=== PATIENT | female | born 1965 ===

== ENCOUNTER 2020-09-03 11:02 | Outpatient (REF) | payer MEDICARE, MEDICAID, SELFPAY ==
--- NOTE | 2020-09-03 | MM_ITS ---
EXAMINATION: MM SCREENING DIGITAL BREAST TOMOSYNTHESIS, BILATERAL CLINICAL INFORMATION: Screening. Asymptomatic. The lifetime risk of breast cancer based on the Tyrer-Cuzick Model is 16%. COMPARISON: Mammography: 03/22/2018, 12/31/2016 TECHNIQUE: Digital breast tomosynthesis is performed in both the craniocaudal and mediolateral oblique views along with computer-aided detection (CAD). Synthesized 2D images are generated from the tomosynthesis. FINDINGS: The breasts are almost entirely fatty (ACR BI-RADS breast composition Category a). There are no significant masses, abnormal calcifications, or other abnormalities. Background stromal densities are stable. The axilla and skin contours are unremarkable. MM/MM tomosynthesis screening BI IMPRESSION: No mammographic evidence of malignancy. ASSESSMENT: BI-RADS 1: Negative RECOMMENDATION: Routine annual mammography screening. This patient's information was entered into a reminder system with a target due date for their next mammogram.
== END 2020-09-03 11:03 | disposition home or self-care (01) ==
LOC: HO.MAMMO 11:02
PROVIDERS: Visit Provider Internal Medicine
DX: Z12.31 Encounter for screening mammogram for malignant neoplasm of breast (principal)
CPT/HCPCS: 77063; 77067

== ENCOUNTER → 2020-09-20 11:24 | Outpatient (BNVA) | payer MEDICARE, MEDICAID, SELFPAY | PROVIDERS: PCP Internal Medicine; Referring Provider Internal Medicine; Visit Provider Internal Medicine Endocrinology, Diabetes & Metabolism | DX: Z13.89 Encounter for screening for other disorder (principal) | CPT/HCPCS: Q3014 ==

== ENCOUNTER 2020-09-21 09:48 | Outpatient (REF) | payer MEDICARE, MEDICAID, SELFPAY ==
[2020-09-21 11:28] LABS: Estimated Average Glucose 171 mg/dL; Hemoglobin A1c % 7.6 %
[2020-09-21 11:29] LABS: Alanine Aminotransferase 21 U/L (0-31); Albumin Level 4.5 g/dL (3.5-5.0); Alkaline Phosphatase 93 U/L (39-117); Anion Gap 15 (12-20); Aspartate Amino Transferase 27 U/L (5-31); Bilirubin Total 0.6 mg/dL (0.0-1.0); Blood Urea Nitrogen 14 mg/dL (9-16); Calcium 9.5 mg/dL (8.4-10.2); Carbon Dioxide 28 mmol/L (22-29); Chloride 101 mmol/L (96-108); Estimated Glomerular Filt Rate > 60; Glucose Fasting 113 mg/dL (60-99); Potassium 4.7 mmol/l (3.3-5.1); Sodium 139 mmol/L (135-145); Total Protein 7.3 g/dL (6.5-8.0)
== END 2020-09-21 09:49 | disposition home or self-care (01) ==
LOC: HO.LAB 09:48
PROVIDERS: PCP Internal Medicine; Visit Provider Internal Medicine Endocrinology, Diabetes & Metabolism
DX: E11.65 Type 2 diabetes mellitus with hyperglycemia (principal)
CPT/HCPCS: 80053; 83036

== ENCOUNTER 2020-11-01 10:14 | Outpatient (REF) | payer MEDICARE, MEDICAID, SELFPAY | END 2020-11-01 10:15 | disposition home or self-care (01) | LOC: HO.LAB 10:14 | PROVIDERS: PCP Internal Medicine; Visit Provider Internal Medicine | DX: Z20.828 Contact with and (suspected) exposure to other viral communicable diseases (principal) | CPT/HCPCS: C9803; U0003 ==

== ENCOUNTER 2020-11-12 12:36 | Outpatient (REF) | payer MEDICARE, MEDICAID, SELFPAY ==
[2020-11-13 11:57] LABS: BV Int Neg Control Negative (Negative); BV Int Pos Control Positive (Positive)
[2020-11-15 23:57] LABS: HPV mRNA E6/E7 rflx Not Detected (Not Detected)
== END 2020-11-12 12:37 | disposition home or self-care (01) ==
LOC: HO.LAB 12:36
PROVIDERS: PCP Internal Medicine; Visit Provider Advanced Practice Midwife
DX: Z12.4 Encounter for screening for malignant neoplasm of cervix (principal); N89.8 Other specified noninflammatory disorders of vagina; E66.01 Morbid (severe) obesity due to excess calories; Z68.41 Body mass index [BMI] 40.0-44.9, adult
CPT/HCPCS: 36415; 87480; 87510; 87624; 87660; 88142

== ENCOUNTER 2020-12-08 09:35 | Emergency (ER) | payer MEDICARE, MEDICAID, SELFPAY ==
--- NOTE | 2020-12-08 09:08 | ECG_ITS ---
Test Reason : CHEST PAIN Blood Pressure : / mmHG Vent. Rate : 089 BPM Atrial Rate : 089 BPM P-R Int : 140 ms QRS Dur : 088 ms QT Int : 380 ms P-R-T Axes : 057 026 059 degrees QTc Int : 462 ms Normal sinus rhythm Normal ECG When compared with ECG of 27-MAY-2018 09:00, No significant change was found Referred By: Karina Burger Electronically Signed By:TERESA RAMIREZ MD
[2020-12-08 09:47] VITALS: BP 144/84; BP 146/59; PULSE 83; PULSE 89; RESP 20; TEMP 36.7; O2SAT 100; BMI 41.4
--- NOTE | 2020-12-08 10:05 | XR_ITS ---
EXAMINATION: XR CHEST CLINICAL INFORMATION: CP COMPARISON: 10/23/2012 TECHNIQUE: Frontal view of the chest was obtained. FINDINGS: Cardiac leads overlie the chest. Cardiac and mediastinal contours are normal. Pulmonary vasculature is unremarkable. Lungs are clear. No consolidation, pneumothorax, or pleural effusion. No acute osseous findings. Degenerative spondylosis is present of the thoracic spine. XR/XR chest 1V IMPRESSION: No acute pulmonary findings.
--- NOTE | 2020-12-08 10:06 | ED.GENADULT ---
HPI - General Adult General Chief complaint: Dyspnea Stated complaint: SOB,+COVID Time Seen by Provider: 12/08/20 10:04 Source: patient, EMS and transportation aid Mode of arrival: EMS Limitations: no limitations History of Present Illness HPI narrative: 55-year-old female brought in for shortness of breath since this morning, chest pain started at 06:00, patient describes the pain as dull pressure pain to the left side of the chest, with no radiation, pain is associated with shortness of breath, patient also feel wheezing and coughing, patient describes the pain as a moderate in severity (5/10) and has been constant since 06:00 o'clock in the morning, nothing alleviates the pain, nothing make it worse. Patient remained while the patient in the ED (pain is constant for 3 hours now). Patient was tested positive for COVID 2 weeks ago, then patient had another test followed which was negative. No fever, no chills. Related Data Home Medications Medication Instructions Recorded Confirmed albuterol sulfate 90 mcg/actuation INHALATION 09/20/20 11/12/20 aerosol inhaler bupropion HCl 300 mg 24 hr tablet, mg PO 09/20/20 11/12/20 extended release buspirone 5 mg tablet mg PO BID tab 09/20/20 11/12/20 clonazepam 0.5 mg tablet 0.25 mg PO BEDTIME 09/20/20 11/12/20 duloxetine 60 mg capsule,delayed mg PO 09/20/20 11/12/20 release gabapentin 100 mg capsule mg PO 09/20/20 11/12/20 lisinopril 5 mg tablet mg PO 09/20/20 11/12/20 sertraline 100 mg tablet mg PO 09/20/20 11/12/20 atorvastatin 10 mg tablet 10 mg PO BEDTIME tab 10/09/20 11/12/20 Previous Rx's Medication Instructions Recorded canagliflozin 300 mg tablet 300 mg PO DAILY 30 Days #30 tab 09/20/20 insulin glargine 100 unit/mL (3 20 unit SUBCUT DAILY 30 Days #15 ml 09/20/20 mL) subcutaneous pen metformin 1,000 mg tablet 1,000 mg PO BID 90 Days #180 tab 09/20/20 pen needle, diabetic 32 gauge x #50 ea 09/20/20 semaglutide 0.5 mg SUBCUT QWEEK #1.5 ml 09/20/20 montelukast 10 mg tablet 10 mg PO QPM 90 Days #90 tab 10/09/20 aspirin 81 mg chewable tablet 1 tab PO DAILY #30 tab 11/04/20 cholecalciferol (vitamin D3) 50 50 mcg PO DAILY #90 cap 11/05/20 mcg (2,000 unit) capsule clotrimazole-betamethasone 1 1 appl TOPICAL BID 7 Days #45 g 11/12/20 %-0.05 % topical cream azithromycin 250 mg tablet See Rx Instructions PO .COMPLEX #6 11/21/20 tab diclofenac sodium 1 % topical gel 2 g TRANSDERMAL TID PRN #100 g 12/03/20 Allergies Allergy/AdvReac Type Severity Reaction Status Date / Time egg [EGG] Allergy Intermediate VOMITING Verified 09/20/20 11:16 oxycodone [OXYCODONE] Allergy Intermediate NAUSEA/NIGH Verified 09/20/20 11:16 TMARES Penicillins [PCN] Allergy Intermediate RASH Verified 09/20/20 11:16 tramadol [TRAMADOL] Allergy Intermediate ITCHING Verified 09/20/20 11:16 acetaminophen [Percocet] Allergy Unknown none Verified 09/20/20 11:16 codeine Allergy Unknown nightmares Verified 09/20/20 11:16 Review of Systems Review of Systems: All other systems are reviewed and are negative Constitutional: Reports as per HPI and Reports no additional constitutional complaints Eyes: Reports as per HPI and Reports no additional eye complaints Reports system reviewed and no additional complaints, except as documented Cardiovascular: Reports as per HPI and Reports no additional cardiovascular complaints Respiratory: Reports as per HPI and Reports no additional respiratory complaints Gastrointestinal: Reports as per HPI and Reports no additional gastrointestinal complaints Genitourinary: Reports no additional female genitourinary complaints Musculoskeletal: Reports no additional musculoskeletal complaints Skin/Breast: Reports system reviewed and no additional complaints, except as docu Psychiatric: Reports no additional psychiatric complaints Endocrine: Reports no additional endocrine complaints Hematologic/Lymphatic: Reports no additional hematologic/lymphatic complaints Allergic/Immunologic: Reports no additional allergic/immunologic complaints Reports system reviewed and no additional complaints, except as documented and Reports Abnormal speech present PMFSH Past Medical History Medical History Allergic rhinitis Anxiety Arthritis Asthma Asthma Benign essential hypertension Depression Diabetes mellitus Diabetes type 2, uncontrolled Diabetic acidosis, type I Diabetic nephropathy associated with type 2 diabetes mellitus Dyslipidemia Fibromyalgia Fibromyalgia GERD without esophagitis Hypertension Insomnia Iron deficiency long-term (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 Obesity Obesity (BMI 30-39.9) Osteoarthrosis Pure hypercholesterolemia Vitamin D deficiency Surgical History History of loop electrical excision procedure (LEEP) Hx of hernia repair Family History Family History Father Diabetes Mother No problems noted. Maternal Grandmother Breast cancer Social History Social History Alcohol intake: never Smoking Status: Never smoker Use of substances other than those prescribed or required for medical reasons: No Advance Directives: No Advance Directives Information Provided: No Physical Exam Vital Signs: Vital Signs: Last Vital Signs Temp 98.0 F 12/08/20 09:47 Pulse 81 12/08/20 11:25 Resp 20 12/08/20 11:25 BP 116/76 12/08/20 11:25 Pulse Ox 98 12/08/20 11:25 Body Mass Index 41.4 Vital signs have been reviewed as normal and appeared to be correct. Blood pressure in the high range. Heart rate normal. Respiration rate normal. Temperature normal. Oxygen saturation normal. Appearance: Alert. Oriented X3. No acute distress. Head: Normal external exam. Normocephalic. Atraumatic. No Brenner signs noted. No raccoon eyes noted Eyes: PERRLA. EOMI. Conjunctiva and sclera normal. Eyelids normal. ENT: EAC normal. TM's Normal. Pharynx normal. Uvula midline. Moist mucous membranes. No trismus noted. No drooling noted. No muffled voice noted. Neck: Normal inspection. Neck supple. FROM. No adenopathy. Thyroid Normal. No meningeal signs. No neck mass noted. CVS: Normal heart rate and rhythm. Heart sound normal. No murmurs noted. Pulses normal throughout. Respiratory: No respiratory distress. Painless inspiration. Breath sounds normal. Diffuse mild expiratory wheezes bilaterally, no rales/rhonchi noted. Chest nontender. No accessory muscle usage noted or decreased air movement noted. Abdomen: Soft and nontender. Bowel sounds normal in all 4 quadrants. No distention noted. No organomegaly noted. No visible injury noted. Back: No CVA tenderness. Full range of motion noted. Skin: Skin warm and dry. Normal skin color. Normal skin turgor. No rashes/lesions/lacerations noted. Extremities: No lower extremity edema. Extremities exhibit normal range of motion. Extremities nontender. Neuro: Oriented X 3. No motor deficit. No sensory deficit. Reflexes normal. Course Course Course Narrative: Assessment and plan. 55-year-old female came in with chest pain for the past 5 hours, shortness of breath, patient appear very anxious which felt to be contributing to patient's symptoms. Patient has unremarkable EKG, negative troponin (high sensitive), unremarkable chest x-ray, negative for COVID, patient feels and appear better. Spoke with the patient reassured her patient is okay to be discharged home. Medical Decision Making Lab Data Lab results reviewed: Yes I reviewed the patient's lab results. Result diagrams: 12/08/20 11:00 12/08/20 11:00 Labs: Lab Results 12/08/20 12/08/20 12/08/20 Range/Units 11:00 11:00 11:00 WBC 9.1 (4.8-10.8) X10*3/uL RBC 5.36 (4.20-5.50) X10*6/uL Hgb 13.2 (12.0-16.0) g/dl Hct 42.1 (37-47) % MCV 78.5 L (80-98) fL MCH 24.6 L (27.0-33.0) pg MCHC 31.4 (31.0-35.0) g/dl RDW 14.8 (11.0-16.0) % Plt Count 265 (160-400) X10*3/uL MPV 10.4 (9.4-12.3) fL Immature Gran % (Auto) 0.5 H (0.0-0.4) % Neut % (Auto) 76.0 H (45-73) % Lymph % (Auto) 19.2 L (20-40) % [place] % (Auto) 3.0 (2-11) % Eos % (Auto) 1.0 (0-4) % Baso % (Auto) 0.3 (0-2) % Lymph # (Auto) 1.8 (1.2-4.9) X10*3/uL [place] # (Auto) 0.3 (0.1-1.2) X10*3/uL Eos # (Auto) 0.1 (0.0-0.4) X10*3/uL Baso # (Auto) 0.0 (0.0-0.2) X10*3/uL Abs Immat Gran (auto) 0.05 H (0.00-0.03) X10*3/uL Absolute Neuts (auto) 6.9 (2.0-8.3) X10*3/uL Absolute Nucleated RBC 0.000 (0.0-0.012) X10*3/uL Nucleated RBC % (auto) 0.0 (0.0-0.2) /100WBC Sodium 139 (135-145) mmol/L Potassium 4.5 (3.3-5.1) mmol/L Chloride 102 (96-108) mmol/L Carbon Dioxide 25 (22-29) mmol/L Anion Gap 17 (12-20) BUN 13 (9-16) mg/dL Creatinine 0.74 (0.5-1.4) mg/dL Estim Creat Clear Calc 105.1 Estimated GFR > 60 Random Glucose 188 H (60-115) mg/dL Calcium 9.5 (8.4-10.2) mg/dL Total Bilirubin 0.8 (0.0-1.0) mg/dL Direct Bilirubin 0.2 (0.0-0.5) mg/dL AST 26 (5-31) U/L ALT 29 (0-31) U/L Alkaline Phosphatase 109 (39-117) U/L Troponin I High Sens < 3.5 (<3.5-17.0) ng/L Total Protein 6.8 (6.5-8.0) g/dL Albumin 4.2 (3.5-5.0) g/dL Lipase 77 (8-78) U/L COVID-19 ([facility]) (Negative) COVID-19 Clin Com 12/08/20 Range/Units 11:00 WBC (4.8-10.8) X10*3/uL RBC (4.20-5.50) X10*6/uL Hgb (12.0-16.0) g/dl Hct (37-47) % MCV (80-98) fL MCH (27.0-33.0) pg MCHC (31.0-35.0) g/dl RDW (11.0-16.0) % Plt Count (160-400) X10*3/uL MPV (9.4-12.3) fL Immature Gran % (Auto) (0.0-0.4) % Neut % (Auto) (45-73) % Lymph % (Auto) (20-40) % [place] % (Auto) (2-11) % Eos % (Auto) (0-4) % Baso % (Auto) (0-2) % Lymph # (Auto) (1.2-4.9) X10*3/uL [place] # (Auto) (0.1-1.2) X10*3/uL Eos # (Auto) (0.0-0.4) X10*3/uL Baso # (Auto) (0.0-0.2) X10*3/uL Abs Immat Gran (auto) (0.00-0.03) X10*3/uL Absolute Neuts (auto) (2.0-8.3) X10*3/uL Absolute Nucleated RBC (0.0-0.012) X10*3/uL Nucleated RBC % (auto) (0.0-0.2) /100WBC Sodium (135-145) mmol/L Potassium (3.3-5.1) mmol/L Chloride (96-108) mmol/L Carbon Dioxide (22-29) mmol/L Anion Gap (12-20) BUN (9-16) mg/dL Creatinine (0.5-1.4) mg/dL Estim Creat Clear Calc Estimated GFR Random Glucose (60-115) mg/dL Calcium (8.4-10.2) mg/dL Total Bilirubin (0.0-1.0) mg/dL Direct Bilirubin (0.0-0.5) mg/dL AST (5-31) U/L ALT (0-31) U/L Alkaline Phosphatase (39-117) U/L Troponin I High Sens (<3.5-17.0) ng/L Total Protein (6.5-8.0) g/dL Albumin (3.5-5.0) g/dL Lipase (8-78) U/L COVID-19 ([facility]) Negative (Negative) COVID-19 Clin Com See Note Imaging Data Chest x-ray: Radiologist's impression: No acute pulmonary findings. ECG Data Interpretation: Normal sinus rhythm at 89 beats per minute, normal axis deviation, normal intervals, no ST-T changes. Discharge Plan Discharge Clinical Impression: Anxiety Chest pain Qualifiers: Chest pain type: unspecified Qualified Code(s): R07.9 - Chest pain, unspecified Patient Disposition: Home, Self-Care Instructions: Chest Pain (ED) Prescriptions: No Action metformin 1,000 mg tablet 1,000 mg PO BID 90 Days Qty: 180 RF: 2 aspirin 81 mg tablet,chewable 1 tab PO DAILY Qty: 30 RF: 6 cholecalciferol (vitamin D3) 50 mcg (2,000 unit) capsule 50 mcg PO DAILY Qty: 90 RF: 1 azithromycin 250 mg tablet See Rx Instructions PO .COMPLEX Qty: 6 RF: 0 diclofenac sodium 1 % gel 2 g transdermal TID PRN (Reason: pain) Qty: 100 RF: 6 atorvastatin 10 mg tablet 10 mg PO BEDTIME RF: 0 montelukast 10 mg tablet 10 mg PO QPM 90 Days Qty: 90 RF: 3 albuterol sulfate 90 mcg/actuation HFA aerosol inhaler inhalation RF: 0 bupropion HCl 300 mg tablet extended release 24 hr PO RF: 0 buspirone 5 mg tablet PO BID RF: 0 duloxetine 60 mg capsule,delayed release(DR/EC) PO RF: 0 clonazepam 0.5 mg tablet 0.25 mg PO BEDTIME RF: 0 lisinopril 5 mg tablet PO RF: 0 sertraline 100 mg tablet PO RF: 0 gabapentin 100 mg capsule PO RF: 0 canagliflozin 300 mg tablet 300 mg PO DAILY 30 Days Qty: 30 RF: 6 insulin glargine 100 unit/mL (3 mL) insulin pen 20 unit subcut DAILY 30 Days Qty: 15 RF: 6 Ozempic 0.25 mg or 0.5 mg(2 mg/1.5 mL) pen injector 0.5 mg subcut QWEEK Qty: 1.5 RF: 6 (DME) pen needle, diabetic [BD Pippa 2nd Gen Pen Needle] 32 gauge x 5/32 needle See Rx Instructions .MEDSUPPLY Qty: 50 RF: 4 clotrimazole-betamethasone 1-0.05 % cream 1 appl topical BID 7 Days Qty: 45 RF: 0 Referrals: Dwayne Stone MD [Primary Care Provider] - 2 days
[2020-12-08 11:04] LABS: MANUAL DIFF FLAG NO
[2020-12-08 11:06] LABS: Basophils Percent Auto 0.3 % (0-2); Eosinophils Absolute Auto 0.1 X10*3/uL (0.0-0.4); Hematocrit 42.1 % (37-47); Hemoglobin 13.2 g/dl (12.0-16.0); Imm Gran Abs Auto 0.05 X10*3/uL (0.00-0.03); Imm Gran Pct Auto 0.5 % (0.0-0.4); Lymphocytes Absolute Auto 1.8 X10*3/uL (1.2-4.9); Lymphocytes Percent Auto 19.2 % (20-40); Mean Corpuscular HGB Conc 31.4 g/dl (31.0-35.0); Mean Corpuscular Hemoglobin 24.6 pg (27.0-33.0); Mean Corpuscular Volume 78.5 fL (80-98); Mean Platelet Volume 10.4 fL (9.4-12.3); Monocytes Absolute Auto 0.3 X10*3/uL (0.1-1.2); Neutrophils Absolute Auto 6.9 X10*3/uL (2.0-8.3); Platelet Count 265 X10*3/uL (160-400); Red Blood Count 5.36 X10*6/uL (4.20-5.50); Red Cell Distribution Width 14.8 % (11.0-16.0); White Blood Count 9.1 X10*3/uL (4.8-10.8)
[2020-12-08 11:21] LABS: COVID-19 Test Negative (Negative); IDNOW Serial# 9DD0AD1C
[2020-12-08 11:25] VITALS: BP 116/76; PULSE 81; RESP 20; O2SAT 98
--- NOTE | 2020-12-08 11:26 | PC.NURSE ---
pt resting in the stretcher watching tv, respirations even and unlabored, pt still reports having some intermitted chest pressure /pulsating pain on the left side of her chest, vs stable ns on the monitor. pt awaiting test results.
[2020-12-08 11:42] LABS: Alanine Aminotransferase 29 U/L (0-31); Albumin Level 4.2 g/dL (3.5-5.0); Alkaline Phosphatase 109 U/L (39-117); Anion Gap 17 (12-20); Aspartate Amino Transferase 26 U/L (5-31); Bilirubin Direct 0.2 mg/dL (0.0-0.5); Bilirubin Total 0.8 mg/dL (0.0-1.0); Blood Urea Nitrogen 13 mg/dL (9-16); Calcium 9.5 mg/dL (8.4-10.2); Carbon Dioxide 25 mmol/L (22-29); Chloride 102 mmol/L (96-108); Creatinine Clr Calc Pharmacy 105.1; Estimated Glomerular Filt Rate > 60; Glucose Random 188 mg/dL (60-115); Lipase 77 U/L (8-78); Potassium 4.5 mmol/L (3.3-5.1); Sodium 139 mmol/L (135-145); Total Protein 6.8 g/dL (6.5-8.0)
[2020-12-08 11:45] LABS: Troponin-I High Sensitivity < 3.5 ng/L (<3.5-17.0)
== END 2020-12-08 13:26 | disposition home or self-care (01) ==
PROVIDERS: Emergency Provider Emergency Medicine; PCP Internal Medicine
DX: R07.9 Chest pain, unspecified (principal); F41.9 Anxiety disorder, unspecified; Z20.822 Contact with and (suspected) exposure to COVID-19; E11.9 Type 2 diabetes mellitus without complications; I10 Essential (primary) hypertension; J45.909 Unspecified asthma, uncomplicated; Z79.4 Long term (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; Z79.82 Long term (current) use of aspirin; Z79.899 Other long term (current) drug therapy
CPT/HCPCS: 36415; 71045; 80048; 80076; 83690; 84484; 85025; 87635; 93005; 99283; 99284

== ENCOUNTER 2021-01-07 10:16 | Outpatient (REF) | payer MEDICARE, MEDICAID, SELFPAY ==
[2021-01-07 11:14] LABS: MANUAL DIFF FLAG NO
[2021-01-07 11:34] LABS: Alanine Aminotransferase 20 U/L (0-31); Albumin Level 4.4 g/dL (3.5-5.0); Alkaline Phosphatase 88 U/L (39-117); Anion Gap 12 (12-20); Aspartate Amino Transferase 20 U/L (5-31); Bilirubin Total 0.8 mg/dL (0.0-1.0); Blood Urea Nitrogen 13 mg/dL (9-16); Calcium 9.7 mg/dL (8.4-10.2); Carbon Dioxide 28 mmol/L (22-29); Chloride 102 mmol/L (96-108); Cholesterol 159 mg/dL; Estimated Glomerular Filt Rate > 60; Glucose Fasting 203 mg/dL (60-99); HDL Cholesterol 61 mg/dL; Iron 44 mcg/dL (30-160); LDL Cholesterol Calculated 79 mg/dl; Percent Iron Saturation 11 % (15-50); Potassium 3.9 mmol/L (3.3-5.1); Sodium 138 mmol/L (135-145); Total Iron Binding Capacity 383 mcg/dL (228-428); Total Protein 6.9 g/dL (6.5-8.0); Triglycerides 96 mg/dL; Unsaturated Iron Binding 339 ug/dL
[2021-01-07 11:38] LABS: Estimated Average Glucose 174 mg/dL; Hemoglobin A1c % 7.7 %
[2021-01-07 11:55] LABS: Glucose Urine UA NEG (NEG); Leukocyte Esterase Urine NEG (NEG); Nitrite Urine NEG (NEG); Specific Gravity - Urine >= 1.030 (1.005-1.025); Urine Blood NEG (NEG); Urine Ketones 15 MG/DL (NEG); Urine Protein TRACE MG/DL (NEG-TRACE)
[2021-01-07 12:02] LABS: Appearance Urine HAZY; Color Urine DARK YELLOW
[2021-01-07 12:30] LABS: TSH reflex Free T4 1.05 uIU/mL (0.32-4.0); Vitamin D 25-OH Total 33.3 ng/mL (>30)
[2021-01-07 12:38] LABS: Creatinine Urine 298.72 mg/dL; Microalbum/Creatinine Ratio Ur 19.7 ug/mg cr
[2021-01-07 12:47] LABS: Basophils Percent Auto 0.2 % (0-2); Eosinophils Absolute Auto 0.1 X10*3/uL (0.0-0.4); Eosinophils Percent Auto 0.6 % (0-4); Hemoglobin 12.9 g/dl (12.0-16.0); Imm Gran Abs Auto 0.02 X10*3/uL (0.00-0.03); Imm Gran Pct Auto 0.2 % (0.0-0.4); Lymphocytes Absolute Auto 1.8 X10*3/uL (1.2-4.9); Lymphocytes Percent Auto 21.5 % (20-40); Mean Corpuscular HGB Conc 31.5 g/dl (31.0-35.0); Mean Corpuscular Hemoglobin 24.9 pg (27.0-33.0); Mean Corpuscular Volume 79.2 fL (80-98); Mean Platelet Volume 10.6 fL (9.4-12.3); Monocytes Absolute Auto 0.5 X10*3/uL (0.1-1.2); Monocytes Percent Auto 6.2 % (2-11); Neutrophils Absolute Auto 6.1 X10*3/uL (2.0-8.3); Neutrophils Percent Auto 71.3 % (45-73); Platelet Count 309 X10*3/uL (160-400); Red Blood Count 5.18 X10*6/uL (4.20-5.50); Red Cell Distribution Width 15.7 % (11.0-16.0); White Blood Count 8.5 X10*3/uL (4.8-10.8)
== END 2021-01-07 10:17 | disposition home or self-care (01) ==
LOC: HO.LAB 10:16
PROVIDERS: PCP Internal Medicine; Visit Provider Internal Medicine
DX: I10 Essential (primary) hypertension (principal); E61.1 Iron deficiency; K21.9 Gastro-esophageal reflux disease without esophagitis; M79.7 Fibromyalgia; E78.00 Pure hypercholesterolemia, unspecified; E11.9 Type 2 diabetes mellitus without complications; E66.9 Obesity, unspecified; E55.9 Vitamin D deficiency, unspecified
CPT/HCPCS: 36415; 80053; 80061; 81003; 82043; 82306; 83036; 83540; 84443; 85025

== ENCOUNTER → 2021-03-19 14:51 | Outpatient (BNVA) | payer MEDICARE, MEDICAID, SELFPAY | PROVIDERS: PCP Internal Medicine; Visit Provider Internal Medicine Endocrinology, Diabetes & Metabolism | DX: E11.65 Type 2 diabetes mellitus with hyperglycemia (principal); E11.21 Type 2 diabetes mellitus with diabetic nephropathy; Z79.4 Long term (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; I10 Essential (primary) hypertension; E78.5 Hyperlipidemia, unspecified; E66.01 Morbid (severe) obesity due to excess calories; Z68.41 Body mass index [BMI] 40.0-44.9, adult | CPT/HCPCS: 82947; 99212 ==

== ENCOUNTER 2021-06-11 13:07 | Outpatient (REF) | payer MEDICARE, MEDICAID, SELFPAY ==
[2021-06-11 14:30] LABS: MANUAL DIFF FLAG NO
[2021-06-11 14:40] LABS: Basophils Percent Auto 0.4 % (0-2); Eosinophils Absolute Auto 0.1 X10*3/uL (0.0-0.4); Eosinophils Percent Auto 1.3 % (0-4); Hematocrit 43.6 % (37-47); Hemoglobin 13.6 g/dl (12.0-16.0); Imm Gran Abs Auto 0.03 X10*3/uL (0.00-0.03); Imm Gran Pct Auto 0.4 % (0.0-0.4); Lymphocytes Absolute Auto 2.4 X10*3/uL (1.2-4.9); Lymphocytes Percent Auto 32.3 % (20-40); Mean Corpuscular HGB Conc 31.2 g/dl (31.0-35.0); Mean Corpuscular Hemoglobin 24.6 pg (27.0-33.0); Mean Platelet Volume 10.7 fL (9.4-12.3); Monocytes Absolute Auto 0.6 X10*3/uL (0.1-1.2); Monocytes Percent Auto 7.5 % (2-11); Neutrophils Absolute Auto 4.4 X10*3/uL (2.0-8.3); Neutrophils Percent Auto 58.1 % (45-73); Platelet Count 254 X10*3/uL (160-400); Red Blood Count 5.52 X10*6/uL (4.20-5.50); Red Cell Distribution Width 14.8 % (11.0-16.0); White Blood Count 7.6 X10*3/uL (4.8-10.8)
[2021-06-11 14:44] LABS: Estimated Average Glucose 194 mg/dL; Hemoglobin A1c % 8.4 %
[2021-06-11 15:00] LABS: Glucose Urine UA >=1000 MG/DL (NEG); Leukocyte Esterase Urine NEG (NEG); Nitrite Urine NEG (NEG); PH 6.5 (5.0-8.0); Specific Gravity - Urine <= 1.005 (1.005-1.025); Urine Blood NEG (NEG); Urine Ketones NEG (NEG); Urine Protein NEG (NEG-TRACE)
[2021-06-11 15:06] LABS: Appearance Urine CLEAR; Color Urine YELLOW
[2021-06-11 15:10] LABS: Creatinine Urine 72.53 mg/dL; Microalbumin Urine < 5.0 mg/L
[2021-06-11 15:13] LABS: RBC Urine 0 /HPF (0)
[2021-06-11 15:15] LABS: Alanine Aminotransferase 20 U/L (0-31); Albumin Level 4.3 g/dL (3.5-5.0); Alkaline Phosphatase 135 U/L (39-117); Anion Gap 14 (12-20); Aspartate Amino Transferase 27 U/L (5-31); Bilirubin Total 0.7 mg/dL (0.0-1.0); Blood Urea Nitrogen 12 mg/dL (9-16); Carbon Dioxide 28 mmol/L (22-29); Chloride 103 mmol/L (96-108); Cholesterol 222 mg/dL; Estimated Glomerular Filt Rate > 60; Glucose Fasting 171 mg/dL (60-99); HDL Cholesterol 61 mg/dL; LDL Cholesterol Calculated 133 mg/dl; Potassium 4.9 mmol/L (3.3-5.1); Sodium 140 mmol/L (135-145); Total Protein 7.3 g/dL (6.5-8.0); Triglycerides 143 mg/dL
[2021-06-11 15:17] LABS: Bacteria Urine 1+ /LPF; Squamous Epithelial Cell Urine 1+ /LPF; WBC Urine 0 /HPF (0-4)
[2021-06-11 15:47] LABS: Folate 18.1 ng/mL (> or = 4.0); Vitamin B12 326 pg/mL (200-900)
== END 2021-06-11 13:08 | disposition home or self-care (01) ==
LOC: HO.LAB 13:07
PROVIDERS: PCP Internal Medicine; Visit Provider Internal Medicine
DX: I10 Essential (primary) hypertension (principal); E61.1 Iron deficiency; K21.9 Gastro-esophageal reflux disease without esophagitis; M79.7 Fibromyalgia; E55.9 Vitamin D deficiency, unspecified; E78.00 Pure hypercholesterolemia, unspecified; E11.9 Type 2 diabetes mellitus without complications; E66.9 Obesity, unspecified; R41.3 Other amnesia; Z79.4 Long term (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
CPT/HCPCS: 36415; 80053; 80061; 81001; 81003; 82043; 82306; 82607; 82746; 83036; 84443; 85025

== ENCOUNTER 2021-09-08 08:30 | Emergency (ER) | payer MEDICARE, MEDICAID, SELFPAY ==
--- NOTE | ~2021-09-08 | CT_ITS ---
EXAMINATION: CT ABDOMEN AND PELVIS WITHOUT CONTRAST CLINICAL INFORMATION: Right lower quadrant pain radiating to right flank. Rule out kidney stone. COMPARISON: Previous CT of the abdomen and pelvis June 2017 and abdominal ultrasound May 2018 TECHNIQUE: Multidetector volumetric imaging was performed from the superior aspect of the liver through the pubic symphysis. Sagittal and coronal reformatted images were obtained on the technologist's workstation. This CT examination was performed using dose optimization techniques as appropriate, variously including the following: *Automated exposure control *Adjustment of mA and/or kV according to patient size (this includes techniques or standardized protocols for targeted exams where dose is matched to indication/reason for exam; i.e. extremities or head) *Use of iterative reconstruction technique DLP: 936 mGy-cm FINDINGS: LUNG BASES: The visualized lung bases are unremarkable. LIVER, GALLBLADDER, AND BILIARY TREE: The liver is normal in size, shape, and attenuation. There is a small calcification in the left lobe of the liver. No other focal hepatic lesion or biliary ductal dilatation is present. The gallbladder is unremarkable with no evidence of radiopaque gallstones, gallbladder wall thickening, or obvious pericholecystic inflammatory changes. PANCREAS: Unremarkable. SPLEEN: Unremarkable. ADRENAL GLANDS: Unremarkable. KIDNEYS AND URETERS: The kidneys are normal in size, shape, and attenuation. No hydronephrosis, hydroureter, or calculi seen. No perinephric stranding. BLADDER: Unremarkable. GASTROINTESTINAL TRACT: The small and large bowel are unremarkable. The appendix is unremarkable. ABDOMINAL WALL: No significant hernia is appreciated. LYMPH NODES: Normal. VASCULAR: Unremarkable. PELVIC VISCERA: Unremarkable. OSSEOUS STRUCTURES: There are degenerative changes of the spine. CT/CT abdomen pelvis wo con IMPRESSION: Unremarkable exam. No renal stone or hydronephrosis. Normal-appearing appendix.
[2021-09-08 08:32] VITALS: BP 132/55; PULSE 77; RESP 18; TEMP 36.6; O2SAT 99; BMI 39.7
[2021-09-08 09:21] LABS: Appearance Urine CLEAR; Color Urine YELLOW; Glucose Urine UA >=1000 MG/DL (NEG); Leukocyte Esterase Urine NEG (NEG); Nitrite Urine NEG (NEG); Specific Gravity - Urine 1.015 (1.005-1.025); Urine Blood NEG (NEG); Urine Ketones NEG (NEG); Urine Protein NEG (NEG-TRACE)
[2021-09-08 09:25] LABS: Mucus Urine TRACE /LPF; RBC Urine 0 /HPF (0); WBC Urine 0-2 /HPF (0-4)
--- NOTE | 2021-09-08 10:38 | ED.ABDPAIN ---
HPI - Abdominal Pain General Chief Complaint: Abdominal Pain Stated Complaint: r side pain back pain r leg pain Time Seen by Provider: 09/08/21 10:38 Source: patient Mode of arrival: ambulatory Limitations: no limitations History of Present Illness HPI narrative: 56 year old female past medical history significant for hypertension, diabetes mellitus type 2 insulin dependent, dyslipidemia, asthma, fibromyalgia, GERD, iron deficiency presents to the emergency department with back pain, abdominal pain, discomfort with ambulation, nausea and headache X1 month. Patient states this initially started as constant right lower quadrant pain is burning in nature, over the past month a has been progressively worsening and radiating to the right flank. She states that the pain now is so severe, that it is bothering her when she ambulates. She states today she has been having nausea, and reports a slight headache, that started yesterday. She states that she has been taking ibuprofen for the headache with little to no relief. She denies vision changes, chest pain, shortness of breath, vomiting, diarrhea, abdominal pain, weakness, changes in vision, changes in urination, changes in bowel habits, hematuria, urinary frequency and urgency. MD elicited complaint: abdominal pain Pertinent past history: none Onset (ago): month(s) (1) Pain Consistency: constant Location: RLQ Severity: severe Quality: stabbing and sharp Radiation: R flank Migration to: no migration Exacerbating factors: nothing Relieving factors: nothing Associated symptoms: nausea and other (headache since yesterday morning ) Treatments prior to arrival: NSAIDs Related Data Home Medications Medication Instructions Recorded Confirmed bupropion HCl 300 mg 24 hr tablet, 300 mg PO DAILY tab 01/08/21 06/11/21 extended release sertraline 100 mg tablet 100 mg PO DAILY tab 01/08/21 06/11/21 buspirone 5 mg tablet 10 mg PO BID tab 03/19/21 06/11/21 Previous Rx's Medication Instructions Recorded clotrimazole-betamethasone 1 1 appl TOPICAL BID 7 Days #45 g 11/12/20 %-0.05 % topical cream aspirin 81 mg chewable tablet 1 tab PO DAILY 90 Days #90 tab 01/09/21 montelukast 10 mg tablet 10 mg PO QPM 90 Days #90 tab 01/09/21 canagliflozin 300 mg tablet 300 mg PO DAILY 30 Days #30 tab 03/19/21 cholecalciferol (vitamin D3) 50 50 mcg PO DAILY #90 cap 03/19/21 mcg (2,000 unit) capsule (Vitamin D3) insulin glargine 100 unit/mL (3 20 unit SUBCUT DAILY 30 Days #15 ml 03/19/21 mL) subcutaneous pen lisinopril 5 mg tablet 5 mg PO DAILY 30 Days #30 tab 03/19/21 metformin 1,000 mg tablet 1,000 mg PO BID 90 Days #180 tab 03/19/21 blood sugar diagnostic #100 ea 03/29/21 albuterol sulfate 90 mcg/actuation 2 puff INHALATION Q6-8H PRN 90 04/15/21 aerosol inhaler Days #3 ea atorvastatin 10 mg tablet 10 mg PO BEDTIME 90 Days #90 tab 04/15/21 diclofenac sodium 1 % topical gel 2 g TRANSDERMAL TID PRN 90 Days #3 04/15/21 tube duloxetine 60 mg capsule,delayed 60 mg PO DAILY 90 Days #90 cap 04/15/21 release gabapentin 100 mg capsule 100 mg PO BID 90 Days #180 cap 04/15/21 omeprazole 20 mg capsule,delayed 20 mg PO DAILY 90 Days #90 cap 04/15/21 release pen needle, diabetic 32 gauge x #100 ea 04/15/2132 (BD Pippa 2nd Gen Pen Needle) sitagliptin 100 mg tablet (Januvia) 100 mg PO DAILY 90 Days #90 tab 04/15/21 ONE TOUCH ULTRA LANCETS #100 ea 04/19/21 ONE TOUCH ULTRA TEST STRIPS #100 ea 04/19/21 cyclobenzaprine 5 mg tablet 5 mg PO TID PRN 30 Days #90 tab 06/11/21 lidocaine 5 % topical ointment 1 appl TOPICAL TID PRN 15 Days 06/11/21 #120 g nystatin 100,000 unit/gram topical 1 appl TOPICAL BID 10 Days #60 g 06/11/21 powder cyclobenzaprine 10 mg tablet 10 mg PO Q8H #7 tab 09/08/21 Allergies Allergy/AdvReac Type Severity Reaction Status Date / Time egg [EGG] Allergy Intermediate VOMITING Verified 07/22/21 13:30 oxycodone [OXYCODONE] Allergy Intermediate NAUSEA/NIGH Verified 07/22/21 13:30 TMARES Penicillins [PCN] Allergy Intermediate RASH Verified 07/22/21 13:30 tramadol [TRAMADOL] Allergy Intermediate ITCHING Verified 07/22/21 13:30 acetaminophen [Percocet] Allergy Unknown none Verified 07/22/21 13:30 codeine Allergy Unknown nightmares Verified 07/22/21 13:30 Review of Systems Review of Systems Yes all other systems are reviewed and are negative Constitutional: Reports no additional constitutional complaints, Denies body ache(s), Denies chills, Denies fever(s), Reports headache(s) and Denies weakness Eyes: Reports no additional eye complaints and Denies change in vision Reports system reviewed and no additional complaints, except as documented, Denies dizziness, Reports headache(s), Denies nasal congestion, Denies nasal discharge and Denies neck pain Cardiovascular: Reports no additional cardiovascular complaints, Denies chest pain, Denies leg edema and Denies dyspnea Respiratory: Reports no additional respiratory complaints, Denies cough and Denies dyspnea Gastrointestinal: Reports no additional gastrointestinal complaints, Reports abdominal pain, Denies diarrhea, Reports nausea and Denies vomiting Genitourinary: Reports no additional female genitourinary complaints and Denies urinary incontinence Musculoskeletal: Reports no additional musculoskeletal complaints, Reports back pain (right flank ), Denies arthralgias, Denies joint swelling, Denies neck pain, Denies numbness, Denies tingling and Reports other (pain in back with ambulation) Skin/Breast: Reports system reviewed and no additional complaints, except as docu and Denies rash Reports system reviewed and no additional complaints, except as documented, Denies Abnormal speech present, Denies dizziness, Reports headache(s), Denies numbness, Denies tingling and Denies weakness Physical Exam Vital Signs: Vital Signs: Last Vital Signs Temp 97.8 F 09/08/21 08:32 Pulse 77 09/08/21 08:32 Resp 18 09/08/21 08:32 BP 132/55 L 09/08/21 08:32 Pulse Ox 99 09/08/21 08:32 Body Mass Index 39.7 Const: General: cooperative, healthy appearing, comfortable and no acute distress Orientation/consciousness: patient oriented x3 Limitations: no limitations HENMT: Head: Yes normal to inspection Ears: hearing grossly normal bilaterally General nose exam: Normal external nose present Face and sinus: Yes normal facial exam Mouth: Normal oral and palatal mucosa present Throat: Yes posterior oropharynx normal Eyes: General: appearance normal, both eyes and all related structures Pupils: Equal, round and reactive pupils present Neck: Neck: Yes normal visual inspection Chest: Chest palpation & inspection: normal inspection of the chest Resp: Effort & Inspection: normal respiratory effort Auscultation: clear to auscultation bilaterally Cardio: Rate: regular rate Rhythm: regular rhythm Peripheral pulses: Peripheral pulses 2+ throughout GI: Inspection: Yes normal to inspection Palpation (GI): Soft to palpation and Tenderness to palpation present (GI) in the RLQ Auscultation: normal bowel sounds : General: Yes CVA tenderness (to right ) and No no CVA tenderness Back/Spine/Pelvis: Back: No no CVA tenderness and CVA tenderness (to right ) Thoracic/Lumbar Spine: thoracic and lumbar spine normal to inspection, thoraco-lumbar ROM normal and straight leg raise negative bilaterally Skin: General skin exam: no rashes or lesions noted Neuro: General: patient oriented x3, gait normal, no focal motor deficits and normal sensation to monofilament Cranial nerves: Yes Equal, round and reactive pupils present Cognition (Neuro): normal cognition Speech: No Abnormal speech present Gait exam (Neuro): Normal gait present Motor exam (neuro): 5/5 motor strength present throughout Sensory Exam: Normal double simultaneous stimulation for sensation Coordination: [id number]-[id number] test normal, zrmf-ll-vqqo test normal, tandem gait normal, does not sway with eyes open and other (negative pronator drift. ) Extrem: Other: Pain to right flank with ambulation General: Yes normal to inspection Course Reevaluation(s) Reevaluation #1: No leukocytosis, no anemia, no evidence electrolyte abnormalities, UA clean. Dry CT of abdomen and pelvis shows no acute findings. Patient's pain is likely musculoskeletal in nature. She is safe for discharge home with PCP follow-up. She has been advised to return to the emergency department with new or worsening symptoms. Time: 12:15 MDM - Abdominal Pain MDM Narrative Medical decision making narrative: 1040 56 year old female past medical history significant for hypertension, diabetes mellitus type 2 insulin dependent, dyslipidemia, asthma, fibromyalgia, GERD, presens to the ED with RLQ that has slowly radiated to the right flank and caused her discomfort with ambulation over the past month. She also complains of nausea and Headache at this time. No hx of kidney stones. Denies urinary frequency, urgency, hematuria, fevers, chills, vomiting, diarrhea, , no head trauma, no changes in vision, chest pain, shortness of breath. Upon physical examination there is CVA tenderness to the right costovertebral angle, there is also pain to palpation to the right lower quadrant. Patient complains of pain with ambulation. Lungs are clear to auscultation. S1 and S2 appreciated for of murmurs. No focal neuro deficits. Nantqa-cw-cymn normal, izyp-tc-jkpn normal, normal tandem gait, no ataxia. 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 5/5 strength upper and lower extremities. Plan at this time obtain basic labs, liver, magnesium, lipase, dry scan of abdomen. Medical Records Attestation: I reviewed the patient's medical records. Lab Data Attestation: I reviewed the patient's lab results. Result diagrams: 09/08/21 10:59 09/08/21 10:59 Labs: Lab Results 09/08/21 09/08/21 09/08/21 Range/Units 09:08 10:59 10:59 WBC 6.7 (4.8-10.8) X10*3/uL RBC 5.38 (4.20-5.50) X10*6/uL Hgb 13.7 (12.0-16.0) g/dl Hct 42.8 (37.0-47.0) % MCV 79.6 L (80.0-98.0) fL MCH 25.5 L (27.0-33.0) pg MCHC 32.0 (31.0-35.0) g/dl RDW 15.9 (11.0-16.0) % Plt Count 231 (160-400) X10*3/uL MPV 9.8 (9.4-12.3) fL Immature Gran % (Auto) 0.3 (0.0-0.4) % Neut % (Auto) 54.7 (45-73) % Lymph % (Auto) 36.4 (20-40) % [place] % (Auto) 6.7 (2-11) % Eos % (Auto) 1.5 (0-4) % Baso % (Auto) 0.4 (0-2) % Lymph # (Auto) 2.4 (1.2-4.9) X10*3/uL [place] # (Auto) 0.5 (0.1-1.2) X10*3/uL Eos # (Auto) 0.1 (0.0-0.4) X10*3/uL Baso # (Auto) 0.0 (0.0-0.2) X10*3/uL Abs Immat Gran (auto) 0.02 (0.00-0.03) X10*3/uL Absolute Neuts (auto) 3.64 (2.0-8.3) x10*3/uL Absolute Nucleated RBC 0.000 (0.0-0.012) X10*3/uL Nucleated RBC % (auto) 0.0 (0.0-0.2) /100WBC Sodium 138 (135-145) mmol/L Potassium 4.8 (3.3-5.1) mmol/L Chloride 102 (96-108) mmol/L Carbon Dioxide 30 H (22-29) mmol/L Anion Gap 11 L (12-20) BUN 13 (9-16) mg/dL Creatinine 0.78 (0.5-1.4) mg/dL Estim Creat Clear Calc 96.2 Estimated GFR > 60 Random Glucose 219 H (60-115) mg/dL Calcium 9.7 (8.4-10.2) mg/dL Magnesium 2.1 (1.6-2.6) mg/dL Total Bilirubin 0.5 (0.0-1.0) mg/dL Direct Bilirubin 0.2 (0.0-0.5) mg/dL AST 26 (5-31) U/L ALT 25 (0-31) U/L Alkaline Phosphatase 128 H (39-117) U/L Total Protein 6.8 (6.5-8.0) g/dL Albumin 4.3 (3.5-5.0) g/dL Lipase 123 H (8-78) U/L Urine Color YELLOW Urine Appearance CLEAR Urine pH 6.0 (5.0-8.0) Ur Specific [place] 1.015 (1.005-1.025) Urine Protein NEG (NEG-TRACE) MG/DL Urine Glucose (UA) >=1000 H (NEG) MG/DL Urine Ketones NEG (NEG) MG/DL Urine Blood NEG (NEG) Urine Nitrite NEG (NEG) Ur Leukocyte Esterase NEG (NEG) Urine RBC 0 (0) /HPF Urine WBC 0-2 (0-4) /HPF Ur Squamous Epith Cells NONE /LPF Urine Bacteria NONE /LPF Urine Mucus TRACE /LPF Imaging Data CT scan - abdomen: Attestation: I personally reviewed and interpreted this imaging study as follows: Radiologist's impression: CT/CT abdomen pelvis wo con IMPRESSION: Unremarkable exam. No renal stone or hydronephrosis. Normal-appearing appendix. Discharge Plan Discharge Clinical Impression: Flank pain Abdominal pain Qualifiers: Abdominal location: right lower quadrant Qualified Code(s): R10.31 - Right lower quadrant pain Patient Disposition: Home, Self-Care Instructions: Abdominal Pain (ED), Flank Pain (ED) Additional Instructions: Please follow-up with your primary care provider. Your labs showed no infection, your urine showed no urinary tract infection, the CT scan of your abdomen showed no abnormal findings. You can take cyhi-qvr-vcseunc anti-inflammatory medications such as ibuprofen, or Tylenol. You can also choose to take both of them ibuprofen every 6 hours, and Tylenol every 4. Return to the emergency department with new or worsening symptoms, reviewed developed worsening abdominal pain, fevers, chills, nausea or vomiting. Prescriptions: New cyclobenzaprine 10 mg tablet 10 mg PO Q8H Qty: 7 RF: 0 No Action aspirin 81 mg tablet,chewable 1 tab PO DAILY 90 Days Qty: 90 RF: 3 montelukast 10 mg tablet 10 mg PO QPM 90 Days Qty: 90 RF: 3 (DME) blood sugar diagnostic Strip See Rx Instructions ea Not Applicable TID Qty: 100 RF: 9 (DME) ONE TOUCH ULTRA LANCETS See Rx Instructions .Route .MEDSUPPLY Qty: 100 RF: 3 (DME) ONE TOUCH ULTRA TEST STRIPS See Rx Instructions .Route .MEDSUPPLY Qty: 100 RF: 3 albuterol sulfate 90 mcg/actuation HFA aerosol inhaler 2 puff inhalation Q6-8H PRN (Reason: shortness of breath or wheezing) 90 Days Qty: 3 RF: 3 atorvastatin 10 mg tablet 10 mg PO BEDTIME 90 Days Qty: 90 RF: 3 duloxetine 60 mg capsule,delayed release(DR/EC) 60 mg PO DAILY 90 Days Qty: 90 RF: 3 diclofenac sodium 1 % gel 2 g transdermal TID PRN (Reason: pain) 90 Days Qty: 3 RF: 3 gabapentin 100 mg capsule 100 mg PO BID 90 Days Qty: 180 RF: 3 Januvia 100 mg tablet 100 mg PO DAILY 90 Days Qty: 90 RF: 3 (DME) pen needle, diabetic [BD Pippa 2nd Gen Pen Needle] 32 gauge x 5/32 needle See Rx Instructions .MEDSUPPLY Qty: 100 RF: 3 omeprazole 20 mg capsule,delayed release(DR/EC) 20 mg PO DAILY 90 Days Qty: 90 RF: 3 nystatin 100,000 unit/gram powder 1 appl topical BID 10 Days Qty: 60 RF: 1 lidocaine 5 % ointment 1 appl topical TID PRN (Reason: pain) 15 Days Qty: 120 RF: 2 cyclobenzaprine 5 mg tablet 5 mg PO TID PRN (Reason: muscle spasm) 30 Days Qty: 90 RF: 0 bupropion HCl 300 mg tablet extended release 24 hr 300 mg PO DAILY RF: 0 sertraline 100 mg tablet 100 mg PO DAILY RF: 0 buspirone 5 mg tablet 10 mg PO BID RF: 0 canagliflozin 300 mg tablet 300 mg PO DAILY 30 Days Qty: 30 RF: 6 cholecalciferol (vitamin D3) [Vitamin D3] 50 mcg (2,000 unit) capsule 50 mcg PO DAILY Qty: 90 RF: 1 insulin glargine 100 unit/mL (3 mL) insulin pen 20 unit subcut DAILY 30 Days Qty: 15 RF: 6 lisinopril 5 mg tablet 5 mg PO DAILY 30 Days Qty: 30 RF: 10 metformin 1,000 mg tablet 1,000 mg PO BID 90 Days Qty: 180 RF: 2 clotrimazole-betamethasone 1-0.05 % cream 1 appl topical BID 7 Days Qty: 45 RF: 0 Referrals: Dwayne Stone MD [Primary Care Provider] - 2 days Interventions: ED Discharge Assessment Last Done: 09/08/21 12:19 Discharge Date/Time: 09/08/21 12:20 [facility] Past Medical History Attestation statement: The following information was validated with the patient. 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 Maternal Grandmother Breast cancer Social History Social History Housing: Apartment Alcohol intake: never Patient Tobacco Use Status: Never used Tobacco Second Hand Smoke Exposure: Yes Advance Directives: No Advance Directives Information Provided: Yes service: No Current occupational status: disabled
[2021-09-08 11:03] LABS: Basophils Percent Auto 0.4 % (0-2); Eosinophils Absolute Auto 0.1 X10*3/uL (0.0-0.4); Eosinophils Percent Auto 1.5 % (0-4); Hematocrit 42.8 % (37.0-47.0); Hemoglobin 13.7 g/dl (12.0-16.0); Imm Gran Abs Auto 0.02 X10*3/uL (0.00-0.03); Imm Gran Pct Auto 0.3 % (0.0-0.4); Lymphocytes Absolute Auto 2.4 X10*3/uL (1.2-4.9); Lymphocytes Percent Auto 36.4 % (20-40); MANUAL DIFF FLAG NO; Mean Corpuscular Hemoglobin 25.5 pg (27.0-33.0); Mean Corpuscular Volume 79.6 fL (80.0-98.0); Mean Platelet Volume 9.8 fL (9.4-12.3); Monocytes Absolute Auto 0.5 X10*3/uL (0.1-1.2); Monocytes Percent Auto 6.7 % (2-11); Neutrophils Absolute Auto 3.64 x10*3/uL (2.0-8.3); Neutrophils Percent Auto 54.7 % (45-73); Platelet Count 231 X10*3/uL (160-400); Red Blood Count 5.38 X10*6/uL (4.20-5.50); Red Cell Distribution Width 15.9 % (11.0-16.0); White Blood Count 6.7 X10*3/uL (4.8-10.8)
[2021-09-08] MEDS: Ondansetron ODT 4 MG TAB.RAPDIS TRANSLINGU (11:14)
[2021-09-08 11:26] LABS: Alanine Aminotransferase 25 U/L (0-31); Albumin Level 4.3 g/dL (3.5-5.0); Alkaline Phosphatase 128 U/L (39-117); Anion Gap 11 (12-20); Aspartate Amino Transferase 26 U/L (5-31); Bilirubin Direct 0.2 mg/dL (0.0-0.5); Bilirubin Total 0.5 mg/dL (0.0-1.0); Blood Urea Nitrogen 13 mg/dL (9-16); Calcium 9.7 mg/dL (8.4-10.2); Carbon Dioxide 30 mmol/L (22-29); Chloride 102 mmol/L (96-108); Creatinine Clr Calc Pharmacy 96.2; Estimated Glomerular Filt Rate > 60; Glucose Random 219 mg/dL (60-115); Lipase 123 U/L (8-78); Magnesium 2.1 mg/dL (1.6-2.6); Potassium 4.8 mmol/L (3.3-5.1); Sodium 138 mmol/L (135-145); Total Protein 6.8 g/dL (6.5-8.0)
== END 2021-09-08 12:20 | disposition home or self-care (01) ==
PROVIDERS: Nurse Practitioner Family; Emergency Provider Emergency Medicine; PCP Internal Medicine
DX: R10.9 Unspecified abdominal pain (principal); R10.31 Right lower quadrant pain; R51.9 Headache, unspecified; R11.0 Nausea; I10 Essential (primary) hypertension; E11.9 Type 2 diabetes mellitus without complications; E78.5 Hyperlipidemia, unspecified; Z79.4 Long term (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; Z79.899 Other long term (current) drug therapy
CPT/HCPCS: 36415; 74176; 80048; 80076; 81001; 83690; 83735; 85025; 99283; 99284

== ENCOUNTER 2021-10-01 14:10 | Outpatient (REF) | payer MEDICARE, MEDICAID, SELFPAY ==
--- NOTE | ~2021-10-01 | XR_ITS ---
EXAMINATION: XR RIGHT HIP WITH AP PELVIS CLINICAL INFORMATION: Other specified disorders of bone, other site COMPARISON: CT abdomen and pelvis dated 09/08/2021 TECHNIQUE: AP and frog-leg lateral views of the right hip and an AP view of the pelvis. FINDINGS: Right hip joint appears relatively well-preserved without fracture or malalignment. Left hip joint and SI joints also appear well-preserved. Small enthesopathic spurs are present at the greater trochanters and at the anterosuperior iliac spines. No osseous lesions. No fractures. Degenerative spondylosis is evident in the lower lumbar spine. Soft tissues are unremarkable. XR/XR hip RT w PEL1V IMPRESSION: No acute osseous findings in the pelvis and right hip. Hip joints appear relatively well-preserved.
[2021-10-01 15:43] LABS: Alanine Aminotransferase 29 U/L (0-31); Albumin Level 4.5 g/dL (3.5-5.0); Alkaline Phosphatase 137 U/L (39-117); Anion Gap 13 (12-20); Aspartate Amino Transferase 34 U/L (5-31); Bilirubin Total 0.5 mg/dL (0.0-1.0); Blood Urea Nitrogen 12 mg/dL (9-16); Calcium 10.5 mg/dL (8.4-10.2); Carbon Dioxide 30 mmol/L (22-29); Chloride 102 mmol/L (96-108); Cholesterol 281 mg/dL; Estimated Glomerular Filt Rate > 60; Glucose Fasting 158 mg/dL (60-99); HDL Cholesterol 71 mg/dL; LDL Cholesterol Calculated 144 mg/dl; Potassium 4.9 mmol/L (3.3-5.1); Sodium 140 mmol/L (135-145); Total Protein 7.6 g/dL (6.5-8.0); Triglycerides 330 mg/dL
[2021-10-01 16:51] LABS: Appearance Urine CLEAR; Color Urine YELLOW; Glucose Urine UA >=1000 MG/DL (NEG); Leukocyte Esterase Urine 1+ (NEG); Nitrite Urine NEG (NEG); Specific Gravity - Urine 1.015 (1.005-1.025); UACC Culture Trigger YES; Urine Blood NEG (NEG); Urine Ketones NEG (NEG); Urine Protein NEG (NEG-TRACE)
[2021-10-01 17:27] LABS: Bacteria Urine 1+ /LPF; RBC Urine 0-2 /HPF (0); Squamous Epithelial Cell Urine 1+ /LPF
== END 2021-10-01 14:11 | disposition home or self-care (01) ==
LOC: HO.XRAY 14:10
PROVIDERS: PCP Internal Medicine; Visit Provider Internal Medicine
DX: E78.00 Pure hypercholesterolemia, unspecified (principal); M89.8X8 Other specified disorders of bone, other site; I10 Essential (primary) hypertension; E11.9 Type 2 diabetes mellitus without complications; Z79.4 Long term (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
CPT/HCPCS: 36415; 73502; 80053; 80061; 81001; 87086

== ENCOUNTER → 2021-11-26 12:27 | Outpatient (BNVA) | payer MEDICARE, MEDICAID, SELFPAY | PROVIDERS: Visit Provider Nurse Practitioner Gerontology | DX: E11.65 Type 2 diabetes mellitus with hyperglycemia (principal); E11.21 Type 2 diabetes mellitus with diabetic nephropathy; I10 Essential (primary) hypertension; E78.5 Hyperlipidemia, unspecified; E66.01 Morbid (severe) obesity due to excess calories; Z68.41 Body mass index [BMI] 40.0-44.9, adult; Z79.4 Long term (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 | CPT/HCPCS: 82947; 99212 ==

== ENCOUNTER 2021-12-06 07:43 | Outpatient (REF) | payer MEDICARE, MEDICAID, SELFPAY ==
--- NOTE | ~2021-12-06 | XR_ITS ---
EXAMINATION: XR KNEE, LEFT CLINICAL INFORMATION: Pain in left knee COMPARISON: 04/27/2017 TECHNIQUE: Four views of the left knee. FINDINGS: Moderate degenerative change in the left knee with cartilage space narrowing, tricompartmental marginal osteophyte formation. No joint effusion visualized. Bony spurring on the undersurface of the patellar. Some prepatellar soft tissue swelling. On the sunrise view there is a subtle lucency along the medial aspect of the patella. XR/XR knee LT 3V IMPRESSION: Moderate degenerative change in the left knee. Prepatellar soft tissue swelling. Subtle lucency along the medial aspect of the patella on the sunrise view, indeterminate for fracture, this could be degenerative. No joint effusion is present. Correlate with physical exam, it suspicion for fracture consider CT.
[2021-12-06 08:03] LABS: MANUAL DIFF FLAG NO
[2021-12-06 08:20] LABS: Basophils Percent Auto 0.4 % (0-2); Eosinophils Absolute Auto 0.1 X10*3/uL (0.0-0.4); Eosinophils Percent Auto 1.3 % (0-4); Hematocrit 42.7 % (37.0-47.0); Hemoglobin 13.4 g/dl (12.0-16.0); Imm Gran Abs Auto 0.02 X10*3/uL (0.00-0.03); Imm Gran Pct Auto 0.3 % (0.0-0.4); Lymphocytes Absolute Auto 2.2 X10*3/uL (1.2-4.9); Mean Corpuscular HGB Conc 31.4 g/dl (31.0-35.0); Mean Corpuscular Hemoglobin 25.5 pg (27.0-33.0); Mean Corpuscular Volume 81.2 fL (80.0-98.0); Mean Platelet Volume 10.1 fL (9.4-12.3); Monocytes Absolute Auto 0.5 X10*3/uL (0.1-1.2); Monocytes Percent Auto 6.6 % (2-11); Neutrophils Absolute Auto 4.7 x10*3/uL (2.0-8.3); Neutrophils Percent Auto 62.4 % (45-73); Platelet Count 251 X10*3/uL (160-400); Red Blood Count 5.26 X10*6/uL (4.20-5.50); Red Cell Distribution Width 14.5 % (11.0-16.0); White Blood Count 7.5 X10*3/uL (4.8-10.8)
[2021-12-06 08:43] LABS: Estimated Average Glucose 174 mg/dL; Hemoglobin A1c % 7.7 %
[2021-12-06 08:55] LABS: Alanine Aminotransferase 15 U/L (0-31); Albumin Level 4.2 g/dL (3.5-5.0); Alkaline Phosphatase 109 U/L (39-117); Anion Gap 10 (12-20); Aspartate Amino Transferase 18 U/L (5-31); Bilirubin Total 0.5 mg/dL (0.0-1.0); Blood Urea Nitrogen 11 mg/dL (9-16); Calcium 9.9 mg/dL (8.4-10.2); Carbon Dioxide 32 mmol/L (22-29); Chloride 104 mmol/L (96-108); Cholesterol 158 mg/dL; Estimated Glomerular Filt Rate > 60; Glucose Fasting 157 mg/dL (60-99); HDL Cholesterol 59 mg/dL; LDL Cholesterol Calculated 82 mg/dl; Potassium 4.3 mmol/L (3.3-5.1); Sodium 142 mmol/L (135-145); Triglycerides 89 mg/dL
[2021-12-06 09:16] LABS: TSH reflex Free T4 1.46 uIU/mL (0.32-4.0); Vitamin D 25-OH Total 36.8 ng/mL (>30)
[2021-12-06 09:32] LABS: Appearance Urine CLEAR; Color Urine YELLOW; Glucose Urine UA >=1000 MG/DL (NEG); Leukocyte Esterase Urine NEG (NEG); Nitrite Urine NEG (NEG); PH 5.5 (5.0-8.0); Specific Gravity - Urine 1.025 (1.005-1.025); Urine Blood NEG (NEG); Urine Ketones NEG (NEG); Urine Protein NEG (NEG-TRACE)
[2021-12-06 10:07] LABS: Creatinine Urine 94.55 mg/dL; Microalbum/Creatinine Ratio Ur 10.5 ug/mg cr
[2021-12-06 11:03] LABS: RBC Urine 0 /HPF (0); WBC Urine 0-2 /HPF (0-4)
[2021-12-06 11:04] LABS: Squamous Epithelial Cell Urine 1+ /LPF
== END 2021-12-06 07:44 | disposition home or self-care (01) ==
LOC: HO.LAB 07:43
PROVIDERS: PCP Internal Medicine; Visit Provider Internal Medicine
DX: M25.562 Pain in left knee (principal); E78.00 Pure hypercholesterolemia, unspecified; E11.9 Type 2 diabetes mellitus without complications; I10 Essential (primary) hypertension; E55.9 Vitamin D deficiency, unspecified
CPT/HCPCS: 36415; 73562; 80053; 80061; 81001; 82043; 82306; 83036; 84443; 85025

== ENCOUNTER 2022-02-03 11:18 | Outpatient (REF) | payer OTHER, MEDICARE, MEDICAID, SELFPAY ==
[2022-02-04 08:43] LABS: BV Int Neg Control Negative (Negative); BV Int Pos Control Positive (Positive)
== END 2022-02-03 11:19 | disposition home or self-care (01) ==
LOC: HO.LAB 11:18
PROVIDERS: PCP Internal Medicine; Visit Provider Advanced Practice Midwife
DX: R10.9 Unspecified abdominal pain (principal); B37.2 Candidiasis of skin and nail; E66.9 Obesity, unspecified; B37.3 Candidiasis of vulva and vagina; Z20.2 Contact with and (suspected) exposure to infections with a predominantly sexual mode of transmission
CPT/HCPCS: 87480; 87510; 87660

== ENCOUNTER 2022-02-26 10:01 | Outpatient (REF) | payer OTHER, SELFPAY ==
--- NOTE | ~2022-02-26 | US_ITS ---
EXAMINATION: US PELVIS CLINICAL INFORMATION: Candidiasis. COMPARISON: None TECHNIQUE: Ultrasound of the pelvis is performed using both transabdominal along with Doppler. Transvaginal was not performed. Patient refuses. FINDINGS: The uterus is 6.2 x 3.6 x 4.7 cm. Anteverted, anteflexed. Uterus is poorly visualized. The endometrial thickness cannot be ascertained by the epic beacon analyst. The ovarian structures are not seen. There is no free fluid. US/US pelvic and transvaginal IMPRESSION: Limited from transabdominal scan only. Patient refuses transabdominal scan. Uterus is not adequately evaluated. Ovaries are not seen.
== END 2022-02-26 10:02 | disposition home or self-care (01) ==
LOC: HO.US 10:01
PROVIDERS: Visit Provider Advanced Practice Midwife
DX: R10.9 Unspecified abdominal pain (principal); B37.2 Candidiasis of skin and nail; B37.3 Candidiasis of vulva and vagina; E66.9 Obesity, unspecified
CPT/HCPCS: 76830; 76856

== ENCOUNTER → 2022-03-13 12:07 | Outpatient (BNVA) | payer OTHER, SELFPAY | PROVIDERS: Visit Provider Advanced Practice Midwife | DX: B37.3 Candidiasis of vulva and vagina (principal); E66.9 Obesity, unspecified | CPT/HCPCS: Q3014 ==

== ENCOUNTER 2022-05-02 09:07 | Outpatient (REF) | payer OTHER, SELFPAY ==
[2022-05-02 09:26] LABS: MANUAL DIFF FLAG NO
[2022-05-02 10:09] LABS: Appearance Urine CLEAR; Color Urine YELLOW; Glucose Urine UA >=1000 MG/DL (NEG); Leukocyte Esterase Urine NEG (NEG); Nitrite Urine NEG (NEG); Urine Blood NEG (NEG); Urine Ketones NEG (NEG); Urine Protein NEG (NEG-TRACE)
[2022-05-02 10:12] LABS: Basophils Percent Auto 0.4 % (0-2); Eosinophils Absolute Auto 0.1 X10*3/uL (0.0-0.4); Eosinophils Percent Auto 1.6 % (0-4); Hematocrit 41.2 % (37.0-47.0); Hemoglobin 12.9 g/dl (12.0-16.0); Imm Gran Abs Auto 0.04 X10*3/uL (0.00-0.03); Imm Gran Pct Auto 0.5 % (0.0-0.4); Lymphocytes Absolute Auto 2.2 X10*3/uL (1.2-4.9); Lymphocytes Percent Auto 30.2 % (20-40); Mean Corpuscular HGB Conc 31.3 g/dl (31.0-35.0); Mean Corpuscular Hemoglobin 24.8 pg (27.0-33.0); Mean Corpuscular Volume 79.2 fL (80.0-98.0); Mean Platelet Volume 10.4 fL (9.4-12.3); Monocytes Absolute Auto 0.5 X10*3/uL (0.1-1.2); Monocytes Percent Auto 6.4 % (2-11); Neutrophils Absolute Auto 4.5 x10*3/uL (2.0-8.3); Neutrophils Percent Auto 60.9 % (45-73); Platelet Count 240 X10*3/uL (160-400); White Blood Count 7.4 X10*3/uL (4.8-10.8)
[2022-05-02 10:22] LABS: Estimated Average Glucose 186 mg/dL; Hemoglobin A1c % 8.1 %
[2022-05-02 10:36] LABS: Creatinine Urine 74.01 mg/dL; Microalbum/Creatinine Ratio Ur 18.9 ug/mg cr
[2022-05-02 10:36] LABS: Alanine Aminotransferase 22 U/L (0-31); Albumin Level 3.9 g/dL (3.5-5.0); Alkaline Phosphatase 137 U/L (39-117); Anion Gap 13 (12-20); Aspartate Amino Transferase 21 U/L (5-31); Bilirubin Total 0.4 mg/dL (0.0-1.0); Blood Urea Nitrogen 16 mg/dL (9-16); Calcium 8.8 mg/dL (8.4-10.2); Carbon Dioxide 24 mmol/L (22-29); Chloride 105 mmol/L (96-108); Cholesterol 217 mg/dL; Estimated Glomerular Filt Rate > 60; Glucose Fasting 211 mg/dL (60-99); HDL Cholesterol 61 mg/dL; LDL Cholesterol Calculated 125 mg/dl; Potassium 4.4 mmol/L (3.3-5.1); Sodium 138 mmol/L (135-145); Total Protein 6.6 g/dL (6.5-8.0); Triglycerides 157 mg/dL
[2022-05-02 10:44] LABS: RBC Urine 0 /HPF (0); Urine Talc Crystals TRACE /LPF; WBC Urine 0 /HPF (0-4)
[2022-05-02 11:01] LABS: TSH reflex Free T4 1.57 uIU/mL (0.32-4.0); Vitamin D 25-OH Total 33.3 ng/mL (>30)
== END 2022-05-02 09:08 | disposition home or self-care (01) ==
LOC: HO.LAB 09:07
PROVIDERS: PCP Internal Medicine; Visit Provider Internal Medicine
DX: I10 Essential (primary) hypertension (principal); E55.9 Vitamin D deficiency, unspecified; E78.00 Pure hypercholesterolemia, unspecified; E11.9 Type 2 diabetes mellitus without complications
CPT/HCPCS: 36415; 80053; 80061; 81001; 82043; 82306; 83036; 84443; 85025

== ENCOUNTER 2022-08-14 07:29 | Outpatient (REF) | payer OTHER, SELFPAY ==
[2022-08-14 07:51] LABS: MANUAL DIFF FLAG NO
[2022-08-14 08:00] LABS: Basophils Percent Auto 0.4 % (0-2); Eosinophils Absolute Auto 0.1 X10*3/uL (0.0-0.4); Eosinophils Percent Auto 1.9 % (0-4); Hematocrit 45.5 % (37.0-47.0); Hemoglobin 14.4 g/dl (12.0-16.0); Imm Gran Abs Auto 0.02 X10*3/uL (0.00-0.03); Imm Gran Pct Auto 0.3 % (0.0-0.4); Lymphocytes Absolute Auto 2.5 X10*3/uL (1.2-4.9); Lymphocytes Percent Auto 33.1 % (20-40); Mean Corpuscular HGB Conc 31.6 g/dl (31.0-35.0); Mean Corpuscular Hemoglobin 25.1 pg (27.0-33.0); Mean Corpuscular Volume 79.3 fL (80.0-98.0); Monocytes Absolute Auto 0.5 X10*3/uL (0.1-1.2); Monocytes Percent Auto 6.5 % (2-11); Neutrophils Absolute Auto 4.3 x10*3/uL (2.0-8.3); Neutrophils Percent Auto 57.8 % (45-73); Platelet Count 265 X10*3/uL (160-400); Red Blood Count 5.74 X10*6/uL (4.20-5.50); Red Cell Distribution Width 14.7 % (11.0-16.0); White Blood Count 7.5 X10*3/uL (4.8-10.8)
[2022-08-14 08:10] LABS: Estimated Average Glucose 186 mg/dL; Hemoglobin A1c % 8.1 %
[2022-08-14 08:11] LABS: Appearance Urine Clear; Color Urine Yellow; Glucose Urine UA >=1000 mg/dL (Negative); Leukocyte Esterase Urine Negative (Negative); Nitrite Urine Negative (Negative); PH 5.5 (5.0-9.0); Specific Gravity - Urine >= 1.030 (1.005-1.025); UMIC TRIGGER UACC YES; Urine Blood Negative (Negative); Urine Ketones Negative (Negative); Urine Protein Negative (Neg-Trace)
[2022-08-14 08:27] LABS: Alanine Aminotransferase 20 U/L (0-31); Albumin Level 4.4 g/dL (3.5-5.0); Alkaline Phosphatase 130 U/L (39-117); Anion Gap 15 (12-20); Aspartate Amino Transferase 20 U/L (5-31); Bilirubin Total 0.4 mg/dL (0.0-1.0); Blood Urea Nitrogen 14 mg/dL (9-16); Calcium 9.6 mg/dL (8.4-10.2); Carbon Dioxide 25 mmol/L (22-29); Chloride 103 mmol/L (96-108); Cholesterol 248 mg/dL; Estimated Glomerular Filt Rate > 60; Glucose Fasting 199 mg/dL (60-99); HDL Cholesterol 53 mg/dL; LDL Cholesterol Calculated 140 mg/dl; Potassium 4.7 mmol/L (3.3-5.1); Sodium 138 mmol/L (135-145); Total Protein 7.3 g/dL (6.5-8.0); Triglycerides 276 mg/dL
[2022-08-14 08:35] LABS: Creatinine Urine 63.19 mg/dL; Microalbum/Creatinine Ratio Ur 25.3 ug/mg cr
[2022-08-14 08:42] LABS: TSH reflex Free T4 1.93 uIU/mL (0.32-4.0)
[2022-08-14 08:48] LABS: Bacteria Urine None Seen (None Seen); Hyaline Casts Urine 0-2 /LPF (0-2); RBC Urine 0-2 /HPF (0-2); Squamous Epithelial Cell Urine 0-2 /HPF (0-2); WBC Urine 0-5 /HPF (0-5)
== END 2022-08-14 07:30 | disposition home or self-care (01) ==
LOC: HO.LAB 07:29
PROVIDERS: PCP Internal Medicine; Visit Provider Internal Medicine
DX: E11.9 Type 2 diabetes mellitus without complications (principal); E78.00 Pure hypercholesterolemia, unspecified; E55.9 Vitamin D deficiency, unspecified; I10 Essential (primary) hypertension
CPT/HCPCS: 36415; 80053; 80061; 81001; 81003; 82043; 82306; 83036; 84443; 85025

== ENCOUNTER 2022-10-06 16:01 | Outpatient (REF) | payer OTHER, SELFPAY ==
--- NOTE | ~2022-10-06 | MR_ITS ---
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 Evaluate for CVA, microvascular disease. COMPARISON: None TECHNIQUE: Multiplanar multisequence MR imaging of the brain was done without IV contrast. FINDINGS: Brain Volume: Within normal limits within the limitations of qualitative assessment. Structural: No malformations. Brain and Meninges: DWI sequence demonstrates no restricted diffusion to suggest acute or subacute cerebral ischemia. There are scattered small foci of FLAIR/T2 signal hyperintensity within the subcortical and deeper white matter of both cerebral hemispheres which are nonspecific findings. Gradient refocused imaging demonstrates no evidence for abnormal magnetic susceptibility artifact to suggest hemorrhage, hemosiderin staining or abnormal mineralization. Midline structures appear intact and unremarkable. No extra-axial fluid collections, space-occupying process or mass effect. Domínguez-white matter differentiation is well maintained. The cerebellum is intact. Ventricles and Subarachnoid Spaces: The ventricular system and subarachnoid spaces are within normal range. There is no hydrocephalus. Orbital Structures: The visualized orbital structures are grossly unremarkable within the limitations of the study. Vascular: Signal voids are noted in the visualized major intracranial vessels. Osseous Structures, Sinuses/Mastoids, Extracranial Soft Tissues: Unremarkable MR/MR head/brain wo con IMPRESSION: 1. Scattered nonspecific white matter T2 hyperintensities in both cerebral hemispheres. Differential diagnostic considerations include but are not limited to chronic ischemic microangiopathy and migraine-associated vasculopathy. 2. No evidence for acute or subacute cerebral ischemia, hemorrhage, extra-axial fluid collection, space-occupying process, mass effect or hydrocephalus.
== END 2022-10-06 16:02 | disposition home or self-care (01) ==
LOC: HO.MRI 16:01
PROVIDERS: Visit Provider Psychiatry & Neurology Neurology
DX: G11.9 Hereditary ataxia, unspecified (principal)
CPT/HCPCS: 70551

== ENCOUNTER 2022-11-21 07:20 | Outpatient (REF) | payer OTHER, SELFPAY ==
[2022-11-21 07:36] LABS: MANUAL DIFF FLAG NO
[2022-11-21 08:37] LABS: Appearance Urine Clear; Color Urine Yellow; Glucose Urine UA Negative (Negative); Leukocyte Esterase Urine Trace (Negative); Nitrite Urine Negative (Negative); UMIC TRIGGER UACC YES; Urine Blood Negative (Negative); Urine Ketones Negative (Negative); Urine Protein Negative (Neg-Trace)
[2022-11-21 08:37] LABS: Basophils Percent Auto 0.4 % (0-2); Eosinophils Absolute Auto 0.1 X10*3/uL (0.0-0.4); Eosinophils Percent Auto 1.1 % (0-4); Hematocrit 42.1 % (37.0-47.0); Hemoglobin 13.3 g/dl (12.0-16.0); Imm Gran Abs Auto 0.03 X10*3/uL (0.00-0.03); Imm Gran Pct Auto 0.4 % (0.0-0.4); Lymphocytes Absolute Auto 1.6 X10*3/uL (1.2-4.9); Lymphocytes Percent Auto 21.5 % (20-40); Mean Corpuscular HGB Conc 31.6 g/dl (31.0-35.0); Mean Corpuscular Hemoglobin 25.2 pg (27.0-33.0); Mean Corpuscular Volume 79.7 fL (80.0-98.0); Mean Platelet Volume 10.4 fL (9.4-12.3); Monocytes Absolute Auto 0.6 X10*3/uL (0.1-1.2); Monocytes Percent Auto 7.5 % (2-11); Neutrophils Absolute Auto 5.1 x10*3/uL (2.0-8.3); Neutrophils Percent Auto 69.1 % (45-73); Platelet Count 226 X10*3/uL (160-400); Red Blood Count 5.28 X10*6/uL (4.20-5.50); Red Cell Distribution Width 14.8 % (11.0-16.0); White Blood Count 7.3 X10*3/uL (4.8-10.8)
[2022-11-21 08:41] LABS: Bacteria Urine Trace (None Seen); Hyaline Casts Urine 0-2 /LPF (0-2); RBC Urine 0-2 /HPF (0-2); Squamous Epithelial Cell Urine 0-2 /HPF (0-2); WBC Urine 0-5 /HPF (0-5)
[2022-11-21 08:56] LABS: Estimated Average Glucose 200 mg/dL; Hemoglobin A1c % 8.6 %
[2022-11-21 09:07] LABS: Alanine Aminotransferase 20 U/L (0-31); Albumin Level 4.1 g/dL (3.5-5.0); Alkaline Phosphatase 127 U/L (39-117); Anion Gap 13 (12-20); Aspartate Amino Transferase 22 U/L (5-31); Bilirubin Total 0.9 mg/dL (0.0-1.0); Blood Urea Nitrogen 13 mg/dL (9-16); Calcium 9.6 mg/dL (8.4-10.2); Carbon Dioxide 28 mmol/L (22-29); Chloride 102 mmol/L (96-108); Cholesterol 157 mg/dL; Estimated Glomerular Filt Rate > 60; Glucose Fasting 205 mg/dL (60-99); HDL Cholesterol 60 mg/dL; LDL Cholesterol Calculated 70 mg/dl; Potassium 4.1 mmol/L (3.3-5.1); Sodium 139 mmol/L (135-145); Total Protein 6.9 g/dL (6.5-8.0); Triglycerides 139 mg/dL
[2022-11-21 09:27] LABS: TSH reflex Free T4 1.93 uIU/mL (0.32-4.0)
[2022-11-21 09:40] LABS: Creatinine Urine 126.72 mg/dL; Microalbum/Creatinine Ratio Ur 18.9 ug/mg cr
== END 2022-11-21 07:21 | disposition home or self-care (01) ==
LOC: HO.LAB 07:20
PROVIDERS: PCP Internal Medicine; Visit Provider Internal Medicine
DX: E78.00 Pure hypercholesterolemia, unspecified (principal); E11.9 Type 2 diabetes mellitus without complications; I10 Essential (primary) hypertension; R30.0 Dysuria
CPT/HCPCS: 36415; 80053; 80061; 81001; 82043; 83036; 84443; 85025

== ENCOUNTER → 2022-12-11 10:55 | Outpatient (BNVA) | payer OTHER, SELFPAY | PROVIDERS: PCP Internal Medicine; Visit Provider Internal Medicine Endocrinology, Diabetes & Metabolism | DX: E11.65 Type 2 diabetes mellitus with hyperglycemia (principal); Z79.4 Long term (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; Z79.84 Long term (current) use of oral hypoglycemic drugs | CPT/HCPCS: 82947; 99212 ==

== ENCOUNTER 2023-02-26 11:53 | Outpatient (REF) | payer OTHER, SELFPAY ==
[2023-02-26 12:15] LABS: MANUAL DIFF FLAG NO
[2023-02-26 12:25] LABS: Basophils Absolute Auto 0.1 X10*3/uL (0.0-0.2); Basophils Percent Auto 0.5 % (0-2); Eosinophils Absolute Auto 0.1 X10*3/uL (0.0-0.4); Eosinophils Percent Auto 1.1 % (0-4); Hematocrit 44.5 % (37.0-47.0); Hemoglobin 14.3 g/dl (12.0-16.0); Imm Gran Abs Auto 0.06 X10*3/uL (0.00-0.03); Imm Gran Pct Auto 0.6 % (0.0-0.4); Lymphocytes Absolute Auto 3.7 X10*3/uL (1.2-4.9); Lymphocytes Percent Auto 35.2 % (20-40); Mean Corpuscular HGB Conc 32.1 g/dl (31.0-35.0); Mean Corpuscular Hemoglobin 25.4 pg (27.0-33.0); Mean Corpuscular Volume 79.2 fL (80.0-98.0); Mean Platelet Volume 10.2 fL (9.4-12.3); Monocytes Absolute Auto 0.7 X10*3/uL (0.1-1.2); Monocytes Percent Auto 6.4 % (2-11); Neutrophils Percent Auto 56.2 % (45-73); Platelet Count 270 X10*3/uL (160-400); Red Blood Count 5.62 X10*6/uL (4.20-5.50); White Blood Count 10.6 X10*3/uL (4.8-10.8)
[2023-02-26 12:40] LABS: Estimated Average Glucose 209 mg/dL; Hemoglobin A1c % 8.9 %
[2023-02-26 12:54] LABS: Appearance Urine Clear; Color Urine Yellow; Glucose Urine UA >=1000 mg/dL (Negative); Leukocyte Esterase Urine Negative (Negative); Nitrite Urine Negative (Negative); Specific Gravity - Urine 1.015 (1.005-1.025); UMIC TRIGGER UACC YES; Urine Blood Negative (Negative); Urine Ketones Trace mg/dL (Negative); Urine Protein Negative (Neg-Trace)
[2023-02-26 12:59] LABS: Alanine Aminotransferase 27 U/L (0-31); Albumin Level 4.3 g/dL (3.5-5.0); Alkaline Phosphatase 135 U/L (39-117); Anion Gap 15 (12-20); Aspartate Amino Transferase 28 U/L (5-31); Bilirubin Total 0.6 mg/dL (0.0-1.0); Blood Urea Nitrogen 13 mg/dL (9-16); Calcium 9.7 mg/dL (8.4-10.2); Carbon Dioxide 27 mmol/L (22-29); Chloride 100 mmol/L (96-108); Cholesterol 194 mg/dL; Estimated Glomerular Filt Rate > 60; Glucose Fasting 197 mg/dL (60-99); HDL Cholesterol 63 mg/dL; LDL Cholesterol Calculated 100 mg/dl; Potassium 4.5 mmol/L (3.3-5.1); Sodium 137 mmol/L (135-145); Total Protein 6.9 g/dL (6.5-8.0); Triglycerides 158 mg/dL
[2023-02-26 13:06] LABS: Bacteria Urine None Seen (None Seen); Hyaline Casts Urine 0-2 /LPF (0-2); RBC Urine 0-2 /HPF (0-2); Squamous Epithelial Cell Urine 0-2 /HPF (0-2); WBC Urine 0-5 /HPF (0-5)
[2023-02-26 13:21] LABS: Creatinine Urine 68.79 mg/dL; Microalbum/Creatinine Ratio Ur 18.8 ug/mg cr
[2023-02-26 13:33] LABS: Folate 13.4 ng/mL (> or = 4.0); TSH reflex Free T4 1.75 uIU/mL (0.32-4.0); Vitamin B12 491 pg/mL (200-900); Vitamin D 25-OH Total 38.8 ng/mL (>30)
== END 2023-02-26 11:54 | disposition home or self-care (01) ==
LOC: HO.LAB 11:53
PROVIDERS: PCP Internal Medicine; Visit Provider Internal Medicine
DX: E78.00 Pure hypercholesterolemia, unspecified (principal); E55.9 Vitamin D deficiency, unspecified; I10 Essential (primary) hypertension; E11.9 Type 2 diabetes mellitus without complications; E53.8 Deficiency of other specified B group vitamins; R30.0 Dysuria
CPT/HCPCS: 36415; 80053; 80061; 81001; 82043; 82306; 82607; 82746; 83036; 84443; 85025

== ENCOUNTER → 2023-03-06 10:57 | Outpatient (BNVA) | payer OTHER, SELFPAY | PROVIDERS: PCP Internal Medicine; Visit Provider Dietitian, Registered | DX: E11.9 Type 2 diabetes mellitus without complications (principal); Z79.4 Long term (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 | CPT/HCPCS: 97802 ==

== ENCOUNTER → 2023-03-17 14:29 | Outpatient (BNVA) | payer OTHER, SELFPAY | PROVIDERS: PCP Internal Medicine; Visit Provider Internal Medicine Endocrinology, Diabetes & Metabolism | DX: E11.65 Type 2 diabetes mellitus with hyperglycemia (principal); E11.21 Type 2 diabetes mellitus with diabetic nephropathy; Z79.4 Long term (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 | CPT/HCPCS: 82947; 96372; 99212; J1815 ==

== ENCOUNTER 2023-04-22 10:41 | Outpatient (REF) | payer OTHER, SELFPAY ==
--- NOTE | ~2023-04-22 | MM_ITS ---
EXAMINATION: MM SCREENING DIGITAL BREAST TOMOSYNTHESIS, BILATERAL CLINICAL INFORMATION: Screening. Asymptomatic. The lifetime risk of breast cancer based on the Tyrer-Cuzick Model is 9%. COMPARISON: Mammography: 09/03/2020, 03/22/2018, 12/31/2016 TECHNIQUE: Digital breast tomosynthesis is performed in both the craniocaudal and mediolateral oblique views along with computer-aided detection (CAD). Synthesized 2D images are generated from the tomosynthesis. FINDINGS: There are scattered areas of fibroglandular density (ACR BI-RADS breast composition Category b). Breast tissue composition borders on predominantly fatty. Background stromal and fibroglandular densities are similar to prior studies and there is no developing density or architectural abnormality. No significant changes. There are no significant masses, abnormal calcifications, or other abnormalities. The axilla and skin contours are unremarkable. MM/MM tomosynthesis screening BI IMPRESSION: No mammographic evidence of malignancy. ASSESSMENT: BI-RADS 1: Negative RECOMMENDATION: Routine annual mammography screening. This patient's information was entered into a reminder system with a target due date for their next mammogram.
--- NOTE | ~2023-04-22 | MM_ITS ---
EXAMINATION: BONE DENSITOMETRY CLINICAL INDICATION: Asymptomatic menopausal state. COMPARISON: None (current study represents initial baseline exam). TECHNIQUE: Using a [employer] DXA System (software version: 13.1) manufactured by [employer], dual-energy x-ray absorptiometry was performed of the lumbar spine and left hip. The images are of good technical quality. Summary results are attached. FINDINGS: AP SPINE L1-L4: BMD 1.104 g/cm2, Z-score -0.6, T-score -0.6, normal. LEFT FEMUR, NECK: BMD 0.844 g/cm2, Z-score -0.9, T-score -1.4, osteopenia. LEFT FEMUR, TOTAL: BMD 0.950 g/cm2, Z-score -0.4, T-score -0.5, normal. IDENTIFIED RISK FACTORS: Rheumatoid arthritis. Osteoporosis. Recurrent falls. Height loss. Menopause. Chronic glucocorticoids. HISTORY OF FRACTURE: None listed. MEDICATIONS: Vitamin D. MM/XR DEXA axial skeleton IMPRESSION: 1. DIAGNOSIS: Osteopenia based on the lowest T-score value of -1.4 in the femoral neck applying World Health Organization criteria. 2. 10-YEAR FRACTURE RISK PREDICTION, FRAX: Major osteoporotic fracture (clinical spine, forearm, hip or shoulder) 7.9%. Hip fracture 0.7%. 3. Treatment Recommendations: NOF guidelines recommend consideration for treatment in postmenopausal women and men age 50 and older presenting with the following: -A hip or vertebral (clinical or morphometric) fracture. -T-score less than or equal to -2.5 at the femoral neck or spine after appropriate evaluation to exclude secondary causes. -Low bone mass at the hip or spine and a 10-year fracture probability by FRAX of greater than or equal to 3% for hip fracture or greater than or equal to 20% for major osteoporotic fracture based on the [place] adapted WHO algorithm. 4. Other Recommendations: All treatment decisions require clinical judgment and consideration of individual patient factors, including patient preferences, comorbidities, previous drug use, risk factors not captured in the FRAX model (e.g. frailty, falls, vitamin D deficiency, increased bone turnover, interval significant decline in bone density) and possible under or overestimation of fracture risk by FRAX. Additional medical evaluation for secondary cause of low bone mineral density may be appropriate. FUTURE SCAN RECOMMENDATION: People with diagnosed cases of osteoporosis or at high risk for fracture should have regular bone mineral density tests. For patients eligible for Medicare, routine testing is allowed once every 2 years. The testing frequency can be increased to one year for patients who have rapidly progressing disease, those who are receiving or discontinuing medical therapy to restore bone mass, or have additional risk factors.
== END 2023-04-22 10:42 | disposition home or self-care (01) ==
LOC: HO.MAMMO 10:41
PROVIDERS: PCP Internal Medicine; Visit Provider Internal Medicine
DX: Z12.31 Encounter for screening mammogram for malignant neoplasm of breast (principal); Z13.820 Encounter for screening for osteoporosis; Z78.0 Asymptomatic menopausal state
CPT/HCPCS: 77063; 77067; 77080

== ENCOUNTER 2023-06-08 12:42 | Outpatient (REF) | payer OTHER, SELFPAY ==
[2023-06-08 12:55] LABS: MANUAL DIFF FLAG NO
[2023-06-08 14:08] LABS: Basophils Percent Auto 0.4 % (0-2); Eosinophils Absolute Auto 0.1 X10*3/uL (0.0-0.4); Hematocrit 42.7 % (37.0-47.0); Hemoglobin 13.6 g/dl (12.0-16.0); Imm Gran Abs Auto 0.03 X10*3/uL (0.00-0.03); Imm Gran Pct Auto 0.3 % (0.0-0.4); Lymphocytes Percent Auto 31.8 % (20-40); Mean Corpuscular HGB Conc 31.9 g/dl (31.0-35.0); Mean Corpuscular Hemoglobin 25.7 pg (27.0-33.0); Mean Corpuscular Volume 80.7 fL (80.0-98.0); Mean Platelet Volume 10.6 fL (9.4-12.3); Monocytes Absolute Auto 0.6 X10*3/uL (0.1-1.2); Neutrophils Absolute Auto 5.7 x10*3/uL (2.0-8.3); Neutrophils Percent Auto 60.5 % (45-73); Platelet Count 248 X10*3/uL (160-400); Red Blood Count 5.29 X10*6/uL (4.20-5.50); Red Cell Distribution Width 14.8 % (11.0-16.0); White Blood Count 9.4 X10*3/uL (4.8-10.8)
[2023-06-08 14:47] LABS: Appearance Urine Turbid; Color Urine Dark Yellow; Glucose Urine UA 100 mg/dL (Negative); Leukocyte Esterase Urine Small (1+) (Negative); Nitrite Urine Negative (Negative); PH 5.5 (5.0-9.0); Specific Gravity - Urine >= 1.030 (1.005-1.025); UMIC TRIGGER UACC YES; Urine Blood Negative (Negative); Urine Ketones 15 mg/dL (Negative); Urine Protein 30 (1+) mg/dL (Neg-Trace)
[2023-06-08 14:52] LABS: Estimated Average Glucose 189 mg/dL; Hemoglobin A1c % 8.2 %
[2023-06-08 14:58] LABS: Alanine Aminotransferase 21 U/L (0-31); Albumin Level 4.1 g/dL (3.5-5.0); Alkaline Phosphatase 111 U/L (39-117); Anion Gap 17 (12-20); Aspartate Amino Transferase 22 U/L (5-31); Bilirubin Total 0.6 mg/dL (0.0-1.0); Blood Urea Nitrogen 11 mg/dL (9-16); Calcium 9.8 mg/dL (8.4-10.2); Carbon Dioxide 24 mmol/L (22-29); Chloride 106 mmol/L (96-108); Cholesterol 133 mg/dL; Estimated Glomerular Filt Rate > 60; Glucose Fasting 172 mg/dL (60-99); HDL Cholesterol 48 mg/dL; LDL Cholesterol Calculated 55 mg/dl; Sodium 143 mmol/L (135-145); Total Protein 7.3 g/dL (6.5-8.0); Triglycerides 154 mg/dL
[2023-06-08 14:59] LABS: Bacteria Urine 3+ (None Seen); UACC Culture Trigger YES; WBC Urine 0-5 /HPF (0-5)
[2023-06-08 15:19] LABS: TSH reflex Free T4 0.92 uIU/mL (0.32-4.0); Vitamin D 25-OH Total 50.1 ng/mL (>30)
[2023-06-08 16:49] LABS: Microalbum/Creatinine Ratio Ur 16.1 ug/mg cr
== END 2023-06-08 12:43 | disposition home or self-care (01) ==
LOC: HO.LAB 12:42
PROVIDERS: PCP Internal Medicine; Visit Provider Internal Medicine
DX: E55.9 Vitamin D deficiency, unspecified (principal); E11.9 Type 2 diabetes mellitus without complications; I10 Essential (primary) hypertension; E78.00 Pure hypercholesterolemia, unspecified; R30.0 Dysuria
CPT/HCPCS: 36415; 80053; 80061; 81001; 82043; 82306; 83036; 84443; 85025; 87086

== ENCOUNTER 2023-06-10 14:44 | Outpatient (AMB) | payer OTHER, SELFPAY ==
--- NOTE | 2023-06-10 15:06 | MHC.PC.OV ---
Vital Signs 06/10/23 15:08 Height 5 ft 5 in Weight 226 lb BMI 37.6 BP 126/70 Blood Pressure Location Lt brachial Position Sitting Pulse 76 Pulse Source Pulse Oximeter Pulse Oximetry (%) 96 Oxygen Delivery Method Room Air Intake Visit Reasons: hyperlipidemia, DM Intake Note: Patient is here to follow up on Hyperlipidemia, DM. Publication Manager Required: Yes Publication Manager Language: Swedish Patrol Mother: Not Required per policy Accompanied by: Self / Same As Patient Allergies egg [EGG] Allergy (Intermediate, Verified 06/10/23 15:28) VOMITING oxycodone [OXYCODONE] Allergy (Intermediate, Verified 06/10/23 15:28) NAUSEA/NIGHTMARES Penicillins [PCN] Allergy (Intermediate, Verified 06/10/23 15:28) RASH tramadol [TRAMADOL] Allergy (Intermediate, Verified 06/10/23 15:28) ITCHING acetaminophen [Percocet] Allergy (Unknown, Verified 06/10/23 15:28) none codeine Allergy (Unknown, Verified 06/10/23 15:28) nightmares Medication List - Last Reconciled 06/10/23 by Dwayne Stone MD acetaminophen 500 mg PO Q6H PRN 30 days albuterol sulfate 2.5 mg (3 mL) continuous nebulization QID PRN 30 days albuterol sulfate 90 mcg/actuation 2 puffs inhalation Q6-8H PRN 90 days aspirin 1 tab PO DAILY 90 days atorvastatin 40 mg PO BEDTIME 90 days blood sugar diagnostic (OneTouch Ultra Test strips) 3 times a day blood-glucose meter (OneTouch Ultra2 Meter kit) As directed 3x/day bupropion HCl 150 mg PO DAILY PRN buspirone 10 mg PO BID cholecalciferol (vitamin D3) (Vitamin D3) 50 mcg PO DAILY clotrimazole-betamethasone 1-0.05 % 1 appl topical BID 7 days cyclobenzaprine 10 mg PO Q8H PRN 10 days diclofenac sodium 1% 2 grams transdermal TID PRN 90 days duloxetine 60 mg PO DAILY 90 days empagliflozin (Jardiance) 25 mg PO QAM flash glucose scanning reader ([employer]Style [place] 2 [place]) As directed flash glucose sensor (FreeStyle [place] 2 Sensor kit) As directed change every 14 days fluconazole 150 mg PO Q3D 2 doses fluticasone propionate 50 mcg/actuation 1 spray intranasal DAILY hydrocortisone 2.5% 1 appl topical BID PRN insulin glargine 22 units (0.22 mL) subcut DAILY 30 days lancets ([employer] Delica Plus Lancet) As directed lidocaine 5% 1 appl topical TID PRN 15 days [LIGHTWEIGHT WALKER As directed] lisinopril 5 mg PO DAILY 90 days metformin 1,000 mg PO BID 90 days miconazole nitrate 2% 1 appl topical BID montelukast 10 mg PO QPM 90 days [NEBULIZER and all related supplies As directed] nystatin 1 appl topical BID 10 days omeprazole 20 mg PO DAILY 90 days [ONE TOUCH ULTRA LANCETS TEST 3 TIMES DAILY] [ONE TOUCH ULTRA TEST STRIPS TEST 3 TIMES DAILY] pen needle, diabetic (BD Pippa 2nd Gen Pen Needle) once a day pregabalin 50 mg PO BID 30 days sennosides (Senna Lax) 8.6 mg PO BEDTIME PRN 30 days sertraline 100 mg PO DAILY terconazole 0.4% 5 grams vaginal BEDTIME 7 days tirzepatide (Mounjaro) 2.5 mg (0.5 mL) subcut QWEEK 4 weeks tizanidine 4 mg PO BEDTIME PRN 30 days Tobacco use date assessed: 06/10/23 Dental Screening Dental Screen Date: 06/10/23 Did you have a dental visit in the last 12 months?: Yes Did you have a dental problem in the last 6 months where you did not have access to dental care?: No Was dental information given to patient?: Patient has dentist HPI hyperlipidemia, DM HPI Details Patient comes in today for her follow up visit States that she feels okay and has been able to lose a lot of weight since her last visit She denies any headaches or dizziness Denies any chest pains, no SOB No nausea/vomiting, no abdominal pain No change in bowel habits noted Needs a few of her Rx refilled Had her follow up labs done a couple of days ago - to discuss her results FOR[facility]LY [facility], [facility] Medical History Allergic rhinitis Anxiety Arthritis Asthma Benign essential hypertension Candidal intertrigo Constipation Contusion of left knee, sequela Depression Diabetes mellitus Diabetes type 2, uncontrolled Diabetic acidosis, type I Diabetic nephropathy associated with type 2 diabetes mellitus Dyslipidemia Fibromyalgia Fibromyalgia GERD without esophagitis Hypertension Insomnia Iron deficiency [facility] (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 Memory impairment Meniere's disease Muscle strain of right shoulder region Obesity Obesity (BMI 30-39.9) Osteoarthrosis Primary osteoarthritis of left knee Pure hypercholesterolemia Vitamin D deficiency Surgical History History of loop electrical excision procedure (LEEP) Hx of hernia repair Family History Father Diabetes Mother No problems noted. Maternal Grandmother Breast cancer Social History Housing: Apartment Alcohol intake: never Patient Tobacco Use Status: Never used Tobacco e-Cigarette/Vaping Use: Never Used Second Hand Smoke Exposure: Yes service: No Current occupational status: disabled Cognitive needs: No Hearing needs: No Vision needs: Yes Female Reproductive History Menstrual Age of Menarche: 10 Questionnaire Thrive Questionnaire Date Thrive assessed: 03/03/23 RACHAEL-7 AMB Questionnaire RACHAEL-7 Date RACHAEL - 7 assessed: 03/03/23 Source: Developed by Drs. Kory Jerez, Nina Minaya, Basilio Peterson and colleagues, with an educational sheldon from [employer]. Review of Systems Const Reports difficulty sleeping, Reports fatigue, Denies fever(s) and Denies headache(s) ENT Denies dysphagia, Reports dizziness (on and off), Denies otalgia, Denies headache(s), Denies nasal congestion, Denies neck pain, Denies odynophagia, Denies sinus pain and Denies sore throat Card Denies chest pain, Denies rapid heart rate, Denies irregular heart rhythm, Denies palpitations and Denies dyspnea Resp Denies chest congestion, Denies cough, Denies dyspnea and Denies wheezing GI Denies abdominal pain, Denies constipation, Denies dysphagia, Denies heartburn, Denies diarrhea, Denies nausea, Denies odynophagia and Denies vomiting Denies hematuria, Denies dysuria and Denies urinary incontinence Musc Details: (+) pain and bruising over the left elbow Reports abnormal gait (unsteady), Reports back pain (over the lower back), Reports myalgias (diffuse), Reports arthralgias (multiple joints, especially over her left knee and around right shoulder) and Denies neck pain Skin/Breast Denies rash Neuro Reports abnormal gait (unsteady), Reports dizziness (on and off) and Denies headache(s) Endo Reports fatigue and Denies palpitations Aller/Immun Denies wheezing Physical exam (Primary Care) Vital Signs: Last Vital Signs Pulse 76 06/10/23 15:08 BP 126/70 06/10/23 15:08 Pulse Ox 96 06/10/23 15:08 Oxygen Delivery Method Room Air 06/10/23 15:08 BMI result Body Mass Index 37.6 Tobacco/Smoking Status: Tobacco use Status Tobacco use date assessed 06/10/23 06/10/23 15:12 Patient Tobacco Use Status Never used Tobacco 06/10/23 15:06 e-Cigarette/Vaping Use Never Used 06/10/23 15:06 Thrive Assessment: Date of Thrive Assessment Date Thrive assessed 03/03/23 06/10/23 15:06 Const General: no acute distress and alert HENMT Ears: TM's normal bilaterally and EAC's normal Throat: Yes posterior oropharynx normal and Yes tonsils normal (no TP congestion noted) Neck Neck: Yes no lymphadenopathy and Yes supple Thyroid: Thyroid normal Resp Auscultation: clear to auscultation bilaterally, no rales and no wheezes Cardio Rate: regular rate Rhythm: regular rhythm Heart sounds: no murmurs GI Palpation (GI): Soft to palpation and nontender Auscultation: normal bowel sounds General: Yes no CVA tenderness Back/Spine/Pelvis Back: no CVA tenderness Thoracic/Lumbar Spine: paraspinal muscle tenderness bilaterally in the lower thoracic, in the upper lumbar, in the mid lumbar and in the lower lumbar and lumbar spinal tenderness Skin Rashes: no rashes Extrem General: Yes no clubbing, cyanosis or edema Right upper extremity: shoulder/upper arm Details: tenderness Location: of the A-C joint and of the scapula; no swelling Left upper extremity: elbow/forearm Details: tenderness (with some bruising noted over the left elbow) and swelling (mild) Location: of the olecranon Right lower extremity: knee Details: tenderness Results Reviewed Results Reviewed: Laboratory Tests 06/08/23 06/08/23 06/08/23 12:53 12:53 12:54 WBC 9.4 Hgb 13.6 Hct 42.7 Plt Count 248 Sodium Potassium Creatinine Estimated GFR Fasting Glucose Hemoglobin A1c % Calcium AST ALT Triglycerides Cholesterol LDL Cholesterol, Calc HDL Cholesterol 25-OH Vitamin D Total TSH Urine pH 5.5 Ur Specific [place] >= 1.030 H Urine Protein 30 (1+) H Urine Glucose (UA) 100 H Microalb/Creat Ratio 16.1 06/08/23 06/08/23 12:54 12:54 WBC Hgb Hct Plt Count Sodium 143 Potassium 4.0 Creatinine 0.76 Estimated GFR > 60 Fasting Glucose 172 H Hemoglobin A1c % 8.2 Calcium 9.8 AST 22 ALT 21 Triglycerides 154 Cholesterol 133 LDL Cholesterol, Calc 55 HDL Cholesterol 48 25-OH Vitamin D Total 50.1 TSH 0.92 Urine pH Ur Specific [place] Urine Protein Urine Glucose (UA) Microalb/Creat Ratio Assessment and Plan Assessment & Plan (1) Diabetes mellitus: Code(s): E11.9 - Type 2 diabetes mellitus without complications Qualifiers: Diabetes mellitus complication status: without complication Diabetes 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 care insulin use: with senior care use Diabetes mellitus type: type 2 Qualified Code(s): E11.9 - Type 2 diabetes mellitus without complications; Z79.4 - intermediate card tender (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 Plan: HgbA1c has improved to 8.2% on her labs done a couple of days ago (was at 8.9% a few months before) - goal is HgbA1c of <7.0% Reinforced diabetic diet Continue Lantus Solostar 22 units subcutaneous once a day at bedtime, Metformin 1000 mg twice a day, Jardiance 25 mg QD and Januvia 100 mg QD Follow up with endocrinology as scheduled - is now seeing Dr. Otero Is also seeing systems analyst engineer regularly for dietary counseling and teaching - to continue as scheduled (2) Pure hypercholesterolemia: Code(s): E78.00 - Pure hypercholesterolemia, unspecified Plan: Results of her labs done a couple of days ago reviewed and discussed with patient - lipids have improved significantly from previous Reinforced low cholesterol diet Continue Atorvastatin 40 mg QD Will recheck her labs in 3 months for follow-up (3) Benign essential hypertension: Code(s): I10 - Essential (primary) hypertension Plan: Reinforced low sodium diet - goal is systolic BP of at least 120 to 130 mm or less Continue Lisinopril 5 mg QD (4) Dizziness: Code(s): R42 - Dizziness and giddiness Plan: States that she still experiences frequent dizziness - (+) Hx of Meniere's disease Was seen by neurology in September 2022 and diagnosed with cerebellar ataxia MRI of the brain done a few months ago (September 2022) revealed (+) scattered nonspecific white matter T2 hyperintensities in both cerebral hemispheres with no evidence for acute or subacute cerebral ischemia, hemorrhage, extra-axial fluid collection, space-occupying process, mass effect or hydrocephalus Follow up with neurology as scheduled (5) GERD without esophagitis: Code(s): K21.9 - Gastro-esophageal reflux disease without esophagitis Plan: Dietary restrictions reinforced Continue Omeprazole 20 mg QD (6) Osteoarthrosis: Code(s): M19.90 - Unspecified osteoarthritis, unspecified site Qualifiers: Osteoarthritis location: unspecified site Osteoarthritis type: primary Qualified Code(s): M19.91 - Primary osteoarthritis, unspecified site Plan: X-rays of both hands done a couple of years ago showed mild OA changes in the right hand; left hand x-rays were normal except for an old metacarpal fracture that has since healed Follow-up with Orthopedics and Rheumatology as scheduled - has been diagnosed with polyarthralgia by Rheumatology Encouraged again on regular hand exercises to help minimize her hand stiffness and pain Continue Tramadol 50 mg TID PRN and Tylenol Arthritis 650 mg 3 times a day as needed, Piroxicam 10 mg once a day with food as needed and Diclofenac 1% topical Gel TID PRN (7) Primary osteoarthritis of left knee: Code(s): M17.12 - Unilateral primary osteoarthritis, left knee Plan: X-rays of the left knee done a few months ago revealed (+) moderate degenerative changes Consider orthopedic referral if knee pain gets worse (8) Allergic rhinitis: Code(s): J30.9 - Allergic rhinitis, unspecified Qualifiers: Allergic rhinitis seasonality: unspecified Allergic rhinitis trigger: unspecified Qualified Code(s): J30.9 - Allergic rhinitis, unspecified Plan: Continue Montelukast 10 mg QD, Loratadine 10 mg QD PRN and Fluticasone 50 mcg nasal spray QD PRN (9) Vitamin D deficiency: Code(s): E55.9 - Vitamin D deficiency, unspecified Plan: Corrected - continue Vitamin D3 2000 units QD (10) Constipation: Code(s): K59.00 - Constipation, unspecified Qualifiers: Constipation type: unspecified constipation type Qualified Code(s): K59.00 - Constipation, unspecified Plan: Improved; reinforced increased oral fluids and dietary fiber Continue Senna 8.6 mg QD PRN (11) Fibromyalgia: Code(s): M79.7 - Fibromyalgia Plan: Encouraged again on regular exercise and physical activity to help manage her fibromyalgia symptoms Continue Duloxetine 60 mg once a day and Tizanidine 4 mg Q HS PRN Continue Pregabalin 50 mg BID - is tolerating Lyrica so far (was taken off Gabapentin previously as she was concerned that the medication was affecting her memory) (12) Frequent nocturnal awakening: Code(s): G47.00 - Insomnia, unspecified Plan: States that she has no trouble falling asleep, especially with her current sleep aids BUT still wakes up frequently in the middle of the night (multiple times and also sometimes on a daily basis) and finds herself gasping for air She has been referred to sleep medicine for further evaluation and management (possible issues with JENNIFER or at least, nocturnal hypoxemia) but she missed her appointment last month Was advised to call up the Sleep Medicine office and try to reschedule her appt with them MARTHA (13) Insomnia: Code(s): G47.00 - Insomnia, unspecified Qualifiers: Insomnia type: unspecified Qualified Code(s): G47.00 - Insomnia, unspecified Plan: Sleep hygiene reinforced Continue Trazodone 50 mg Q HS PRN (14) Anxiety: Code(s): F41.9 - Anxiety disorder, unspecified Plan: Continue Lorazepam 0.5 mg Q HS PRN and Hydroxyzine 25 mg 3 times a day as needed (15) Depression: Code(s): F32.9 - Major depressive disorder, single episode, unspecified Qualifiers: Depression Type: unspecified Qualified Code(s): F32.9 - Major depressive disorder, single episode, unspecified Plan: Continue Bupropion ER 300 mg once a day Follow-up with Psychiatry as scheduled (16) Obesity (BMI 30-39.9): Code(s): E66.9 - Obesity, unspecified Plan: Reinforced diet/exercise as tolerated/lose weight - has been able to lose about 16 pounds since her last visit Plan Follow up in 3 months Orders: Orders Complete Blood Count Auto Diff 3 Months I10 - Essential (primary) hypertension Comprehensive [place]. Panel Fast 3 Months E78.00 - Pure hypercholesterolemia, unspecified Lipid Panel 3 Months E78.00 - Pure hypercholesterolemia, unspecified Hemoglobin A1c 3 Months E11.9 - Type 2 diabetes mellitus without complications Microalbumin, Random (w Creat) 3 Months E11.9 - Type 2 diabetes mellitus without complications TSH reflex Free T4 3 Months E78.00 - Pure hypercholesterolemia, unspecified UA CC w/rflx Micro + Cult 3 Months R30.0 - Dysuria Vitamin D 25-OH Total 3 Months E55.9 - Vitamin D deficiency, unspecified Medications: Refilled terconazole 0.4% 5 grams vaginal BEDTIME 7 days 45 grams 4RF miconazole nitrate 2% apply to affected areas 1 appl topical BID 85 grams 3RF fluconazole may repeat second dose 72 hrs after first dose if symptoms persist 150 mg PO Q3D 2 doses 2 tabs 5RF cholecalciferol (vitamin D3) (Vitamin D3) 50 mcg PO DAILY 90 caps 1RF E55.9 - Vitamin D deficiency, unspecified Coding Level of Care Code Est Pt Level 4 (66875) Diagnoses Diabetes mellitus E11.9; Z79.4 Diabetes mellitus complication status: without complication 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: with laborer marine terminal use Diabetes mellitus type: type 2 Pure hypercholesterolemia E78.00 Benign essential hypertension I10 Dizziness R42 GERD without esophagitis K21.9 Osteoarthrosis M19.91 Osteoarthritis location: unspecified site Osteoarthritis type: primary Primary osteoarthritis of left knee M17.12 Allergic rhinitis J30.9 Allergic rhinitis seasonality: unspecified Allergic rhinitis trigger: unspecified Vitamin D deficiency E55.9 Constipation K59.00 Constipation type: unspecified constipation type Fibromyalgia M79.7 Frequent nocturnal awakening G47.00 Insomnia G47.00 Insomnia type: unspecified Anxiety F41.9 Depression F32.9 Depression Type: unspecified Obesity (BMI 30-39.9) E66.9
[2023-06-10 15:08] VITALS: BP 126/70; PULSE 76; O2SAT 96; BMI 37.6
== END 2023-06-10 15:46 | disposition home or self-care (01) ==
PROVIDERS: Visit Provider Internal Medicine
DX: E11.9 Type 2 diabetes mellitus without complications (principal); Z79.4 Long term (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; I10 Essential (primary) hypertension; K21.9 Gastro-esophageal reflux disease without esophagitis; E78.00 Pure hypercholesterolemia, unspecified; R42 Dizziness and giddiness; M19.91 Primary osteoarthritis, unspecified site; M17.12 Unilateral primary osteoarthritis, left knee; J30.9 Allergic rhinitis, unspecified; E55.9 Vitamin D deficiency, unspecified; K59.00 Constipation, unspecified; M79.7 Fibromyalgia
CPT/HCPCS: 99214

== ENCOUNTER 2023-06-17 13:56 | Outpatient (AMB) | payer OTHER, SELFPAY ==
[2023-06-17 13:57] VITALS: BP 122/72; PULSE 76; BMI 37.9
--- NOTE | 2023-06-17 13:57 | A.OFFVIS_ITS ---
Intake Vital Signs 06/17/23 13:57 Height 5 ft 5 in Weight 227 lb 8.273 oz BMI 37.9 BP 122/72 Blood Pressure Location Lt brachial Position Sitting Pulse 76 Pulse Source Palpation Intake Visit Reasons: f/u Type 2 DM Intake Note: Patient present today to follow up on Type Diabetes Mellitus. Last Diabetic Eye exam: Last Podiatry Visit: Random Glucose: 126mg/dl HgA1C: 8.1% Check Pilot Required: Yes Check Pilot Language: Emirati Accompanied by: Self / Same As Patient Allergies egg [EGG] Allergy (Intermediate, Verified 06/17/23 14:02) VOMITING oxycodone [OXYCODONE] Allergy (Intermediate, Verified 06/17/23 14:02) NAUSEA/NIGHTMARES Penicillins [PCN] Allergy (Intermediate, Verified 06/17/23 14:02) RASH tramadol [TRAMADOL] Allergy (Intermediate, Verified 06/17/23 14:02) ITCHING acetaminophen [Percocet] Allergy (Unknown, Verified 06/17/23 14:02) none codeine Allergy (Unknown, Verified 06/17/23 14:02) nightmares HPI HPI Comments History of Present Illness Details Patient is 57-year-old female with DM type 2 diagnosed in 1996 who presents for management of diabetes. . Past medical history: Diabetes type 2, hypertension, hyperlipidemia, asthma, GERD, anxiety, depression., fibromyalgia, arthritis Micro and macrovascular complications: Nephropathy Diabetes medications: Metformin 1000 mg twice a day Invokana 300 mg,Mounjaro 2.5 mg Qwkly, Lantus 22 units at bedtime. Intolerant of Trulicity and Ozempic due to gastric upset and pain. Blood glucose monitoring: Her glucometer download shows 6 glucometer readings 3 of which average glucose is 152 with range 121 to 195 Symptoms reported: denies numbness, cramping in lower extremities. Reports tingling in feet. Hypoglycemia: denies Hyperglycemia: + urinary frequency, + nocturia, + polydypsia Internet Marketing Strategist - CDE education: in the past Surgical Physician Assistant: denies Ophthalmology evaluation: needs to make appt -no retinopathy Other specialists: denies Laboratory Tests 06/11/21 09/25/21 10/01/21 13:35 13:01 14:35 Creatinine 0.80 Estimated GFR > 60 Hgb A1c (Clinic) 8.8 H Triglycerides 330 Cholesterol 281 D LDL Cholesterol, C alc 144 HDL Cholesterol 71 Microalb/Creat Rat io TNP PFSH Medical History Allergic rhinitis Anxiety Arthritis Asthma Benign essential hypertension Candidal intertrigo Constipation Contusion of left knee, sequela Depression Diabetes mellitus Diabetes type 2, uncontrolled Diabetic acidosis, type I Diabetic nephropathy associated with type 2 diabetes mellitus Dyslipidemia Fibromyalgia Fibromyalgia GERD without esophagitis Hypertension Insomnia Iron deficiency correction (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 Memory impairment Meniere's disease Muscle strain of right shoulder region Obesity Obesity (BMI 30-39.9) Osteoarthrosis Primary osteoarthritis of left knee Pure hypercholesterolemia Vitamin D deficiency Surgical History History of loop electrical excision procedure (LEEP) Hx of hernia repair Family History Father Diabetes Mother No problems noted. Maternal Grandmother Breast cancer Social History Housing: Apartment Alcohol intake: never Patient Tobacco Use Status: Never used Tobacco e-Cigarette/Vaping Use: Never Used Second Hand Smoke Exposure: Yes service: No Current occupational status: disabled Cognitive needs: No Hearing needs: No Vision needs: Yes Female Reproductive History Menstrual Age of Menarche: 10 Physical Exam Vital Signs: Last Vital Signs Pulse 76 06/17/23 13:57 BP 122/72 06/17/23 13:57 BMI result Body Mass Index 37.9 Absence of Cushingoid features. Absence of acromegalic features. Neck exam reveals nl size thyroid about 15 gms. No thyroid nodules palpable. No carotid bruits present. Lungs CTA. Heart S1 S2, Reg R/R. No M/R/ G. Skin exam reveals absence of vitiligo or acanthosis nigricans. Abdominal exam reveals Soft NT/ND with NA BS. No organomegaly present. Neck Other: . Extrem Other: Visual exam of foot performed. No ulcerations or open lesions. No onchomycosis, no callouses.Pulses 2 + distally Sensation intact to monofilament exam. Vibratory sensation sensed is intact with 128 Hz tuning fork Results AMB Hemoglobin A1c AMB Hemoglobin A1c 8.1 % Last Edit by Pina Delgadillo on 06/17/23 14:36 Results Reviewed Results Reviewed: 06/17/23 14:10 Glucose, Whole Blood Routine Laboratory Last Values Glucose (Clinic) 126 mg/dL (60-115) H 06/17/23 14:10 Hgb A1c (Clinic) 8.1 % (4.0-6.0) H 06/17/23 14:14 Assessment & Plan Assessment & Plan (1) Diabetes type 2, uncontrolled: Code(s): E11.65 - Type 2 diabetes mellitus with hyperglycemia Plan: This is a 57-year-old with history of type 2 diabetes being treated with metformin, Invokana, Januvia and basal insulin with poor glycemic control with reported microvascular complications CKD. Plan is that the patient check her point cares pre and post meals. I attempted to prescribe her Everett 2 again Patient has difficulty with dexterity in checking her point cares due to arthritis in the hands and would be a candidate for Everett. Will increase Mounjaro to 5 mg q.week and titrate as tolerated She was referred to our hospital educator . I also went over the correlation of poor glycemic control to development and progression of complications via converter skimmer. Orders: Orders AMB Hemoglobin A1c Today E11.9 - Type 2 diabetes mellitus without complications Referrals Diabetes Education Referral E11.65 - Type 2 diabetes mellitus with hyperglycemia Nutrition/Dietitian Referral E11.65 - Type 2 diabetes mellitus with hyperglycemia Medications: New tirzepatide (Mounjaro) 5 mg (0.5 mL) subcut QWEEK 2 mL 4RF Refilled flash glucose scanning reader (FreeStyle Everett 2 [place]) As directed 1 ea 0RF flash glucose sensor (FreeStyle Everett 2 Sensor kit) As directed change every 14 days 2 ea 0RF Discontinued tirzepatide (Mounjaro) Discontinued Reason: Doctor's Order 2.5 mg (0.5 mL) subcut QWEEK 4 weeks 2 mL 4RF Coding Level of Care Code Est Pt Level 4 (34170) Diagnoses Diabetes type 2, uncontrolled E11.65
[2023-06-17 14:15] LABS: Glucose, Whole Blood 126 mg/dL (60-115)
== END 2023-06-17 14:28 | disposition home or self-care (01) ==
PROVIDERS: PCP Internal Medicine; Visit Provider Internal Medicine Endocrinology, Diabetes & Metabolism
DX: E11.65 Type 2 diabetes mellitus with hyperglycemia (principal); E11.9 Type 2 diabetes mellitus without complications
CPT/HCPCS: 99214

== ENCOUNTER → 2023-06-17 13:56 | Outpatient (BNVA) | payer OTHER, SELFPAY | PROVIDERS: Visit Provider Internal Medicine Endocrinology, Diabetes & Metabolism | DX: E11.65 Type 2 diabetes mellitus with hyperglycemia (principal) | CPT/HCPCS: 82947; 83036; 99212 ==

== ENCOUNTER 2023-09-22 10:28 | Outpatient (AMB) | payer OTHER, SELFPAY ==
--- NOTE | 2023-09-22 10:29 | A.OFFVIS_ITS ---
Intake Vital Signs 09/22/23 10:30 Height 5 ft 5 in Weight 227 lb 11.8 oz BMI 37.9 BP 104/72 Blood Pressure Location Lt brachial Position Sitting Pulse 65 Pulse Source Pulse Oximeter Intake Visit Reasons: f/u Type 2 DM-CONFIRMED Intake Note: Patient present today to follow up on Type 2 Diabetes Mellitus. Patient receives DME supplies through: Pharmacy Last Diabetic Eye exam: 2020 Last Podiatry Visit:01/2023 Random Glucose: 119 mg/dl HgA1C: 7.8% Personal Security Specialist Required: No Personal Security Specialist Name: Arlene medical staff Information Interpreted: non-clinical & clinical Accompanied by: Self / Same As Patient Allergies egg [EGG] Allergy (Intermediate, Verified 06/17/23 14:02) VOMITING oxycodone [OXYCODONE] Allergy (Intermediate, Verified 06/17/23 14:02) NAUSEA/NIGHTMARES Penicillins [PCN] Allergy (Intermediate, Verified 06/17/23 14:02) RASH tramadol [TRAMADOL] Allergy (Intermediate, Verified 06/17/23 14:02) ITCHING acetaminophen [Percocet] Allergy (Unknown, Verified 06/17/23 14:02) none codeine Allergy (Unknown, Verified 06/17/23 14:02) nightmares Medication List - Last Reconciled 09/22/23 by Kory Otero MD acetaminophen 500 mg PO Q6H PRN 30 days albuterol sulfate 2.5 mg (3 mL) continuous nebulization QID PRN 30 days albuterol sulfate 90 mcg/actuation 2 puffs inhalation Q6-8H PRN 90 days aspirin 1 tab PO DAILY 90 days atorvastatin 40 mg PO BEDTIME 90 days blood sugar diagnostic (OneTouch Ultra Test strips) 3 times a day blood-glucose meter (OneTouch Ultra2 Meter kit) As directed 3x/day bupropion HCl 150 mg PO DAILY PRN buspirone 10 mg PO BID cholecalciferol (vitamin D3) (Vitamin D3) 50 mcg PO DAILY clotrimazole-betamethasone 1-0.05 % 1 appl topical BID 7 days cyclobenzaprine 10 mg PO Q8H PRN 10 days diclofenac sodium 1% 2 grams transdermal TID PRN 90 days duloxetine 60 mg PO DAILY 90 days empagliflozin (Jardiance) 25 mg PO QAM flash glucose scanning reader ([employer] Everett 2 [place]) As directed flash glucose sensor (FreeStyle Everett 2 Sensor kit) As directed change every 14 days fluconazole 150 mg PO Q3D 2 doses fluticasone propionate 50 mcg/actuation 1 spray intranasal DAILY hydrocortisone 2.5% 1 appl topical BID PRN insulin glargine 22 units (0.22 mL) subcut DAILY 30 days lancets (OneTouch Delica Plus Lancet) As directed lidocaine 5% 1 appl topical TID PRN 15 days [LIGHTWEIGHT WALKER As directed] lisinopril 5 mg PO DAILY 90 days metformin 1,000 mg PO BID 90 days miconazole nitrate 2% 1 appl topical BID montelukast 10 mg PO QPM 90 days [NEBULIZER and all related supplies As directed] nystatin 1 appl topical BID 10 days omeprazole 20 mg PO DAILY 90 days [ONE TOUCH ULTRA LANCETS TEST 3 TIMES DAILY] [ONE TOUCH ULTRA TEST STRIPS TEST 3 TIMES DAILY] pen needle, diabetic (BD Pippa 2nd Gen Pen Needle) once a day pregabalin 50 mg PO BID 30 days sennosides (Senna Lax) 8.6 mg PO BEDTIME PRN 30 days sertraline 100 mg PO DAILY terconazole 0.4% 5 grams vaginal BEDTIME 7 days tirzepatide (Mounjaro) 5 mg (0.5 mL) subcut QWEEK tizanidine 4 mg PO BEDTIME PRN 30 days HPI HPI Comments History of Present Illness Details Patient is 58-year-old female with DM type 2 diagnosed in 1996 who presents for management of diabetes. . Past medical history: Diabetes type 2, hypertension, hyperlipidemia, asthma, GERD, anxiety, depression., fibromyalgia, arthritis Micro and macrovascular complications: Nephropathy Diabetes medications: Metformin 1000 mg twice a day Invokana 300 mg,Mounjaro 5 mg Qwkly, Lantus 22 units at bedtime. Intolerant of Trulicity and Ozempic due to gastric upset and pain. Blood glucose monitoring: Her glucometer download shows no readings in glucometer Symptoms reported: denies numbness, cramping in lower extremities. Reports tingling in feet. Hypoglycemia: denies Hyperglycemia: + urinary frequency, + nocturia, + polydypsia Patient has not been checking her blood sugars with glucometer and with no readings in the glucometer Cloth Winder - CDE education: in the past Maternal Child Nurse: denies Ophthalmology evaluation: 1 1/2 yrs ago -has appt next wk -no retinopathy Other specialists: denies Laboratory Tests 06/11/21 09/25/21 10/01/21 13:35 13:01 14:35 Creatinine 0.80 Estimated GFR > 60 Hgb A1c (Clinic) 8.8 H Triglycerides 330 Cholesterol 281 D LDL Cholesterol, C alc 144 HDL Cholesterol 71 Microalb/Creat Rat io TNP [facility] Medical History Allergic rhinitis Anxiety Arthritis Asthma Benign essential hypertension Candidal intertrigo Constipation Contusion of left knee, sequela Depression Diabetes mellitus Diabetes type 2, uncontrolled Diabetic acidosis, type I Diabetic nephropathy associated with type 2 diabetes mellitus Dyslipidemia Fibromyalgia Fibromyalgia GERD without esophagitis Hypertension Insomnia Iron deficiency custodial (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 Memory impairment Meniere's disease Muscle strain of right shoulder region Obesity Obesity (BMI 30-39.9) Osteoarthrosis Primary osteoarthritis of left knee Pure hypercholesterolemia Vitamin D deficiency Surgical History History of loop electrical excision procedure (LEEP) Hx of hernia repair Family History Father Diabetes Mother No problems noted. Maternal Grandmother Breast cancer Social History Housing: Apartment Alcohol intake: never Patient Tobacco Use Status: Never used Tobacco e-Cigarette/Vaping Use: Never Used Second Hand Smoke Exposure: Yes service: No Current occupational status: disabled Cognitive needs: No Hearing needs: No Vision needs: Yes Female Reproductive History Menstrual Age of Menarche: 10 Physical Exam Vital Signs: Last Vital Signs Pulse 65 09/22/23 10:30 BP 104/72 09/22/23 10:30 BMI result Body Mass Index 37.9 Absence of Cushingoid features. Absence of acromegalic features. Neck exam reveals nl size thyroid about 15 gms. No thyroid nodules palpable. No carotid bruits present. Lungs CTA. Heart S1 S2, Reg R/R. No M/R/ G. Skin exam reveals absence of vitiligo or acanthosis nigricans. Abdominal exam reveals Soft NT/ND with NA BS. No organomegaly present. Neck Other: . Extrem Other: Visual exam of foot performed. No ulcerations or open lesions. No onchomycosis, no callouses.Pulses 2 + distally Sensation intact to monofilament exam. Vibratory sensation sensed is intact with 128 Hz tuning fork Results AMB Hemoglobin A1c AMB Hemoglobin A1c 7.8 % Last Edit by Pina Delgadillo on 09/22/23 10:48 Assessment & Plan Assessment & Plan (1) Diabetes type 2, uncontrolled: Code(s): E11.65 - Type 2 diabetes mellitus with hyperglycemia Plan: This is a 57-year-old with history of type 2 diabetes being treated with metformin, Invokana, Januvia and basal insulin with fair glycemic control with reported microvascular complications CKD. Plan is that the patient check her point cares pre and post meals. I attempted to prescribe her Everett 2 again Patient has difficulty with dexterity in checking her point cares due to arthritis in the hands and would be a candidate for Everett. She was again referred to our life educator . I also went over the correlation of poor glycemic control to development and progression of complications via balloon maker. If personal Everett is not approved , educator can place professional sensor Orders: Orders AMB Hemoglobin A1c Today E11.9 - Type 2 diabetes mellitus without complications Coding Level of Care Code Est Pt Level 4 (12197) Diagnoses Diabetes type 2, uncontrolled E11.65
[2023-09-22 10:30] VITALS: BP 104/72; PULSE 65; BMI 37.9
[2023-09-22 10:43] LABS: Glucose, Whole Blood 119 mg/dL (60-115)
== END 2023-09-22 10:52 | disposition home or self-care (01) ==
PROVIDERS: PCP Internal Medicine; Visit Provider Internal Medicine Endocrinology, Diabetes & Metabolism
DX: E11.9 Type 2 diabetes mellitus without complications (principal); E11.65 Type 2 diabetes mellitus with hyperglycemia
CPT/HCPCS: 99214

== ENCOUNTER → 2023-09-22 10:28 | Outpatient (BNVA) | payer OTHER, SELFPAY | PROVIDERS: PCP Internal Medicine; Visit Provider Internal Medicine Endocrinology, Diabetes & Metabolism | DX: E11.65 Type 2 diabetes mellitus with hyperglycemia (principal) | CPT/HCPCS: 82947; 83036; 99212 ==

== ENCOUNTER 2023-10-05 08:21 | Outpatient (REF) | payer OTHER, SELFPAY ==
[2023-10-05 08:46] LABS: MANUAL DIFF FLAG NO
[2023-10-05 09:18] LABS: Basophils Absolute Auto 0.1 X10*3/uL (0.0-0.2); Basophils Percent Auto 0.6 % (0-2); Eosinophils Absolute Auto 0.1 X10*3/uL (0.0-0.4); Eosinophils Percent Auto 1.5 % (0-4); Hematocrit 45.5 % (37.0-47.0); Hemoglobin 14.4 g/dl (12.0-16.0); Imm Gran Abs Auto 0.02 X10*3/uL (0.00-0.03); Imm Gran Pct Auto 0.3 % (0.0-0.4); Mean Corpuscular HGB Conc 31.6 g/dl (31.0-35.0); Mean Corpuscular Hemoglobin 25.4 pg (27.0-33.0); Mean Corpuscular Volume 80.1 fL (80.0-98.0); Mean Platelet Volume 10.4 fL (9.4-12.3); Monocytes Absolute Auto 0.5 X10*3/uL (0.1-1.2); Neutrophils Absolute Auto 4.3 x10*3/uL (2.0-8.3); Neutrophils Percent Auto 53.6 % (45-73); Platelet Count 252 X10*3/uL (160-400); Red Blood Count 5.68 X10*6/uL (4.20-5.50); Red Cell Distribution Width 14.3 % (11.0-16.0)
[2023-10-05 09:22] LABS: Estimated Average Glucose 163 mg/dL; Hemoglobin A1c % 7.3 % (<6.0)
[2023-10-05 10:05] LABS: Appearance Urine Clear; Color Urine Yellow; Glucose Urine UA >=1000 mg/dL (Negative); Leukocyte Esterase Urine Negative (Negative); Nitrite Urine Negative (Negative); PH 5.5 (5.0-9.0); Specific Gravity - Urine >= 1.030 (1.005-1.025); UMIC TRIGGER UACC YES; Urine Blood Negative (Negative); Urine Ketones Negative (Negative); Urine Protein Negative (Neg-Trace)
[2023-10-05 10:11] LABS: Bacteria Urine Trace (None Seen); Hyaline Casts Urine 0-2 /LPF (0-2); RBC Urine 0-2 /HPF (0-2); Squamous Epithelial Cell Urine 0-2 /HPF (0-2); WBC Urine 0-5 /HPF (0-5)
[2023-10-05 10:28] LABS: Creatinine Urine 120.09 mg/dL; Microalbum/Creatinine Ratio Ur 7.4 ug/mg cr (<30)
[2023-10-05 10:36] LABS: Alanine Aminotransferase 16 U/L (0-31); Albumin Level 4.1 g/dL (3.5-5.0); Alkaline Phosphatase 101 U/L (39-117); Anion Gap 12 (12-20); Aspartate Amino Transferase 19 U/L (5-31); Bilirubin Total 0.6 mg/dL (0.0-1.0); Blood Urea Nitrogen 15 mg/dL (9-16); Calcium 9.6 mg/dL (8.4-10.2); Carbon Dioxide 28 mmol/L (22-29); Chloride 104 mmol/L (96-108); Cholesterol 146 mg/dL (<200); Estimated Glomerular Filt Rate > 60; Glucose Fasting 164 mg/dL (60-99); HDL Cholesterol 50 mg/dL (>40); LDL Cholesterol Calculated 80 mg/dL (<100); Potassium 3.6 mmol/L (3.3-5.1); Sodium 140 mmol/L (135-145); Total Protein 7.2 g/dL (6.5-8.0); Triglycerides 83 mg/dL (<150)
[2023-10-05 10:51] LABS: TSH reflex Free T4 1.37 uIU/mL (0.32-4.0)
== END 2023-10-05 08:22 | disposition home or self-care (01) ==
LOC: HO.LAB 08:21
PROVIDERS: PCP Internal Medicine; Visit Provider Internal Medicine
DX: I10 Essential (primary) hypertension (principal); E78.00 Pure hypercholesterolemia, unspecified; E11.9 Type 2 diabetes mellitus without complications; E55.9 Vitamin D deficiency, unspecified; R30.0 Dysuria
CPT/HCPCS: 36415; 80053; 80061; 81001; 81003; 82043; 82306; 82570; 83036; 84443; 85025

== ENCOUNTER 2024-01-06 11:00 | Outpatient (RCR) | payer OTHER, SELFPAY | END 2024-03-11 08:57 | disposition home or self-care (01) | LOC: HO.PT 11:00 | PROVIDERS: PCP Internal Medicine; Visit Provider Registered Nurse | DX: G11.9 Hereditary ataxia, unspecified (principal) | CPT/HCPCS: 95992; 97110; 97112; 97162; 97163; 97530 ==

== ENCOUNTER 2024-01-15 15:04 | Emergency (ER) | payer OTHER, SELFPAY ==
--- NOTE | ~2024-01-15 | XR_ITS ---
EXAMINATION: XR ANKLE, LEFT CLINICAL INFORMATION: Pain and bruising COMPARISON: None available. TECHNIQUE: AP, lateral, and mortise views of the left ankle. FINDINGS: Arrow points to the medial aspect of the ankle. No soft tissue swelling, fracture or dislocation. Mortise is intact. Alignment is maintained. Talar and calcaneal spurring. XR/XR ankle LT min 3V IMPRESSION: No acute bony pathology left ankle.
--- NOTE | 2024-01-15 15:11 | ED.GENADULT ---
HPI - General Adult General Chief complaint: General Medical Stated complaint: L Leg is purple Time Seen by Provider: 01/15/24 16:29 Source: patient and RN notes reviewed Mode of arrival: ambulatory Limitations: no limitations History of Present Illness HPI narrative: This is a [id number]-female, with a hx of diabetes, presenting to the ER with complaints of left ankle bruising x 2 days. Pt states that she has had no recent trauma or injury, however noticed brusing to the anterior aspect of her left ankle. She deines any pain with weight bearing. No fevers or chills. No calf tenderness. No chest pain, SOB, dizziness, lightheadedness, headaches, abdominal pain, nausea, vomiting or diarrhea. No other complaints or concerns at this time. MD complaint: Left ankle bruising Onset (ago): day(s) Radiation: non-radiation Quality: aching Pain Consistency: constant Relieving factors: none Exacerbating factors: none Associated symptoms: denies other symptoms Treatments prior to arrival: none Related Data Home Medications Medication Instructions Recorded Confirmed sertraline 100 mg tablet 100 mg PO DAILY 01/08/21 06/10/23 buspirone 10 mg tablet 10 mg PO BID 11/26/21 06/10/23 bupropion HCl 150 mg 24 hr tablet, 150 mg PO DAILY PRN 05/05/22 06/10/23 extended release lancets 30 gauge (Peteuch Amrita #100 ea 03/17/23 06/10/23 Plus Lancet) Previous Rx's Medication Instructions Recorded clotrimazole-betamethasone 1 1 appl topical BID 7 days #45 grams 11/12/20 %-0.05 % topical cream omeprazole 20 mg capsule,delayed 20 mg PO DAILY 90 days #90 caps 04/15/21 release lidocaine 5 % topical ointment 1 appl topical TID PRN pain 15 06/11/21 days #120 grams nystatin 100,000 unit/gram topical 1 appl topical BID 10 days #60 06/11/21 powder grams cyclobenzaprine 10 mg tablet 10 mg PO Q8H PRN muscle spasm 10 09/10/21 days #30 tabs acetaminophen 500 mg tablet 500 mg PO Q6H PRN fever or pain 30 10/23/21 days #120 tabs sennosides 8.6 mg tablet (Senna 8.6 mg PO BEDTIME PRN constipation 10/23/21 Lax) 30 days #30 tabs LIGHTWEIGHT WALKER #1 ea 05/05/22 hydrocortisone 2.5 % topical cream 1 appl topical BID PRN skin 09/20/22 irritation #20 grams ONE TOUCH ULTRA TEST STRIPS #100 ea 12/11/22 duloxetine 60 mg capsule,delayed 60 mg PO DAILY 90 days #90 caps 02/02/23 release atorvastatin 40 mg tablet 40 mg PO BEDTIME 90 days #90 tabs 02/22/23 albuterol sulfate 90 mcg/actuation 2 puff inhalation Q6-8H PRN 03/03/23 aerosol inhaler shortness of breath or wheezing 90 days #3 inhalers aspirin 81 mg chewable tablet 1 tab PO DAILY 90 days #90 tabs 03/03/23 pregabalin 50 mg capsule 50 mg PO BID 30 days #60 caps 03/03/23 ONE TOUCH ULTRA LANCETS #100 ea 03/10/23 insulin glargine 100 unit/mL (3 22 unit (0.22 mL) subcut DAILY 30 03/17/23 mL) subcutaneous pen days #6.6 mL diclofenac sodium 1 % topical gel 2 g transdermal TID PRN pain 90 03/29/23 days #3 grams montelukast 10 mg tablet 10 mg PO QPM 90 days #90 tabs 05/04/23 cholecalciferol (vitamin D3) 50 50 mcg PO DAILY #90 caps 06/10/23 mcg (2,000 unit) capsule (Vitamin D3) fluconazole 150 mg tablet 150 mg PO Q3D 2 doses #2 tabs 06/10/23 miconazole nitrate 2 % topical 1 appl topical BID #85 grams 06/10/23 powder terconazole 0.4 % vaginal cream 5 g vaginal BEDTIME 7 days #45 06/10/23 grams empagliflozin 25 mg tablet 25 mg PO QAM #30 tabs 06/17/23 (Jardiance) flash glucose scanning reader #1 ea 06/17/23 (FreeStyle [place] 2 [place]) flash glucose sensor (FreeStyle #2 ea 06/17/23 [place] 2 Sensor kit) tizanidine 4 mg tablet 4 mg PO BEDTIME PRN muscle spasms 07/08/23 30 days #30 tabs lisinopril 5 mg tablet 5 mg PO DAILY 90 days #90 tabs 09/16/23 tirzepatide 2.5 mg/0.5 mL 2.5 mg (0.5 mL) subcut QWEEK #2 mL 10/12/23 subcutaneous pen injector (Fer) NEBULIZER and all related supplies #1 ea 10/26/23 RECLINER #1 ea 10/26/23 blood-glucose meter #1 ea 10/26/23 albuterol sulfate 2.5 mg/3 mL 2.5 mg (3 mL) continuous 11/03/23 (0.083 %) solution for nebulization nebulization QID PRN shortness of breath or wheezing 30 days #480 mL fluticasone propionate 50 1 spray intranasal DAILY #48 mL 11/03/23 mcg/actuation nasal spray,suspension metformin 1,000 mg tablet 1,000 mg PO BID #180 tabs 12/13/23 blood sugar diagnostic (OneTouch #300 strips 01/03/24 Ultra Test strips) pen needle, diabetic 32 gauge x #100 ea 01/10/24 (BD Pippa 2nd Gen Pen Needle) Allergies Allergy/AdvReac Type Severity Reaction Status Date / Time egg [EGG] Allergy Intermediate VOMITING Verified 06/17/23 14:02 oxycodone [OXYCODONE] Allergy Intermediate NAUSEA/NIGH Verified 06/17/23 14:02 TMARES Penicillins [PCN] Allergy Intermediate RASH Verified 06/17/23 14:02 tramadol [TRAMADOL] Allergy Intermediate ITCHING Verified 06/17/23 14:02 acetaminophen [Percocet] Allergy Unknown none Verified 06/17/23 14:02 codeine Allergy Unknown nightmares Verified 06/17/23 14:02 Review of Systems Review of Systems: Yes all other systems are reviewed and are negative Constitutional: Constitutional: Reports as per [facility] Past Medical History Medical History Allergic rhinitis Anxiety Arthritis Asthma Benign essential hypertension Candidal intertrigo Constipation Contusion of left knee, sequela Depression Diabetes mellitus Diabetes type 2, uncontrolled Diabetic acidosis, type I Diabetic nephropathy associated with type 2 diabetes mellitus Dyslipidemia Fibromyalgia Fibromyalgia GERD without esophagitis Hypertension Insomnia 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 Maternal Grandmother Breast cancer Social History Social History Housing: Apartment Alcohol intake: never Patient Tobacco Use Status: Never used Tobacco Smoked in Last 30 Days: No e-Cigarette/Vaping Use: Never Used Second Hand Smoke Exposure: Yes Use of substances other than those prescribed or required for medical reasons: No Advance Directives: No Advance Directives Information Provided: No service: No Current occupational status: disabled Cognitive needs: No Hearing needs: No Vision needs: Yes Physical Exam ED Vital Signs: Vital Signs - 24 hr 01/15/24 15:12 01/15/24 18:00 Temperature 98.2 F 98 F Pulse Rate 76 70 Respiratory Rate 18 16 Blood Pressure 128/74 120/60 Pulse Oximetry 98 98 Oxygen Delivery Method Room Air Room Air BMI result Body Mass Index 37.4 Const General: cooperative, comfortable and no acute distress Orientation/consciousness: patient oriented x3 Limitations: no limitations HENMT Head: Yes normal to inspection, Yes normocephalic and Yes atraumatic Ears: hearing grossly normal bilaterally General nose exam: Normal external nose present Face and sinus: Yes normal facial exam Mouth: Normal oral and palatal mucosa present, oropharynx normal and moist mucous membranes Throat: Yes posterior oropharynx normal Eyes General: appearance normal, both eyes and all related structures Eyelids: Yes eyelids normal Conjunctivae: conjunctivae normal Sclerae: sclerae normal Pupils: Equal, round and reactive pupils present EOM: EOMs intact bilaterally Neck Neck: Yes normal visual inspection, Yes full ROM and Yes no lymphadenopathy Lymphatic: no lymphadenopathy noted Chest Chest palpation & inspection: normal inspection of the chest Resp Effort & Inspection: normal respiratory effort and able to speak in complete sentences Auscultation: clear to auscultation bilaterally, no crackles, no rales, no rhonchi and no wheezes Cardio Rate: regular rate Rhythm: regular rhythm Heart sounds: S1 normal heart sound present and S2 normal heart sound present GI Inspection: Yes normal to inspection Skin General skin exam: no rashes or lesions noted Trauma: no lacerations or abrasions Wounds: no wounds Neuro General: patient oriented x3 and moves all extremities Cranial nerves: Yes Equal, round and reactive pupils present Extrem Other: Bruising noted to left anterior gomez with mild TTP. No overlying erythema, warmth, open wounds. Full ROM of the ankle without difficulty. Strong DP pulse. No calf TTP. General: Yes normal to inspection Right upper extremity: normal to inspection Left upper extremity: normal to inspection Right lower extremity: normal to inspection Left lower extremity: normal to inspection Course Course Course Narrative: RME performed by Queenie Aguilar PA-C. Patient is a 58 year old assigned female at presenting to the emergency department with left ankle bruising. Patient states that she woke up with left ankle bruising. Patient denies any injury. Detailed physical exam and review of systems are deferred to the manager primary care. Imaging ordered. Patient placed back in the waiting room pending room availability and results. Medical Decision Making Medical Decision Making MDM Narrative: This is a 58-year-old female, with a hx of diabetes, presenting to the ER with complaints of left lower ankle bruising x several days. On arrival, vital signs within normal limits. pt has TTP overlying anterior tib/fib region. DDX including contusion, hematoma, cellulitis. No evidence of infection. She has no calf tenderness or any risk factors for DVT. Likely contusion. Advised to closely monitor region, ice, rest, and elevate. Given return precautions. She understands and agrees with plan. Stable for d/c. Differential Diagnosis Differential Diagnoses: The differential diagnosis associated with the presentation includes See above Admission/Observation Consideration of admission/observation: Escalation of care including admission/observation considered Escalation of care including admission/observation considered however given workup today not warranted at this time. Radiology Impression Discussion of test interpretation with radiology: I have reviewed the radiologist's reading. Radiologist Impression: [address] [id number] XRay Report Signed Patient: Pina Higgins I MR#: [id number] : 1965 Acct:[id number] Age/Sex: 58 / F ADM Date: 01/15/24 Loc: HO.ED Attending Dr: Ordering Physician: Queenie Aguilar Date of Service: 01/15/24 Procedure(s): XR ankle LT min 3V Accession Number(s): [id number] cc: Dwayne Stone MD; Queenie Aguilar~ EXAMINATION: XR ANKLE, LEFT CLINICAL INFORMATION: Pain and bruising COMPARISON: None available. TECHNIQUE: AP, lateral, and mortise views of the left ankle. FINDINGS: Arrow points to the medial aspect of the ankle. No soft tissue swelling, fracture or dislocation. Mortise is intact. Alignment is maintained. Talar and calcaneal spurring. XR/XR ankle LT min 3V IMPRESSION: No acute bony pathology left ankle. Dictated By: Charlene Malagon MD Discharge Plan Discharge Clinical Impression: Hematoma of left ankle Patient Disposition: Home, Self-Care Instructions: Contusion in Adults (ED) Additional Instructions: You presented to the emergency department after having bruising on your left lower leg. Your x-ray does not show any bony fractures. Your ankle does not appear to be infected, please rest, ice, elevate, and use Beto wrap as needed. Follow-up with your primary care physician, call on Thursday to make an appointment. If any new or worsening symptoms occur including but not limited to increased redness, swelling, decreased range of motion, fevers, chills, chest pain, shortness of breath, please return for re-evaluation. Se present? al departamento de emergencias despu?s de tener un hematoma en la parte inferior de la pierna izquierda. Rivas radiograf?a no muestra ninguna fractura ?sea. Rivas tobillo no parece estar infectado; descanse, aplique hielo, el?velo y use Beto Wrap seg?n sea necesario. Melida seguimiento con rivas m?dico de atenci?n primaria, llame el lunes para programar destiny emi. Si se presenta alg?n s?ntoma nuevo o que empeora, incluidos, entre otros, aumento del enrojecimiento, hinchaz?n, disminuci?n del rango de movimiento, fiebre, escalofr?os, dolor en el pecho y dificultad para respirar, regrese para destiny nueva evaluaci?n. Prescriptions: No Action cyclobenzaprine 10 mg tablet 10 mg PO Q8H PRN (Reason: muscle spasm) 10 Days Qty: 30 0RF hydrocortisone 2.5 % cream 1 appl topical BID PRN (Reason: skin irritation) Qty: 20 1RF duloxetine 60 mg capsule,delayed release(DR/EC) 60 mg PO DAILY 90 Days Qty: 90 3RF atorvastatin 40 mg tablet 40 mg PO BEDTIME 90 Days Qty: 90 1RF (DME) ONE TOUCH ULTRA LANCETS See Rx Instructions .Route .MEDSUPPLY Qty: 100 3RF Rx Instructions: TEST 3 TIMES DAILY diclofenac sodium 1 % gel 2 g transdermal TID PRN (Reason: pain) 90 Days Qty: 3 3RF montelukast 10 mg tablet 10 mg PO QPM 90 Days Qty: 90 3RF tizanidine 4 mg tablet 4 mg PO BEDTIME PRN (Reason: muscle spasms) 30 Days Qty: 30 1RF lisinopril 5 mg tablet 5 mg PO DAILY 90 Days Qty: 90 1RF Mounjaro 2.5 mg/0.5 mL pen injector 2.5 mg subcut QWEEK Qty: 2 4RF (DME) blood-glucose meter Kit See Rx Instructions .Route Qty: 1 0RF Rx Instructions: As directed 3x/day (DME) NEBULIZER and all related supplies See Rx Instructions .Route .MEDSUPPLY Qty: 1 0RF Rx Instructions: As directed (DME) RECLINER See Rx Instructions .Route .MEDSUPPLY Qty: 1 0RF Rx Instructions: As directed fluticasone propionate 50 mcg/actuation spray,suspension 1 spray intranasal DAILY Qty: 48 1RF albuterol sulfate 2.5 mg /3 mL (0.083 %) solution for nebulization 2.5 mg continuous nebulization QID PRN (Reason: shortness of breath or wheezing) 30 Days Qty: 480 5RF Rx Instructions: Use with nebulizer three to four times a day as needed metformin 1,000 mg tablet 1,000 mg PO BID Qty: 180 5RF (DME) OneTouch Ultra Test Strip See Rx Instructions .ROUTE .COMPLEX Qty: 300 5RF Dose Instruction: JASS VECES AL BERTIN Rx Instructions: JASS VECES AL BERTIN (DME) pen needle, diabetic [BD Pippa 2nd Gen Pen Needle] 32 gauge x 5/32 needle See Rx Instructions .ROUTE .COMPLEX Qty: 100 3RF Dose Instruction: TODOS SANJEEV VIRAMONTES Rx Instructions: TODOS SANJEEV VIRAMONTES omeprazole 20 mg capsule,delayed release(DR/EC) 20 mg PO DAILY 90 Days Qty: 90 3RF nystatin 100,000 unit/gram powder 1 appl topical BID 10 Days Qty: 60 1RF lidocaine 5 % ointment 1 appl topical TID PRN (Reason: pain) 15 Days Qty: 120 2RF sennosides [Senna Lax] 8.6 mg tablet 8.6 mg PO BEDTIME PRN (Reason: constipation) 30 Days Qty: 30 3RF acetaminophen 500 mg tablet 500 mg PO Q6H PRN (Reason: fever or pain) 30 Days Qty: 120 3RF albuterol sulfate 90 mcg/actuation HFA aerosol inhaler 2 puff inhalation Q6-8H PRN (Reason: shortness of breath or wheezing) 90 Days Qty: 3 3RF aspirin 81 mg tablet,chewable 1 tab PO DAILY 90 Days Qty: 90 3RF pregabalin 50 mg capsule 50 mg PO BID 30 Days Qty: 60 1RF terconazole 0.4 % cream 5 g vaginal BEDTIME 7 Days Qty: 45 4RF miconazole nitrate 2 % powder 1 appl topical BID Qty: 85 3RF Rx Instructions: apply to affected areas fluconazole 150 mg tablet 150 mg PO Q3D 0 Days Qty: 2 5RF Rx Instructions: may repeat second dose 72 hrs after first dose if symptoms persist cholecalciferol (vitamin D3) [Vitamin D3] 50 mcg (2,000 unit) capsule 50 mcg PO DAILY Qty: 90 1RF bupropion HCl 150 mg tablet extended release 24 hr 150 mg PO DAILY PRN (DME) LIGHTWEIGHT WALKER See Rx Instructions .Route .MEDSUPPLY Qty: 1 0RF Rx Instructions: As directed sertraline 100 mg tablet 100 mg PO DAILY buspirone 10 mg tablet 10 mg PO BID clotrimazole-betamethasone 1-0.05 % cream 1 appl topical BID 7 Days Qty: 45 0RF (DME) ONE TOUCH ULTRA TEST STRIPS See Rx Instructions .Route .MEDSUPPLY Qty: 100 3RF Rx Instructions: TEST 3 TIMES DAILY (DME) lancets [OneTouch Delica Plus Lancet] 30 gauge misc See Rx Instructions .ROUTE TID Qty: 100 Rx Instructions: As directed insulin glargine 100 unit/mL (3 mL) insulin pen 22 unit subcut DAILY 30 Days Qty: 6.6 6RF Jardiance 25 mg tablet 25 mg PO QAM Qty: 30 5RF (DME) FreeStyle [place] 2 [place] Misc See Rx Instructions .Route Qty: 1 0RF Rx Instructions: As directed (DME) FreeStyle [place] 2 Sensor Kit See Rx Instructions .Route Qty: 2 0RF Rx Instructions: As directed change every 14 days Discharge Date/Time: 01/15/24 18:40
[2024-01-15 15:12] VITALS: BP 128/74; PULSE 76; RESP 18; TEMP 36.8; O2SAT 98; BMI 37.4
[2024-01-15 18:00] VITALS: BP 120/60; PULSE 70; RESP 16; TEMP 36.6; O2SAT 98
== END 2024-01-15 18:40 | disposition home or self-care (01) ==
PROVIDERS: Emergency Provider Emergency Medicine Emergency Medical Services; PCP Internal Medicine
DX: S90.02XA Contusion of left ankle, initial encounter (principal); E11.9 Type 2 diabetes mellitus without complications; I10 Essential (primary) hypertension; X58.XXXA Exposure to other specified factors, initial encounter; Y93.9 Activity, unspecified; Y92.9 Unspecified place or not applicable; Y99.9 Unspecified external cause status
CPT/HCPCS: 73610; 99283; 99284

== ENCOUNTER 2024-01-27 10:52 | Outpatient (AMB) | payer OTHER, SELFPAY ==
--- NOTE | 2024-01-27 11:29 | MHC.AMDMED ---
Intake Intake Visit Reasons: dm/confirmed Certified Medicine Aide Required: Yes Certified Medicine Aide Language: Headend Technician Name: Lindsay [id number] Accompanied by: Self / Same As Patient Allergies egg [EGG] Allergy (Intermediate, Verified 06/17/23 14:02) VOMITING oxycodone [OXYCODONE] Allergy (Intermediate, Verified 06/17/23 14:02) NAUSEA/NIGHTMARES Penicillins [PCN] Allergy (Intermediate, Verified 06/17/23 14:02) RASH tramadol [TRAMADOL] Allergy (Intermediate, Verified 06/17/23 14:02) ITCHING acetaminophen [Percocet] Allergy (Unknown, Verified 06/17/23 14:02) none codeine Allergy (Unknown, Verified 06/17/23 14:02) nightmares HPI Comprehensive Diabetes Asmnt Most Recent Diabetes Results: Microalb/Creat Ratio 7.4 ug/mg cr (<30) 10/05/23 Cholesterol 146 mg/dL (<200) 10/05/23 HDL Cholesterol 50 mg/dL (>40) 10/05/23 Triglycerides 83 mg/dL (<150) 10/05/23 Creatinine 0.78 mg/dL (0.5-1.4) 10/05/23 Blood Urea Nitrogen 15 mg/dL (9-16) 10/05/23 Sodium 140 mmol/L (135-145) 10/05/23 Potassium 3.6 mmol/L (3.3-5.1) 10/05/23 Chloride 104 mmol/L (96-108) 10/05/23 Carbon Dioxide 28 mmol/L (22-29) 10/05/23 Calcium 9.6 mg/dL (8.4-10.2) 10/05/23 AST 19 U/L (5-31) 10/05/23 ALT 16 U/L (0-31) 10/05/23 Total Protein 7.2 g/dL (6.5-8.0) 10/05/23 Albumin 4.1 g/dL (3.5-5.0) 10/05/23 [facility] Medical History Allergic rhinitis Anxiety Arthritis Asthma Benign essential hypertension Candidal intertrigo Constipation Contusion of left knee, sequela Depression Diabetes mellitus Diabetes type 2, uncontrolled Diabetic acidosis, type I Diabetic nephropathy associated with type 2 diabetes mellitus Dyslipidemia Fibromyalgia Fibromyalgia GERD without esophagitis Hypertension Insomnia Iron deficiency 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 Maternal Grandmother Breast cancer Social History Housing: Apartment Alcohol intake: never Patient Tobacco Use Status: Never used Tobacco e-Cigarette/Vaping Use: Never Used Second Hand Smoke Exposure: Yes service: No Current occupational status: disabled Cognitive needs: No Hearing needs: No Vision needs: Yes Female Reproductive History Menstrual Age of Menarche: 10 Assessment & Plan Assessment & Plan (1) Diabetes type 2, uncontrolled: Code(s): E11.65 - Type 2 diabetes mellitus with hyperglycemia Plan: CGM Info Instructed Pt on what CGM can and can't do CGM Can: Give Pt minute by minute reading of glucose levels Displays glucose trend arrows that represents the direction glucose levels are fluctuating Give insight on decisions about how to dose insulin CGM cannot: Improve glucose control on its own Completely eliminate the need for all finger sticks Make dosing decision for you CGM is the reading of glucose in the interstitial fluid not actual blood glucose, finger sticks are still necessary when Pt's symptom?s do not match sensor reading and if sensors prompts Pt to do a fingerstick Patient? is interested in the Reviewed Medicare guidelines for obtaining CGM Reviewed delay of CGM from fingersticks Reminded pt that if symptoms do not match sensor still needs to check fingersticks. Patient would like to order [place] [address] waiter/waitress Patient will call for training appointment when she receives CGM equipment Patient Instructions: Instrucciones para el paciente: CGM proporciona informaci?n sobre el control de la glucosa en jazzy a lo annabella del d?a, incluidas la hiperglucemia y la hipoglucemia. Contin?e controlando la glucosa en jazzy seg?n las instrucciones. Siga las pautas de nutrici?n proporcionadas. Informe cualquier molestia de inmediato al proveedor de atenci?n m?dica. Mantente omar hidratado. Puede ba?arse, ducharse, nadar y hacer ejercicio mientras usa el sensor de glucosa. No sumerja el sensor de glucosa en agua maximiliano m?s de 30 minutos. Retire el sensor para destiny resonancia magn?ofelia o destiny tomograf?a computarizada. Evite la m?quina de danilo X en los aeropuertos: retire el sensor o solicite la varita Coding Level of Care Code Est Pt Level 1 (54821) Diagnoses Diabetes type 2, uncontrolled E11.65
== END 2024-01-27 11:31 | disposition home or self-care (01) ==
PROVIDERS: PCP Internal Medicine; Visit Provider Registered Nurse Diabetes Educator
DX: E11.65 Type 2 diabetes mellitus with hyperglycemia (principal)

== ENCOUNTER → 2024-01-27 11:00 | Outpatient (BNVA) | payer OTHER, SELFPAY | PROVIDERS: PCP Internal Medicine; Visit Provider Registered Nurse Diabetes Educator | DX: E11.65 Type 2 diabetes mellitus with hyperglycemia (principal) | CPT/HCPCS: 99211 ==

== ENCOUNTER 2024-02-09 09:36 | Outpatient (REF) | payer OTHER, SELFPAY ==
[2024-02-09 11:09] LABS: Basophils Percent Auto 0.5 % (0-2); Eosinophils Absolute Auto 0.1 X10*3/uL (0.0-0.4); Eosinophils Percent Auto 1.2 % (0-4); Hematocrit 40.3 % (37.0-47.0); Hemoglobin 13.1 g/dl (12.0-16.0); Imm Gran Abs Auto 0.03 X10*3/uL (0.00-0.03); Imm Gran Pct Auto 0.4 % (0.0-0.4); Lymphocytes Absolute Auto 2.5 X10*3/uL (1.2-4.9); Lymphocytes Percent Auto 32.9 % (20-40); Mean Corpuscular HGB Conc 32.5 g/dl (31.0-35.0); Monocytes Absolute Auto 0.5 X10*3/uL (0.1-1.2); Neutrophils Absolute Auto 4.4 x10*3/uL (2.0-8.3); Red Blood Count 5.04 X10*6/uL (4.20-5.50); Red Cell Distribution Width 14.6 % (11.0-16.0)
[2024-02-09 11:10] LABS: White Blood Count 7.7 X10*3/uL (4.8-10.8)
[2024-02-09 11:14] LABS: Appearance Urine Clear; Color Urine Yellow; Glucose Urine UA >=1000 mg/dL (Negative); Leukocyte Esterase Urine Negative (Negative); Nitrite Urine Negative (Negative); PH 5.5 (5.0-9.0); Specific Gravity - Urine >= 1.030 (1.005-1.025); UMIC TRIGGER UACC YES; Urine Blood Negative (Negative); Urine Ketones Negative (Negative); Urine Protein Trace mg/dL (Neg-Trace)
[2024-02-09 11:22] LABS: Bacteria Urine None Seen (None Seen); Hyaline Casts Urine 0-2 /LPF (0-2); RBC Urine 0-2 /HPF (0-2); Squamous Epithelial Cell Urine 0-2 /HPF (0-2); WBC Urine 0-5 /HPF (0-5)
[2024-02-09 11:24] LABS: Estimated Average Glucose 146 mg/dL; Hemoglobin A1c % 6.7 % (<6.0)
[2024-02-09 11:31] LABS: Creatinine Urine 225.85 mg/dL; Microalbum/Creatinine Ratio Ur 15.9 ug/mg cr (<30)
[2024-02-09 11:37] LABS: Alanine Aminotransferase 17 U/L (0-31); Alkaline Phosphatase 83 U/L (39-117); Anion Gap 13 (12-20); Aspartate Amino Transferase 19 U/L (5-31); Bilirubin Total 0.6 mg/dL (0.0-1.0); Blood Urea Nitrogen 13 mg/dL (9-16); Calcium 9.5 mg/dL (8.4-10.2); Carbon Dioxide 23 mmol/L (22-29); Chloride 106 mmol/L (96-108); Cholesterol 209 mg/dL (<200); Estimated Glomerular Filt Rate > 60; Glucose Fasting 194 mg/dL (60-99); HDL Cholesterol 51 mg/dL (>40); LDL Cholesterol Calculated 118 mg/dL (<100); Potassium 3.8 mmol/L (3.3-5.1); Sodium 138 mmol/L (135-145); Total Protein 7.2 g/dL (6.5-8.0); Triglycerides 202 mg/dL (<150)
[2024-02-09 11:50] LABS: Vitamin D 25-OH Total 35.5 ng/mL (>30)
[2024-02-09 12:12] LABS: Folate 13.8 ng/mL (> or = 4.0); Vitamin B12 436 pg/mL (200-900)
== END 2024-02-09 09:37 | disposition home or self-care (01) ==
LOC: HO.LAB 09:36
PROVIDERS: PCP Internal Medicine; Visit Provider Internal Medicine
DX: E11.9 Type 2 diabetes mellitus without complications (principal); D64.9 Anemia, unspecified; E78.00 Pure hypercholesterolemia, unspecified; E53.8 Deficiency of other specified B group vitamins; E55.9 Vitamin D deficiency, unspecified
CPT/HCPCS: 36415; 80053; 80061; 81001; 81003; 82043; 82306; 82570; 82607; 82746; 83036; 85025

== ENCOUNTER 2024-02-10 13:31 | Outpatient (AMB) | payer OTHER, SELFPAY ==
--- NOTE | 2024-02-10 13:51 | A.OFFPC_ITS ---
Vital Signs 02/10/24 13:54 Height 5 ft 5 in Weight 213 lb 8 oz BMI 35.5 BP 110/70 Blood Pressure Location Lt brachial Position Sitting Pulse 77 Pulse Source Pulse Oximeter Pulse Oximetry (%) 98 Oxygen Delivery Method Room Air Intake Visit Reasons: 3M F/U- DM Intake Note: Patient is here to follow up on DM. Environmental Quality Analyst Required: No Steam Conditioning Operator: Not Required per policy Accompanied by: Self / Same As Patient Allergies egg [EGG] Allergy (Intermediate, Verified 02/10/24 14:37) VOMITING oxycodone [OXYCODONE] Allergy (Intermediate, Verified 02/10/24 14:37) NAUSEA/NIGHTMARES Penicillins [PCN] Allergy (Intermediate, Verified 02/10/24 14:37) RASH tramadol [TRAMADOL] Allergy (Intermediate, Verified 02/10/24 14:37) ITCHING acetaminophen [Percocet] Allergy (Unknown, Verified 02/10/24 14:37) none codeine Allergy (Unknown, Verified 02/10/24 14:37) nightmares Medication List - Last Reconciled 02/10/24 by Dwayne Stone MD acetaminophen 500 mg PO Q6H PRN 30 days albuterol sulfate 90 mcg/actuation 2 puffs inhalation Q6-8H PRN 90 days albuterol sulfate 2.5 mg (3 mL) continuous nebulization QID PRN 30 days aspirin 1 tab PO DAILY 90 days atorvastatin 40 mg PO BEDTIME 90 days blood sugar diagnostic (Perfect Escapesuch Ultra Test strips) JASS REEVES AL BERTIN blood-glucose meter As directed 3x/day bupropion HCl 150 mg PO DAILY PRN buspirone 10 mg PO BID cholecalciferol (vitamin D3) (Vitamin D3) 50 mcg PO DAILY clotrimazole-betamethasone 1-0.05 % 1 appl topical BID 7 days cyclobenzaprine 10 mg PO Q8H PRN 10 days diclofenac sodium 1% 2 grams transdermal TID PRN 90 days duloxetine 60 mg PO DAILY 90 days empagliflozin (Jardiance) 25 mg PO QAM fluticasone propionate 50 mcg/actuation 1 spray intranasal DAILY hydrocortisone 2.5% 1 appl topical BID PRN insulin glargine 22 units (0.22 mL) subcut DAILY 30 days lancets (Perfect Escapesuch Delica Plus Lancet) As directed lidocaine 5% 1 appl topical TID PRN 15 days [LIGHTWEIGHT WALKER As directed] lisinopril 5 mg PO DAILY 90 days metformin 1,000 mg PO BID montelukast 10 mg PO QPM 90 days [NEBULIZER and all related supplies As directed] nystatin 1 appl topical BID 10 days omeprazole 20 mg PO DAILY 90 days [ONE TOUCH ULTRA LANCETS TEST 3 TIMES DAILY] [ONE TOUCH ULTRA TEST STRIPS TEST 3 TIMES DAILY] pen needle, diabetic (BD Pippa 2nd Gen Pen Needle) TOVALERIE LOS VIRAMONTES pregabalin 50 mg PO BID 30 days [RECLINER As directed] sennosides (Senna Lax) 8.6 mg PO BEDTIME PRN 30 days sertraline 100 mg PO DAILY terconazole 0.4% 5 grams vaginal BEDTIME 7 days tirzepatide (Mounjaro) 2.5 mg (0.5 mL) subcut QWEEK tizanidine 4 mg PO BEDTIME PRN 30 days Tobacco use date assessed: 02/10/24 Dental Screening Dental Screen Date: 02/10/24 Did you have a dental visit in the last 12 months?: Yes Did you have a dental problem in the last 6 months where you did not have access to dental care?: No Was dental information given to patient?: Patient has dentist HPI 3M F/U- DM HPI Details Patient comes in today for her follow up visit States that she feels okay She denies any headaches or dizziness Denies any chest pains, no SOB No nausea/vomiting, no abdominal pain No change in bowel habits noted States that she has been out of her Atorvastatin for about a month now and for unclear reasons, could not seem to get her pharmacy to refill her Rx States that she needs a few of her Rx refilled Had her follow up labs done yesterday - to discuss her results [facility] Medical History Primary osteoarthritis of left knee Constipation Contusion of left knee, sequela Muscle strain of right shoulder region Candidal intertrigo Meniere's disease Memory impairment Arthritis Fibromyalgia Diabetic acidosis, type I Obesity (BMI 30-39.9) Depression Anxiety Insomnia Iron deficiency Vitamin D deficiency Osteoarthrosis GERD without esophagitis Allergic rhinitis Pure hypercholesterolemia Diabetes mellitus Benign essential hypertension Fibromyalgia Asthma Obesity Dyslipidemia Hypertension 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 Maternal Grandmother Breast cancer Social History Housing: Apartment Alcohol intake: never Patient Tobacco Use Status: Never used Tobacco e-Cigarette/Vaping Use: Never Used Second Hand Smoke Exposure: Yes service: No Current occupational status: disabled Cognitive needs: Yes (cane) Hearing needs: No Vision needs: Yes (glasses) Female Reproductive History Menstrual Age of Menarche: 10 Questionnaire PHQ-9 Over the last 2 weeks, how often have you been bothered by any of the following problems? 1. Little interest or pleasure in doing things: several days 2. Feeling down, depressed, or hopeless: nearly every day 3. Trouble falling or staying asleep, or sleeping too much: several days 4. Feeling tired or having little energy: more than half the days 5. Poor appetite or overeating: several days 6. Feeling bad about yourself - or that you are a failure or have let yourself or your family down: several days 7. Trouble concentrating on things, such as reading the newspaper or watching television: several days 8. Moving or speaking so slowly that other people could have noticed. Or the opposite - being so fidgety or restless that you have been moving around a lot more than usual: several days 9. Thoughts that you would be better off or of hurting yourself in some way: not at all Total score: 11 Depression Screening Interpretation: Positive Depression Screening Follow-up: Existing condition and In treatment Depression Screening Done: Yes 48244 - PHQ-9 Billing: Yes Source: Developed by Drs. Kory Jerez, Nina Minaya, Basilio Peterson and colleagues, with an educational sheldon from [employer]. Thrive Questionnaire Date Thrive assessed: 02/10/24 I am a: Patient What is your living situation today?: I have a steady place to live Within the past 12 months, did the food you bought not last and you didn't have the money to get more?: Never true Within the past 12 months, did you worry whether your food would run out before you got money to buy more?: Never true Do you have trouble paying for medicines?: No Do you have trouble getting transportation to medical appointments?: No Do you have trouble paying your heating and electricity bill?: No Do you have trouble taking care of your child, family member or friend?: No Do you have trouble with day-to-day activities such as bathing, preparing meals, shopping, managing finances, etc.?: No Are you currently unemployed and looking for a job?: No Are you interested in more education?: No Currently or been in a relationship where the following occur: no concerns reported THRIVE Score: 0 AUDIT C Alcohol Use Questionnaire (AUDIT-C) 1. How often do you have a drink containing alcohol?: Never 3. How often do you have six or more drinks on one occasion?: Never Total Score: 0 Score Reviewed/Action Taken: Yes RACHAEL-7 AMB Questionnaire RACHAEL-7 Date RACHAEL - 7 assessed: 02/10/24 Feeling nervous, anxious, or on edge: 3 = Nearly every day Not being able to stop or control worryin = More than half the days Worrying too much about different things: 2 = More than half the days Trouble relaxin = Several days Being so restless that it is hard to sit still: 1 = Several days Becoming easily annoyed or irritable: 1 = Several days Feeling afraid as if something awful might happen: 0 = Not at all Total RACHAEL-7 score (0-4 normal; 5-9 mild; 10-14 moderate; 15-21 severe): 10 Source: Developed by Drs. Kory Jerez, Nina Minaya, Basilio Peterson and colleagues, with an educational sheldon from [employer]. Review of Systems Const Reports difficulty sleeping, Reports fatigue, Denies fever(s) and Denies headache(s) ENT Denies dysphagia, Reports dizziness (on and off), Denies otalgia, Denies headache(s), Denies neck pain, Denies odynophagia and Denies sore throat Card Denies chest pain, Denies rapid heart rate, Denies irregular heart rhythm, Denies palpitations and Denies dyspnea Resp Denies chest congestion, Denies cough, Denies dyspnea and Denies wheezing GI Denies abdominal pain, Denies constipation, Denies dysphagia, Denies heartburn, Denies diarrhea, Denies nausea, Denies odynophagia and Denies vomiting Denies hematuria, Denies dysuria, Denies urinary incontinence and Denies urinary urgency Musc Reports abnormal gait (unsteady), Reports back pain (over the lower back), Reports myalgias (diffuse), Reports arthralgias (multiple joints, especially over her left knee and around right shoulder) and Denies neck pain Skin/Breast Denies rash Neuro Reports abnormal gait (unsteady), Reports dizziness (on and off) and Denies headache(s) Endo Reports fatigue and Denies palpitations Aller/Immun Denies wheezing Physical exam (Primary Care) Vital Signs: Last Vital Signs Pulse 77 02/10/24 13:54 BP 110/70 02/10/24 13:54 Pulse Ox 98 02/10/24 13:54 Oxygen Delivery Method Room Air 02/10/24 13:54 BMI result Body Mass Index 35.5 Tobacco/Smoking Status: Tobacco use Status Tobacco use date assessed 02/10/24 02/10/24 14:06 Patient Tobacco Use Status Never used Tobacco 02/10/24 14:06 e-Cigarette/Vaping Use Never Used 02/10/24 14:06 PHQ-9: PHQ-9 Score PHQ-9: Total score 11 02/10/24 14:37 Depression Screening Interpretation: Positive Depression Screening Follow-up: Existing condition and In treatment Thrive Assessment: Date of Thrive Assessment Date Thrive assessed 02/10/24 02/10/24 14:06 Currently or been in a relationship where the following occur: no concerns reported Const General: no acute distress and alert HENMT Ears: TM's normal bilaterally and EAC's normal Throat: Yes posterior oropharynx normal and Yes tonsils normal (no TP congestion noted) Neck Neck: Yes no lymphadenopathy and Yes supple Thyroid: Thyroid normal Resp Auscultation: clear to auscultation bilaterally, no rales and no wheezes Cardio Rate: regular rate Rhythm: regular rhythm Heart sounds: no murmurs GI Palpation (GI): Soft to palpation and nontender Auscultation: normal bowel sounds General: Yes no CVA tenderness Back/Spine/Pelvis Back: no CVA tenderness Thoracic/Lumbar Spine: paraspinal muscle tenderness bilaterally in the lower thoracic, in the upper lumbar, in the mid lumbar and in the lower lumbar and lumbar spinal tenderness Skin Rashes: no rashes Extrem General: Yes no clubbing, cyanosis or edema Right upper extremity: shoulder/upper arm Details: tenderness Location: of the A-C joint and of the scapula; no swelling Left upper extremity: elbow/forearm Details: tenderness; no swelling Right lower extremity: knee Details: tenderness Results Reviewed Results Reviewed: Laboratory Tests 02/09/24 02/09/24 02/09/24 09:58 10:00 10:00 WBC 7.7 Hgb 13.1 Hct 40.3 Plt Count TNP Sodium 138 Potassium 3.8 Creatinine 0.63 Fasting Glucose 194 H Hemoglobin A1c % 6.7 H Calcium 9.5 AST 19 ALT 17 Triglycerides 202 H Cholesterol 209 H LDL Cholesterol, Calc 118 H HDL Cholesterol 51 Vitamin B12 436 25-OH Vitamin D Total 35.5 Urine pH 5.5 Ur Specific [place] >= 1.030 H Urine Protein Trace Urine Glucose (UA) >=1000 H Urine Blood Negative Urine Nitrite Negative Ur Leukocyte Esterase Negative Microalb/Creat Ratio 15.9 Assessment and Plan Assessment & Plan (1) Diabetes mellitus: Code(s): E11.9 - Type 2 diabetes mellitus without complications Qualifiers: Diabetes mellitus complication status: without complication Diabetes 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 Otero Is also seeing a floral designer salesperson regularly for dietary counseling and teaching - to continue as scheduled (2) Pure hypercholesterolemia: Code(s): E78.00 - Pure hypercholesterolemia, unspecified Plan: Results of her labs done yesterday reviewed and discussed with patient - she is advised that her cholesterol levels have increased significantly from previous, most likely because she has been out of her cholesterol Rx for about a month now Reinforced low cholesterol diet Will start her back on Atorvastatin 40 mg QD Will recheck her labs and fasting lipids in 3 months for follow-up (3) Benign essential hypertension: Code(s): I10 - Essential (primary) hypertension Plan: Reinforced low sodium diet - goal is systolic BP of at least 120 to 130 mm or less Continue Lisinopril 5 mg QD (4) Dizziness: Code(s): R42 - Dizziness and giddiness Plan: States that she still has occasional dizziness but this has been occurring much less often than before - (+) Hx of Meniere's disease Was seen by neurology in September 2022 and diagnosed with cerebellar ataxia MRI of the brain done in September 2022 revealed (+) scattered nonspecific white matter T2 hyperintensities in both cerebral hemispheres with no evidence for acute or subacute cerebral ischemia, hemorrhage, extra-axial fluid collection, space-occupying process, mass effect or hydrocephalus Follow up with neurology as scheduled (5) GERD without esophagitis: Code(s): K21.9 - Gastro-esophageal reflux disease without esophagitis Plan: Dietary restrictions reinforced Continue Omeprazole 20 mg QD (6) Osteoarthrosis: Code(s): M19.90 - Unspecified osteoarthritis, unspecified site Qualifiers: Osteoarthritis location: unspecified site Osteoarthritis type: primary Qualified Code(s): M19.91 - Primary osteoarthritis, unspecified site Plan: X-rays of both hands done a couple of years ago showed (+) mild OA changes in the right hand; left hand x-rays were normal except for an old metacarpal fracture that has since healed Follow-up with Orthopedics and Rheumatology as scheduled - she has been diagnosed with polyarthralgia by Rheumatology She is encouraged again on regular hand exercises to help minimize her hand stiffness and pain Continue Tramadol 50 mg TID PRN and Tylenol Arthritis 650 mg 3 times a day as needed, Piroxicam 10 mg once a day with food as needed and Diclofenac 1% topical Gel TID PRN (7) Primary osteoarthritis of left knee: Code(s): M17.12 - Unilateral primary osteoarthritis, left knee Plan: X-rays of the left knee done last year revealed (+) moderate degenerative conde ges Will consider orthopedic referral if her knee pain gets worse (8) Allergic rhinitis: Code(s): J30.9 - Allergic rhinitis, unspecified Qualifiers: Allergic rhinitis seasonality: unspecified Allergic rhinitis trigger: unspecified Qualified Code(s): J30.9 - Allergic rhinitis, unspecified Plan: Continue Montelukast 10 mg QD, Loratadine 10 mg QD PRN and Fluticasone 50 mcg nasal spray QD PRN (9) Vitamin D deficiency: Code(s): E55.9 - Vitamin D deficiency, unspecified Plan: Continue Vitamin D3 2000 units QD (10) Constipation: Code(s): K59.00 - Constipation, unspecified Qualifiers: Constipation type: unspecified constipation type Qualified Code(s): K59.00 - Constipation, unspecified Plan: Improved; reinforced increased oral fluids and dietary fiber Continue Senna 8.6 mg QD PRN (11) Fibromyalgia: Code(s): M79.7 - Fibromyalgia Plan: Encouraged again on regular exercise and physical activity to help manage her fibromyalgia symptoms Continue Duloxetine 60 mg once a day and Tizanidine 4 mg Q HS PRN Continue Pregabalin 50 mg BID - is tolerating Lyrica so far (was taken off Gabapentin previously as she was concerned that the medication was affecting her memory) (12) Frequent nocturnal awakening: Code(s): G47.00 - Insomnia, unspecified Plan: States that she has no trouble falling asleep, especially with her current sleep aids BUT still wakes up frequently in the middle of the night (multiple times and also sometimes on a daily basis) and finds herself gasping for air She has been referred to sleep medicine for further evaluation and management previously (possible issues with JENNIFER or at least, nocturnal hypoxemia) but she missed her appointment and has not yet been able to get this rescheduled (13) Insomnia: Code(s): G47.00 - Insomnia, unspecified Qualifiers: Insomnia type: unspecified Qualified Code(s): G47.00 - Insomnia, unspecified Plan: Sleep hygiene reinforced Continue Trazodone 50 mg Q HS PRN (14) Anxiety: Code(s): F41.9 - Anxiety disorder, unspecified Plan: Continue Lorazepam 0.5 mg Q HS PRN and Hydroxyzine 25 mg 3 times a day as needed (15) Depression: Code(s): F32.9 - Major depressive disorder, single episode, unspecified Qualifiers: Depression Type: unspecified Qualified Code(s): F32.9 - Major depressive disorder, single episode, unspecified Plan: Continue Bupropion ER 300 mg once a day Follow-up with Psychiatry as scheduled (16) Obesity (BMI 30-39.9): Code(s): E66.9 - Obesity, unspecified Plan: Reinforced diet/exercise as tolerated/lose weight Plan Follow up in 3 months Orders: Orders Comprehensive [place]. Panel Fast 3 Months E78.00 - Pure hypercholesterolemia, unspecified Hemoglobin A1c 3 Months E11.9 - Type 2 diabetes mellitus without complications Microalbumin, Random (w Creat) 3 Months E11.9 - Type 2 diabetes mellitus without complications Vitamin B12 and Folate 3 Months E53.8 - Deficiency of other specified B group vitamins Complete Blood Count Auto Diff 3 Months D64.9 - Anemia, unspecified Lipid Panel 3 Months E78.00 - Pure hypercholesterolemia, unspecified TSH reflex Free T4 3 Months E78.00 - Pure hypercholesterolemia, unspecified UA CC w/rflx Micro + Cult 3 Months R30.0 - Dysuria Vitamin D 25-OH Total 3 Months E55.9 - Vitamin D deficiency, unspecified Medications: Changed From empagliflozin (Jardiance) 25 mg PO QAM 30 tabs 5RF To empagliflozin (Jardiance) 25 mg PO QAM 90 days 90 tabs 3RF From metformin 1,000 mg PO BID 180 tabs 5RF E11.65 - Type 2 diabetes mellitus with hyperglycemia To metformin 1,000 mg PO BID 90 days 180 tabs 3RF E11.65 - Type 2 diabetes mellitus with hyperglycemia Refilled atorvastatin 40 mg PO BEDTIME 90 days 90 tabs 3RF acetaminophen 500 mg PO Q6H 30 days PRN 120 tabs 3RF fever or pain Coding Level of Care Code Est Pt Level 4 (24404) Diagnoses Type 2 diabetes mellitus without complication, with long-term current use of insulin E11.9; Z79.4 Diabetes mellitus complication status: without complication Diabetes mellitus long-term insulin use: with long-term use Diabetes mellitus type: type 2 Pure hypercholesterolemia E78.00 Benign essential hypertension I10 Dizziness R42 GERD without esophagitis K21.9 Primary osteoarthritis, unspecified site M19.91 Osteoarthritis location: unspecified site Osteoarthritis type: primary Primary osteoarthritis of left knee M17.12 Allergic rhinitis, unspecified seasonality, unspecified trigger J30.9 Allergic rhinitis seasonality: unspecified Allergic rhinitis trigger: unspecified Vitamin D deficiency E55.9 Constipation, unspecified constipation type K59.00 Constipation type: unspecified constipation type Fibromyalgia M79.7 Frequent nocturnal awakening G47.00 Insomnia, unspecified type G47.00 Insomnia type: unspecified Anxiety F41.9 Depression, unspecified depression type F32.9 Depression Type: unspecified Obesity (BMI 30-39.9) E66.9
[2024-02-10 13:54] VITALS: BP 110/70; PULSE 77; O2SAT 98; BMI 35.5
== END 2024-02-10 14:47 | disposition home or self-care (01) ==
PROVIDERS: PCP Internal Medicine; Visit Provider Internal Medicine
DX: E11.9 Type 2 diabetes mellitus without complications (principal); Z79.4 Long term (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; E78.00 Pure hypercholesterolemia, unspecified; I10 Essential (primary) hypertension; R42 Dizziness and giddiness; K21.9 Gastro-esophageal reflux disease without esophagitis; M19.91 Primary osteoarthritis, unspecified site; M17.12 Unilateral primary osteoarthritis, left knee; J30.9 Allergic rhinitis, unspecified; E55.9 Vitamin D deficiency, unspecified; K59.00 Constipation, unspecified; M79.7 Fibromyalgia
CPT/HCPCS: 99214

== ENCOUNTER 2024-02-16 08:47 | Outpatient (AMB) | payer OTHER, SELFPAY ==
[2024-02-16 09:24] VITALS: BP 122/78; PULSE 79; O2SAT 96; BMI 35.4
--- NOTE | 2024-02-16 09:24 | A.OFFVIS_ITS ---
Intake Vital Signs 02/16/24 09:24 Height 5 ft 5 in Weight 212 lb 11.937 oz BMI 35.4 BP 122/78 Blood Pressure Location Rt brachial Position Sitting Pulse 79 Pulse Source Doppler Pulse Oximetry (%) 96 Oxygen Delivery Method Room Air Intake Visit Reasons: asthma Trauma Counsellor Required: Yes Trauma Counsellor Name: Jennifer Nickerson GaleLChandler Allergies egg [EGG] Allergy (Intermediate, Verified 02/16/24 09:28) VOMITING oxycodone [OXYCODONE] Allergy (Intermediate, Verified 02/16/24 09:28) NAUSEA/NIGHTMARES Penicillins [PCN] Allergy (Intermediate, Verified 02/16/24 09:28) RASH tramadol [TRAMADOL] Allergy (Intermediate, Verified 02/16/24 09:28) ITCHING acetaminophen [Percocet] Allergy (Unknown, Verified 02/16/24 09:28) none codeine Allergy (Unknown, Verified 02/16/24 09:28) nightmares HPI asthma HPI Details 58-year-old lady, lifetime nonsmoker, wi th family history of emphysema in her mother and personal history of asthma for the last 10 years referred for pulmonary evaluation. Patient states that she intermittently experiences wheezing for which she is using albuterol MDI. Denies having recent pulmonary function testing. Patient does complain of multiple environmental allergies. She does have a dog as a pet. She denies recent acute exacerbations. 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 [facility] Medical History Primary osteoarthritis of left knee Constipation Contusion of left knee, sequela Muscle strain of right shoulder region Candidal intertrigo Meniere's disease Memory impairment Arthritis Fibromyalgia Diabetic acidosis, type I Obesity (BMI 30-39.9) Depression Anxiety Insomnia Iron deficiency Vitamin D deficiency Osteoarthrosis GERD without esophagitis Allergic rhinitis Pure hypercholesterolemia Diabetes mellitus Benign essential hypertension Fibromyalgia Asthma Obesity Dyslipidemia Hypertension half-way (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 Diabetic nephropathy associated with type 2 diabetes mellitus Diabetes type 2, uncontrolled Surgical History Hx of hernia repair History of loop electrical excision procedure (LEEP) Family History Father Diabetes Mother No problems noted. Maternal Grandmother Breast cancer Social History Housing: Apartment Alcohol intake: never Patient Tobacco Use Status: Never used Tobacco e-Cigarette/Vaping Use: Never Used Second Hand Smoke Exposure: Yes service: No Current occupational status: disabled Cognitive needs: Yes (cane) Hearing needs: No Vision needs: Yes (glasses) Female Reproductive History Menstrual Age of Menarche: 10 Review of Systems Const Denies daytime sleepiness, Denies excessive sweating, Denies fatigue, Denies fever(s), Denies lethargy, Denies malaise, Denies night sweats, Denies snoring and Denies weight loss Eyes Denies blurry vision and Denies itchy eyes ENT Denies nasal congestion, Denies post nasal drip, Denies sinus pain, Denies sinus pressure and Denies other ( Thrush) Card Denies chest pain, Denies pedal edema, Denies dyspnea, Denies orthopnea and Denies paroxysmal nocturnal dyspnea Resp Denies cough, Denies hemoptysis, Denies excessive phlegm production, Denies dyspnea, Denies snoring and Reports wheezing GI Denies abdominal pain and Denies heartburn Musc Denies myalgias, Denies arthralgias and Denies joint swelling Skin/Breast Denies rash Neuro Denies memory loss and Denies seizure-like activity Psych Denies abnormal sleep pattern, Denies anxiety and Denies memory loss Endo Denies excessive sweating, Denies fatigue and Denies heat intolerance Jerson/Lymph Denies easy bruising Aller/Immun Denies itchy eyes, Denies seasonal rhinorrhea and Reports wheezing Physical Exam Vital Signs: Last Vital Signs Pulse 79 02/16/24 09:24 BP 122/78 02/16/24 09:24 Pulse Ox 96 02/16/24 09:24 Oxygen Delivery Method Room Air 02/16/24 09:24 BMI result Body Mass Index 35.4 Const General: no acute distress and alert Nutritional Appearance: obese Orientation/consciousness: Other orientation findings ( oriented) HEENT Head: Yes atraumatic Eyes General: appearance normal, both eyes and all related structures Sclerae: sclerae normal EOM: EOMs intact bilaterally Neck Neck: Yes supple Lymphatic: no lymphadenopathy noted Resp Effort & Inspection: normal respiratory effort and no use of accessory muscles Auscultation: clear to auscultation bilaterally Cardio Rate: regular rate Rhythm: regular rhythm Heart sounds: no gallops, no murmurs and no rubs Skin General skin exam: other ( warm) Extrem General: No clubbing, No cyanosis and No edema Assessment & Plan Assessment & Plan (1) Asthma: Code(s): J45.909 - Unspecified asthma, uncomplicated Qualifiers: Asthma severity: moderate Asthma persistence: persistent Asthma complication type: uncomplicated Qualified Code(s): J45.40 - Moderate persistent asthma, uncomplicated Plan: Asthma of unclear severity suboptimally controlled on albuterol MDI. Will obtain full PFT and start on Breo. Will obtain chest x-ray. (2) Environmental allergies: Code(s): Z91.09 - Other allergy status, other than to drugs and biological substances Plan: Will obtain IgE level, CBC with differential, and RAST panel for further evaluation. Orders: Orders PFT pulmonary function test Today J45.40 - Moderate persistent asthma, uncomplicated XR chest 2V Today J45.40 - Moderate persistent asthma, uncomplicated Resp Allergy Profile Region I Today J45.40 - Moderate persistent asthma, uncomplicated Complete Blood Count Auto Diff Today J45.40 - Moderate persistent asthma, uncomplicated Medications: New fluticasone furoate-vilanterol 200-25 mcg/dose (Breo Ellipta) 1 inh inhalation DAILY 30 days 1 ea 6RF J45.40 - Moderate persistent asthma, uncomplicated Coding Level of Care Code New Pt Level 4 (72267) Diagnoses Moderate persistent asthma without complication J45.40 Asthma severity: moderate Asthma persistence: persistent Asthma complication type: uncomplicated Environmental allergies Z91.09
== END 2024-02-16 09:55 | disposition home or self-care (01) ==
PROVIDERS: PCP Internal Medicine; Visit Provider Internal Medicine Pulmonary Disease
DX: J45.40 Moderate persistent asthma, uncomplicated (principal); Z91.09 Other allergy status, other than to drugs and biological substances
CPT/HCPCS: 99204

== ENCOUNTER 2024-02-16 08:47 | Outpatient (REF) | payer OTHER, SELFPAY ==
--- NOTE | ~2024-02-16 | XR_ITS ---
EXAMINATION: XR CHEST CLINICAL INFORMATION: Moderate persistent asthma uncomplicated. COMPARISON: 12/08/2020 TECHNIQUE: 2 views of the chest were obtained. FINDINGS: There is no gross pneumothorax. Redemonstration of a 4 mm nodule overlying the left upper lung present dating back to October 23, 2012 exam. Cardiac silhouette borderline enlarged. No new focal consolidation to suggest pneumonia. No pleural effusion. Degenerative changes in the thoracic spine. XR/XR chest 2V IMPRESSION: No evidence of pneumonia.
[2024-02-16 10:22] LABS: MANUAL DIFF FLAG NO
[2024-02-16 10:42] LABS: Basophils Percent Auto 0.4 % (0-2); Eosinophils Absolute Auto 0.1 X10*3/uL (0.0-0.4); Eosinophils Percent Auto 1.1 % (0-4); Hematocrit 44.8 % (37.0-47.0); Hemoglobin 14.5 g/dl (12.0-16.0); Imm Gran Abs Auto 0.03 X10*3/uL (0.00-0.03); Imm Gran Pct Auto 0.3 % (0.0-0.4); Lymphocytes Percent Auto 32.2 % (20-40); Mean Corpuscular HGB Conc 32.4 g/dl (31.0-35.0); Mean Corpuscular Hemoglobin 25.8 pg (27.0-33.0); Mean Corpuscular Volume 79.9 fL (80.0-98.0); Mean Platelet Volume 10.3 fL (9.4-12.3); Monocytes Absolute Auto 0.6 X10*3/uL (0.1-1.2); Monocytes Percent Auto 6.7 % (2-11); Neutrophils Absolute Auto 5.6 x10*3/uL (2.0-8.3); Neutrophils Percent Auto 59.3 % (45-73); Platelet Count 262 X10*3/uL (160-400); Red Blood Count 5.61 X10*6/uL (4.20-5.50); Red Cell Distribution Width 14.6 % (11.0-16.0); White Blood Count 9.4 X10*3/uL (4.8-10.8)
[2024-02-17 23:33] LABS: Class Alternaria alternata 0; Class Aspergillus fumigatus 0; Class Bermuda Grass 0; Class Birch 3; Class Cat Dander 0/1; Class Cladosporium herbarum 0; Class Cockroach 1; Class Common Ragweed 0; Class Cottonwood 0; Class Derm. pterony 0; Class Dermatophagoides farinae 0; Class Dog Dander 0/1; Class Elm 0; Class Maple Box Elder 0/1; Class Mountain Cedar 0/1; Class Mouse Urine Protein 0; Class Mugwort 0; Class Oak 2; Class Penicillium crysogenum 0; Class Rough Pigweed 0; Class Sheep Sorrel 0; Class Sycamore 0; Class Timothy Grass 0; Class Walnut Tree 0; Class White Ash 0; Class White Mulberry 0; D001 IgE D pteronyssinus <0.10 kU/L; D002 - IgE D farinae <0.10 kU/L; E072-IgE Mouse Urine <0.10 kU/L; G002 IgE Bermuda Grass <0.10 kU/L; G006 - IgE Timothy Grass <0.10 kU/L; I006-IgE Cockroach, German 0.42 kU/L; Immunoglobulin E 213 kU/L (<OR=114); M001 IgE Penicillium chrysogen <0.10 kU/L; M002 - IgE Cladosporium herbar <0.10 kU/L; M003 - IgE Aspergillus fumigat <0.10 kU/L; M006 - IgE Alternaria alternat <0.10 kU/L; T001 IgE Maple/Box Elder 0.23 kU/L; T003 IgE Common Silver Birch 4.34 kU/L; T007 - IgE Oak, White 3.19 kU/L; T008 IgE Elm, American <0.10 kU/L; T010 - IgE Walnut <0.10 kU/L; T011 - IgE Maple Leaf Sycamore <0.10 kU/L; T014 - IgE Cottonwood <0.10 kU/L; T015 - IgE Ash, White <0.10 kU/L; T070 - IgE White Mulberry <0.10 kU/L; W001 - IgE Ragweed, Short <0.10 kU/L; W006 - IgE Mugwort <0.10 kU/L; W014 IgE Pigweed, Common <0.10 kU/L; W018 IgE Sheep Sorrel <0.10 kU/L
== END 2024-02-16 08:48 | disposition home or self-care (01) ==
LOC: HO.XRAY 08:47
PROVIDERS: PCP Internal Medicine; Visit Provider Internal Medicine Pulmonary Disease
DX: J45.40 Moderate persistent asthma, uncomplicated (principal); Z91.09 Other allergy status, other than to drugs and biological substances
CPT/HCPCS: 36415; 71046; 82785; 85025; 86003; 99202

== ENCOUNTER 2024-03-02 13:02 | Outpatient (REF) | payer OTHER, SELFPAY ==
[2024-03-02 09:05] VITALS: PULSE 68; RESP 16; O2SAT 96
--- NOTE | 2024-03-02 14:32 | PFT_ITS ---
Indication: Asthma Spirometry [FEV1 to FVC 82%; FEV1 2.13 L; FVC 2.61 L. no significant response to bronchodilators noted.] Lung Volumes [The patient had difficulty performing the lung volume maneuvers and therefore data could not be collected] Diffusion Capacity [The patient had difficulty performing the maneuvers therefore data was not collected] Comparisons [None] Interpretation [No obstructive ventilatory defects. No significant response to the bronchodilators noted. Normal maximum voluntary ventilation.] MTDD
== END 2024-03-02 13:03 | disposition home or self-care (01) ==
LOC: HO.RESP 13:02
PROVIDERS: PCP Internal Medicine; Visit Provider Internal Medicine Pulmonary Disease
DX: J45.40 Moderate persistent asthma, uncomplicated (principal)
CPT/HCPCS: 94010; 94640; 94727; 94729

== ENCOUNTER → 2024-03-02 14:32 | Outpatient (BNV) | payer OTHER, SELFPAY | PROVIDERS: PCP Internal Medicine; Visit Provider Hospitalist | DX: J45.40 Moderate persistent asthma, uncomplicated (principal) | CPT/HCPCS: 94060; 94727; 94729 ==

== ENCOUNTER 2024-03-16 12:27 | Outpatient (AMB) | payer OTHER, SELFPAY ==
--- NOTE | 2024-03-16 12:55 | A.OFFVIS_ITS ---
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 Infantry Senior Sergeant Language: Asbestos Shingle Inspector Name: Ritika [facility] Information Interpreted: non-clinical & clinical Accompanied by: Self / Same As Patient Allergies egg [EGG] Allergy (Intermediate, Verified 02/16/24 09:28) VOMITING oxycodone [OXYCODONE] Allergy (Intermediate, Verified 02/16/24 09:28) NAUSEA/NIGHTMARES Penicillins [PCN] Allergy (Intermediate, Verified 02/16/24 09:28) RASH tramadol [TRAMADOL] Allergy (Intermediate, Verified 02/16/24 09:28) ITCHING acetaminophen [Percocet] Allergy (Unknown, Verified 02/16/24 09:28) none codeine Allergy (Unknown, Verified 02/16/24:) nightmares HPI Comprehensive Diabetes Asmnt Most Recent Diabetes Results: Microalb/Creat Ratio 15.9 ug/mg cr (<30) 02/09/24 Cholesterol 209 mg/dL (<200) H 02/09/24 HDL Cholesterol 51 mg/dL (>40) 02/09/24 Triglycerides 202 mg/dL (<150) H 02/09/24 Creatinine 0.63 mg/dL (0.5-1.4) 02/09/24 Blood Urea Nitrogen 13 mg/dL (9-16) 02/09/24 Sodium 138 mmol/L (135-145) 02/09/24 Potassium 3.8 mmol/L (3.3-5.1) 02/09/24 Chloride 106 mmol/L (96-108) 02/09/24 Carbon Dioxide 23 mmol/L (22-29) 02/09/24 Calcium 9.5 mg/dL (8.4-10.2) 02/09/24 AST 19 U/L (5-31) 02/09/24 ALT 17 U/L (0-31) 02/09/24 Total Protein 7.2 g/dL (6.5-8.0) 02/09/24 Albumin 4.0 g/dL (3.5-5.0) 02/09/24 [facility] Medical History Primary osteoarthritis of left knee Constipation Contusion of left knee, sequela Muscle strain of right shoulder region Candidal intertrigo Meniere's disease Memory impairment Arthritis Fibromyalgia Diabetic acidosis, type I Obesity (BMI 30-39.9) Depression Anxiety Insomnia Iron deficiency Vitamin D deficiency Osteoarthrosis GERD without esophagitis Allergic rhinitis Pure hypercholesterolemia Diabetes mellitus Benign essential hypertension Fibromyalgia Asthma Obesity Dyslipidemia Hypertension 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 Maternal Grandmother Breast cancer Social History Housing: Apartment Alcohol intake: never Patient Tobacco Use Status: Never used Tobacco e-Cigarette/Vaping Use: Never Used Second Hand Smoke Exposure: Yes service: No Current occupational status: disabled Cognitive needs: Yes (cane) Hearing needs: No Vision needs: Yes (glasses) Female Reproductive History Menstrual Age of Menarche: 10 Assessment & Plan Assessment & Plan (1) Diabetes mellitus: Code(s): E11.9 - Type 2 diabetes mellitus without complications Qualifiers: Diabetes mellitus type: type 2 Diabetes mellitus long term care administrator insulin use: with group home use Diabetes mellitus complication status: without complication Qualified Code(s): E11.9 - Type 2 diabetes mellitus without complications; Z79.4 - 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 Discussed lag time between finger stick and sensor data.? Instructed patient she should always keep blood glucometer for backup testing if needed Reviewed delay of CGM from fingersticks Reminded pt that if symptoms do not match sensor still needs to check fingersticks. Patient Instructions: Instrucciones para el paciente: CGM proporciona informaci?n sobre el control de la glucosa en jazzy a lo annabella del d?a, incluidas la hiperglucemia y la hipoglucemia. Contin?e controlando la glucosa en jazzy seg?n las instrucciones. Siga las pautas de nutrici?n proporcionadas. Informe cualquier molestia de inmediato al proveedor de atenci?n m?dica. Mantente omar hidratado. Puede ba?arse, ducharse, nadar y hacer ejercicio mien tras usa el sensor de glucosa. No sumerja el sensor de glucosa en agua maximiliano m?s de 30 minutos. Retire el sensor para destiny resonancia magn?ofelia o destiny tomograf?a computarizada. Evite la m?quina de danilo X en los aeropuertos: retire el sensor o solicite la varita Coding Level of Care Code Est Pt Level 1 (22254) Diagnoses Type 2 diabetes mellitus without complication, with long-term current use of insulin E11.9; Z79.4 Diabetes mellitus type: type 2 Diabetes mellitus long term care administrator insulin use: with group home use Diabetes mellitus complication status: without complication
== END 2024-03-16 13:01 | disposition home or self-care (01) ==
PROVIDERS: PCP Internal Medicine; Visit Provider Registered Nurse Diabetes Educator
DX: E11.9 Type 2 diabetes mellitus without complications (principal); Z79.4 Long term (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

== ENCOUNTER → 2024-03-16 12:27 | Outpatient (BNVA) | payer OTHER, SELFPAY | PROVIDERS: PCP Internal Medicine; Visit Provider Registered Nurse Diabetes Educator | DX: E11.10 Type 2 diabetes mellitus with ketoacidosis without coma (principal); E11.65 Type 2 diabetes mellitus with hyperglycemia; E11.21 Type 2 diabetes mellitus with diabetic nephropathy; Z96.41 Presence of insulin pump (external) (internal); Z79.4 Long term (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; Z46.81 Encounter for fitting and adjustment of insulin pump | CPT/HCPCS: 99211 ==

== ENCOUNTER 2024-03-17 10:27 | Outpatient (AMB) | payer OTHER, SELFPAY ==
[2024-03-17 10:28] VITALS: BP 118/79; PULSE 88; O2SAT 98; BMI 37.8
--- NOTE | 2024-03-17 10:28 | MHC.OFFVIS ---
Vital Signs 03/17/24 10:28 Height 5 ft 5 in Weight 227 lb 1.218 oz BMI 37.8 BP 118/79 Blood Pressure Location Rt brachial Position Sitting Pulse 88 Pulse Source Doppler Pulse Oximetry (%) 98 Oxygen Delivery Method Room Air Intake Visit Reasons: Asthma Locker Room Manager Required: Yes Locker Room Manager Name: Jennifer Nickerson C.L.Sharon Allergies egg [EGG] Allergy (Intermediate, Verified 03/17/24 10:34) VOMITING oxycodone [OXYCODONE] Allergy (Intermediate, Verified 03/17/24 10:34) NAUSEA/NIGHTMARES Penicillins [PCN] Allergy (Intermediate, Verified 03/17/24 10:34) RASH tramadol [TRAMADOL] Allergy (Intermediate, Verified 03/17/24 10:34) ITCHING acetaminophen [Percocet] Allergy (Unknown, Verified 03/17/24 10:34) none codeine Allergy (Unknown, Verified 03/17/24 10:34) nightmares HPI HPI Asthma: Details: 58-year-old lady, lifetime nonsmoker, with family history of emphysema in her mother and personal history of asthma for the last 10 years referred for pulmonary evaluation. Patient states that she intermittently experiences wheezing for which she is using albuterol MDI. Denies having recent pulmonary function testing. Patient does complain of multiple environmental allergies. She does have a dog as a pet. She denies recent acute exacerbations. 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 After the last office visit she was started on Breo with significant improvement in her symptoms. She also has completed her immunologic testing showing allergies to trees, cats, and dogs. [facility] Medical History Primary osteoarthritis of left knee Constipation Contusion of left knee, sequela Muscle strain of right shoulder region Candidal intertrigo Meniere's disease Memory impairment Arthritis Fibromyalgia Diabetic acidosis, type I Obesity (BMI 30-39.9) Depression Anxiety Insomnia Iron deficiency Vitamin D deficiency Osteoarthrosis GERD without esophagitis Allergic rhinitis Pure hypercholesterolemia Diabetes mellitus Benign essential hypertension Fibromyalgia Asthma Obesity Dyslipidemia Hypertension assisted (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 Diabetic nephropathy associated with type 2 diabetes mellitus Diabetes type 2, uncontrolled Surgical History Hx of hernia repair History of loop electrical excision procedure (LEEP) Family History Father Diabetes Mother No problems noted. Maternal Grandmother Breast cancer Social History Housing: Apartment Alcohol intake: never Patient Tobacco Use Status: Never used Tobacco e-Cigarette/Vaping Use: Never Used Second Hand Smoke Exposure: Yes service: No Current occupational status: disabled Cognitive needs: Yes (cane) Hearing needs: No Vision needs: Yes (glasses) Female Reproductive History Menstrual Age of Menarche: 10 Review of Systems Const Denies daytime sleepiness, Denies excessive sweating, Denies fatigue, Denies fever(s), Denies lethargy, Denies malaise, Denies night sweats, Denies snoring and Denies weight loss Eyes Denies blurry vision and Denies itchy eyes ENT Denies nasal congestion, Denies post nasal drip, Denies sinus pain, Denies sinus pressure and Denies other ( Thrush) Card Denies chest pain, Denies pedal edema, Denies dyspnea, Denies orthopnea and Denies paroxysmal nocturnal dyspnea Resp Denies cough, Denies hemoptysis, Denies excessive phlegm production, Denies dyspnea, Denies snoring and Denies wheezing GI Denies abdominal pain and Denies heartburn Musc Denies myalgias, Denies arthralgias and Denies joint swelling Skin/Breast Denies rash Neuro Denies memory loss and Denies seizure-like activity Psych Denies abnormal sleep pattern, Denies anxiety and Denies memory loss Endo Denies excessive sweating, Denies fatigue and Denies heat intolerance Jerson/Lymph Denies easy bruising Aller/Immun Denies itchy eyes, Denies seasonal rhinorrhea and Denies wheezing Physical Exam Vital Signs: Last Vital Signs Pulse 88 03/17/24 10:28 BP 118/79 03/17/24 10:28 Pulse Ox 98 03/17/24 10:28 Oxygen Delivery Method Room Air 03/17/24 10:28 BMI result Body Mass Index 37.8 Const General: no acute distress and alert Nutritional Appearance: not obese Orientation/consciousness: Other orientation findings ( oriented) HEENT Head: Yes atraumatic Eyes General: appearance normal, both eyes and all related structures Sclerae: sclerae normal EOM: EOMs intact bilaterally Neck Neck: Yes supple Lymphatic: no lymphadenopathy noted Resp Effort & Inspection: normal respiratory effort and no use of accessory muscles Auscultation: clear to auscultation bilaterally Cardio Rate: regular rate Rhythm: regular rhythm Heart sounds: no gallops, no murmurs and no rubs Skin General skin exam: other ( warm) Extrem General: No clubbing, No cyanosis and No edema Assessment & Plan Assessment & Plan (1) Asthma: Code(s): J45.909 - Unspecified asthma, uncomplicated Category: Medical Qualifiers: Asthma severity: moderate Asthma persistence: persistent Asthma complication type: uncomplicated Qualified Code(s): J45.40 - Moderate persistent asthma, uncomplicated Plan: Significantly improved control on Breo. Continue Breo, albuterol MDI/nebs. (2) Environmental allergies: Code(s): Z91.09 - Other allergy status, other than to drugs and biological substances Category: Medical Plan: Results for immunologic testing reviewed. Patient does have underlying immunologic component to her asthma symptoms, will qualify for Xolair if symptoms stop being controlled on inhaled corticosteroid. At this time will continue on Singulair and Claritin. Coding Level of Care Code Est Pt Level 4 (08015) Diagnoses Moderate persistent asthma without complication J45.40 Asthma severity: moderate Asthma persistence: persistent Asthma complication type: uncomplicated Environmental allergies Z91.09
== END 2024-03-17 10:44 | disposition home or self-care (01) ==
PROVIDERS: PCP Internal Medicine; Visit Provider Internal Medicine Pulmonary Disease
DX: J45.40 Moderate persistent asthma, uncomplicated (principal); Z91.09 Other allergy status, other than to drugs and biological substances
CPT/HCPCS: 99214

== ENCOUNTER → 2024-03-17 10:27 | Outpatient (BNVA) | payer OTHER, SELFPAY | PROVIDERS: PCP Internal Medicine; Visit Provider Internal Medicine Pulmonary Disease | DX: J45.40 Moderate persistent asthma, uncomplicated (principal); Z91.09 Other allergy status, other than to drugs and biological substances | CPT/HCPCS: 99212 ==

== ENCOUNTER 2024-04-04 21:13 | Inpatient (IN) | payer OTHER, SELFPAY ==
--- NOTE | ~2024-04-04 | MR_ITS ---
EXAMINATION: MR BRAIN WITHOUT CONTRAST CLINICAL INFORMATION: Transient ischemic attack. Cognitively impaired. COMPARISON: Brain MRI from 10/06/2022. TECHNIQUE: MRI of the brain was obtained using routine sequences without contrast. FINDINGS: No focal restricted diffusion is demonstrated to suggest acute or subacute cerebral ischemia. No evidence of acute or chronic hemorrhagic products on heme-sensitive imaging. Scattered periventricular and deep white matter T2 FLAIR hyperintensities consistent with mild underlying microangiopathy. The ventricles are normal in morphology and size. No abnormal mass effect. No midline shift. Normal appearance of the pituitary gland. Normal positioning of the cerebellar tonsils. Normal arterial and venous vascular flow voids are present. Normal, homogeneous marrow signal. Mild mucosal thickening of the paranasal sinuses. No signal abnormalities within the mastoids. MR/MR head/brain wo con IMPRESSION: 1. No acute intracranial abnormalities. 2. Mild underlying microangiopathy.
[2024-04-04 21:16] VITALS: BP 153/79; PULSE 68; RESP 18; TEMP 36.6; O2SAT 98; BMI 35.6
[2024-04-04 21:46] LABS: Glucose, Whole Blood 127 mg/dL (60-115)
[2024-04-04 22:02] VITALS: BP 158/81; PULSE 73; RESP 18; TEMP 36.4; O2SAT 96
[2024-04-04 22:29] LABS: MANUAL DIFF FLAG NO
[2024-04-04 22:34] LABS: Basophils Percent Auto 0.4 % (0-2); Eosinophils Absolute Auto 0.1 X10*3/uL (0.0-0.4); Hematocrit 41.5 % (37.0-47.0); Hemoglobin 13.9 g/dl (12.0-16.0); Imm Gran Abs Auto 0.03 X10*3/uL (0.00-0.03); Imm Gran Pct Auto 0.3 % (0.0-0.4); Lymphocytes Percent Auto 40.2 % (20-40); Mean Corpuscular HGB Conc 33.5 g/dl (31.0-35.0); Mean Corpuscular Hemoglobin 26.6 pg (27.0-33.0); Mean Corpuscular Volume 79.3 fL (80.0-98.0); Mean Platelet Volume 10.1 fL (9.4-12.3); Monocytes Absolute Auto 0.7 X10*3/uL (0.1-1.2); Monocytes Percent Auto 7.4 % (2-11); Neutrophils Absolute Auto 5.1 x10*3/uL (2.0-8.3); Neutrophils Percent Auto 50.7 % (45-73); Platelet Count 215 X10*3/uL (160-400); Red Blood Count 5.23 X10*6/uL (4.20-5.50)
[2024-04-04 22:36] LABS: Appearance Urine Clear; Color Urine Yellow; Glucose Urine UA >=1000 mg/dL (Negative); Leukocyte Esterase Urine Negative (Negative); Nitrite Urine Negative (Negative); PH 5.5 (5.0-9.0); Specific Gravity - Urine >= 1.030 (1.005-1.025); UMIC TRIGGER UA YES; Urine Blood Negative (Negative); Urine Ketones Trace mg/dL (Negative); Urine Protein Negative (Neg-Trace)
[2024-04-04 22:44] LABS: Amphetamine Screen Urine Not Detected (Not Detect); Barbiturates, Urine Not Detected (Not Detect); Benzodiazepines Screen Urine Not Detected (Not Detect); Buprenorphine Scr Not Detected (Not Detect); Cannabinoid Screen Urine Not Detected (Not Detect); Cocaine Screen Urine Not Detected (Not Detect); Fentanyl, urine Not Detected (Not Detect); Methadone Screen, Urine Not Detected (Not Detect); Opiate Screen Urine Not Detected (Not Detect); Oxycodone Screen Urine Not Detected (Not Detect); Phencyclidine Screen Urine Not Detected (Not Detect)
[2024-04-04 22:49] LABS: Acetaminophen LAB < 3 mcg/mL (<30); Salicylate < 5.0 mg/dL (15-30)
[2024-04-04 22:53] LABS: Alanine Aminotransferase 14 U/L (0-31); Albumin Level 4.2 g/dL (3.5-5.0); Alkaline Phosphatase 95 U/L (39-117); Anion Gap 17 (12-20); Aspartate Amino Transferase 17 U/L (5-31); Bilirubin Total 0.6 mg/dL (0.0-1.0); Blood Urea Nitrogen 14 mg/dL (9-16); Calcium 9.7 mg/dL (8.4-10.2); Carbon Dioxide 22 mmol/L (22-29); Chloride 104 mmol/L (96-108); Estimated Glomerular Filt Rate > 60; Ethanol < 10 mg/dL; Glucose Random 138 mg/dL (60-115); Potassium 3.3 mmol/L (3.3-5.1); Sodium 140 mmol/L (135-145); Total Protein 7.1 g/dL (6.5-8.0)
[2024-04-04 23:18] LABS: Bacteria Urine None Seen (None Seen); Hyaline Casts Urine 0-2 /LPF (0-2); RBC Urine 0-2 /HPF (0-2); Squamous Epithelial Cell Urine 0-2 /HPF (0-2); WBC Clumps Urine Present
--- NOTE | 2024-04-04 23:20 | ED_ITS ---
HPI - General Adult General Chief complaint: Psychiatric Symptoms Stated complaint: SI Time Seen by Provider: 04/04/24 22:09 Source: patient, RN notes reviewed, old records reviewed and environmental attorney Mode of arrival: ambulatory Limitations: language barrier History of Present Illness ED Provider: Gurpreet HPI narrative: 58-year-old female presents for evaluation of depression and anxiety. Patient reports he for many years she has had bad thoughts. She states that she is having suicidal thoughts but without a plan She has never tried to harm herself in the past She reports that she can not sleep at night because ?my brain just will not turn off. ? Denies any somatic complaints No other complaints or concerns at this time Related Data Home Medications ?Medication ?Instructions ?Recorded ?Confirmed aspirin 81 mg chewable tablet 1 tab PO DAILY 04/04/24 04/04/24 atorvastatin 40 mg tablet 40 mg PO BEDTIME 04/04/24 04/04/24 bupropion HCl 150 mg 24 hr tablet, 150 mg PO DAILY 04/04/24 04/04/24 extended release buspirone 10 mg tablet 10 mg PO BID anxiety 04/04/24 04/04/24 empagliflozin 25 mg tablet 25 mg PO QAM 04/04/24 04/04/24 (Jardiance) metformin 1,000 mg tablet 1,000 mg PO BID 04/04/24 04/04/24 montelukast 10 mg tablet 10 mg PO DAILY 04/04/24 04/04/24 sertraline 100 mg tablet 100 mg PO DAILY 04/04/24 04/04/24 Previous Rx's ?Medication ?Instructions ?Recorded omeprazole 20 mg capsule,delayed 20 mg PO DAILY 90 days #90 caps 04/15/21 release cholecalciferol (vitamin D3) 50 50 mcg PO DAILY #90 caps 06/10/23 mcg (2,000 unit) capsule (Vitamin D3) albuterol sulfate 90 mcg/actuation 2 puff inhalation Q6-8H PRN 03/04/24 aerosol inhaler shortness of breath or wheezing 90 days #3 inhalers Allergies Allergy/AdvReac Type Severity Reaction Status Date / Time egg [EGG] Allergy Intermediate VOMITING Verified 04/04/24 21:25 oxycodone [OXYCODONE] Allergy Intermediate NAUSEA/NIGH Verified 04/04/24 21:25 TMARES Penicillins [PCN] Allergy Intermediate RASH Verified 04/04/24 21:25 tramadol [TRAMADOL] Allergy Intermediate ITCHING Verified 04/04/24 21:25 acetaminophen [Percocet] Allergy Unknown none Verified 04/04/24 21:25 codeine Allergy Unknown nightmares Verified 04/04/24 21:25 Review of Systems 2 Constitutional: Constitutional: Denies body ache(s), Denies chills, Denies fever(s) and Denies headache(s) Eyes: Eyes: Denies blurry vision ENT: Denies headache(s) and Denies sore throat Cardiovascular: Cardiovascular: Denies chest pain and Denies dyspnea Respiratory: Respiratory: Denies cough and Denies dyspnea Gastrointestinal: Gastrointestinal: Denies abdominal pain, Denies nausea and Denies vomiting Musculoskeletal: Musculoskeletal: Denies back pain Integumentary/Breasts: Skin/Breast: Denies rash Neurologic: Denies headache(s) Psychiatric: Psychiatric: Reports anxiety, Reports depression and Reports suicidal ideation [facility] Past Medical History Medical History Primary osteoarthritis of left knee Constipation Contusion of left knee, sequela Muscle strain of right shoulder region Candidal intertrigo Meniere's disease Memory impairment Arthritis Fibromyalgia Diabetic acidosis, type I Obesity (BMI 30-39.9) Depression Anxiety Insomnia Iron deficiency Vitamin D deficiency Osteoarthrosis GERD without esophagitis Allergic rhinitis Pure hypercholesterolemia Diabetes mellitus Benign essential hypertension Fibromyalgia Asthma Obesity Dyslipidemia Hypertension 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 Maternal Grandmother Breast cancer Social History Social History Housing: Apartment Alcohol intake: never Patient Tobacco Use Status: Never used Tobacco Smoked in Last 30 Days: No e-Cigarette/Vaping Use: Never Used Second Hand Smoke Exposure: Yes Use of substances other than those prescribed or required for medical reasons: No Advance Directives: No Advance Directives Information Provided: No Do you have a plan to hurt others: No Plan Patient : No service: No Current occupational status: disabled Cognitive needs: Yes (cane) Hearing needs: No Vision needs: Yes (glasses) Physical Exam ED Vital Signs: Vital Signs - 24 hr 04/04/24 21:16 04/04/24 22:02 04/05/24 07:21 Temperature 97.9 F 97.6 F 98.4 F Pulse Rate 68 73 71 Respiratory Rate 18 18 18 Blood Pressure 153/79 H 158/81 H 115/75 Pulse Oximetry 98 96 98 Oxygen Delivery Method Room Air Room Air Room Air BMI result Body Mass Index 35.6 Const General: healthy appearing, comfortable, no acute distress, alert and awake Nutritional Appearance: well nourished Orientation/consciousness: patient oriented x3 HENMT Head: Yes normocephalic and Yes atraumatic Eyes Eyelids: Yes eyelids normal Conjunctivae: conjunctivae normal Sclerae: sclerae normal Corneas: corneas normal Pupils: Equal, round and reactive pupils present EOM: EOMs intact bilaterally Neck Neck: Yes full ROM Resp Effort & Inspection: normal respiratory effort, able to speak in complete sentences and not labored Skin General skin exam: elasticity normal Neuro General: patient oriented x3 Cranial nerves: Yes Equal, round and reactive pupils present and Yes Bilaterally intact EOM present Cognition (Neuro): normal cognition Extrem Other: Moving all extremities well without any obvious deformities Course Reevaluation(s) Reevaluation #1: Patient is seen by the care team. She will be a bed search for inpatient psychiatric care. She has on a section 12 Time: 00:29 Reevaluation #2: Physician observation continued. VS stable, S12 inpatient bed search, UA + WBC clumps noted will place on ceftin x 10 days for UTI but concern for some possible renal involvement given clumps. will continue to monitor. Medical Decision Making Medical Decision Making [facility] Narrative: 58 old female presents for evaluation depression with suicidal ideation. Plan medical clearance and care team evaluation Differential Diagnosis Differential Diagnoses: The differential diagnosis associated with the presentation includes Depression Anxiety Bipolar disorder Suicidal ideation Lab Data [facility] Lab Attestation statement: I reviewed the patient's lab results. No leukocytosis or anemia. Normal platelet count. No electrolyte abnormalities. Normal renal function 04/04/24 22:19 04/04/24 22:19 Labs: Lab Results 05/04/04/24 04/05/24 Range/Units 21:42 22:19 07:16 WBC 10.0 (4.8-10.8) X10*3/uL RBC 5.23 (4.20-5.50) X10*6/uL Hgb 13.9 (12.0-16.0) g/dl Hct 41.5 (37.0-47.0) % MCV 79.3 L (80.0-98.0) fL MCH 26.6 L (27.0-33.0) pg MCHC 33.5 (31.0-35.0) g/dl RDW 14.0 (11.0-16.0) % Plt Count 215 (160-400) X10*3/uL MPV 10.1 (9.4-12.3) fL Immature Gran % (Auto) 0.3 (0.0-0.4) % Neut % (Auto) 50.7 (45-73) % Lymph % (Auto) 40.2 H (20-40) % [place] % (Auto) 7.4 (2-11) % Eos % (Auto) 1.0 (0-4) % Baso % (Auto) 0.4 (0-2) % Lymph # (Auto) 4.0 (1.2-4.9) X10*3/uL [place] # (Auto) 0.7 (0.1-1.2) X10*3/uL Eos # (Auto) 0.1 (0.0-0.4) X10*3/uL Baso # (Auto) 0.0 (0.0-0.2) X10*3/uL Abs Immat Gran (auto) 0.03 (0.00-0.03) X10*3/uL Absolute Neuts (auto) 5.1 (2.0-8.3) x10*3/uL Absolute Nucleated RBC 0.000 (0.0-0.012) X10*3/uL Nucleated RBC % (auto) 0.0 (0.0-0.2) /100WBC Sodium 140 (135-145) mmol/L Potassium 3.3 (3.3-5.1) mmol/L Chloride 104 (96-108) mmol/L Carbon Dioxide 22 (22-29) mmol/L Anion Gap 17 (12-20) BUN 14 (9-16) mg/dL Creatinine 0.69 (0.5-1.4) mg/dL Estim Creat Clear Calc 100.0 Estimated GFR > 60 POC Glucose 127 H 147 H (60-115) mg/dL Random Glucose 138 H (60-115) mg/dL Calcium 9.7 (8.4-10.2) mg/dL Total Bilirubin 0.6 (0.0-1.0) mg/dL AST 17 (5-31) U/L ALT 14 (0-31) U/L Alkaline Phosphatase 95 (39-117) U/L Total Protein 7.1 (6.5-8.0) g/dL Albumin 4.2 (3.5-5.0) g/dL Urine Color Yellow Urine Appearance Clear Urine pH 5.5 (5.0-9.0) Ur Specific [place] >= 1.030 H (1.005-1.025) Urine Protein Negative (Neg-Trace) mg/dL Urine Glucose (UA) >=1000 H (Negative) mg/dL Urine Ketones Trace (Negative) mg/dL Urine Blood Negative (Negative) Urine Nitrite Negative (Negative) Ur Leukocyte Esterase Negative (Negative) Urine RBC 0-2 (0-2) /HPF Urine WBC 11-20 H (0-5) /HPF Urine WBC Clumps Present Ur Squamous Epith Cells 0-2 (0-2) /HPF Urine Bacteria None Seen (None Seen) Hyaline Casts 0-2 (0-2) /LPF Salicylates < 5.0 L (15-30) mg/dL Urine Opiates Screen Not Detected (Not Detect) Ur Buprenorphine Scrn Not Detected (Not Detect) ng/mL Ur Oxycodone Screen Not Detected (Not Detect) ng/mL Urine Methadone Screen Not Detected (Not Detect) ng/mL Urine Fentanyl Screen Not Detected (Not Detect) Acetaminophen < 3 (<30) mcg/mL Ur Barbiturates Screen Not Detected (Not Detect) Ur Phencyclidine Scrn Not Detected (Not Detect) Ur Amphetamines Screen Not Detected (Not Detect) U Benzodiazepines Scrn Not Detected (Not Detect) Urine Cocaine Screen Not Detected (Not Detect) U Marijuana (THC) Screen Not Detected (Not Detect) Ethyl Alcohol < 10 mg/dL Discharge Plan Discharge Clinical Impression: Suicidal ideation, Acute UTI Depression Qualifiers: Depression Type: unspecified Qualified Code(s): F32.9 - Major depressive disorder, single episode, unspecified Patient Disposition: Still a Patient Prescriptions: No Action albuterol sulfate 90 mcg/actuation HFA aerosol inhaler 2 puff inhalation Q6-8H PRN (Reason: shortness of breath or wheezing) 90 Days Qty: 3 3RF sertraline 100 mg tablet 100 mg PO DAILY buspirone 10 mg tablet 10 mg PO BID bupropion HCl 150 mg tablet extended release 24 hr 150 mg PO DAILY atorvastatin 40 mg tablet 40 mg PO BEDTIME metformin 1,000 mg tablet 1,000 mg PO BID aspirin 81 mg tablet,chewable 1 tab PO DAILY montelukast 10 mg tablet 10 mg PO DAILY Jardiance 25 mg tablet 25 mg PO QAM omeprazole 20 mg capsule,delayed release(DR/EC) 20 mg PO DAILY 90 Days Qty: 90 3RF cholecalciferol (vitamin D3) [Vitamin D3] 50 mcg (2,000 unit) capsule 50 mcg PO DAILY Qty: 90 1RF Interventions: Morton-Suicide Risk Severity Scale Last Done: 04/05/24 05:53 Print Language: Slovenian
--- NOTE | 2024-04-05 | ECG_ITS ---
Test Reason : Check QT Blood Pressure : / mmHG Vent. Rate : 068 BPM Atrial Rate : 068 BPM P-R Int : 160 ms QRS Dur : 090 ms QT Int : 426 ms P-R-T Axes : -06 -03 042 degrees QTc Int : 452 ms Normal sinus rhythm Normal ECG When compared with ECG of 08-DEC-2020 09:56, No significant change was found Referred By: Arsenio Cleary Electronically Signed By:KAT NG
--- NOTE | 2024-04-05 05:49 | PC.NURSE ---
Patient was up whole night, refused medication to help her sleep, med rec completed based on pharmacy claim history, pending provider's approval, patient was assessed by care team, disposition is section 12 inpatient bed search, VSS, patient exhibits no behavior issues, but appears depressed, will continue to monitor
--- NOTE | 2024-04-05 07:04 | PC.NURSE ---
Assumed care of patient at 0645, patient appears to be sitting on bed in BH 1, respirations even and unlabored, no apparent distress noted. Patient offers no complaints to this RN. Continue plan of care for inpatient bedsearch
[2024-04-05 07:21] VITALS: BP 115/75; PULSE 71; RESP 18; TEMP 36.9; O2SAT 98
[2024-04-05 07:32] LABS: Glucose, Whole Blood 147 mg/dL (60-115)
[2024-04-05] MEDS: cefuroxime axetiL 250 MG TABLET PO ×2 (10:36→20:31)
--- NOTE | 2024-04-05 11:47 | HO.PSYADMNOT ---
HPI Date of Service: 04/05/24 Chief Complaint: SI Sources of Information: patient interviewed, chart reviewed and crisis/core team assessment reviewed HPI Subjective Notes: Bradley Warning and Conditional Voluntary Narrative: Ms. Higgins is a 58 year-old woman with hx of MDD who self [place] [facility] [place] increased depression and passive SI. In the ED, utox is negative. On the unit, Ms. Higgins reports that although she has suffered from depression for about 20 years and has been mostly in outpatient psychiatric treatment, recently she has been feeling more overwhelmed, frustrated and hopeless regarding her ability to parent her two adopted teenagers ages 15 and 16. She reports she has two other daughters in their 20's who are also adopted. She reports her adopted teens are refusing to go to school regularly. She reports she feels like they don't listen to her and she worries that their future may be compromised by their poor choices. She reports her daughter who is 15 is telling her that she will go with someone she met online but has never seen in [place]. She denies any plan or intent to harm herself. She reports she has passive wishes. She reports feeling anxious. She reports difficulty sleeping. She reports she needs help raising her teenagers but does not know where to start. She denies hx of VH/AH. No signs of tonio or hypomania. Pt also mentioned that a year and a half ago she had TIA and this has also contributed to memory/cognitive impairments along with increased depression. She has been seen outpatient by neurology [place] [facility] Past Psychiatric History: Inpatient: none OP: [facility] sees Liseth Harding, psych therapist and therapist Past medications : sertraline, wellbutrin, clonazepam(too sedating) Hx of suicide attempts: denies Medical Evaluation Reviewed: Yes [facility] Medical History Primary osteoarthritis of left knee Constipation Contusion of left knee, sequela Muscle strain of right shoulder region Candidal intertrigo Meniere's disease Memory impairment Arthritis Fibromyalgia Diabetic acidosis, type I Obesity (BMI 30-39.9) Depression Anxiety Insomnia Iron deficiency Vitamin D deficiency Osteoarthrosis GERD without esophagitis Allergic rhinitis Pure hypercholesterolemia Diabetes mellitus Benign essential hypertension Fibromyalgia Asthma Obesity Dyslipidemia Hypertension detention (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 Diabetic nephropathy associated with type 2 diabetes mellitus Diabetes type 2, uncontrolled Surgical History Hx of hernia repair History of loop electrical excision procedure (LEEP) Family History: denies Social History: Pt reports she was born in [place]. Never . She moved 23 years ago to [place]. Currently not working source of income is disability. Substance History: None Trauma History: reports losing family members Diagnostics Vital Signs (24Hr): Vital Signs - 24 hr 04/04/24 21:16 04/04/24 22:02 04/05/24 07:21 Temperature 97.9 F 97.6 F 98.4 F Pulse Rate 68 73 71 Respiratory Rate 18 18 18 Blood Pressure 153/79 H 158/81 H 115/75 Pulse Oximetry 98 96 98 Oxygen Delivery Method Room Air Room Air Room Air BMI result Body Mass Index 35.6 Labs 04/04/24 22:19 04/04/24 22:19 Labs: Laboratory Results - last 48 hr 04/04/24 04/04/24 04/05/24 21:42 22:19 07:16 WBC 10.0 RBC 5.23 Hgb 13.9 Hct 41.5 MCV 79.3 L MCH 26.6 L MCHC 33.5 RDW 14.0 Plt Count 215 MPV 10.1 Immature Gran % (Auto) 0.3 Neut % (Auto) 50.7 Lymph % (Auto) 40.2 H [place] % (Auto) 7.4 Eos % (Auto) 1.0 Baso % (Auto) 0.4 Lymph # (Auto) 4.0 [place] # (Auto) 0.7 Eos # (Auto) 0.1 Baso # (Auto) 0.0 Abs Immat Gran (auto) 0.03 Absolute Neuts (auto) 5.1 Absolute Nucleated RBC 0.000 Nucleated RBC % (auto) 0.0 Sodium 140 Potassium 3.3 Chloride 104 Carbon Dioxide 22 Anion Gap 17 BUN 14 Creatinine 0.69 Estim Creat Clear Calc 100.0 Estimated GFR > 60 POC Glucose 127 H 147 H Random Glucose 138 H Calcium 9.7 Total Bilirubin 0.6 AST 17 ALT 14 Alkaline Phosphatase 95 Total Protein 7.1 Albumin 4.2 Urine Color Yellow Urine Appearance Clear Urine pH 5.5 Ur Specific [place] >= 1.030 H Urine Protein Negative Urine Glucose (UA) >=1000 H Urine Ketones Trace Urine Blood Negative Urine Nitrite Negative Ur Leukocyte Esterase Negative Urine RBC 0-2 Urine WBC 11-20 H Urine WBC Clumps Present Ur Squamous Epith Cells 0-2 Urine Bacteria None Seen Hyaline Casts 0-2 Salicylates < 5.0 L Urine Opiates Screen Not Detected Ur Buprenorphine Scrn Not Detected Ur Oxycodone Screen Not Detected Urine Methadone Screen Not Detected Urine Fentanyl Screen Not Detected Acetaminophen < 3 Ur Barbiturates Screen Not Detected Ur Phencyclidine Scrn Not Detected Ur Amphetamines Screen Not Detected U Benzodiazepines Scrn Not Detected Urine Cocaine Screen Not Detected U Marijuana (THC) Screen Not Detected Ethyl Alcohol < 10 Meds/Allergies Meds Home Medications ?Medication ?Instructions ?Recorded ?Confirmed ?Type aspirin 81 mg chewable tablet 1 tab PO DAILY 04/04/24 04/04/24 History atorvastatin 40 mg tablet 40 mg PO BEDTIME 04/04/24 04/04/24 History bupropion HCl 150 mg 24 hr tablet, 150 mg PO DAILY 04/04/24 04/04/24 History extended release buspirone 10 mg tablet 10 mg PO BID anxiety 04/04/24 04/04/24 History empagliflozin 25 mg tablet 25 mg PO QAM 04/04/24 04/04/24 History (Jardiance) metformin 1,000 mg tablet 1,000 mg PO BID 04/04/24 04/04/24 History montelukast 10 mg tablet 10 mg PO DAILY 04/04/24 04/04/24 History sertraline 100 mg tablet 100 mg PO DAILY 04/04/24 04/04/24 History Allergies Allergies Allergy/AdvReac Type Severity Reaction Status Date / Time egg [EGG] Allergy Intermediate VOMITING Verified 04/04/24 21:25 oxycodone [OXYCODONE] Allergy Intermediate NAUSEA/NIGH Verified 04/04/24 21:25 TMARES Penicillins [PCN] Allergy Intermediate RASH Verified 04/04/24 21:25 tramadol [TRAMADOL] Allergy Intermediate ITCHING Verified 04/04/24 21:25 acetaminophen [Percocet] Allergy Unknown none Verified 04/04/24 21:25 codeine Allergy Unknown nightmares Verified 04/04/24 21:25 Mental Status Exam Mental Status Exam Narrative: Appearance: wearing hospital gown, good hygiene, in NAD Behavior: cooperative Psychomotor: no agitation or retardation noted Speech: clear, normal rate/rhythm/volume, spontaneous TP: linear TC: feeling overwhelmed, unable to care or parent teenagers Mood: depressed and anxious Affect: blunted SI: passive HI: none VH/AH: none Delusions: none Insight/judgment: fair x 2. Memory/cog: alert, oriented x 3. pending MOCA. Assessment & Plan Assessment & Plan (1) MDD (major depressive disorder), recurrent episode, moderate: Status: Acute Code(s): F33.1 - Major depressive disorder, recurrent, moderate Plan Ms. Higgins is a 58 year-old woman with long hx of depression, outpatient psychiatric treatment but no prior inpatient treatment who self presented [place] [facility] [place] increasing depression, passive suicidal ideation in context of feeling overwhelmed with caring for her two adopted teenager. We discussed risks, benefits and alternative treatment options. Pt reports shee worries about side effects of medications and at times does not take them consistently. She agreees to continue sertraline 100mg po daily. will hold wellbutrin as it may increase anxious mood and she does not take it regularly anyway. Continue buspar. PLAN 1. Admit to S1, CV, 5 minutes checks for safety. 2. continue sertraline 100mg po daily 3. obtain collateral information 4. aftercare planning. Patient educated on: diagnosis Reason for continued inpatient stay Substantial Risk for: harm to self Statement Statement: I have reviewed the history and physical and performed a pertinent examination on my patient. No changes have occurred unless specified. If the History and Physical was not performed prior to admission, the Hospitalist's service will be consulted for completing the admission physical. Time Spent With Patient Time: Total time managing care of this patient today ____ minutes.
--- NOTE | 2024-04-05 12:01 | PC.NURSE ---
Nurse to nurse report given, pt awaiting transport to floor.
[2024-04-05 12:27] VITALS: BP 144/60; PULSE 72; RESP 16; TEMP 36.2; O2SAT 97
[2024-04-05 12:29] VITALS: BMI 35.1
--- NOTE | 2024-04-05 13:35 | PC.ADMIT ---
Addendum entered by Belen Mast RN 04/05/24 16:28: Patient resides with adult daughter and teenage children. Original Note: Patient admitted from [facility] ED at 1215 with diagnosis of SI/Unspecified Depressive Disorder. Transported from ED to S1 via . Patient alert and oriented x4 wearing hospital attire. Presented as depressed, appeared stated age. Patient is primarily Italian speaking. Speaks and understands some Mauritanian. Makes good eye contact. Speech WNL. Patient states she resides with daughter and two teenage grandchildren. Vital signs WNL. Skin check done. Height and weight obtained. PMH includes Asthma, Diabetes, Dyslipidemia, Hypercholesteremia, HTN, Arthritis. EKG done. In sinus rythym . Patient on Ceftin for UTI . Placed on 5 minute checks. On Diabetic diet. Patient is continent of urine and stool, attends to own ADL's, Ambulates independently. Med rec complete. Interpretor required for completion of Admission.
[2024-04-05] MEDS: Empagliflozin 25 MG TABLET PO (15:19)
[2024-04-05] MEDS: Acetaminophen 325 MG TABLET 650 MG PO (17:07)
--- NOTE | 2024-04-05 17:09 | PC.NURSE ---
Patient medicated with Tylenol 650 mg for c/o R ankle pain 01/16. Will continue to monitor.
[2024-04-05] MEDS: traZODone HCL 50 MG TABLET PO (20:30)
[2024-04-05] MEDS: Atorvastatin Calcium 40 MG TABLET PO (20:30)
[2024-04-05] MEDS: metFORMIN HCl 1,000 MG TABLET 1000 MG PO (20:31)
[2024-04-05] MEDS: Montelukast Sodium 10 MG TABLET PO (20:31)
[2024-04-05 20:38] VITALS: BP 128/69; PULSE 71; TEMP 36; O2SAT 71
[2024-04-05 20:56] LABS: Glucose, Whole Blood 131 mg/dL (60-115)
[2024-04-06] MEDS: Omeprazole 20 MG CAPSULE.DR PO (06:08)
[2024-04-06 06:19] LABS: Glucose, Whole Blood 131 mg/dL (60-115)
[2024-04-06 08:00] VITALS: BP 145/82; PULSE 73; RESP 18; TEMP 36.3; O2SAT 98
[2024-04-06 08:35] LABS: Estimated Average Glucose 157 mg/dL; Hemoglobin A1c % 7.1 % (<6.0)
[2024-04-06 08:43] LABS: Alanine Aminotransferase 14 U/L (0-31); Albumin Level 4.3 g/dL (3.5-5.0); Alkaline Phosphatase 101 U/L (39-117); Anion Gap 13 (12-20); Aspartate Amino Transferase 16 U/L (5-31); Bilirubin Total 0.8 mg/dL (0.0-1.0); Blood Urea Nitrogen 13 mg/dL (9-16); Calcium 9.5 mg/dL (8.4-10.2); Carbon Dioxide 26 mmol/L (22-29); Chloride 106 mmol/L (96-108); Cholesterol 132 mg/dL (<200); Creatinine Clr Calc Pharmacy 91.2; Estimated Glomerular Filt Rate > 60; Glucose Fasting 140 mg/dL (60-99); HDL Cholesterol 48 mg/dL (>40); LDL Cholesterol Calculated 62 mg/dL (<100); Potassium 3.9 mmol/L (3.3-5.1); Sodium 141 mmol/L (135-145); Total Protein 7.3 g/dL (6.5-8.0); Triglycerides 113 mg/dL (<150)
[2024-04-06] MEDS: Empagliflozin 25 MG TABLET PO (08:48)
[2024-04-06] MEDS: buPROPion HCl XL 150 MG TAB.ER.24H PO (08:48)
[2024-04-06] MEDS: Cholecalciferol (Vitamin D3) 25 MCG TABLET 50 MCG PO (08:48)
[2024-04-06] MEDS: Sertraline HCL 100 MG TABLET PO (08:48)
[2024-04-06] MEDS: cefuroxime axetiL 250 MG TABLET PO ×2 (08:48→20:26)
[2024-04-06] MEDS: metFORMIN HCl 1,000 MG TABLET 1000 MG PO ×2 (08:49→20:26)
[2024-04-06] MEDS: Aspirin 81 MG TAB.CHEW PO (08:49)
[2024-04-06 08:58] LABS: Thyroid Stimulating Hormone 0.59 uIU/mL (0.32-4.0)
[2024-04-06 09:40] LABS: Folate 13.5 ng/mL (> or = 4.0); Vitamin B12 378 pg/mL (200-900)
[2024-04-06 10:41] LABS: Glucose, Whole Blood 167 mg/dL (60-115)
--- NOTE | 2024-04-06 12:40 | P.PNPSI_ITS ---
Subjective Subjective Date of Service: 04/06/24 Reason For Visit: SI Subjective Notes: Conditional Voluntary Interim History: The nursing staff reported the patient has complained of depression for quite a long time, she denies prior psychiatric treatment. The staff has noticed that she is alert oriented x4 dysphoric mostly Ukrainian- speaking. On interview the patient reports a long history of depression she is currently on Ceftin for UTI. We discussed options and she agreed to medication changes. Mental Status Exam Mental Status Exam Patient Appearance: Appropriate Patient Orientation: Person and Situation Level of Consciousness: Awake and Appropriate Patient Behavior: Appropriate and Passive Mood Description: Withdrawn Affect Description: Constricted Patient Cognition Impaired: No Ability to Follow Directions: Good Speech Pattern: Clear Hallucinations: None Delusions: Not Present Thought Process: Linear Thought Content: positive for [place] and positive for Poverty of Content Judgement: Fair Diagnostics Vital Signs (24Hr): Vital Signs - 24 hr 04/05/24 20:38 04/06/24 08:00 Temperature 96.8 F 97.3 F Pulse Rate 71 73 Respiratory Rate 18 Blood Pressure 128/69 145/82 H Pulse Oximetry 71 L 98 Oxygen Delivery Method Room Air Room Air BMI result Body Mass Index 35.1 Labs 04/04/24 22:19 04/06/24 08:07 Labs: Laboratory Results - last 48 hr 04/04/24 04/04/24 04/05/24 21:42 22:19 07:16 WBC 10.0 RBC 5.23 Hgb 13.9 Hct 41.5 MCV 79.3 L MCH 26.6 L MCHC 33.5 RDW 14.0 Plt Count 215 MPV 10.1 Immature Gran % (Auto) 0.3 Neut % (Auto) 50.7 Lymph % (Auto) 40.2 H Reeves % (Auto) 7.4 Eos % (Auto) 1.0 Baso % (Auto) 0.4 Lymph # (Auto) 4.0 Reeves # (Auto) 0.7 Eos # (Auto) 0.1 Baso # (Auto) 0.0 Abs Immat Gran (auto) 0.03 Absolute Neuts (auto) 5.1 Absolute Nucleated RBC 0.000 Nucleated RBC % (auto) 0.0 Sodium 140 Potassium 3.3 Chloride 104 Carbon Dioxide 22 Anion Gap 17 BUN 14 Creatinine 0.69 Estim Creat Clear Calc 100.0 Estimated GFR > 60 POC Glucose 127 H 147 H Random Glucose 138 H Fasting Glucose Estimat Average Glucose Hemoglobin A1c % Calcium 9.7 Magnesium Total Bilirubin 0.6 AST 17 ALT 14 Alkaline Phosphatase 95 Total Protein 7.1 Albumin 4.2 Triglycerides Cholesterol LDL Cholesterol, Calc HDL Cholesterol Vitamin B12 Folate TSH Urine Color Yellow Urine Appearance Clear Urine pH 5.5 Ur Specific [place] >= 1.030 H Urine Protein Negative Urine Glucose (UA) >=1000 H Urine Ketones Trace Urine Blood Negative Urine Nitrite Negative Ur Leukocyte Esterase Negative Urine RBC 0-2 Urine WBC 11-20 H Urine WBC Clumps Present Ur Squamous Epith Cells 0-2 Urine Bacteria None Seen Hyaline Casts 0-2 Salicylates < 5.0 L Urine Opiates Screen Not Detected Ur Buprenorphine Scrn Not Detected Ur Oxycodone Screen Not Detected Urine Methadone Screen Not Detected Urine Fentanyl Screen Not Detected Acetaminophen < 3 Ur Barbiturates Screen Not Detected Ur Phencyclidine Scrn Not Detected Ur Amphetamines Screen Not Detected U Benzodiazepines Scrn Not Detected Urine Cocaine Screen Not Detected U Marijuana (THC) Screen Not Detected Ethyl Alcohol < 10 04/05/24 04/06/24 04/06/24 20:30 06:07 08:07 WBC RBC Hgb Hct MCV MCH MCHC RDW Plt Count MPV Immature Gran % (Auto) Neut % (Auto) Lymph % (Auto) Reeves % (Auto) Eos % (Auto) Baso % (Auto) Lymph # (Auto) Reeves # (Auto) Eos # (Auto) Baso # (Auto) Abs Immat Gran (auto) Absolute Neuts (auto) Absolute Nucleated RBC Nucleated RBC % (auto) Sodium 141 Potassium 3.9 Chloride 106 Carbon Dioxide 26 Anion Gap 13 BUN 13 Creatinine 0.75 Estim Creat Clear Calc 91.2 Estimated GFR > 60 POC Glucose 131 H 131 H Random Glucose Fasting Glucose 140 H Estimat Average Glucose 157 Hemoglobin A1c % 7.1 H Calcium 9.5 Magnesium 2.0 Total Bilirubin 0.8 AST 16 ALT 14 Alkaline Phosphatase 101 Total Protein 7.3 Albumin 4.3 Triglycerides 113 Cholesterol 132 LDL Cholesterol, Calc 62 HDL Cholesterol 48 Vitamin B12 378 Folate 13.5 TSH 0.59 Urine Color Urine Appearance Urine pH Ur Specific [place] Urine Protein Urine Glucose (UA) Urine Ketones Urine Blood Urine Nitrite Ur Leukocyte Esterase Urine RBC Urine WBC Urine WBC Clumps Ur Squamous Epith Cells Urine Bacteria Hyaline Casts Salicylates Urine Opiates Screen Ur Buprenorphine Scrn Ur Oxycodone Screen Urine Methadone Screen Urine Fentanyl Screen Acetaminophen Ur Barbiturates Screen Ur Phencyclidine Scrn Ur Amphetamines Screen U Benzodiazepines Scrn Urine Cocaine Screen U Marijuana (THC) Screen Ethyl Alcohol 04/06/24 10:37 WBC RBC Hgb Hct MCV MCH MCHC RDW Plt Count MPV Immature Gran % (Auto) Neut % (Auto) Lymph % (Auto) Reeves % (Auto) Eos % (Auto) Baso % (Auto) Lymph # (Auto) Reeves # (Auto) Eos # (Auto) Baso # (Auto) Abs Immat Gran (auto) Absolute Neuts (auto) Absolute Nucleated RBC Nucleated RBC % (auto) Sodium Potassium Chloride Carbon Dioxide Anion Gap BUN Creatinine Estim Creat Clear Calc Estimated GFR POC Glucose 167 H Random Glucose Fasting Glucose Estimat Average Glucose Hemoglobin A1c % Calcium Magnesium Total Bilirubin AST ALT Alkaline Phosphatase Total Protein Albumin Triglycerides Cholesterol LDL Cholesterol, Calc HDL Cholesterol Vitamin B12 Folate TSH Urine Color Urine Appearance Urine pH Ur Specific [place] Urine Protein Urine Glucose (UA) Urine Ketones Urine Blood Urine Nitrite Ur Leukocyte Esterase Urine RBC Urine WBC Urine WBC Clumps Ur Squamous Epith Cells Urine Bacteria Hyaline Casts Salicylates Urine Opiates Screen Ur Buprenorphine Scrn Ur Oxycodone Screen Urine Methadone Screen Urine Fentanyl Screen Acetaminophen Ur Barbiturates Screen Ur Phencyclidine Scrn Ur Amphetamines Screen U Benzodiazepines Scrn Urine Cocaine Screen U Marijuana (THC) Screen Ethyl Alcohol Medications Medications Current Medications Acetaminophen (Acetaminophen 325 Mg Tablet) 650 mg PO Q6H PRN PRN Reason: Headache/Pain Mild Scale (1-3) Last Admin: 04/05/24 17:07 Dose: 650 mg Al Hydroxide/Mg Hydroxide (Magnesium Hydrox/Alum Hydrox 30 Ml Oral.Susp) 30 ml PO Q6H PRN PRN Reason: Heartburn/Nausea Albuterol Sulfate (Albuterol Sulfate 90 Mcg 8 Gm Inhaler) 2 puff INHALE Q6H PRN PRN Reason: shortness of breath or wheezing Aspirin (Aspirin 81 Mg Tab.Chew) 81 mg PO DAILY [facility] Last Admin: 04/06/24 08:49 Dose: 81 mg Atorvastatin Calcium (Atorvastatin Calcium 40 Mg Tablet) 40 mg PO BEDTIME [facility] Last Admin: 04/05/24 20:30 Dose: 40 mg Bupropion HCl (Bupropion Hcl Xl 150 Mg Tab.Er.24h) 150 mg PO DAILY [facility] Last Admin: 04/06/24 08:48 Dose: 150 mg Cefuroxime Axetil (Cefuroxime Axetil 250 Mg Tablet) 250 mg PO BID [facility] Stop: 04/14/24 21:01 Last Admin: 04/06/24 08:48 Dose: 250 mg Empagliflozin (Empagliflozin 25 Mg Tablet) 25 mg PO DAILY [facility] Last Admin: 04/06/24 08:48 Dose: 25 mg Magnesium Hydroxide (Milk Of Magnesia 30 Ml Oral.Susp) 30 ml PO DAILY PRN PRN Reason: Constipation Metformin HCl (Metformin Hcl 1,000 Mg Tablet) 1,000 mg PO BID [facility] Last Admin: 04/06/24 08:49 Dose: 1,000 mg Montelukast Sodium (Montelukast Sodium 10 Mg Tablet) 10 mg PO BEDTIME [facility] Last Admin: 04/05/24 20:31 Dose: 10 mg Omeprazole (Omeprazole 20 Mg Capsule.Dr) 20 mg PO DAILY@0630 [facility] Last Admin: 04/06/24 06:08 Dose: 20 mg Sertraline HCl (Sertraline Hcl 100 Mg Tablet) 100 mg PO DAILY [facility] Last Admin: 04/06/24 08:48 Dose: 100 mg Trazodone HCl (Trazodone Hcl 50 Mg Tablet) 50 mg PO BEDTIME MRX1 PRN PRN Reason: Insomnia Last Admin: 04/05/24 20:30 Dose: 50 mg Vitamin D (Cholecalciferol (Vitamin D3) 25 Mcg Tablet) 50 mcg PO DAILY [facility] Last Admin: 04/06/24 08:48 Dose: 50 mcg Allergies Allergies Allergy/AdvReac Type Severity Reaction Status Date / Time egg [EGG] Allergy Intermediate VOMITING Verified 04/04/24 21:25 oxycodone [OXYCODONE] Allergy Intermediate NAUSEA/NIGH Verified 04/04/24 21:25 TMARES Penicillins [PCN] Allergy Intermediate RASH Verified 04/04/24 21:25 tramadol [TRAMADOL] Allergy Intermediate ITCHING Verified 04/04/24 21:25 acetaminophen [Percocet] Allergy Unknown none Verified 04/04/24 21:25 codeine Allergy Unknown nightmares Verified 04/04/24 21:25 Assessment & Plan Assessment & Plan (1) MDD (major depressive disorder), recurrent episode, moderate: Status: Acute Code(s): F33.1 - Major depressive disorder, recurrent, moderate Plan Ms. Higgins is a 58 year-old woman with long hx of depression, outpatient psychiatric treatment but no prior inpatient treatment who self presented to [facility] ED reporting increasing depression, passive suicidal ideation in context of feeling overwhelmed with caring for her two adopted teenager. We discussed risks, benefits and alternative treatment options. Pt reports shee worries about side effects of medications and at times does not take them consistently. She agreees to continue sertraline 100mg po daily. will hold wellbutrin as it may increase anxious mood and she does not take it regularly anyway. Continue buspar. PLAN 1. Admit to S1, CV, 5 minutes checks for safety. 2. continue sertraline 100mg po daily 3. obtain collateral information 4. aftercare planning. Reason for continued inpatient stay Substantial Risk for: inability to function, rapid decompensation and med/psych decompensation Time Spent With Patient Time: Total time managing care of this patient today __20__ minutes.
--- NOTE | 2024-04-06 15:00 | MHC.CLN ---
NUTRITION REVIEW OF WEIGHT HX SHOWS -7.4% (17#) WEIGHT LOSS X 6 MONTHS. WEIGHT LOSS X ONE YEAR -14%. CURRENT INTAKE APPEARS TO BE VERY GOOD. CONTINUE DIABETIC 2200 KCAL DIET. NO NEW NUTRITION INTERVENTIONS AT THIS TIME.
[2024-04-06 19:48] LABS: Glucose, Whole Blood 105 mg/dL (60-115)
[2024-04-06 20:00] VITALS: BP 100/50; PULSE 68; RESP 18; TEMP 36.7; O2SAT 97
[2024-04-06] MEDS: Acetaminophen 325 MG TABLET 650 MG PO (20:26)
[2024-04-06] MEDS: Montelukast Sodium 10 MG TABLET PO (20:26)
[2024-04-06] MEDS: Atorvastatin Calcium 40 MG TABLET PO (20:26)
[2024-04-06] MEDS: traZODone HCL 50 MG TABLET PO (20:26)
[2024-04-07] MEDS: Omeprazole 20 MG CAPSULE.DR PO (06:05)
[2024-04-07 06:18] LABS: Glucose, Whole Blood 127 mg/dL (60-115)
[2024-04-07 07:00] VITALS: BMI 35.2
[2024-04-07 08:00] VITALS: BP 117/75; PULSE 82; RESP 18; TEMP 36.4; O2SAT 99
--- NOTE | 2024-04-07 08:03 | P.PNPSI_ITS ---
Subjective Subjective Date of Service: 04/07/24 Reason For Visit: SI Subjective Notes: Conditional Voluntary Interim History: The nursing staff reported the patient had been compliant with treatment, she had been social with Croatian-speaking peers. She reported depression 06/18 and she slept 8 hours. The social media sr strategy manager reported that the family reported memory difficulties and she had been taking care of 2 minor teenage children. Apparently she had a TIA and she had an MRI 2 years ago. On interview the patient reports depression she stated that she slept better yesterday. We did a new MRI we are waiting for the results Mental Status Exam Mental Status Exam Patient Appearance: Appropriate Patient Orientation: Person and Situation Level of Consciousness: Awake and Appropriate Patient Behavior: Guarded and Passive Mood Description: Withdrawn Affect Description: Constricted Patient Cognition Impaired: Yes Ability to Follow Directions: Good Speech Pattern: Clear Hallucinations: None Delusions: Not Present Thought Process: Distracted and Linear Thought Content: positive for [place] and positive for Circumstantial Judgement: Fair Diagnostics Vital Signs (24Hr): Vital Signs - 24 hr 04/06/24 20:00 Temperature 98.0 F Pulse Rate 68 Respiratory Rate 18 Blood Pressure 100/50 L Pulse Oximetry 97 Oxygen Delivery Method Room Air BMI result Body Mass Index 35.1 Labs 04/04/24 22:19 04/06/24 08:07 Labs: Laboratory Results - last 48 hr 04/05/24 04/06/24 04/06/24 20:30 06:07 08:07 Sodium 141 Potassium 3.9 Chloride 106 Carbon Dioxide 26 Anion Gap 13 BUN 13 Creatinine 0.75 Estim Creat Clear Calc 91.2 Estimated GFR > 60 POC Glucose 131 H 131 H Fasting Glucose 140 H Estimat Average Glucose 157 Hemoglobin A1c % 7.1 H Calcium 9.5 Magnesium 2.0 Total Bilirubin 0.8 AST 16 ALT 14 Alkaline Phosphatase 101 Total Protein 7.3 Albumin 4.3 Triglycerides 113 Cholesterol 132 LDL Cholesterol, Calc 62 HDL Cholesterol 48 Vitamin B12 378 Folate 13.5 TSH 0.59 04/06/24 04/06/24 04/07/24 10:37 19:41 06:06 Sodium Potassium Chloride Carbon Dioxide Anion Gap BUN Creatinine Estim Creat Clear Calc Estimated GFR POC Glucose 167 H 105 127 H Fasting Glucose Estimat Average Glucose Hemoglobin A1c % Calcium Magnesium Total Bilirubin AST ALT Alkaline Phosphatase Total Protein Albumin Triglycerides Cholesterol LDL Cholesterol, Calc HDL Cholesterol Vitamin B12 Folate TSH Medications Medications Current Medications Acetaminophen (Acetaminophen 325 Mg Tablet) 650 mg PO Q6H PRN PRN Reason: Headache/Pain Mild Scale (1-3) Last Admin: 04/06/24 20:26 Dose: 650 mg Al Hydroxide/Mg Hydroxide (Magnesium Hydrox/Alum Hydrox 30 Ml Oral.Susp) 30 ml PO Q6H PRN PRN Reason: Heartburn/Nausea Albuterol Sulfate (Albuterol Sulfate 90 Mcg 8 Gm Inhaler) 2 puff INHALE Q6H PRN PRN Reason: shortness of breath or wheezing Aspirin (Aspirin 81 Mg Tab.Chew) 81 mg PO DAILY [facility] Last Admin: 04/06/24 08:49 Dose: 81 mg Atorvastatin Calcium (Atorvastatin Calcium 40 Mg Tablet) 40 mg PO BEDTIME [facility] Last Admin: 04/06/24 20:26 Dose: 40 mg Bupropion HCl (Bupropion Hcl Xl 150 Mg Tab.Er.24h) 150 mg PO DAILY [facility] Last Admin: 04/06/24 08:48 Dose: 150 mg Cefuroxime Axetil (Cefuroxime Axetil 250 Mg Tablet) 250 mg PO BID [facility] Stop: 04/14/24 21:01 Last Admin: 04/06/24 20:26 Dose: 250 mg Empagliflozin (Empagliflozin 25 Mg Tablet) 25 mg PO DAILY [facility] Last Admin: 04/06/24 08:48 Dose: 25 mg Magnesium Hydroxide (Milk Of Magnesia 30 Ml Oral.Susp) 30 ml PO DAILY PRN PRN Reason: Constipation Metformin HCl (Metformin Hcl 1,000 Mg Tablet) 1,000 mg PO BID [facility] Last Admin: 04/06/24 20:26 Dose: 1,000 mg Montelukast Sodium (Montelukast Sodium 10 Mg Tablet) 10 mg PO BEDTIME [facility] Last Admin: 04/06/24 20:26 Dose: 10 mg Omeprazole (Omeprazole 20 Mg Capsule.Dr) 20 mg PO DAILY@0630 [facility] Last Admin: 04/07/24 06:05 Dose: 20 mg Sertraline HCl (Sertraline Hcl 100 Mg Tablet) 100 mg PO DAILY [facility] Last Admin: 04/06/24 08:48 Dose: 100 mg Trazodone HCl (Trazodone Hcl 50 Mg Tablet) 50 mg PO BEDTIME MRX1 PRN PRN Reason: Insomnia Last Admin: 04/06/24 20:26 Dose: 50 mg Vitamin D (Cholecalciferol (Vitamin D3) 25 Mcg Tablet) 50 mcg PO DAILY [facility] Last Admin: 04/06/24 08:48 Dose: 50 mcg Allergies Allergies Allergy/AdvReac Type Severity Reaction Status Date / Time egg [EGG] Allergy Intermediate VOMITING Verified 04/04/24 21:25 oxycodone [OXYCODONE] Allergy Intermediate NAUSEA/NIGH Verified 04/04/24 21:25 TMARES Penicillins [PCN] Allergy Intermediate RASH Verified 04/04/24 21:25 tramadol [TRAMADOL] Allergy Intermediate ITCHING Verified 04/04/24 21:25 acetaminophen [Percocet] Allergy Unknown none Verified 04/04/24 21:25 codeine Allergy Unknown nightmares Verified 04/04/24 21:25 Assessment & Plan Assessment & Plan (1) MDD (major depressive disorder), recurrent episode, moderate: Status: Acute Code(s): F33.1 - Major depressive disorder, recurrent, moderate Plan Ms. Higgins is a 58 year-old woman with long hx of depression, outpatient psychiatric treatment but no prior inpatient treatment who self presented to [facility] reporting increasing depression, passive suicidal ideation in context of feeling overwhelmed with caring for her two adopted teenager. We discussed risks, benefits and alternative treatment options. Pt reports shee worries about side effects of medications and at times does not take them consistently. She agreees to continue sertraline 100mg po daily. will hold wellbutrin as it may increase anxious mood and she does not take it regularly anyway. Continue buspar. PLAN 1. Admit to S1, CV, 5 minutes checks for safety. 2. continue sertraline 100mg po daily 3. obtain collateral information 4. aftercare planning. Reason for continued inpatient stay Substantial Risk for: inability to function, rapid decompensation and med/psych decompensation Time Spent With Patient Time: Total time managing care of this patient today __20__ minutes.
[2024-04-07] MEDS: Empagliflozin 25 MG TABLET PO (08:27)
[2024-04-07] MEDS: Cholecalciferol (Vitamin D3) 25 MCG TABLET 50 MCG PO (08:27)
[2024-04-07] MEDS: Sertraline HCL 100 MG TABLET PO (08:27)
[2024-04-07] MEDS: buPROPion HCl XL 150 MG TAB.ER.24H PO (08:27)
[2024-04-07] MEDS: cefuroxime axetiL 250 MG TABLET PO ×2 (08:27→20:48)
[2024-04-07] MEDS: Aspirin 81 MG TAB.CHEW PO (08:27)
[2024-04-07] MEDS: metFORMIN HCl 1,000 MG TABLET 1000 MG PO ×2 (08:27→20:48)
[2024-04-07] MEDS: Acetaminophen 325 MG TABLET 650 MG PO ×2 (08:31→15:14)
[2024-04-07 20:00] VITALS: BP 119/67; PULSE 72; RESP 16; TEMP 36.4; O2SAT 98
[2024-04-07 20:05] LABS: Glucose, Whole Blood 143 mg/dL (60-115)
[2024-04-07] MEDS: traZODone HCL 50 MG TABLET PO (20:48)
[2024-04-07] MEDS: Montelukast Sodium 10 MG TABLET PO (20:48)
[2024-04-07] MEDS: Atorvastatin Calcium 40 MG TABLET PO (20:49)
[2024-04-08] MEDS: Omeprazole 20 MG CAPSULE.DR PO (06:15)
[2024-04-08 06:21] LABS: Glucose, Whole Blood 118 mg/dL (60-115)
[2024-04-08 07:55] VITALS: BP 136/66; PULSE 73; RESP 18; TEMP 37.1; O2SAT 98
[2024-04-08] MEDS: metFORMIN HCl 1,000 MG TABLET 1000 MG PO ×2 (08:32→20:14)
[2024-04-08] MEDS: Empagliflozin 25 MG TABLET PO (08:33)
[2024-04-08] MEDS: Acetaminophen 325 MG TABLET 650 MG PO ×2 (08:33→20:15)
[2024-04-08] MEDS: Aspirin 81 MG TAB.CHEW PO (08:33)
[2024-04-08] MEDS: Cholecalciferol (Vitamin D3) 25 MCG TABLET 50 MCG PO (08:34)
[2024-04-08] MEDS: cefuroxime axetiL 250 MG TABLET PO ×2 (08:34→20:15)
[2024-04-08] MEDS: buPROPion HCl XL 150 MG TAB.ER.24H PO (08:35)
[2024-04-08] MEDS: Sertraline HCL 100 MG TABLET PO (08:36)
[2024-04-08] MEDS: Milk of Magnesia 30 ML ORAL.SUSP PO (08:36)
--- NOTE | 2024-04-08 14:40 | P.PNPSI_ITS ---
Subjective Subjective Date of Service: 04/08/24 Reason For Visit: SI Subjective Notes: Conditional Voluntary Interim History: The nursing staff reported the patient had been seen in the common areas very depressed flat. She slept 8 hours. The social insurance specialist reported that her daughter is taking care of the minor children who were under her care. At this moment the patient is unable to take care of other my nurse. On interview the patient remains depressed she reports better sleep but still dysphoric. She agreed to increase Zoloft. Mental Status Exam Mental Status Exam Patient Appearance: Appropriate Patient Orientation: Person, Place and Situation Level of Consciousness: Awake and Appropriate Patient Behavior: Guarded and Passive Mood Description: Withdrawn Affect Description: Calm and Constricted Patient Cognition Impaired: Yes Ability to Follow Directions: Good Speech Pattern: Clear Hallucinations: None Delusions: Not Present Thought Process: Distracted and Slowed Thinking Thought Content: positive for [place] and positive for Poverty of Content Judgement: Fair Diagnostics Vital Signs (24Hr): Vital Signs - 24 hr 04/07/24 20:00 04/08/24 07:55 Temperature 97.6 F 98.7 F Pulse Rate 72 73 Respiratory Rate 16 18 Blood Pressure 119/67 136/66 Pulse Oximetry 98 98 Oxygen Delivery Method Room Air Room Air BMI result Body Mass Index 35.2 Labs 04/04/24 22:19 04/06/24 08:07 Labs: Laboratory Results - last 48 hr 04/06/24 04/07/24 04/07/24 19:41 06:06 19:56 POC Glucose 105 127 H 143 H 04/08/24 06:14 POC Glucose 118 H Imaging Radiology Impressions: ITS Impressions Brain MRI 04/07/24 12:59 IMPRESSION: 1. No acute intracranial abnormalities. 2. Mild underlying microangiopathy. Medications Medications Current Medications Acetaminophen (Acetaminophen 325 Mg Tablet) 650 mg PO Q6H PRN PRN Reason: Headache/Pain Mild Scale (1-3) Last Admin: 04/08/24 08:33 Dose: 650 mg Al Hydroxide/Mg Hydroxide (Magnesium Hydrox/Alum Hydrox 30 Ml Oral.Susp) 30 ml PO Q6H PRN PRN Reason: Heartburn/Nausea Albuterol Sulfate (Albuterol Sulfate 90 Mcg 8 Gm Inhaler) 2 puff INHALE Q6H PRN PRN Reason: shortness of breath or wheezing Aspirin (Aspirin 81 Mg Tab.Chew) 81 mg PO DAILY [facility] Last Admin: 04/08/24 08:33 Dose: 81 mg Atorvastatin Calcium (Atorvastatin Calcium 40 Mg Tablet) 40 mg PO BEDTIME [facility] Last Admin: 04/07/24 20:49 Dose: 40 mg Bupropion HCl (Bupropion Hcl Xl 150 Mg Tab.Er.24h) 150 mg PO DAILY [facility] Last Admin: 04/08/24 08:35 Dose: 150 mg Cefuroxime Axetil (Cefuroxime Axetil 250 Mg Tablet) 250 mg PO BID [facility] Stop: 04/14/24 21:01 Last Admin: 04/08/24 08:34 Dose: 250 mg Empagliflozin (Empagliflozin 25 Mg Tablet) 25 mg PO DAILY [facility] Last Admin: 04/08/24 08:33 Dose: 25 mg Lorazepam (Lorazepam 0.5 Mg Tablet) 0.5 mg PO Q8H PRN PRN Reason: Anxiety Magnesium Hydroxide (Milk Of Magnesia 30 Ml Oral.Susp) 30 ml PO DAILY PRN PRN Reason: Constipation Last Admin: 04/08/24 08:36 Dose: 30 ml Metformin HCl (Metformin Hcl 1,000 Mg Tablet) 1,000 mg PO BID [facility] Last Admin: 04/08/24 08:32 Dose: 1,000 mg Montelukast Sodium (Montelukast Sodium 10 Mg Tablet) 10 mg PO BEDTIME [facility] Last Admin: 04/07/24 20:48 Dose: 10 mg Omeprazole (Omeprazole 20 Mg Capsule.Dr) 20 mg PO DAILY@0630 [facility] Last Admin: 04/08/24 06:15 Dose: 20 mg Sertraline HCl (Sertraline Hcl 100 Mg Tablet) 100 mg PO DAILY [facility] Last Admin: 04/08/24 08:36 Dose: 100 mg Trazodone HCl (Trazodone Hcl 50 Mg Tablet) 50 mg PO BEDTIME MRX1 PRN PRN Reason: Insomnia Last Admin: 04/07/24 20:48 Dose: 50 mg Vitamin D (Cholecalciferol (Vitamin D3) 25 Mcg Tablet) 50 mcg PO DAILY [facility] Last Admin: 04/08/24 08:34 Dose: 50 mcg Allergies Allergies Allergy/AdvReac Type Severity Reaction Status Date / Time egg [EGG] Allergy Intermediate VOMITING Verified 04/04/24 21:25 oxycodone [OXYCODONE] Allergy Intermediate NAUSEA/NIGH Verified 04/04/24 21:25 TMARES Penicillins [PCN] Allergy Intermediate RASH Verified 04/04/24 21:25 tramadol [TRAMADOL] Allergy Intermediate ITCHING Verified 04/04/24 21:25 acetaminophen [Percocet] Allergy Unknown none Verified 04/04/24 21:25 codeine Allergy Unknown nightmares Verified 04/04/24 21:25 Assessment & Plan Assessment & Plan (1) MDD (major depressive disorder), recurrent episode, moderate: Status: Acute Code(s): F33.1 - Major depressive disorder, recurrent, moderate Plan Ms. Higgins is a 58 year-old woman with long hx of depression, outpatient psychiatric treatment but no prior inpatient treatment who self presented to [facility] reporting increasing depression, passive suicidal ideation in context of feeling overwhelmed with caring for her two adopted teenager. We discussed risks, benefits and alternative treatment options. Pt reports shee worries about side effects of medications and at times does not take them consistently. She agreees to continue sertraline 100mg po daily. will hold wellbutrin as it may increase anxious mood and she does not take it regularly anyway. Continue buspar. PLAN 1. Admit to S1, CV, 5 minutes checks for safety. 2. continue sertraline 100mg po daily 3. obtain collateral information 4. aftercare planning. 5. Increase Zoloft up to 150 mg p.o. q.a.m. starting on April 09. 6. Results from MRI did not show major changes. Reason for continued inpatient stay Substantial Risk for: inability to function, rapid decompensation and med/psych decompensation Time Spent With Patient Time: Total time managing care of this patient today __20__ minutes.
--- NOTE | 2024-04-08 18:16 | PC.NURSE ---
Patient given MOM 30 cc Po this morning without effect so far. She is complaining about mild abdominal pain, abdomen is soft, non-distended with positive hypoactive bowel sounds in all quadrants. Tia Eng COMPUTER PROGRAMMING SUPERVISOR notified and new orders obtained.
[2024-04-08 19:50] LABS: Glucose, Whole Blood 130 mg/dL (60-115)
[2024-04-08 20:00] VITALS: BP 98/56; PULSE 70; RESP 18; TEMP 36.7; O2SAT 98
[2024-04-08] MEDS: Atorvastatin Calcium 40 MG TABLET PO (20:14)
[2024-04-08] MEDS: Montelukast Sodium 10 MG TABLET PO (20:15)
[2024-04-08] MEDS: bisacodyL 10 MG SUPP.RECT PR (20:15)
[2024-04-08] MEDS: traZODone HCL 50 MG TABLET PO (20:15)
[2024-04-09] MEDS: Omeprazole 20 MG CAPSULE.DR PO (05:23)
[2024-04-09 06:10] LABS: Glucose, Whole Blood 118 mg/dL (60-115)
[2024-04-09 08:00] VITALS: BP 106/65; PULSE 68; RESP 18; TEMP 36.6; O2SAT 98
[2024-04-09] MEDS: Acetaminophen 325 MG TABLET 650 MG PO ×2 (08:19→20:45)
[2024-04-09] MEDS: Cholecalciferol (Vitamin D3) 25 MCG TABLET 50 MCG PO (08:19)
[2024-04-09] MEDS: buPROPion HCl XL 150 MG TAB.ER.24H PO (08:20)
[2024-04-09] MEDS: Empagliflozin 25 MG TABLET PO (08:20)
[2024-04-09] MEDS: metFORMIN HCl 1,000 MG TABLET 1000 MG PO ×2 (08:20→20:43)
[2024-04-09] MEDS: Aspirin 81 MG TAB.CHEW PO (08:20)
[2024-04-09] MEDS: cefuroxime axetiL 250 MG TABLET PO ×2 (08:20→20:43)
[2024-04-09] MEDS: Sertraline HCL 100 MG TABLET PO (08:20)
--- NOTE | 2024-04-09 11:10 | HO.PSYCHPN ---
Subjective Subjective Date of Service: 04/09/24 Reason For Visit: SI Subjective Notes: Conditional Voluntary Interim History: Met with patient. Discussed with Nursing. Overall reports that she is doing so, so . main complaint is GI discomfort - likely related to Antibiotics recently started. Feeling well cared for. Sleep okay. no agitation. Medication Compliance: Yes Side effects from medications: No Attending Groups: No Review of Systems Acute medical concerns: No Review of Systems Review of Systems Constipation Mental Status Exam Mental Status Exam Narrative: no evidence of SI or HI. Patient Appearance: Unkempt Patient Orientation: Person, Place and Situation Level of Consciousness: Awake and Appropriate Patient Behavior: Guarded and Passive Mood Description: Withdrawn Affect Description: Calm and Constricted Patient Cognition Impaired: Yes Ability to Follow Directions: Good Speech Pattern: Clear Hallucinations: None Delusions: Not Present Thought Process: Distracted and Slowed Thinking Thought Content: positive for [place] and positive for Poverty of Content Judgement: Fair Diagnostics Vital Signs (24Hr): Vital Signs - 24 hr 04/08/24 20:00 04/09/24 08:00 Temperature 98.1 F 97.8 F Pulse Rate 70 68 Respiratory Rate 18 18 Blood Pressure 98/56 L 106/65 Pulse Oximetry 98 98 Oxygen Delivery Method Room Air Room Air BMI result Body Mass Index 35.2 Labs 04/04/24 22:19 04/06/24 08:07 Labs: Laboratory Results - last 48 hr 04/07/24 04/08/24 04/08/24 19:56 06:14 19:40 POC Glucose 143 H 118 H 130 H 04/09/24 05:40 POC Glucose 118 H Imaging Radiology Impressions: ITS Impressions Brain MRI 04/07/24 12:59 IMPRESSION: 1. No acute intracranial abnormalities. 2. Mild underlying microangiopathy. Medications Medications Current Medications Acetaminophen (Acetaminophen 325 Mg Tablet) 650 mg PO Q6H PRN PRN Reason: Headache/Pain Mild Scale (1-3) Last Admin: 04/09/24 08:19 Dose: 650 mg Al Hydroxide/Mg Hydroxide (Magnesium Hydrox/Alum Hydrox 30 Ml Oral.Susp) 30 ml PO Q6H PRN PRN Reason: Heartburn/Nausea Albuterol Sulfate (Albuterol Sulfate 90 Mcg 8 Gm Inhaler) 2 puff INHALE Q6H PRN PRN Reason: shortness of breath or wheezing Aspirin (Aspirin 81 Mg Tab.Chew) 81 mg PO DAILY [facility] Last Admin: 04/09/24 08:20 Dose: 81 mg Atorvastatin Calcium (Atorvastatin Calcium 40 Mg Tablet) 40 mg PO BEDTIME [facility] Last Admin: 04/08/24 20:14 Dose: 40 mg Bupropion HCl (Bupropion Hcl Xl 150 Mg Tab.Er.24h) 150 mg PO DAILY [facility] Last Admin: 04/09/24 08:20 Dose: 150 mg Cefuroxime Axetil (Cefuroxime Axetil 250 Mg Tablet) 250 mg PO BID [facility] Stop: 04/14/24 21:01 Last Admin: 04/09/24 08:20 Dose: 250 mg Empagliflozin (Empagliflozin 25 Mg Tablet) 25 mg PO DAILY [facility] Last Admin: 04/09/24 08:20 Dose: 25 mg Lorazepam (Lorazepam 0.5 Mg Tablet) 0.5 mg PO Q8H PRN PRN Reason: Anxiety Magnesium Hydroxide (Milk Of Magnesia 30 Ml Oral.Susp) 30 ml PO DAILY PRN PRN Reason: Constipation Last Admin: 04/08/24 08:36 Dose: 30 ml Metformin HCl (Metformin Hcl 1,000 Mg Tablet) 1,000 mg PO BID [facility] Last Admin: 04/09/24 08:20 Dose: 1,000 mg Montelukast Sodium (Montelukast Sodium 10 Mg Tablet) 10 mg PO BEDTIME [facility] Last Admin: 04/08/24 20:15 Dose: 10 mg Omeprazole (Omeprazole 20 Mg Capsule.Dr) 20 mg PO DAILY@0630 [facility] Last Admin: 04/09/24 05:23 Dose: 20 mg Sertraline HCl (Sertraline Hcl 100 Mg Tablet) 100 mg PO DAILY [facility] Last Admin: 04/09/24 08:20 Dose: 100 mg Trazodone HCl (Trazodone Hcl 50 Mg Tablet) 50 mg PO BEDTIME MRX1 PRN PRN Reason: Insomnia Last Admin: 04/08/24 20:15 Dose: 50 mg Vitamin D (Cholecalciferol (Vitamin D3) 25 Mcg Tablet) 50 mcg PO DAILY [facility] Last Admin: 04/09/24 08:19 Dose: 50 mcg Allergies Allergies Allergy/AdvReac Type Severity Reaction Status Date / Time egg [EGG] Allergy Intermediate VOMITING Verified 04/04/24 21:25 oxycodone [OXYCODONE] Allergy Intermediate NAUSEA/NIGH Verified 04/04/24 21:25 TMARES Penicillins [PCN] Allergy Intermediate RASH Verified 04/04/24 21:25 tramadol [TRAMADOL] Allergy Intermediate ITCHING Verified 04/04/24 21:25 acetaminophen [Percocet] Allergy Unknown none Verified 04/04/24 21:25 codeine Allergy Unknown nightmares Verified 04/04/24 21:25 Assessment & Plan Assessment & Plan (1) MDD (major depressive disorder), recurrent episode, moderate: Status: Acute Code(s): F33.1 - Major depressive disorder, recurrent, moderate Plan Ms. Higgins is a 58 year-old woman with long hx of depression, outpatient psychiatric treatment but no prior inpatient treatment who self presented [place] [facility] reporting increasing depression, passive suicidal ideation in context of feeling overwhelmed with caring for her two adopted teenager. We discussed risks, benefits and alternative treatment options. Pt reports shee worries about side effects of medications and at times does not take them consistently. She agreees to continue sertraline 100mg po daily. will hold wellbutrin as it may increase anxious mood and she does not take it regularly anyway. Continue buspar. PLAN 1. Admit to S1, CV, 5 minutes checks for safety. 2. continue sertraline 100mg po daily 3. obtain collateral information 4. aftercare planning. 5. Increase Zoloft up to 150 mg p.o. q.a.m. starting on April 09. 6. Results from MRI did not show major changes. 04/09/2024: No changes to current regimen Reason for continued inpatient stay Substantial Risk for: inability to function Time Spent With Patient Time: Total time managing care of this patient today ____ minutes.
[2024-04-09 20:00] VITALS: BP 121/65; PULSE 55; RESP 18; TEMP 36.6; O2SAT 98
[2024-04-09 20:06] LABS: Glucose, Whole Blood 167 mg/dL (60-115)
[2024-04-09] MEDS: traZODone HCL 50 MG TABLET PO (20:43)
[2024-04-09] MEDS: Atorvastatin Calcium 40 MG TABLET PO (20:43)
[2024-04-09] MEDS: Montelukast Sodium 10 MG TABLET PO (20:43)
[2024-04-10] MEDS: Omeprazole 20 MG CAPSULE.DR PO (06:02)
[2024-04-10 06:19] LABS: Glucose, Whole Blood 109 mg/dL (60-115)
[2024-04-10 08:00] VITALS: BP 108/71; PULSE 71; RESP 18; TEMP 36.3; O2SAT 98
[2024-04-10] MEDS: buPROPion HCl XL 150 MG TAB.ER.24H PO (08:12)
[2024-04-10] MEDS: metFORMIN HCl 1,000 MG TABLET 1000 MG PO ×2 (08:12→20:21)
[2024-04-10] MEDS: Sertraline HCL 100 MG TABLET PO (08:12)
[2024-04-10] MEDS: cefuroxime axetiL 250 MG TABLET PO ×2 (08:12→20:21)
[2024-04-10] MEDS: Empagliflozin 25 MG TABLET PO (08:12)
[2024-04-10] MEDS: Cholecalciferol (Vitamin D3) 25 MCG TABLET 50 MCG PO (08:12)
[2024-04-10] MEDS: Aspirin 81 MG TAB.CHEW PO (08:12)
--- NOTE | 2024-04-10 11:03 | P.PNPSI_ITS ---
Subjective Subjective Date of Service: 04/10/24 Reason For Visit: SI Interim History: Met with patient. Discussed with Nursing. Overall reports that she is doing so, so . Showed sign writer hand 2 small dark spots, 1 on the sole of each foot. some discomfort when walking. No signs of erythema, swelling etc.. Does look consistent with tinea Nigra. Sleep okay. no agitation. Review of Systems Review of Systems Showed sign writer hand 2 small dark spots, 1 on the sole of each foot. some discomfort when walking. No signs of erythema, swelling etc.. Does look consistent with tinea Nigra. Mental Status Exam Mental Status Exam Narrative: no evidence of SI or HI. Patient Appearance: Unkempt Patient Orientation: Person, Place and Situation Level of Consciousness: Awake and Appropriate Patient Behavior: Guarded and Passive Mood Description: Withdrawn Affect Description: Calm and Constricted Patient Cognition Impaired: Yes Ability to Follow Directions: Good Speech Pattern: Clear Diagnostics Vital Signs (24Hr): Vital Signs - 24 hr 04/09/24 20:00 04/10/24 08:00 Temperature 97.8 F 97.4 F Pulse Rate 55 71 Respiratory Rate 18 18 Blood Pressure 121/65 108/71 Pulse Oximetry 98 98 Oxygen Delivery Method Room Air Room Air BMI result Body Mass Index 35.2 Labs 04/04/24 22:19 04/06/24 08:07 Labs: Laboratory Results - last 48 hr 04/08/24 04/09/24 04/09/24 19:40 05:40 20:02 POC Glucose 130 H 118 H 167 H 04/10/24 05:57 POC Glucose 109 Imaging Radiology Impressions: ITS Impressions Brain MRI 04/07/24 12:59 IMPRESSION: 1. No acute intracranial abnormalities. 2. Mild underlying microangiopathy. Medications Medications Current Medications Acetaminophen (Acetaminophen 325 Mg Tablet) 650 mg PO Q6H PRN PRN Reason: Headache/Pain Mild Scale (1-3) Last Admin: 04/09/24 20:45 Dose: 650 mg Al Hydroxide/Mg Hydroxide (Magnesium Hydrox/Alum Hydrox 30 Ml Oral.Susp) 30 ml PO Q6H PRN PRN Reason: Heartburn/Nausea Albuterol Sulfate (Albuterol Sulfate 90 Mcg 8 Gm Inhaler) 2 puff INHALE Q6H PRN PRN Reason: shortness of breath or wheezing Aspirin (Aspirin 81 Mg Tab.Chew) 81 mg PO DAILY [facility] Last Admin: 04/10/24 08:12 Dose: 81 mg Atorvastatin Calcium (Atorvastatin Calcium 40 Mg Tablet) 40 mg PO BEDTIME [facility] Last Admin: 04/09/24 20:43 Dose: 40 mg Bupropion HCl (Bupropion Hcl Xl 150 Mg Tab.Er.24h) 150 mg PO DAILY [facility] Last Admin: 04/10/24 08:12 Dose: 150 mg Cefuroxime Axetil (Cefuroxime Axetil 250 Mg Tablet) 250 mg PO BID [facility] Stop: 04/14/24 21:01 Last Admin: 04/10/24 08:12 Dose: 250 mg Empagliflozin (Empagliflozin 25 Mg Tablet) 25 mg PO DAILY [facility] Last Admin: 04/10/24 08:12 Dose: 25 mg Lorazepam (Lorazepam 0.5 Mg Tablet) 0.5 mg PO Q8H PRN PRN Reason: Anxiety Magnesium Hydroxide (Milk Of Magnesia 30 Ml Oral.Susp) 30 ml PO DAILY PRN PRN Reason: Constipation Last Admin: 04/08/24 08:36 Dose: 30 ml Metformin HCl (Metformin Hcl 1,000 Mg Tablet) 1,000 mg PO BID [facility] Last Admin: 04/10/24 08:12 Dose: 1,000 mg Montelukast Sodium (Montelukast Sodium 10 Mg Tablet) 10 mg PO BEDTIME [facility] Last Admin: 04/09/24 20:43 Dose: 10 mg Nystatin (Nystatin Cream 15 Gm Tube) 1 appl TOPICAL BID [facility]; Protocol Omeprazole (Omeprazole 20 Mg Capsule.Dr) 20 mg PO DAILY@0630 [facility] Last Admin: 04/10/24 06:02 Dose: 20 mg Sertraline HCl (Sertraline Hcl 100 Mg Tablet) 100 mg PO DAILY [facility] Last Admin: 04/10/24 08:12 Dose: 100 mg Trazodone HCl (Trazodone Hcl 50 Mg Tablet) 50 mg PO BEDTIME MRX1 PRN PRN Reason: Insomnia Last Admin: 04/09/24 20:43 Dose: 50 mg Vitamin D (Cholecalciferol (Vitamin D3) 25 Mcg Tablet) 50 mcg PO DAILY [facility] Last Admin: 04/10/24 08:12 Dose: 50 mcg Allergies Allergies Allergy/AdvReac Type Severity Reaction Status Date / Time egg [EGG] Allergy Intermediate VOMITING Verified 04/04/24 21:25 oxycodone [OXYCODONE] Allergy Intermediate NAUSEA/NIGH Verified 04/04/24 21:25 TMARES Penicillins [PCN] Allergy Intermediate RASH Verified 04/04/24 21:25 tramadol [TRAMADOL] Allergy Intermediate ITCHING Verified 04/04/24 21:25 acetaminophen [Percocet] Allergy Unknown none Verified 04/04/24 21:25 codeine Allergy Unknown nightmares Verified 04/04/24 21:25 Assessment & Plan Assessment & Plan (1) MDD (major depressive disorder), recurrent episode, moderate: Status: Acute Code(s): F33.1 - Major depressive disorder, recurrent, moderate Plan Ms. Higgins is a 58 year-old woman with long hx of depression, outpatient psychiatric treatment but no prior inpatient treatment who self [place] [facility] [place] increasing depression, passive suicidal ideation in context of feeling overwhelmed with caring for her two adopted teenager. We discussed risks, benefits and alternative treatment options. Pt reports shee worries about side effects of medications and at times does not take them consistently. She agreees to continue sertraline 100mg po daily. will hold wellbutrin as it may increase anxious mood and she does not take it regularly anyway. Continue buspar. PLAN 1. Admit to S1, CV, 5 minutes checks for safety. 2. continue sertraline 100mg po daily 3. obtain collateral information 4. aftercare planning. 5. Increase Zoloft up to 150 mg p.o. q.a.m. starting on April 09. 6. Results from MRI did not show major changes. 04/09/2024: No changes to current regimen 04/10/24: Showed sign writer hand 2 small dark spots, 1 on the sole of each foot. some discomfort when walking. No signs of erythema, swelling etc.. Does look consistent with tinea Nigra- ordered Clotrimazole Reason for continued inpatient stay Substantial Risk for: inability to function Time Spent With Patient Time: Total time managing care of this patient today ____ minutes.
[2024-04-10] MEDS: Nystatin Cream 15 GM TUBE 1 APPL TOPICAL (14:36)
[2024-04-10 20:00] VITALS: BP 123/77; PULSE 68; TEMP 36; O2SAT 96
[2024-04-10] MEDS: Atorvastatin Calcium 40 MG TABLET PO (20:21)
[2024-04-10] MEDS: Montelukast Sodium 10 MG TABLET PO (20:22)
[2024-04-10] MEDS: traZODone HCL 50 MG TABLET PO (20:22)
[2024-04-10] MEDS: Clotrimazole 1 % Cream 15 GM TUBE 1 APPL TOPICAL (20:24)
[2024-04-10 20:35] LABS: Glucose, Whole Blood 131 mg/dL (60-115)
[2024-04-10] MEDS: Acetaminophen 325 MG TABLET 650 MG PO (20:57)
[2024-04-11] MEDS: Omeprazole 20 MG CAPSULE.DR PO (06:23)
[2024-04-11] MEDS: Acetaminophen 325 MG TABLET 650 MG PO (06:25)
[2024-04-11 06:27] LABS: Glucose, Whole Blood 121 mg/dL (60-115)
[2024-04-11 08:00] VITALS: BP 118/67; PULSE 64; RESP 18; TEMP 36; O2SAT 98
[2024-04-11] MEDS: Cholecalciferol (Vitamin D3) 25 MCG TABLET 50 MCG PO (08:33)
[2024-04-11] MEDS: Aspirin 81 MG TAB.CHEW PO (08:33)
[2024-04-11] MEDS: Empagliflozin 25 MG TABLET PO (08:33)
[2024-04-11] MEDS: buPROPion HCl XL 150 MG TAB.ER.24H PO (08:33)
[2024-04-11] MEDS: cefuroxime axetiL 250 MG TABLET PO ×2 (08:33→20:44)
[2024-04-11] MEDS: Sertraline HCL 100 MG TABLET PO (08:33)
[2024-04-11] MEDS: metFORMIN HCl 1,000 MG TABLET 1000 MG PO ×2 (08:33→20:45)
[2024-04-11] MEDS: Clotrimazole 1 % Cream 15 GM TUBE 1 APPL TOPICAL (08:38)
--- NOTE | 2024-04-11 13:21 | PC.NURSE ---
Patient complaining of constipation. Positive bowel sounds all quadrants, hypoactive, abdomen soft and somewhat tender. Had a medium bowel movement 04/09 per bm list. Will give MOM as requested.
[2024-04-11] MEDS: Milk of Magnesia 30 ML ORAL.SUSP PO (13:39)
--- NOTE | 2024-04-11 14:19 | PC.NURSE ---
Dr. Ayala visited and updated regarding constipation, hypoactive bowel sounds, abdominal pain and last bowel movement 04/09. MD will order Colace and Senna secondary to increased Zoloft dose. MD also updated on small dark red spots both soles of feet, painful and swollen around the parimeter, no drainage. If spots become vesicles notify MD right away.
--- NOTE | 2024-04-11 15:37 | P.PNPSI_ITS ---
Subjective Subjective Date of Service: 04/11/24 Reason For Visit: SI Subjective Notes: Conditional Voluntary Interim History: The nursing staff reported the patient remains very depressed, hypoactive but attending to groups trying to get better. On interview the patient reports that she is constipated, she agreed to start senna and Colace. Mental Status Exam Mental Status Exam Patient Appearance: Appropriate Patient Orientation: Person and Situation Level of Consciousness: Awake and Appropriate Patient Behavior: Guarded and Passive Mood Description: Withdrawn Affect Description: Constricted Patient Cognition Impaired: Yes Ability to Follow Directions: Good Speech Pattern: Clear Hallucinations: None Delusions: Not Present Thought Process: Distracted and Slowed Thinking Thought Content: positive for [place] and positive for Circumstantial Judgement: Fair Diagnostics Vital Signs (24Hr): Vital Signs - 24 hr 04/10/24 20:00 04/11/24 08:00 Temperature 96.8 F 96.8 F Pulse Rate 68 64 Respiratory Rate 18 Blood Pressure 123/77 118/67 Pulse Oximetry 96 98 Oxygen Delivery Method Room Air Room Air BMI result Body Mass Index 35.2 Labs 04/04/24 22:19 04/06/24 08:07 Labs: Laboratory Results - last 48 hr 04/09/24 04/10/24 04/10/24 20:02 05:57 20:28 POC Glucose 167 H 109 131 H 04/11/24 06:22 POC Glucose 121 H Imaging Radiology Impressions: ITS Impressions Brain MRI 04/07/24 12:59 IMPRESSION: 1. No acute intracranial abnormalities. 2. Mild underlying microangiopathy. Medications Medications Current Medications Acetaminophen (Acetaminophen 325 Mg Tablet) 650 mg PO Q6H PRN PRN Reason: Headache/Pain Mild Scale (1-3) Last Admin: 04/11/24 06:25 Dose: 650 mg Al Hydroxide/Mg Hydroxide (Magnesium Hydrox/Alum Hydrox 30 Ml Oral.Susp) 30 ml PO Q6H PRN PRN Reason: Heartburn/Nausea Albuterol Sulfate (Albuterol Sulfate 90 Mcg 8 Gm Inhaler) 2 puff INHALE Q6H PRN PRN Reason: shortness of breath or wheezing Aspirin (Aspirin 81 Mg Tab.Chew) 81 mg PO DAILY [facility] Last Admin: 04/11/24 08:33 Dose: 81 mg Atorvastatin Calcium (Atorvastatin Calcium 40 Mg Tablet) 40 mg PO BEDTIME [facility] Last Admin: 04/10/24 20:21 Dose: 40 mg Bupropion HCl (Bupropion Hcl Xl 150 Mg Tab.Er.24h) 150 mg PO DAILY [facility] Last Admin: 04/11/24 08:33 Dose: 150 mg Cefuroxime Axetil (Cefuroxime Axetil 250 Mg Tablet) 250 mg PO BID [facility] Stop: 04/14/24 21:01 Last Admin: 04/11/24 08:33 Dose: 250 mg Clotrimazole (Clotrimazole 1 % Cream 15 Gm Tube) 1 appl TOPICAL BID [facility]; Protocol Last Admin: 04/11/24 08:38 Dose: 1 appl Empagliflozin (Empagliflozin 25 Mg Tablet) 25 mg PO DAILY [facility] Last Admin: 04/11/24 08:33 Dose: 25 mg Lorazepam (Lorazepam 0.5 Mg Tablet) 0.5 mg PO Q8H PRN PRN Reason: Anxiety Magnesium Hydroxide (Milk Of Magnesia 30 Ml Oral.Susp) 30 ml PO DAILY PRN PRN Reason: Constipation Last Admin: 04/11/24 13:39 Dose: 30 ml Metformin HCl (Metformin Hcl 1,000 Mg Tablet) 1,000 mg PO BID [facility] Last Admin: 04/11/24 08:33 Dose: 1,000 mg Montelukast Sodium (Montelukast Sodium 10 Mg Tablet) 10 mg PO BEDTIME [facility] Last Admin: 04/10/24 20:22 Dose: 10 mg Omeprazole (Omeprazole 20 Mg Capsule.Dr) 20 mg PO DAILY@0630 [facility] Last Admin: 04/11/24 06:23 Dose: 20 mg Sertraline HCl (Sertraline Hcl 50 Mg Tablet) 150 mg PO DAILY [facility] Trazodone HCl (Trazodone Hcl 50 Mg Tablet) 50 mg PO BEDTIME MRX1 PRN PRN Reason: Insomnia Last Admin: 04/10/24 20:22 Dose: 50 mg Vitamin D (Cholecalciferol (Vitamin D3) 25 Mcg Tablet) 50 mcg PO DAILY [facility] Last Admin: 04/11/24 08:33 Dose: 50 mcg Allergies Allergies Allergy/AdvReac Type Severity Reaction Status Date / Time egg [EGG] Allergy Intermediate VOMITING Verified 04/04/24 21:25 oxycodone [OXYCODONE] Allergy Intermediate NAUSEA/NIGH Verified 04/04/24 21:25 TMARES Penicillins [PCN] Allergy Intermediate RASH Verified 04/04/24 21:25 tramadol [TRAMADOL] Allergy Intermediate ITCHING Verified 04/04/24 21:25 acetaminophen [Percocet] Allergy Unknown none Verified 04/04/24 21:25 codeine Allergy Unknown nightmares Verified 04/04/24 21:25 Assessment & Plan Assessment & Plan (1) MDD (major depressive disorder), recurrent episode, moderate: Status: Acute Code(s): F33.1 - Major depressive disorder, recurrent, moderate Plan Ms. Higgins is a 58 year-old woman with long hx of depression, outpatient psychiatric treatment but no prior inpatient treatment who self presented to [facility] reporting increasing depression, passive suicidal ideation in context of feeling overwhelmed with caring for her two adopted teenager. We discussed risks, benefits and alternative treatment options. Pt reports shee worries about side effects of medications and at times does not take them consistently. She agreees to continue sertraline 100mg po daily. will hold wellbutrin as it may increase anxious mood and she does not take it regularly anyway. Continue buspar. PLAN 1. Admit to S1, CV, 5 minutes checks for safety. 2. continue sertraline 100mg po daily 3. obtain collateral information 4. aftercare planning. 5. Increase Zoloft up to 150 mg p.o. q.a.m. starting on April 09. 6. Results from MRI did not show major changes. 7. Start bowel regimen due to constipation Reason for continued inpatient stay Substantial Risk for: inability to function, rapid decompensation and med/psych decompensation Time Spent With Patient Time: Total time managing care of this patient today _20___ minutes.
[2024-04-11 20:00] VITALS: BP 111/58; PULSE 76; RESP 18; TEMP 36.6; O2SAT 96
[2024-04-11 20:41] LABS: Glucose, Whole Blood 134 mg/dL (60-115)
[2024-04-11] MEDS: Sennosides 8.6 MG TABLET PO (20:43)
[2024-04-11] MEDS: traZODone HCL 50 MG TABLET PO (20:43)
[2024-04-11] MEDS: Atorvastatin Calcium 40 MG TABLET PO (20:44)
[2024-04-11] MEDS: Montelukast Sodium 10 MG TABLET PO (20:45)
[2024-04-11] MEDS: Docusate Sodium 100 MG CAPSULE PO (21:23)
[2024-04-12] MEDS: Omeprazole 20 MG CAPSULE.DR PO (05:52)
[2024-04-12 06:59] LABS: Glucose, Whole Blood 120 mg/dL (60-115)
[2024-04-12 07:55] VITALS: BP 98/56; PULSE 62; RESP 16; TEMP 36.4; O2SAT 98
[2024-04-12] MEDS: Cholecalciferol (Vitamin D3) 25 MCG TABLET 50 MCG PO (08:12)
[2024-04-12] MEDS: Empagliflozin 25 MG TABLET PO (08:12)
[2024-04-12] MEDS: Aspirin 81 MG TAB.CHEW PO (08:13)
[2024-04-12] MEDS: buPROPion HCl XL 150 MG TAB.ER.24H PO (08:13)
[2024-04-12] MEDS: metFORMIN HCl 1,000 MG TABLET 1000 MG PO ×2 (08:13→19:45)
[2024-04-12] MEDS: Clotrimazole 1 % Cream 15 GM TUBE 1 APPL TOPICAL (08:13)
[2024-04-12] MEDS: cefuroxime axetiL 250 MG TABLET PO ×2 (08:13→20:37)
[2024-04-12] MEDS: Sertraline HCL 50 MG TABLET 150 MG PO (08:13)
[2024-04-12] MEDS: Docusate Sodium 100 MG CAPSULE PO ×2 (08:13→19:47)
[2024-04-12] MEDS: bisacodyL 10 MG SUPP.RECT PR (09:46)
--- NOTE | 2024-04-12 11:36 | P.PNPSI_ITS ---
Subjective Subjective Date of Service: 04/12/24 Reason For Visit: SI Subjective Notes: Conditional Voluntary Interim History: The nursing staff reported the patient remains constipated. Senna and Colace has not work. We are ordering a Dulcolax suppository today. On interview the patient reports still dysphoria no side-effects with the change of her Zoloft. The social services designee reported that his family will come to visit at 13:30. The minor sore going to travel out of the state with her oldest daughter. Mental Status Exam Mental Status Exam Patient Appearance: Appropriate Patient Orientation: Person and Situation Level of Consciousness: Awake and Appropriate Patient Behavior: Guarded and Passive Mood Description: Withdrawn Affect Description: Constricted Patient Cognition Impaired: Yes Ability to Follow Directions: Good Speech Pattern: Clear Hallucinations: None Delusions: Not Present Thought Process: Linear Thought Content: positive for Circumstantial Judgement: Fair Diagnostics Vital Signs (24Hr): Vital Signs - 24 hr 04/11/24 20:00 04/12/24 07:55 Temperature 97.8 F 97.6 F Pulse Rate 76 62 Respiratory Rate 18 16 Blood Pressure 111/58 L 98/56 L Pulse Oximetry 96 98 Oxygen Delivery Method Room Air Room Air BMI result Body Mass Index 35.2 Labs 04/04/24 22:19 04/06/24 08:07 Labs: Laboratory Results - last 48 hr 04/10/24 04/11/24 04/11/24 20:28 06:22 20:35 POC Glucose 131 H 121 H 134 H 04/12/24 06:25 POC Glucose 120 H Imaging Radiology Impressions: ITS Impressions Brain MRI 04/07/24 12:59 IMPRESSION: 1. No acute intracranial abnormalities. 2. Mild underlying microangiopathy. Medications Medications Current Medications Acetaminophen (Acetaminophen 325 Mg Tablet) 650 mg PO Q6H PRN PRN Reason: Headache/Pain Mild Scale (1-3) Last Admin: 04/11/24 06:25 Dose: 650 mg Al Hydroxide/Mg Hydroxide (Magnesium Hydrox/Alum Hydrox 30 Ml Oral.Susp) 30 ml PO Q6H PRN PRN Reason: Heartburn/Nausea Albuterol Sulfate (Albuterol Sulfate 90 Mcg 8 Gm Inhaler) 2 puff INHALE Q6H PRN PRN Reason: shortness of breath or wheezing Aspirin (Aspirin 81 Mg Tab.Chew) 81 mg PO DAILY [facility] Last Admin: 04/12/24 08:13 Dose: 81 mg Atorvastatin Calcium (Atorvastatin Calcium 40 Mg Tablet) 40 mg PO BEDTIME [facility] Last Admin: 04/11/24 20:44 Dose: 40 mg Bupropion HCl (Bupropion Hcl Xl 150 Mg Tab.Er.24h) 150 mg PO DAILY [facility] Last Admin: 04/12/24 08:13 Dose: 150 mg Cefuroxime Axetil (Cefuroxime Axetil 250 Mg Tablet) 250 mg PO BID [facility] Stop: 04/14/24 21:01 Last Admin: 04/12/24 08:13 Dose: 250 mg Clotrimazole (Clotrimazole 1 % Cream 15 Gm Tube) 1 appl TOPICAL BID [facility]; Protocol Last Admin: 04/12/24 08:13 Dose: 1 appl Docusate Sodium (Docusate Sodium 100 Mg Capsule) 100 mg PO BID [facility] Last Admin: 04/12/24 08:13 Dose: 100 mg Empagliflozin (Empagliflozin 25 Mg Tablet) 25 mg PO DAILY [facility] Last Admin: 04/12/24 08:12 Dose: 25 mg Lorazepam (Lorazepam 0.5 Mg Tablet) 0.5 mg PO Q8H PRN PRN Reason: Anxiety Magnesium Hydroxide (Milk Of Magnesia 30 Ml Oral.Susp) 30 ml PO DAILY PRN PRN Reason: Constipation Last Admin: 04/11/24 13:39 Dose: 30 ml Metformin HCl (Metformin Hcl 1,000 Mg Tablet) 1,000 mg PO BID [facility] Last Admin: 04/12/24 08:13 Dose: 1,000 mg Montelukast Sodium (Montelukast Sodium 10 Mg Tablet) 10 mg PO BEDTIME [facility] Last Admin: 04/11/24 20:45 Dose: 10 mg Omeprazole (Omeprazole 20 Mg Capsule.Dr) 20 mg PO DAILY@0630 [facility] Last Admin: 04/12/24 05:52 Dose: 20 mg Senna (Sennosides 8.6 Mg Tablet) 8.6 mg PO BEDTIME [facility] Last Admin: 04/11/24 20:43 Dose: 8.6 mg Sertraline HCl (Sertraline Hcl 50 Mg Tablet) 150 mg PO DAILY [facility] Last Admin: 04/12/24 08:13 Dose: 150 mg Trazodone HCl (Trazodone Hcl 50 Mg Tablet) 50 mg PO BEDTIME MRX1 PRN PRN Reason: Insomnia Last Admin: 04/11/24 20:43 Dose: 50 mg Vitamin D (Cholecalciferol (Vitamin D3) 25 Mcg Tablet) 50 mcg PO DAILY [facility] Last Admin: 04/12/24 08:12 Dose: 50 mcg Allergies Allergies Allergy/AdvReac Type Severity Reaction Status Date / Time egg [EGG] Allergy Intermediate VOMITING Verified 04/04/24 21:25 oxycodone [OXYCODONE] Allergy Intermediate NAUSEA/NIGH Verified 04/04/24 21:25 TMARES Penicillins [PCN] Allergy Intermediate RASH Verified 04/04/24 21:25 tramadol [TRAMADOL] Allergy Intermediate ITCHING Verified 04/04/24 21:25 acetaminophen [Percocet] Allergy Unknown none Verified 04/04/24 21:25 codeine Allergy Unknown nightmares Verified 04/04/24 21:25 Assessment & Plan Assessment & Plan (1) MDD (major depressive disorder), recurrent episode, moderate: Status: Acute Code(s): F33.1 - Major depressive disorder, recurrent, moderate Plan Ms. Higgins is a 58 year-old woman with long hx of depression, outpatient psychiatric treatment but no prior inpatient treatment who self [place] [facility] [place] increasing depression, passive suicidal ideation in context of feeling overwhelmed with caring for her two adopted teenager. We discussed risks, benefits and alternative treatment options. Pt reports shee worries about side effects of medications and at times does not take them consistently. She agreees to continue sertraline 100mg po daily. will hold wellbutrin as it may increase anxious mood and she does not take it regularly anyway. Continue buspar. PLAN 1. Admit to S1, CV, 5 minutes checks for safety. 2. continue sertraline 100mg po daily 3. obtain collateral information 4. aftercare planning. 5. Increase Zoloft up to 150 mg p.o. q.a.m. starting on April 09. 6. Results from MRI did not show major changes. 7. Start bowel regimen due to constipation Reason for continued inpatient stay Substantial Risk for: inability to function, rapid decompensation and med/psych decompensation Time Spent With Patient Time: Total time managing care of this patient today __20__ minutes.
[2024-04-12] MEDS: Atorvastatin Calcium 40 MG TABLET PO (19:45)
[2024-04-12] MEDS: Sennosides 8.6 MG TABLET PO (19:46)
[2024-04-12] MEDS: Montelukast Sodium 10 MG TABLET PO (19:46)
[2024-04-12] MEDS: traZODone HCL 50 MG TABLET PO (19:46)
[2024-04-12 20:00] VITALS: BP 115/64; PULSE 72; TEMP 36.3; O2SAT 99
[2024-04-12 20:18] LABS: Glucose, Whole Blood 158 mg/dL (60-115)
[2024-04-13] MEDS: Omeprazole 20 MG CAPSULE.DR PO (05:59)
[2024-04-13 06:30] LABS: Glucose, Whole Blood 133 mg/dL (60-115)
[2024-04-13 08:00] VITALS: BP 115/75; PULSE 73; RESP 18; TEMP 36.8; O2SAT 98
[2024-04-13] MEDS: buPROPion HCl XL 150 MG TAB.ER.24H PO (08:27)
[2024-04-13] MEDS: Sertraline HCL 50 MG TABLET 150 MG PO (08:27)
[2024-04-13] MEDS: Empagliflozin 25 MG TABLET PO (08:28)
[2024-04-13] MEDS: Docusate Sodium 100 MG CAPSULE PO ×2 (08:28→20:56)
[2024-04-13] MEDS: Cholecalciferol (Vitamin D3) 25 MCG TABLET 50 MCG PO (08:28)
[2024-04-13] MEDS: cefuroxime axetiL 250 MG TABLET PO ×2 (08:28→20:56)
[2024-04-13] MEDS: Aspirin 81 MG TAB.CHEW PO (08:28)
[2024-04-13] MEDS: metFORMIN HCl 1,000 MG TABLET 1000 MG PO ×2 (08:28→20:56)
--- NOTE | 2024-04-13 15:39 | P.PNPSI_ITS ---
Subjective Subjective Date of Service: 04/13/24 Reason For Visit: SI Subjective Notes: Conditional Voluntary Interim History: The nursing staff reported the patient had been hypoactive. Even though the staff has noticed that she is a little more emotionally brighter. She slept well last night. On interview the patient reported that she was having neuropathic pain. In the past she used to use Cymbalta and she tried gabapentin but it over-sedated. We discussed at length risks, benefits, side-effects and alternatives and she agreed and a change of medications. Mental Status Exam Mental Status Exam Patient Appearance: Well Grooomed and Appropriate Patient Orientation: Person and Situation Level of Consciousness: Awake and Appropriate Patient Behavior: Guarded and Passive Mood Description: Withdrawn Affect Description: Constricted Patient Cognition Impaired: Yes Ability to Follow Directions: Good Speech Pattern: Clear Hallucinations: None Delusions: Not Present Thought Process: Goal Oriented Thought Content: positive for [place] and positive for [place] of Content Judgement: Fair Diagnostics Vital Signs (24Hr): Vital Signs - 24 hr 04/12/24 20:00 04/13/24 08:00 Temperature 97.4 F 98.2 F Pulse Rate 72 73 Respiratory Rate 18 Blood Pressure 115/64 115/75 Pulse Oximetry 99 98 Oxygen Delivery Method Room Air Room Air BMI result Body Mass Index 35.2 Labs 04/04/24 22:19 04/06/24 08:07 Labs: Laboratory Results - last 48 hr 04/11/24 04/12/24 04/12/24 20:35 06:25 19:44 POC Glucose 134 H 120 H 158 H 04/13/24 06:00 POC Glucose 133 H Imaging Radiology Impressions: ITS Impressions Brain MRI 04/07/24 12:59 IMPRESSION: 1. No acute intracranial abnormalities. 2. Mild underlying microangiopathy. Medications Medications Current Medications Acetaminophen (Acetaminophen 325 Mg Tablet) 650 mg PO Q6H PRN PRN Reason: Headache/Pain Mild Scale (1-3) Last Admin: 04/11/24 06:25 Dose: 650 mg Al Hydroxide/Mg Hydroxide (Magnesium Hydrox/Alum Hydrox 30 Ml Oral.Susp) 30 ml PO Q6H PRN PRN Reason: Heartburn/Nausea Albuterol Sulfate (Albuterol Sulfate 90 Mcg 8 Gm Inhaler) 2 puff INHALE Q6H PRN PRN Reason: shortness of breath or wheezing Aspirin (Aspirin 81 Mg Tab.Chew) 81 mg PO DAILY [facility] Last Admin: 04/13/24 08:28 Dose: 81 mg Atorvastatin Calcium (Atorvastatin Calcium 40 Mg Tablet) 40 mg PO BEDTIME [facility] Last Admin: 04/12/24 19:45 Dose: 40 mg Bupropion HCl (Bupropion Hcl Xl 150 Mg Tab.Er.24h) 150 mg PO DAILY [facility] Last Admin: 04/13/24 08:27 Dose: 150 mg Cefuroxime Axetil (Cefuroxime Axetil 250 Mg Tablet) 250 mg PO BID [facility] Stop: 04/14/24 21:01 Last Admin: 04/13/24 08:28 Dose: 250 mg Clotrimazole (Clotrimazole 1 % Cream 15 Gm Tube) 1 appl TOPICAL BID [facility]; Protocol Last Admin: 04/13/24 08:51 Dose: Not Given Docusate Sodium (Docusate Sodium 100 Mg Capsule) 100 mg PO BID [facility] Last Admin: 04/13/24 08:28 Dose: 100 mg Empagliflozin (Empagliflozin 25 Mg Tablet) 25 mg PO DAILY [facility] Last Admin: 04/13/24 08:28 Dose: 25 mg Lorazepam (Lorazepam 0.5 Mg Tablet) 0.5 mg PO Q8H PRN PRN Reason: Anxiety Magnesium Hydroxide (Milk Of Magnesia 30 Ml Oral.Susp) 30 ml PO DAILY PRN PRN Reason: Constipation Last Admin: 04/11/24 13:39 Dose: 30 ml Metformin HCl (Metformin Hcl 1,000 Mg Tablet) 1,000 mg PO BID [facility] Last Admin: 04/13/24 08:28 Dose: 1,000 mg Montelukast Sodium (Montelukast Sodium 10 Mg Tablet) 10 mg PO BEDTIME [facility] Last Admin: 04/12/24 19:46 Dose: 10 mg Omeprazole (Omeprazole 20 Mg Capsule.Dr) 20 mg PO DAILY@0630 [facility] Last Admin: 04/13/24 05:59 Dose: 20 mg Senna (Sennosides 8.6 Mg Tablet) 8.6 mg PO BEDTIME [facility] Last Admin: 04/12/24 19:46 Dose: 8.6 mg Sertraline HCl (Sertraline Hcl 50 Mg Tablet) 150 mg PO DAILY [facility] Last Admin: 04/13/24 08:27 Dose: 150 mg Trazodone HCl (Trazodone Hcl 50 Mg Tablet) 50 mg PO BEDTIME MRX1 PRN PRN Reason: Insomnia Last Admin: 04/12/24 19:46 Dose: 50 mg Vitamin D (Cholecalciferol (Vitamin D3) 25 Mcg Tablet) 50 mcg PO DAILY [facility] Last Admin: 04/13/24 08:28 Dose: 50 mcg Allergies Allergies Allergy/AdvReac Type Severity Reaction Status Date / Time egg [EGG] Allergy Intermediate VOMITING Verified 04/04/24 21:25 oxycodone [OXYCODONE] Allergy Intermediate NAUSEA/NIGH Verified 04/04/24 21:25 TMARES Penicillins [PCN] Allergy Intermediate RASH Verified 04/04/24 21:25 tramadol [TRAMADOL] Allergy Intermediate ITCHING Verified 04/04/24 21:25 acetaminophen [Percocet] Allergy Unknown none Verified 04/04/24 21:25 codeine Allergy Unknown nightmares Verified 04/04/24 21:25 Assessment & Plan Assessment & Plan (1) MDD (major depressive disorder), recurrent episode, moderate: Status: Acute Code(s): F33.1 - Major depressive disorder, recurrent, moderate Plan Ms. Higgins is a 58 year-old woman with long hx of depression, outpatient psychiatric treatment but no prior inpatient treatment who self presented to [facility] reporting increasing depression, passive suicidal ideation in context of feeling overwhelmed with caring for her two adopted teenager. We discussed risks, benefits and alternative treatment options. Pt reports shee worries about side effects of medications and at times does not take them consistently. She agreees to continue sertraline 100mg po daily. will hold wellbutrin as it may increase anxious mood and she does not take it regularly anyway. Continue buspar. PLAN 1. Admit to S1, CV, 5 minutes checks for safety. 2. continue sertraline 100mg po daily 3. obtain collateral information 4. aftercare planning. 5. Increase Zoloft up to 150 mg p.o. q.a.m. starting on April 09. 6. Results from MRI did not show major changes. 7. Start bowel regimen due to constipation . 8. Start Cymbalta 20 mg p.o. daily on April 14 for anxiety, depression and neuropathic pain.. 9. Discontinue Wellbutrin XL. Reason for continued inpatient stay Substantial Risk for: inability to function, rapid decompensation and med/psych decompensation Time Spent With Patient Time: Total time managing care of this patient today __20__ minutes.
[2024-04-13 20:00] VITALS: BP 112/74; PULSE 68; RESP 18; TEMP 35.9; O2SAT 98
[2024-04-13 20:06] LABS: Glucose, Whole Blood 113 mg/dL (60-115)
[2024-04-13] MEDS: Montelukast Sodium 10 MG TABLET PO (20:57)
[2024-04-13] MEDS: Clotrimazole 1 % Cream 15 GM TUBE 1 APPL TOPICAL (20:57)
[2024-04-13] MEDS: Atorvastatin Calcium 40 MG TABLET PO (20:57)
[2024-04-13] MEDS: Sennosides 8.6 MG TABLET PO (20:57)
[2024-04-13] MEDS: traZODone HCL 50 MG TABLET PO (21:00)
[2024-04-14] MEDS: Omeprazole 20 MG CAPSULE.DR PO (06:43)
[2024-04-14 06:54] LABS: Glucose, Whole Blood 135 mg/dL (60-115)
[2024-04-14 08:00] VITALS: BP 117/71; PULSE 68; RESP 18; TEMP 36.6; O2SAT 99
[2024-04-14] MEDS: metFORMIN HCl 1,000 MG TABLET 1000 MG PO ×2 (09:02→20:48)
[2024-04-14] MEDS: Clotrimazole 1 % Cream 15 GM TUBE 1 APPL TOPICAL ×2 (09:02→20:56)
[2024-04-14] MEDS: cefuroxime axetiL 250 MG TABLET PO ×2 (09:02→20:48)
[2024-04-14] MEDS: DULoxetine HCl 20 MG CAPSULE.DR PO ×2 (09:03→20:48)
[2024-04-14] MEDS: Docusate Sodium 100 MG CAPSULE PO ×2 (09:03→20:48)
[2024-04-14] MEDS: Aspirin 81 MG TAB.CHEW PO (09:03)
[2024-04-14] MEDS: Sertraline HCL 50 MG TABLET 150 MG PO (09:03)
[2024-04-14] MEDS: Empagliflozin 25 MG TABLET PO (09:04)
[2024-04-14] MEDS: Acetaminophen 325 MG TABLET 650 MG PO (09:09)
[2024-04-14 09:45] LABS: Creatinine Clr Calc Pharmacy 91.3; Estimated Glomerular Filt Rate > 60
[2024-04-14] MEDS: Cholecalciferol (Vitamin D3) 25 MCG TABLET 50 MCG PO (11:30)
[2024-04-14 13:04] VITALS: BMI 34.8
--- NOTE | 2024-04-14 13:30 | P.PNPSI_ITS ---
Subjective Subjective Date of Service: 04/14/24 Reason For Visit: SI Subjective Notes: Conditional Voluntary Interim History: The nursing staff reported the patient had been very dysphoric, no changes in her mental status. She slept 8 hours. The psychologist social reported that she complained of neuropathic pain and we discuss her case. 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 On interview the patient reports still feeling very dysphoric and anxious about next Thursday that she will meet with her family. We discussed options and she agreed to increase Cymbalta to 20 mg p.o. b.i.d. to target depression, anxiety and neuropathic pain. Mental Status Exam Mental Status Exam Patient Appearance: Appropriate Patient Orientation: Person and Situation Level of Consciousness: Awake and Appropriate Patient Behavior: Guarded and Passive Mood Description: Withdrawn Affect Description: Constricted Patient Cognition Impaired: Yes Ability to Follow Directions: Good Speech Pattern: Clear Hallucinations: None Delusions: Not Present Thought Process: Distracted and Linear Thought Content: positive for [place] and positive for Circumstantial Judgement: Fair Diagnostics Vital Signs (24Hr): Vital Signs - 24 hr 04/13/24 20:00 04/14/24 08:00 Temperature 96.6 F L 97.8 F Pulse Rate 68 68 Respiratory Rate 18 18 Blood Pressure 112/74 117/71 Pulse Oximetry 98 99 Oxygen Delivery Method Room Air Room Air BMI result Body Mass Index 34.8 Labs 04/04/24 22:19 04/14/24 09:21 Labs: Laboratory Results - last 48 hr 04/12/24 04/13/24 04/13/24 19:44 06:00 19:48 Creatinine Estim Creat Clear Calc Estimated GFR POC Glucose 158 H 133 H 113 04/14/24 04/14/24 06:43 09:21 Creatinine 0.75 Estim Creat Clear Calc 91.3 Estimated GFR > 60 POC Glucose 135 H Imaging Radiology Impressions: ITS Impressions Brain MRI 04/07/24 12:59 IMPRESSION: 1. No acute intracranial abnormalities. 2. Mild underlying microangiopathy. Medications Medications Current Medications Acetaminophen (Acetaminophen 325 Mg Tablet) 650 mg PO Q6H PRN PRN Reason: Headache/Pain Mild Scale (1-3) Last Admin: 04/14/24 09:09 Dose: 650 mg Al Hydroxide/Mg Hydroxide (Magnesium Hydrox/Alum Hydrox 30 Ml Oral.Susp) 30 ml PO Q6H PRN PRN Reason: Heartburn/Nausea Albuterol Sulfate (Albuterol Sulfate 90 Mcg 8 Gm Inhaler) 2 puff INHALE Q6H PRN PRN Reason: shortness of breath or wheezing Aspirin (Aspirin 81 Mg Tab.Chew) 81 mg PO DAILY [facility] Last Admin: 04/14/24 09:03 Dose: 81 mg Atorvastatin Calcium (Atorvastatin Calcium 40 Mg Tablet) 40 mg PO BEDTIME [facility] Last Admin: 04/13/24 20:57 Dose: 40 mg Cefuroxime Axetil (Cefuroxime Axetil 250 Mg Tablet) 250 mg PO BID [facility] Stop: 04/14/24 21:01 Last Admin: 04/14/24 09:02 Dose: 250 mg Clotrimazole (Clotrimazole 1 % Cream 15 Gm Tube) 1 appl TOPICAL BID [facility]; Protocol Last Admin: 04/14/24 09:02 Dose: 1 appl Docusate Sodium (Docusate Sodium 100 Mg Capsule) 100 mg PO BID [facility] Last Admin: 04/14/24 09:03 Dose: 100 mg Duloxetine HCl (Duloxetine Hcl 20 Mg Capsule.) 20 mg PO BID [facility] Empagliflozin (Empagliflozin 25 Mg Tablet) 25 mg PO DAILY [facility] Last Admin: 04/14/24 09:04 Dose: 25 mg Lorazepam (Lorazepam 0.5 Mg Tablet) 0.5 mg PO Q8H PRN PRN Reason: Anxiety Magnesium Hydroxide (Milk Of Magnesia 30 Ml Oral.Susp) 30 ml PO DAILY PRN PRN Reason: Constipation Last Admin: 04/11/24 13:39 Dose: 30 ml Metformin HCl (Metformin Hcl 1,000 Mg Tablet) 1,000 mg PO BID [facility] Last Admin: 04/14/24 09:02 Dose: 1,000 mg Montelukast Sodium (Montelukast Sodium 10 Mg Tablet) 10 mg PO BEDTIME [facility] Last Admin: 04/13/24 20:57 Dose: 10 mg Omeprazole (Omeprazole 20 Mg Capsule.) 20 mg PO DAILY@0630 [facility] Last Admin: 04/14/24 06:43 Dose: 20 mg Senna (Sennosides 8.6 Mg Tablet) 8.6 mg PO BEDTIME [facility] Last Admin: 04/13/24 20:57 Dose: 8.6 mg Sertraline HCl (Sertraline Hcl 50 Mg Tablet) 150 mg PO DAILY [facility] Last Admin: 04/14/24 09:03 Dose: 150 mg Trazodone HCl (Trazodone Hcl 50 Mg Tablet) 50 mg PO BEDTIME MRX1 PRN PRN Reason: Insomnia Last Admin: 04/13/24 21:00 Dose: 50 mg Vitamin D (Cholecalciferol (Vitamin D3) 25 Mcg Tablet) 50 mcg PO DAILY [facility] Last Admin: 04/14/24 11:30 Dose: 50 mcg Allergies Allergies Allergy/AdvReac Type Severity Reaction Status Date / Time egg [EGG] Allergy Intermediate VOMITING Verified 04/04/24 21:25 oxycodone [OXYCODONE] Allergy Intermediate NAUSEA/NIGH Verified 04/04/24 21:25 TMARES Penicillins [PCN] Allergy Intermediate RASH Verified 04/04/24 21:25 tramadol [TRAMADOL] Allergy Intermediate ITCHING Verified 04/04/24 21:25 acetaminophen [Percocet] Allergy Unknown none Verified 04/04/24 21:25 codeine Allergy Unknown nightmares Verified 04/04/24 21:25 Assessment & Plan Assessment & Plan (1) MDD (major depressive disorder), recurrent episode, moderate: Status: Acute Code(s): F33.1 - Major depressive disorder, recurrent, moderate Plan Ms. Higgins is a 58 year-old woman with long hx of depression, outpatient psychiatric treatment but no prior inpatient treatment who self presented to [facility] reporting increasing depression, passive suicidal ideation in context of feeling overwhelmed with caring for her two adopted teenager. We discussed risks, benefits and alternative treatment options. Pt reports shee worries about side effects of medications and at times does not take them consistently. She agreees to continue sertraline 100mg po daily. will hold wellbutrin as it may increase anxious mood and she does not take it regularly anyway. Continue buspar. PLAN 1. Admit to S1, CV, 5 minutes checks for safety. 2. continue sertraline 100mg po daily 3. obtain collateral information 4. aftercare planning. 5. Increase Zoloft up to 150 mg p.o. q.a.m. starting on April 09. 6. Results from MRI did not show major changes. 7. Start bowel regimen due to constipation . 8. Start Cymbalta 20 mg p.o. daily on April 14 for anxiety, depression and neuropathic pain.. On April 14 we are increasing to 20 mg p.o. b.i.d. to target depression, anxiety and chronic pain. 9. Discontinue Wellbutrin XL. Reason for continued inpatient stay Substantial Risk for: inability to function, rapid decompensation and med/psych decompensation Time Spent With Patient Time: Total time managing care of this patient today __20__ minutes.
[2024-04-14 19:55] VITALS: BP 114/64; PULSE 68; RESP 18; TEMP 36.1; O2SAT 98
[2024-04-14 19:59] LABS: Glucose, Whole Blood 142 mg/dL (60-115)
[2024-04-14 20:00] VITALS: BP 114/64; PULSE 68; RESP 18; TEMP 36.1; O2SAT 98
[2024-04-14] MEDS: Montelukast Sodium 10 MG TABLET PO (20:48)
[2024-04-14] MEDS: Sennosides 8.6 MG TABLET PO (20:48)
[2024-04-14] MEDS: Atorvastatin Calcium 40 MG TABLET PO (20:48)
[2024-04-14] MEDS: traZODone HCL 50 MG TABLET PO (20:48)
[2024-04-15] MEDS: Omeprazole 20 MG CAPSULE.DR PO (06:38)
[2024-04-15 06:50] LABS: Glucose, Whole Blood 132 mg/dL (60-115)
[2024-04-15 08:00] VITALS: BP 106/67; PULSE 60; RESP 16; TEMP 36.1; O2SAT 97
[2024-04-15] MEDS: Sertraline HCL 50 MG TABLET 150 MG PO (08:20)
[2024-04-15] MEDS: Empagliflozin 25 MG TABLET PO (08:21)
[2024-04-15] MEDS: DULoxetine HCl 20 MG CAPSULE.DR PO (08:21)
[2024-04-15] MEDS: Cholecalciferol (Vitamin D3) 25 MCG TABLET 50 MCG PO (08:21)
[2024-04-15] MEDS: metFORMIN HCl 1,000 MG TABLET 1000 MG PO ×2 (08:21→20:34)
[2024-04-15] MEDS: Aspirin 81 MG TAB.CHEW PO (08:21)
[2024-04-15] MEDS: Docusate Sodium 100 MG CAPSULE PO ×2 (08:21→20:32)
--- NOTE | 2024-04-15 14:23 | HO.PSYCHPN ---
Subjective Subjective Date of Service: 04/15/24 Reason For Visit: SI Subjective Notes: Conditional Voluntary Interim History: The nursing staff reported the patient remains depressed, dysphoric she took a shower yesterday and she had been eating better. She slept 8 hours. The occupational therapist reported that she has more eye contact during the groups. On interview the patient remains depression side-effects with the addition of Cymbalta. We are going to increase up to 30 mg p.o. b.i.d. and next Thursday we will increase it. Mental Status Exam Mental Status Exam Patient Appearance: Well Grooomed and Appropriate Patient Orientation: Person and Situation Level of Consciousness: Awake and Appropriate Patient Behavior: Guarded and Passive Mood Description: Withdrawn and Depressed Affect Description: Constricted Patient Cognition Impaired: Yes Ability to Follow Directions: Good Speech Pattern: Clear Hallucinations: None Delusions: Not Present Thought Process: Distracted and Slowed Thinking Thought Content: positive for [place] and positive for Poverty of Content Judgement: Fair Diagnostics Vital Signs (24Hr): Vital Signs - 24 hr 04/14/24 19:55 04/14/24 20:00 04/15/24 08:00 Temperature 97.0 F 97 F 96.9 F Pulse Rate 68 68 60 Respiratory Rate 18 18 16 Blood Pressure 114/64 114/64 106/67 Pulse Oximetry 98 98 97 Oxygen Delivery Method Room Air Room Air Room Air BMI result Body Mass Index 34.8 Labs 04/04/24 22:19 04/14/24 09:21 Labs: Laboratory Results - last 48 hr 04/13/24 04/14/24 04/14/24 19:48 06:43 09:21 Creatinine 0.75 Estim Creat Clear Calc 91.3 Estimated GFR > 60 POC Glucose 113 135 H 04/14/24 04/15/24 19:50 06:39 Creatinine Estim Creat Clear Calc Estimated GFR POC Glucose 142 H 132 H Imaging Radiology Impressions: ITS Impressions Brain MRI 04/07/24 12:59 IMPRESSION: 1. No acute intracranial abnormalities. 2. Mild underlying microangiopathy. Medications Medications Current Medications Acetaminophen (Acetaminophen 325 Mg Tablet) 650 mg PO Q6H PRN PRN Reason: Headache/Pain Mild Scale (1-3) Last Admin: 04/14/24 09:09 Dose: 650 mg Al Hydroxide/Mg Hydroxide (Magnesium Hydrox/Alum Hydrox 30 Ml Oral.Susp) 30 ml PO Q6H PRN PRN Reason: Heartburn/Nausea Albuterol Sulfate (Albuterol Sulfate 90 Mcg 8 Gm Inhaler) 2 puff INHALE Q6H PRN PRN Reason: shortness of breath or wheezing Aspirin (Aspirin 81 Mg Tab.Chew) 81 mg PO DAILY [facility] Last Admin: 04/15/24 08:21 Dose: 81 mg Atorvastatin Calcium (Atorvastatin Calcium 40 Mg Tablet) 40 mg PO BEDTIME [facility] Last Admin: 04/14/24 20:48 Dose: 40 mg Clotrimazole (Clotrimazole 1 % Cream 15 Gm Tube) 1 appl TOPICAL BID [facility]; Protocol Last Admin: 04/15/24 08:24 Dose: Not Given Docusate Sodium (Docusate Sodium 100 Mg Capsule) 100 mg PO BID [facility] Last Admin: 04/15/24 08:21 Dose: 100 mg Duloxetine HCl (Duloxetine Hcl 20 Mg Capsule.Dr) 20 mg PO BID [facility] Last Admin: 04/15/24 08:21 Dose: 20 mg Empagliflozin (Empagliflozin 25 Mg Tablet) 25 mg PO DAILY [facility] Last Admin: 04/15/24 08:21 Dose: 25 mg Lorazepam (Lorazepam 0.5 Mg Tablet) 0.5 mg PO Q8H PRN PRN Reason: Anxiety Magnesium Hydroxide (Milk Of Magnesia 30 Ml Oral.Susp) 30 ml PO DAILY PRN PRN Reason: Constipation Last Admin: 04/11/24 13:39 Dose: 30 ml Metformin HCl (Metformin Hcl 1,000 Mg Tablet) 1,000 mg PO BID [facility] Last Admin: 04/15/24 08:21 Dose: 1,000 mg Montelukast Sodium (Montelukast Sodium 10 Mg Tablet) 10 mg PO BEDTIME [facility] Last Admin: 04/14/24 20:48 Dose: 10 mg Omeprazole (Omeprazole 20 Mg Capsule.Dr) 20 mg PO DAILY@0630 [facility] Last Admin: 04/15/24 06:38 Dose: 20 mg Senna (Sennosides 8.6 Mg Tablet) 8.6 mg PO BEDTIME [facility] Last Admin: 04/14/24 20:48 Dose: 8.6 mg Sertraline HCl (Sertraline Hcl 50 Mg Tablet) 150 mg PO DAILY [facility] Last Admin: 04/15/24 08:20 Dose: 150 mg Trazodone HCl (Trazodone Hcl 50 Mg Tablet) 50 mg PO BEDTIME MRX1 PRN PRN Reason: Insomnia Last Admin: 04/14/24 20:48 Dose: 50 mg Vitamin D (Cholecalciferol (Vitamin D3) 25 Mcg Tablet) 50 mcg PO DAILY [facility] Last Admin: 04/15/24 08:21 Dose: 50 mcg Allergies Allergies Allergy/AdvReac Type Severity Reaction Status Date / Time egg [EGG] Allergy Intermediate VOMITING Verified 04/04/24 21:25 oxycodone [OXYCODONE] Allergy Intermediate NAUSEA/NIGH Verified 04/04/24 21:25 TMARES Penicillins [PCN] Allergy Intermediate RASH Verified 04/04/24 21:25 tramadol [TRAMADOL] Allergy Intermediate ITCHING Verified 04/04/24 21:25 acetaminophen [Percocet] Allergy Unknown none Verified 04/04/24 21:25 codeine Allergy Unknown nightmares Verified 04/04/24 21:25 Assessment & Plan Assessment & Plan (1) MDD (major depressive disorder), recurrent episode, moderate: Status: Acute Code(s): F33.1 - Major depressive disorder, recurrent, moderate Plan Ms. Higgins is a 58 year-old woman with long hx of depression, outpatient psychiatric treatment but no prior inpatient treatment who [place] [facility] [place] increasing depression, passive suicidal ideation in context of feeling overwhelmed with caring for her two adopted teenager. We discussed risks, benefits and alternative treatment options. Pt reports shee worries about side effects of medications and at times does not take them consistently. She agreees to continue sertraline 100mg po daily. will hold wellbutrin as it may increase anxious mood and she does not take it regularly anyway. Continue buspar. PLAN 1. Admit to S1, CV, 5 minutes checks for safety. 2. continue sertraline 100mg po daily 3. obtain collateral information 4. aftercare planning. 5. Increase Zoloft up to 150 mg p.o. q.a.m. starting on April 09. 6. Results from MRI did not show major changes. 7. Start bowel regimen due to constipation . 8. Start Cymbalta 20 mg p.o. daily on April 14 for anxiety, depression and neuropathic pain.. On April 14 we are increasing to 20 mg p.o. b.i.d. to target depression, anxiety and chronic pain. On April 15 we increase it up to 30 mg p.o. b.i.d. to target depression anxiety and chronic pain. 9. Discontinue Wellbutrin XL. Reason for continued inpatient stay Substantial Risk for: inability to function, rapid decompensation and med/psych decompensation Time Spent With Patient Time: Total time managing care of this patient today __20__ minutes.
[2024-04-15] MEDS: Acetaminophen 325 MG TABLET 650 MG PO (16:35)
[2024-04-15 20:00] VITALS: BP 111/59; PULSE 62; RESP 16; TEMP 36.1; O2SAT 96
[2024-04-15] MEDS: DULoxetine HCl 30 MG CAPSULE.DR PO (20:33)
[2024-04-15] MEDS: Atorvastatin Calcium 40 MG TABLET PO (20:33)
[2024-04-15] MEDS: Sennosides 8.6 MG TABLET PO (20:33)
[2024-04-15] MEDS: Montelukast Sodium 10 MG TABLET PO (20:33)
[2024-04-15] MEDS: traZODone HCL 50 MG TABLET PO (20:34)
[2024-04-15 21:19] LABS: Glucose, Whole Blood 160 mg/dL (60-115)
[2024-04-16] MEDS: Omeprazole 20 MG CAPSULE.DR PO (06:09)
[2024-04-16 06:26] LABS: Glucose, Whole Blood 134 mg/dL (60-115)
[2024-04-16 08:00] VITALS: BP 111/70; PULSE 88; RESP 18; TEMP 36.1; O2SAT 97
[2024-04-16] MEDS: Cholecalciferol (Vitamin D3) 25 MCG TABLET 50 MCG PO (08:34)
[2024-04-16] MEDS: Sertraline HCL 50 MG TABLET 150 MG PO (08:34)
[2024-04-16] MEDS: Empagliflozin 25 MG TABLET PO (08:34)
[2024-04-16] MEDS: Docusate Sodium 100 MG CAPSULE PO ×2 (08:34→20:30)
[2024-04-16] MEDS: Aspirin 81 MG TAB.CHEW PO (08:35)
[2024-04-16] MEDS: DULoxetine HCl 30 MG CAPSULE.DR PO ×2 (08:35→20:30)
[2024-04-16] MEDS: metFORMIN HCl 1,000 MG TABLET 1000 MG PO ×2 (08:35→20:30)
--- NOTE | 2024-04-16 11:23 | P.PNPSI_ITS ---
Subjective Subjective Date of Service: 04/16/24 Reason For Visit: SI Interim History: seen with PETR clarke for malaysian language support. c/o rash to [place] 2/2 wearing wet depends. staff cytotechnologist to eval. otherwise no complaints or requests. per staff, primarily malaysian-speaking. +dep/anx. taking meds. c/o rash as above. Mental Status Exam Mental Status Exam Patient Appearance: Well Grooomed and Appropriate Patient Orientation: Person and Situation Level of Consciousness: Awake and Appropriate Patient Behavior: Guarded and Passive Mood Description: Withdrawn and Depressed Affect Description: Constricted Patient Cognition Impaired: Yes Ability to Follow Directions: Good Speech Pattern: Clear Hallucinations: None Delusions: Not Present Thought Process: Distracted and Slowed Thinking Thought Content: positive for [place] and positive for Poverty of Content Judgement: Fair Diagnostics Vital Signs (24Hr): Vital Signs - 24 hr 04/15/24 20:00 04/16/24 08:00 Temperature 97 F 96.9 F Pulse Rate 62 88 Respiratory Rate 16 18 Blood Pressure 111/59 L 111/70 Pulse Oximetry 96 97 Oxygen Delivery Method Room Air Room Air BMI result Body Mass Index 34.8 Labs 04/04/24 22:19 04/14/24 09:21 Labs: Laboratory Results - last 48 hr 04/14/24 04/15/24 04/15/24 19:50 06:39 20:31 POC Glucose 142 H 132 H 160 H 04/16/24 06:09 POC Glucose 134 H Imaging Radiology Impressions: ITS Impressions Brain MRI 04/07/24 12:59 IMPRESSION: 1. No acute intracranial abnormalities. 2. Mild underlying microangiopathy. Medications Medications Current Medications Acetaminophen (Acetaminophen 325 Mg Tablet) 650 mg PO Q6H PRN PRN Reason: Headache/Pain Mild Scale (1-3) Last Admin: 04/15/24 16:35 Dose: 650 mg Al Hydroxide/Mg Hydroxide (Magnesium Hydrox/Alum Hydrox 30 Ml Oral.Susp) 30 ml PO Q6H PRN PRN Reason: Heartburn/Nausea Albuterol Sulfate (Albuterol Sulfate 90 Mcg 8 Gm Inhaler) 2 puff INHALE Q6H PRN PRN Reason: shortness of breath or wheezing Aspirin (Aspirin 81 Mg Tab.Chew) 81 mg PO DAILY [facility] Last Admin: 04/16/24 08:35 Dose: 81 mg Atorvastatin Calcium (Atorvastatin Calcium 40 Mg Tablet) 40 mg PO BEDTIME [facility] Last Admin: 04/15/24 20:33 Dose: 40 mg Clotrimazole (Clotrimazole 1 % Cream 15 Gm Tube) 1 appl TOPICAL BID [facility]; Protocol Last Admin: 04/16/24 08:59 Dose: Not Given Docusate Sodium (Docusate Sodium 100 Mg Capsule) 100 mg PO BID [facility] Last Admin: 04/16/24 08:34 Dose: 100 mg Duloxetine HCl (Duloxetine Hcl 30 Mg Capsule.) 30 mg PO BID [facility] Last Admin: 04/16/24 08:35 Dose: 30 mg Empagliflozin (Empagliflozin 25 Mg Tablet) 25 mg PO DAILY [facility] Last Admin: 04/16/24 08:34 Dose: 25 mg Lorazepam (Lorazepam 0.5 Mg Tablet) 0.5 mg PO Q8H PRN PRN Reason: Anxiety Magnesium Hydroxide (Milk Of Magnesia 30 Ml Oral.Susp) 30 ml PO DAILY PRN PRN Reason: Constipation Last Admin: 04/11/24 13:39 Dose: 30 ml Metformin HCl (Metformin Hcl 1,000 Mg Tablet) 1,000 mg PO BID [facility] Last Admin: 04/16/24 08:35 Dose: 1,000 mg Montelukast Sodium (Montelukast Sodium 10 Mg Tablet) 10 mg PO BEDTIME [facility] Last Admin: 04/15/24 20:33 Dose: 10 mg Omeprazole (Omeprazole 20 Mg Capsule.) 20 mg PO DAILY@0630 [facility] Last Admin: 04/16/24 06:09 Dose: 20 mg Senna (Sennosides 8.6 Mg Tablet) 8.6 mg PO BEDTIME [facility] Last Admin: 04/15/24 20:33 Dose: 8.6 mg Sertraline HCl (Sertraline Hcl 50 Mg Tablet) 150 mg PO DAILY [facility] Last Admin: 04/16/24 08:34 Dose: 150 mg Trazodone HCl (Trazodone Hcl 50 Mg Tablet) 50 mg PO BEDTIME MRX1 PRN PRN Reason: Insomnia Last Admin: 04/15/24 20:34 Dose: 50 mg Vitamin D (Cholecalciferol (Vitamin D3) 25 Mcg Tablet) 50 mcg PO DAILY [facility] Last Admin: 04/16/24 08:34 Dose: 50 mcg Allergies Allergies Allergy/AdvReac Type Severity Reaction Status Date / Time egg [EGG] Allergy Intermediate VOMITING Verified 04/04/24 21:25 oxycodone [OXYCODONE] Allergy Intermediate NAUSEA/NIGH Verified 04/04/24 21:25 TMARES Penicillins [PCN] Allergy Intermediate RASH Verified 04/04/24 21:25 tramadol [TRAMADOL] Allergy Intermediate ITCHING Verified 04/04/24 21:25 acetaminophen [Percocet] Allergy Unknown none Verified 04/04/24 21:25 codeine Allergy Unknown nightmares Verified 04/04/24 21:25 Assessment & Plan Assessment & Plan (1) MDD (major depressive disorder), recurrent episode, moderate: Status: Acute Code(s): F33.1 - Major depressive disorder, recurrent, moderate Plan Ms. Higgins is a 58 year-old woman with long hx of depression, outpatient psychiatric treatment but no prior inpatient treatment who [place] [facility] [place] increasing depression, passive suicidal ideation in context of feeling overwhelmed with caring for her two adopted teenager. We discussed risks, benefits and alternative treatment options. Pt reports shee worries about side effects of medications and at times does not take them consistently. She agreees to continue sertraline 100mg po daily. will hold wellbutrin as it may increase anxious mood and she does not take it regularly anyway. Continue buspar. PLAN 1. Admit to S1, CV, 5 minutes checks for safety. 2. continue sertraline 100mg po daily 3. obtain collateral information 4. aftercare planning. 5. Increase Zoloft up to 150 mg p.o. q.a.m. starting on April 09. 6. Results from MRI did not show major changes. 7. Start bowel regimen due to constipation . 8. Start Cymbalta 20 mg p.o. daily on April 14 for anxiety, depression and neuropathic pain.. On April 14 we are increasing to 20 mg p.o. b.i.d. to target depression, anxiety and chronic pain. On April 15 we increase it up to 30 mg p.o. b.i.d. to target depression anxiety and chronic pain. 9. Discontinue Wellbutrin XL. Reason for continued inpatient stay Substantial Risk for: inability to function Time Spent With Patient Time: Total time managing care of this patient today ____ minutes.
--- NOTE | 2024-04-16 12:35 | PM.EVENT ---
Event Note Date of Service: 04/16/24 Event Note: Consult placed to hospitalist service for evaluation of vaginal irritation/pruritis and erythema. No urinary symptoms or vaginal discharge. Recommend collecting sure swab/ bv panel to evaluate for bv, yeast infection. Suspect this is vulvovaginal candidiasis. Will await results. Will continue following. Time Spent With Patient Time: Total time managing care of this patient today ____ minutes.
[2024-04-16 15:52] LABS: Bacterial Vaginosis PCR NEGATIVE (Negative); Candida Group PCR DETECTED (Not Detect); Candida glab krusei PCR NOT DETECTED (Not Detect); Trichomonas vaginalis PCR NOT DETECTED (Not Detect)
[2024-04-16] MEDS: Fluconazole 150 MG TABLET PO (17:35)
[2024-04-16 20:00] VITALS: BP 124/58; PULSE 66; RESP 16; TEMP 36.3; O2SAT 96
[2024-04-16] MEDS: Sennosides 8.6 MG TABLET PO (20:30)
[2024-04-16] MEDS: Atorvastatin Calcium 40 MG TABLET PO (20:31)
[2024-04-16] MEDS: Montelukast Sodium 10 MG TABLET PO (20:31)
[2024-04-16] MEDS: traZODone HCL 50 MG TABLET PO (20:31)
[2024-04-16 20:38] LABS: Glucose, Whole Blood 120 mg/dL (60-115)
[2024-04-17] MEDS: Omeprazole 20 MG CAPSULE.DR PO (06:17)
[2024-04-17 06:46] LABS: Glucose, Whole Blood 122 mg/dL (60-115)
[2024-04-17 08:28] VITALS: BP 120/66; PULSE 68; RESP 16; TEMP 36.3; O2SAT 97
[2024-04-17] MEDS: Aspirin 81 MG TAB.CHEW PO (09:44)
[2024-04-17] MEDS: Cholecalciferol (Vitamin D3) 25 MCG TABLET 50 MCG PO (09:44)
[2024-04-17] MEDS: DULoxetine HCl 30 MG CAPSULE.DR PO ×2 (09:44→20:19)
[2024-04-17] MEDS: Sertraline HCL 50 MG TABLET 150 MG PO (09:44)
[2024-04-17] MEDS: Docusate Sodium 100 MG CAPSULE PO (09:44)
[2024-04-17] MEDS: metFORMIN HCl 1,000 MG TABLET 1000 MG PO ×2 (09:45→20:19)
[2024-04-17] MEDS: Empagliflozin 25 MG TABLET PO (09:45)
[2024-04-17] MEDS: Clotrimazole 1 % Cream 15 GM TUBE 1 APPL TOPICAL (09:45)
[2024-04-17] MEDS: Fluconazole 150 MG TABLET PO (11:50)
--- NOTE | 2024-04-17 11:50 | P.PNPSI_ITS ---
Subjective Subjective Date of Service: 04/17/24 Reason For Visit: SI Interim History: Dx with yeast infection yesterday, got diflucan 150 x 1. reports some improvement today. per staff, per pt Hx she often needs second dose of diflucan. no change in presentation psychiatrically. Mental Status Exam Mental Status Exam Patient Appearance: Well Grooomed and Appropriate Patient Orientation: Person and Situation Level of Consciousness: Awake and Appropriate Patient Behavior: Guarded and Passive Mood Description: Withdrawn and Depressed Affect Description: Constricted Patient Cognition Impaired: Yes Ability to Follow Directions: Good Speech Pattern: Clear Hallucinations: None Delusions: Not Present Thought Process: Distracted and Slowed Thinking Thought Content: positive for [place] and positive for Poverty of Content Judgement: Fair Diagnostics Vital Signs (24Hr): Vital Signs - 24 hr 04/16/24 20:00 04/17/24 08:28 Temperature 97.3 F 97.3 F Pulse Rate 66 68 Respiratory Rate 16 16 Blood Pressure 124/58 L 120/66 Pulse Oximetry 96 97 Oxygen Delivery Method Room Air Room Air BMI result Body Mass Index 34.8 Labs 04/04/24 22:19 04/14/24 09:21 Labs: Laboratory Results - last 48 hr 04/15/24 04/16/24 04/16/24 20:31 06:09 14:45 POC Glucose 160 H 134 H T. vaginalis (PCR) NOT DETECTED Bact Vaginosis (PCR) NEGATIVE C. krusei/glabrata (PCR) NOT DETECTED Padma group (PCR) DETECTED A 04/16/24 04/17/24 20:29 06:21 POC Glucose 120 H 122 H T. vaginalis (PCR) Bact Vaginosis (PCR) C. krusei/glabrata (PCR) Padma group (PCR) Imaging Radiology Impressions: ITS Impressions Brain MRI 04/07/24 12:59 IMPRESSION: 1. No acute intracranial abnormalities. 2. Mild underlying microangiopathy. Medications Medications Current Medications Acetaminophen (Acetaminophen 325 Mg Tablet) 650 mg PO Q6H PRN PRN Reason: Headache/Pain Mild Scale (1-3) Last Admin: 04/15/24 16:35 Dose: 650 mg Al Hydroxide/Mg Hydroxide (Magnesium Hydrox/Alum Hydrox 30 Ml Oral.Susp) 30 ml PO Q6H PRN PRN Reason: Heartburn/Nausea Albuterol Sulfate (Albuterol Sulfate 90 Mcg 8 Gm Inhaler) 2 puff INHALE Q6H PRN PRN Reason: shortness of breath or wheezing Aspirin (Aspirin 81 Mg Tab.Chew) 81 mg PO DAILY [facility] Last Admin: 04/17/24 09:44 Dose: 81 mg Atorvastatin Calcium (Atorvastatin Calcium 40 Mg Tablet) 40 mg PO BEDTIME [facility] Last Admin: 04/16/24 20:31 Dose: 40 mg Clotrimazole (Clotrimazole 1 % Cream 15 Gm Tube) 1 appl TOPICAL BID [facility]; Protocol Last Admin: 04/17/24 09:45 Dose: 1 appl Docusate Sodium (Docusate Sodium 100 Mg Capsule) 100 mg PO BID [facility] Last Admin: 04/17/24 09:44 Dose: 100 mg Duloxetine HCl (Duloxetine Hcl 30 Mg Capsule.Dr) 30 mg PO BID [facility] Last Admin: 04/17/24 09:44 Dose: 30 mg Empagliflozin (Empagliflozin 25 Mg Tablet) 25 mg PO DAILY [facility] Last Admin: 04/17/24 09:45 Dose: 25 mg Lorazepam (Lorazepam 0.5 Mg Tablet) 0.5 mg PO Q8H PRN PRN Reason: Anxiety Magnesium Hydroxide (Milk Of Magnesia 30 Ml Oral.Susp) 30 ml PO DAILY PRN PRN Reason: Constipation Last Admin: 04/11/24 13:39 Dose: 30 ml Metformin HCl (Metformin Hcl 1,000 Mg Tablet) 1,000 mg PO BID [facility] Last Admin: 04/17/24 09:45 Dose: 1,000 mg Montelukast Sodium (Montelukast Sodium 10 Mg Tablet) 10 mg PO BEDTIME [facility] Last Admin: 04/16/24 20:31 Dose: 10 mg Omeprazole (Omeprazole 20 Mg Capsule.Dr) 20 mg PO DAILY@0630 [facility] Last Admin: 04/17/24 06:17 Dose: 20 mg Senna (Sennosides 8.6 Mg Tablet) 8.6 mg PO BEDTIME [facility] Last Admin: 04/16/24 20:30 Dose: 8.6 mg Sertraline HCl (Sertraline Hcl 50 Mg Tablet) 150 mg PO DAILY [facility] Last Admin: 04/17/24 09:44 Dose: 150 mg Trazodone HCl (Trazodone Hcl 50 Mg Tablet) 50 mg PO BEDTIME MRX1 PRN PRN Reason: Insomnia Last Admin: 04/16/24 20:31 Dose: 50 mg Vitamin D (Cholecalciferol (Vitamin D3) 25 Mcg Tablet) 50 mcg PO DAILY [facility] Last Admin: 04/17/24 09:44 Dose: 50 mcg Allergies Allergies Allergy/AdvReac Type Severity Reaction Status Date / Time egg [EGG] Allergy Intermediate VOMITING Verified 04/04/24 21:25 oxycodone [OXYCODONE] Allergy Intermediate NAUSEA/NIGH Verified 04/04/24 21:25 TMARES Penicillins [PCN] Allergy Intermediate RASH Verified 04/04/24 21:25 tramadol [TRAMADOL] Allergy Intermediate ITCHING Verified 04/04/24 21:25 acetaminophen [Percocet] Allergy Unknown none Verified 04/04/24 21:25 codeine Allergy Unknown nightmares Verified 04/04/24 21:25 Assessment & Plan Assessment & Plan (1) MDD (major depressive disorder), recurrent episode, moderate: Status: Acute Code(s): F33.1 - Major depressive disorder, recurrent, moderate Plan Ms. Higgins is a 58 year-old woman with long hx of depression, outpatient psychiatric treatment but no prior inpatient treatment who self presented to [facility] [place] [facility] reporting increasing depression, passive suicidal ideation in context of feeling overwhelmed with caring for her two adopted teenager. We discussed risks, benefits and alternative treatment options. Pt reports shee worries about side effects of medications and at times does not take them consistently. She agreees to continue sertraline 100mg po daily. will hold wellbutrin as it may increase anxious mood and she does not take it regularly anyway. Continue buspar. PLAN 1. Admit to S1, CV, 5 minutes checks for safety. 2. continue sertraline 100mg po daily 3. obtain collateral information 4. aftercare planning. 5. Increase Zoloft up to 150 mg p.o. q.a.m. starting on April 09. 6. Results from MRI did not show major changes. 7. Start bowel regimen due to constipation . 8. Start Cymbalta 20 mg p.o. daily on April 14 for anxiety, depression and neuropathic pain.. On April 14 we are increasing to 20 mg p.o. b.i.d. to target depression, anxiety and chronic pain. On April 15 we increase it up to 30 mg p.o. b.i.d. to target depression anxiety and chronic pain. 9. Discontinue Wellbutrin XL. Reason for continued inpatient stay Substantial Risk for: inability to function Time Spent With Patient Time: Total time managing care of this patient today ____ minutes.
[2024-04-17 20:00] VITALS: BP 127/65; PULSE 70; RESP 14; TEMP 36; O2SAT 96
[2024-04-17 20:09] LABS: Glucose, Whole Blood 126 mg/dL (60-115)
[2024-04-17] MEDS: traZODone HCL 50 MG TABLET PO (20:19)
[2024-04-17] MEDS: Atorvastatin Calcium 40 MG TABLET PO (20:19)
[2024-04-17] MEDS: Sennosides 8.6 MG TABLET PO (20:19)
[2024-04-17] MEDS: Montelukast Sodium 10 MG TABLET PO (20:20)
[2024-04-17] MEDS: LORazepam 0.5 MG TABLET PO (20:29)
[2024-04-18] MEDS: Omeprazole 20 MG CAPSULE.DR PO (06:29)
[2024-04-18 06:45] LABS: Glucose, Whole Blood 137 mg/dL (60-115)
[2024-04-18 08:00] VITALS: BP 126/69; PULSE 60; RESP 18; TEMP 37; O2SAT 97
[2024-04-18] MEDS: Clotrimazole 1 % Cream 15 GM TUBE 1 APPL TOPICAL ×2 (08:35→20:19)
[2024-04-18] MEDS: metFORMIN HCl 1,000 MG TABLET 1000 MG PO ×2 (08:35→19:48)
[2024-04-18] MEDS: Aspirin 81 MG TAB.CHEW PO (08:35)
[2024-04-18] MEDS: DULoxetine HCl 30 MG CAPSULE.DR PO (08:36)
[2024-04-18] MEDS: Empagliflozin 25 MG TABLET PO (08:36)
[2024-04-18] MEDS: Docusate Sodium 100 MG CAPSULE PO ×2 (08:36→19:47)
[2024-04-18] MEDS: Cholecalciferol (Vitamin D3) 25 MCG TABLET 50 MCG PO (08:36)
[2024-04-18] MEDS: Sertraline HCL 50 MG TABLET 150 MG PO (08:37)
--- NOTE | 2024-04-18 13:04 | HO.PSYCHPN ---
Subjective Subjective Date of Service: 04/18/24 Reason For Visit: SI Subjective Notes: Conditional Voluntary Interim History: The nursing staff reported the patient received her 2nd dose of Diflucan, still with sign and symptoms of candidiasis. She remains depressed and anxious. On interview the patient reported that she had episodes of panic attacks and I recommend her to use p.r.n. Ativan as ordered. We are going to increase Cymbalta to 30 mg in the morning and 60 in the evening. Mental Status Exam Mental Status Exam Patient Appearance: Appropriate Patient Orientation: Person and Situation Level of Consciousness: Awake and Appropriate Patient Behavior: Guarded and Passive Mood Description: Withdrawn Affect Description: Constricted and Blunted Patient Cognition Impaired: Yes Ability to Follow Directions: Good Speech Pattern: Clear Hallucinations: None Delusions: Not Present Thought Process: Distracted and Slowed Thinking Thought Content: positive for [place] and positive for [place] of Content Judgement: Fair Diagnostics Vital Signs (24Hr): Vital Signs - 24 hr 04/17/24 20:00 04/18/24 08:00 Temperature 96.8 F 98.6 F Pulse Rate 70 60 Respiratory Rate 14 18 Blood Pressure 127/65 126/69 Pulse Oximetry 96 97 Oxygen Delivery Method Room Air Room Air BMI result Body Mass Index 34.8 Labs 04/04/24 22:19 04/14/24 09:21 Labs: Laboratory Results - last 48 hr 04/16/24 04/16/24 04/17/24 14:45 20:29 06:21 POC Glucose 120 H 122 H T. vaginalis (PCR) NOT DETECTED Bact Vaginosis (PCR) NEGATIVE C. krusei/glabrata (PCR) NOT DETECTED Padma group (PCR) DETECTED A 04/17/24 04/18/24 20:05 06:33 POC Glucose 126 H 137 H T. vaginalis (PCR) Bact Vaginosis (PCR) C. krusei/glabrata (PCR) Padma group (PCR) Imaging Radiology Impressions: ITS Impressions Brain MRI 04/07/24 12:59 IMPRESSION: 1. No acute intracranial abnormalities. 2. Mild underlying microangiopathy. Medications Medications Current Medications Acetaminophen (Acetaminophen 325 Mg Tablet) 650 mg PO Q6H PRN PRN Reason: Headache/Pain Mild Scale (1-3) Last Admin: 04/15/24 16:35 Dose: 650 mg Al Hydroxide/Mg Hydroxide (Magnesium Hydrox/Alum Hydrox 30 Ml Oral.Susp) 30 ml PO Q6H PRN PRN Reason: Heartburn/Nausea Albuterol Sulfate (Albuterol Sulfate 90 Mcg 8 Gm Inhaler) 2 puff INHALE Q6H PRN PRN Reason: shortness of breath or wheezing Aspirin (Aspirin 81 Mg Tab.Chew) 81 mg PO DAILY [facility] Last Admin: 04/18/24 08:35 Dose: 81 mg Atorvastatin Calcium (Atorvastatin Calcium 40 Mg Tablet) 40 mg PO BEDTIME [facility] Last Admin: 04/17/24 20:19 Dose: 40 mg Clotrimazole (Clotrimazole 1 % Cream 15 Gm Tube) 1 appl TOPICAL BID [facility]; Protocol Last Admin: 04/18/24 08:35 Dose: 1 appl Docusate Sodium (Docusate Sodium 100 Mg Capsule) 100 mg PO BID [facility] Last Admin: 04/18/24 08:36 Dose: 100 mg Duloxetine HCl (Duloxetine Hcl 30 Mg Capsule.) 30 mg PO BID [facility] Last Admin: 04/18/24 08:36 Dose: 30 mg Empagliflozin (Empagliflozin 25 Mg Tablet) 25 mg PO DAILY [facility] Last Admin: 04/18/24 08:36 Dose: 25 mg Lorazepam (Lorazepam 0.5 Mg Tablet) 0.5 mg PO Q8H PRN PRN Reason: Anxiety Last Admin: 04/17/24 20:29 Dose: 0.5 mg Magnesium Hydroxide (Milk Of Magnesia 30 Ml Oral.Susp) 30 ml PO DAILY PRN PRN Reason: Constipation Last Admin: 04/11/24 13:39 Dose: 30 ml Metformin HCl (Metformin Hcl 1,000 Mg Tablet) 1,000 mg PO BID [facility] Last Admin: 04/18/24 08:35 Dose: 1,000 mg Montelukast Sodium (Montelukast Sodium 10 Mg Tablet) 10 mg PO BEDTIME [facility] Last Admin: 04/17/24 20:20 Dose: 10 mg Omeprazole (Omeprazole 20 Mg Capsule.) 20 mg PO DAILY@0630 [facility] Last Admin: 04/18/24 06:29 Dose: 20 mg Senna (Sennosides 8.6 Mg Tablet) 8.6 mg PO BEDTIME [facility] Last Admin: 04/17/24 20:19 Dose: 8.6 mg Sertraline HCl (Sertraline Hcl 50 Mg Tablet) 150 mg PO DAILY [facility] Last Admin: 04/18/24 08:37 Dose: 150 mg Trazodone HCl (Trazodone Hcl 50 Mg Tablet) 50 mg PO BEDTIME MRX1 PRN PRN Reason: Insomnia Last Admin: 04/17/24 20:19 Dose: 50 mg Vitamin D (Cholecalciferol (Vitamin D3) 25 Mcg Tablet) 50 mcg PO DAILY [facility] Last Admin: 04/18/24 08:36 Dose: 50 mcg Allergies Allergies Allergy/AdvReac Type Severity Reaction Status Date / Time egg [EGG] Allergy Intermediate VOMITING Verified 04/04/24 21:25 oxycodone [OXYCODONE] Allergy Intermediate NAUSEA/NIGH Verified 04/04/24 21:25 TMARES Penicillins [PCN] Allergy Intermediate RASH Verified 04/04/24 21:25 tramadol [TRAMADOL] Allergy Intermediate ITCHING Verified 04/04/24 21:25 acetaminophen [Percocet] Allergy Unknown none Verified 04/04/24 21:25 codeine Allergy Unknown nightmares Verified 04/04/24 21:25 Assessment & Plan Assessment & Plan (1) MDD (major depressive disorder), recurrent episode, moderate: Status: Acute Code(s): F33.1 - Major depressive disorder, recurrent, moderate Plan Ms. Higgins is a 58 year-old woman with long hx of depression, outpatient psychiatric treatment but no prior inpatient treatment who self presented to [facility] [place] [place] ED reporting increasing depression, passive suicidal ideation in context of feeling overwhelmed with caring for her two adopted teenager. We discussed risks, benefits and alternative treatment options. Pt reports shee worries about side effects of medications and at times does not take them consistently. She agreees to continue sertraline 100mg po daily. will hold wellbutrin as it may increase anxious mood and she does not take it regularly anyway. Continue buspar. PLAN 1. Admit to S1, CV, 5 minutes checks for safety. 2. continue sertraline 100mg po daily 3. obtain collateral information 4. aftercare planning. 5. Increase Zoloft up to 150 mg p.o. q.a.m. starting on April 09. 6. Results from MRI did not show major changes. 7. Start bowel regimen due to constipation . 8. Start Cymbalta 20 mg p.o. daily on April 14 for anxiety, depression and neuropathic pain.. On April 14 we are increasing to 20 mg p.o. b.i.d. to target depression, anxiety and chronic pain. On April 15 we increase it up to 30 mg p.o. b.i.d. to target depression anxiety and chronic pain. On April 18 we are increasing Cymbalta to 30 mg in the morning and 60 at night. 9. Discontinue Wellbutrin XL. Reason for continued inpatient stay Substantial Risk for: inability to function, rapid decompensation and med/psych decompensation Time Spent With Patient Time: Total time managing care of this patient today __20__ minutes.
[2024-04-18 19:37] LABS: Glucose, Whole Blood 166 mg/dL (60-115)
[2024-04-18] MEDS: DULoxetine HCl 60 MG CAPSULE.DR PO (19:47)
[2024-04-18] MEDS: Atorvastatin Calcium 40 MG TABLET PO (19:47)
[2024-04-18] MEDS: Montelukast Sodium 10 MG TABLET PO (19:47)
[2024-04-18] MEDS: Sennosides 8.6 MG TABLET PO (19:47)
[2024-04-18 20:00] VITALS: BP 120/74; PULSE 74; TEMP 36.2; O2SAT 96
[2024-04-18] MEDS: traZODone HCL 50 MG TABLET PO (20:24)
[2024-04-19] MEDS: Omeprazole 20 MG CAPSULE.DR PO (05:46)
[2024-04-19 06:41] LABS: Glucose, Whole Blood 135 mg/dL (60-115)
[2024-04-19 08:00] VITALS: BP 103/67; PULSE 65; RESP 17; TEMP 36; O2SAT 96
[2024-04-19] MEDS: metFORMIN HCl 1,000 MG TABLET 1000 MG PO ×2 (08:33→21:19)
[2024-04-19] MEDS: Sertraline HCL 50 MG TABLET 150 MG PO (08:33)
[2024-04-19] MEDS: Docusate Sodium 100 MG CAPSULE PO ×2 (08:33→21:18)
[2024-04-19] MEDS: DULoxetine HCl 30 MG CAPSULE.DR PO (08:33)
[2024-04-19] MEDS: Aspirin 81 MG TAB.CHEW PO (08:33)
[2024-04-19] MEDS: Cholecalciferol (Vitamin D3) 25 MCG TABLET 50 MCG PO (08:33)
[2024-04-19] MEDS: Empagliflozin 25 MG TABLET PO (08:33)
[2024-04-19] MEDS: Clotrimazole 1 % Cream 15 GM TUBE 1 APPL TOPICAL ×2 (08:49→21:18)
--- NOTE | 2024-04-19 12:25 | P.PNPSI_ITS ---
Subjective Subjective Date of Service: 04/19/24 Reason For Visit: SI Subjective Notes: Conditional Voluntary Interim History: The nursing staff reported the patient remains dysphoric, she showered yesterday. She is feeling overwhelmed by the family stressors. She slept 8 hours and she had been eating well. The social media editor reported that her niece is worried about a poor short-term memory of the patient. At this moment the patient is still dysphoric and her cognition is impaired due to depression, most likely several dementia. We are increasing Cymbalta today. Mental Status Exam Mental Status Exam Patient Appearance: Well Grooomed and Appropriate Patient Orientation: Person and Situation Level of Consciousness: Awake and Appropriate Patient Behavior: Guarded and Passive Mood Description: Withdrawn Affect Description: Constricted Patient Cognition Impaired: Yes Ability to Follow Directions: Good Speech Pattern: Clear Hallucinations: None Delusions: Not Present Thought Process: Distracted and Slowed Thinking Thought Content: positive for [place] and positive for [place] Judgement: Fair Diagnostics Vital Signs (24Hr): Vital Signs - 24 hr 04/18/24 20:00 04/19/24 08:00 Temperature 97.1 F 96.8 F Pulse Rate 74 65 Respiratory Rate 17 Blood Pressure 120/74 103/67 Pulse Oximetry 96 96 Oxygen Delivery Method Room Air Room Air BMI result Body Mass Index 34.8 Labs 04/04/24 22:19 04/14/24 09:21 Labs: Laboratory Results - last 48 hr 04/17/24 04/18/24 04/18/24 20:05 06:33 19:32 POC Glucose 126 H 137 H 166 H 04/19/24 06:35 POC Glucose 135 H Imaging Radiology Impressions: ITS Impressions Brain MRI 04/07/24 12:59 IMPRESSION: 1. No acute intracranial abnormalities. 2. Mild underlying microangiopathy. Medications Medications Current Medications Acetaminophen (Acetaminophen 325 Mg Tablet) 650 mg PO Q6H PRN PRN Reason: Headache/Pain Mild Scale (1-3) Last Admin: 04/15/24 16:35 Dose: 650 mg Al Hydroxide/Mg Hydroxide (Magnesium Hydrox/Alum Hydrox 30 Ml Oral.Susp) 30 ml PO Q6H PRN PRN Reason: Heartburn/Nausea Albuterol Sulfate (Albuterol Sulfate 90 Mcg 8 Gm Inhaler) 2 puff INHALE Q6H PRN PRN Reason: shortness of breath or wheezing Aspirin (Aspirin 81 Mg Tab.Chew) 81 mg PO DAILY [facility] Last Admin: 04/19/24 08:33 Dose: 81 mg Atorvastatin Calcium (Atorvastatin Calcium 40 Mg Tablet) 40 mg PO BEDTIME [facility] Last Admin: 04/18/24 19:47 Dose: 40 mg Clotrimazole (Clotrimazole 1 % Cream 15 Gm Tube) 1 appl TOPICAL BID [facility]; Protocol Last Admin: 04/19/24 08:49 Dose: 1 appl Docusate Sodium (Docusate Sodium 100 Mg Capsule) 100 mg PO BID [facility] Last Admin: 04/19/24 08:33 Dose: 100 mg Duloxetine HCl (Duloxetine Hcl 60 Mg Capsule.Dr) 60 mg PO BEDTIME [facility] Last Admin: 04/18/24 19:47 Dose: 60 mg Duloxetine HCl (Duloxetine Hcl 60 Mg Capsule.Dr) 60 mg PO DAILY [facility] Empagliflozin (Empagliflozin 25 Mg Tablet) 25 mg PO DAILY [facility] Last Admin: 04/19/24 08:33 Dose: 25 mg Lorazepam (Lorazepam 0.5 Mg Tablet) 0.5 mg PO Q8H PRN PRN Reason: Anxiety Last Admin: 04/17/24 20:29 Dose: 0.5 mg Magnesium Hydroxide (Milk Of Magnesia 30 Ml Oral.Susp) 30 ml PO DAILY PRN PRN Reason: Constipation Last Admin: 04/11/24 13:39 Dose: 30 ml Metformin HCl (Metformin Hcl 1,000 Mg Tablet) 1,000 mg PO BID [facility] Last Admin: 04/19/24 08:33 Dose: 1,000 mg Montelukast Sodium (Montelukast Sodium 10 Mg Tablet) 10 mg PO BEDTIME [facility] Last Admin: 04/18/24 19:47 Dose: 10 mg Omeprazole (Omeprazole 20 Mg Capsule.Dr) 20 mg PO DAILY@0630 [facility] Last Admin: 04/19/24 05:46 Dose: 20 mg Senna (Sennosides 8.6 Mg Tablet) 8.6 mg PO BEDTIME [facility] Last Admin: 04/18/24 19:47 Dose: 8.6 mg Sertraline HCl (Sertraline Hcl 50 Mg Tablet) 150 mg PO DAILY [facility] Last Admin: 04/19/24 08:33 Dose: 150 mg Trazodone HCl (Trazodone Hcl 50 Mg Tablet) 50 mg PO BEDTIME MRX1 PRN PRN Reason: Insomnia Last Admin: 04/18/24 20:24 Dose: 50 mg Vitamin D (Cholecalciferol (Vitamin D3) 25 Mcg Tablet) 50 mcg PO DAILY [facility] Last Admin: 04/19/24 08:33 Dose: 50 mcg Allergies Allergies Allergy/AdvReac Type Severity Reaction Status Date / Time egg [EGG] Allergy Intermediate VOMITING Verified 04/04/24 21:25 oxycodone [OXYCODONE] Allergy Intermediate NAUSEA/NIGH Verified 04/04/24 21:25 TMARES Penicillins [PCN] Allergy Intermediate RASH Verified 04/04/24 21:25 tramadol [TRAMADOL] Allergy Intermediate ITCHING Verified 04/04/24 21:25 acetaminophen [Percocet] Allergy Unknown none Verified 04/04/24 21:25 codeine Allergy Unknown nightmares Verified 04/04/24 21:25 Assessment & Plan Assessment & Plan (1) MDD (major depressive disorder), recurrent episode, moderate: Status: Acute Code(s): F33.1 - Major depressive disorder, recurrent, moderate Plan Ms. Higgins is a 58 year-old woman with long hx of depression, outpatient psychiatric treatment but no prior inpatient treatment who self presented to [facility] [place] ED reporting increasing depression, passive suicidal ideation in context of feeling overwhelmed with caring for her two adopted teenager. We discussed risks, benefits and alternative treatment options. Pt reports shee worries about side effects of medications and at times does not take them consistently. She agreees to continue sertraline 100mg po daily. will hold wellbutrin as it may increase anxious mood and she does not take it regularly anyway. Continue buspar. PLAN 1. Admit to S1, CV, 5 minutes checks for safety. 2. continue sertraline 100mg po daily 3. obtain collateral information 4. aftercare planning. 5. Increase Zoloft up to 150 mg p.o. q.a.m. starting on April 09. 6. Results from MRI did not show major changes. 7. Start bowel regimen due to constipation . 8. Start Cymbalta 20 mg p.o. daily on April 14 for anxiety, depression and neuropathic pain.. On April 14 we are increasing to 20 mg p.o. b.i.d. to target depression, anxiety and chronic pain. On April 15 we increase it up to 30 mg p.o. b.i.d. to target depression anxiety and chronic pain. On April 18 we are increasing Cymbalta to 30 mg in the morning and 60 at night. On April 19, we are increasing to Cymbalta 60 p.o. b.i.d. since there are no side-effects at this moment 9. Discontinue Wellbutrin XL. Reason for continued inpatient stay Substantial Risk for: inability to function, rapid decompensation and med/psych decompensation Time Spent With Patient Time: Total time managing care of this patient today __20__ minutes.
[2024-04-19 20:00] VITALS: BP 112/68; PULSE 70; RESP 16; TEMP 35.9; O2SAT 98
[2024-04-19 20:13] LABS: Glucose, Whole Blood 152 mg/dL (60-115)
[2024-04-19] MEDS: Atorvastatin Calcium 40 MG TABLET PO (21:19)
[2024-04-19] MEDS: Montelukast Sodium 10 MG TABLET PO (21:19)
[2024-04-19] MEDS: Sennosides 8.6 MG TABLET PO (21:19)
[2024-04-19] MEDS: DULoxetine HCl 60 MG CAPSULE.DR PO (21:19)
[2024-04-19] MEDS: traZODone HCL 50 MG TABLET PO (21:19)
[2024-04-20] MEDS: Omeprazole 20 MG CAPSULE.DR PO (06:17)
[2024-04-20 06:43] LABS: Glucose, Whole Blood 141 mg/dL (60-115)
[2024-04-20 08:00] VITALS: BP 105/66; PULSE 72; RESP 18; TEMP 36.4; O2SAT 98
[2024-04-20] MEDS: Cholecalciferol (Vitamin D3) 25 MCG TABLET 50 MCG PO (08:48)
[2024-04-20] MEDS: metFORMIN HCl 1,000 MG TABLET 1000 MG PO ×2 (08:48→20:41)
[2024-04-20] MEDS: Empagliflozin 25 MG TABLET PO (08:48)
[2024-04-20] MEDS: Aspirin 81 MG TAB.CHEW PO (08:48)
[2024-04-20] MEDS: Docusate Sodium 100 MG CAPSULE PO ×2 (08:49→20:41)
[2024-04-20] MEDS: Sertraline HCL 50 MG TABLET 150 MG PO (08:49)
[2024-04-20] MEDS: DULoxetine HCl 60 MG CAPSULE.DR PO ×2 (08:49→20:41)
[2024-04-20] MEDS: Clotrimazole 1 % Cream 15 GM TUBE 1 APPL TOPICAL ×2 (08:50→20:44)
[2024-04-20 10:00] VITALS: BP 122/62; PULSE 75; RESP 16; TEMP 36; O2SAT 97
[2024-04-20] MEDS: Acetaminophen 325 MG TABLET 650 MG PO (13:24)
--- NOTE | 2024-04-20 15:00 | P.PNPSI_ITS ---
Subjective Subjective Date of Service: 04/20/24 Reason For Visit: SI Subjective Notes: Conditional Voluntary Interim History: The nursing staff reported the patient had been very depressed, she tries to attend to groups and pushing herself to get better. The hospice social worker reported that niece will be in contact with us and the daughter probably will not be able to be around. We are having a family meeting for next Thursday. The occupational therapist reported that she scored 20/30 on the Tamazight [place]. On interview the patient remains dysphoric she agreed on the plan to use to antidepressants. Mental Status Exam Mental Status Exam Patient Appearance: Appropriate Patient Orientation: Person and Situation Level of Consciousness: Awake and Appropriate Patient Behavior: Guarded and Passive Mood Description: Withdrawn Affect Description: Constricted Patient Cognition Impaired: Yes Ability to Follow Directions: Good Speech Pattern: Clear Hallucinations: None Delusions: Not Present Thought Process: Distracted and Slowed Thinking Thought Content: positive for Circumstantial Judgement: Fair Diagnostics Vital Signs (24Hr): Vital Signs - 24 hr 04/19/24 20:00 04/20/24 08:00 Temperature 96.7 F L 97.5 F Pulse Rate 70 72 Respiratory Rate 16 18 Blood Pressure 112/68 105/66 Pulse Oximetry 98 98 Oxygen Delivery Method Room Air Room Air BMI result Body Mass Index 34.8 Labs 04/04/24 22:19 04/14/24 09:21 Labs: Laboratory Results - last 48 hr 04/18/24 04/19/24 04/19/24 19:32 06:35 19:39 POC Glucose 166 H 135 H 152 H 04/20/24 06:34 POC Glucose 141 H Imaging Radiology Impressions: ITS Impressions Brain MRI 04/07/24 12:59 IMPRESSION: 1. No acute intracranial abnormalities. 2. Mild underlying microangiopathy. Medications Medications Current Medications Acetaminophen (Acetaminophen 325 Mg Tablet) 650 mg PO Q6H PRN PRN Reason: Headache/Pain Mild Scale (1-3) Last Admin: 04/20/24 13:24 Dose: 650 mg Al Hydroxide/Mg Hydroxide (Magnesium Hydrox/Alum Hydrox 30 Ml Oral.Susp) 30 ml PO Q6H PRN PRN Reason: Heartburn/Nausea Albuterol Sulfate (Albuterol Sulfate 90 Mcg 8 Gm Inhaler) 2 puff INHALE Q6H PRN PRN Reason: shortness of breath or wheezing Aspirin (Aspirin 81 Mg Tab.Chew) 81 mg PO DAILY [facility] Last Admin: 04/20/24 08:48 Dose: 81 mg Atorvastatin Calcium (Atorvastatin Calcium 40 Mg Tablet) 40 mg PO BEDTIME [facility] Last Admin: 04/19/24 21:19 Dose: 40 mg Clotrimazole (Clotrimazole 1 % Cream 15 Gm Tube) 1 appl TOPICAL BID [facility]; Protocol Last Admin: 04/20/24 08:50 Dose: 1 appl Docusate Sodium (Docusate Sodium 100 Mg Capsule) 100 mg PO BID [facility] Last Admin: 04/20/24 08:49 Dose: 100 mg Duloxetine HCl (Duloxetine Hcl 60 Mg Capsule.Dr) 60 mg PO BEDTIME [facility] Last Admin: 04/19/24 21:19 Dose: 60 mg Duloxetine HCl (Duloxetine Hcl 60 Mg Capsule.Dr) 60 mg PO DAILY [facility] Last Admin: 04/20/24 08:49 Dose: 60 mg Empagliflozin (Empagliflozin 25 Mg Tablet) 25 mg PO DAILY [facility] Last Admin: 04/20/24 08:48 Dose: 25 mg Lorazepam (Lorazepam 0.5 Mg Tablet) 0.5 mg PO Q8H PRN PRN Reason: Anxiety Last Admin: 04/17/24 20:29 Dose: 0.5 mg Magnesium Hydroxide (Milk Of Magnesia 30 Ml Oral.Susp) 30 ml PO DAILY PRN PRN Reason: Constipation Last Admin: 04/11/24 13:39 Dose: 30 ml Metformin HCl (Metformin Hcl 1,000 Mg Tablet) 1,000 mg PO BID [facility] Last Admin: 04/20/24 08:48 Dose: 1,000 mg Montelukast Sodium (Montelukast Sodium 10 Mg Tablet) 10 mg PO BEDTIME [facility] Last Admin: 04/19/24 21:19 Dose: 10 mg Omeprazole (Omeprazole 20 Mg Capsule.Dr) 20 mg PO DAILY@0630 [facility] Last Admin: 04/20/24 06:17 Dose: 20 mg Senna (Sennosides 8.6 Mg Tablet) 8.6 mg PO BEDTIME [facility] Last Admin: 04/19/24 21:19 Dose: 8.6 mg Sertraline HCl (Sertraline Hcl 50 Mg Tablet) 150 mg PO DAILY [facility] Last Admin: 04/20/24 08:49 Dose: 150 mg Trazodone HCl (Trazodone Hcl 50 Mg Tablet) 50 mg PO BEDTIME MRX1 PRN PRN Reason: Insomnia Last Admin: 04/19/24 21:19 Dose: 50 mg Vitamin D (Cholecalciferol (Vitamin D3) 25 Mcg Tablet) 50 mcg PO DAILY [facility] Last Admin: 04/20/24 08:48 Dose: 50 mcg Allergies Allergies Allergy/AdvReac Type Severity Reaction Status Date / Time egg [EGG] Allergy Intermediate VOMITING Verified 04/04/24 21:25 oxycodone [OXYCODONE] Allergy Intermediate NAUSEA/NIGH Verified 04/04/24 21:25 TMARES Penicillins [PCN] Allergy Intermediate RASH Verified 04/04/24 21:25 tramadol [TRAMADOL] Allergy Intermediate ITCHING Verified 04/04/24 21:25 acetaminophen [Percocet] Allergy Unknown none Verified 04/04/24 21:25 codeine Allergy Unknown nightmares Verified 04/04/24 21:25 Assessment & Plan Assessment & Plan (1) MDD (major depressive disorder), recurrent episode, moderate: Status: Acute Code(s): F33.1 - Major depressive disorder, recurrent, moderate Plan Ms. Higgins is a 58 year-old woman with long hx of depression, outpatient psychiatric treatment but no prior inpatient treatment who self presented to [facility] [place] ED reporting increasing depression, passive suicidal ideation in context of feeling overwhelmed with caring for her two adopted teenager. We discussed risks, benefits and alternative treatment options. Pt reports shee worries about side effects of medications and at times does not take them consistently. She agreees to continue sertraline 100mg po daily. will hold wellbutrin as it may increase anxious mood and she does not take it regularly anyway. Continue buspar. PLAN 1. Admit to S1, CV, 5 minutes checks for safety. 2. continue sertraline 100mg po daily 3. obtain collateral information 4. aftercare planning. 5. Increase Zoloft up to 150 mg p.o. q.a.m. starting on April 09. 6. Results from MRI did not show major changes. 7. Start bowel regimen due to constipation . 8. Start Cymbalta 20 mg p.o. daily on April 14 for anxiety, depression and neuropathic pain.. On April 14 we are increasing to 20 mg p.o. b.i.d. to target depression, anxiety and chronic pain. On April 15 we increase it up to 30 mg p.o. b.i.d. to target depression anxiety and chronic pain. On April 18 we are increasing Cymbalta to 30 mg in the morning and 60 at night. On April 19, we are increasing to Cymbalta 60 p.o. b.i.d. since there are no side-effects at this moment 9. Discontinue Wellbutrin XL. Reason for continued inpatient stay Substantial Risk for: inability to function, rapid decompensation and med/psych decompensation Time Spent With Patient Time: Total time managing care of this patient today __20__ minutes.
[2024-04-20 20:00] VITALS: BP 143/75; PULSE 61; RESP 16; TEMP 36.1; O2SAT 97
[2024-04-20] MEDS: Sennosides 8.6 MG TABLET PO (20:41)
[2024-04-20] MEDS: Atorvastatin Calcium 40 MG TABLET PO (20:41)
[2024-04-20] MEDS: traZODone HCL 50 MG TABLET PO (20:41)
[2024-04-20] MEDS: Montelukast Sodium 10 MG TABLET PO (20:41)
[2024-04-20 21:12] LABS: Glucose, Whole Blood 138 mg/dL (60-115)
[2024-04-21] MEDS: traZODone HCL 50 MG TABLET PO (02:27)
[2024-04-21] MEDS: Omeprazole 20 MG CAPSULE.DR PO (06:23)
[2024-04-21 06:27] LABS: Glucose, Whole Blood 153 mg/dL (60-115)
[2024-04-21 07:00] VITALS: BMI 34.7
[2024-04-21 08:00] VITALS: BP 122/62; PULSE 75; RESP 16; TEMP 36; O2SAT 97
[2024-04-21 08:09] LABS: Creatinine Clr Calc Pharmacy 104.8; Estimated Glomerular Filt Rate > 60
[2024-04-21] MEDS: Docusate Sodium 100 MG CAPSULE PO ×2 (08:41→20:30)
[2024-04-21] MEDS: Sertraline HCL 50 MG TABLET 150 MG PO (08:41)
[2024-04-21] MEDS: Cholecalciferol (Vitamin D3) 25 MCG TABLET 50 MCG PO (08:41)
[2024-04-21] MEDS: Empagliflozin 25 MG TABLET PO (08:43)
[2024-04-21] MEDS: DULoxetine HCl 60 MG CAPSULE.DR PO ×2 (08:43→20:30)
[2024-04-21] MEDS: metFORMIN HCl 1,000 MG TABLET 1000 MG PO ×2 (08:43→20:30)
[2024-04-21] MEDS: Aspirin 81 MG TAB.CHEW PO (08:43)
--- NOTE | 2024-04-21 11:32 | PM.EVENT ---
Event Note Date of Service: 04/21/24 Event Note: Hospitalist consult placed for patient complaining of right ear pain x2 weeks. Denies fever, chills, nausea, vomiting. No drainage from ear. No known trauma to the area. Denies change in hearing. No ringing in the ear. Denies lightheadedness or dizziness. Upon examination right external ear canal noted to be mildly erythematous. Tympanic membrane pearly rivero with good light reflex and landmarks visible. No bulging or retraction. No discharge noted. Left ear canal unremarkable. Will treat with Cortisporin otic solution. Patient should receive 4 drops in right ear t.i.d. x7 days. Pt should lie on bed with affected ear upward x5 minutes. Time Spent With Patient Time: Total time managing care of this patient today ____ minutes.
--- NOTE | 2024-04-21 12:01 | P.PNPSI_ITS ---
Subjective Subjective Date of Service: 04/21/24 Reason For Visit: SI Subjective Notes: Conditional Voluntary Interim History: The nursing staff reported the patient had been compliant with treatment. She complained of knee pain and received Tylenol alert around. She slept 8 hours and there was a hospitalist consult. The director social welfare reported that we are going to have tomorrow meeting with her niece who took care of her 2 teenage years where in [place] right now. She is worried about going back home. The director social welfare has also done referral to [facility]. The occupational therapist reported that she is much better when she is focused on tasks still dysphoric. On interview the patient reports depression but no active suicidal ideation at this point. Mental Status Exam Mental Status Exam Patient Appearance: Appropriate Patient Orientation: Person and Situation Level of Consciousness: Awake and Appropriate Patient Behavior: Guarded and Passive Mood Description: Withdrawn Affect Description: Constricted Patient Cognition Impaired: Yes Ability to Follow Directions: Good Speech Pattern: Clear Hallucinations: None Delusions: Not Present Thought Process: Distracted and Slowed Thinking Thought Content: positive for [place] and positive for Poverty of Content Judgement: Fair Diagnostics Vital Signs (24Hr): Vital Signs - 24 hr 04/20/24 20:00 04/21/24 08:00 Temperature 97 F 96.8 F Pulse Rate 61 75 Respiratory Rate 16 16 Blood Pressure 143/75 H 122/62 Pulse Oximetry 97 97 Oxygen Delivery Method Room Air Room Air BMI result Body Mass Index 34.7 Labs 04/04/24 22:19 04/21/24 07:31 Labs: Laboratory Results - last 48 hr 04/19/24 04/20/24 04/20/24 19:39 06:34 20:40 Creatinine Estim Creat Clear Calc Estimated GFR POC Glucose 152 H 141 H 138 H 04/21/24 04/21/24 06:24 07:31 Creatinine 0.65 Estim Creat Clear Calc 104.8 Estimated GFR > 60 POC Glucose 153 H Imaging Radiology Impressions: ITS Impressions Brain MRI 04/07/24 12:59 IMPRESSION: 1. No acute intracranial abnormalities. 2. Mild underlying microangiopathy. Medications Medications Current Medications Acetaminophen (Acetaminophen 325 Mg Tablet) 650 mg PO Q6H PRN PRN Reason: Headache/Pain Mild Scale (1-3) Last Admin: 04/20/24 13:24 Dose: 650 mg Al Hydroxide/Mg Hydroxide (Magnesium Hydrox/Alum Hydrox 30 Ml Oral.Susp) 30 ml PO Q6H PRN PRN Reason: Heartburn/Nausea Albuterol Sulfate (Albuterol Sulfate 90 Mcg 8 Gm Inhaler) 2 puff INHALE Q6H PRN PRN Reason: shortness of breath or wheezing Aspirin (Aspirin 81 Mg Tab.Chew) 81 mg PO DAILY [facility] Last Admin: 04/21/24 08:43 Dose: 81 mg Atorvastatin Calcium (Atorvastatin Calcium 40 Mg Tablet) 40 mg PO BEDTIME [facility] Last Admin: 04/20/24 20:41 Dose: 40 mg Clotrimazole (Clotrimazole 1 % Cream 15 Gm Tube) 1 appl TOPICAL BID [facility]; Protocol Last Admin: 04/21/24 08:44 Dose: Not Given Docusate Sodium (Docusate Sodium 100 Mg Capsule) 100 mg PO BID [facility] Last Admin: 04/21/24 08:41 Dose: 100 mg Duloxetine HCl (Duloxetine Hcl 60 Mg Capsule.) 60 mg PO BEDTIME [facility] Last Admin: 04/20/24 20:41 Dose: 60 mg Duloxetine HCl (Duloxetine Hcl 60 Mg Capsule.) 60 mg PO DAILY [facility] Last Admin: 04/21/24 08:43 Dose: 60 mg Empagliflozin (Empagliflozin 25 Mg Tablet) 25 mg PO DAILY [facility] Last Admin: 04/21/24 08:43 Dose: 25 mg Lorazepam (Lorazepam 0.5 Mg Tablet) 0.5 mg PO Q8H PRN PRN Reason: Anxiety Last Admin: 04/17/24 20:29 Dose: 0.5 mg Magnesium Hydroxide (Milk Of Magnesia 30 Ml Oral.Susp) 30 ml PO DAILY PRN PRN Reason: Constipation Last Admin: 04/11/24 13:39 Dose: 30 ml Metformin HCl (Metformin Hcl 1,000 Mg Tablet) 1,000 mg PO BID [facility] Last Admin: 04/21/24 08:43 Dose: 1,000 mg Montelukast Sodium (Montelukast Sodium 10 Mg Tablet) 10 mg PO BEDTIME [facility] Last Admin: 04/20/24 20:41 Dose: 10 mg Omeprazole (Omeprazole 20 Mg Capsule.) 20 mg PO DAILY@0630 [facility] Last Admin: 04/21/24 06:23 Dose: 20 mg Senna (Sennosides 8.6 Mg Tablet) 8.6 mg PO BEDTIME [facility] Last Admin: 04/20/24 20:41 Dose: 8.6 mg Sertraline HCl (Sertraline Hcl 50 Mg Tablet) 150 mg PO DAILY [facility] Last Admin: 04/21/24 08:41 Dose: 150 mg Trazodone HCl (Trazodone Hcl 50 Mg Tablet) 50 mg PO BEDTIME MRX1 PRN PRN Reason: Insomnia Last Admin: 04/21/24 02:27 Dose: 50 mg Vitamin D (Cholecalciferol (Vitamin D3) 25 Mcg Tablet) 50 mcg PO DAILY [facility] Last Admin: 04/21/24 08:41 Dose: 50 mcg Allergies Allergies Allergy/AdvReac Type Severity Reaction Status Date / Time egg [EGG] Allergy Intermediate VOMITING Verified 04/04/24 21:25 oxycodone [OXYCODONE] Allergy Intermediate NAUSEA/NIGH Verified 04/04/24 21:25 TMARES Penicillins [PCN] Allergy Intermediate RASH Verified 04/04/24 21:25 tramadol [TRAMADOL] Allergy Intermediate ITCHING Verified 04/04/24 21:25 acetaminophen [Percocet] Allergy Unknown none Verified 04/04/24 21:25 codeine Allergy Unknown nightmares Verified 04/04/24 21:25 Assessment & Plan Assessment & Plan (1) MDD (major depressive disorder), recurrent episode, moderate: Status: Acute Code(s): F33.1 - Major depressive disorder, recurrent, moderate Plan Ms. Higgins is a 58 year-old woman with long hx of depression, outpatient psychiatric treatment but no prior inpatient treatment who self presented to [facility] ED reporting increasing depression, passive suicidal ideation in context of feeling overwhelmed with caring for her two adopted teenager. We discussed risks, benefits and alternative treatment options. Pt reports shee worries about side effects of medications and at times does not take them consistently. She agreees to continue sertraline 100mg po daily. will hold wellbutrin as it may increase anxious mood and she does not take it regularly anyway. Continue buspar. PLAN 1. Admit to S1, CV, 5 minutes checks for safety. 2. continue sertraline 100mg po daily 3. obtain collateral information 4. aftercare planning. 5. Increase Zoloft up to 150 mg p.o. q.a.m. starting on April 09. 6. Results from MRI did not show major changes. 7. Start bowel regimen due to constipation . 8. Start Cymbalta 20 mg p.o. daily on April 14 for anxiety, depression and neuropathic pain.. On April 14 we are increasing to 20 mg p.o. b.i.d. to target depression, anxiety and chronic pain. On April 15 we increase it up to 30 mg p.o. b.i.d. to target depression anxiety and chronic pain. On April 18 we are increasing Cymbalta to 30 mg in the morning and 60 at night. On April 19, we are increasing to Cymbalta 60 p.o. b.i.d. since there are no side-effects at this moment 9. Discontinue Wellbutrin XL. Reason for continued inpatient stay Substantial Risk for: inability to function, rapid decompensation and med/psych decompensation Time Spent With Patient Time: Total time managing care of this patient today __20__ minutes.
--- NOTE | 2024-04-21 14:53 | PC.NURSE ---
New orders obtained for Cortisporin ear drops for patient's right ear today.
[2024-04-21 19:51] LABS: Glucose, Whole Blood 160 mg/dL (60-115)
[2024-04-21 20:00] VITALS: BP 110/54; PULSE 64; RESP 18; TEMP 36.5; O2SAT 95
[2024-04-21] MEDS: Montelukast Sodium 10 MG TABLET PO (20:30)
[2024-04-21] MEDS: Atorvastatin Calcium 40 MG TABLET PO (20:30)
[2024-04-21] MEDS: Sennosides 8.6 MG TABLET PO (20:30)
[2024-04-21] MEDS: Clotrimazole 1 % Cream 15 GM TUBE 1 APPL TOPICAL (20:36)
[2024-04-21] MEDS: NeoMYCIN/Polymyxin/HC Otic Sol BOTTLE 4 DROP EAR-RIGHT (20:54)
[2024-04-22] MEDS: Omeprazole 20 MG CAPSULE.DR PO (06:29)
[2024-04-22 06:48] LABS: Glucose, Whole Blood 130 mg/dL (60-115)
[2024-04-22 08:00] VITALS: BP 128/68; PULSE 66; RESP 18; TEMP 36; O2SAT 94
[2024-04-22] MEDS: Docusate Sodium 100 MG CAPSULE PO ×2 (08:41→21:08)
[2024-04-22] MEDS: Acetaminophen 325 MG TABLET 650 MG PO (08:41)
[2024-04-22] MEDS: metFORMIN HCl 1,000 MG TABLET 1000 MG PO ×2 (08:41→21:08)
[2024-04-22] MEDS: Aspirin 81 MG TAB.CHEW PO (08:42)
[2024-04-22] MEDS: Cholecalciferol (Vitamin D3) 25 MCG TABLET 50 MCG PO (08:42)
[2024-04-22] MEDS: Empagliflozin 25 MG TABLET PO (08:42)
[2024-04-22] MEDS: Sertraline HCL 50 MG TABLET 150 MG PO (08:42)
[2024-04-22] MEDS: DULoxetine HCl 60 MG CAPSULE.DR PO ×2 (08:42→21:08)
[2024-04-22] MEDS: Clotrimazole 1 % Cream 15 GM TUBE 1 APPL TOPICAL ×2 (09:44→21:07)
[2024-04-22] MEDS: NeoMYCIN/Polymyxin/HC Otic Sol BOTTLE 4 DROP EAR-RIGHT ×3 (09:44→21:07)
[2024-04-22] MEDS: Milk of Magnesia 30 ML ORAL.SUSP PO (09:44)
--- NOTE | 2024-04-22 14:12 | HO.PSYCHPN ---
Subjective Subjective Date of Service: 04/22/24 Reason For Visit: SI Subjective Notes: Conditional Voluntary Interim History: The nursing staff reported the patient had been compliant with treatment. Her affect remains dysphoric and flat. She slept 7 hours. Today we had a family meeting with a relative of the patient and reported family conflicts especially on her 23-year-old daughter who is very oppositional list with her. On interview the patient denies new symptoms, improving slowly. Mental Status Exam Mental Status Exam Patient Appearance: Well Grooomed and Appropriate Patient Orientation: Person and Situation Level of Consciousness: Awake and Appropriate Patient Behavior: Guarded and Passive Mood Description: Withdrawn Affect Description: Constricted Patient Cognition Impaired: Yes Ability to Follow Directions: Good Speech Pattern: Clear Hallucinations: None Delusions: Not Present Thought Process: Distracted and Slowed Thinking Thought Content: positive for [place] and positive for Poverty of Content Judgement: Fair Diagnostics Vital Signs (24Hr): Vital Signs - 24 hr 04/21/24 20:00 04/22/24 08:00 Temperature 97.7 F 96.8 F Pulse Rate 64 66 Respiratory Rate 18 18 Blood Pressure 110/54 L 128/68 Pulse Oximetry 95 94 Oxygen Delivery Method Room Air BMI result Body Mass Index 34.7 Labs 04/04/24 22:19 04/21/24 07:31 Labs: Laboratory Results - last 48 hr 04/20/24 04/21/24 04/21/24 20:40 06:24 07:31 Creatinine 0.65 Estim Creat Clear Calc 104.8 Estimated GFR > 60 POC Glucose 138 H 153 H 04/21/24 04/22/24 19:46 06:32 Creatinine Estim Creat Clear Calc Estimated GFR POC Glucose 160 H 130 H Imaging Radiology Impressions: ITS Impressions Brain MRI 04/07/24 12:59 IMPRESSION: 1. No acute intracranial abnormalities. 2. Mild underlying microangiopathy. Medications Medications Current Medications Acetaminophen (Acetaminophen 325 Mg Tablet) 650 mg PO Q6H PRN PRN Reason: Headache/Pain Mild Scale (1-3) Last Admin: 04/22/24 08:41 Dose: 650 mg Al Hydroxide/Mg Hydroxide (Magnesium Hydrox/Alum Hydrox 30 Ml Oral.Susp) 30 ml PO Q6H PRN PRN Reason: Heartburn/Nausea Albuterol Sulfate (Albuterol Sulfate 90 Mcg 8 Gm Inhaler) 2 puff INHALE Q6H PRN PRN Reason: shortness of breath or wheezing Aspirin (Aspirin 81 Mg Tab.Chew) 81 mg PO DAILY [facility] Last Admin: 04/22/24 08:42 Dose: 81 mg Atorvastatin Calcium (Atorvastatin Calcium 40 Mg Tablet) 40 mg PO BEDTIME [facility] Last Admin: 04/21/24 20:30 Dose: 40 mg Clotrimazole (Clotrimazole 1 % Cream 15 Gm Tube) 1 appl TOPICAL BID [facility]; Protocol Last Admin: 04/22/24 09:44 Dose: 1 appl Docusate Sodium (Docusate Sodium 100 Mg Capsule) 100 mg PO BID [facility] Last Admin: 04/22/24 08:41 Dose: 100 mg Duloxetine HCl (Duloxetine Hcl 60 Mg Capsule.) 60 mg PO BEDTIME [facility] Last Admin: 04/21/24 20:30 Dose: 60 mg Duloxetine HCl (Duloxetine Hcl 60 Mg Capsule.) 60 mg PO DAILY [facility] Last Admin: 04/22/24 08:42 Dose: 60 mg Empagliflozin (Empagliflozin 25 Mg Tablet) 25 mg PO DAILY [facility] Last Admin: 04/22/24 08:42 Dose: 25 mg Lorazepam (Lorazepam 0.5 Mg Tablet) 0.5 mg PO Q8H PRN PRN Reason: Anxiety Last Admin: 04/17/24 20:29 Dose: 0.5 mg Magnesium Hydroxide (Milk Of Magnesia 30 Ml Oral.Susp) 30 ml PO DAILY PRN PRN Reason: Constipation Last Admin: 04/22/24 09:44 Dose: 30 ml Metformin HCl (Metformin Hcl 1,000 Mg Tablet) 1,000 mg PO BID [facility] Last Admin: 04/22/24 08:41 Dose: 1,000 mg Montelukast Sodium (Montelukast Sodium 10 Mg Tablet) 10 mg PO BEDTIME [facility] Last Admin: 04/21/24 20:30 Dose: 10 mg Neomycin/Polymyxin/Hydrocortisone (Neomycin/Polymyxin/Hc Otic Roya Bottle) 4 drop EAR-RIGHT TID [facility] Stop: 04/28/24 14:59 Last Admin: 04/22/24 09:44 Dose: 4 drop Omeprazole (Omeprazole 20 Mg Capsule.) 20 mg PO DAILY@0630 [facility] Last Admin: 04/22/24 06:29 Dose: 20 mg Senna (Sennosides 8.6 Mg Tablet) 8.6 mg PO BEDTIME [facility] Last Admin: 04/21/24 20:30 Dose: 8.6 mg Sertraline HCl (Sertraline Hcl 50 Mg Tablet) 150 mg PO DAILY [facility] Last Admin: 04/22/24 08:42 Dose: 150 mg Trazodone HCl (Trazodone Hcl 50 Mg Tablet) 50 mg PO BEDTIME MRX1 PRN PRN Reason: Insomnia Last Admin: 04/21/24 02:27 Dose: 50 mg Vitamin D (Cholecalciferol (Vitamin D3) 25 Mcg Tablet) 50 mcg PO DAILY [facility] Last Admin: 04/22/24 08:42 Dose: 50 mcg Allergies Allergies Allergy/AdvReac Type Severity Reaction Status Date / Time egg [EGG] Allergy Intermediate VOMITING Verified 04/04/24 21:25 oxycodone [OXYCODONE] Allergy Intermediate NAUSEA/NIGH Verified 04/04/24 21:25 TMARES Penicillins [PCN] Allergy Intermediate RASH Verified 04/04/24 21:25 tramadol [TRAMADOL] Allergy Intermediate ITCHING Verified 04/04/24 21:25 acetaminophen [Percocet] Allergy Unknown none Verified 04/04/24 21:25 codeine Allergy Unknown nightmares Verified 04/04/24 21:25 Assessment & Plan Assessment & Plan (1) MDD (major depressive disorder), recurrent episode, moderate: Status: Acute Code(s): F33.1 - Major depressive disorder, recurrent, moderate Plan Ms. Higgins is a 58 year-old woman with long hx of depression, outpatient psychiatric treatment but no prior inpatient treatment who self presented to [facility] ED reporting increasing depression, passive suicidal ideation in context of feeling overwhelmed with caring for her two adopted teenager. We discussed risks, benefits and alternative treatment options. Pt reports shee worries about side effects of medications and at times does not take them consistently. She agreees to continue sertraline 100mg po daily. will hold wellbutrin as it may increase anxious mood and she does not take it regularly anyway. Continue buspar. PLAN 1. Admit to S1, CV, 5 minutes checks for safety. 2. continue sertraline 100mg po daily 3. obtain collateral information 4. aftercare planning. 5. Increase Zoloft up to 150 mg p.o. q.a.m. starting on April 09. 6. Results from MRI did not show major changes. 7. Start bowel regimen due to constipation . 8. Start Cymbalta 20 mg p.o. daily on April 14 for anxiety, depression and neuropathic pain.. On April 14 we are increasing to 20 mg p.o. b.i.d. to target depression, anxiety and chronic pain. On April 15 we increase it up to 30 mg p.o. b.i.d. to target depression anxiety and chronic pain. On April 18 we are increasing Cymbalta to 30 mg in the morning and 60 at night. On April 19, we are increasing to Cymbalta 60 p.o. b.i.d. since there are no side-effects at this moment 9. Discontinue Wellbutrin XL. Reason for continued inpatient stay Substantial Risk for: inability to function, rapid decompensation and med/psych decompensation Time Spent With Patient Time: Total time managing care of this patient today _20___ minutes.
[2024-04-22 19:05] VITALS: BP 119/71; PULSE 73; RESP 18; TEMP 35.8; O2SAT 96
[2024-04-22 19:47] LABS: Glucose, Whole Blood 125 mg/dL (60-115)
[2024-04-22] MEDS: Sennosides 8.6 MG TABLET PO (21:08)
[2024-04-22] MEDS: Montelukast Sodium 10 MG TABLET PO (21:08)
[2024-04-22] MEDS: Atorvastatin Calcium 40 MG TABLET PO (21:08)
[2024-04-22] MEDS: traZODone HCL 50 MG TABLET PO (21:08)
[2024-04-23] MEDS: Omeprazole 20 MG CAPSULE.DR PO (06:49)
[2024-04-23 07:07] LABS: Glucose, Whole Blood 134 mg/dL (60-115)
[2024-04-23 09:11] VITALS: BP 110/62; PULSE 71; RESP 16; TEMP 36; O2SAT 96
[2024-04-23] MEDS: metFORMIN HCl 1,000 MG TABLET 1000 MG PO ×2 (09:14→19:50)
[2024-04-23] MEDS: Sertraline HCL 50 MG TABLET 150 MG PO (09:14)
[2024-04-23] MEDS: Empagliflozin 25 MG TABLET PO (09:15)
[2024-04-23] MEDS: DULoxetine HCl 60 MG CAPSULE.DR PO ×2 (09:16→19:51)
[2024-04-23] MEDS: Cholecalciferol (Vitamin D3) 25 MCG TABLET 50 MCG PO (09:16)
[2024-04-23] MEDS: Acetaminophen 325 MG TABLET 650 MG PO ×2 (09:17→15:29)
[2024-04-23] MEDS: Docusate Sodium 100 MG CAPSULE PO ×2 (09:17→19:51)
[2024-04-23] MEDS: Aspirin 81 MG TAB.CHEW PO (09:17)
[2024-04-23] MEDS: NeoMYCIN/Polymyxin/HC Otic Sol BOTTLE 4 DROP EAR-RIGHT ×3 (09:20→20:28)
[2024-04-23] MEDS: bisacodyL 10 MG SUPP.RECT PR (15:34)
--- NOTE | 2024-04-23 17:56 | P.PNPSI_ITS ---
Subjective Subjective Date of Service: 04/23/24 Reason For Visit: SI Interim History: Met with patient; discussed with team Patient says she is good and that she has less anxiety today. Patient complaining of constipation and biscoydl added. Mental Status Exam Mental Status Exam Patient Appearance: Well Grooomed and Appropriate Patient Orientation: Person and Situation Level of Consciousness: Awake and Appropriate Patient Behavior: Guarded and Passive Mood Description: Withdrawn Affect Description: Constricted Patient Cognition Impaired: Yes Ability to Follow Directions: Good Speech Pattern: Clear Hallucinations: None Delusions: Not Present Thought Process: Distracted and Slowed Thinking Thought Content: positive for [place] and positive for Poverty of Content Judgement: Fair Diagnostics Vital Signs (24Hr): Vital Signs - 24 hr 04/22/24 19:05 04/23/24 09:11 Temperature 96.4 F L 96.8 F Pulse Rate 73 71 Respiratory Rate 18 16 Blood Pressure 119/71 110/62 Pulse Oximetry 96 96 Oxygen Delivery Method Room Air Room Air BMI result Body Mass Index 34.7 Labs 04/04/24 22:19 04/21/24 07:31 Labs: Laboratory Results - last 48 hr 04/21/24 04/22/24 04/22/24 19:46 06:32 19:41 POC Glucose 160 H 130 H 125 H 04/23/24 06:51 POC Glucose 134 H Imaging Radiology Impressions: ITS Impressions Brain MRI 04/07/24 12:59 IMPRESSION: 1. No acute intracranial abnormalities. 2. Mild underlying microangiopathy. Medications Medications Current Medications Acetaminophen (Acetaminophen 325 Mg Tablet) 650 mg PO Q6H PRN PRN Reason: Headache/Pain Mild Scale (1-3) Last Admin: 04/23/24 15:29 Dose: 650 mg Al Hydroxide/Mg Hydroxide (Magnesium Hydrox/Alum Hydrox 30 Ml Oral.Susp) 30 ml PO Q6H PRN PRN Reason: Heartburn/Nausea Albuterol Sulfate (Albuterol Sulfate 90 Mcg 8 Gm Inhaler) 2 puff INHALE Q6H PRN PRN Reason: shortness of breath or wheezing Aspirin (Aspirin 81 Mg Tab.Chew) 81 mg PO DAILY [facility] Last Admin: 04/23/24 09:17 Dose: 81 mg Atorvastatin Calcium (Atorvastatin Calcium 40 Mg Tablet) 40 mg PO BEDTIME [facility] Last Admin: 04/22/24 21:08 Dose: 40 mg Bisacodyl (Bisacodyl 10 Mg Supp.Rect) 10 mg TN DAILY PRN PRN Reason: Constipation Last Admin: 04/23/24 15:34 Dose: 10 mg Clotrimazole (Clotrimazole 1 % Cream 15 Gm Tube) 1 appl TOPICAL BID [facility]; Protocol Last Admin: 04/23/24 09:21 Dose: Not Given Docusate Sodium (Docusate Sodium 100 Mg Capsule) 100 mg PO BID [facility] Last Admin: 04/23/24 09:17 Dose: 100 mg Duloxetine HCl (Duloxetine Hcl 60 Mg Capsule.Dr) 60 mg PO BEDTIME [facility] Last Admin: 04/22/24 21:08 Dose: 60 mg Duloxetine HCl (Duloxetine Hcl 60 Mg Capsule.Dr) 60 mg PO DAILY [facility] Last Admin: 04/23/24 09:16 Dose: 60 mg Empagliflozin (Empagliflozin 25 Mg Tablet) 25 mg PO DAILY [facility] Last Admin: 04/23/24 09:15 Dose: 25 mg Lorazepam (Lorazepam 0.5 Mg Tablet) 0.5 mg PO Q8H PRN PRN Reason: Anxiety Last Admin: 04/17/24 20:29 Dose: 0.5 mg Magnesium Hydroxide (Milk Of Magnesia 30 Ml Oral.Susp) 30 ml PO DAILY PRN PRN Reason: Constipation Last Admin: 04/22/24 09:44 Dose: 30 ml Metformin HCl (Metformin Hcl 1,000 Mg Tablet) 1,000 mg PO BID [facility] Last Admin: 04/23/24 09:14 Dose: 1,000 mg Montelukast Sodium (Montelukast Sodium 10 Mg Tablet) 10 mg PO BEDTIME [facility] Last Admin: 04/22/24 21:08 Dose: 10 mg Neomycin/Polymyxin/Hydrocortisone (Neomycin/Polymyxin/Hc Otic Roya Bottle) 4 drop EAR-RIGHT TID [facility] Stop: 04/28/24 14:59 Last Admin: 04/23/24 15:35 Dose: 4 drop Omeprazole (Omeprazole 20 Mg Capsule.Dr) 20 mg PO DAILY@0630 [facility] Last Admin: 04/23/24 06:49 Dose: 20 mg Senna (Sennosides 8.6 Mg Tablet) 8.6 mg PO BEDTIME [facility] Last Admin: 04/22/24 21:08 Dose: 8.6 mg Sertraline HCl (Sertraline Hcl 50 Mg Tablet) 150 mg PO DAILY [facility] Last Admin: 04/23/24 09:14 Dose: 150 mg Trazodone HCl (Trazodone Hcl 50 Mg Tablet) 50 mg PO BEDTIME MRX1 PRN PRN Reason: Insomnia Last Admin: 04/22/24 21:08 Dose: 50 mg Vitamin D (Cholecalciferol (Vitamin D3) 25 Mcg Tablet) 50 mcg PO DAILY [facility] Last Admin: 04/23/24 09:16 Dose: 50 mcg Allergies Allergies Allergy/AdvReac Type Severity Reaction Status Date / Time egg [EGG] Allergy Intermediate VOMITING Verified 04/04/24 21:25 oxycodone [OXYCODONE] Allergy Intermediate NAUSEA/NIGH Verified 04/04/24 21:25 TMARES Penicillins [PCN] Allergy Intermediate RASH Verified 04/04/24 21:25 tramadol [TRAMADOL] Allergy Intermediate ITCHING Verified 04/04/24 21:25 acetaminophen [Percocet] Allergy Unknown none Verified 04/04/24 21:25 codeine Allergy Unknown nightmares Verified 04/04/24 21:25 Assessment & Plan Assessment & Plan (1) MDD (major depressive disorder), recurrent episode, moderate: Status: Acute Code(s): F33.1 - Major depressive disorder, recurrent, moderate Plan Ms. Higgins is a 58 year-old woman with long hx of depression, outpatient psychiatric treatment but no prior inpatient treatment who self presented to [facility] ED reporting increasing depression, passive suicidal ideation in context of feeling overwhelmed with caring for her two adopted teenager. We discussed risks, benefits and alternative treatment options. Pt reports shee worries about side effects of medications and at times does not take them consistently. She agreees to continue sertraline 100mg po daily. will hold wellbutrin as it may increase anxious mood and she does not take it regularly anyway. Continue buspar. 04/23 continue current treatment plan -added Biscodyl suppository for constipation PLAN 1. Admit to S1, CV, 5 minutes checks for safety. 2. continue sertraline 100mg po daily 3. obtain collateral information 4. aftercare planning. 5. Increase Zoloft up to 150 mg p.o. q.a.m. starting on April 09. 6. Results from MRI did not show major changes. 7. Start bowel regimen due to constipation . 8. Start Cymbalta 20 mg p.o. daily on April 14 for anxiety, depression and neuropathic pain.. On April 14 we are increasing to 20 mg p.o. b.i.d. to target depression, anxiety and chronic pain. On April 15 we increase it up to 30 mg p.o. b.i.d. to target depression anxiety and chronic pain. On April 18 we are increasing Cymbalta to 30 mg in the morning and 60 at night. On April 19, we are increasing to Cymbalta 60 p.o. b.i.d. since there are no side-effects at this moment 9. Discontinue Wellbutrin XL. Patient educated on: diagnosis Reason for continued inpatient stay Substantial Risk for: rapid decompensation Time Spent With Patient Time: Total time managing care of this patient today ____ minutes.
[2024-04-23 19:41] LABS: Glucose, Whole Blood 172 mg/dL (60-115)
[2024-04-23] MEDS: Atorvastatin Calcium 40 MG TABLET PO (19:50)
[2024-04-23] MEDS: Sennosides 8.6 MG TABLET PO (19:51)
[2024-04-23] MEDS: Montelukast Sodium 10 MG TABLET PO (19:51)
[2024-04-23 20:00] VITALS: BP 116/67; PULSE 69; TEMP 35.5; O2SAT 99
[2024-04-23] MEDS: Clotrimazole 1 % Cream 15 GM TUBE 1 APPL TOPICAL (20:28)
[2024-04-24] MEDS: Omeprazole 20 MG CAPSULE.DR PO (05:38)
[2024-04-24 06:44] LABS: Glucose, Whole Blood 131 mg/dL (60-115)
[2024-04-24 08:00] VITALS: BP 115/71; PULSE 69; RESP 18; TEMP 36.6; O2SAT 98
[2024-04-24] MEDS: Docusate Sodium 100 MG CAPSULE PO ×2 (08:03→20:53)
[2024-04-24] MEDS: Empagliflozin 25 MG TABLET PO (08:03)
[2024-04-24] MEDS: metFORMIN HCl 1,000 MG TABLET 1000 MG PO ×2 (08:03→20:54)
[2024-04-24] MEDS: Cholecalciferol (Vitamin D3) 25 MCG TABLET 50 MCG PO (08:03)
[2024-04-24] MEDS: Aspirin 81 MG TAB.CHEW PO (08:03)
[2024-04-24] MEDS: Sertraline HCL 50 MG TABLET 150 MG PO (08:03)
[2024-04-24] MEDS: DULoxetine HCl 60 MG CAPSULE.DR PO ×2 (08:04→20:53)
[2024-04-24] MEDS: NeoMYCIN/Polymyxin/HC Otic Sol BOTTLE 4 DROP EAR-RIGHT ×3 (08:12→21:12)
--- NOTE | 2024-04-24 15:41 | P.PNPSI_ITS ---
Subjective Subjective Date of Service: 04/24/24 Reason For Visit: SI Interim History: Met with patient; discussed with team Patient reports that she is good and has no complaints and no requests. Staff reports good behavior control, overall stable. Mental Status Exam Mental Status Exam Patient Appearance: Well Grooomed and Appropriate Patient Orientation: Person and Situation Level of Consciousness: Awake and Appropriate Patient Behavior: Appropriate, Cooperative, Passive and Good Eye Contact Mood Description: Withdrawn Affect Description: Constricted Patient Cognition Impaired: Yes Ability to Follow Directions: Good Speech Pattern: Clear Hallucinations: None Delusions: Not Present Thought Process: Distracted and Slowed Thinking Thought Content: positive for [place] and positive for Poverty of Content Judgement: Fair Diagnostics Vital Signs (24Hr): Vital Signs - 24 hr 04/23/24 20:00 04/24/24 08:00 Temperature 96 F L 97.9 F Pulse Rate 69 69 Respiratory Rate 18 Blood Pressure 116/67 115/71 Pulse Oximetry 99 98 Oxygen Delivery Method Room Air Room Air BMI result Body Mass Index 34.7 Labs 04/04/24 22:19 04/21/24 07:31 Labs: Laboratory Results - last 48 hr 04/22/24 04/23/24 04/23/24 19:41 06:51 19:36 POC Glucose 125 H 134 H 172 H 04/24/24 06:34 POC Glucose 131 H Imaging Radiology Impressions: ITS Impressions Brain MRI 04/07/24 12:59 IMPRESSION: 1. No acute intracranial abnormalities. 2. Mild underlying microangiopathy. Medications Medications Current Medications Acetaminophen (Acetaminophen 325 Mg Tablet) 650 mg PO Q6H PRN PRN Reason: Headache/Pain Mild Scale (1-3) Last Admin: 04/23/24 15:29 Dose: 650 mg Al Hydroxide/Mg Hydroxide (Magnesium Hydrox/Alum Hydrox 30 Ml Oral.Susp) 30 ml PO Q6H PRN PRN Reason: Heartburn/Nausea Albuterol Sulfate (Albuterol Sulfate 90 Mcg 8 Gm Inhaler) 2 puff INHALE Q6H PRN PRN Reason: shortness of breath or wheezing Aspirin (Aspirin 81 Mg Tab.Chew) 81 mg PO DAILY [facility] Last Admin: 04/24/24 08:03 Dose: 81 mg Atorvastatin Calcium (Atorvastatin Calcium 40 Mg Tablet) 40 mg PO BEDTIME [facility] Last Admin: 04/23/24 19:50 Dose: 40 mg Bisacodyl (Bisacodyl 10 Mg Supp.Rect) 10 mg [place] DAILY PRN PRN Reason: Constipation Last Admin: 04/23/24 15:34 Dose: 10 mg Clotrimazole (Clotrimazole 1 % Cream 15 Gm Tube) 1 appl TOPICAL BID [facility]; Protocol Last Admin: 04/24/24 08:03 Dose: Not Given Docusate Sodium (Docusate Sodium 100 Mg Capsule) 100 mg PO BID [facility] Last Admin: 04/24/24 08:03 Dose: 100 mg Duloxetine HCl (Duloxetine Hcl 60 Mg Capsule.Dr) 60 mg PO BEDTIME [facility] Last Admin: 04/23/24 19:51 Dose: 60 mg Duloxetine HCl (Duloxetine Hcl 60 Mg Capsule.Dr) 60 mg PO DAILY [facility] Last Admin: 04/24/24 08:04 Dose: 60 mg Empagliflozin (Empagliflozin 25 Mg Tablet) 25 mg PO DAILY [facility] Last Admin: 04/24/24 08:03 Dose: 25 mg Magnesium Hydroxide (Milk Of Magnesia 30 Ml Oral.Susp) 30 ml PO DAILY PRN PRN Reason: Constipation Last Admin: 04/22/24 09:44 Dose: 30 ml Metformin HCl (Metformin Hcl 1,000 Mg Tablet) 1,000 mg PO BID [facility] Last Admin: 04/24/24 08:03 Dose: 1,000 mg Montelukast Sodium (Montelukast Sodium 10 Mg Tablet) 10 mg PO BEDTIME [facility] Last Admin: 04/23/24 19:51 Dose: 10 mg Neomycin/Polymyxin/Hydrocortisone (Neomycin/Polymyxin/Hc Otic Roya Bottle) 4 drop EAR-RIGHT TID [facility] Stop: 04/28/24 14:59 Last Admin: 04/24/24 15:02 Dose: 4 drop Omeprazole (Omeprazole 20 Mg Capsule.Dr) 20 mg PO DAILY@0630 [facility] Last Admin: 04/24/24 05:38 Dose: 20 mg Senna (Sennosides 8.6 Mg Tablet) 8.6 mg PO BEDTIME [facility] Last Admin: 04/23/24 19:51 Dose: 8.6 mg Sertraline HCl (Sertraline Hcl 50 Mg Tablet) 150 mg PO DAILY [facility] Last Admin: 04/24/24 08:03 Dose: 150 mg Trazodone HCl (Trazodone Hcl 50 Mg Tablet) 50 mg PO BEDTIME MRX1 PRN PRN Reason: Insomnia Last Admin: 04/22/24 21:08 Dose: 50 mg Vitamin D (Cholecalciferol (Vitamin D3) 25 Mcg Tablet) 50 mcg PO DAILY [facility] Last Admin: 04/24/24 08:03 Dose: 50 mcg Allergies Allergies Allergy/AdvReac Type Severity Reaction Status Date / Time egg [EGG] Allergy Intermediate VOMITING Verified 04/04/24 21:25 oxycodone [OXYCODONE] Allergy Intermediate NAUSEA/NIGH Verified 04/04/24 21:25 TMARES Penicillins [PCN] Allergy Intermediate RASH Verified 04/04/24 21:25 tramadol [TRAMADOL] Allergy Intermediate ITCHING Verified 04/04/24 21:25 acetaminophen [Percocet] Allergy Unknown none Verified 04/04/24 21:25 codeine Allergy Unknown nightmares Verified 04/04/24 21:25 Assessment & Plan Assessment & Plan (1) MDD (major depressive disorder), recurrent episode, moderate: Status: Acute Code(s): F33.1 - Major depressive disorder, recurrent, moderate Plan Ms. Higgins is a 58 year-old woman with long hx of depression, outpatient psychiatric treatment but no prior inpatient treatment who self presented [place] [facility] reporting increasing depression, passive suicidal ideation in context of feeling overwhelmed with caring for her two adopted teenager. We discussed risks, benefits and alternative treatment options. Pt reports shee worries about side effects of medications and at times does not take them consistently. She agreees to continue sertraline 100mg po daily. will hold wellbutrin as it may increase anxious mood and she does not take it regularly anyway. Continue buspar. 04/23 continue current treatment plan -added Biscodyl suppository for constipation 04/24 continue current treatment plan PLAN 1. Admit to S1, CV, 5 minutes checks for safety. 2. continue sertraline 100mg po daily 3. obtain collateral information 4. aftercare planning. 5. Increase Zoloft up to 150 mg p.o. q.a.m. starting on April 09. 6. Results from MRI did not show major changes. 7. Start bowel regimen due to constipation . 8. Start Cymbalta 20 mg p.o. daily on April 14 for anxiety, depression and neuropathic pain.. On April 14 we are increasing to 20 mg p.o. b.i.d. to target depression, anxiety and chronic pain. On April 15 we increase it up to 30 mg p.o. b.i.d. to target depression anxiety and chronic pain. On April 18 we are increasing Cymbalta to 30 mg in the morning and 60 at night. On April 19, we are increasing to Cymbalta 60 p.o. b.i.d. since there are no side-effects at this moment 9. Discontinue Wellbutrin XL. Patient educated on: diagnosis Informed Consent: understands Reason for continued inpatient stay Substantial Risk for: stable for discharge and med/psych decompensation Time Spent With Patient Time: Total time managing care of this patient today ____ minutes.
[2024-04-24 20:00] VITALS: BP 113/68; PULSE 72; RESP 18; TEMP 36.3; O2SAT 96
[2024-04-24 20:10] LABS: Glucose, Whole Blood 123 mg/dL (60-115)
[2024-04-24] MEDS: Atorvastatin Calcium 40 MG TABLET PO (20:53)
[2024-04-24] MEDS: Sennosides 8.6 MG TABLET PO (20:54)
[2024-04-24] MEDS: Montelukast Sodium 10 MG TABLET PO (20:54)
[2024-04-24] MEDS: Clotrimazole 1 % Cream 15 GM TUBE 1 APPL TOPICAL (21:12)
[2024-04-24] MEDS: Acetaminophen 325 MG TABLET 650 MG PO (21:29)
[2024-04-25] MEDS: Omeprazole 20 MG CAPSULE.DR PO (05:58)
[2024-04-25 06:42] LABS: Glucose, Whole Blood 142 mg/dL (60-115)
[2024-04-25 07:55] VITALS: BP 113/69; PULSE 72; RESP 18; TEMP 36.7; O2SAT 98
[2024-04-25] MEDS: Sertraline HCL 50 MG TABLET 150 MG PO (08:00)
[2024-04-25] MEDS: Aspirin 81 MG TAB.CHEW PO (08:01)
[2024-04-25] MEDS: DULoxetine HCl 60 MG CAPSULE.DR PO ×2 (08:01→21:03)
[2024-04-25] MEDS: metFORMIN HCl 1,000 MG TABLET 1000 MG PO ×2 (08:01→21:03)
[2024-04-25] MEDS: Cholecalciferol (Vitamin D3) 25 MCG TABLET 50 MCG PO (08:01)
[2024-04-25] MEDS: Empagliflozin 25 MG TABLET PO (08:01)
[2024-04-25] MEDS: Docusate Sodium 100 MG CAPSULE PO ×2 (08:02→21:04)
[2024-04-25] MEDS: NeoMYCIN/Polymyxin/HC Otic Sol BOTTLE 4 DROP EAR-RIGHT ×3 (08:18→21:07)
--- NOTE | 2024-04-25 12:34 | HO.PSYCHPN ---
Subjective Subjective Date of Service: 04/25/24 Reason For Visit: SI Subjective Notes: Conditional Voluntary Interim History: The nursing staff reported that her the patient was scored 5/10 and she slept 5 hours. The social work instructor reported that last Thursday she had a family meeting with her niece who is very supportive. Apparently there family issues with her adopted 22-year-old daughter. On interview the patient denies new symptoms she feels slightly better. Mental Status Exam Mental Status Exam Patient Appearance: Appropriate Patient Orientation: Person and Situation Level of Consciousness: Awake and Appropriate Patient Behavior: Guarded and Passive Mood Description: Withdrawn Affect Description: Constricted Patient Cognition Impaired: Yes Ability to Follow Directions: Good Speech Pattern: Clear Hallucinations: None Delusions: Not Present Thought Process: Distracted and Slowed Thinking Thought Content: positive for [place] and positive for Poverty of Content Judgement: Fair Diagnostics Vital Signs (24Hr): Vital Signs - 24 hr 04/24/24 20:00 04/25/24 07:55 Temperature 97.3 F 98.1 F Pulse Rate 72 72 Respiratory Rate 18 18 Blood Pressure 113/68 113/69 Pulse Oximetry 96 98 Oxygen Delivery Method Room Air Room Air BMI result Body Mass Index 34.7 Labs 04/04/24 22:19 04/21/24 07:31 Labs: Laboratory Results - last 48 hr 04/23/24 04/24/24 04/24/24 19:36 06:34 20:02 POC Glucose 172 H 131 H 123 H 04/25/24 06:33 POC Glucose 142 H Imaging Radiology Impressions: ITS Impressions Brain MRI 04/07/24 12:59 IMPRESSION: 1. No acute intracranial abnormalities. 2. Mild underlying microangiopathy. Medications Medications Current Medications Acetaminophen (Acetaminophen 325 Mg Tablet) 650 mg PO Q6H PRN PRN Reason: Headache/Pain Mild Scale (1-3) Last Admin: 04/24/24 21:29 Dose: 650 mg Al Hydroxide/Mg Hydroxide (Magnesium Hydrox/Alum Hydrox 30 Ml Oral.Susp) 30 ml PO Q6H PRN PRN Reason: Heartburn/Nausea Albuterol Sulfate (Albuterol Sulfate 90 Mcg 8 Gm Inhaler) 2 puff INHALE Q6H PRN PRN Reason: shortness of breath or wheezing Aspirin (Aspirin 81 Mg Tab.Chew) 81 mg PO DAILY [facility] Last Admin: 04/25/24 08:01 Dose: 81 mg Atorvastatin Calcium (Atorvastatin Calcium 40 Mg Tablet) 40 mg PO BEDTIME [facility] Last Admin: 04/24/24 20:53 Dose: 40 mg Bisacodyl (Bisacodyl 10 Mg Supp.Rect) 10 mg [place] DAILY PRN PRN Reason: Constipation Last Admin: 04/23/24 15:34 Dose: 10 mg Clotrimazole (Clotrimazole 1 % Cream 15 Gm Tube) 1 appl TOPICAL BID [facility]; Protocol Last Admin: 04/25/24 08:17 Dose: Not Given Docusate Sodium (Docusate Sodium 100 Mg Capsule) 100 mg PO BID [facility] Last Admin: 04/25/24 08:02 Dose: 100 mg Duloxetine HCl (Duloxetine Hcl 60 Mg Capsule.) 60 mg PO BEDTIME [facility] Last Admin: 04/24/24 20:53 Dose: 60 mg Duloxetine HCl (Duloxetine Hcl 60 Mg Capsule.) 60 mg PO DAILY [facility] Last Admin: 04/25/24 08:01 Dose: 60 mg Empagliflozin (Empagliflozin 25 Mg Tablet) 25 mg PO DAILY [facility] Last Admin: 04/25/24 08:01 Dose: 25 mg Lorazepam (Lorazepam 0.5 Mg Tablet) 0.5 mg PO Q8H PRN PRN Reason: Anxiety Magnesium Hydroxide (Milk Of Magnesia 30 Ml Oral.Susp) 30 ml PO DAILY PRN PRN Reason: Constipation Last Admin: 04/22/24 09:44 Dose: 30 ml Metformin HCl (Metformin Hcl 1,000 Mg Tablet) 1,000 mg PO BID [facility] Last Admin: 04/25/24 08:01 Dose: 1,000 mg Montelukast Sodium (Montelukast Sodium 10 Mg Tablet) 10 mg PO BEDTIME [facility] Last Admin: 04/24/24 20:54 Dose: 10 mg Neomycin/Polymyxin/Hydrocortisone (Neomycin/Polymyxin/Hc Otic Roya Bottle) 4 drop EAR-RIGHT TID [facility] Stop: 04/28/24 14:59 Last Admin: 04/25/24 08:18 Dose: 4 drop Omeprazole (Omeprazole 20 Mg Capsule.) 20 mg PO DAILY@0630 [facility] Last Admin: 04/25/24 05:58 Dose: 20 mg Senna (Sennosides 8.6 Mg Tablet) 8.6 mg PO BEDTIME [facility] Last Admin: 04/24/24 20:54 Dose: 8.6 mg Sertraline HCl (Sertraline Hcl 50 Mg Tablet) 150 mg PO DAILY [facility] Last Admin: 04/25/24 08:00 Dose: 150 mg Trazodone HCl (Trazodone Hcl 50 Mg Tablet) 50 mg PO BEDTIME MRX1 PRN PRN Reason: Insomnia Last Admin: 04/22/24 21:08 Dose: 50 mg Vitamin D (Cholecalciferol (Vitamin D3) 25 Mcg Tablet) 50 mcg PO DAILY [facility] Last Admin: 04/25/24 08:01 Dose: 50 mcg Allergies Allergies Allergy/AdvReac Type Severity Reaction Status Date / Time egg [EGG] Allergy Intermediate VOMITING Verified 04/04/24 21:25 oxycodone [OXYCODONE] Allergy Intermediate NAUSEA/NIGH Verified 04/04/24 21:25 TMARES Penicillins [PCN] Allergy Intermediate RASH Verified 04/04/24 21:25 tramadol [TRAMADOL] Allergy Intermediate ITCHING Verified 04/04/24 21:25 acetaminophen [Percocet] Allergy Unknown none Verified 04/04/24 21:25 codeine Allergy Unknown nightmares Verified 04/04/24 21:25 Assessment & Plan Assessment & Plan (1) MDD (major depressive disorder), recurrent episode, moderate: Status: Acute Code(s): F33.1 - Major depressive disorder, recurrent, moderate Plan Ms. Higgins is a 58 year-old woman with long hx of depression, outpatient psychiatric treatment but no prior inpatient treatment who self presented to [facility] [facility] reporting increasing depression, passive suicidal ideation in context of feeling overwhelmed with caring for her two adopted teenager. We discussed risks, benefits and alternative treatment options. Pt reports shee worries about side effects of medications and at times does not take them consistently. She agreees to continue sertraline 100mg po daily. will hold wellbutrin as it may increase anxious mood and she does not take it regularly anyway. Continue buspar. 04/23 continue current treatment plan -added Biscodyl suppository for constipation 04/24 continue current treatment plan PLAN 1. Admit to S1, CV, 5 minutes checks for safety. 2. continue sertraline 100mg po daily 3. obtain collateral information 4. aftercare planning. 5. Increase Zoloft up to 150 mg p.o. q.a.m. starting on April 09. 6. Results from MRI did not show major changes. 7. Start bowel regimen due to constipation . 8. Start Cymbalta 20 mg p.o. daily on April 14 for anxiety, depression and neuropathic pain.. On April 14 we are increasing to 20 mg p.o. b.i.d. to target depression, anxiety and chronic pain. On April 15 we increase it up to 30 mg p.o. b.i.d. to target depression anxiety and chronic pain. On April 18 we are increasing Cymbalta to 30 mg in the morning and 60 at night. On April 19, we are increasing to Cymbalta 60 p.o. b.i.d. since there are no side-effects at this moment 9. Discontinue Wellbutrin XL. Reason for continued inpatient stay Substantial Risk for: inability to function, rapid decompensation and med/psych decompensation Time Spent With Patient Time: Total time managing care of this patient today __20__ minutes.
[2024-04-25 20:00] VITALS: BP 117/75; PULSE 75; RESP 16; TEMP 36.2; O2SAT 97
[2024-04-25] MEDS: traZODone HCL 50 MG TABLET PO (21:03)
[2024-04-25] MEDS: Montelukast Sodium 10 MG TABLET PO (21:03)
[2024-04-25] MEDS: Sennosides 8.6 MG TABLET PO (21:03)
[2024-04-25 21:04] LABS: Glucose, Whole Blood 148 mg/dL (60-115)
[2024-04-25] MEDS: Acetaminophen 325 MG TABLET 650 MG PO (21:04)
[2024-04-25] MEDS: Atorvastatin Calcium 40 MG TABLET PO (21:04)
[2024-04-25] MEDS: Clotrimazole 1 % Cream 15 GM TUBE 1 APPL TOPICAL (21:06)
[2024-04-26] MEDS: Omeprazole 20 MG CAPSULE.DR PO (06:41)
[2024-04-26 06:58] LABS: Glucose, Whole Blood 122 mg/dL (60-115)
[2024-04-26 08:17] VITALS: BP 117/72; PULSE 72; RESP 16; TEMP 36.1; O2SAT 97
[2024-04-26] MEDS: DULoxetine HCl 60 MG CAPSULE.DR PO ×2 (08:29→20:40)
[2024-04-26] MEDS: Aspirin 81 MG TAB.CHEW PO (08:29)
[2024-04-26] MEDS: Docusate Sodium 100 MG CAPSULE PO ×2 (08:29→20:41)
[2024-04-26] MEDS: Sertraline HCL 50 MG TABLET 150 MG PO (08:29)
[2024-04-26] MEDS: Cholecalciferol (Vitamin D3) 25 MCG TABLET 50 MCG PO (08:29)
[2024-04-26] MEDS: metFORMIN HCl 1,000 MG TABLET 1000 MG PO ×2 (08:30→20:40)
[2024-04-26] MEDS: Empagliflozin 25 MG TABLET PO (08:30)
[2024-04-26] MEDS: Clotrimazole 1 % Cream 15 GM TUBE 1 APPL TOPICAL ×2 (08:31→20:45)
[2024-04-26] MEDS: NeoMYCIN/Polymyxin/HC Otic Sol BOTTLE 4 DROP EAR-RIGHT ×3 (08:31→20:46)
[2024-04-26] MEDS: Acetaminophen 325 MG TABLET 650 MG PO (09:12)
--- NOTE | 2024-04-26 12:29 | HO.PSYCHPN ---
Subjective Subjective Date of Service: 04/26/24 Reason For Visit: SI Subjective Notes: Conditional Voluntary Interim History: The nursing staff reported the patient had been compliant with treatment, she showed some flat affect. The occupational therapist reported that she had been more engageable and oriented in groups. On interview the patient reports that she is feeling better and she is ready for discharge tomorrow. Mental Status Exam Mental Status Exam Patient Appearance: Appropriate Patient Orientation: Person and Situation Level of Consciousness: Awake and Appropriate Patient Behavior: Guarded and Passive Mood Description: Calm Affect Description: Constricted Patient Cognition Impaired: Yes Ability to Follow Directions: Good Speech Pattern: Clear Hallucinations: None Delusions: Not Present Thought Process: Distracted and Linear Thought Content: positive for [place] and positive for Poverty of Content Judgement: Fair Diagnostics Vital Signs (24Hr): Vital Signs - 24 hr 04/25/24 20:00 04/26/24 08:17 Temperature 97.1 F 97.0 F Pulse Rate 75 72 Respiratory Rate 16 16 Blood Pressure 117/75 117/72 Pulse Oximetry 97 97 Oxygen Delivery Method Room Air Room Air BMI result Body Mass Index 34.7 Labs 04/04/24 22:19 04/21/24 07:31 Labs: Laboratory Results - last 48 hr 04/24/24 04/25/24 04/25/24 20:02 06:33 20:58 POC Glucose 123 H 142 H 148 H 04/26/24 06:41 POC Glucose 122 H Imaging Radiology Impressions: ITS Impressions Brain MRI 04/07/24 12:59 IMPRESSION: 1. No acute intracranial abnormalities. 2. Mild underlying microangiopathy. Medications Medications Current Medications Acetaminophen (Acetaminophen 325 Mg Tablet) 650 mg PO Q6H PRN PRN Reason: Headache/Pain Mild Scale (1-3) Last Admin: 04/26/24 09:12 Dose: 650 mg Al Hydroxide/Mg Hydroxide (Magnesium Hydrox/Alum Hydrox 30 Ml Oral.Susp) 30 ml PO Q6H PRN PRN Reason: Heartburn/Nausea Albuterol Sulfate (Albuterol Sulfate 90 Mcg 8 Gm Inhaler) 2 puff INHALE Q6H PRN PRN Reason: shortness of breath or wheezing Aspirin (Aspirin 81 Mg Tab.Chew) 81 mg PO DAILY [facility] Last Admin: 04/26/24 08:29 Dose: 81 mg Atorvastatin Calcium (Atorvastatin Calcium 40 Mg Tablet) 40 mg PO BEDTIME [facility] Last Admin: 04/25/24 21:04 Dose: 40 mg Bisacodyl (Bisacodyl 10 Mg Supp.Rect) 10 mg [place] DAILY PRN PRN Reason: Constipation Last Admin: 04/23/24 15:34 Dose: 10 mg Clotrimazole (Clotrimazole 1 % Cream 15 Gm Tube) 1 appl TOPICAL BID [facility]; Protocol Last Admin: 04/26/24 08:31 Dose: 1 appl Docusate Sodium (Docusate Sodium 100 Mg Capsule) 100 mg PO BID [facility] Last Admin: 04/26/24 08:29 Dose: 100 mg Duloxetine HCl (Duloxetine Hcl 60 Mg Capsule.Dr) 60 mg PO BEDTIME [facility] Last Admin: 04/25/24 21:03 Dose: 60 mg Duloxetine HCl (Duloxetine Hcl 60 Mg Capsule.Dr) 60 mg PO DAILY [facility] Last Admin: 04/26/24 08:29 Dose: 60 mg Empagliflozin (Empagliflozin 25 Mg Tablet) 25 mg PO DAILY [facility] Last Admin: 04/26/24 08:30 Dose: 25 mg Lorazepam (Lorazepam 0.5 Mg Tablet) 0.5 mg PO Q8H PRN PRN Reason: Anxiety Magnesium Hydroxide (Milk Of Magnesia 30 Ml Oral.Susp) 30 ml PO DAILY PRN PRN Reason: Constipation Last Admin: 04/22/24 09:44 Dose: 30 ml Metformin HCl (Metformin Hcl 1,000 Mg Tablet) 1,000 mg PO BID [facility] Last Admin: 04/26/24 08:30 Dose: 1,000 mg Montelukast Sodium (Montelukast Sodium 10 Mg Tablet) 10 mg PO BEDTIME [facility] Last Admin: 04/25/24 21:03 Dose: 10 mg Neomycin/Polymyxin/Hydrocortisone (Neomycin/Polymyxin/Hc Otic Roya Bottle) 4 drop EAR-RIGHT TID [facility] Stop: 04/28/24 14:59 Last Admin: 04/26/24 08:31 Dose: 4 drop Omeprazole (Omeprazole 20 Mg Capsule.Dr) 20 mg PO DAILY@0630 [facility] Last Admin: 04/26/24 06:41 Dose: 20 mg Senna (Sennosides 8.6 Mg Tablet) 8.6 mg PO BEDTIME [facility] Last Admin: 04/25/24 21:03 Dose: 8.6 mg Sertraline HCl (Sertraline Hcl 50 Mg Tablet) 150 mg PO DAILY [facility] Last Admin: 04/26/24 08:29 Dose: 150 mg Trazodone HCl (Trazodone Hcl 50 Mg Tablet) 50 mg PO BEDTIME MRX1 PRN PRN Reason: Insomnia Last Admin: 04/25/24 21:03 Dose: 50 mg Vitamin D (Cholecalciferol (Vitamin D3) 25 Mcg Tablet) 50 mcg PO DAILY [facility] Last Admin: 04/26/24 08:29 Dose: 50 mcg Allergies Allergies Allergy/AdvReac Type Severity Reaction Status Date / Time egg [EGG] Allergy Intermediate VOMITING Verified 04/04/24 21:25 oxycodone [OXYCODONE] Allergy Intermediate NAUSEA/NIGH Verified 04/04/24 21:25 TMARES Penicillins [PCN] Allergy Intermediate RASH Verified 04/04/24 21:25 tramadol [TRAMADOL] Allergy Intermediate ITCHING Verified 04/04/24 21:25 acetaminophen [Percocet] Allergy Unknown none Verified 04/04/24 21:25 codeine Allergy Unknown nightmares Verified 04/04/24 21:25 Assessment & Plan Assessment & Plan (1) MDD (major depressive disorder), recurrent episode, moderate: Status: Acute Code(s): F33.1 - Major depressive disorder, recurrent, moderate Plan Ms. Higgins is a 58 year-old woman with long hx of depression, outpatient psychiatric treatment but no prior inpatient treatment who self presented [place] [facility] [place] increasing depression, passive suicidal ideation in context of feeling overwhelmed with caring for her two adopted teenager. We discussed risks, benefits and alternative treatment options. Pt reports shee worries about side effects of medications and at times does not take them consistently. She agreees to continue sertraline 100mg po daily. will hold wellbutrin as it may increase anxious mood and she does not take it regularly anyway. Continue buspar. 04/23 continue current treatment plan -added Biscodyl suppository for constipation 04/24 continue current treatment plan PLAN 1. Admit to S1, CV, 5 minutes checks for safety. 2. continue sertraline 100mg po daily 3. obtain collateral information 4. aftercare planning. 5. Increase Zoloft up to 150 mg p.o. q.a.m. starting on April 09. 6. Results from MRI did not show major changes. 7. Start bowel regimen due to constipation . 8. Start Cymbalta 20 mg p.o. daily on April 14 for anxiety, depression and neuropathic pain.. On April 14 we are increasing to 20 mg p.o. b.i.d. to target depression, anxiety and chronic pain. On April 15 we increase it up to 30 mg p.o. b.i.d. to target depression anxiety and chronic pain. On April 18 we are increasing Cymbalta to 30 mg in the morning and 60 at night. On April 19, we are increasing to Cymbalta 60 p.o. b.i.d. since there are no side-effects at this moment 9. Discontinue Wellbutrin XL. 10. Discharge tomorrow Reason for continued inpatient stay Substantial Risk for: inability to function, rapid decompensation and med/psych decompensation Time Spent With Patient Time: Total time managing care of this patient today _20___ minutes.
[2024-04-26 19:46] VITALS: BP 121/78; PULSE 74; RESP 16; TEMP 36.1; O2SAT 97
[2024-04-26] MEDS: Atorvastatin Calcium 40 MG TABLET PO (20:40)
[2024-04-26] MEDS: traZODone HCL 50 MG TABLET PO (20:41)
[2024-04-26] MEDS: Montelukast Sodium 10 MG TABLET PO (20:41)
[2024-04-26 20:49] LABS: Glucose, Whole Blood 176 mg/dL (60-115)
[2024-04-27] MEDS: Omeprazole 20 MG CAPSULE.DR PO (06:48)
[2024-04-27 06:53] LABS: Glucose, Whole Blood 141 mg/dL (60-115)
[2024-04-27 08:00] VITALS: BP 109/56; PULSE 72; RESP 18; TEMP 36.2; O2SAT 98
--- NOTE | 2024-04-27 08:05 | PM.PSYDC ---
DS: Providers Provider Date of Service: 04/27/24 Date of admission: 04/05/24 11:38 Date of discharge: 04/27/24 Primary care physician: Dwayne Stone MD Consults: 04/16/24 12:30 Consult to Hospitalist Routine Comment: recent UTI, finished antibx 04/14 Consulting Provider: Hospitalist Reason For Exam: c/u vaginal irritation/pruritis. RN notes erythem 04/20/24 13:25 Consult to Hospitalist Routine Comment: Consulting Provider: Hospitalist Reason For Exam: ear pain, R/O otitis Attending physician on discharge: Tyrone Ayala DS: Diagnosis Discharge Diagnosis (1) MDD (major depressive disorder), recurrent episode, moderate: Status: Acute DS: Medications Discharge Medications Home Medications: Home Medications ?Medication ?Instructions ?Recorded ?Confirmed aspirin 81 mg chewable tablet 1 tab PO DAILY 04/04/24 04/04/24 atorvastatin 40 mg tablet 40 mg PO BEDTIME 04/04/24 04/04/24 bupropion HCl 150 mg 24 hr tablet, 150 mg PO DAILY 04/04/24 04/04/24 extended release buspirone 10 mg tablet 10 mg PO BID anxiety 04/04/24 04/04/24 empagliflozin 25 mg tablet 25 mg PO QAM 04/04/24 04/04/24 (Jardiance) metformin 1,000 mg tablet 1,000 mg PO BID 04/04/24 04/04/24 montelukast 10 mg tablet 10 mg PO DAILY 04/04/24 04/04/24 sertraline 100 mg tablet 100 mg PO DAILY 04/04/24 04/04/24 Previous Rx's ?Medication ?Instructions ?Recorded omeprazole 20 mg capsule,delayed 20 mg PO DAILY 90 days #90 caps 04/15/21 release cholecalciferol (vitamin D3) 50 50 mcg PO DAILY #90 caps 06/10/23 mcg (2,000 unit) capsule (Vitamin D3) albuterol sulfate 90 mcg/actuation 2 puff inhalation Q6-8H PRN 03/04/24 aerosol inhaler shortness of breath or wheezing 90 days #3 inhalers Mental Status Exam Mental Status Exam Patient Appearance: Well Grooomed and Appropriate Patient Orientation: Person and Situation Level of Consciousness: Awake and Appropriate Patient Behavior: Appropriate and Passive Mood Description: Calm Affect Description: Constricted Patient Cognition Impaired: Yes Ability to Follow Directions: Good Speech Pattern: Clear Hallucinations: None Delusions: Not Present Thought Process: Linear and Slowed Thinking Thought Content: positive for Circumstantial Judgement: Fair Data Data Completed and Pending Completed studies during hospitalization [Text1]: 04/20/24 04/21/24 04/21/24 20:40 06:24 07:31 Creatinine 0.65 Estim Creat Clear Calc 104.8 Estimated GFR > 60 POC Glucose 138 H 153 H 04/21/24 04/22/24 04/22/24 19:46 06:32 19:41 Creatinine Estim Creat Clear Calc Estimated GFR POC Glucose 160 H 130 H 125 H 04/23/24 04/23/24 04/24/24 06:51 19:36 06:34 Creatinine Estim Creat Clear Calc Estimated GFR POC Glucose 134 H 172 H 131 H 04/24/24 04/25/24 04/25/24 20:02 06:33 20:58 Creatinine Estim Creat Clear Calc Estimated GFR POC Glucose 123 H 142 H 148 H 04/26/24 04/26/24 04/27/24 06:41 20:39 06:48 Creatinine Estim Creat Clear Calc Estimated GFR POC Glucose 122 H 176 H 141 H 04/04/24 Unknown Urine clean catch - Urine rivero top Urine Culture - Final No growth. Imaging Diagnostic Imaging Impressions Brain MRI 04/07/24 12:59 IMPRESSION: 1. No acute intracranial abnormalities. 2. Mild underlying microangiopathy. DS: Summary Hospital Course Hospital Course: The patient is a 58-year-old French female with a past history of major depressive disorder who was brought to the emergency room since she disclosed suicidal ideation in the context of several psychosocial stressors.? The patient has 2 teenage children who are adopted, several family conflicts and financial constraints.? She was assessed by crisis and transferring to this facility for psychiatric stabilization.? Please see the HPI of the admission note for further details.? On admission, we review her medications she was taking Zoloft 100 mg and Wellbutrin XL as augmentation.? The patient reports that the current treatment was not effective enough and she was having depressive symptoms elicited by depressed mood, anhedonia, lack of energy, feelings of hopelessness and increased anxiety.? We discussed risks, benefits, side-effects and alternatives and she agreed to increase Zoloft up to 150 mg 1 p.o. daily.? The patient did not have any side effects.? While she was in the unit we found out that she was severely anxious we discontinue Wellbutrin.? Also she complains of chronic pain, signs and symptoms of diabetic polyneuropathy.? In the past she was on Cymbalta with no side effects.? We start the titration of Cymbalta up to 60 mg p.o. b.i.d. with no side effects.? The patient was able to tolerate Zoloft and Cymbalta with no evidence of serotonergic symptoms. The patient's mood symptoms improved slowly, she was able to participate in groups and she was feeling a little better.? Her short-term memory was impaired.? Her [place] test was slightly low but her Keegan test was in range.? 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 At this moment we do not recommend to start Aricept or Namenda.? In the she should be reassessed wants her depressive symptoms were relieved.? But We had several family meetings and we found out the patient has several family conflicts, she has a young adult daughter who is very disruptive.? Her niece was willing to take her back for a few days so she can adapt.? Since there were no safety concerns discharge planning was discussed. Time spent discussing smoking cessation with patient: 3 to 10 minutes Status at Discharge Cognitive/behavioral status at discharge: Mildly impaired. Functional status at discharge: independent ambulation Overall status at discharge: patient is progressing back to baseline Time Spent with Patient Time attestation: Total time managing care of this patient today __30__ minutes. Time spent: Less than 30 minutes Discharge Plan Discharge Anticipated Discharge Date/Time: 04/27/24 09:00 Patient Disposition: Home, Self-Care Discharge Diagnosis: Major depressive disorder recurrent episode severe without psychosis Mild cognitive impairment. Referrals: [facility] [Other] - 06/13/24 12:20 pm (This medication appointment is telehealth and is scheduled for 06/13/24 at 12:20.) [facility] (Therapist) [Other] - 05/03/24 9:30 am (Your next appointment with your therapist Angélica Keith is scheduled for in office on 05/03/24 at 9:30. ) [facility] [Other] - 04/28/24 (Your critical care unit manager Gini Jennings and clinician Jerry Dominguez will be contacting you. Questions related to [employer] services and obtaining [employer] hours should be discussed with your critical care unit manager. Services with [facility] will resume once you are discharged from the hospital. For transportation to and from appointments please use CTS at [phone]) Dwayne Stone MD [Primary Care Provider] - 1 Week Discharge Medications: New mauopsdr-kknarizla-OJ 3.5-10,000-1 mg/mL-unit/mL-% Solution 4 drp otic (ear) right TID 30 Days Qty: 5 0RF sennosides [Senna Lax] 8.6 mg Tablet 8.6 mg PO BEDTIME 30 Days Qty: 30 0RF acetaminophen 325 mg Tablet 650 mg PO Q6H PRN (Reason: Headache/Pain Mild Scale (1-3)) 30 Days Qty: 60 0RF trazodone 50 mg Tablet 50 mg PO BEDTIME MRX1 PRN (Reason: Insomnia) 30 Days Qty: 60 0RF docusate sodium 100 mg Capsule 100 mg PO BID 30 Days Qty: 60 0RF clotrimazole 1 % Cream 1 appl topical BID 30 Days Qty: 5 0RF Protocol: Apply to: Apply to: sole both feet sertraline 50 mg Tablet 150 mg PO DAILY 30 Days Qty: 90 0RF duloxetine 60 mg Capsule,Delayed Release(Dr/Ec) 60 mg PO BID 30 Days Qty: 60 0RF Continued atorvastatin 40 mg tablet 40 mg PO BEDTIME 30 Days Qty: 30 0RF metformin 1,000 mg tablet 1,000 mg PO BID 30 Days Qty: 60 0RF omeprazole 20 mg capsule,delayed release(DR/EC) 20 mg PO DAILY 90 Days Qty: 90 3RF aspirin 81 mg tablet,chewable 1 tab PO DAILY 30 Days Qty: 30 0RF montelukast 10 mg tablet 10 mg PO DAILY 30 Days Qty: 30 0RF albuterol sulfate 90 mcg/actuation HFA aerosol inhaler 2 puff inhalation Q6-8H PRN (Reason: shortness of breath or wheezing) 90 Days Qty: 3 3RF cholecalciferol (vitamin D3) [Vitamin D3] 50 mcg (2,000 unit) capsule 50 mcg PO DAILY Qty: 90 1RF Jardiance 25 mg tablet 25 mg PO QAM 30 Days Qty: 30 0RF Discontinued sertraline 100 mg tablet 100 mg PO DAILY buspirone 10 mg tablet 10 mg PO BID bupropion HCl 150 mg tablet extended release 24 hr 150 mg PO DAILY Discharge Orders: Discharge Order (Routine); Ordered 04/27/24 Ordered By: Tyrone Ayala Diet: Advance to usual diet Activity on Discharge: As tolerated Stand Alone Forms: Patient Portal Discharge page Print Language: Chadian Care Plan Goals: Care plan goals achieved in this admission, suicidality had been resolved. Continue Health Concerns: Continue treatment with outpatient providers. Plan of Treatment: Continue psychiatric treatment as an outpatient. Assessment: Middle age French female with a past history of major depressive disorder who was brought into the facility for exacerbation of depression with suicidal ideation in the context of several family conflicts. We increase Zoloft to 150 mg, discontinue Wellbutrin due to anxiety and start Cymbalta titrated up to 60 mg p.o. b.i.d. to target anxiety depression and chronic pain. And the suicidality resolved and she was safe to be discharged to the community with aftercare.
[2024-04-27] MEDS: Cholecalciferol (Vitamin D3) 25 MCG TABLET 50 MCG PO (08:25)
[2024-04-27] MEDS: Empagliflozin 25 MG TABLET PO (08:25)
[2024-04-27] MEDS: DULoxetine HCl 60 MG CAPSULE.DR PO (08:25)
[2024-04-27] MEDS: metFORMIN HCl 1,000 MG TABLET 1000 MG PO (08:27)
[2024-04-27] MEDS: Sertraline HCL 50 MG TABLET 150 MG PO (08:27)
[2024-04-27] MEDS: Aspirin 81 MG TAB.CHEW PO (08:28)
[2024-04-27] MEDS: Docusate Sodium 100 MG CAPSULE PO (08:28)
[2024-04-27] MEDS: NeoMYCIN/Polymyxin/HC Otic Sol BOTTLE 4 DROP EAR-RIGHT (08:28)
[2024-04-27] MEDS: Clotrimazole 1 % Cream 15 GM TUBE 1 APPL TOPICAL (08:28)
--- NOTE | 2024-04-27 14:03 | PC.NURSE ---
Pt alert, oriented, reported readiness for discharge. D/C information, medications, f/u appointments given to the patient and her niece. Pt took her belongings. Left the unit at 13:45 accompanied by her niece.
== END 2024-04-27 13:45 | disposition home or self-care (01) | DRG 885 ==
LOC: HO.ED 23:50 → HO.PGERI 04-05 11:44
PROVIDERS: Physician Assistant; Admitting Provider Social Worker; Emergency Provider Internal Medicine; PCP Internal Medicine; Visit Provider Social Worker
DX: F33.1 Major depressive disorder, recurrent, moderate (principal); R45.851 Suicidal ideations; B36.1 Tinea nigra; K59.00 Constipation, unspecified; B37.31 Acute candidiasis of vulva and vagina; F41.9 Anxiety disorder, unspecified; G31.84 Mild cognitive impairment of uncertain or unknown etiology; Z79.82 Long term (current) use of aspirin; Z79.899 Other long term (current) drug therapy
CPT/HCPCS: 0352U; 36415; 70551; 80053; 80061; 80143; 80179; 80307; 81001; 82565; 82607; 82746; 82947; 83036; 83735; 84443; 85025; 87086; 93005; 99285; S9485

== ENCOUNTER → 2024-04-05 08:48 | Outpatient (BNV) | payer OTHER, SELFPAY | PROVIDERS: Admitting Provider Social Worker; Emergency Provider Internal Medicine; PCP Internal Medicine; Visit Provider Internal Medicine | DX: I45.81 Long QT syndrome (principal) | CPT/HCPCS: 93010 ==

== ENCOUNTER → 2024-04-05 11:38 | Outpatient (BNV) | payer OTHER, SELFPAY | PROVIDERS: Admitting Provider Social Worker; Emergency Provider Internal Medicine; PCP Internal Medicine; Visit Provider Psychiatry & Neurology Psychiatry | DX: F33.1 Major depressive disorder, recurrent, moderate (principal) | CPT/HCPCS: 90792; 99231; 99232; 99238 ==

== ENCOUNTER 2024-05-19 12:04 | Outpatient (AMB) | payer OTHER, SELFPAY ==
[2024-05-19 12:05] VITALS: BP 114/72; PULSE 72; O2SAT 98; BMI 34.8
--- NOTE | 2024-05-19 12:05 | MHC.PC.OV ---
Vital Signs 05/19/24 12:05 Height 5 ft 5 in Weight 209 lb 0.2 oz BMI 34.8 BP 114/72 Blood Pressure Location Lt brachial Position Sitting Pulse 72 Pulse Source Pulse Oximeter Pulse Oximetry (%) 98 Oxygen Delivery Method Room Air Intake Visit Reasons: DM, hyperlipidemia, HTN Intake Note: Patient is here to follow up on [symptoms]. Allergies egg [EGG] Allergy (Intermediate, Verified 05/19/24 12:47) VOMITING oxycodone [OXYCODONE] Allergy (Intermediate, Verified 05/19/24 12:47) NAUSEA/NIGHTMARES Penicillins [PCN] Allergy (Intermediate, Verified 05/19/24 12:47) RASH tramadol [TRAMADOL] Allergy (Intermediate, Verified 05/19/24 12:47) ITCHING acetaminophen [Percocet] Allergy (Unknown, Verified 05/19/24 12:47) none codeine Allergy (Unknown, Verified 05/19/24 12:47) nightmares Medication List - Last Reconciled 05/19/24 by Dwayne Stone MD acetaminophen 650 mg (2 x 325 mg) PO Q6H PRN 30 days albuterol sulfate 90 mcg/actuation 2 puffs inhalation Q6-8H PRN 90 days aspirin 1 tab PO DAILY 30 days atorvastatin 40 mg PO BEDTIME 30 days cholecalciferol (vitamin D3) (Vitamin D3) 50 mcg PO DAILY clotrimazole 1% 1 appl See Protocol topical BID 30 days docusate sodium 100 mg PO BID 30 days duloxetine 60 mg PO BID 30 days empagliflozin (Jardiance) 25 mg PO QAM 30 days metformin 1,000 mg PO BID 30 days montelukast 10 mg PO DAILY 30 days hdhmpgjw-llkkofcbg-JJ 3.5-10,000-1 mg/mL-unit/mL-% 4 drps otic (ear) right TID 30 days omeprazole 20 mg PO DAILY 90 days sennosides (Senna Lax) 8.6 mg PO BEDTIME 30 days sertraline 150 mg (3 x 50 mg) PO DAILY 30 days trazodone 50 mg PO BEDTIME MRX1 PRN 30 days Tobacco use date assessed: 02/10/24 Dental Screening Dental Screen Date: 02/10/24 HPI DM, hyperlipidemia, HTN HPI Details Patient comes in today for her follow up visit She is requesting for a referral to Podiatry as she has some painful corn /callus on the soles of both feet that she feels are getting worse lately She denies any headaches or dizziness Denies any chest pains, no shortness of breath No nausea /vomiting, no abdominal pain No change in bowel habits noted She needs a couple of her Rx refill She was not able to get her follow-up labs done prior to her visit today - states that she will try to get them done as soon as possible [facility] Medical History Primary osteoarthritis of left knee Constipation Contusion of left knee, sequela Muscle strain of right shoulder region Candidal intertrigo Meniere's disease Memory impairment Arthritis Fibromyalgia Diabetic acidosis, type I Obesity (BMI 30-39.9) Depression Anxiety Insomnia Iron deficiency Vitamin D deficiency Osteoarthrosis GERD without esophagitis Allergic rhinitis Pure hypercholesterolemia Diabetes mellitus Benign essential hypertension Fibromyalgia Asthma Obesity Dyslipidemia Hypertension snf (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 Diabetic nephropathy associated with type 2 diabetes mellitus Diabetes type 2, uncontrolled Surgical History Hx of hernia repair History of loop electrical excision procedure (LEEP) Family History Father Diabetes Mother No problems noted. Maternal Grandmother Breast cancer Social History Household Members: Family Housing: Apartment Do you presently have visiting nurse or other home services: No Alcohol intake: never Patient Tobacco Use Status: Never used Tobacco e-Cigarette/Vaping Use: Never Used Second Hand Smoke Exposure: Yes service: No Current occupational status: disabled Cognitive needs: Yes (cane) Hearing needs: No Vision needs: Yes (glasses) Female Reproductive History Menstrual Age of Menarche: 10 Questionnaire Thrive Questionnaire Date Thrive assessed: 04/06/24 AUDIT C Alcohol Use Questionnaire (AUDIT-C) 1. How often do you have a drink containing alcohol?: Never 3. How often do you have six or more drinks on one occasion?: Never Total Score: 0 Score Reviewed/Action Taken: Yes RACHAEL-7 AMB Questionnaire RACHAEL-7 Date RACHAEL - 7 assessed: 02/10/24 Source: Developed by Drs. Kory Jerez, Nina Minaya, Basilio Peterson and colleagues, with an educational sheldon from [employer]. Review of Systems Const Reports difficulty sleeping, Reports fatigue, Denies fever(s) and Denies headache(s) ENT Denies dysphagia, Denies dizziness, Denies otalgia, Denies headache(s), Denies neck pain, Denies odynophagia and Denies sore throat Card Denies chest pain, Denies rapid heart rate, Denies irregular heart rhythm, Denies palpitations and Denies dyspnea Resp Denies chest congestion, Denies cough, Denies dyspnea and Denies wheezing GI Denies abdominal pain, Denies constipation, Denies dysphagia, Denies heartburn, Denies diarrhea, Denies nausea, Denies odynophagia and Denies vomiting Denies hematuria, Denies dysuria, Denies urinary incontinence and Denies urinary urgency Musc Reports abnormal gait (unsteady), Reports back pain (over the lower back), Reports myalgias (diffuse), Reports arthralgias (multiple joints, especially over her left knee and around right shoulder) and Denies neck pain Skin/Breast Details: (+) painful corns on the soles of both feet Denies rash Neuro Reports abnormal gait (unsteady), Denies dizziness and Denies headache(s) Endo Reports fatigue and Denies palpitations Aller/Immun Denies wheezing Physical exam (Primary Care) Vital Signs: Last Vital Signs Pulse 72 05/19/24 12:05 BP 114/72 05/19/24 12:05 Pulse Ox 98 05/19/24 12:05 Oxygen Delivery Method Room Air 05/19/24 12:05 BMI result Body Mass Index 34.8 Tobacco/Smoking Status: Tobacco use Status Tobacco use date assessed 02/10/24 05/19/24 12:13 Patient Tobacco Use Status Never used Tobacco 05/19/24 12:13 e-Cigarette/Vaping Use Never Used 05/19/24 12:13 Thrive Assessment: Date of Thrive Assessment Date Thrive assessed 04/06/24 05/19/24 12:13 Const General: no acute distress and alert HENMT Ears: TM's normal bilaterally and EAC's normal Throat: Yes posterior oropharynx normal and Yes tonsils normal (no TP congestion noted) Neck Neck: Yes no lymphadenopathy and Yes supple Thyroid: Thyroid normal Resp Auscultation: clear to auscultation bilaterally, no rales and no wheezes Cardio Rate: regular rate Rhythm: regular rhythm Heart sounds: no murmurs GI Palpation (GI): Soft to palpation and nontender Auscultation: normal bowel sounds General: Yes no CVA tenderness Back/Spine/Pelvis Back: no CVA tenderness Thoracic/Lumbar Spine: paraspinal muscle tenderness bilaterally in the lower thoracic, in the upper lumbar, in the mid lumbar and in the lower lumbar and lumbar spinal tenderness Skin Rashes: no rashes Extrem Other: (+) tender thickened calluses noted over the soles of both feet General: Yes no clubbing, cyanosis or edema Right upper extremity: shoulder/upper arm Details: tenderness Location: of the A-C joint and of the scapula; no swelling Left upper extremity: elbow/forearm Details: tenderness; no swelling Right lower extremity: knee Details: tenderness Results AMB Hemoglobin A1c AMB Hemoglobin A1c 7.6 % Last Edit by ERIN Norman on 05/19/24 12:16 Results Reviewed Results Reviewed: Laboratory Last Values Hgb A1c (Clinic) 7.6 % (4.0-6.0) H 05/19/24 12:16 Laboratory Tests 04/04/24 04/06/24 04/21/24 22:19 08:07 07:31 WBC 10.0 Hgb 13.9 Hct 41.5 Plt Count 215 Sodium 141 Potassium 3.9 Creatinine 0.65 Estimated GFR > 60 Fasting Glucose 140 H Hgb A1c (Clinic) Hemoglobin A1c % 7.1 H AST 16 ALT 14 Triglycerides 113 Cholesterol 132 LDL Cholesterol, Calc 62 HDL Cholesterol 48 Vitamin B12 378 TSH 0.59 Ur Specific [place] >= 1.030 H Urine Protein Negative Urine Glucose (UA) >=1000 H Urine Blood Negative Urine Nitrite Negative Ur Leukocyte Esterase Negative 05/19/24 12:16 WBC Hgb Hct Plt Count Sodium Potassium Creatinine Estimated GFR Fasting Glucose Hgb A1c (Clinic) 7.6 H Hemoglobin A1c % AST ALT Triglycerides Cholesterol LDL Cholesterol, Calc HDL Cholesterol Vitamin B12 TSH Ur Specific [place] Urine Protein Urine Glucose (UA) Urine Blood Urine Nitrite Ur Leukocyte Esterase Assessment and Plan Assessment & Plan (1) Diabetes mellitus: Code(s): E11.9 - Type 2 diabetes mellitus without complications Qualifiers: Diabetes mellitus complication status: without complication Diabetes mellitus termite control representative insulin use: with termite control representative use Diabetes mellitus type: type 2 Qualified Code(s): E11.9 - Type 2 diabetes mellitus without complications; Z79.4 - termite control representative (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 Plan: Her in-office HgbA1c done today is at 7.6% - this has increased slightly from her previous HgbA1c of 7.1% in March 2024 - goal is HgbA1c of at least <7.0% Reinforced diabetic diet Continue Lantus Solostar 22 units subcutaneous once a day at bedtime, Metformin 1000 mg twice a day, Jardiance 25 mg QD and Januvia 100 mg QD She was seeing Dr. Otero for endocrinology follow-up and management of her diabetes but she has not seen him in a while - will refer her back to endocrinology Is also seeing estimator and drafter regularly for dietary counseling and teaching - to continue as scheduled (2) Pure hypercholesterolemia: Code(s): E78.00 - Pure hypercholesterolemia, unspecified Plan: Patient was not able to get her follow-up labs done prior to her visit today - states that she will try to get them done as soon as possible Reinforced low cholesterol diet Continue Atorvastatin 40 mg QD Will recheck her labs and fasting lipids in 3 months for follow-up (3) Benign essential hypertension: Code(s): I10 - Essential (primary) hypertension Plan: Reinforced low sodium diet - goal is systolic BP of at least 120 to 130 mm or less Continue Lisinopril 5 mg QD (4) Dizziness: Code(s): R42 - Dizziness and giddiness Plan: States that she still has occasional dizziness but this has been occurring much less often than before - (+) Hx of Meniere's disease Was seen by neurology in September 2022 and diagnosed with cerebellar ataxia MRI of the brain done in September 2022 revealed (+) scattered nonspecific white matter T2 hyperintensities in both cerebral hemispheres with no evidence for acute or subacute cerebral ischemia, hemorrhage, extra-axial fluid collection, space-occupying process, mass effect or hydrocephalus Follow up with neurology as scheduled (5) GERD without esophagitis: Code(s): K21.9 - Gastro-esophageal reflux disease without esophagitis Plan: Dietary restrictions reinforced Continue Omeprazole 20 mg QD (6) Osteoarthrosis: Code(s): M19.90 - Unspecified osteoarthritis, unspecified site Qualifiers: Osteoarthritis location: unspecified site Osteoarthritis type: primary Qualified Code(s): M19.91 - Primary osteoarthritis, unspecified site Plan: X-rays of both hands done a couple of years ago showed (+) mild OA changes in the right hand; left hand x-rays were normal except for an old metacarpal fracture that has since healed Follow-up with Orthopedics and Rheumatology as scheduled - she has been diagnosed with polyarthralgia by Rheumatology She is encouraged again on regular hand exercises to help minimize her hand stiffness and pain Continue Tramadol 50 mg TID PRN and Tylenol Arthritis 650 mg 3 times a day as needed, Piroxicam 10 mg once a day with food as needed and Diclofenac 1% topical Gel TID PRN (7) Primary osteoarthritis of left knee: Code(s): M17.12 - Unilateral primary osteoarthritis, left knee Plan: X-rays of the left knee done last year revealed (+) moderate degenerative changes Will consider orthopedic referral if her knee pain gets worse (8) Allergic rhinitis: Code(s): J30.9 - Allergic rhinitis, unspecified Qualifiers: Allergic rhinitis seasonality: unspecified Allergic rhinitis trigger: unspecified Qualified Code(s): J30.9 - Allergic rhinitis, unspecified Plan: Continue Montelukast 10 mg QD, Loratadine 10 mg QD PRN and Fluticasone 50 mcg nasal spray QD PRN (9) Vitamin D deficiency: Code(s): E55.9 - Vitamin D deficiency, unspecified Plan: Continue Vitamin D3 2000 units QD (10) Constipation: Code(s): K59.00 - Constipation, unspecified Qualifiers: Constipation type: unspecified constipation type Qualified Code(s): K59.00 - Constipation, unspecified Plan: Improved; reinforced increased oral fluids and dietary fiber Continue Senna 8.6 mg QD PRN (11) Fibromyalgia: Code(s): M79.7 - Fibromyalgia Plan: Encouraged again on regular exercise and physical activity to help manage her fibromyalgia symptoms Continue Duloxetine 60 mg once a day and Tizanidine 4 mg Q HS PRN Continue Pregabalin 50 mg BID - is tolerating Lyrica so far (was taken off Gabapentin previously as she was concerned that the medication was affecting her memory) (12) Buckeye or callus: Code(s): L84 - Corns and callosities Plan: Will refer her to podiatry for further evaluation and management (13) Frequent nocturnal awakening: Code(s): G47.00 - Insomnia, unspecified Plan: States that she has no trouble falling asleep, especially with her current sleep aids BUT still wakes up frequently in the middle of the night (multiple times and also sometimes on a daily basis) and finds herself gasping for air She has been referred to sleep medicine for further evaluation and management previously (possible issues with JENNIFER or at least, nocturnal hypoxemia) but she missed her appointment and has not yet been able to get this rescheduled (14) Insomnia: Code(s): G47.00 - Insomnia, unspecified Qualifiers: Insomnia type: unspecified Qualified Code(s): G47.00 - Insomnia, unspecified Plan: Sleep hygiene reinforced Continue Trazodone 50 mg Q HS PRN (15) Anxiety: Code(s): F41.9 - Anxiety disorder, unspecified Plan: Continue Lorazepam 0.5 mg Q HS PRN and Hydroxyzine 25 mg 3 times a day as needed (16) Depression: Code(s): F32.9 - Major depressive disorder, single episode, unspecified Qualifiers: Depression Type: unspecified Qualified Code(s): F32.9 - Major depressive disorder, single episode, unspecified Plan: Continue Bupropion ER 300 mg once a day Follow-up with Psychiatry as scheduled (17) Obesity (BMI 30-39.9): Code(s): E66.9 - Obesity, unspecified Plan: Reinforced diet/exercise as tolerated/lose weight Plan Follow up in 3 months Orders: Orders AMB Hemoglobin A1c 24 E11.65 - Type 2 diabetes mellitus with hyperglycemia Lipid Panel 3 Months E78.00 - Pure hypercholesterolemia, unspecified Comprehensive [place]. Panel Fast 3 Months E78.00 - Pure hypercholesterolemia, unspecified Microalbumin, Random (w Creat) 3 Months E11.9 - Type 2 diabetes mellitus without complications TSH reflex Free T4 3 Months E78.00 - Pure hypercholesterolemia, unspecified UA CC w/rflx Micro + Cult 3 Months R30.0 - Dysuria Vitamin D 25-OH Total 3 Months E55.9 - Vitamin D deficiency, unspecified Hemoglobin A1c 3 Months E11.9 - Type 2 diabetes mellitus without complications Complete Blood Count Auto Diff 3 Months D64.9 - Anemia, unspecified Vitamin B12 and Folate 3 Months E53.8 - Deficiency of other specified B group vitamins Referrals Endocrinology Referral E11.9 - Type 2 diabetes mellitus without complications, Z79.4 - snf (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 Podiatry Referral E11.9 - Type 2 diabetes mellitus without complications, L84 - Corns and callosities, Z79.4 - termite control representative (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 Medications: Refilled insulin glargine 22 units (0.22 mL) subcut DAILY 30 days 6.6 mL 6RF E11.65 - Type 2 diabetes mellitus with hyperglycemia lisinopril 5 mg PO DAILY 90 days 90 tabs 3RF E11.65 - Type 2 diabetes mellitus with hyperglycemia lisinopril 5 mg PO DAILY 90 days 90 tabs 3RF E11.65 - Type 2 diabetes mellitus with hyperglycemia insulin glargine 22 units (0.22 mL) subcut DAILY 30 days 6.6 mL 6RF E11.65 - Type 2 diabetes mellitus with hyperglycemia Coding Level of Care Code Est Pt Level 4 (85031) Complex EM visit Add On G2211 Diagnoses Type 2 diabetes mellitus without complication, with long-term current use of insulin E11.9; Z79.4 Diabetes mellitus complication status: without complication Diabetes mellitus termite control representative insulin use: with care home use Diabetes mellitus type: type 2 Pure hypercholesterolemia E78.00 Benign essential hypertension I10 Dizziness R42 GERD without esophagitis K21.9 Primary osteoarthritis, unspecified site M19.91 Osteoarthritis location: unspecified site Osteoarthritis type: primary Primary osteoarthritis of left knee M17.12 Allergic rhinitis, unspecified seasonality, unspecified trigger J30.9 Allergic rhinitis seasonality: unspecified Allergic rhinitis trigger: unspecified Vitamin D deficiency E55.9 Constipation, unspecified constipation type K59.00 Constipation type: unspecified constipation type Fibromyalgia M79.7 Buckeye or callus L84 Frequent nocturnal awakening G47.00 Insomnia, unspecified type G47.00 Insomnia type: unspecified Anxiety F41.9 Depression, unspecified depression type F32.9 Depression Type: unspecified Obesity (BMI 30-39.9) E66.9
== END 2024-05-19 12:58 | disposition home or self-care (01) ==
LOC: HO.HMGH 12:04
PROVIDERS: PCP Internal Medicine; Visit Provider Internal Medicine
DX: E11.9 Type 2 diabetes mellitus without complications (principal); Z79.4 Long term (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; E78.00 Pure hypercholesterolemia, unspecified; I10 Essential (primary) hypertension; R42 Dizziness and giddiness; K21.9 Gastro-esophageal reflux disease without esophagitis; M19.91 Primary osteoarthritis, unspecified site; M17.12 Unilateral primary osteoarthritis, left knee; J30.9 Allergic rhinitis, unspecified; E55.9 Vitamin D deficiency, unspecified; K59.00 Constipation, unspecified; M79.7 Fibromyalgia; L84 Corns and callosities; G47.00 Insomnia, unspecified; F41.9 Anxiety disorder, unspecified; F32.9 Major depressive disorder, single episode, unspecified; E66.9 Obesity, unspecified
CPT/HCPCS: 83036; 99214; G2211

== ENCOUNTER 2024-05-25 12:52 | Outpatient (AMB) | payer OTHER, SELFPAY ==
--- NOTE | 2024-05-25 12:59 | A.OFFVIS_ITS ---
Vital Signs 05/25/24 13:04 Height 5 ft 5 in Weight 209 lb 7.026 oz BMI 34.8 BP 126/78 Blood Pressure Location Rt brachial Position Sitting Pulse 70 Pulse Source Pulse Oximeter Intake Visit Reasons: Type 2 DM-confirmed Intake Note: New Patient presents today to establish treatment for Type 2 Diabetes Mellitus: Last Diabetic Eye exam: 02/2024 Last Podiatry Exam: DUE Most recent HbA1c: 7.6%, 05/19/2024 Random Glucose- 111 mg/dL, Today Director College Required: Yes Director College Language: Linux Kernel Developer Services: Director College Present Director College Name: ERIN Trveizo/СВЕТЛАНА Zuleta Information Interpreted: non-clinical & clinical Accompanied by: Self / Same As Patient Allergies egg [EGG] Allergy (Intermediate, Verified 05/25/24 13:00) VOMITING oxycodone [OXYCODONE] Allergy (Intermediate, Verified 05/25/24 13:00) NAUSEA/NIGHTMARES Penicillins [PCN] Allergy (Intermediate, Verified 05/25/24 13:00) RASH tramadol [TRAMADOL] Allergy (Intermediate, Verified 05/25/24 13:00) ITCHING acetaminophen [Percocet] Allergy (Unknown, Verified 05/25/24 13:00) none codeine Allergy (Unknown, Verified 05/25/24 13:00) nightmares HPI Comments Details: Patient is 58-year-old female with DM type 2 diagnosed in 1996 who presents for management of diabetes. Past medical history: Diabetes type 2, hypertension, hyperlipidemia, asthma, GERD, anxiety, depression., fibromyalgia, arthritis Micro and macrovascular complications: Nephropathy Her daughter functions as an student assistant today with patient's consent. Diabetes medications: Metformin 1000 mg twice a day , Jardiance 25 mg, ran out of Mounjaro 5 mg Qwkly, Lantus 22 units at bedtime. Intolerant of Trulicity and Ozempic due to gastric upset and pain. She had stopped taking her medication about a month ago because she was depressed. She is seeing someone for this and is now living out of her house and at her niece's and is taking much better care of herself. She is taking all of her medication with the exception of Mounjaro which she ran out of. She no longer has a free style [employer] reader and does not want to link to her phone. Symptoms reported: + numbness, no cramping in lower extremities. C/o vaginal yeast infection. She is seeing her PCP about this. 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 see a supervisor process testing for nail care Ophthalmology evaluation:03/02 -no retinopathy Other specialists: denies [facility] Medical History Primary osteoarthritis of left knee Constipation Contusion of left knee, sequela Muscle strain of right shoulder region Candidal intertrigo Meniere's disease Memory impairment Arthritis Fibromyalgia Diabetic acidosis, type I Obesity (BMI 30-39.9) Depression Anxiety Insomnia Iron deficiency Vitamin D deficiency Osteoarthrosis GERD without esophagitis Allergic rhinitis Pure hypercholesterolemia Diabetes mellitus Benign essential hypertension Fibromyalgia Asthma Obesity Dyslipidemia Hypertension senior living (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 Diabetic nephropathy associated with type 2 diabetes mellitus Diabetes type 2, uncontrolled Surgical History Hx of hernia repair History of loop electrical excision procedure (LEEP) Family History Father Diabetes Mother No problems noted. Maternal Grandmother Breast cancer Social History Household Members: Family Housing: Apartment Do you presently have visiting nurse or other home services: No Alcohol intake: never Patient Tobacco Use Status: Never used Tobacco e-Cigarette/Vaping Use: Never Used Second Hand Smoke Exposure: Yes service: No Current occupational status: disabled Cognitive needs: Yes (cane) Hearing needs: No Vision needs: Yes (glasses) Female Reproductive History Menstrual Age of Menarche: 10 Physical Exam Vital Signs: Last Vital Signs Pulse 70 05/25/24 13:04 BP 126/78 05/25/24 13:04 BMI result Body Mass Index 34.8 Const General: cooperative and healthy appearing Neck Neck: Yes normal visual inspection Thyroid: Thyroid normal Resp Effort & Inspection: normal respiratory effort Auscultation: clear to auscultation bilaterally Cardio Jugular venous distension: no JVD Rate: regular rate Rhythm: regular rhythm Heart sounds: S1 normal heart sound present and S2 normal heart sound present Extrem Other: Visual exam of foot performed. No ulcerations or open lesions. No onchomycosis, no callouses. Sensation intact to monofilament exam. Vibratory sensation is normal with 128 Hz tuning fork. Results Reviewed Results Reviewed: Laboratory Last Values Glucose (Clinic) 111 mg/dL (60-115) 05/25/24 13:10 Laboratory Tests 04/06/24 04/21/24 05/19/24 08:07 07:31 12:16 Potassium 3.9 BUN 13 Creatinine 0.75 0.65 Estim Creat Clear Calc 91.2 104.8 Estimated GFR > 60 > 60 Hgb A1c (Clinic) 7.6 H AST 16 ALT 14 Alkaline Phosphatase 101 Albumin 4.3 Assessment & Plan Assessment & Plan (1) Diabetes mellitus: Code(s): E11.9 - Type 2 diabetes mellitus without complications Category: Medical Qualifiers: Diabetes mellitus type: type 2 Diabetes mellitus intermediate insulin use: with intermediate use Diabetes mellitus complication status: without complication Qualified Code(s): E11.9 - Type 2 diabetes mellitus without complications; Z79.4 - senior living (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 Plan: A1C 7.6%. She had stopped insulin when she was depressed but is now taking it. I will send a prescription for Mounjaro and a [employer] Everett 3 reader and she will return to clinic so that it this can be set up. After that she will return in 1 month to review sensor readings. She will need a meter sent off also to validate readings if her they are less than 70. I will refer to Podiatry. She does report that she has a white pruritic vaginal discharge. She is seeing her PCP about this. I advised her that this could be related to Jardiance and then upon treatment if she continues to get these infections we would need to stop the Jardiance. She was also counseled on potential UTI and how to handle this problem. Patient teaching: The patient was counseled to always carry a source of sugar and on the rule of 15's: Take 3 glucose tablets and repeat again in 15 minutes if blood sugar is not in normal range. Continue to repeat every 15 minutes until blood sugar is normal. The patient was counseled to achieve a target A1C of 7% (154 avg). Fasting blood sugars should be 90-130 in the morning and less than 180 two hours after meals. Reviewed the relationship between poor diabetic control and the developement of complications Orders: Referrals Podiatry Referral E11.9 - Type 2 diabetes mellitus without complications, Z79.4 - dry cell sealer (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 Medications: New tirzepatide (Mounjaro) 5 mg (0.5 mL) subcut QWEEK 28 days 2 mL 11RF E11.9 - Type 2 diabetes mellitus without complications, Z79.4 - dry cell sealer (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 blood-glucose meter (FreeStyle Keystone Lite kit) As directed 1 ea 1RF E11.9 - Type 2 diabetes mellitus without complications, Z79.4 - senior living (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 blood-glucose meter,continuous (FreeStyle [place] 3 [place]) As directed 1 ea 0RF E11.65 - Type 2 diabetes mellitus with hyperglycemia blood-glucose sensor (FreeStyle Everett 3 Sensor device) As directed 2 ea 11RF blood sugar diagnostic (FreeStyle Test strips) As directed free style lite 50 ea 6RF E11.9 - Type 2 diabetes mellitus without complications, Z79.4 - senior living (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 Coding Level of Care Code Est Pt Level 5 (61461) Complex EM visit Add On G2211 Diagnoses Type 2 diabetes mellitus without complication, with long-term current use of insulin E11.9; Z79.4 Diabetes mellitus type: type 2 Diabetes mellitus intermediate insulin use: with intermediate use Diabetes mellitus complication status: without complication Time Spent (min) 60 Comment Time spent reviewing labs/previous provider notes, face to face, chart documentation
[2024-05-25 13:04] VITALS: BP 126/78; PULSE 70; BMI 34.8
[2024-05-25 13:14] LABS: Glucose, Whole Blood 111 mg/dL (60-115)
== END 2024-05-25 13:49 | disposition home or self-care (01) ==
PROVIDERS: PCP Internal Medicine; Visit Provider Nurse Practitioner Adult Health
DX: E11.9 Type 2 diabetes mellitus without complications (principal); Z79.4 Long term (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
CPT/HCPCS: 99215; G2211; G2212

== ENCOUNTER → 2024-05-25 12:52 | Outpatient (BNVA) | payer OTHER, SELFPAY | PROVIDERS: PCP Internal Medicine; Visit Provider Nurse Practitioner Adult Health | DX: E11.9 Type 2 diabetes mellitus without complications (principal); Z79.4 Long term (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 | CPT/HCPCS: 82947; 99212 ==

== ENCOUNTER 2024-06-03 14:18 | Outpatient (AMB) | payer OTHER, SELFPAY ==
[2024-06-03 14:21] VITALS: BP 118/66; PULSE 72; BMI 35.4
--- NOTE | 2024-06-03 14:21 | A.OFFVIS_ITS ---
Vital Signs 06/03/24 14:21 Height 5 ft 5 in Weight 212 lb 11.937 oz BMI 35.4 BP 118/66 Blood Pressure Location Lt brachial Position Sitting Pulse 72 Pulse Source Pulse Oximeter Intake Visit Reasons: T2DM/LVM Intake Note: Patient presents today 1 week follow-up on Diabetes Mellitus Type 2: Last Diabetic Eye exam: 02/2024 Last Podiatry Exam: Doesn't have one Most recent HbA1c: 7.6%, 05/19/2024 Random Glucose- 119 mg/dL, Today Bowl Topper Required: Yes Bowl Topper Language: Petroleum Geology Faculty Member Services: Bowl Topper Present Information Interpreted: non-clinical & clinical Accompanied by: Self / Same As Patient Allergies egg [EGG] Allergy (Intermediate, Verified 06/03/24 14:28) VOMITING oxycodone [OXYCODONE] Allergy (Intermediate, Verified 06/03/24 14:28) NAUSEA/NIGHTMARES Penicillins [PCN] Allergy (Intermediate, Verified 06/03/24 14:28) RASH tramadol [TRAMADOL] Allergy (Intermediate, Verified 06/03/24 14:28) ITCHING acetaminophen [Percocet] Allergy (Unknown, Verified 06/03/24 14:28) none codeine Allergy (Unknown, Verified 06/03/24 14:28) nightmares HPI Comments Details: Patient is 58-year-old female with DM type 2 diagnosed in 1996 who presents for management of diabetes. She was last seen several weeks ago and had stopped taking her medication for a while because of depression. She has been taking her medications with the exception of Mounjaro which he had not yet received from pharmacy. I confirmed with her [facility] that [facility] order and that would be filled early next week. She is started on a freestyle Everett 2 at her last visit. Micro and macrovascular complications: Nephropathy Diabetes medications: Metformin 1000 mg twice a day , Jardiance 25 mg, Mounjaro 5 mg Qwkly, Lantus 22 units at bedtime. Intolerant of Trulicity and Ozempic due to gastric upset and pain. Symptoms reported: + numbness, no cramping in lower extremities. 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 Lovelace at her last visit and she has not yet been contacted. She was given the contact information for Dr. Lovelace but advised that she needs to it sure that she had a referral for this. Ophthalmology evaluation:03/02 -no retinopathy Other specialists: denies [facility] Medical History Primary osteoarthritis of left knee Constipation Contusion of left knee, sequela Muscle strain of right shoulder region Candidal intertrigo Meniere's disease Memory impairment Arthritis Fibromyalgia Diabetic acidosis, type I Obesity (BMI 30-39.9) Depression Anxiety Insomnia Iron deficiency Vitamin D deficiency Osteoarthrosis GERD without esophagitis Allergic rhinitis Pure hypercholesterolemia Diabetes mellitus Benign essential hypertension Fibromyalgia Asthma Obesity Dyslipidemia Hypertension 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 Maternal Grandmother Breast cancer Social History Household Members: Family Housing: Apartment Do you presently have visiting nurse or other home services: No Alcohol intake: never Patient Tobacco Use Status: Never used Tobacco e-Cigarette/Vaping Use: Never Used Second Hand Smoke Exposure: Yes service: No Current occupational status: disabled Cognitive needs: Yes (cane) Hearing needs: No Vision needs: Yes (glasses) Female Reproductive History Menstrual Age of Menarche: 10 Physical Exam Vital Signs: Last Vital Signs Pulse 72 06/03/24 14:21 BP 118/66 06/03/24 14:21 BMI result Body Mass Index 35.4 Const General: cooperative and healthy appearing Orientation/consciousness: oriented to person Limitations: no limitations Neck Neck: Yes normal visual inspection Resp Effort & Inspection: normal respiratory effort Neuro General: oriented to person Extrem Other: no edema or open lesions Assessment & Plan Assessment & Plan (1) Diabetes type 2, uncontrolled: Code(s): E11.65 - Type 2 diabetes mellitus with hyperglycemia Category: Medical Plan: Continue all current medications. When she is starts Mounjaro she is to decrease Lantus to 10 units. If she has any lows after starting she can discontinue the Lantus Coding Level of Care Code Est Pt Level 4 (77837) Complex EM visit Add On G2211 Diagnoses Diabetes type 2, uncontrolled E11.65 Time Spent (min) 30 Comment Time spent reviewing previous provider notes, face to face, chart documentation
[2024-06-03 14:36] LABS: Glucose, Whole Blood 119 mg/dL (60-115)
== END 2024-06-03 14:52 | disposition home or self-care (01) ==
PROVIDERS: PCP Internal Medicine; Visit Provider Nurse Practitioner Adult Health
DX: E11.65 Type 2 diabetes mellitus with hyperglycemia (principal)
CPT/HCPCS: 99214; G2211

== ENCOUNTER → 2024-06-03 14:18 | Outpatient (BNVA) | payer OTHER, SELFPAY | PROVIDERS: PCP Internal Medicine; Visit Provider Nurse Practitioner Adult Health | DX: E11.65 Type 2 diabetes mellitus with hyperglycemia (principal); E11.21 Type 2 diabetes mellitus with diabetic nephropathy; Z79.4 Long term (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 | CPT/HCPCS: 82947; 99212 ==

== ENCOUNTER 2024-06-15 13:10 | Outpatient (REF) | payer OTHER, SELFPAY ==
--- NOTE | ~2024-06-15 | MM_ITS ---
EXAMINATION: MM SCREENING DIGITAL BREAST TOMOSYNTHESIS, BILATERAL CLINICAL INFORMATION: Screening. Asymptomatic. COMPARISON: Mammography: This study is compared with prior exams dating back to 2018. TECHNIQUE: Digital breast tomosynthesis is performed in both the craniocaudal and mediolateral oblique views along with computer-aided detection (CAD). Synthesized 2D images are generated from the tomosynthesis. FINDINGS: The breasts are almost entirely fatty (ACR BI-RADS breast composition Category a). There are no significant masses, abnormal calcifications, or other abnormalities. MM/MM tomosynthesis screening BI IMPRESSION: No mammographic evidence of malignancy. ASSESSMENT: BI-RADS BI-RADS 1 - Negative RECOMMENDATION: Routine annual mammography screening. 1 year F/U This examination should not preclude the clinical evaluation of a suspicious palpable abnormality. This patient's information was entered into a reminder system with a target due date for their next mammogram. Electronically signed by: Jazmin Callahan MD 07/12/2024 07:37 AM EDT
== END 2024-06-15 13:11 | disposition home or self-care (01) ==
LOC: HO.MAMMO 13:10
PROVIDERS: PCP Internal Medicine; Visit Provider Internal Medicine
DX: Z12.31 Encounter for screening mammogram for malignant neoplasm of breast (principal)
CPT/HCPCS: 77063; 77067

== ENCOUNTER → 2024-06-15 13:30 | Outpatient (BNV) | payer OTHER, SELFPAY | PROVIDERS: PCP Internal Medicine; Visit Provider Radiology Diagnostic Radiology | DX: Z12.31 Encounter for screening mammogram for malignant neoplasm of breast (principal) | CPT/HCPCS: 77063; 77067 ==

== ENCOUNTER 2024-07-06 09:32 | Outpatient (AMB) | payer OTHER, SELFPAY ==
--- NOTE | 2024-07-06 09:36 | AM.OFFWIN_ITS ---
Intake Vital Signs 07/06/24 09:38 Weight 196 lb BP 120/70 Blood Pressure Location Rt brachial Position Sitting Pulse 66 Pulse Source Pulse Oximeter Pulse Oximetry (%) 97 Oxygen Delivery Method Room Air Intake Visit Reasons: EP- bottom RT foot pinching feeling Intake Note: Patient here because she stepped on a screw in her basement and is now very painful and is a diabetic. she is unsure of when her tdap was. Tdap:2019 Patient Tobacco Use Status: Never used Tobacco Allergies egg [EGG] Allergy (Intermediate, Verified 07/06/24 09:39) VOMITING oxycodone [OXYCODONE] Allergy (Intermediate, Verified 07/06/24 09:39) NAUSEA/NIGHTMARES Penicillins [PCN] Allergy (Intermediate, Verified 07/06/24 09:39) RASH tramadol [TRAMADOL] Allergy (Intermediate, Verified 07/06/24 09:39) ITCHING acetaminophen [Percocet] Allergy (Unknown, Verified 07/06/24 09:39) none codeine Allergy (Unknown, Verified 07/06/24 09:39) nightmares Do you need a note to return to daycare/school/sports/work: No HPI HPI Comments History of Present Illness Details Patient is a 58-year-old female complaining of stepping on something sharp with her left foot 4 days ago. She states she thinks it was some fishing equipment, she states she pulled the entire hook out, intact. she is not sure when her last Tdap was. She states the area is very sore and tender to the touch. She denies any drainage from the area or redness. The pain is worse when she walks, better when she rests it. He is wondering if she needs an antibiotic. [facility] Medical History Primary osteoarthritis of left knee Constipation Contusion of left knee, sequela Muscle strain of right shoulder region Candidal intertrigo Meniere's disease Memory impairment Arthritis Fibromyalgia Diabetic acidosis, type I Obesity (BMI 30-39.9) Depression Anxiety Insomnia Iron deficiency Vitamin D deficiency Osteoarthrosis GERD without esophagitis Allergic rhinitis Pure hypercholesterolemia Diabetes mellitus Benign essential hypertension Fibromyalgia Asthma Obesity Dyslipidemia Hypertension USP (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 Diabetic nephropathy associated with type 2 diabetes mellitus Diabetes type 2, uncontrolled Surgical History Hx of hernia repair History of loop electrical excision procedure (LEEP) Family History Father Diabetes Mother No problems noted. Maternal Grandmother Breast cancer Social History Household Members: Family Housing: Apartment Do you presently have visiting nurse or other home services: No Alcohol intake: never Patient Tobacco Use Status: Never used Tobacco e-Cigarette/Vaping Use: Never Used Second Hand Smoke Exposure: Yes service: No Current occupational status: disabled Cognitive needs: Yes (cane) Hearing needs: No Vision needs: Yes (glasses) Female Reproductive History Menstrual Age of Menarche: 10 Review of Systems Const All systems reviewed & are unremarkable except as noted in HPI and below Physical Exam Vital Signs: Last Vital Signs Pulse 66 07/06/24 09:38 BP 120/70 07/06/24 09:38 Pulse Ox 97 07/06/24 09:38 Oxygen Delivery Method Room Air 07/06/24 09:38 Const General: cooperative, healthy appearing, comfortable, no acute distress and well developed Orientation/consciousness: patient oriented x3 Limitations: no limitations Skin Other: Left foot, plantar surface has pinpoint black area midfoot, tender to palpation. No evidence of any foreign body retained. No warmth or drainage noted; no ecchymosis. Neuro General: patient oriented x3 Assessment & Plan Assessment & Plan (1) Puncture wound: Code(s): T14.8XXA - Other injury of unspecified body region, initial encounter Plan: Gave patient Tdap in office, sent antibiotic prophylaxis for plantar puncture wo und. Plan See above Orders: Orders TDaP Immunization Today T14.8XXA - Other injury of unspecified body region, initial encounter Medications: New levofloxacin 750 mg PO DAILY 3 tabs 0RF Coding Level of Care Code Est Pt Level 3 (09447) Diagnoses Puncture wound T14.8XXA
[2024-07-06 09:38] VITALS: BP 120/70; PULSE 66; O2SAT 97
== END 2024-07-06 10:13 | disposition home or self-care (01) ==
PROVIDERS: PCP Internal Medicine; Visit Provider Physician Assistant
DX: S91.332A Puncture wound without foreign body, left foot, initial encounter (principal); T14.8XXA Other injury of unspecified body region, initial encounter
CPT/HCPCS: 90471; 90715; 99213

== ENCOUNTER 2024-07-15 12:54 | Outpatient (AMB) | payer OTHER, SELFPAY ==
--- NOTE | 2024-07-15 10:50 | A.OFFVIS_ITS ---
Vital Signs 07/15/24 12:58 Height 5 ft 5 in Weight 213 lb 13.574 oz BMI 35.6 BP 120/66 Blood Pressure Location Rt brachial Position Sitting Pulse 86 Pulse Source Pulse Oximeter Intake Visit Reasons: T2DM Intake Note: Patient presents today for a follow-up for Diabetes Mellitus Type 2: Last Diabetic Eye exam: 02/2024 Last Podiatry Exam: Does not see a Block Sorter Most recent HbA1c: 7.6%, 05/19/2024 Random Glucose- 144mg/dL, Today Animal Sticker Required: Yes Animal Sticker Services: Animal Sticker Present Animal Sticker Name: ERIN Trevizo/[email or web address] LAUREN Accompanied by: Self / Same As Patient Allergies egg [EGG] Allergy (Intermediate, Verified 07/15/24 12:59) VOMITING oxycodone [OXYCODONE] Allergy (Intermediate, Verified 07/15/24 12:59) NAUSEA/NIGHTMARES Penicillins [PCN] Allergy (Intermediate, Verified 07/15/24 12:59) RASH tramadol [TRAMADOL] Allergy (Intermediate, Verified 07/15/24 12:59) ITCHING acetaminophen [Percocet] Allergy (Unknown, Verified 07/15/24 12:59) none codeine Allergy (Unknown, Verified 07/15/24 12:59) nightmares HPI Comments Details: Patient is 58-year-old female with DM type 2 diagnosed in 1996 who presents for management of diabetes. She was last seen06/03/24. Prior to that visit she had not been taking her medications except Mounjaro. She was started on a freestyle Everett 2 in May. Intolerant of Trulicity and Ozempic due to gastric upset and pain. Diabetes medications: Metformin 1000 mg twice a day Jardiance 25 mg Mounjaro 5 mg Qwkly Lantus 10 units at bedtime Freestyle everett sensor 3 average glucose: 133 14 day continuous glucose sensor report reviewed Glucose Management indicator [6.5 ] % Time CGM active 97 % TIme in ranges: 0 % very high (above 250) 6 % high (181-250) 94 % in range (70-180] 0 % low (69-55) 0 % very low (below 54) 20.3 Glucose variability [ ] (target <36%) Interpretation of CGMS [excellent glycemic control with no lows throughout 24 hours for 14 days ] Micro and macrovascular complications: Nephropathy: microalbumin 36 eGFR >60 Podiatry: He is on waiting list for [facility] Neuropathy: Numbness + no cramping in lower extremeties Ophthalmology evaluation:03/02 -no retinopathy 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 Prior Imaging [08/[address]] LIVER, GALLBLADDER, AND BILIARY TREE: The liver is normal in size, shape, and attenuation. There is a small calcification in the left lobe of the liver. No other focal hepatic lesion or biliary ductal dilatation is present. The gallbladder is unremarkable with no evidence of radiopaque gallstones, gallbladder wall thickening, or obvious pericholecystic inflammatory changes. Action Plan: [] rescreen two years from date of screening labs[04/03] [facility] Medical History Primary osteoarthritis of left knee Constipation Contusion of left knee, sequela Muscle strain of right shoulder region Candidal intertrigo Meniere's disease Memory impairment Arthritis Fibromyalgia Diabetic acidosis, type I Obesity (BMI 30-39.9) Depression Anxiety Insomnia Iron deficiency Vitamin D deficiency Osteoarthrosis GERD without esophagitis Allergic rhinitis Pure hypercholesterolemia Diabetes mellitus Benign essential hypertension Fibromyalgia Asthma Obesity Dyslipidemia Hypertension intermediate (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 Diabetic nephropathy associated with type 2 diabetes mellitus Diabetes type 2, uncontrolled Surgical History Hx of hernia repair History of loop electrical excision procedure (LEEP) Family History Father Diabetes Mother No problems noted. Maternal Grandmother Breast cancer Social History Household Members: Family Housing: Apartment Do you presently have visiting nurse or other home services: No Alcohol intake: never Patient Tobacco Use Status: Never used Tobacco e-Cigarette/Vaping Use: Never Used Second Hand Smoke Exposure: Yes service: No Current occupational status: disabled Cognitive needs: Yes (cane) Hearing needs: No Vision needs: Yes (glasses) Female Reproductive History Menstrual Age of Menarche: 10 Physical Exam Vital Signs: Last Vital Signs Pulse 86 07/15/24 12:58 BP 120/66 07/15/24 12:58 BMI result Body Mass Index 35.6 Const Other: Absence of Cushingoid features. Absence of acromegalic features. Neck exam reveals nl size thyroid about 15 gms. No thyroid nodules palpable. Heart S1 S2, Reg R/R. No M/R G. Skin exam reveals absence of vitiligo or acanthosis nigricans. Extrem Other: Visual exam of foot performed. No ulcerations or open lesions. No interdigit maceration or fissuring. Mild onychomycosis on several nail beds, no callouses. Sensation diminished to monofilament exam right foot Vibratory sensation is normal with 128 Hz tuning fork. Results Reviewed Results Reviewed: Laboratory Last Values Glucose (Clinic) 144 mg/dL (60-115) H 07/15/24 13:03 Laboratory Tests 02/09/24 04/04/24 04/06/24 09:58 22:19 08:07 Plt Count 215 Creatinine Estim Creat Clear Calc Estimated GFR Hgb A1c (Clinic) AST 16 ALT 14 Urine Creatinine 225.85 Urine Microalbumin 36.0 Microalb/Creat Ratio 15.9 04/14/24 05/19/24 09:21 12:16 Plt Count Creatinine 0.75 Estim Creat Clear Calc 91.3 Estimated GFR > 60 Hgb A1c (Clinic) 7.6 H AST ALT Urine Creatinine Urine Microalbumin Microalb/Creat Ratio Assessment & Plan Assessment & Plan (1) Diabetes type 2, uncontrolled: Code(s): E11.65 - Type 2 diabetes mellitus with hyperglycemia Category: Medical Plan: 58-year-old type 2 diabetic with mild nephropathy and neuropathy currently under excellent control. She is now taking all her medications and using a freestyle Everett 3 which shows a glucose management indicator of 6.5%. She was encouraged to continue taking all of her medications with the exception of Lantus which she can stop and we will increase Mounjaro from 5 mg to 7.5 mg. If she stops the 10 units of Lantus in her sugars increased she can restart this. She is on a waiting list for podiatry at [facility]. I have ordered an ADITYA to rule out peripheral vascular disease, fib 4 screen is negative for fatty liver and she has a BNP ordered to rule out CHF per the [place] [employer] Standards of Care 2023. She will return in 6 months' time. Orders: Orders AMB Glucose Monitoring Today E11.9 - Type 2 diabetes mellitus without complications, Z79.4 - intermediate (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 B Type Natriuretic Peptide Today E11.9 - Type 2 diabetes mellitus without complications, Z79.4 - 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 US ADITYA complete Today E11.65 - Type 2 diabetes mellitus with hyperglycemia Medications: New tirzepatide (Mounjaro) 7.5 mg (0.5 mL) subcut QWEEK 28 days 2 mL 8RF E11.9 - Type 2 diabetes mellitus without complications, Z79.4 - 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 Discontinued tirzepatide (Mounjaro) Discontinued Reason: Doctor's Order 5 mg (0.5 mL) subcut QWEEK 28 days 2 mL 11RF E11.9 - Type 2 diabetes mellitus without complications, Z79.4 - 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 On Hold insulin glargine Hold Comment: Doctor's Order 22 units (0.22 mL) subcut DAILY 30 days 6.6 mL 6RF E11.65 - Type 2 diabetes mellitus with hyperglycemia Coding Level of Care Code Tele Est Pt Level 4 (86945) Complex EM visit Add On G2211 Diagnoses Diabetes type 2, uncontrolled E11.65 Time Spent (min) 30 Comment Time spent reviewing labs/provider notes, glucose,sensor reports, face to face, chart doc
[2024-07-15 12:58] VITALS: BP 120/66; PULSE 86; BMI 35.6
[2024-07-15 13:11] LABS: Glucose, Whole Blood 144 mg/dL (60-115)
== END 2024-07-15 13:25 | disposition home or self-care (01) ==
PROVIDERS: PCP Internal Medicine; Visit Provider Nurse Practitioner Adult Health
DX: E11.65 Type 2 diabetes mellitus with hyperglycemia (principal)
CPT/HCPCS: 99214; G2211

== ENCOUNTER → 2024-07-15 12:54 | Outpatient (BNVA) | payer OTHER, SELFPAY | PROVIDERS: PCP Internal Medicine; Visit Provider Nurse Practitioner Adult Health | DX: E11.65 Type 2 diabetes mellitus with hyperglycemia (principal); Z79.4 Long term (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 | CPT/HCPCS: 82947 ==

== ENCOUNTER 2024-08-10 09:28 | Outpatient (REF) | payer OTHER, SELFPAY ==
--- NOTE | ~2024-08-10 | US_ITS ---
EXAMINATION: NONINVASIVE ASSESSMENT OF THE ARTERIES OF BOTH LOWER EXTREMITIES INCLUDING PVR EXAM CLINICAL INFORMATION: Diabetes COMPARISON: None TECHNIQUE: Ankle pulse volume recordings, ankle pressure measurements and ankle brachial indices were obtained of the lower extremity arterial system bilaterally. The study was performed only at rest. FINDINGS: RIGHT LEG 1. Right Ankle-Brachial Index: 1.33 (higher of the DP/PT) >0.97-1.25 = normal - no significant arterial disease 0.75-0.96 = mild peripheral arterial disease 0.5-0.74 = moderate peripheral arterial disease <0.50 = severe peripheral arterial disease <0.30 = critical arterial disease 2. Segmental Pressures (mmHg): Brachial: 143 Ankle: PT 200, DP 167 3. PVR Waveforms: Ankle: Normal LEFT LE. Left Ankle-Brachial Index: 1.16 (higher of the DP/PT) >0.97-1.25 = normal - no significant arterial disease 0.75-0.96 = mild peripheral arterial disease 0.5-0.74 = moderate peripheral arterial disease <0.50 = severe peripheral arterial disease <0.30 = critical arterial disease 2. Segmental Pressures: Brachial: 150 Ankle: PT 174, DP 173 3. PVR Waveforms: Ankle: Normal US/US ADITYA complete IMPRESSION: Normal ABIs and PVR waveforms. Electronically signed by: Ron Sheth MD 08/11/2024 01:14 PM EDT
== END 2024-08-10 09:29 | disposition home or self-care (01) ==
LOC: HO.US 09:28
PROVIDERS: PCP Internal Medicine; Visit Provider Nurse Practitioner Adult Health
DX: Z13.6 Encounter for screening for cardiovascular disorders (principal); E11.65 Type 2 diabetes mellitus with hyperglycemia
CPT/HCPCS: 93923

== ENCOUNTER 2024-09-12 12:29 | Outpatient (REF) | payer OTHER, SELFPAY ==
[2024-09-12 13:05] LABS: MANUAL DIFF FLAG NO
[2024-09-12 14:06] LABS: Basophils Percent Auto 0.5 % (0-2); Eosinophils Absolute Auto 0.1 X10*3/uL (0.0-0.4); Eosinophils Percent Auto 1.7 % (0-4); Hematocrit 41.4 % (37.0-47.0); Hemoglobin 13.2 g/dl (12.0-16.0); Imm Gran Abs Auto 0.02 X10*3/uL (0.00-0.03); Imm Gran Pct Auto 0.2 % (0.0-0.4); Lymphocytes Absolute Auto 2.5 X10*3/uL (1.2-4.9); Lymphocytes Percent Auto 29.9 % (20-40); Mean Corpuscular HGB Conc 31.9 g/dl (31.0-35.0); Mean Corpuscular Hemoglobin 25.7 pg (27.0-33.0); Mean Corpuscular Volume 80.5 fL (80.0-98.0); Mean Platelet Volume 10.6 fL (9.4-12.3); Monocytes Absolute Auto 0.6 X10*3/uL (0.1-1.2); Monocytes Percent Auto 7.3 % (2-11); Neutrophils Percent Auto 60.4 % (45-73); Platelet Count 211 X10*3/uL (160-400); Red Blood Count 5.14 X10*6/uL (4.20-5.50); Red Cell Distribution Width 15.4 % (11.0-16.0); White Blood Count 8.3 X10*3/uL (4.8-10.8)
[2024-09-12 14:14] LABS: Appearance Urine Clear; Color Urine Yellow; Glucose Urine UA >=1000 mg/dL (Negative); Leukocyte Esterase Urine Negative (Negative); Nitrite Urine Negative (Negative); Specific Gravity - Urine >= 1.030 (1.005-1.025); UMIC TRIGGER UACC YES; Urine Blood Negative (Negative); Urine Ketones Negative (Negative); Urine Protein Negative (Neg-Trace)
[2024-09-12 14:21] LABS: Bacteria Urine None Seen (None Seen); Hyaline Casts Urine 0-2 /LPF (0-2); RBC Urine 0-2 /HPF (0-2); Squamous Epithelial Cell Urine 0-2 /HPF (0-2); WBC Urine 0-5 /HPF (0-5)
[2024-09-12 14:40] LABS: Estimated Average Glucose 134 mg/dL; Hemoglobin A1C 159.7816 umol/L; Hemoglobin A1c % 6.3 % (<6.0); Total Hemoglobin (HGBA1C) 3508.0224 umol/L
[2024-09-12 15:09] LABS: Creatinine Urine 101.11 mg/dL; Microalbum/Creatinine Ratio Ur 11.8 ug/mg cr (<30)
[2024-09-12 16:44] LABS: Alanine Aminotransferase 33 U/L (0-31); Albumin Level 4.3 g/dL (3.5-5.0); Alkaline Phosphatase 88 U/L (39-117); Anion Gap 14 (12-20); Aspartate Amino Transferase 31 U/L (5-31); Bilirubin Total 0.5 mg/dL (0.0-1.0); Blood Urea Nitrogen 18 mg/dL (9-16); Carbon Dioxide 25 mmol/L (22-29); Chloride 106 mmol/L (96-108); Cholesterol 141 mg/dL (<200); Estimated Glomerular Filt Rate > 60; Glucose Fasting 166 mg/dL (60-99); HDL Cholesterol 64 mg/dL (>40); LDL Cholesterol Calculated 51 mg/dL (<100); Sodium 141 mmol/L (135-145); Triglycerides 134 mg/dL (<150)
[2024-09-12 17:01] LABS: TSH reflex Free T4 1.94 uIU/mL (0.32-4.0); Vitamin D 25-OH Total 47.9 ng/mL (>30)
[2024-09-12 17:05] LABS: Folate 11.3 ng/mL (> or = 4.0); Vitamin B12 337 pg/mL (200-900)
== END 2024-09-12 12:30 | disposition home or self-care (01) ==
LOC: HO.LAB 12:29
PROVIDERS: PCP Internal Medicine; Visit Provider Internal Medicine
DX: E11.9 Type 2 diabetes mellitus without complications (principal); E78.00 Pure hypercholesterolemia, unspecified; E55.9 Vitamin D deficiency, unspecified; D64.9 Anemia, unspecified; E53.8 Deficiency of other specified B group vitamins; R30.0 Dysuria
CPT/HCPCS: 36415; 80053; 80061; 81001; 81003; 82043; 82306; 82570; 82607; 82746; 83036; 84443; 85025

== ENCOUNTER 2024-09-14 11:16 | Outpatient (AMB) | payer OTHER, SELFPAY ==
[2024-09-14 11:18] VITALS: BP 132/74; PULSE 82; O2SAT 96; BMI 33.6
--- NOTE | 2024-09-14 11:18 | A.OFFVIS_ITS ---
Vital Signs 09/14/24 11:18 Height 5 ft 5 in Weight 202 lb BMI 33.6 BP 132/74 Blood Pressure Location Rt brachial Position Sitting Pulse 82 Pulse Source Doppler Pulse Oximetry (%) 96 Oxygen Delivery Method Room Air Intake Visit Reasons: Asthma Allergies egg [EGG] Allergy (Intermediate, Verified 09/14/24 11:25) VOMITING oxycodone [OXYCODONE] Allergy (Intermediate, Verified 09/14/24 11:25) NAUSEA/NIGHTMARES Penicillins [PCN] Allergy (Intermediate, Verified 09/14/24 11:25) RASH tramadol [TRAMADOL] Allergy (Intermediate, Verified 09/14/24 11:25) ITCHING acetaminophen [Percocet] Allergy (Unknown, Verified 09/14/24 11:) none codeine Allergy (Unknown, Verified 09/14/24 11:25) nightmares HPI HPI Asthma: Details: 59-year-old lady, lifetime nonsmoker, followed for underlying asthma and environmental allergies. She has been using Breo and albuterol MDI with worsening control of his symptoms. She does have significant environmental allergies. She denies recent acute exacerbations. [facility] Medical History Primary osteoarthritis of left knee Constipation Contusion of left knee, sequela Muscle strain of right shoulder region Candidal intertrigo Meniere's disease Memory impairment Arthritis Fibromyalgia Diabetic acidosis, type I Obesity (BMI 30-39.9) Depression Anxiety Insomnia Iron deficiency Vitamin D deficiency Osteoarthrosis GERD without esophagitis Allergic rhinitis Pure hypercholesterolemia Diabetes mellitus Benign essential hypertension Fibromyalgia Asthma Obesity Dyslipidemia Hypertension longterm (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 Diabetic nephropathy associated with type 2 diabetes mellitus Diabetes type 2, uncontrolled Surgical History Hx of hernia repair History of loop electrical excision procedure (LEEP) Family History Father Diabetes Mother No problems noted. Maternal Grandmother Breast cancer Social History Household Members: Family Housing: Apartment Do you presently have visiting nurse or other home services: No Alcohol intake: never Patient Tobacco Use Status: Never used Tobacco e-Cigarette/Vaping Use: Never Used Second Hand Smoke Exposure: Yes service: No Current occupational status: disabled Cognitive needs: Yes (cane) Hearing needs: No Vision needs: Yes (glasses) Female Reproductive History Menstrual Age of Menarche: 10 Review of Systems Const Denies daytime sleepiness, Denies excessive sweating, Denies fatigue, Denies fever(s), Denies lethargy, Denies malaise, Denies night sweats, Denies snoring and Denies weight loss Eyes Denies blurry vision and Denies itchy eyes ENT Denies nasal congestion, Denies post nasal drip, Denies sinus pain, Denies sinus pressure and Denies other ( Thrush) Card Denies chest pain, Denies pedal edema, Denies dyspnea, Denies orthopnea and Denies paroxysmal nocturnal dyspnea Resp Denies cough, Denies hemoptysis, Denies excessive phlegm production, Denies dyspnea, Denies snoring and Denies wheezing GI Denies abdominal pain and Denies heartburn Musc Denies myalgias, Denies arthralgias and Denies joint swelling Skin/Breast Denies rash Neuro Denies memory loss and Denies seizure-like activity Psych Denies abnormal sleep pattern, Denies anxiety and Denies memory loss Endo Denies excessive sweating, Denies fatigue and Denies heat intolerance Jerson/Lymph Denies easy bruising Aller/Immun Denies itchy eyes, Denies seasonal rhinorrhea and Denies wheezing Physical Exam Vital Signs: Last Vital Signs Pulse 82 09/14/24 11:18 BP 132/74 09/14/24 11:18 Pulse Ox 96 09/14/24 11:18 Oxygen Delivery Method Room Air 09/14/24 11:18 BMI result Body Mass Index 33.6 Const General: no acute distress and alert Nutritional Appearance: not obese Orientation/consciousness: Other orientation findings ( oriented) HEENT Head: Yes atraumatic Eyes General: appearance normal, both eyes and all related structures Sclerae: sclerae normal EOM: EOMs intact bilaterally Neck Neck: Yes supple Lymphatic: no lymphadenopathy noted Resp Effort & Inspection: normal respiratory effort and no use of accessory muscles Auscultation: clear to auscultation bilaterally Cardio Rate: regular rate Rhythm: regular rhythm Heart sounds: no gallops, no murmurs and no rubs Skin General skin exam: other ( warm) Extrem General: No clubbing, No cyanosis and No edema Assessment & Plan Assessment & Plan (1) Asthma: Code(s): J45.909 - Unspecified asthma, uncomplicated Category: Medical Qualifiers: Asthma severity: moderate Asthma persistence: persistent Asthma compli cation type: uncomplicated Qualified Code(s): J45.40 - Moderate persistent asthma, uncomplicated Plan: Worsening control on Breo and albuterol MDI. Will request Xolair approval. (2) Environmental allergies: Code(s): Z91.09 - Other allergy status, other than to drugs and biological substances Category: Medical Plan: Expect to improve after Xolair initiation. Coding Level of Care Code Est Pt Level 4 (53207) Diagnoses Moderate persistent asthma without complication J45.40 Asthma severity: moderate Asthma persistence: persistent Asthma complication type: uncomplicated Environmental allergies Z91.09
== END 2024-09-14 11:55 | disposition home or self-care (01) ==
LOC: HO.HPS 11:16
PROVIDERS: PCP Internal Medicine; Visit Provider Internal Medicine Pulmonary Disease
DX: J45.40 Moderate persistent asthma, uncomplicated (principal); Z91.09 Other allergy status, other than to drugs and biological substances
CPT/HCPCS: 99214

== ENCOUNTER → 2024-09-14 11:16 | Outpatient (BNVA) | payer OTHER, SELFPAY | PROVIDERS: PCP Internal Medicine; Visit Provider Internal Medicine Pulmonary Disease | DX: J45.40 Moderate persistent asthma, uncomplicated (principal); Z91.09 Other allergy status, other than to drugs and biological substances | CPT/HCPCS: 99212 ==

== ENCOUNTER 2024-11-14 11:03 | Outpatient (AMB) | payer OTHER, SELFPAY ==
[2024-11-14 11:06] VITALS: BP 100/60; PULSE 82; O2SAT 97
--- NOTE | 2024-11-14 11:06 | MHC.OFFVIS ---
Vital Signs 11/14/24 11:06 Weight 196 lb 3.382 oz BP 100/60 Blood Pressure Location Rt brachial Position Sitting Pulse 82 Pulse Source Pulse Oximeter Pulse Oximetry (%) 97 Oxygen Delivery Method Room Air Intake Visit Reasons: Asthma Allergies egg [EGG] Allergy (Intermediate, Verified 11/14/24 11:11) VOMITING oxycodone [OXYCODONE] Allergy (Intermediate, Verified 11/14/24 11:11) NAUSEA/NIGHTMARES Penicillins [PCN] Allergy (Intermediate, Verified 11/14/24 11:11) RASH tramadol [TRAMADOL] Allergy (Intermediate, Verified 11/14/24 11:11) ITCHING acetaminophen [Percocet] Allergy (Unknown, Verified 11/14/24 11:11) none codeine Allergy (Unknown, Verified 11/14/24 11:11) nightmares Medication List - Last Reconciled 11/14/24 by Suad Joaquin LPN acetaminophen 650 mg (2 x 325 mg) PO Q6H PRN 30 days [adult- pull ups large As directed] albuterol sulfate 90 mcg/actuation 2 puffs inhalation Q6-8H PRN 90 days aspirin 1 tab PO DAILY 30 days atorvastatin 40 mg PO BEDTIME 30 days blood sugar diagnostic (FreeStyle Lite Strips) 3 times daily blood-glucose meter (FreeStyle Mcrae Helena Lite kit) As directed blood-glucose meter,continuous (FreeStyle Everett 3 Tatum) As directed blood-glucose sensor (FreeStyle Everett 3 Sensor device) As directed cholecalciferol (vitamin D3) (Vitamin D3) 50 mcg PO DAILY clotrimazole 1% 1 appl See Protocol topical BID 30 days docusate sodium 100 mg PO BID 30 days duloxetine 60 mg PO BID 30 days empagliflozin (Jardiance) 25 mg PO QAM 30 days insulin glargine 22 units (0.22 mL) subcut DAILY 30 days lisinopril 5 mg PO DAILY 90 days metformin 1,000 mg PO BID 30 days montelukast 10 mg PO DAILY 30 days omeprazole 20 mg PO DAILY 90 days pen needle, diabetic (BD Ultra-Fine Pippa Pen Needle) As directed sennosides (Senna Lax) 8.6 mg PO BEDTIME 30 days sertraline 150 mg (3 x 50 mg) PO DAILY 30 days Shower Chair As directed tirzepatide (Mounjaro) 5 mg (0.5 mL) subcut QWEEK 28 days trazodone 50 mg PO BEDTIME MRX1 PRN 30 days underpads As directed [wipes As directed] HPI HPI Asthma: Details: 59-year-old lady, lifetime nonsmoker, followed for underlying asthma and environmental allergies. She has been using Breo and albuterol MDI with worsening control of his symptoms. She does have significant environmental allergies. She denies recent acute exacerbations. After the last office visit patient has been approved for Xolair, however she has not started that yet. Her symptoms at this time suboptimally controlled on she also has a mild bronchitic exacerbation. [facility] Medical History Primary osteoarthritis of left knee Constipation Contusion of left knee, sequela Muscle strain of right shoulder region Candidal intertrigo Meniere's disease Memory impairment Arthritis Fibromyalgia Diabetic acidosis, type I Obesity (BMI 30-39.9) Depression Anxiety Insomnia Iron deficiency Vitamin D deficiency Osteoarthrosis GERD without esophagitis Allergic rhinitis Pure hypercholesterolemia Diabetes mellitus Benign essential hypertension Fibromyalgia Asthma Obesity Dyslipidemia Hypertension halfway (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 Diabetic nephropathy associated with type 2 diabetes mellitus Diabetes type 2, uncontrolled Surgical History Hx of hernia repair History of loop electrical excision procedure (LEEP) Family History Father Diabetes Mother No problems noted. Maternal Grandmother Breast cancer Social History Household Members: Family Housing: Apartment Do you presently have visiting nurse or other home services: No Alcohol intake: never Patient Tobacco Use Status: Never used Tobacco e-Cigarette/Vaping Use: Never Used Second Hand Smoke Exposure: Yes service: No Current occupational status: disabled Cognitive needs: Yes (cane) Hearing needs: No Vision needs: Yes (glasses) Female Reproductive History Menstrual Age of Menarche: 10 Review of Systems Const Denies daytime sleepiness, Denies excessive sweating, Denies fatigue, Denies fever(s), Denies lethargy, Denies malaise, Denies night sweats, Denies snoring and Denies weight loss Eyes Denies blurry vision and Denies itchy eyes ENT Denies nasal congestion, Denies post nasal drip, Denies sinus pain, Denies sinus pressure and Denies other ( Thrush) Card Denies chest pain, Denies pedal edema, Denies dyspnea, Denies orthopnea and Denies paroxysmal nocturnal dyspnea Resp Reports cough, Denies hemoptysis, Reports excessive phlegm production, Denies dyspnea, Denies snoring and Denies wheezing GI Denies abdominal pain and Denies heartburn Musc Denies myalgias, Denies arthralgias and Denies joint swelling Skin/Breast Denies rash Neuro Denies memory loss and Denies seizure-like activity Psych Denies abnormal sleep pattern, Denies anxiety and Denies memory loss Endo Denies excessive sweating, Denies fatigue and Denies heat intolerance Jerson/Lymph Denies easy bruising Aller/Immun Denies itchy eyes, Denies seasonal rhinorrhea and Denies wheezing Physical Exam Vital Signs: Last Vital Signs Pulse 82 11/14/24 11:06 BP 100/60 11/14/24 11:06 Pulse Ox 97 11/14/24 11:06 Oxygen Delivery Method Room Air 11/14/24 11:06 Const General: no acute distress and alert Nutritional Appearance: not obese Orientation/consciousness: Other orientation findings ( oriented) HEENT Head: Yes atraumatic Eyes General: appearance normal, both eyes and all related structures Sclerae: sclerae normal EOM: EOMs intact bilaterally Neck Neck: Yes supple Lymphatic: no lymphadenopathy noted Resp Effort & Inspection: normal respiratory effort and no use of accessory muscles Auscultation: clear to auscultation bilaterally Cardio Rate: regular rate Rhythm: regular rhythm Heart sounds: no gallops, no murmurs and no rubs Skin General skin exam: other ( warm) Extrem General: No clubbing, No cyanosis and No edema Assessment & Plan Assessment & Plan (1) Severe persistent asthma: Code(s): J45.50 - Severe persistent asthma, uncomplicated Category: Medical Plan: Suboptimally controlled on Breo and albuterol MDI. Expect to improve after start on Xolair. Now with a mild bronchitic exacerbation, will treat with a course of azithromycin. (2) Environmental allergies: Code(s): Z91.09 - Other allergy status, other than to drugs and biological substances Category: Medical Plan: Expect to improve on Xolair. Medications: New azithromycin For 250 mg dose pack: take 500 mg today (day 1), then 250 mg for 4 days (days 2-5) PO 6 tabs 0RF Coding Level of Care Code Est Pt Level 4 (64356) Diagnoses Severe persistent asthma J45.50 Environmental allergies Z91.09
== END 2024-11-14 13:16 | disposition home or self-care (01) ==
PROVIDERS: PCP Internal Medicine; Visit Provider Internal Medicine Pulmonary Disease
DX: J45.50 Severe persistent asthma, uncomplicated (principal); Z91.09 Other allergy status, other than to drugs and biological substances
CPT/HCPCS: 99214

== ENCOUNTER → 2024-11-14 11:03 | Outpatient (BNVA) | payer OTHER, SELFPAY | PROVIDERS: PCP Internal Medicine; Visit Provider Internal Medicine Pulmonary Disease | DX: J45.50 Severe persistent asthma, uncomplicated (principal); Z91.09 Other allergy status, other than to drugs and biological substances | CPT/HCPCS: 99212 ==

== ENCOUNTER 2024-12-28 13:42 | Outpatient (AMB) | payer MEDICARE, MEDICAID, SELFPAY ==
[2024-12-28 13:46] VITALS: BP 116/70; PULSE 72; O2SAT 97; BMI 33.7
--- NOTE | 2024-12-28 13:46 | MHC.PC.OV ---
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 Lace Tearing Required: No Accompanied by: Self / Same As Patient Allergies egg [EGG] Allergy (Intermediate, Verified 12/28/24 14:23) VOMITING oxycodone [OXYCODONE] Allergy (Intermediate, Verified 12/28/24 14:23) NAUSEA/NIGHTMARES Penicillins [PCN] Allergy (Intermediate, Verified 12/28/24 14:23) RASH tramadol [TRAMADOL] Allergy (Intermediate, Verified 12/28/24 14:23) ITCHING acetaminophen [Percocet] Allergy (Unknown, Verified 12/28/24 14:23) none codeine Allergy (Unknown, Verified 12/28/24 14:23) nightmares Medication List - Last Reconciled 01/01/25 by Dwayne Stone MD acetaminophen 650 mg (2 x 325 mg) PO Q6H PRN 30 days [adult- pull ups large As directed] albuterol sulfate 90 mcg/actuation 2 puffs inhalation Q6-8H PRN 90 days aspirin 1 tab PO DAILY 30 days atorvastatin 40 mg PO BEDTIME 90 days azithromycin For 250 mg dose pack: take 500 mg today (day 1), then 250 mg for 4 days (days 2-5) PO blood sugar diagnostic (FreeStyle Lite Strips) 3 times daily blood-glucose meter (FreeStyle [place] Lite kit) As directed blood-glucose meter,continuous (FreeStyle [place] 3 [place]) As directed blood-glucose sensor (FreeStyle [place] 3 Sensor device) As directed cholecalciferol (vitamin D3) (Vitamin D3) 50 mcg PO DAILY clotrimazole 1% 1 appl See Protocol topical BID 30 days docusate sodium 100 mg PO BID 30 days duloxetine 60 mg PO BID 30 days empagliflozin (Jardiance) 25 mg PO QAM 30 days insulin glargine 22 units (0.22 mL) subcut DAILY 30 days lisinopril 5 mg PO DAILY 90 days metformin 1,000 mg PO BID 30 days montelukast 10 mg PO DAILY 90 days omalizumab (Xolair) 300 mg subcut Q2W omeprazole 20 mg PO DAILY 90 days pen needle, diabetic (BD Ultra-Fine [place] Pen Needle) As directed [RECLINER As directed] sennosides (Senna Lax) 8.6 mg PO BEDTIME 30 days sertraline 150 mg (3 x 50 mg) PO DAILY 30 days Shower Chair As directed tirzepatide (Mounjaro) 5 mg (0.5 mL) subcut QWEEK 28 days trazodone 50 mg PO BEDTIME MRX1 PRN 30 days underpads As directed [wipes As directed] Tobacco use date assessed: 12/28/24 Dental Screening Dental Screen Date: 12/28/24 Did you have a dental visit in the last 12 months?: Yes Did you have a dental problem in the last 6 months where you did not have access to dental care?: No Was dental information given to patient?: Patient has dentist HPI 3M F/U HPI Details Patient comes in today for her follow-up visit States that she feels okay She denies any headaches or dizziness Denies any chest pains, no increased shortness of breath No nausea/vomiting, no abdominal pain No change in bowel habits noted She missed her last appointment in September 2024 so she has no follow-up labs ordered recently She last had her labs done back on 09/12/2024 She also needs a few of her Rx refilled and would also like to get a new prescription for a recliner [facility] Medical History (Updated 01/01/25 @ 19:09 by Dwayne Stone MD) Cerebellar ataxia Primary osteoarthritis of left knee Constipation Contusion of left knee, sequela Muscle strain of right shoulder region Candidal intertrigo Meniere's disease Memory impairment Arthritis Fibromyalgia Diabetic acidosis, type I Obesity (BMI 30-39.9) Depression Anxiety Insomnia Iron deficiency Vitamin D deficiency Osteoarthrosis GERD without esophagitis Allergic rhinitis Pure hypercholesterolemia Diabetes mellitus Benign essential hypertension Fibromyalgia Asthma Obesity Dyslipidemia Hypertension 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 Maternal Grandmother Breast cancer Social History Household Members: Family Housing: Apartment Do you presently have visiting nurse or other home services: No Alcohol intake: never Patient Tobacco Use Status: Never used Tobacco e-Cigarette/Vaping Use: Never Used Second Hand Smoke Exposure: Yes service: No Current occupational status: disabled Cognitive needs: Yes (cane) Hearing needs: No Vision needs: Yes (glasses) Female Reproductive History Menstrual Age of Menarche: 10 Questionnaire PHQ-9 Over the last 2 weeks, how often have you been bothered by any of the following problems? 1. Little interest or pleasure in doing things: several days 2. Feeling down, depressed, or hopeless: nearly every day 3. Trouble falling or staying asleep, or sleeping too much: several days 4. Feeling tired or having little energy: more than half the days 5. Poor appetite or overeating: several days 6. Feeling bad about yourself - or that you are a failure or have let yourself or your family down: several days 7. Trouble concentrating on things, such as reading the newspaper or watching television: several days 8. Moving or speaking so slowly that other people could have noticed. Or the opposite - being so fidgety or restless that you have been moving around a lot more than usual: several days 9. Thoughts that you would be better off or of hurting yourself in some way: not at all Total score: 11 Depression Screening Interpretation: Positive Depression Screening Follow-up: Existing condition and In treatment Depression Screening Done: Yes 18318 - PHQ-9 Billing: Yes Source: Developed by Drs. Kory Jerez, Nina Minaya, Basilio Peterson and colleagues, with an educational sheldon from [employer]. Thrive Questionnaire Date Thrive assessed: 12/28/24 I am a: Patient What is your living situation today?: I have a steady place to live Within the past 12 months, did the food you bought not last and you didn't have the money to get more?: Never true Within the past 12 months, did you worry whether your food would run out before you got money to buy more?: Never true Do you have trouble paying for medicines?: No Do you have trouble getting transportation to medical appointments?: No Do you have trouble paying your heating and electricity bill?: No Do you have trouble taking care of your child, family member or friend?: No Do you have trouble with day-to-day activities such as bathing, preparing meals, shopping, managing finances, etc.?: No Are you currently unemployed and looking for a job?: No Are you interested in more education?: No Please select the resources that you would like help with: None Currently or been in a relationship where the following occur: No concerns reported THRIVE Score: 0 AUDIT C Alcohol Use Questionnaire (AUDIT-C) 1. How often do you have a drink containing alcohol?: Never 3. How often do you have six or more drinks on one occasion?: Never Total Score: 0 Score Reviewed/Action Taken: Yes RACHAEL-7 AMB Questionnaire RACHAEL-7 Date RACHAEL - 7 assessed: 12/28/24 Feeling nervous, anxious, or on edge: 0 = Not at all Not being able to stop or control worryin = Not at all Worrying too much about different things: 0 = Not at all Trouble relaxin = Not at all Being so restless that it is hard to sit still: 0 = Not at all Becoming easily annoyed or irritable: 0 = Not at all Feeling afraid as if something awful might happen: 0 = Not at all Total RACHAEL-7 score (0-4 normal; 5-9 mild; 10-14 moderate; 15-21 severe): 0 Source: Developed by Drs. Kory Jerez, Nina Minaya, Basilio Peterson and colleagues, with an educational sheldon from [employer]. Review of Systems Const Denies chills, Reports difficulty sleeping, Reports fatigue, Denies fever(s) and Denies headache(s) ENT Denies dysphagia, Denies dizziness, Denies otalgia, Denies headache(s), Denies neck pain, Denies odynophagia and Denies sore throat Card Denies chest pain, Denies irregular heart rhythm, Denies palpitations and Denies dyspnea Resp Denies chest congestion, Denies cough and Denies dyspnea GI Denies abdominal pain, Denies constipation, Denies dysphagia, Denies heartburn, Denies diarrhea, Denies nausea, Denies odynophagia and Denies vomiting Denies hematuria, Denies difficulty voiding, Denies dysuria, Denies urinary incontinence and Denies urinary urgency Musc Reports abnormal gait (unsteady), Reports back pain (over the lower back), Reports myalgias (diffuse), Reports arthralgias (involving multiple joints, especially over her L knee and R shoulder) and Denies neck pain Skin/Breast Details: (+) painful corns on the soles of both feet Denies rash Neuro Reports abnormal gait (unsteady), Denies dizziness and Denies headache(s) Endo Reports fatigue and Denies palpitations Physical exam (Primary Care) Vital Signs: Last Vital Signs Pulse 72 12/28/24 13:46 BP 116/70 12/28/24 13:46 Pulse Ox 97 12/28/24 13:46 Oxygen Delivery Method Room Air 12/28/24 13:46 BMI result Body Mass Index 33.7 Tobacco/Smoking Status: Tobacco use Status Tobacco use date assessed 12/28/24 12/28/24 13:51 Patient Tobacco Use Status Never used Tobacco 12/28/24 13:51 e-Cigarette/Vaping Use Never Used 12/28/24 13:51 PHQ-9: PHQ-9 Score PHQ-9: Total score 11 12/28/24 14:39 Depression Screening Interpretation: Positive Depression Screening Follow-up: Existing condition and In treatment Thrive Assessment: Date of Thrive Assessment Date Thrive assessed 12/28/24 12/28/24 13:51 Currently or been in a relationship where the following occur: No concerns reported Const General: no acute distress and alert HENMT Ears: TM's normal bilaterally and EAC's normal Throat: Yes posterior oropharynx normal and Yes tonsils normal (no TP congestion noted) Neck Neck: Yes supple and No lymphadenopathy Thyroid: Thyroid normal Resp Auscultation: clear to auscultation bilaterally, no rales and no wheezes Cardio Rate: regular rate Rhythm: regular rhythm Heart sounds: no murmurs GI Palpation (GI): Soft to palpation and nontender Auscultation: normal bowel sounds General: Yes no CVA tenderness Back/Spine/Pelvis Back: no CVA tenderness Thoracic/Lumbar Spine: paraspinal muscle tenderness bilaterally in the lower thoracic, in the upper lumbar, in the mid lumbar and in the lower lumbar and lumbar spinal tenderness Skin Rashes: no rashes Extrem Other: (+) tender thickened calluses noted over the soles of both feet General: Yes no clubbing, cyanosis or edema Right upper extremity: shoulder/upper arm Details: tenderness Location: of the A-C joint and of the scapula; no swelling Left upper extremity: elbow/forearm Details: tenderness; no swelling Right lower extremity: knee Details: tenderness Results Reviewed Results Reviewed: Laboratory Tests 09/12/24 09/12/24 12:58 13:04 WBC 8.3 Hgb 13.2 Hct 41.4 Plt Count 211 Sodium 141 Potassium 4.0 Creatinine 0.77 Estimated GFR > 60 Fasting Glucose 166 H Hemoglobin A1c % 6.3 H Calcium 10.0 AST 31 ALT 33 H Triglycerides 134 Cholesterol 141 LDL Cholesterol, Calc 51 HDL Cholesterol 64 Vitamin B12 337 25-OH Vitamin D Total 47.9 TSH 1.94 Ur Specific [place] >= 1.030 H Urine Protein Negative Urine Glucose (UA) >=1000 H Urine Blood Negative Urine Nitrite Negative Ur Leukocyte Esterase Negative Microalb/Creat Ratio 11.8 ' Coding Level of Care Code Est Pt Level 4 (85979) Diagnoses Type 2 diabetes mellitus without complication, with long-term current use of insulin E11.9; Z79.4 Diabetes mellitus type: type 2 Diabetes mellitus manager long term care insulin use: with manager long term care use Diabetes mellitus complication status: without complication Pure hypercholesterolemia E78.00 Benign essential hypertension I10 Cerebellar ataxia G11.9 GERD without esophagitis K21.9 Moderate persistent asthma without complication J45.40 Asthma severity: moderate Asthma persistence: persistent Asthma complication type: uncomplicated Primary osteoarthritis, unspecified site M19.91 Osteoarthritis location: unspecified site Osteoarthritis type: primary Primary osteoarthritis of left knee M17.12 Allergic rhinitis, unspecified seasonality, unspecified trigger J30.9 Allergic rhinitis trigger: unspecified Allergic rhinitis seasonality: unspecified Vitamin D deficiency E55.9 Constipation, unspecified constipation type K59.00 Constipation type: unspecified constipation type Fibromyalgia M79.7 Insomnia, unspecified type G47.00 Insomnia type: unspecified Anxiety F41.9 MDD (major depressive disorder), recurrent episode, moderate F33.1 Obesity (BMI 30-39.9) E66.9 Additional Codes PHQ-9 - 36889 - PHQ-9 Billing: Yes ([id number]) Assessment & Plan Assessment & Plan (1) Diabetes mellitus: Code(s): E11.9 - Type 2 diabetes mellitus without complications Category: Medical Qualifiers: Diabetes mellitus type: type 2 Diabetes mellitus manager long term care insulin use: with [facility] use Diabetes mellitus complication status: without complication Qualified Code(s): E11.9 - Type 2 diabetes mellitus without complications; Z79.4 - [facility] (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 Plan: Her HgbA1c was 6.3% when last checked in September 2024 - goal is least <7.0% but ideally <6.5% Reinforced diabetic diet Continue Metformin 1000 mg BID, Jardiance 25 mg QD and Mounjaro 7.5 mg SQ once a week Her Lantus was held at her last endocrinology follow-up due to her well-controlled diabetes Follow-up with endocrinology as scheduled (2) Pure hypercholesterolemia: Code(s): E78.00 - Pure hypercholesterolemia, unspecified Category: Medical Plan: Results of her labs done back in September 2024 reviewed and discussed with patient Reinforce low-cholesterol diet Continue Atorvastatin 40 mg QD Will recheck her labs and fasting lipids in 3 months for follow-up (3) Benign essential hypertension: Code(s): I10 - Essential (primary) hypertension Category: Medical Plan: Reinforced low sodium diet - goal is systolic BP of at least 120 to 130 mm or less Continue Lisinopril 5 mg QD (4) Cerebellar ataxia: Code(s): G11.9 - Hereditary ataxia, unspecified Category: Medical Plan: She was diagnosed by neurology in September 2022 with cerebellar ataxia, when she was referred for further evaluation of her recurrent dizziness MRI of the brain done in September 2022 revealed (+) scattered nonspecific white matter T2 hyperintensities in both cerebral hemispheres with no evidence for acute or subacute cerebral ischemia, hemorrhage, extra-axial fluid collection, space-occupying process, mass effect or hydrocephalus Follow up with neurology as scheduled (5) GERD without esophagitis: Code(s): K21.9 - Gastro-esophageal reflux disease without esophagitis Category: Medical Plan: Dietary restrictions reinforced Continue Omeprazole 20 mg QD (6) Asthma: Code(s): J45.909 - Unspecified asthma, uncomplicated Category: Medical Qualifiers: Asthma severity: moderate Asthma persistence: persistent Asthma complication type: uncomplicated Qualified Code(s): J45.40 - Moderate persistent asthma, uncomplicated Plan: Patient started her Xolair injections at 300 mg SQ every 2 weeks a few weeks ago - states that she's had 2 doses already so far and that her asthma has been much better controlled lately Continue Breo Ellipta 225 mcg 1 inhalation QD and Albuterol HFA 1-2 inhalations every 6 hours PRN follow-up with pulmonary as scheduled (7) Osteoarthrosis: Code(s): M19.90 - Unspecified osteoarthritis, unspecified site Category: Medical Qualifiers: Osteoarthritis location: unspecified site Osteoarthritis type: primary Qualified Code(s): M19.91 - Primary osteoarthritis, unspecified site Plan: X-rays of both hands done a couple of years ago showed (+) mild OA changes in the right hand; left hand x-rays were normal except for an old metacarpal fracture that has since healed Follow-up with Orthopedics and Rheumatology as scheduled - she has been diagnosed with polyarthralgia by Rheumatology She is encouraged again on regular hand exercises to help minimize her hand stiffness and pain Continue Tramadol 50 mg TID PRN and Tylenol Arthritis 650 mg 3 times a day as needed, Piroxicam 10 mg once a day with food as needed and Diclofenac 1% topical Gel TID PRN (8) Primary osteoarthritis of left knee: Code(s): M17.12 - Unilateral primary osteoarthritis, left knee Category: Medical Plan: X-rays of the left knee done last year revealed (+) moderate degenerative changes Will consider orthopedic referral if her knee pain gets worse (9) Allergic rhinitis: Code(s): J30.9 - Allergic rhinitis, unspecified Category: Medical Qualifiers: Allergic rhinitis trigger: unspecified Allergic rhinitis seasonality: unspecified Qualified Code(s): J30.9 - Allergic rhinitis, unspecified Plan: Continue Montelukast 10 mg QD, Loratadine 10 mg QD PRN and Fluticasone 50 mcg nasal spray QD PRN (10) Vitamin D deficiency: Code(s): E55.9 - Vitamin D deficiency, unspecified Category: Medical Plan: Continue Vitamin D3 2000 units QD (11) Constipation: Code(s): K59.00 - Constipation, unspecified Category: Medical Qualifiers: Constipation type: unspecified constipation type Qualified Code(s): K59.00 - Constipation, unspecified Plan: Improved; reinforced increased oral fluids and dietary fiber Continue Senna 8.6 mg QD PRN (12) Fibromyalgia: Code(s): M79.7 - Fibromyalgia Category: Medical Plan: Patient is encouraged again on regular exercise and physical activity to help manage her fibromyalgia symptoms Continue Duloxetine 60 mg once a day and Tizanidine 4 mg Q HS PRN Continue Pregabalin 50 mg BID - is tolerating Lyrica so far (she was taken off Gabapentin previously as she was concerned that the medication was affecting her memory) (13) Insomnia: Code(s): G47.00 - Insomnia, unspecified Category: Medical Qualifiers: Insomnia type: unspecified Qualified Code(s): G47.00 - Insomnia, unspecified Plan: Sleep hygiene reinforced Continue Trazodone 50 mg Q HS PRN (14) Anxiety: Code(s): F41.9 - Anxiety disorder, unspecified Category: Medical Plan: Continue Lorazepam 0.5 mg Q HS PRN and Hydroxyzine 25 mg 3 times a day as needed (15) MDD (major depressive disorder), recurrent episode, moderate: Code(s): F33.1 - Major depressive disorder, recurrent, moderate Category: Medical Plan: Continue Bupropion ER 300 mg once a day Follow-up with Psychiatry as scheduled (16) Obesity (BMI 30-39.9): Code(s): E66.9 - Obesity, unspecified Category: Medical Plan: Reinforced diet; exercise and weight loss are unrealistic given patient's physical issues and multiple comorbidities Plan Follow up in 3 months Orders: Orders Hemoglobin A1c 3 Months E11.9 - Type 2 diabetes mellitus without complications Lipid Panel 3 Months E78.00 - Pure hypercholesterolemia, unspecified TSH reflex Free T4 3 Months E78.00 - Pure hypercholesterolemia, unspecified Comprehensive [place]. Panel Fast 3 Months E78.00 - Pure hypercholesterolemia, unspecified Complete Blood Count Auto Diff 3 Months D64.9 - Anemia, unspecified UA CC w/rflx Micro + Cult 3 Months R30.0 - Dysuria Vitamin D 25-OH Total 3 Months E55.9 - Vitamin D deficiency, unspecified Medications: Changed From montelukast 10 mg PO DAILY 30 days 30 tabs 3RF To montelukast 10 mg PO DAILY 90 days 90 tabs 3RF From atorvastatin 40 mg PO BEDTIME 30 days 30 tabs 0RF To atorvastatin 40 mg PO BEDTIME 90 days 90 tabs 1RF Refilled lisinopril 5 mg PO DAILY 90 days 90 tabs 3RF E11.65 - Type 2 diabetes mellitus with hyperglycemia [RECLINER] As directed 1 ea 0RF M19.91 - Primary osteoarthritis, unspecified site, M79.7 - Fibromyalgia, R26.81 - Unsteadiness on feet fluticasone furoate-vilanterol 200-25 mcg/dose (Breo Ellipta) 1 inh inhalation DAILY 30 days 1 ea 6RF J45.40 - Moderate persistent asthma, uncomplicated acetaminophen 650 mg (2 x 325 mg) PO Q6H 30 days PRN 60 tabs 3RF Headache/Pain Mild Scale (1-3)
== END 2024-12-28 14:41 | disposition home or self-care (01) ==
PROVIDERS: PCP Internal Medicine; Visit Provider Internal Medicine
DX: E11.9 Type 2 diabetes mellitus without complications (principal); Z79.4 Long term (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; E78.00 Pure hypercholesterolemia, unspecified; I10 Essential (primary) hypertension; G11.9 Hereditary ataxia, unspecified; K21.9 Gastro-esophageal reflux disease without esophagitis; J45.40 Moderate persistent asthma, uncomplicated; M19.91 Primary osteoarthritis, unspecified site; M17.12 Unilateral primary osteoarthritis, left knee; J30.9 Allergic rhinitis, unspecified; E55.9 Vitamin D deficiency, unspecified; F33.1 Major depressive disorder, recurrent, moderate; K59.00 Constipation, unspecified; M79.7 Fibromyalgia; G47.00 Insomnia, unspecified; F41.9 Anxiety disorder, unspecified; E66.9 Obesity, unspecified

== ENCOUNTER → 2024-12-28 13:42 | Outpatient (BNVA) | payer MEDICARE, MEDICAID, SELFPAY | PROVIDERS: PCP Internal Medicine; Visit Provider Internal Medicine | DX: E11.9 Type 2 diabetes mellitus without complications (principal); Z79.4 Long term (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; E78.00 Pure hypercholesterolemia, unspecified; I10 Essential (primary) hypertension; G11.9 Hereditary ataxia, unspecified; K21.9 Gastro-esophageal reflux disease without esophagitis; J45.40 Moderate persistent asthma, uncomplicated; M19.91 Primary osteoarthritis, unspecified site; M17.12 Unilateral primary osteoarthritis, left knee; J30.9 Allergic rhinitis, unspecified; E55.9 Vitamin D deficiency, unspecified; K59.00 Constipation, unspecified; M79.7 Fibromyalgia; G47.00 Insomnia, unspecified; F41.9 Anxiety disorder, unspecified | CPT/HCPCS: 96127; 99212 ==

== ENCOUNTER 2025-01-12 09:29 | Outpatient (AMB) | payer OTHER, SELFPAY ==
--- NOTE | 2025-01-12 07:32 | A.OFFVIS_ITS ---
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 not see a Slusher Operator Most recent HbA1c: 6.2%, 01/12/2025 Random Glucose- 100 mg/dL, Today Addictions Counselor Assistant Required: Yes Addictions Counselor Assistant Services: Addictions Counselor Assistant Present Addictions Counselor Assistant Name: ERIN Trevizo/СВЕТЛАНА LAUREN Accompanied by: Self / Same As Patient Allergies egg [EGG] Allergy (Intermediate, Verified 01/12/25 09:40) VOMITING oxycodone [OXYCODONE] Allergy (Intermediate, Verified 01/12/25 09:40) NAUSEA/NIGHTMARES Penicillins [PCN] Allergy (Intermediate, Verified 01/12/25 09:40) RASH tramadol [TRAMADOL] Allergy (Intermediate, Verified 01/12/25 09:40) ITCHING acetaminophen [Percocet] Allergy (Unknown, Verified 01/12/25 09:40) none codeine Allergy (Unknown, Verified 01/12/25 09:40) nightmares HPI Comments Details: Patient is 59-year-old female with DM type 2 diagnosed in 1996 who presents for management of diabetes. She was last seen 07/15/24 at which time Mounjaro was increased to 7.5 mg and Lantus 10 units at bedtime was discontinued. She was not able to tolerate the 7.5 mg of Mounjaro and continues to take the Lantus. Prior to that visit she had not been taking her medications except Mounjaro. She was started on a freestyle Everett 2 in May. HgbA1C 01/12/25 6.7%. Intolerant of Trulicity and Ozempic due to gastric upset and pain. Diabetes medications: Metformin 1000 mg twice a day Jardiance 25 mg Mounjaro 5.0 mg Qwkly Lantus 10 units at bedtime Freestyle everett sensor 3 average glucose: 134 14 day continuous glucose sensor report reviewed Glucose Management indicator 6.4 % Time CGM active % TIme in ranges: 0 % very high (above 250) Three % high (181-250) 97 % in range (70-180] 0 % low (69-55) 0 % very low (below 54) [ ] Glucose variability [ ] (target <36%) Interpretation of CGMS glucose in perfect control without lows Micro and macrovascular complications: Nephropathy: microalbumin 36 09/12/24 (12.o 09/2024) eGFR >60 Neuropathy: Numbness + no cramping in lower extremeties as upcoming appointment at [facility]. Ophthalmology evaluation:03/02 -no retinopathy She will schedule at [facility] LDL 51 09/12/24 on Statin Denies history of CAD, CVA or PVD Denies chest pain, dyspnea or claudication symptoms. She is recovering from bronchitis and has seen a personal injury specialist. [employer] - CDE education: in the past Other specialists: denies [facility] screen Fibrosis-4 (Fib-4) Index for liver fibrosis (calculated on lab work done: 04/01) [1.1 ] points Advanced fibrosis [excluded ] Approximate Fibrosis stage Dasha [0-1 ] *Use with caution in patients <35 or >65 years old, as the score has been shown to be less reliable in these patients. Prior Imaging [08/[address]] LIVER, GALLBLADDER, AND BILIARY TREE: The liver is normal in size, shape, and attenuation. There is a small calcification in the left lobe of the liver. No other focal hepatic lesion or biliary ductal dilatation is present. The gallbladder is unremarkable with no evidence of radiopaque gallstones, gallbladder wall thickening, or obvious pericholecystic inflammatory changes. Action Plan: [] rescreen two years from date of screening labs[04/03] [facility] Medical History Cerebellar ataxia Primary osteoarthritis of left knee Constipation Contusion of left knee, sequela Muscle strain of right shoulder region Candidal intertrigo Meniere's disease Memory impairment Arthritis Fibromyalgia Diabetic acidosis, type I Obesity (BMI 30-39.9) Depression Anxiety Insomnia Iron deficiency Vitamin D deficiency Osteoarthrosis GERD without esophagitis Allergic rhinitis Pure hypercholesterolemia Diabetes mellitus Benign essential hypertension Fibromyalgia Asthma Obesity Dyslipidemia Hypertension prison (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 Diabetic nephropathy associated with type 2 diabetes mellitus Diabetes type 2, uncontrolled Surgical History Hx of hernia repair History of loop electrical excision procedure (LEEP) Family History Father Diabetes Mother No problems noted. Maternal Grandmother Breast cancer Social History Household Members: Family Housing: Apartment Do you presently have visiting nurse or other home services: No Alcohol intake: never Patient Tobacco Use Status: Never used Tobacco e-Cigarette/Vaping Use: Never Used Second Hand Smoke Exposure: Yes service: No Current occupational status: disabled Cognitive needs: Yes (cane) Hearing needs: No Vision needs: Yes (glasses) Female Reproductive History Menstrual Age of Menarche: 10 Physical Exam Vital Signs: Last Vital Signs Pulse 71 01/12/25 09:40 BP 122/76 01/12/25 09:40 Pulse Ox 98 01/12/25 09:40 Oxygen Delivery Method Room Air 01/12/25 09:40 BMI result Body Mass Index 34.5 Const Other: Absence of Cushingoid features. Absence of acromegalic features. Neck exam reveals nl size thyroid about 15 gms. No thyroid nodules palpable. No carotid bruits present. Lungs CTA. Heart S1 S2, Reg R/R. No M/R G. Skin exam reveals absence of vitiligo or acanthosis nigricans. No edema Visual exam of foot performed. No ulcerations or open lesions. No inter digit maceration or fissuring. No onychomycosis, no callouses. Sensation intact to monofilament exam. Vibratory sensation is normal with 128 Hz tuning fork. Office Procedures Glucose Monitoring Details Details: see [facility] [id number] - Glucose monitoring, continuous-physician I&R Procedure code (CPT) selection complete Results AMB Hemoglobin A1c AMB Hemoglobin A1c 6.2 % Last Edit by ERIN Trevizo on 01/12/25 09:59 Assessment & Plan Assessment & Plan (1) Diabetes mellitus: Code(s): E11.9 - Type 2 diabetes mellitus without complications Category: Medical Qualifiers: Diabetes mellitus complication status: without complication Diabetes mellitus halfway insulin use: with halfway use Diabetes mellitus type: type 2 Qualified Code(s): E11.9 - Type 2 diabetes mellitus without complications; Z79.4 - prison (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 Plan: 59-year-old type 2 diabetic with mild nephropathy and neuropathy currently under excellent control. She is now taking all her medications and using a freestyle Everett 3 which shows a glucose management indicator of 6.5% and her A1C is 6.7% Continue current medication She is exercising regularly and following a balanced diet. Everyone in her family is now being served a balanced diet. The patient had an opportunity to ask questions regarding treatment plan. The patient expressed understanding and agreement with the above treatment plan. The patient is aware they should contact our office by phone for worsening glucose readings or for any low blood sugars which may warrant a change in diabetes medication. Compliance is encouraged with medications and any followup testing/consults which may have been ordered. Orders: Orders AMB Hemoglobin A1c Today Ximena Pham NP E11.65 - Type 2 diabetes mellitus with hyperglycemia AMB Glucose Monitoring Today Ximena Pham NP E11.9 - Type 2 diabetes mellitus without complications, Z79.4 - superintendent [employer] (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 Medications: Resumed insulin glargine 10 units (0.1 mL) subcut DAILY 30 days 3 mL 6RF Ximena Pham NP E11.65 - Type 2 diabetes mellitus with hyperglycemia insulin glargine 22 units (0.22 mL) subcut DAILY 30 days 6.6 mL 6RF Dwayne Stone MD E11.65 - Type 2 diabetes mellitus with hyperglycemia Patient Instructions: The patient was counseled to achieve a target A1C of 7% (154 avg). Fasting blood sugars should be 90-130 in the morning and less than 180 two hours after meals. Reviewed the relationship between poor diabetic control and the development of complications. Coding Level of Care Code Est Pt Level 4 (94568) Complex EM visit Add On G2211 Diagnoses Type 2 diabetes mellitus without complication, with long-term current use of insulin E11.9; Z79.4 Diabetes mellitus complication status: without complication Diabetes mellitus halfway insulin use: with predatory animal exterminator use Diabetes mellitus type: type 2 CPT Codes Details - CPT: 54174 - Glucose monitoring, continuous-physician I&R ([id number]) Time Spent (min) 30 Comment Time spent reviewing labs/provider notes, face to face, chart doc
[2025-01-12 09:40] VITALS: BP 122/76; PULSE 71; O2SAT 98; BMI 34.5
[2025-01-12 09:53] LABS: Glucose, Whole Blood 100 mg/dL (60-115)
== END 2025-01-12 09:59 | disposition home or self-care (01) ==
PROVIDERS: PCP Internal Medicine; Visit Provider Nurse Practitioner Adult Health
DX: E11.9 Type 2 diabetes mellitus without complications (principal); Z79.4 Long term (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; E11.65 Type 2 diabetes mellitus with hyperglycemia
CPT/HCPCS: 95251; 99214; G2211

== ENCOUNTER → 2025-01-12 09:29 | Outpatient (BNVA) | payer OTHER, SELFPAY | PROVIDERS: PCP Internal Medicine; Visit Provider Nurse Practitioner Adult Health | DX: E11.9 Type 2 diabetes mellitus without complications (principal); Z79.4 Long term (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 | CPT/HCPCS: 82947; 83036; 99212 ==

== ENCOUNTER 2025-02-07 10:29 | Outpatient (AMB) | payer OTHER, SELFPAY ==
--- NOTE | 2025-02-07 10:35 | MHC.OFFVIS ---
Vital Signs 02/07/25 10:38 Height 5 ft 5 in Weight 199 lb BMI 33.1 BP 109/62 Blood Pressure Location Rt brachial Position Sitting Pulse 82 Pulse Source Doppler Pulse Oximetry (%) 98 Oxygen Delivery Method Room Air Intake Visit Reasons: Asthma Case Making Machine Operator Required: Yes Case Making Machine Operator Name: Jennifer BarkerMindaSharon Allergies egg [EGG] Allergy (Intermediate, Verified 02/07/25 10:41) VOMITING oxycodone [OXYCODONE] Allergy (Intermediate, Verified 02/07/25 10:41) NAUSEA/NIGHTMARES Penicillins [PCN] Allergy (Intermediate, Verified 02/07/25 10:41) RASH tramadol [TRAMADOL] Allergy (Intermediate, Verified 02/07/25 10:41) ITCHING acetaminophen [Percocet] Allergy (Unknown, Verified 02/07/25 10:41) none codeine Allergy (Unknown, Verified 02/07/25 10:41) nightmares HPI HPI Asthma: Details: 59-year-old lady, lifetime nonsmoker, followed for underlying asthma and environmental allergies. After the last office visit patient has been started on Xolair and now reports excellent control of her underlying symptoms. She also continues on Breo and albuterol MDI. She denies recent exacerbations. 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 Maternal Grandmother Breast cancer Social History Household Members: Family Housing: Apartment Do you presently have visiting nurse or other home services: No Alcohol intake: never Patient Tobacco Use Status: Never used Tobacco e-Cigarette/Vaping Use: Never Used Second Hand Smoke Exposure: Yes service: No Current occupational status: disabled Cognitive needs: Yes (cane) Hearing needs: No Vision needs: Yes (glasses) Female Reproductive History Menstrual Age of Menarche: 10 Review of Systems Const Denies daytime sleepiness, Denies excessive sweating, Denies fatigue, Denies fever(s), Denies lethargy, Denies malaise, Denies night sweats, Denies snoring and Denies weight loss Eyes Denies blurry vision and Denies itchy eyes ENT Denies nasal congestion, Denies post nasal drip, Denies sinus pain, Denies sinus pressure and Denies other ( Thrush) Card Denies chest pain, Denies pedal edema, Denies dyspnea, Denies orthopnea and Denies paroxysmal nocturnal dyspnea Resp Denies cough, Denies hemoptysis, Denies excessive phlegm production, Denies dyspnea, Denies snoring and Denies wheezing GI Denies abdominal pain and Denies heartburn Musc Denies myalgias, Denies arthralgias and Denies joint swelling Skin/Breast Denies rash Neuro Denies memory loss and Denies seizure-like activity Psych Denies abnormal sleep pattern, Denies anxiety and Denies memory loss Endo Denies excessive sweating, Denies fatigue and Denies heat intolerance Jerson/Lymph Denies easy bruising Aller/Immun Denies itchy eyes, Denies seasonal rhinorrhea and Denies wheezing Physical Exam Vital Signs: Last Vital Signs Pulse 82 02/07/25 10:38 BP 109/62 02/07/25 10:38 Pulse Ox 98 02/07/25 10:38 Oxygen Delivery Method Room Air 02/07/25 10:38 BMI result Body Mass Index 33.1 Const General: no acute distress and alert Nutritional Appearance: not obese Orientation/consciousness: Other orientation findings ( oriented) HEENT Head: Yes atraumatic Eyes General: appearance normal, both eyes and all related structures Sclerae: sclerae normal EOM: EOMs intact bilaterally Neck Neck: Yes supple Lymphatic: no lymphadenopathy noted Resp Effort & Inspection: normal respiratory effort and no use of accessory muscles Auscultation: clear to auscultation bilaterally Cardio Rate: regular rate Rhythm: regular rhythm Heart sounds: no gallops, no murmurs and no rubs Skin General skin exam: other ( warm) Extrem General: No clubbing, No cyanosis and No edema Assessment & Plan Assessment & Plan (1) Severe persistent asthma: Code(s): J45.50 - Severe persistent asthma, uncomplicated Category: Medical Plan: Well controlled on current regimen of Xolair, Breo, and albuterol MDI. Continue current regimen. (2) Environmental allergies: Code(s): Z91.09 - Other allergy status, other than to drugs and biological substances Category: Medical Plan: Well controlled on current regimen of Xolair and Singulair. Continue current regimen. Coding Level of Care Code Est Pt Level 4 (78085) Diagnoses Severe persistent asthma J45.50 Environmental allergies Z91.09
[2025-02-07 10:38] VITALS: BP 109/62; PULSE 82; O2SAT 98; BMI 33.1
== END 2025-02-07 10:59 | disposition home or self-care (01) ==
LOC: HO.HPS 10:30
PROVIDERS: PCP Internal Medicine; Visit Provider Internal Medicine Pulmonary Disease
DX: J45.50 Severe persistent asthma, uncomplicated (principal); Z91.09 Other allergy status, other than to drugs and biological substances
CPT/HCPCS: 99214

== ENCOUNTER → 2025-02-07 10:29 | Outpatient (BNVA) | payer OTHER, SELFPAY | PROVIDERS: PCP Internal Medicine; Visit Provider Internal Medicine Pulmonary Disease | DX: J45.50 Severe persistent asthma, uncomplicated (principal); Z91.09 Other allergy status, other than to drugs and biological substances | CPT/HCPCS: 99212 ==

== ENCOUNTER 2025-03-28 09:13 | Outpatient (REF) | payer OTHER, SELFPAY ==
[2025-03-28 09:34] LABS: MANUAL DIFF FLAG NO
[2025-03-28 09:53] LABS: Basophils Percent Auto 0.4 % (0-2); Eosinophils Absolute Auto 0.1 X10*3/uL (0.0-0.4); Eosinophils Percent Auto 1.4 % (0-4); Hematocrit 41.7 % (37.0-47.0); Hemoglobin 13.3 g/dl (12.0-16.0); Imm Gran Abs Auto 0.02 X10*3/uL (0.00-0.03); Imm Gran Pct Auto 0.3 % (0.0-0.4); Lymphocytes Absolute Auto 2.3 X10*3/uL (1.2-4.9); Lymphocytes Percent Auto 33.2 % (20-40); Mean Corpuscular HGB Conc 31.9 g/dl (31.0-35.0); Mean Corpuscular Hemoglobin 26.1 pg (27.0-33.0); Mean Corpuscular Volume 81.8 fL (80.0-98.0); Mean Platelet Volume 10.5 fL (9.4-12.3); Monocytes Absolute Auto 0.5 X10*3/uL (0.1-1.2); Monocytes Percent Auto 6.8 % (2-11); Neutrophils Percent Auto 57.9 % (45-73); Platelet Count 201 X10*3/uL (160-400); Red Cell Distribution Width 15.1 % (11.0-16.0)
[2025-03-28 10:14] LABS: Appearance Urine Clear; Color Urine Yellow; Glucose Urine UA >=1000 mg/dL (Negative); Leukocyte Esterase Urine Negative (Negative); Nitrite Urine Negative (Negative); PH 5.5 (5.0-9.0); Specific Gravity - Urine >= 1.030 (1.005-1.025); UMIC TRIGGER UACC YES; Urine Blood Negative (Negative); Urine Ketones Negative (Negative); Urine Protein Negative (Neg-Trace)
[2025-03-28 10:24] LABS: Bacteria Urine None Seen (None Seen); Hyaline Casts Urine 0-2 /LPF (0-2); RBC Urine 0-2 /HPF (0-2); Squamous Epithelial Cell Urine 0-2 /HPF (0-2); WBC Urine 0-5 /HPF (0-5)
[2025-03-28 10:29] LABS: Estimated Average Glucose 146 mg/dL; Hemoglobin A1c % 6.7 % (<6.0); Total Hemoglobin (HGBA1C) 3579.3903 umol/L
[2025-03-28 10:51] LABS: Alanine Aminotransferase 17 U/L (0-31); Albumin Level 4.3 g/dL (3.5-5.0); Alkaline Phosphatase 121 U/L (39-117); Anion Gap 11 (12-20); Aspartate Amino Transferase 24 U/L (5-31); Bilirubin Total 0.7 mg/dL (0.0-1.0); Blood Urea Nitrogen 19 mg/dL (9-16); Calcium 9.1 mg/dL (8.4-10.2); Carbon Dioxide 23 mmol/L (22-29); Chloride 108 mmol/L (96-108); Cholesterol 183 mg/dL (<200); Estimated Glomerular Filt Rate > 60; Glucose Fasting 122 mg/dL (60-99); HDL Cholesterol 63 mg/dL (>40); LDL Cholesterol Calculated 103 mg/dL (<100); Potassium 4.1 mmol/L (3.3-5.1); Sodium 138 mmol/L (135-145); Triglycerides 89 mg/dL (<150)
[2025-03-28 10:54] LABS: TSH reflex Free T4 1.55 uIU/mL (0.32-4.0); Vitamin D 25-OH Total 39.7 ng/mL (>30)
[2025-03-28 11:25] LABS: Creatinine Urine 67.26 mg/dL; Microalbum/Creatinine Ratio Ur 17.8 ug/mg cr (<30)
[2025-03-28 11:40] LABS: Folate 11.4 ng/mL (> or = 4.0); Vitamin B12 402 pg/mL (200-900)
== END 2025-03-28 09:14 | disposition home or self-care (01) ==
LOC: HO.LAB 09:13
PROVIDERS: PCP Internal Medicine; Visit Provider Internal Medicine
DX: E11.9 Type 2 diabetes mellitus without complications (principal); D64.9 Anemia, unspecified; E78.00 Pure hypercholesterolemia, unspecified; E55.9 Vitamin D deficiency, unspecified; E53.8 Deficiency of other specified B group vitamins
CPT/HCPCS: 36415; 80053; 80061; 81001; 81003; 82043; 82306; 82570; 82607; 82746; 83036; 84443; 85025

== ENCOUNTER 2025-03-31 14:39 | Outpatient (AMB) | payer MEDICARE, MEDICAID, SELFPAY ==
[2025-03-31 14:42] VITALS: BP 130/88; PULSE 73; TEMP 36.3; O2SAT 97; BMI 34.0
--- NOTE | 2025-03-31 14:42 | A.OFFPC_ITS ---
Vital Signs 03/31/25 14:42 Height 5 ft 5 in Weight 204 lb 4 oz BMI 34.0 BP 130/88 Blood Pressure Location Lt brachial Position Sitting Pulse 73 Pulse Source Pulse Oximeter Temp 97.3 F Temp Source Temporal Artery Scan Pulse Oximetry (%) 97 Oxygen Delivery Method Room Air Intake Visit Reasons: 3 Month F/U Allergies egg [EGG] Allergy (Intermediate, Verified 03/31/25 15:07) VOMITING oxycodone [OXYCODONE] Allergy (Intermediate, Verified 03/31/25 15:07) NAUSEA/NIGHTMARES Penicillins [PCN] Allergy (Intermediate, Verified 03/31/25 15:07) RASH tramadol [TRAMADOL] Allergy (Intermediate, Verified 03/31/25 15:07) ITCHING acetaminophen [Percocet] Allergy (Unknown, Verified 03/31/25 15:07) none codeine Allergy (Unknown, Verified 03/31/25 15:07) nightmares Medication List - Last Reconciled 03/31/25 by Dwayne Stone MD acetaminophen 650 mg (2 x 325 mg) PO Q6H PRN 30 days [adult- pull ups large As directed] albuterol sulfate 90 mcg/actuation 2 puffs inhalation Q6-8H PRN 90 days aspirin 1 tab PO DAILY 30 days atorvastatin 40 mg PO BEDTIME 90 days blood sugar diagnostic (FreeStyle Lite Strips) 3 times daily blood-glucose meter (FreeStyle [place] Lite kit) As directed blood-glucose sensor (FreeStyle [place] 3 Sensor device) As directed blood-glucose,tavern car attendant,cont (FreeStyle [place] 3 [place]) As directed cane As directed cholecalciferol (vitamin D3) (Vitamin D3) 50 mcg PO DAILY clotrimazole 1% 1 appl See Protocol topical BID 30 days docusate sodium 100 mg PO BID 30 days empagliflozin (Jardiance) 25 mg PO QAM 90 days fluticasone furoate-vilanterol 200-25 mcg/dose (Breo Ellipta) 1 inh inhalation DAILY 30 days insulin glargine 10 units (0.1 mL) subcut DAILY 30 days lisinopril 5 mg PO DAILY 90 days metformin 1,000 mg PO BID 30 days montelukast 10 mg PO DAILY 90 days omalizumab (Xolair) 300 mg subcut Q2W omeprazole 20 mg PO DAILY 90 days pen needle, diabetic (BD Ultra-Fine Pippa Pen Needle) As directed [RECLINER As directed] sennosides (Senna Lax) 8.6 mg PO BEDTIME 30 days sertraline 150 mg (3 x 50 mg) PO DAILY 30 days Shower Chair As directed tirzepatide (Mounjaro) 5 mg (0.5 mL) subcut QWEEK 28 days trazodone 50 mg PO BEDTIME MRX1 PRN 30 days underpads As directed [wipes As directed] Tobacco use date assessed: 03/31/25 Dental Screening Dental Screen Date: 12/28/24 Did you have a dental visit in the last 12 months?: Yes Did you have a dental problem in the last 6 months where you did not have access to dental care?: No Was dental information given to patient?: Patient has dentist HPI 3 Month F/U HPI Details Patient comes in today for follow-up visit States that she feels okay She denies any headaches or dizziness Denies any chest pains, no shortness of breath No nausea/vomiting, no abdominal pain No change in bowel habits noted Needs several of her Rx refilled; she is also requesting for Rx for a raised toilet seat with handles She had her follow-up labs done a few days ago - to discuss her results Patient is also requesting for referral again to see rheumatology; would also like to get a referral for her yearly gynecology exam and pap smear as well - states that she missed her gynecology exam over the past couple of years [facility] Medical History Cerebellar ataxia Primary osteoarthritis of left knee Constipation Contusion of left knee, sequela Muscle strain of right shoulder region Candidal intertrigo Meniere's disease Memory impairment Arthritis Fibromyalgia Diabetic acidosis, type I Obesity (BMI 30-39.9) Depression Anxiety Insomnia Iron deficiency Vitamin D deficiency Osteoarthrosis GERD without esophagitis Allergic rhinitis Pure hypercholesterolemia Diabetes mellitus Benign essential hypertension Fibromyalgia Asthma Obesity Dyslipidemia Hypertension 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 Maternal Grandmother Breast cancer Social History Household Members: Family Housing: Apartment Do you presently have visiting nurse or other home services: No Alcohol intake: never Patient Tobacco Use Status: Never used Tobacco e-Cigarette/Vaping Use: Never Used Second Hand Smoke Exposure: Yes service: No Current occupational status: disabled Cognitive needs: Yes (cane) Hearing needs: No Vision needs: Yes (glasses) Female Reproductive History Menstrual Age of Menarche: 10 Questionnaire PHQ-9 Over the last 2 weeks, how often have you been bothered by any of the following problems? 1. Little interest or pleasure in doing things: not at all 2. Feeling down, depressed, or hopeless: not at all 3. Trouble falling or staying asleep, or sleeping too much: nearly every day 4. Feeling tired or having little energy: not at all 5. Poor appetite or overeating: not at all 6. Feeling bad about yourself - or that you are a failure or have let yourself or your family down: not at all 7. Trouble concentrating on things, such as reading the newspaper or watching television: not at all 8. Moving or speaking so slowly that other people could have noticed. Or the opposite - being so fidgety or restless that you have been moving around a lot more than usual: more than half the days 9. Thoughts that you would be better off or of hurting yourself in some way: not at all Total score: 5 Depression Screening Interpretation: Positive Depression Screening Follow-up: E xisting condition and In treatment Depression Screening Done: Yes 99222 - PHQ-9 Billing: Yes Source: Developed by Drs. Kory Jerez, Nina Minaya, Basilio Peterson and colleagues, with an educational sheldon from [employer]. Thrive Questionnaire Date Thrive assessed: 03/31/25 I am a: Patient What is your living situation today?: I have a steady place to live Within the past 12 months, did the food you bought not last and you didn't have the money to get more?: Never true Within the past 12 months, did you worry whether your food would run out before you got money to buy more?: Never true Do you have trouble paying for medicines?: No Do you have trouble getting transportation to medical appointments?: No Do you have trouble paying your heating and electricity bill?: I choose not to answer this question Do you have trouble taking care of your child, family member or friend?: No Do you have trouble with day-to-day activities such as bathing, preparing meals, shopping, managing finances, etc.?: No Are you currently unemployed and looking for a job?: No Are you interested in more education?: No Please select the resources that you would like help with: None Currently or been in a relationship where the following occur: I choose not to answer THRIVE Score: 0 AUDIT C Alcohol Use Questionnaire (AUDIT-C) 1. How often do you have a drink containing alcohol?: Never 3. How often do you have six or more drinks on one occasion?: Never Total Score: 0 Score Reviewed/Action Taken: Yes RACHAEL-7 AMB Questionnaire RACHAEL-7 Date RACHAEL - 7 assessed: 12/28/24 Feeling nervous, anxious, or on edge: 0 = Not at all Not being able to stop or control worryin = Not at all Worrying too much about different things: 0 = Not at all Trouble relaxin = Not at all Being so restless that it is hard to sit still: 0 = Not at all Becoming easily annoyed or irritable: 0 = Not at all Feeling afraid as if something awful might happen: 0 = Not at all Total RACHAEL-7 score (0-4 normal; 5-9 mild; 10-14 moderate; 15-21 severe): 0 Source: Developed by Drs. Kory Jerez, Nina Minaya, Basilio Peterson and colleagues, with an educational sheldon from [employer]. Review of Systems Const Denies chills, Reports difficulty sleeping, Reports fatigue, Denies fever(s) and Denies headache(s) ENT Denies dysphagia, Denies dizziness, Denies otalgia, Denies headache(s), Denies neck pain, Denies odynophagia and Denies sore throat Card Denies chest pain, Denies irregular heart rhythm, Denies palpitations and Denies dyspnea Resp Denies chest congestion, Denies cough and Denies dyspnea GI Denies abdominal pain, Denies constipation, Denies dysphagia, Denies heartburn, Denies diarrhea, Denies nausea, Denies odynophagia and Denies vomiting Denies hematuria, Denies difficulty voiding, Denies dysuria, Denies urinary incontinence and Denies urinary urgency Musc Reports abnormal gait (unsteady), Reports back pain (over the lower back), Reports myalgias (diffuse), Reports arthralgias (involving multiple joints, especially over her L knee and R shoulder) and Denies neck pain Skin/Breast Details: (+) painful corns on the soles of both feet Denies rash Neuro Reports abnormal gait (unsteady), Denies dizziness and Denies headache(s) Endo Reports fatigue and Denies palpitations Physical exam (Primary Care) Vital Signs: Last Vital Signs Temp 97.3 F 03/31/25 14:42 Pulse 73 03/31/25 14:42 BP 130/88 03/31/25 14:42 Pulse Ox 97 03/31/25 14:42 Oxygen Delivery Method Room Air 03/31/25 14:42 BMI result Body Mass Index 34.0 Tobacco/Smoking Status: Tobacco use Status Tobacco use date assessed 03/31/25 03/31/25 14:48 Patient Tobacco Use Status Never used Tobacco 03/31/25 14:48 e-Cigarette/Vaping Use Never Used 03/31/25 14:48 PHQ-9: PHQ-9 Score PHQ-9: Total score 5 03/31/25 15:09 Depression Screening Interpretation: Positive Depression Screening Follow-up: Existing condition and In treatment Thrive Assessment: Date of Thrive Assessment Date Thrive assessed 03/31/25 03/31/25 14:48 Currently or been in a relationship where the following occur: I choose not to answer Const General: no acute distress and alert HENMT Ears: TM's normal bilaterally and EAC's normal Throat: Yes posterior oropharynx normal and Yes tonsils normal (no TP congestion noted) Neck Neck: Yes supple and No lymphadenopathy Thyroid: Thyroid normal Resp Auscultation: clear to auscultation bilaterally, no rales and no wheezes Cardio Rate: regular rate Rhythm: regular rhythm Heart sounds: no murmurs GI Palpation (GI): Soft to palpation and nontender Auscultation: normal bowel sounds General: Yes no CVA tenderness Back/Spine/Pelvis Back: no CVA tenderness Thoracic/Lumbar Spine: paraspinal muscle tenderness bilaterally in the lower thoracic, in the upper lumbar, in the mid lumbar and in the lower lumbar and lumbar spinal tenderness Skin Rashes: no rashes Extrem Other: (+) tender thickened calluses noted over the soles of both feet General: Yes no clubbing, cyanosis or edema Right upper extremity: shoulder/upper arm Details: tenderness Location: of the A-C joint and of the scapula; no swelling Left upper extremity: elbow/forearm Details: tenderness; no swelling Right lower extremity: knee Details: tenderness Results Reviewed Results Reviewed: Laboratory Tests 03/28/25 03/28/25 09:27 09:33 WBC 7.0 Hgb 13.3 Hct 41.7 Plt Count 201 Sodium 138 Potassium 4.1 Creatinine 0.64 Estimated GFR > 60 Fasting Glucose 122 H Hemoglobin A1c % 6.7 H Calcium 9.1 D AST 24 ALT 17 Triglycerides 89 Cholesterol 183 LDL Cholesterol, Calc 103 H HDL Cholesterol 63 Vitamin B12 402 25-OH Vitamin D Total 39.7 TSH 1.55 Ur Specific [place] >= 1.030 H Urine Protein Negative Urine Glucose (UA) >=1000 H Urine Blood Negative Urine Nitrite Negative Ur Leukocyte Esterase Negative Microalb/Creat Ratio 17.8 Coding Level of Care Code Est Pt Level 4 (12794) Diagnoses Type 2 diabetes mellitus without complication, with long-term current use of insulin E11.9; Z79.4 Diabetes mellitus complication status: without complication Diabetes 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 research 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 insulin use: with fpc use Diabetes mellitus type: type 2 Pure hypercholesterolemia E78.00 Benign essential hypertension I10 Cerebellar ataxia G11.9 GERD without esophagitis K21.9 Moderate persistent asthma without complication J45.40 Asthma complication type: uncomplicated Asthma persistence: persistent Asthma severity: moderate Primary osteoarthritis, unspecified site M19.91 Osteoarthritis location: unspecified site Osteoarthritis type: primary Primary osteoarthritis of left knee M17.12 Allergic rhinitis, unspecified seasonality, unspecified trigger J30.9 Allergic rhinitis seasonality: unspecified Allergic rhinitis trigger: unspecified Vitamin D deficiency E55.9 Constipation, unspecified constipation type K59.00 Constipation type: unspecified constipation type Fibromyalgia M79.7 Insomnia, unspecified type G47.00 Insomnia type: unspecified Anxiety F41.9 MDD (major depressive disorder), recurrent episode, moderate F33.1 Obesity (BMI 30-39.9) E66.9 Cervical cancer screening Z12.4 Additional Codes PHQ-9 - 77564 - PHQ-9 Billing: Yes ([id number]) Assessment & Plan Assessment & Plan (1) Diabetes mellitus: Code(s): E11.9 - Type 2 diabetes mellitus without complications Category: Medical Qualifiers: Diabetes mellitus complication status: without complication Diabetes mellitus fpc insulin use: with senior research engineer use Diabetes mellitus type: type 2 Qualified Code(s): E11.9 - Type 2 diabetes mellitus without complications; Z79.4 - 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 Plan: Her HgbA1c was at 6.7% on her labs done a few days ago (was previously at 6.3% back in September 2024) - goal is least <7.0% but ideally <6.5% Reinforced diabetic diet Continue Metformin 1000 mg BID, Jardiance 25 mg QD and Mounjaro 7.5 mg SQ once a week Her Lantus was held by endocrinology last year due to her well-controlled diabetes Follow-up with endocrinology as scheduled (2) Pure hypercholesterolemia: Code(s): E78.00 - Pure hypercholesterolemia, unspecified Category: Medical Plan: Results of her labs done a few days ago reviewed and discussed with patient Reinforce low-cholesterol diet Continue Atorvastatin 40 mg QD Will recheck her labs and fasting lipids in 3 months for follow-up (3) Benign essential hypertension: Code(s): I10 - Essential (primary) hypertension Category: Medical Plan: Reinforced low sodium diet - goal is systolic BP of at least 120 to 130 mm or less Continue Lisinopril 5 mg QD (4) Cerebellar ataxia: Code(s): G11.9 - Hereditary ataxia, unspecified Category: Medical Plan: She was diagnosed by neurology in September 2022 with cerebellar ataxia, when she was referred for further evaluation of her recurrent dizziness MRI of the brain done in September 2022 revealed (+) scattered nonspecific white matter T2 hyperintensities in both cerebral hemispheres with no evidence for acute or subacute cerebral ischemia, hemorrhage, extra-axial fluid collection, space-occupying process, mass effect or hydrocephalus Follow up with neurology as scheduled (5) GERD without esophagitis: Code(s): K21.9 - Gastro-esophageal reflux disease without esophagitis Category: Medical Plan: Dietary restrictions reinforced Continue Omeprazole 20 mg QD (6) Asthma: Code(s): J45.909 - Unspecified asthma, uncomplicated Category: Medical Qualifiers: Asthma complication type: uncomplicated Asthma persistence: persistent Asthma severity: moderate Qualified Code(s): J45.40 - Moderate persistent asthma, uncomplicated Plan: Patient started her Xolair injections at 300 mg SQ every 2 weeks a few months ago and that her asthma has been much better controlled lately Continue Breo Ellipta 225 mcg 1 inhalation QD and Albuterol HFA 1-2 inhalations every 6 hours PRN Follow-up with pulmonary as scheduled (7) Osteoarthrosis: Code(s): M19.90 - Unspecified osteoarthritis, unspecified site Category: Medical Qualifiers: Osteoarthritis location: unspecified site Osteoarthritis type: primary Qualified Code(s): M19.91 - Primary osteoarthritis, unspecified site Plan: X-rays of both hands done a couple of years ago showed (+) mild OA changes in the right hand; left hand x-rays were normal except for an old metacarpal fracture that has since healed She was diagnosed with polyarthralgia by Rheumatology a couple of years ago and is currently requesting for a referral again to rheumatology as she has not been seen in a while - referral to rheumatology placed She is encouraged again on regular hand exercises to help minimize her hand stiffness and pain Continue Tramadol 50 mg TID PRN and Tylenol Arthritis 650 mg 3 times a day as needed, Piroxicam 10 mg once a day with food as needed and Diclofenac 1% topical Gel TID PRN Follow up with orthopedics as scheduled (8) Primary osteoarthritis of left knee: Code(s): M17.12 - Unilateral primary osteoarthritis, left knee Category: Medical Plan: X-rays of the left knee done last year revealed (+) moderate degenerative changes Will consider orthopedic referral if her knee pain gets worse (9) Allergic rhinitis: Code(s): J30.9 - Allergic rhinitis, unspecified Category: Medical Qualifiers: Allergic rhinitis seasonality: unspecified Allergic rhinitis trigger: unspecified Qualified Code(s): J30.9 - Allergic rhinitis, unspecified Plan: Continue Montelukast 10 mg QD, Loratadine 10 mg QD PRN and Fluticasone 50 mcg nasal spray QD PRN (10) Vitamin D deficiency: Code(s): E55.9 - Vitamin D deficiency, unspecified Category: Medical Plan: Continue Vitamin D3 2000 units QD (11) Constipation: Code(s): K59.00 - Constipation, unspecified Category: Medical Qualifiers: Constipation type: unspecified constipation type Qualified Code(s): K59.00 - Constipation, unspecified Plan: Improved; reinforced increased oral fluids and dietary fiber Continue Senna 8.6 mg QD PRN (12) Fibromyalgia: Code(s): M79.7 - Fibromyalgia Category: Medical Plan: Patient is encouraged again on regular exercise and physical activity to help manage her fibromyalgia symptoms Continue Duloxetine 60 mg once a day and Tizanidine 4 mg Q HS PRN Continue Pregabalin 50 mg BID - she is tolerating Lyrica so far (she was taken off Gabapentin previously as she was concerned that the medication was affecting her memory) (13) Insomnia: Code(s): G47.00 - Insomnia, unspecified Category: Medical Qualifiers: Insomnia type: unspecified Qualified Code(s): G47.00 - Insomnia, unspecified Plan: Sleep hygiene reinforced Continue Trazodone 50 mg Q HS PRN (14) Anxiety: Code(s): F41.9 - Anxiety disorder, unspecified Category: Medical Plan: Continue Lorazepam 0.5 mg Q HS PRN and Hydroxyzine 25 mg 3 times a day as needed (15) MDD (major depressive disorder), recurrent episode, moderate: Code(s): F33.1 - Major depressive disorder, recurrent, moderate Category: Medical Plan: Continue Bupropion ER 300 mg once a day Follow-up with Psychiatry as scheduled (16) Obesity (BMI 30-39.9): Code(s): E66.9 - Obesity, unspecified Category: Medical Plan: Reinforced diet; exercise and weight loss are unrealistic given patient's physical issues and multiple comorbidities (17) Cervical cancer screening: Code(s): Z12.4 - Encounter for screening for malignant neoplasm of cervix Category: Medical Plan: Per request[facility] and pap smear Plan Follow up in 3 months Orders: Orders Complete Blood Count Auto Diff 3 Months D64.9 - Anemia, unspecified Lipid Panel 3 Months E78.00 - Pure hypercholesterolemia, unspecified Comprehensive [place]. Panel Fast 3 Months E78.00 - Pure hypercholesterolemia, unspecified TSH reflex Free T4 3 Months E78.00 - Pure hypercholesterolemia, unspecified Hemoglobin A1c 3 Months E11.9 - Type 2 diabetes mellitus without complications UA CC w/rflx Micro + Cult 3 Months R30.0 - Dysuria Referrals ACCOUNT CLASSIFICATION CLERK Referral Z12.4 - Encounter for screening for malignant neoplasm of cervix Rheumatology Referral M25.50 - Pain in unspecified joint Medications: New [RAISED TOILET SEAT with HANDLES] As directed 2 ea 0RF G11.9 - Hereditary ataxia, unspecified, M17.12 - Unilateral primary osteoarthritis, left knee Changed From docusate sodium 100 mg PO BID 30 days 60 caps 0RF To docusate sodium 100 mg PO BID PRN 60 caps 5RF constipation 30 days Refilled clotrimazole 1% 1 appl See Protocol topical BID 5 grams 0RF 30 days atorvastatin 40 mg PO BEDTIME 90 tabs 1RF 90 days omeprazole 20 mg PO DAILY 90 caps 3RF 90 days K21.9 - Gastro-esophageal reflux disease without esophagitis fluticasone furoate-vilanterol 200-25 mcg/dose (Breo Ellipta) 1 inh inhalation DAILY 1 ea 6RF 30 days J45.40 - Moderate persistent asthma, uncomplicated acetaminophen 650 mg (2 x 325 mg) PO Q6H PRN 60 tabs 3RF Headache/Pain Mild Scale (1-3) 30 days
== END 2025-03-31 15:24 | disposition home or self-care (01) ==
LOC: HO.HMCH 14:40
PROVIDERS: PCP Internal Medicine; Visit Provider Internal Medicine
DX: E11.9 Type 2 diabetes mellitus without complications (principal); Z79.4 Long term (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; G11.9 Hereditary ataxia, unspecified; F33.1 Major depressive disorder, recurrent, moderate; E78.00 Pure hypercholesterolemia, unspecified; I10 Essential (primary) hypertension; K21.9 Gastro-esophageal reflux disease without esophagitis; J45.40 Moderate persistent asthma, uncomplicated; M17.12 Unilateral primary osteoarthritis, left knee; J30.9 Allergic rhinitis, unspecified; E55.9 Vitamin D deficiency, unspecified

== ENCOUNTER → 2025-03-31 14:39 | Outpatient (BNVA) | payer OTHER, SELFPAY | PROVIDERS: PCP Internal Medicine; Visit Provider Internal Medicine | DX: E11.9 Type 2 diabetes mellitus without complications (principal); E78.00 Pure hypercholesterolemia, unspecified; I10 Essential (primary) hypertension; G11.9 Hereditary ataxia, unspecified; K21.9 Gastro-esophageal reflux disease without esophagitis; J45.40 Moderate persistent asthma, uncomplicated; M19.041 Primary osteoarthritis, right hand; M17.12 Unilateral primary osteoarthritis, left knee; J30.9 Allergic rhinitis, unspecified; E55.9 Vitamin D deficiency, unspecified; K59.00 Constipation, unspecified; M79.7 Fibromyalgia; G47.00 Insomnia, unspecified; F41.9 Anxiety disorder, unspecified; F33.1 Major depressive disorder, recurrent, moderate; E66.9 Obesity, unspecified; Z68.34 Body mass index [BMI] 34.0-34.9, adult; Z79.4 Long term (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; Z79.84 Long term (current) use of oral hypoglycemic drugs; Z79.85 Long-term (current) use of injectable non-insulin antidiabetic drugs; Z79.891 Long term (current) use of opiate analgesic; Z79.899 Other long term (current) drug therapy; Z13.30 Encounter for screening examination for mental health and behavioral disorders, unspecified | CPT/HCPCS: 96127; 99212 ==

== ENCOUNTER 2025-04-04 11:10 | Outpatient (REF) | payer OTHER, SELFPAY ==
[2025-04-04 11:29] LABS: MANUAL DIFF FLAG NO
[2025-04-04 12:22] LABS: Basophils Absolute Auto 0.1 X10*3/uL (0.0-0.2); Basophils Percent Auto 0.6 % (0-2); Eosinophils Absolute Auto 0.1 X10*3/uL (0.0-0.4); Hematocrit 43.1 % (37.0-47.0); Hemoglobin 13.7 g/dl (12.0-16.0); Imm Gran Abs Auto 0.04 X10*3/uL (0.00-0.03); Imm Gran Pct Auto 0.5 % (0.0-0.4); Lymphocytes Absolute Auto 3.2 X10*3/uL (1.2-4.9); Lymphocytes Percent Auto 40.6 % (20-40); Mean Corpuscular HGB Conc 31.8 g/dl (31.0-35.0); Mean Corpuscular Hemoglobin 25.8 pg (27.0-33.0); Mean Corpuscular Volume 81.3 fL (80.0-98.0); Monocytes Absolute Auto 0.5 X10*3/uL (0.1-1.2); Neutrophils Absolute Auto 4.1 x10*3/uL (2.0-8.3); Neutrophils Percent Auto 51.3 % (45-73); Platelet Count 242 X10*3/uL (160-400); Red Cell Distribution Width 15.1 % (11.0-16.0)
[2025-04-04 12:43] LABS: Estimated Average Glucose 146 mg/dL; Hemoglobin A1C 181.6305 umol/L; Hemoglobin A1c % 6.7 % (<6.0); Total Hemoglobin (HGBA1C) 3669.2045 umol/L
[2025-04-04 12:52] LABS: Alanine Aminotransferase 23 U/L (0-31); Albumin Level 4.7 g/dL (3.5-5.0); Alkaline Phosphatase 120 U/L (39-117); Anion Gap 11 (12-20); Aspartate Amino Transferase 26 U/L (5-31); Bilirubin Total 0.6 mg/dL (0.0-1.0); Blood Urea Nitrogen 18 mg/dL (9-16); Calcium 9.5 mg/dL (8.4-10.2); Carbon Dioxide 26 mmol/L (22-29); Chloride 105 mmol/L (96-108); Estimated Glomerular Filt Rate > 60; Glucose Fasting 108 mg/dL (60-99); Potassium 4.1 mmol/L (3.3-5.1); Sodium 138 mmol/L (135-145); Total Protein 7.4 g/dL (6.5-8.0)
[2025-04-04 12:54] LABS: Appearance Urine Clear; Color Urine Yellow; Glucose Urine UA >=1000 mg/dL (Negative); Leukocyte Esterase Urine Negative (Negative); Nitrite Urine Negative (Negative); Specific Gravity - Urine >= 1.030 (1.005-1.025); UMIC TRIGGER UACC YES; Urine Blood Negative (Negative); Urine Ketones Negative (Negative); Urine Protein Negative (Neg-Trace)
[2025-04-04 13:01] LABS: Bacteria Urine None Seen (None Seen); Hyaline Casts Urine 0-2 /LPF (0-2); RBC Urine 0-2 /HPF (0-2); Squamous Epithelial Cell Urine 0-2 /HPF (0-2); WBC Urine 0-5 /HPF (0-5)
[2025-04-04 13:09] LABS: TSH reflex Free T4 1.93 uIU/mL (0.32-4.0); Vitamin D 25-OH Total 46.3 ng/mL (>30)
[2025-04-07 00:34] LABS: TS Negative Control Passed; TS Panel A 0; TS Panel B 0; TS Positive Control Passed; TSpotTB Negative (Negative)
== END 2025-04-04 11:11 | disposition home or self-care (01) ==
LOC: HO.LAB 11:10
PROVIDERS: PCP Internal Medicine; Visit Provider Internal Medicine
DX: E78.00 Pure hypercholesterolemia, unspecified (principal); Z11.1 Encounter for screening for respiratory tuberculosis; D64.9 Anemia, unspecified; E11.9 Type 2 diabetes mellitus without complications; E55.9 Vitamin D deficiency, unspecified
CPT/HCPCS: 36415; 80053; 81001; 82306; 83036; 84443; 85025; 86481

== ENCOUNTER 2025-04-13 09:44 | Outpatient (AMB) | payer OTHER, SELFPAY ==
--- NOTE | 2025-04-13 07:52 | A.OFFVIS_ITS ---
Vital Signs 04/13/25 09:49 Height 5 ft 5 in Weight 209 lb 10.554 oz BMI 34.9 BP 98/60 Blood Pressure Location Rt brachial Position Sitting Pulse 72 Pulse Source Pulse Oximeter Temp 97 F Pulse Oximetry (%) 97 Oxygen Delivery Method Room Air Intake Visit Reasons: DM Intake Note: Patient presents today for a follow-up on Type 2 Diabetes Mellitus: Last Diabetic eye exam was on: 03/2025 Last Podiatry exam was on: Patient does not see a Gambling Box Person Most recent HbA1c: 6.7%, 04/04/2025 Random Glucose- 158 mg/dL, Today Allergies egg [EGG] Allergy (Intermediate, Verified 04/13/25 09:50) VOMITING oxycodone [OXYCODONE] Allergy (Intermediate, Verified 04/13/25 09:50) NAUSEA/NIGHTMARES Penicillins [PCN] Allergy (Intermediate, Verified 04/13/25 09:50) RASH tramadol [TRAMADOL] Allergy (Intermediate, Verified 04/13/25 09:50) ITCHING acetaminophen [Percocet] Allergy (Unknown, Verified 04/13/25 09:50) none codeine Allergy (Unknown, Verified 04/13/25 09:50) nightmares Medication List - Last Reconciled 04/13/25 by Ximena Pham NP acetaminophen 650 mg (2 x 325 mg) PO Q6H PRN 30 days [adult- pull ups large As directed] albuterol sulfate 90 mcg/actuation 2 puffs inhalation Q6-8H PRN 90 days aspirin 1 tab PO DAILY 30 days atorvastatin 40 mg PO BEDTIME 90 days blood sugar diagnostic (FreeStyle Lite Strips) 3 times daily blood-glucose meter (FreeStyle [place] Lite kit) As directed blood-glucose sensor (FreeStyle [place] 3 Sensor device) As directed blood-glucose,workers compensation specialist,cont (FreeStyle [place] 3 [place]) As directed cane As directed cholecalciferol (vitamin D3) (Vitamin D3) 50 mcg PO DAILY clotrimazole 1% 1 appl See Protocol topical BID 30 days docusate sodium 100 mg PO BID PRN 30 days empagliflozin (Jardiance) 25 mg PO QAM 90 days fluticasone furoate-vilanterol 200-25 mcg/dose (Breo Ellipta) 1 inh inhalation DAILY 30 days insulin glargine 10 units (0.1 mL) subcut DAILY 30 days lisinopril 5 mg PO DAILY 90 days metformin 1,000 mg PO BID 30 days montelukast 10 mg PO DAILY 90 days omalizumab (Xolair) 300 mg subcut Q2W omeprazole 20 mg PO DAILY 90 days pen needle, diabetic (BD Ultra-Fine Pippa Pen Needle) As directed [RAISED TOILET SEAT with HANDLES As directed] [RECLINER As directed] [RECLINER CHAIR As directed] sennosides (Senna Lax) 8.6 mg PO BEDTIME 30 days sertraline 150 mg (3 x 50 mg) PO DAILY 30 days Shower Chair As directed tirzepatide (Mounjaro) 5 mg (0.5 mL) subcut QWEEK 28 days trazodone 50 mg PO BEDTIME MRX1 PRN 30 days underpads As directed [wipes As directed] HPI Comments Details: Patient female with type 2 diabetes who presents for diabetes management. HgbA1C 01/12/25 6.7%. She was last seen 01/12/2025 by myself and more recently by the Elizabeth Scott CDE for instruction on freestyle [place]rett 3+. Previous medications tried: Intolerant of Trulicity and Ozempic due to gastric upset and pain. 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 Ophthalmology evaluation:03/02 -no retinopathy Has eye surgery scheduled 04/18/25 Has HLD LDL 51 09/12/24 on Statin 03/2025 103 Denies history of CAD, CVA or PVD Denies chest pain, dyspnea or claudication symptoms. Breathing is much better since started on new inhaler by Pulmonary Pathology Teacher - CDE education: in the past Other specialists: denies MASH screen Fibrosis-4 (Fib-4) Index for liver fibrosis (calculated on lab work done: 04/01) [1.1 ] points Advanced fibrosis [excluded ] Approximate Fibrosis stage Dasha [0-1 ] *Use with caution in patients <35 or >65 years old, as the score has been shown to be less reliable in these patients. Prior Imaging [08/[address]] LIVER, GALLBLADDER, AND BILIARY TREE: The liver is normal in size, shape, and attenuation. There is a small calcification in the left lobe of the liver. No other focal hepatic lesion or biliary ductal dilatation is present. The gallbladder is unremarkable with no evidence of radiopaque gallstones, gallbladder wall thickening, or obvious pericholecystic inflammatory changes. Action Plan: [] rescreen two years from date of screening labs[04/03] [facility] Medical History Cerebellar ataxia Primary osteoarthritis of left knee Constipation Contusion of left knee, sequela Muscle strain of right shoulder region Candidal intertrigo Meniere's disease Memory impairment Arthritis Fibromyalgia Diabetic acidosis, type I Obesity (BMI 30-39.9) Depression Anxiety Insomnia Iron deficiency Vitamin D deficiency Osteoarthrosis GERD without esophagitis Allergic rhinitis Pure hypercholesterolemia Diabetes mellitus Benign essential hypertension Fibromyalgia Asthma Obesity Dyslipidemia Hypertension senior care (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 Diabetic nephropathy associated with type 2 diabetes mellitus Diabetes type 2, uncontrolled Surgical History Hx of hernia repair History of loop electrical excision procedure (LEEP) Family History Father Diabetes Mother No problems noted. Maternal Grandmother Breast cancer Social History Household Members: Family Housing: Apartment Do you presently have visiting nurse or other home services: No Alcohol intake: never Patient Tobacco Use Status: Never used Tobacco e-Cigarette/Vaping Use: Never Used Second Hand Smoke Exposure: Yes service: No Current occupational status: disabled Cognitive needs: Yes (cane) Hearing needs: No Vision needs: Yes (glasses) Female Reproductive History Menstrual Age of Menarche: 10 Physical Exam Const Other: Absence of Cushingoid features. Absence of acromegalic features. Neck exam reveals nl size thyroid about 15 gms. No thyroid nodules palpable. Heart S1 S2, Reg R/R. No M/R G. Skin exam reveals absence of vitiligo or acanthosis nigricans. No edema Visual exam of foot performed. No ulcerations or open lesions. No inter digit maceration or fissuring. No onychomycosis, no callouses. Sensation intact to monofilament exam. Vibratory sensation is normal with 128 Hz tuning fork. Pulses positive distal Assessment & Plan Assessment & Plan (1) Diabetes mellitus: Code(s): E11.9 - Type 2 diabetes mellitus without complications Category: Medical Qualifiers: Diabetes mellitus type: type 2 Diabetes mellitus assisted insulin use: with assisted use Diabetes mellitus complication status: without complication Qualified Code(s): E11.9 - Type 2 diabetes mellitus without complications; Z79.4 - senior care (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 Plan: 59-year-old type 2 diabetic with micro albuminuria and neuropathy with good glycemic control with some overnight hypoglycemia. Continue all current medications with the exception of the lower basal insulin to 4 units The patient had an opportunity to ask questions regarding treatment plan. The patient expressed understanding and agreement with the above treatment plan. The patient is aware they should contact our office by phone for worsening glucose readings or for any low blood sugars which may warrant a change in diabetes medication. Compliance is encouraged with medications and any followup testing/consults which may have been ordered. Coding Level of Care Code Est Pt Level 4 (94352) Complex EM visit Add On G2211 Diagnoses Type 2 diabetes mellitus without complication, with long-term current use of insulin E11.9; Z79.4 Diabetes mellitus type: type 2 Diabetes mellitus assisted insulin use: with long term care phlebotomist use Diabetes mellitus complication status: without complication Time Spent (min) 30 Comment Time spent reviewing labs/provider notes, face to face, chart doc
[2025-04-13 09:49] VITALS: BP 98/60; PULSE 72; TEMP 36.1; O2SAT 97; BMI 34.9
[2025-04-13 09:57] LABS: Glucose, Whole Blood 158 mg/dL (60-115)
== END 2025-04-13 10:14 | disposition home or self-care (01) ==
LOC: HO.ENCR 09:45
PROVIDERS: PCP Internal Medicine; Visit Provider Nurse Practitioner Adult Health
DX: E11.9 Type 2 diabetes mellitus without complications (principal); Z79.4 Long term (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
CPT/HCPCS: 99214; G2211

== ENCOUNTER → 2025-04-13 09:44 | Outpatient (BNVA) | payer OTHER, SELFPAY | PROVIDERS: PCP Internal Medicine; Visit Provider Nurse Practitioner Adult Health | DX: E11.9 Type 2 diabetes mellitus without complications (principal); Z79.4 Long term (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 | CPT/HCPCS: 82947; 99212 ==

== ENCOUNTER 2025-04-27 12:42 | Outpatient (AMB) | payer OTHER, SELFPAY ==
[2025-04-27 12:44] VITALS: BP 106/70; PULSE 78; TEMP 37.2; O2SAT 96; BMI 34.8
--- NOTE | 2025-04-27 12:44 | AM.OFFWIN_ITS ---
Intake Vital Signs 04/27/25 12:44 Height 5 ft 5 in Weight 209 lb BMI 34.8 BP 106/70 Blood Pressure Location Lt brachial Position Sitting Pulse 78 Pulse Source Pulse Oximeter Temp 99.0 F Temp Source Oral Pulse Oximetry (%) 96 Intake Visit Reasons: EP asthma, fever, headache Patient Tobacco Use Status: Never used Tobacco Allergies egg (EGG) Allergy (Intermediate, Verified 04/27/25 12:50) VOMITING oxycodone (OXYCODONE) Allergy (Intermediate, Verified 04/27/25 12:50) NAUSEA/NIGHTMARES Penicillins (PCN) Allergy (Intermediate, Verified 04/27/25 12:50) RASH tramadol (TRAMADOL) Allergy (Intermediate, Verified 04/27/25 12:50) ITCHING acetaminophen (Percocet) Allergy (Unknown, Verified 04/27/25 12:50) none codeine Allergy (Unknown, Verified 04/27/25 12:50) nightmares Do you need a note to return to daycare/school/sports/work: No HPI HPI Comments History of Present Illness Details 59 y/o Female patient who presents to [facility] walk in clinic with c/o URI symptoms for few days. Pt reports feeling weak on her feet, nausea and vomiting. Pt reports low grade fevers at home. She reports feeling emotional and depressed. [facility] Medical History (Updated 04/27/25 @ 13:40 by Jammie Quezada NP) Acute respiratory disease Cerebellar ataxia Primary osteoarthritis of left knee Constipation Contusion of left knee, sequela Muscle strain of right shoulder region Candidal intertrigo Meniere's disease Memory impairment Arthritis Fibromyalgia Diabetic acidosis, type I Obesity (BMI 30-39.9) Depression Anxiety Insomnia Iron deficiency Vitamin D deficiency Osteoarthrosis GERD without esophagitis Allergic rhinitis Pure hypercholesterolemia Diabetes mellitus Benign essential hypertension Fibromyalgia Asthma Obesity Dyslipidemia Hypertension senior care (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 Diabetic nephropathy associated with type 2 diabetes mellitus Diabetes type 2, uncontrolled Surgical History Hx of hernia repair History of loop electrical excision procedure (LEEP) Family History Father Diabetes Mother No problems noted. Maternal Grandmother Breast cancer Social History Household Members: Family Housing: Apartment Do you presently have visiting nurse or other home services: No Alcohol intake: never Patient Tobacco Use Status: Never used Tobacco e-Cigarette/Vaping Use: Never Used Second Hand Smoke Exposure: Yes service: No Current occupational status: disabled Cognitive needs: Yes (cane) Hearing needs: No Vision needs: Yes (glasses) Female Reproductive History Menstrual Age of Menarche: 10 Review of Systems Const All systems reviewed & are unremarkable except as noted in HPI and below Physical Exam Vital Signs: Last Vital Signs Temp 99.0 F 04/27/25 12:44 Pulse 78 04/27/25 12:44 BP 106/70 04/27/25 12:44 Pulse Ox 96 04/27/25 12:44 BMI result Body Mass Index 34.8 Const General: no acute distress, ill appearing, lethargic and tired appearing Nutritional Appearance: obese Orientation/consciousness: patient oriented x3 and lethargic Limitations: language barrier Resp Effort & Inspection: normal respiratory effort and able to speak in complete sentences Auscultation: no crackles, no rales, no rhonchi and wheezes scattered wheezes Cardio Heart sounds: S1 normal heart sound present and S2 normal heart sound present Neuro General: patient oriented x3 Assessment & Plan Assessment & Plan (1) Acute respiratory disease: Code(s): J06.9 - Acute upper respiratory infection, unspecified Plan: Advised to go to ED for further evaluation. Pt is very emotional, crying in the room, feeling weak and unable to stay awake. She does have a Low grade fever today. Coding Level of Care Code Est Pt Level 4 (02135) Diagnoses Acute respiratory disease J06.9 Time Spent (min) 20
== END 2025-04-27 14:00 | disposition home or self-care (01) ==
PROVIDERS: PCP Internal Medicine; Visit Provider Nurse Practitioner Family
DX: J06.9 Acute upper respiratory infection, unspecified (principal)

== ENCOUNTER → 2025-04-27 12:42 | Outpatient (BNVA) | payer OTHER, SELFPAY | PROVIDERS: PCP Internal Medicine | DX: J06.9 Acute upper respiratory infection, unspecified (principal) | CPT/HCPCS: 99212 ==

== ENCOUNTER 2025-04-27 14:21 | Emergency (ER) | payer OTHER, SELFPAY ==
--- NOTE | ~2025-04-27 | XR_ITS ---
EXAMINATION: XR CHEST CLINICAL INFORMATION: cough, chest tightness COMPARISON: 02/16/2024. 12/08/2020. TECHNIQUE: Frontal view of the chest was obtained. FINDINGS: The cardiac, hilar, and mediastinal contours are normal. The lungs are clear bilaterally. Calcified granuloma in the left upper lobe. No pneumothorax or effusion. No focal osseous or soft tissue abnormality. There are spinal degenerative changes. XR/XR chest 1V IMPRESSION: No active pulmonary disease. Electronically signed by: Gio Watson MD 04/27/2025 03:26 PM EDT
[2025-04-27 14:26] VITALS: BP 126/77; PULSE 79; O2SAT 96
[2025-04-27 14:32] VITALS: BP 133/70; PULSE 81; RESP 16; TEMP 37.2; O2SAT 98; BMI 35.9
--- NOTE | 2025-04-27 14:34 | ECG_ITS ---
Test Reason : CHEST TIGHTNESS Blood Pressure : */* mmHG Vent. Rate : 84 BPM Atrial Rate : 84 BPM P-R Int : 154 ms QRS Dur : 92 ms QT Int : 390 ms P-R-T Axes : 44 6 44 degrees QTcB Int : 460 ms Normal sinus rhythm Normal ECG When compared with ECG of 05-Apr-2024 08:48, No significant change was found Referred By: Generic ED Physician Electronically Signed By: Marvin Ralph
[2025-04-27 14:49] VITALS: BP 103/43; PULSE 77; RESP 22; TEMP 37.4; O2SAT 94
[2025-04-27 15:06] LABS: MANUAL DIFF FLAG NO
[2025-04-27 15:13] LABS: Basophils Percent Auto 0.2 % (0-2); Eosinophils Absolute Auto 0.1 X10*3/uL (0.0-0.4); Eosinophils Percent Auto 0.7 % (0-4); Hematocrit 38.8 % (37.0-47.0); Hemoglobin 12.5 g/dl (12.0-16.0); Imm Gran Abs Auto 0.02 X10*3/uL (0.00-0.03); Imm Gran Pct Auto 0.2 % (0.0-0.4); Lymphocytes Absolute Auto 2.4 X10*3/uL (1.2-4.9); Lymphocytes Percent Auto 28.7 % (20-40); Mean Corpuscular HGB Conc 32.2 g/dl (31.0-35.0); Mean Corpuscular Hemoglobin 25.8 pg (27.0-33.0); Mean Corpuscular Volume 80.2 fL (80.0-98.0); Mean Platelet Volume 10.5 fL (9.4-12.3); Monocytes Absolute Auto 0.8 X10*3/uL (0.1-1.2); Neutrophils Absolute Auto 5.1 x10*3/uL (2.0-8.3); Neutrophils Percent Auto 61.2 % (45-73); Platelet Count 181 X10*3/uL (160-400); Red Blood Count 4.84 X10*6/uL (4.20-5.50); Red Cell Distribution Width 15.1 % (11.0-16.0); White Blood Count 8.4 X10*3/uL (4.8-10.8)
[2025-04-27 15:20] LABS: Alanine Aminotransferase 15 U/L (0-31); Albumin Level 4.2 g/dL (3.5-5.0); Alkaline Phosphatase 94 U/L (39-117); Anion Gap 14 (12-20); Aspartate Amino Transferase 23 U/L (5-31); Bilirubin Total 0.6 mg/dL (0.0-1.0); Blood Urea Nitrogen 14 mg/dL (9-16); Calcium 9.6 mg/dL (8.4-10.2); Carbon Dioxide 25 mmol/L (22-29); Chloride 105 mmol/L (96-108); Creatinine Clr Calc Pharmacy 110.2; Estimated Glomerular Filt Rate > 60; Glucose Random 112 mg/dL (60-115); Sodium 140 mmol/L (135-145); Total Protein 6.8 g/dL (6.5-8.0)
[2025-04-27 15:28] LABS: Troponin-I High Sensitivity < 2.7 ng/L (<3.5-17.0)
[2025-04-27 15:47] LABS: Influenza A PCR NEGATIVE (Negative); Influenza B PCR NEGATIVE (Negative); Resp Syncy Virus RNA Qual PCR NEGATIVE (Negative); SARS COV2 PCR INHOUSE NEGATIVE (Negative)
--- NOTE | 2025-04-27 15:59 | ED_ITS ---
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 (all interactions with this patient were facilitated with an [facility] client support manager) Mode of arrival: EMS Limitations: language barrier (all interactions with this patient were facilitated with an [facility] client support manager) History of Present Illness ED Provider: Queenie Aguilar PA-C HPI narrative: Patient is a 59 year old assigned female at with a history of MDD, cerebellar ataxia, OA, HTN, and DM presenting to the emergency department today with a cough and body aches. Patient states that over the last 5 days she has had a cough with body aches. Patient denies any dizziness, lightheadedness, abdominal pain, nausea, vomiting, fever, chills, blurry vision, double vision, loss of vision, chest pain, difficulty breathing, shortness of breath, back pain, night sweats, pain with urination, increased urinary frequency, increased urinary urgency, blood in her urine or stool, syncope or a near syncopal episode, recent trauma or falls, bowel incontinence, bladder incontinence, or any other complaints at this time. Patient states that she is feeling significantly better after getting solu- medrol and a duoneb from the ambulance crew. Onset (ago): day(s) (5) Relieving factors: none Exacerbating factors: none Associated symptoms: cough Treatments prior to arrival: other (duoneb, solu-medrol) Related Data Home Medications ?Medication ?Instructions ?Recorded ?Confirmed omalizumab 300 mg/2 mL 300 mg subcut Q2W 01/01/25 0 04/13/25 subcutaneous syringe (Xolair) Previous Rx's ?Medication ?Instructions ?Recorded cholecalciferol (vitamin D3) 50 50 mcg PO DAILY #90 ca ps 04/27/24 mcg (2,000 unit) capsule (Vitamin D3) sennosides 8.6 mg tablet (Senna 8.6 mg PO BEDTIME 30 d ays #30 tabs 04/27/24 Lax) sertraline 50 mg tablet 150 mg (3 x 50 mg) PO DAILY 30 04/27/24 days #90 tabs trazodone 50 mg tablet 50 mg PO BEDTIME MRX1 PRN In somnia 04/27/24 30 days #60 tabs aspirin 81 mg chewable tablet 1 tab PO DAILY 30 days # 30 tabs 05/13/24 blood-glucose meter (FreeStyle #1 ea 05/25/24 [place] Lite kit) blood-glucose sensor (FreeStyle #2 ea 05/26/24 [place] 3 Sensor device) blood-glucose,shoe shiner,cont #1 ea 05/26/24 (FreeStyle [place] 3 [place]) blood sugar diagnostic (FreeStyle #100 ea 05/27/24 Lite Strips) pen needle, diabetic 32 gauge x #50 ea 06/03/24 (BD Ultra-Fine [place] Pen Needle) tirzepatide 5 mg/0.5 mL 5 mg (0.5 mL) subcut QWEEK 2 8 days 09/15/24 subcutaneous pen injector #2 mL (Fer) Shower Chair #1 ea 10/19/24 adult- pull ups large #300 ea 10/19/24 underpads #300 ea 10/19/24 wipes #2 ea 10/19/24 RECLINER #1 ea 12/28/24 lisinopril 5 mg tablet 5 mg PO DAILY 90 days #90 ta bs 12/28/24 montelukast 10 mg tablet 10 mg PO DAILY 90 days #90 t abs 12/28/24 insulin glargine 100 unit/mL (3 10 unit (0.1 mL) subcu t DAILY 30 01/12/25 mL) subcutaneous pen days #3 mL empagliflozin 25 mg tablet 25 mg PO QAM 90 days #90 ta bs 02/23/25 (Jardiance) cane #1 ea 03/09/25 metformin 1,000 mg tablet 1,000 mg PO BID 30 days #60 tabs 03/24/25 RAISED TOILET SEAT with HANDLES #2 ea 03/31/25 acetaminophen 325 mg tablet 650 mg (2 x 325 mg) PO Q6H PRN 03/31/25 Headache/Pain Mild Scale (1-3) 30 days #60 tabs atorvastatin 40 mg tablet 40 mg PO BEDTIME 90 days #90 tabs 03/31/25 clotrimazole 1 % topical cream 1 appl topical BID 30 d ays #5 grams 03/31/25 docusate sodium 100 mg capsule 100 mg PO BID PRN const ipation 30 03/31/25 days #60 caps fluticasone furoate 200 1 inh inhalation DAILY 30 da ys #1 03/31/25 mcg-vilanterol 25 mcg/dose ea inhalation powder (Breo Ellipta) omeprazole 20 mg capsule,delayed 20 mg PO DAILY 90 day s #90 caps 03/31/25 release RECLINER CHAIR #1 ea 04/06/25 albuterol sulfate 90 mcg/actuation 2 puff inhalation Q 6-8H PRN 04/23/25 aerosol inhaler shortness of breath or wheez ing 90 days #3 inhalers azithromycin 250 mg tablet See Rx Instructions PO .COM PLEX #6 04/27/25 tabs prednisone 20 mg tablet 20 mg PO DAILY 7 days #7 tab s 04/27/25 Allergies Allergy/AdvReac Type Severity Reaction Status Date / Time egg (EGG) Allergy Intermediate VOMITING Verified 04/27/25 14:33 oxycodone (OXYCODONE) Allergy Intermediate NAUSEA/NIGH Verified 04/27/25 14:33 TMARES Penicillins (PCN) Allergy Intermediate RASH Verified 04/27/25 14:33 tramadol (TRAMADOL) Allergy Intermediate ITCHING Verified 04/27/25 14:33 acetaminophen (Percocet) Allergy Unknown none Verified 04/27/25 14:33 codeine Allergy Unknown nightmares Verified 04/27/25 14:33 Review of Systems 2 Constitutional: Constitutional: Reports no additional constitutional complaints, Reports body ache(s), Denies chills, Denies fever(s) and Denies night sweats Eyes: Eyes: Reports no additional eye complaints, Denies blurry vision, Denies change in vision, Denies diplopia, Denies eye discharge, Denies loss of vision and Denies eye pain ENT: Denies dizziness Cardiovascular: Cardiovascular: Reports no additional cardiovascular complaints, Denies chest pain, Denies lightheadedness, Denies Loss of Consciousness and Denies dyspnea Respiratory: Respiratory: Reports no additional respiratory complaints, Reports cough and Denies dyspnea Gastrointestinal: Gastrointestinal: Reports no additional gastrointestinal complaints, Denies abdominal pain, Denies melena, Denies hematochezia, Denies change in bowel habits and Denies change in stool character Genitourinary: Genitourinary: Denies hematuria, Denies urinary frequency, Denies dysuria, Denies urinary incontinence, Denies urinary hesitancy and Denies urinary urgency Musculoskeletal: Musculoskeletal: Reports no additional musculoskeletal complaints, Denies numbness and Denies tingling Neurologic: Denies dizziness, Denies loss of vision, Denies numbness and Denies tingling Psychiatric: Psychiatric: Reports no additional psychiatric complaints Endocrine: Endocrine: Reports no additional endocrine complaints Hematologic/Lymphatic: Hematologic/Lymphatic: Reports no additional hematologic/lymphatic complaints Allergic/Immunologic: Allergic/Immunologic: Reports no additional allergic/immunologic complaints PMF Past Medical History Attestation statement: The following information was validated with the patient. (all information validated with the patient's daughter) Source: old records reviewed, obtained from family (patient's daughter provided additional history and confirmed the history provided by the patient. ) and nursing notes reviewed Medical History (Updated 04/27/25 @ 16:36 by PATRICIA Byrd) Acute respiratory disease Cerebellar ataxia Primary osteoarthritis of left knee Constipation Contusion of left knee, sequela Muscle strain of right shoulder region Candidal intertrigo Meniere's disease Memory impairment Arthritis Fibromyalgia Diabetic acidosis, type I Obesity (BMI 30-39.9) Depression Anxiety Insomnia Iron deficiency Vitamin D deficiency Osteoarthrosis GERD without esophagitis Allergic rhinitis Pure hypercholesterolemia Diabetes mellitus Benign essential hypertension Fibromyalgia Asthma Obesity Dyslipidemia Hypertension 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 Maternal Grandmother Breast cancer Social History Social History Household Members: Family Housing: Apartment Do you presently have visiting nurse or other home services: No Alcohol intake: never Patient Tobacco Use Status: Never used Tobacco e-Cigarette/Vaping Use: Never Used Second Hand Smoke Exposure: Yes Advance Directives: No Advance Directives Information Provided: Yes Patient : No service: No Current occupational status: disabled Cognitive needs: Yes (cane) Hearing needs: No Vision needs: Yes (glasses) Physical Exam ED Vital Signs: Vital Signs - 24 hr 04/27/25 14:32 04/27/25 14:49 04/27/25 16:13 Temperature 98.9 F 99.4 F Pulse Rate 81 77 77 Respiratory Rate 16 22 H 21 H Blood Pressure 133/70 103/43 L Pulse Oximetry 98 94 Oxygen Delivery Method Room Air Room Air 04/27/25 16:13 04/27/25 16:42 Temperature 99.0 F Pulse Rate 78 78 Respiratory Rate 16 16 Blood Pressure 103/58 L 103/58 L Pulse Oximetry 95 95 Oxygen Delivery Method Room Air Room Air BMI result Body Mass Index 35.9 Const General: cooperative, no acute distress, alert and awake Nutritional Appearance: well nourished Orientation/consciousness: patient oriented x3 HENMT Head: Yes normal to inspection and Yes atraumatic Ears: hearing grossly normal bilaterally and external ears normal General nose exam: Normal external nose present, no nasal discharge noted and no epistaxis Face and sinus: Yes normal facial exam, No abrasion and No laceration Mouth: Normal oral and palatal mucosa present, no drooling and no muffled voice Eyes General: appearance normal, both eyes and all related structures Periorbital: periorbital findings normal Eyelids: Yes eyelids normal Conjunctivae: conjunctivae normal Pupils: Equal, round and reactive pupils present EOM: EOMs intact bilaterally Neck Neck: Yes normal visual inspection, Yes full ROM and Yes no lymphadenopathy Resp Effort & Inspection: normal respiratory effort and able to speak in complete sentences Neuro General: patient oriented x3, moves all extremities and CN's II-XI intact bilaterally Cranial nerves: Yes Equal, round and reactive pupils present Cognition (Neuro): normal cognition Extrem General: Yes normal to inspection, Yes full ROM and Yes capillary refill normal Psych Appearance: grossly normal Mental Status: mental status grossly normal Affect: normal affect Attitude: cooperative Thought process: Normal thought process present Thought content: Normal thought content present Insight: Good insight present (Psych) Medications Administered Discontinued Medications Generic Name Dose Route Start Last Admin Trade Name Freq PRN Reason Stop Dose Admin Albuterol Sulfate 2.5 mg/ 0 mg 04/27/25 16:10 04/27/25 16:12 Albuterol/Ipratropium 3 ml INHALE 04/27/25 16:11 1 dose ONCE ONE Administration Medical Decision Making Medical Decision Making MDM Narrative: Patient is a 59 year old assigned female at with a history of MDD, cerebellar ataxia, OA, HTN, and DM presenting to the emergency department today with a cough and body aches. Patient's physical exam was unremarkable. Patient's blood work was unremarkable. Patient's chest x-ray showed no acute process. I explained my physical exam findings as well as all test results to the patient and the patient's daughter. I answered all questions asked by the patient and the patient's daughter. Patient received steroids via EMS as well as a duoneb and another breathing treatment while in the department and states that helped her symptoms significantly. I stressed the importance of the patient taking her medication as directed (either prescribed or as the over the counter packaging recommends). I stressed the importance of the patient following up with her primary care provider. I stressed the importance of the patient returning to the emergency department immediately if her symptoms were to worsen or if she were to develop any dizziness, shortness of breath, difficulty breathing, chest pain, blurry vision, loss of vision, nausea, vomiting, abdominal pain, fever, chills, back pain, or any other complaints. Patient and the patient's daughter verbalized agreement and understanding with this treatment plan and discharge. Differential Diagnosis Differential Diagnoses: The differential diagnosis associated with the presentation includes Bronchitis URI Viral illness Cough Admission/Observation Consideration of admission/observation: Escalation of care including admission/observation considered Patient would have been admitted to the hospital had her work up had any findings where hospital admission was appropriate and her clinical presentation warranted hospital admission. Lab Data [facility] Lab Attestation statement: I reviewed the patient's lab results. My interpretation of these results are in the [facility] Rationale portion of this note. 04/27/25 15:00 04/27/25 15:00 Labs: Lab Results 04/27/25 Range/Units 15:00 WBC 8.4 (4.8-10.8) X10*3/uL RBC 4.84 (4.20-5.50) X10*6/uL Hgb 12.5 (12.0-16.0) g/dl Hct 38.8 (37.0-47.0) % MCV 80.2 (80.0-98.0) fL MCH 25.8 L (27.0-33.0) pg MCHC 32.2 (31.0-35.0) g/dl RDW 15.1 (11.0-16.0) % Plt Count 181 D (160-400) X10*3/uL MPV 10.5 (9.4-12.3) fL Immature Gran % (Auto) 0.2 (0.0-0.4) % Neut % (Auto) 61.2 (45-73) % Lymph % (Auto) 28.7 (20-40) % Fallon % (Auto) 9.0 (2-11) % Eos % (Auto) 0.7 (0-4) % Baso % (Auto) 0.2 (0-2) % Lymph # (Auto) 2.4 (1.2-4.9) X10*3/uL [place] # (Auto) 0.8 (0.1-1.2) X10*3/uL Eos # (Auto) 0.1 (0.0-0.4) X10*3/uL Baso # (Auto) 0.0 (0.0-0.2) X10*3/uL Abs Immat Gran (auto) 0.02 (0.00-0.03) X10*3/uL Absolute Neuts (auto) 5.1 (2.0-8.3) x10*3/uL Absolute Nucleated RBC 0.000 (0.0-0.012) X10*3/uL Nucleated RBC % (auto) 0.0 (0.0-0.2) /100WBC Sodium 140 (135-145) mmol/L Potassium 4.0 (3.3-5.1) mmol/L Chloride 105 (96-108) mmol/L Carbon Dioxide 25 (22-29) mmol/L Anion Gap 14 (12-20) BUN 14 (9-16) mg/dL Creatinine 0.62 (0.5-1.4) mg/dL Estim Creat Clear Calc 110.2 Estimated GFR > 60 Random Glucose 112 (60-115) mg/dL Calcium 9.6 (8.4-10.2) mg/dL Total Bilirubin 0.6 (0.0-1.0) mg/dL AST 23 (5-31) U/L ALT 15 (0-31) U/L Alkaline Phosphatase 94 (39-117) U/L Troponin I High Sens < 2.7 (<3.5-17.0) ng/L Total Protein 6.8 (6.5-8.0) g/dL Albumin 4.2 (3.5-5.0) g/dL Influenza Type A (PCR) NEGATIVE (Negative) Influenza Type B (PCR) NEGATIVE (Negative) RSV RNA Qual (PCR) NEGATIVE (Negative) SARS-CoV-2 RNA (RT-PCR) NEGATIVE (Negative) Independent Interpretation I performed an independent interpretation of an: EKG and Plain X-Ray (chest) Interpretation: My interpretation is in agreement with the radiologist's impression of this imaging study. L EXAMINATION: XR CHEST CLINICAL INFORMATION: cough, chest tightness COMPARISON: 02/16/2024. 12/08/2020. TECHNIQUE: Frontal view of the chest was obtained. FINDINGS: The cardiac, hilar, and mediastinal contours are normal. The lungs are clear bilaterally. Calcified granuloma in the left upper lobe. No pneumothorax or effusion. No focal osseous or soft tissue abnormality. There are spinal degenerative changes. XR/XR chest 1V IMPRESSION: No active pulmonary disease. Electronically signed by: Gio Watson MD 04/27/2025 03:26 PM EDT Dictated By: Gio Watson MD Signed By: Electronically signed by Gio Watson MD 04/27/25 1526 I independently interpreted this EKG and am in agreement with the below findings: Vent. Rate: 84 BPM Atrial Rate: 84 BPM P-R Int: 154 ms QRS Dur: 92 ms QT Int: 390 ms P-R-T Axes: 44 6 44 degrees QTcB Int: 460 ms Normal sinus rhythm Normal ECG When compared with ECG of 05-Apr-2024 08:48, No significant change was found DD/ [id number] Radiology Impression Discussion of test interpretation with radiology: I have reviewed the radiologist's reading. Independent Historian Clinical information obtained from an independent historian. History obtained from or confirmed by: EMS (EMS provided additional history and confirmed the history provided by the patient.) and Other (patient's daughter provided additional history and confirmed the history provided by the patient) Critical Care Time Critical Care Time Critical Care Time: Yes Total Critical Care Time: 32 Attestation: I spent 32 minutes of Critical Care Time with this patient. This does not include time spent on separately reported billable procedures. Discharge Plan Discharge Clinical Impression: Bronchitis Patient Disposition: Home, Self-Care Instructions: Acute Bronchitis (ED) Additional Instructions: Follow up with your primary care provider. Return to the emergency department immediately if your symptoms worsen or if you develop any dizziness, shortness of breath, difficulty breathing, chest pain, blurry vision, loss of vision, nausea, vomiting, abdominal pain, fever, chills, back pain, or any other complaints. Melida?seguimiento?con rivas m?dico de atenci?n primaria. Acuda inmediatamente al servicio de urgencias si kin s?ntomas empeoran o si presenta falta de aliento, dificultad para respirar, dolor tor?cico, mareos, aturdimiento, dolor de espalda, dolor abdominal, fiebre, escalofr?os o cualquier otro s?ntoma. Please see the information below about our Patient Portal. If you are not yet enrolled in the [facility] Patient Portal, you will receive an enrollment email invitation following your visit to any [facility] setting. You may also self-enroll in the Patient Portal by visiting our website: [email or web address] The following information is required to access the Patient Portal: - Your [facility] Medical Record Number - Your personal home email address (must match what is in your electronic medical record, Registration staff can assist with this) - Name - Date of Capabilities of the Patient Portal: - Message some providers - View upcoming appointments - Access your health summary, medical history, and visit history - View current conditions and allergies - View procedure and lab results - View your medications, including guidelines, side effects, and precautions - Complete pre-appointment questionnaires requested by your provider - Ready summary reports of your office visits and procedures To access the Patient Portal Mobile Abdi, follow these directions: - Search ChupaMobile in the Abdi Store or Google emaze Store - Download the Abdi - Search for [facility] - Enter your login/password Portal del paciente Si usted no esta inscrito en el portal de pacientes de [facility], recibira destiny invitacion de inscripcion despues de rivas visita al [facility] o al [facility] via correo electronico. Tambien puede inscribirse voluntariamente en el portal de pacientes visitando nuestra pagina web: [email or web address] La siguiente informacion sera requerida para acceder al portal: - Rivas neto de historia medica de [facility] - Rivas direccion de correo electronico personal - Nombre - Fecha de nacimiento Capacidades: Las siguientes capacidades estan disponibles en el portal de pacientes: - Enviar mensajes a algunos doctores - Verificar proximas citas - Acceso a rivas historial de nate, registro medico e historial de visitas - Kristin las condiciones actuales y alergias kristin procedimientos y resultados del laboratorio - Kristin kin medicamentos, incluyendo las pautas - Efectos secundarios y precauciones - Completar o llenar formularios / cuestionarios de - Citas solicitadas por rivas doctor - Leer los resumenes de reportes medicos de kin visitas y procedimientos Mantador acceder a la aplicacion movil: - Busque ChupaMobile en la Abdi Store o ULURU Store - Descargue la aplicacion - Busque [facility] - Ingrese rivas nombre de usuario / Contrasena Prescriptions: New azithromycin 250 mg tablet See Rx Instructions .ROUTE .COMPLEX Qty: 6 0RF Rx Instructions: For 250 mg dose pack: take 500 mg today (day 1), then 250 mg for 4 days (days 2-5) prednisone 20 mg tablet 20 mg PO DAILY 7 Days Qty: 7 0RF No Action aspirin 81 mg tablet,chewable 1 tab PO DAILY 30 Days Qty: 30 3RF (DME) FreeStyle [place] 3 [place] Misc See Rx Instructions .Route Qty: 1 0RF Rx Instructions: As directed (DME) FreeStyle [place] 3 Sensor Device See Rx Instructions .Route Qty: 2 11RF Rx Instructions: As directed (DME) FreeStyle Lite Strips Strip See Rx Instructions .Route Qty: 100 6RF Rx Instructions: 3 times daily Mounjaro 5 mg/0.5 mL pen injector 5 mg subcut QWEEK 28 Days Qty: 2 0RF (DME) underpads Pad See Rx Instructions .Route Qty: 300 2RF Rx Instructions: As directed (DME) Shower Chair Misc See Rx Instructions .Route Qty: 1 0RF Rx Instructions: As directed (DME) wipes See Rx Instructions .Route .MEDSUPPLY Qty: 2 3RF Rx Instructions: As directed (DME) adult- pull ups large See Rx Instructions .Route .MEDSUPPLY Qty: 300 2RF Rx Instructions: As directed Jardiance 25 mg tablet 25 mg PO QAM 90 Days Qty: 90 3RF (DME) cane Device See Rx Instructions .Route Qty: 1 0RF Rx Instructions: As directed metformin 1,000 mg tablet 1,000 mg PO BID 30 Days Qty: 60 3RF (DME) RECLINER CHAIR See Rx Instructions .Route .MEDSUPPLY Qty: 1 0RF Rx Instructions: As directed albuterol sulfate 90 mcg/actuation HFA aerosol inhaler 2 puff inhalation Q6-8H PRN (Reason: shortness of breath or wheezing) 90 Days Qty: 3 3RF sennosides [Senna Lax] 8.6 mg Tablet 8.6 mg PO BEDTIME 30 Days Qty: 30 0RF trazodone 50 mg Tablet 50 mg PO BEDTIME MRX1 PRN (Reason: Insomnia) 30 Days Qty: 60 0RF sertraline 50 mg Tablet 150 mg PO DAILY 30 Days Qty: 90 0RF cholecalciferol (vitamin D3) [Vitamin D3] 50 mcg (2,000 unit) capsule 50 mcg PO DAILY Qty: 90 1RF (DME) blood-glucose meter [FreeStyle [place] Lite] Kit See Rx Instructions .Route Qty: 1 1RF Rx Instructions: As directed insulin glargine 100 unit/mL (3 mL) insulin pen 10 unit subcut DAILY 30 Days Qty: 3 6RF lisinopril 5 mg tablet 5 mg PO DAILY 90 Days Qty: 90 3RF montelukast 10 mg tablet 10 mg PO DAILY 90 Days Qty: 90 3RF (DME) RECLINER See Rx Instructions .Route .MEDSUPPLY Qty: 1 0RF Rx Instructions: As directed Xolair 300 mg/2 mL syringe 300 mg subcut Q2W Rx Instructions: requires multiple injection sites; do not exceed 150 mg per injection site clotrimazole 1 % cream 1 appl topical BID 30 Days Qty: 5 0RF Protocol: Apply to: Apply to: sole both feet atorvastatin 40 mg tablet 40 mg PO BEDTIME 90 Days Qty: 90 1RF omeprazole 20 mg capsule,delayed release(DR/EC) 20 mg PO DAILY 90 Days Qty: 90 3RF docusate sodium 100 mg capsule 100 mg PO BID PRN (Reason: constipation) 30 Days Qty: 60 5RF fluticasone furoate-vilanterol [Breo Ellipta] 200-25 mcg/dose blister with device 1 inh inhalation DAILY 30 Days Qty: 1 6RF acetaminophen 325 mg tablet 650 mg PO Q6H PRN (Reason: Headache/Pain Mild Scale (1-3)) 30 Days Qty: 60 3RF (DME) RAISED TOILET SEAT with HANDLES See Rx Instructions .Route .MEDSUPPLY Qty: 2 0RF Rx Instructions: As directed (DME) pen needle, diabetic [BD Ultra-Fine [place] Pen Needle] 32 gauge x 5/32 needle See Rx Instructions .Route Qty: 50 11RF Rx Instructions: As directed Referrals: Dwayne Stone MD [Primary Care Provider, Internal Medicine] Interventions: ED Discharge Assessment Last Done: 04/27/25 16:42 Discharge Date/Time: 04/27/25 16:42 Print Language: Divehi
[2025-04-27] MEDS: Albuterol Sulfate 2.5 MG, Albuterol/Iprat 2.5/0.5MG 3 ML 3 ML INHALE (16:12)
[2025-04-27 16:13] VITALS: BP 103/58; PULSE 77; PULSE 78; RESP 16; RESP 21; O2SAT 95; O2SAT 96
[2025-04-27 16:42] VITALS: BP 103/58; PULSE 78; RESP 16; TEMP 37.2; O2SAT 95
== END 2025-04-27 16:42 | disposition home or self-care (01) ==
PROVIDERS: Emergency Provider Emergency Medicine; PCP Internal Medicine
DX: J40 Bronchitis, not specified as acute or chronic (principal); R06.02 Shortness of breath; R07.89 Other chest pain; R05.9 Cough, unspecified; M79.10 Myalgia, unspecified site; I10 Essential (primary) hypertension; E11.9 Type 2 diabetes mellitus without complications; Z79.899 Other long term (current) drug therapy; Z79.85 Long-term (current) use of injectable non-insulin antidiabetic drugs; Z79.4 Long term (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
CPT/HCPCS: 0241U; 36415; 71045; 80053; 84484; 85025; 93005; 94640; 99284

== ENCOUNTER → 2025-04-27 14:34 | Outpatient (BNV) | payer OTHER, SELFPAY | PROVIDERS: PCP Internal Medicine; Visit Provider Radiology Diagnostic Radiology | DX: R07.9 Chest pain, unspecified (principal) | CPT/HCPCS: 71045 ==

== ENCOUNTER → 2025-04-27 14:34 | Outpatient (BNV) | payer OTHER, SELFPAY | PROVIDERS: Emergency Provider Emergency Medicine; PCP Internal Medicine; Visit Provider Internal Medicine Cardiovascular Disease | DX: R07.89 Other chest pain (principal) | CPT/HCPCS: 93010 ==

== ENCOUNTER 2025-05-04 14:34 | Outpatient (AMB) | payer OTHER, SELFPAY ==
--- NOTE | 2025-05-04 14:36 | MHC.PC.OV ---
Vital Signs 05/04/25 14:37 Height 5 ft 5 in Weight 212 lb BMI 35.3 BP 100/62 Blood Pressure Location Lt brachial Position Sitting Respiration 18 Pulse 69 Pulse Source Pulse Oximeter Temp 99.0 F Temp Source Oral Pulse Oximetry (%) 95 Oxygen Delivery Method Room Air Intake Visit Reasons: [facility] 05/16 rt & 06/20 lt Intake Note: Surgery will be preformed by Dr. Ryan Jolley Coke Drawer Required: No Accompanied by: Self / Same As Patient Allergies egg (EGG) Allergy (Intermediate, Verified 05/04/25 14:50) VOMITING oxycodone (OXYCODONE) Allergy (Intermediate, Verified 05/04/25 14:50) NAUSEA/NIGHTMARES Penicillins (PCN) Allergy (Intermediate, Verified 05/04/25 14:50) RASH tramadol (TRAMADOL) Allergy (Intermediate, Verified 05/04/25 14:50) ITCHING acetaminophen (Percocet) Allergy (Unknown, Verified 05/04/25 14:50) none codeine Allergy (Unknown, Verified 05/04/25 14:50) nightmares Medication List - Last Reconciled 05/04/25 by TRES Pedroza acetaminophen 650 mg (2 x 325 mg) PO Q6H PRN 30 days [adult- pull ups large As directed] albuterol sulfate 90 mcg/actuation 2 puffs inhalation Q6-8H PRN 90 days aspirin 1 tab PO DAILY 30 days atorvastatin 40 mg PO BEDTIME 90 days azithromycin For 250 mg dose pack: take 500 mg today (day 1), then 250 mg for 4 days (days 2-5) blood sugar diagnostic (FreeStyle Lite Strips) 3 times daily blood-glucose meter (FreeStyle [place] Lite kit) As directed blood-glucose sensor (FreeStyle Everett 3 Sensor device) As directed blood-glucose,dealmaker,cont (FreeStyle [place]rett 3 Mason) As directed cane As directed cholecalciferol (vitamin D3) (Vitamin D3) 50 mcg PO DAILY clotrimazole 1% 1 appl See Protocol topical BID 30 days docusate sodium 100 mg PO BID PRN 30 days empagliflozin (Jardiance) 25 mg PO QAM 90 days fluticasone furoate-vilanterol 200-25 mcg/dose (Breo Ellipta) 1 inh inhalation DAILY 30 days insulin glargine 10 units (0.1 mL) subcut DAILY 30 days lisinopril 5 mg PO DAILY 90 days metformin 1,000 mg PO BID 30 days montelukast 10 mg PO DAILY 90 days omalizumab (Xolair) 300 mg subcut Q2W omeprazole 20 mg PO DAILY 90 days pen needle, diabetic (BD Ultra-Fine Pippa Pen Needle) As directed prednisone 20 mg PO DAILY 7 days [RAISED TOILET SEAT with HANDLES As directed] [RECLINER As directed] [RECLINER CHAIR As directed] sennosides (Senna Lax) 8.6 mg PO BEDTIME 30 days sertraline 150 mg (3 x 50 mg) PO DAILY 30 days Shower Chair As directed tirzepatide (Mounjaro) 5 mg (0.5 mL) subcut QWEEK 28 days trazodone 50 mg PO BEDTIME MRX1 PRN 30 days underpads As directed [wipes As directed] Tobacco use date assessed: 05/04/25 Dental Screening Dental Screen Date: 05/04/25 Did you have a dental visit in the last 12 months?: Yes Did you have a dental problem in the last 6 months where you did not have access to dental care?: No Was dental information given to patient?: Patient has dentist HPI [facility] 05/16 rt & 06/20 lt HPI Details The patient is a 59-year-old female. Patient of Dr. Stone, she was last seen in office on 03/31/25 The patient has a longstanding history of cataract in both eyes. This was recommended to be monitored in the past because it was not visually significant then. The patient reports that her vision has gotten worse, so decision was made to follow through with cataract surgery. She reports having lasiks eye surgery in the past. Surgeon/location: Dr. Ryan Jolley at [facility] in [place], [place] DATE: Right eye 05/16/2025, left eye 06/20/2025 Anesthesia: Mac. Patient denies any issues with anesthesia in the past. The patient denies any post surgery hypothermia or clotting disorder and she is not on any blood thinners or disease modifying antirheumatic drugs (DMARDs). She is on aspirin which should be continued. 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 Reports that she is getting better, but she is not back to 100 percent as yet. Faint expiratory wheezes through heard, but no s/sx of respiratory distress. The patient denies chest pain, dizziness or heart palpitations Mild sob with exertion due to her asthma that was complicated by the bronchitis Medication discussion: Hold Jardiance 3 days before surgery. Take half of your current dose of Lantus the day of surgery. Hold the even dose of Metformin the day before surgery. Hold Mounjaro a week before surgery. Take your lisinopril 5 mg with sips of water the of the surgery. [facility] Medical History (Updated 05/07/25 @ 23:45 by TRES Pedroza) Acute respiratory disease Cerebellar ataxia Primary osteoarthritis of left knee Constipation Contusion of left knee, sequela Muscle strain of right shoulder region Candidal intertrigo Meniere's disease Memory impairment Arthritis Fibromyalgia Diabetic acidosis, type I Obesity (BMI 30-39.9) Depression Anxiety Insomnia Iron deficiency Vitamin D deficiency Osteoarthrosis GERD without esophagitis Allergic rhinitis Pure hypercholesterolemia Diabetes mellitus Benign essential hypertension Fibromyalgia Asthma Obesity Dyslipidemia Hypertension FDC (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 Diabetic nephropathy associated with type 2 diabetes mellitus Diabetes type 2, uncontrolled Surgical History Hx of hernia repair History of loop electrical excision procedure (LEEP) Family History Father Diabetes Mother No problems noted. Maternal Grandmother Breast cancer Social History Household Members: Family Housing: Apartment Do you presently have visiting nurse or other home services: No Alcohol intake: never Patient Tobacco Use Status: Never used Tobacco e-Cigarette/Vaping Use: Never Used Second Hand Smoke Exposure: Yes service: No Current occupational status: disabled Current occupational exposures/hazards: No Cognitive needs: Yes (cane) Hearing needs: No Vision needs: Yes (glasses) Female Reproductive History Menstrual Age of Menarche: 10 Questionnaire PHQ-9 Over the last 2 weeks, how often have you been bothered by any of the following problems? 1. Little interest or pleasure in doing things: not at all 2. Feeling down, depressed, or hopeless: not at all 3. Trouble falling or staying asleep, or sleeping too much: nearly every day 4. Feeling tired or having little energy: not at all 5. Poor appetite or overeating: not at all 6. Feeling bad about yourself - or that you are a failure or have let yourself or your family down: not at all 7. Trouble concentrating on things, such as reading the newspaper or watching television: not at all 8. Moving or speaking so slowly that other people could have noticed. Or the opposite - being so fidgety or restless that you have been moving around a lot more than usual: more than half the days 9. Thoughts that you would be better off or of hurting yourself in some way: not at all Total score: 5 Depression Screening Interpretation: Positive Depression Screening Follow-up: Existing condition and In treatment Depression Screening Done: Yes Source: Developed by Drs. Kory Jerez, Nina Minaya, Basilio Peterson and colleagues, with an educational sheldon from [employer]. Thrive Questionnaire Date Thrive assessed: 05/04/25 I am a: Patient What is your living situation today?: I have a steady place to live Within the past 12 months, did the food you bought not last and you didn't have the money to get more?: Never true Within the past 12 months, did you worry whether your food would run out before you got money to buy more?: Never true Do you have trouble paying for medicines?: No Do you have trouble getting transportation to medical appointments?: No Do you have trouble paying your heating and electricity bill?: I choose not to answer this question Do you have trouble taking care of your child, family member or friend?: No Do you have trouble with day-to-day activities such as bathing, preparing meals, shopping, managing finances, etc.?: No Are you currently unemployed and looking for a job?: No Are you interested in more education?: No Please select the resources that you would like help with: None Currently or been in a relationship where the following occur: I choose not to answer THRIVE Score: 0 AUDIT C Alcohol Use Questionnaire (AUDIT-C) 1. How often do you have a drink containing alcohol?: Never 3. How often do you have six or more drinks on one occasion?: Never Total Score: 0 Score Reviewed/Action Taken: Yes RACHAEL-7 AMB Questionnaire RACHAEL-7 Date RACHAEL - 7 assessed: 05/04/25 Feeling nervous, anxious, or on edge: 0 = Not at all Not being able to stop or control worryin = Not at all Worrying too much about different things: 0 = Not at all Trouble relaxin = Not at all Being so restless that it is hard to sit still: 0 = Not at all Becoming easily annoyed or irritable: 0 = Not at all Feeling afraid as if something awful might happen: 0 = Not at all Total RACHAEL-7 score (0-4 normal; 5-9 mild; 10-14 moderate; 15-21 severe): 0 Source: Developed by Drs. Kory Jerez, Nina Minaya, Basilio Peterson and colleagues, with an educational sheldon from [employer]. Review of Systems Const Denies headache(s) Eyes Reports change in vision (vision has been decreasing) and Denies loss of vision ENT Denies vertigo, Denies dizziness, Denies headache(s) and Denies sore throat Card Denies chest pain, Denies leg edema, Denies lightheadedness and Reports dyspnea on exertion (mild) Resp Reports cough (on and off), Denies hemoptysis, Reports dyspnea on exertion (mild) and Reports wheezing GI Denies abdominal pain, Denies melena, Denies constipation, Denies diarrhea and Denies vomiting Denies urinary frequency, Denies dysuria and Denies urinary urgency Musc Denies numbness and Denies tingling Neuro Denies vertigo, Denies dizziness, Denies headache(s), Denies loss of vision, Denies memory loss, Denies numbness and Denies tingling Psych Denies anxiety, Denies depression, Denies memory loss and Denies panic attacks Jerson/Lymph Denies easy bleeding and Denies easy bruising Aller/Immun Reports wheezing Physical exam (Primary Care) Vital Signs: Last Vital Signs Temp 99.0 F 05/04/25 14:37 Pulse 69 05/04/25 14:37 Resp 18 05/04/25 14:37 BP 100/62 05/04/25 14:37 Pulse Ox 95 05/04/25 14:37 Oxygen Delivery Method Room Air 05/04/25 14:37 BMI result Body Mass Index 35.3 Tobacco/Smoking Status: Tobacco use Status Tobacco use date assessed 05/04/25 05/04/25 14:42 Patient Tobacco Use Status Never used Tobacco 05/04/25 14:42 e-Cigarette/Vaping Use Never Used 05/04/25 14:42 PHQ-9: PHQ-9 Score PHQ-9: Total score 5 05/04/25 15:25 Depression Screening Interpretation: Positive Depression Screening Follow-up: Existing condition and In treatment Thrive Assessment: Date of Thrive Assessment Date Thrive assessed 05/04/25 05/04/25 14:42 Currently or been in a relationship where the following occur: I choose not to answer Const General: healthy appearing, no acute distress, alert and awake Nutritional Appearance: well nourished Orientation/consciousness: oriented to person, oriented to place and oriented to time HENMT Ears: TM's normal bilaterally General nose exam: Normal nasal mucous membranes and turbinates present Eyes Conjunctivae: conjunctivae normal Sclerae: sclerae normal Pupils: Equal, round and reactive pupils present Neck Neck: Yes no lymphadenopathy and Yes no JVD Thyroid: Thyroid normal Carotids: no bruits Resp Effort & Inspection: normal respiratory effort and not tachypneic Auscultation: no crackles, no rales, no rhonchi and no wheezes Cardio Rate: regular rate Rhythm: regular rhythm Heart sounds: no murmurs and normal S1 and S2 GI Palpation (GI): Soft to palpation, nontender, no hepatomegaly and no splenomegaly Auscultation: normal bowel sounds Skin General skin exam: no rashes or lesions noted and dry skin Neuro General: oriented to person, oriented to place and oriented to time Cranial nerves: Yes Equal, round and reactive pupils present Gait exam (Neuro): Antalgic gait present Motor exam (neuro): no tremor noted Extrem Right upper extremity: full ROM Left upper extremity: full ROM Right lower extremity: full ROM; no edema Left lower extremity: full ROM; no edema Psych Mental Status: mental status grossly normal Speech and movement: Normal speech and movement present Affect: normal affect Attitude: cooperative Thought process: Normal thought process present Results Reviewed Results Reviewed: Laboratory Tests 04/04/25 04/04/25 04/27/25 11:26 11:27 15:00 WBC 8.4 RBC 4.84 Hgb 12.5 Hct 38.8 MCV 80.2 MCH 25.8 L MCHC 32.2 RDW 15.1 Plt Count 181 D MPV 10.5 Immature Gran % (Auto) 0.2 Sodium 140 Potassium 4.0 Chloride 105 Carbon Dioxide 25 Anion Gap 14 BUN 14 Creatinine 0.62 Estim Creat Clear Calc 110.2 Estimated GFR > 60 Random Glucose 112 Hemoglobin A1c % 6.7 H Calcium 9.6 Total Bilirubin 0.6 AST 23 ALT 15 Alkaline Phosphatase 94 Troponin I High Sens < 2.7 Total Protein 6.8 Albumin 4.2 25-OH Vitamin D Total 46.3 TSH 1.93 Urine Color Yellow Urine Appearance Clear Urine pH 7.0 Ur Specific Hansen >= 1.030 H Urine Protein Negative Urine Glucose (UA) >=1000 H Urine Ketones Negative Urine Blood Negative Urine Nitrite Negative Ur Leukocyte Esterase Negative Urine RBC 0-2 Urine WBC 0-5 Ur Squamous Epith Cells 0-2 Urine Bacteria None Seen Hyaline Casts 0-2 Coding Level of Care Code Est Pt Level 4 (49248) Diagnoses Preoperative clearance Z01.818 Hypertension, unspecified type I10 Hypertension type: unspecified Pure hypercholesterolemia E78.00 FDC (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 Z79.4 Type 2 diabetes mellitus without complication, with long-term current use of insulin E11.9; Z79.4 Diabetes mellitus type: type 2 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: with alf use Diabetes mellitus complication status: without complication Class 3 severe obesity with body mass index (BMI) of 40.0 to 44.9 in adult, unspecified obesity type, unspecified whether serious comorbidity present E66.01; Z68.41 Obesity type: unspecified obesity type Obesity classification: adult class 3 (BMI >= 40) Serious obesity comorbidity presence: unspecified whether serious comorbidity present Body mass index: BMI 40.0-44.9 Cerebellar ataxia G11.9 Moderate persistent asthma without complication J45.40 Asthma severity: moderate Asthma persistence: persistent Asthma complication type: uncomplicated Time Spent (min) 41 Assessment & Plan Assessment & Plan (1) Preoperative clearance: Code(s): Z01.818 - Encounter for other preprocedural examination Category: Medical Plan: Recent labs on EKG reviewed Regarding preop clearance, the patient is at acceptable risk for proposed surgery. Reviewed with the patient that no surgery is completely free of risk and that this examination is to assist the surgeon in reviewing informed consent. (2) Hypertension: Code(s): I10 - Essential (primary) hypertension Category: Medical Qualifiers: Hypertension type: unspecified Qualified Code(s): I10 - Essential (primary) hypertension Plan: BP 100/62 within goal Reinforced low-sodium diet Continue lisinopril 5 mg daily (3) Pure hypercholesterolemia: Code(s): E78.00 - Pure hypercholesterolemia, unspecified Category: Medical Plan: Total cholesterol 183, triglycerides 89, LDL 103, HDL 63 Reinforced low-cholesterol diet Continue atorvastatin 40 mg at bedtime (4) FDC (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: Code(s): Z79.4 - FDC (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 Category: Medical Plan: Take half of the Lantus the day of surgery= 5 units subQ (5) Diabetes mellitus: Code(s): E11.9 - Type 2 diabetes mellitus without complications Category: Medical Qualifiers: Diabetes mellitus type: type 2 Diabetes mellitus alf insulin use: with alf use Diabetes mellitus complication status: without complication Qualified Code(s): E11.9 - Type 2 diabetes mellitus without complications; 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 Hold Jardiance 3 days before surgery. Take half of your current dose of Lantus the day of surgery. Hold the even dose of Metformin the day before surgery. 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 MRI showed multiple areas of white matter. Follow up with Neurology as scheduled (8) Asthma: Code(s): J45.909 - Unspecified asthma, uncomplicated Category: Medical Qualifiers: Asthma severity: moderate Asthma persistence: persistent Asthma complication type: uncomplicated Qualified Code(s): J45.40 - Moderate persistent asthma, uncomplicated Plan: Continue montelukast 10 mg daily, Xolair 300 mg subQ q.week, Breo Ellipta 200-25 mcg/dose 1inh daily, albuterol sulfate 90 mcg/actuation 2 puffs inh q.6- 8H p.r.n. Follow up with pulmonology as scheduled
[2025-05-04 14:37] VITALS: BP 100/62; PULSE 69; RESP 18; TEMP 37.2; O2SAT 95; BMI 35.3
== END 2025-05-04 16:41 | disposition home or self-care (01) ==
LOC: HO.HMCH 14:34
PROVIDERS: PCP Internal Medicine
DX: E11.9 Type 2 diabetes mellitus without complications (principal); Z79.4 Long term (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; E66.01 Morbid (severe) obesity due to excess calories; Z68.41 Body mass index [BMI] 40.0-44.9, adult; G11.9 Hereditary ataxia, unspecified; Z01.818 Encounter for other preprocedural examination; I10 Essential (primary) hypertension; E78.00 Pure hypercholesterolemia, unspecified; J45.40 Moderate persistent asthma, uncomplicated

== ENCOUNTER → 2025-05-04 14:34 | Outpatient (BNVA) | payer OTHER, SELFPAY | PROVIDERS: PCP Internal Medicine | DX: Z01.818 Encounter for other preprocedural examination (principal); I10 Essential (primary) hypertension; E78.00 Pure hypercholesterolemia, unspecified; E11.9 Type 2 diabetes mellitus without complications; E66.813 Obesity, class 3; E66.01 Morbid (severe) obesity due to excess calories; G11.9 Hereditary ataxia, unspecified; J45.40 Moderate persistent asthma, uncomplicated; Z79.4 Long term (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; Z68.41 Body mass index [BMI] 40.0-44.9, adult | CPT/HCPCS: 96127; 99212 ==

== ENCOUNTER 2025-05-09 10:34 | Outpatient (REF) | payer OTHER, SELFPAY ==
--- NOTE | ~2025-05-09 | XR_ITS ---
EXAMINATION: XR CHEST 2 VIEWS HISTORY: R05.9 - Cough, unspecified COMPARISON: Comparison is made with the prior examination dated 02/16/2024. FINDINGS: PA and lateral views of the chest are submitted. Again seen is a ossified granuloma at the left lung apex. The lungs are otherwise clear. There is no pleural effusion, pneumothorax, or pulmonary vascular congestion. The heart is normal in size. There is degenerative disc disease of the spine. XR/XR chest 2V IMPRESSION: No acute cardiopulmonary abnormality. Electronically signed by: Kory Miller MD 05/09/2025 12:47 PM EDT
== END 2025-05-09 10:35 | disposition home or self-care (01) ==
LOC: HO.LAB 10:34
PROVIDERS: PCP Internal Medicine; Visit Provider Internal Medicine
DX: R05.9 Cough, unspecified (principal)
CPT/HCPCS: 71046; 99212

== ENCOUNTER 2025-05-09 10:34 | Outpatient (AMB) | payer OTHER, SELFPAY ==
--- NOTE | 2025-05-09 10:54 | A.OFFPC_ITS ---
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: Not Required per policy Accompanied by: Self / Same As Patient Allergies egg (EGG) Allergy (Intermediate, Verified 05/09/25 11:23) VOMITING oxycodone (OXYCODONE) Allergy (Intermediate, Verified 05/09/25 11:23) NAUSEA/NIGHTMARES Penicillins (PCN) Allergy (Intermediate, Verified 05/09/25 11:23) RASH tramadol (TRAMADOL) Allergy (Intermediate, Verified 05/09/25 11:23) ITCHING acetaminophen (Percocet) Allergy (Unknown, Verified 05/09/25 11:23) none codeine Allergy (Unknown, Verified 05/09/25 11:23) nightmares Medication List - Last Reconciled 05/09/25 by Rosmery Regan PA-C acetaminophen 650 mg (2 x 325 mg) PO Q6H PRN 30 days [adult- pull ups large As directed] albuterol sulfate 90 mcg/actuation 2 puffs inhalation Q6-8H PRN 90 days aspirin 1 tab PO DAILY 30 days atorvastatin 40 mg PO BEDTIME 90 days blood sugar diagnostic (FreeStyle Lite Strips) 3 times daily blood-glucose meter (FreeStyle [place] Lite kit) As directed blood-glucose sensor (FreeStyle [place] 3 Sensor device) As directed blood-glucose,tracer 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 charging machine operator,cont (FreeStyle [place] 3 [place]) As directed cane As directed cholecalciferol (vitamin D3) (Vitamin D3) 50 mcg PO DAILY clotrimazole 1% 1 appl See Protocol topical BID 30 days docusate sodium 100 mg PO BID PRN 30 days empagliflozin (Jardiance) 25 mg PO QAM 90 days fluticasone furoate-vilanterol 200-25 mcg/dose (Breo Ellipta) 1 inh inhalation DAILY 30 days insulin glargine 10 units (0.1 mL) subcut DAILY 30 days lisinopril 5 mg PO DAILY 90 days metformin 1,000 mg PO BID 30 days montelukast 10 mg PO DAILY 90 days omalizumab (Xolair) 300 mg subcut Q2W omeprazole 20 mg PO DAILY 90 days pen needle, diabetic (BD Ultra-Fine Pippa Pen Needle) As directed [RAISED TOILET SEAT with HANDLES As directed] [RECLINER As directed] [RECLINER CHAIR As directed] sennosides (Senna Lax) 8.6 mg PO BEDTIME 30 days sertraline 150 mg (3 x 50 mg) PO DAILY 30 days Shower Chair As directed tirzepatide (Mounjaro) 5 mg (0.5 mL) subcut QWEEK 28 days trazodone 50 mg PO BEDTIME MRX1 PRN 30 days underpads As directed [wipes As directed] Tobacco use date assessed: 05/09/25 Dental Screening Dental Screen Date: 05/04/25 [place] [facility] [place] Bronchitis HPI Details 59-year-old female with past medical his tory of hypercholesterolemia, diabetes mellitus with neuropathy, hypertension, asthma, obesity, fibromyalgia, GERD, has anxiety, insomnia, depression last seen by nurse practitioner 04/2025 coming in for hospital discharge follow up. In review of the notes, patient was seen in [facility] [place] [facility] 04/27/2025 for shortness of breath workup was negative patient was diagnosed with bronchitis and discharged home with azithromycin and prednisone. Presenting with symptoms of bronchitis. Reports a productive cough that began after a recent preoperative visit, primarily nocturnal with yellow sputum production. Experienced a fever of 100.1?F yesterday morning, resolved with Tylenol. She has been having fevers daily however she has been using Tylenol to manage them. Reports feeling tired and sometimes dizzy, associated with the onset of bronchitis. Has a history of asthma, exacerbated by hot weather. [facility] Medical History Acute respiratory disease Cerebellar ataxia Primary osteoarthritis of left knee Constipation Contusion of left knee, sequela Muscle strain of right shoulder region Candidal intertrigo Meniere's disease Memory impairment Arthritis Fibromyalgia Diabetic acidosis, type I Obesity (BMI 30-39.9) Depression Anxiety Insomnia Iron deficiency Vitamin D deficiency Osteoarthrosis GERD without esophagitis Allergic rhinitis Pure hypercholesterolemia Diabetes mellitus Benign essential hypertension Fibromyalgia Asthma Obesity Dyslipidemia Hypertension USP (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 Diabetic nephropathy associated with type 2 diabetes mellitus Diabetes type 2, uncontrolled Surgical History Hx of hernia repair History of loop electrical excision procedure (LEEP) Family History Father Diabetes Mother No problems noted. Maternal Grandmother Breast cancer Social History Household Members: Family Housing: Apartment Do you presently have visiting nurse or other home services: No Alcohol intake: never Patient Tobacco Use Status: Never used Tobacco e-Cigarette/Vaping Use: Never Used Second Hand Smoke Exposure: Yes service: No Current occupational status: disabled Current occupational exposures/hazards: No Cognitive needs: Yes (cane) Hearing needs: No Vision needs: Yes (glasses) Female Reproductive History Menstrual Age of Menarche: 10 Questionnaire Thrive Questionnaire Date Thrive assessed: 05/04/25 I am a: Patient What is your living situation today?: I have a steady place to live Within the past 12 months, did the food you bought not last and you didn't have the money to get more?: Often true Within the past 12 months, did you worry whether your food would run out before you got money to buy more?: Often true Do you have trouble paying for medicines?: No Do you have trouble getting transportation to medical appointments?: No Do you have trouble paying your heating and electricity bill?: I choose not to answer this question Do you have trouble taking care of your child, family member or friend?: No Do you have trouble with day-to-day activities such as bathing, preparing meals, shopping, managing finances, etc.?: No Are you currently unemployed and looking for a job?: No Are you interested in more education?: No Please select the resources that you would like help with: None Currently or been in a relationship where the following occur: I choose not to answer THRIVE Score: 2 RACHAEL-7 AMB Questionnaire RACHAEL-7 Date RACHAEL - 7 assessed: 05/04/25 Not being able to stop or control worryin = Not at all Worrying too much about different things: 0 = Not at all Trouble relaxin = Not at all Being so restless that it is hard to sit still: 1 = Several days Becoming easily annoyed or irritable: 0 = Not at all Feeling afraid as if something awful might happen: 0 = Not at all Source: Developed by Drs. Kory Jerez, Nina Minaya, Basilio Peterson and colleagues, with an educational sheldon from [employer]. Review of Systems Const Reports body aches, Reports chills, Reports fever(s), Denies headache(s) and Denies poor appetite Eyes Reports no additional complaints ENT Denies dysphagia, Denies dizziness, Denies headache(s) and Denies odynophagia Card Denies chest pain, Denies syncope, Denies edema, Denies irregular heart rhythm, Denies lightheadedness and Denies dyspnea Resp Reports cough, Reports excessive phlegm production and Denies dyspnea GI Denies abdominal pain, Denies constipation, Denies dysphagia, Denies diarrhea, Denies nausea, Denies odynophagia and Denies vomiting Reports no additional complaints Musc Reports no additional complaints and Denies abnormal gait Skin/Breast Reports system reviewed and no additional complaints, except as documented Neuro Denies abnormal gait, Denies dizziness, Denies syncope and Denies headache(s) Psych Reports no additional complaints Physical exam (Primary Care) Vital Signs: Last Vital Signs Temp 97.3 F 05/09/25 10:56 Pulse 68 05/09/25 10:56 BP 110/66 05/09/25 10:56 Pulse Ox 97 05/09/25 10:56 Oxygen Delivery Method Room Air 05/09/25 10:56 BMI result Body Mass Index 34.7 Tobacco/Smoking Status: Tobacco use Status Tobacco use date assessed 05/09/25 05/09/25 11:01 Patient Tobacco Use Status Never used Tobacco 05/09/25 10:54 e-Cigarette/Vaping Use Never Used 05/09/25 10:54 Thrive Assessment: Date of Thrive Assessment Date Thrive assessed 05/04/25 05/09/25 10:54 Currently or been in a relationship where the following occur: I choose not to answer Const General: cooperative, healthy appearing, comfortable and no acute distress Orientation/consciousness: patient oriented x3 HENMT Head: Yes normocephalic Ears: hearing grossly normal bilaterally General nose exam: Normal external nose present Eyes General: appearance normal, both eyes and all related structures Conjunctivae: conjunctivae normal Neck Neck: Yes full ROM and Yes no lymphadenopathy Resp Effort & Inspection: normal respiratory effort Auscultation: clear to auscultation bilaterally, no crackles, no rales, no rhonchi and no wheezes Cardio Rate: regular rate Rhythm: regular rhythm Skin General skin exam: no rashes or lesions noted Neuro General: patient oriented x3 Gait exam (Neuro): Normal gait present Extrem General: Yes normal to inspection, Yes full ROM and No edema Psych Affect: normal affect Attitude: cooperative Insight: Good insight present (Psych) Judgement: Good judgement present (Psych) Coding Level of Care Code Est Pt Level 3 (95905) Diagnoses Cough R05.9 Assessment & Plan Assessment & Plan (1) Cough: Code(s): R05.9 - Cough, unspecified Category: Medical Plan: The patient will undergo a chest x-ray to rule out pneumonia due to the presence of fever and productive cough. Mucinex has been prescribed to aid in expectoration of sputum, to be taken twice daily. If the chest x-ray is negative, the patient will continue with Mucinex. If pneumonia is confirmed, antibiotics will be initiated. The patient is advised to continue using her current asthma medication and to avoid hot weather, which exacerbates her asthma symptoms. Follow-up will be arranged based on the chest x-ray results. Plan This note was constructed using voice recognition software. While every effort has been made to ensure accuracy and fiber worker, still areas may have been included sometimes these areas may affect the content or meeting of the given symptoms. Total time spent caring for the patient today was 20 minutes. This includes time spent before the visit reviewing the chart, time spent during the visit, and time spent after the visit and documentation. Patient was informed and verbally consented to the use of an ambient scribe for clinic note documentation during this visit. Orders: Orders XR chest 2V Today R05.9 - Cough, unspecified Medications: New guaifenesin ER (Mucinex) 600 mg PO Q12H PRN 20 tabs 0RF congestion Refilled acetaminophen 650 mg (2 x 325 mg) PO Q6H PRN 60 tabs 3RF Headache/Pain Mild Scale (1-3) 30 days
[2025-05-09 10:56] VITALS: BP 110/66; PULSE 68; TEMP 36.3; O2SAT 97; BMI 34.7
== END 2025-05-09 12:10 | disposition home or self-care (01) ==
LOC: HO.HMCH 10:35
PROVIDERS: PCP Internal Medicine
DX: R05.9 Cough, unspecified (principal)

== ENCOUNTER → 2025-05-09 11:52 | Outpatient (BNV) | payer OTHER, SELFPAY | PROVIDERS: PCP Internal Medicine; Visit Provider Radiology Diagnostic Radiology | DX: R05.9 Cough, unspecified (principal) | CPT/HCPCS: 71046 ==

== ENCOUNTER 2025-06-16 12:07 | Emergency (ER) | payer OTHER, SELFPAY ==
--- NOTE | ~2025-06-16 | US_ITS ---
CLINICAL HISTORY: Pain; Tenderness Venous duplex ultrasound right lower extremity Comparison: None provided Findings: The visualized deep veins are fully compressible with normal Doppler color flow and spectral tracings. No popliteal cyst. IMPRESSION: 1. Negative for right lower extremity deep vein thrombosis. This document has been electronically signed by: Mannie Melo MD on 06/16/2025 23:27:47
--- NOTE | ~2025-06-16 | CT_ITS ---
CLINICAL HISTORY: RLQ Tenderness; ? Appy vs Renal Colic CT abdomen and pelvis with contrast Comparison: None provided. Findings: No consolidation or effusion. The gallbladder and solid organs are within normal limits. No hydronephrosis or hydroureter. Contrast is identified within the bilateral renal collecting systems. No bowel obstruction, pneumoperitoneum, or pneumatosis. Mild bowel wall thickening involving loops of jejunum at the mid to upper left hemiabdomen. There is scattered colonic diverticulosis. No CT evidence for acute diverticulitis. Mesh material in place at the anterior abdominal wall, suggesting prior hernia repair. Pelvic contents unremarkable. The bladder is minimally distended with fluid, limiting its evaluation. Normal appendix. No acute fracture visualized. IMPRESSION: 1. Mild bowel wall thickening involving loops of jejunum at the mid to upper left hemiabdomen, possibly consistent with a mild enteritis. No bowel obstruction. No other CT evidence for an acute inflammatory process identified within the abdomen or pelvis. Normal appendix. 2. Scattered colonic diverticulosis. No CT evidence for acute diverticulitis. This document has been electronically signed by: Manine Melo MD on 06/16/2025 23:15:01
[2025-06-16 12:08] VITALS: BP 165/78; PULSE 72; RESP 18; TEMP 36.7; O2SAT 96; BMI 33.6
--- NOTE | 2025-06-16 12:19 | ED_ITS ---
HPI - Female Genitourinary General Chief complaint: Urogenital-Female Stated complaint: Diff Urinating Back Pain Time Seen by Provider: 06/16/25 19:36 Source: patient Mode of arrival: ambulatory Limitations: no limitations History of Present Illness ED Provider: Gio GOMEZ HPI Narrative: Patient is a 59-year-old female presenting to the ED for evaluation of right- sided flank pain radiating to the right lower quadrant for the past 3 days with associated decreased urination with reported mild dysuria. The patient denies associated hematuria, fever/chills, nausea, vomiting, diarrhea, constipation, chest pain, shortness of breath, or recent sick contacts or trauma. The patient does report she also has some pain radiating from the right lower quadrant into her right thigh and lower leg. Patient denies pleurisy, recent travel, or lower extremity swelling. The patient reports history of a hernia repair approximately 10 years ago, denies other surgical abdominal history. Related Data Home Medications ?Medication ?Instructions ?Recorded ?Confirmed omalizumab 300 mg/2 mL 300 mg subcut Q2W 01/01/25 0 05/09/25 subcutaneous syringe (Xolair) sitagliptin phosphate 50 mg tablet 50 mg PO DAILY 05/09 06/02 (Januvia) sumatriptan succinate 50 mg tablet 50 mg PO 05/25/25 topiramate 25 mg tablet 25 mg PO DAILY 05/25/25 Previous Rx's ?Medication ?Instructions ?Recorded cholecalciferol (vitamin D3) 50 50 mcg PO DAILY #90 ca ps 04/27/24 mcg (2,000 unit) capsule (Vitamin D3) sennosides 8.6 mg tablet (Senna 8.6 mg PO BEDTIME 30 d ays #30 tabs 04/27/24 Lax) sertraline 50 mg tablet 150 mg (3 x 50 mg) PO DAILY 30 04/27/24 days #90 tabs trazodone 50 mg tablet 50 mg PO BEDTIME MRX1 PRN In somnia 04/27/24 30 days #60 tabs aspirin 81 mg chewable tablet 1 tab PO DAILY 30 days # 30 tabs 05/13/24 blood-glucose meter (FreeStyle #1 ea 05/25/24 [place] Lite kit) blood-glucose sensor (FreeStyle #2 ea 05/26/24 [place] 3 Sensor device) blood-glucose,tube sizer operator,cont #1 ea 05/26/24 (FreeStyle [place] 3 [place]) blood sugar diagnostic (FreeStyle #100 ea 05/27/24 Lite Strips) pen needle, diabetic 32 gauge x #50 ea 06/03/24 (BD Ultra-Fine [place] Pen Needle) Shower Chair #1 10/19/24 adult- pull ups large #300 ea 10/19/24 underpads #300 ea 10/19/24 wipes #2 ea 10/19/24 RECLINER #1 ea 12/28/24 lisinopril 5 mg tablet 5 mg PO DAILY 90 days #90 ta bs 12/28/24 montelukast 10 mg tablet 10 mg PO DAILY 90 days #90 t abs 12/28/24 insulin glargine 100 unit/mL (3 10 unit (0.1 mL) subcu t DAILY 30 01/12/25 mL) subcutaneous pen days #3 mL empagliflozin 25 mg tablet 25 mg PO QAM 90 days #90 ta bs 02/23/25 (Jardiance) cane #1 ea 03/09/25 metformin 1,000 mg tablet 1,000 mg PO BID 30 days #60 tabs 03/24/25 RAISED TOILET SEAT with HANDLES #2 ea 03/31/25 atorvastatin 40 mg tablet 40 mg PO BEDTIME 90 days #90 tabs 03/31/25 docusate sodium 100 mg capsule 100 mg PO BID PRN const ipation 30 03/31/25 days #60 caps fluticasone furoate 200 1 inh inhalation DAILY 30 da ys #1 03/31/25 mcg-vilanterol 25 mcg/dose ea inhalation powder (Breo Ellipta) omeprazole 20 mg capsule,delayed 20 mg PO DAILY 90 day s #90 caps 03/31/25 release RECLINER CHAIR #1 04/06/25 albuterol sulfate 90 mcg/actuation 2 puff inhalation Q 6-8H PRN 04/23/25 aerosol inhaler shortness of breath or wheez ing 90 days #3 inhalers acetaminophen 325 mg tablet 650 mg (2 x 325 mg) PO Q6H PRN 05/09/25 Headache/Pain Mild Scale (1-3) 30 days #60 tabs guaifenesin 600 mg tablet, 600 mg PO Q12H PRN congesti on #20 05/09/25 extended release 12 hr (Mucinex) tabs clotrimazole 1 % topical cream 1 appl topical BID 30 d ays #5 grams 05/21/25 tirzepatide 5 mg/0.5 mL 5 mg (0.5 mL) subcut QWEEK 2 8 days 05/29/25 subcutaneous pen injector #2 mL (Mounjaro) Allergies Allergy/AdvReac Type Severity Reaction Status Date / Time egg (EGG) Allergy Intermediate VOMITING Verified 06/16/25 12:15 oxycodone (OXYCODONE) Allergy Intermediate NAUSEA/NIGH Verified 06/16/25 12:15 TMARES Penicillins (PCN) Allergy Intermediate RASH Verified 06/16/25 12:15 tramadol (TRAMADOL) Allergy Intermediate ITCHING Verified 06/16/25 12:15 acetaminophen (Percocet) Allergy Unknown none Verified 06/16/25 12:15 codeine Allergy Unknown nightmares Verified 06/16/25 12:15 Review of Systems 2 Review of Systems: Yes all other systems are reviewed and are negative [facility] Past Medical History Medical History Acute respiratory disease Cerebellar ataxia Primary osteoarthritis of left knee Constipation Contusion of left knee, sequela Muscle strain of right shoulder region Candidal intertrigo Meniere's disease Memory impairment Arthritis Fibromyalgia Diabetic acidosis, type I Obesity (BMI 30-39.9) Depression Anxiety Insomnia Iron deficiency Vitamin D deficiency Osteoarthrosis GERD without esophagitis Allergic rhinitis Pure hypercholesterolemia Diabetes mellitus Benign essential hypertension Fibromyalgia Asthma Obesity Dyslipidemia 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 Maternal Grandmother Breast cancer Social History Social History Household Members: Family Housing: Apartment Do you presently have visiting nurse or other home services: No Alcohol intake: never Patient Tobacco Use Status: Never used Tobacco Smoked in Last 30 Days: No e-Cigarette/Vaping Use: Never Used Second Hand Smoke Exposure: Yes Use of substances other than those prescribed or required for medical reasons: No Advance Directives: No Advance Directives Information Provided: Yes service: No Current occupational status: disabled Current occupational exposures/hazards: No Cognitive needs: Yes (cane) Hearing needs: No Vision needs: Yes (glasses) Physical Exam 2 Vital Signs: Vital Signs: Last Vital Signs Temp 98.1 F 06/16/25 12:08 Pulse 65 06/16/25 19:01 Resp 16 06/16/25 19:01 BP 147/60 H 06/16/25 19:01 Pulse Ox 99 06/16/25 19:01 O2 Del Method Room Air 06/16/25 19:01 BMI result Body Mass Index 33.6 CONSTITUTIONAL: The patient appears non-toxic, well nourished and in no acute distress. Vital signs as documented. HEAD: Atraumatic, normocephalic. EYES: EOMs grossly intact, pupils equal, conjunctiva clear, no exudate. ENT: Nares patent, no discharge. Airway patent, no audible stridor, visible mucosa is pink and moist without noted lesions. NECK: Trachea is midline, no obvious masses or gross abnormalities. CHEST: Symmetric movement, normal appearance. LUNGS: LS present and CTAB, no w/r/r. Non-labored work of breathing. CARDIAC: Regular Rhythm, S1/S2 appreciated, no murmurs, rubs or gallops. ABDOMEN: Abdomen soft x4 quadrants, positive tenderness to palpation of the right lower quadrant, negative rebound, negative guarding, negative Rovsing's. Positive CVAT on the right, negative on the left. No palpable masses or organomegaly. : Deferred. EXTREMITIES: No erythema or swelling noted, there is tenderness to palpation of the medial right thigh and right popliteal fossa, distal CSM intact, 2+ DP/PT pulses. Normal tone, moves all extremities spontaneously without reported pain. No obvious acute injury or deformity noted. NEURO: Alert and oriented x3, CN II-XII appear grossly intact. Cerebellar Functioning grossly intact. No obvious sensory or motor deficits. Speech clear and appropriate. PSYCH: normal affect, appropriate eye contact, fluid speech, with appropriate response to questioning. No reported suicidality or homicidality. SKIN: Warm, dry, color appropriate, normal turgor. No rashes noted. Course Course Course Narrative: RME performed by Queenie Aguilar PA-C. Patient is a 59 year old assigned female at presenting to the emergency department with right sided flank pain and dysuria. Detailed physical exam and review of systems are deferred to the director business development. Labs ordered. Patient placed back in the waiting room pending room availability and results. Medications Administered Discontinued Medications Generic Name Dose Route Start Last Admin Trade Name Aaron PRN Reason Stop Dose Admin Acetaminophen 975 mg 06/16/25 20:43 06/16/25 21:14 Acetaminophen 325 Mg Tablet PO 06/16/25 20:44 975 mg ONCE ONE Administration Sodium Chloride 1,000 mls @ 999 mls/hr 06/16/25 20:45 06/16/25 22:30 Ns IV 06/16/25 21:45 999 mls/hr .Q1H1M DYAN Administration Iohexol 85 ml 06/16/25 22:22 06/16/25 22:23 Iohexol 350 Mg/Ml 100 Ml Infus..Btl IV 06/16/25 22:23 85 ml ONCE ONE Administration Ketorolac Tromethamine 15 mg 06/16/25 23:18 06/16/25 23:23 Ketorolac Tromethamine 15 Mg/Ml Vial IVPUSH 06/16/25 23:19 15 mg ONCE ONE Administration Medical Decision Making Medical Decision Making MDM Narrative: 8:48 PM 06/16/2025 (Nick GOMEZ): The patient is a 59-year-old female presenting to the ED for evaluation of right lower quadrant abdominal pain radiating to the right flank and right thigh/lower extremity. The patient has been experiencing pain for the past 3 days without associated fever/chills, nausea, vomiting, or other acute complaint. Patient does report decreased urination with slight discomfort but denies overt dysuria, denies associated hematuria. Laboratory evaluation in the ED today is reassuring, no leukocytosis, anemia, electrolyte abnormality or TANISHA. The patient's LFTs are unremarkable. Urinalysis shows glucosuria however there is no evidence of UTI. Patient will be treated with IV fluid hydration, Tylenol, and we will send the patient for a CT abdomen and pelvis due to right lower quadrant tenderness. If CT is nondiagnostic patient will be further evaluated with right lower extremity venous duplex. 1:44 AM 06/17/2025 (Nick GOMEZ): The patient reported no significant improvement in pain following Tylenol, patient's CT resulted and showed enteritis but no other acute findings. Following results of CT the patient was treated with Toradol and reports significant improvement in symptoms following Toradol administration. The patient's ultrasound resulted and shows no DVT. Patient's symptoms are likely secondary to acute enteritis. The patient will be discharged with anti-inflammatories, Zofran, and outpatient follow up with PCP. Patient has been educated on the self-limited nature of enteritis and reasons to return to the ED. Admission/Observation Consideration of admission/observation: Escalation of care including admission/observation considered Lab Data MDM Lab Attestation statement: I reviewed the patient's lab results. 06/16/25 12:39 06/16/25 12:39 Labs: Lab Results 06/16/25 06/16/25 Range/Units 12:39 19:13 WBC 7.9 (4.8-10.8) X10*3/uL RBC 5.40 (4.20-5.50) X10*6/uL Hgb 14.1 (12.0-16.0) g/dl Hct 42.0 (37.0-47.0) % MCV 77.8 L (80.0-98.0) fL MCH 26.1 L (27.0-33.0) pg MCHC 33.6 (31.0-35.0) g/dl RDW 14.3 (11.0-16.0) % Plt Count 189 (160-400) X10*3/uL MPV 10.7 (9.4-12.3) fL Immature Gran % (Auto) 0.3 (0.0-0.4) % Neut % (Auto) 60.5 (45-73) % Lymph % (Auto) 32.0 (20-40) % [place] % (Auto) 5.9 (2-11) % Eos % (Auto) 0.9 (0-4) % Baso % (Auto) 0.4 (0-2) % Lymph # (Auto) 2.5 (1.2-4.9) X10*3/uL [place] # (Auto) 0.5 (0.1-1.2) X10*3/uL Eos # (Auto) 0.1 (0.0-0.4) X10*3/uL Baso # (Auto) 0.0 (0.0-0.2) X10*3/uL Abs Immat Gran (auto) 0.02 (0.00-0.03) X10*3/uL Absolute Neuts (auto) 4.8 (2.0-8.3) x10*3/uL Absolute Nucleated RBC 0.000 (0.0-0.012) X10*3/uL Nucleated RBC % (auto) 0.0 (0.0-0.2) /100WBC Sodium 140 (135-145) mmol/L Potassium 4.0 (3.3-5.1) mmol/L Chloride 106 (96-108) mmol/L Carbon Dioxide 25 (22-29) mmol/L Anion Gap 13 (12-20) BUN 17 H (9-16) mg/dL Creatinine 0.62 (0.5-1.4) mg/dL Estim Creat Clear Calc 106.4 Estimated GFR > 60 Random Glucose 175 H (60-115) mg/dL Calcium 9.6 (8.4-10.2) mg/dL Total Bilirubin 0.6 (0.0-1.0) mg/dL AST 24 (5-31) U/L ALT 20 (0-31) U/L Alkaline Phosphatase 91 (39-117) U/L Total Protein 7.2 (6.5-8.0) g/dL Albumin 4.6 (3.5-5.0) g/dL Urine Color Yellow Urine Appearance Clear Urine pH 5.5 (5.0-9.0) Ur Specific [place] >= 1.030 H (1.005-1.025) Urine Protein Negative (Neg-Trace) mg/dL Urine Glucose (UA) >=1000 H (Negative) mg/dL Urine Ketones Negative (Negative) mg/dL Urine Blood Negative (Negative) Urine Nitrite Negative (Negative) Ur Leukocyte Esterase Negative (Negative) Urine RBC 0-2 (0-2) /HPF Urine WBC 0-5 (0-5) /HPF Ur Squamous Epith Cells 0-2 (0-2) /HPF Urine Bacteria None Seen (None Seen) Hyaline Casts 0-2 (0-2) /LPF Radiology Impression Discussion of test interpretation with radiology: I have reviewed the radiologist's reading. Radiologist Impression: CLINICAL HISTORY: RLQ Tenderness; ? Appy vs Renal Colic CT abdomen and pelvis with contrast Comparison: None provided. Findings: No consolidation or effusion. The gallbladder and solid organs are within normal limits. No hydronephrosis or hydroureter. Contrast is identified within the bilateral renal collecting systems. No bowel obstruction, pneumoperitoneum, or pneumatosis. Mild bowel wall thickening involving loops of jejunum at the mid to upper left hemiabdomen. There is scattered colonic diverticulosis. No CT evidence for acute diverticulitis. Mesh material in place at the anterior abdominal wall, suggesting prior hernia repair. Pelvic contents unremarkable. The bladder is minimally distended with fluid, limiting its evaluation. Normal appendix. No acute fracture visualized. IMPRESSION: 1. Mild bowel wall thickening involving loops of jejunum at the mid to upper left hemiabdomen, possibly consistent with a mild enteritis. No bowel obstruction. No other CT evidence for an acute inflammatory process identified within the abdomen or pelvis. Normal appendix. 2. Scattered colonic diverticulosis. No CT evidence for acute diverticulitis. This document has been electronically signed by: Mannie Melo MD on 06/16/2025 23:15:01 Venous duplex ultrasound right lower extremity Comparison: None provided Findings: The visualized deep veins are fully compressible with normal Doppler color flow and spectral tracings. No popliteal cyst. IMPRESSION: 1. Negative for right lower extremity deep vein thrombosis. This document has been electronically signed by: Mannie Melo MD on 06/16/2025 23:27:47 Discharge Plan Discharge Clinical Impression: Enteritis Patient Disposition: Home, Self-Care Instructions: Enteritis (ED) Additional Instructions: Thank you for choosing [facility] Emergency Department for your care today. Thankfully your laboratory evaluation, urinalysis, CT, ultrasound, and exam today are reassuring. At this time there is no indication for admission to the hospital or continued ED observation, and it is safe to discharge you home. Your pain is likely related to inflammation of your small intestine from a viral illness, a condition known as enteritis. This illness is not caused by a bacteria, does not require antibiotics, and should begin to improve in the next 2-3 days. You may take alternating (staggered) doses of ibuprofen 600mg and Tylenol 1000mg every 4 hours as needed for any additional pain. Please stay well hydrated and get plenty of rest. Please follow up with your primary care physician for re-evaluation, additional management of your symptoms, and continued preventative care. If you do not have a primary care physician, please call the [facility] at [phone] to establish a new primary care physician. While waiting to establish your new primary care physician, you can call our [facility] at [phone] for non-emergency needs. Please return to the emergency department if you develop a severe or sudden change in your symptoms, a fever over 100.4 that does not improve with Tylenol or Ibuprofen, recurrent vomiting, or any other new or worsening symptoms or concerns. Prescriptions: No Action aspirin 81 mg tablet,chewable 1 tab PO DAILY 30 Days Qty: 30 3RF (DME) FreeStyle [place] 3 [place] Misc See Rx Instructions .Route Qty: 1 0RF Rx Instructions: As directed (DME) FreeStyle [place] 3 Sensor Device See Rx Instructions .Route Qty: 2 11RF Rx Instructions: As directed (DME) FreeStyle Lite Strips Strip See Rx Instructions .Route Qty: 100 6RF Rx Instructions: 3 times daily (DME) underpads Pad See Rx Instructions .Route Qty: 300 2RF Rx Instructions: As directed (DME) Shower Chair Misc See Rx Instructions .Route Qty: 1 0RF Rx Instructions: As directed (DME) wipes See Rx Instructions .Route .MEDSUPPLY Qty: 2 3RF Rx Instructions: As directed (DME) adult- pull ups large See Rx Instructions .Route .MEDSUPPLY Qty: 300 2RF Rx Instructions: As directed Jardiance 25 mg tablet 25 mg PO QAM 90 Days Qty: 90 3RF (DME) cane Device See Rx Instructions .Route Qty: 1 0RF Rx Instructions: As directed metformin 1,000 mg tablet 1,000 mg PO BID 30 Days Qty: 60 3RF (DME) RECLINER CHAIR See Rx Instructions .Route .MEDSUPPLY Qty: 1 0RF Rx Instructions: As directed albuterol sulfate 90 mcg/actuation HFA aerosol inhaler 2 puff inhalation Q6-8H PRN (Reason: shortness of breath or wheezing) 90 Days Qty: 3 3RF clotrimazole 1 % cream 1 appl topical BID 30 Days Qty: 5 0RF Protocol: Apply to: Apply to: sole both feet Mounjaro 5 mg/0.5 mL pen injector 5 mg subcut QWEEK 28 Days Qty: 2 0RF sennosides [Senna Lax] 8.6 mg Tablet 8.6 mg PO BEDTIME 30 Days Qty: 30 0RF trazodone 50 mg Tablet 50 mg PO BEDTIME MRX1 PRN (Reason: Insomnia) 30 Days Qty: 60 0RF sertraline 50 mg Tablet 150 mg PO DAILY 30 Days Qty: 90 0RF cholecalciferol (vitamin D3) [Vitamin D3] 50 mcg (2,000 unit) capsule 50 mcg PO DAILY Qty: 90 1RF (DME) blood-glucose meter [FreeStyle [place] Lite] Kit See Rx Instructions .Route Qty: 1 1RF Rx Instructions: As directed insulin glargine 100 unit/mL (3 mL) insulin pen 10 unit subcut DAILY 30 Days Qty: 3 6RF lisinopril 5 mg tablet 5 mg PO DAILY 90 Days Qty: 90 3RF montelukast 10 mg tablet 10 mg PO DAILY 90 Days Qty: 90 3RF (DME) RECLINER See Rx Instructions .Route .MEDSUPPLY Qty: 1 0RF Rx Instructions: As directed Xolair 300 mg/2 mL syringe 300 mg subcut Q2W Rx Instructions: requires multiple injection sites; do not exceed 150 mg per injection site atorvastatin 40 mg tablet 40 mg PO BEDTIME 90 Days Qty: 90 1RF omeprazole 20 mg capsule,delayed release(DR/EC) 20 mg PO DAILY 90 Days Qty: 90 3RF docusate sodium 100 mg capsule 100 mg PO BID PRN (Reason: constipation) 30 Days Qty: 60 5RF fluticasone furoate-vilanterol [Breo Ellipta] 200-25 mcg/dose blister with device 1 inh inhalation DAILY 30 Days Qty: 1 6RF (DME) RAISED TOILET SEAT with HANDLES See Rx Instructions .Route .MEDSUPPLY Qty: 2 0RF Rx Instructions: As directed sumatriptan succinate 50 mg tablet 50 mg PO topiramate 25 mg tablet 25 mg PO DAILY Januvia 50 mg tablet 50 mg PO DAILY (DME) pen needle, diabetic [BD Ultra-Fine [place] Pen Needle] 32 gauge x 5/32 needle See Rx Instructions .Route Qty: 50 11RF Rx Instructions: As directed guaifenesin [Mucinex] 600 mg tablet extended release 12hr 600 mg PO Q12H PRN (Reason: congestion) Qty: 20 0RF acetaminophen 325 mg tablet 650 mg PO Q6H PRN (Reason: Headache/Pain Mild Scale (1-3)) 30 Days Qty: 60 3RF Referrals: Dwayne Stone MD [Primary Care Provider, Internal Medicine] Clinical Impression: Enteritis Print Language: Estonian
[2025-06-16 12:43] LABS: MANUAL DIFF FLAG NO
[2025-06-16 12:49] LABS: Hematocrit 42.0 % (37.0-47.0); Hemoglobin 14.1 g/dl (12.0-16.0); Imm Gran Abs Auto 0.02 X10*3/uL (0.00-0.03); Imm Gran Pct Auto 0.3 % (0.0-0.4); Lymphocytes Absolute Auto 2.5 X10*3/uL (1.2-4.9); Mean Corpuscular HGB Conc 33.6 g/dl (31.0-35.0); Mean Corpuscular Hemoglobin 26.1 pg (27.0-33.0); Mean Corpuscular Volume 77.8 fL (80.0-98.0); NRBC Abs Auto 0.000 X10*3/uL (0.0-0.012); NRBC Pct Auto 0.0 /100WBC (0.0-0.2); Platelet Count 189 X10*3/uL (160-400); Red Blood Count 5.40 X10*6/uL (4.20-5.50); White Blood Count 7.9 X10*3/uL (4.8-10.8)
[2025-06-16 13:05] LABS: Alanine Aminotransferase 20 U/L (0-31); Albumin Level 4.6 g/dL (3.5-5.0); Alkaline Phosphatase 91 U/L (39-117); Anion Gap 13 (12-20); Aspartate Amino Transferase 24 U/L (5-31); Blood Urea Nitrogen 17 mg/dL (9-16); Calcium 9.6 mg/dL (8.4-10.2); Carbon Dioxide 25 mmol/L (22-29); Chloride 106 mmol/L (96-108); Creatinine Clr Calc Pharmacy 106.4; Estimated Glomerular Filt Rate > 60; Potassium 4.0 mmol/L (3.3-5.1); Sodium 140 mmol/L (135-145); Total Protein 7.2 g/dL (6.5-8.0)
[2025-06-16 19:01] VITALS: BP 147/60; PULSE 65; RESP 16; O2SAT 99
[2025-06-16 19:20] LABS: Appearance Urine Clear; Glucose Urine UA >=1000 mg/dL (Negative); PH 5.5 (5.0-9.0); Specific Gravity - Urine >= 1.030 (1.005-1.025); UMIC TRIGGER UACC YES
[2025-06-16] MEDS: iohexoL 350 MG/ML 100 ML INFUS..BTL 85 ML IV (22:23)
[2025-06-17 02:01] VITALS: BP 106/57; PULSE 54; RESP 16; TEMP 36.6; O2SAT 97
[2025-06-17 02:32] VITALS: BP 116/67; PULSE 62; RESP 18; TEMP 36.7; O2SAT 99
== END 2025-06-17 02:33 | disposition home or self-care (01) ==
PROVIDERS: Physician Assistant Medical; Emergency Provider Emergency Medicine; PCP Internal Medicine
DX: K52.9 Noninfective gastroenteritis and colitis, unspecified (principal); R10.31 Right lower quadrant pain; R30.0 Dysuria; M79.604 Pain in right leg; E11.9 Type 2 diabetes mellitus without complications; I10 Essential (primary) hypertension; Z79.899 Other long term (current) drug therapy
CPT/HCPCS: 36415; 74177; 80053; 81001; 85025; 93971; 96374; 99284; 99285; J1885; Q9967

== ENCOUNTER → 2025-06-16 20:43 | Outpatient (BNV) | payer OTHER, SELFPAY | PROVIDERS: Emergency Provider Emergency Medicine; PCP Internal Medicine; Visit Provider Radiology Diagnostic Radiology | DX: M79.661 Pain in right lower leg (principal); R10.813 Right lower quadrant abdominal tenderness | CPT/HCPCS: 74177; 93971 ==

== ENCOUNTER 2025-07-17 17:17 | Outpatient (AMB) | payer OTHER, SELFPAY ==
[2025-07-17 17:23] VITALS: BP 118/72; PULSE 69; O2SAT 98; BMI 33.3
--- NOTE | 2025-07-17 17:23 | MHC.PC.OV ---
Vital Signs 07/17/25 17:23 Height 5 ft 5 in Weight 200 lb BMI 33.3 BP 118/72 Blood Pressure Location Lt brachial Position Sitting Pulse 69 Pulse Source Pulse Oximeter Pulse Oximetry (%) 98 Oxygen Delivery Method Room Air Intake Visit Reasons: Annual pe Intake Note: Had a fall a couple days and is sore on right. Allergies egg (EGG) Allergy (Intermediate, Verified 07/17/25 17:42) VOMITING oxycodone (OXYCODONE) Allergy (Intermediate, Verified 07/17/25 17:42) NAUSEA/NIGHTMARES Penicillins (PCN) Allergy (Intermediate, Verified 07/17/25 17:42) RASH tramadol (TRAMADOL) Allergy (Intermediate, Verified 07/17/25 17:42) ITCHING acetaminophen (Percocet) Allergy (Unknown, Verified 07/17/25 17:42) none codeine Allergy (Unknown, Verified 07/17/25 17:42) nightmares Medication List - Last Reconciled 07/17/25 by Dwayne Stone MD acetaminophen 650 mg (2 x 325 mg) PO Q6H PRN 30 days [adult- pull ups large As directed] albuterol sulfate 90 mcg/actuation 2 puffs inhalation Q6-8H PRN 90 days aspirin 1 tab PO DAILY 30 days atorvastatin 40 mg PO BEDTIME 90 days blood sugar diagnostic (FreeStyle Lite Strips) 3 times daily blood-glucose meter (FreeStyle [place] Lite kit) As directed blood-glucose sensor (FreeStyle [place] 3 Sensor device) As directed blood-glucose,jailer/training officer,cont (FreeStyle [place] 3 [place]) As directed cane As directed cholecalciferol (vitamin D3) (Vitamin D3) 50 mcg PO DAILY clotrimazole 1% 1 appl See Protocol topical BID 30 days docusate sodium 100 mg PO BID PRN 30 days duloxetine 60 mg PO DAILY empagliflozin (Jardiance) 25 mg PO QAM 90 days fluticasone furoate-vilanterol 200-25 mcg/dose (Breo Ellipta) 1 inh inhalation DAILY 30 days guaifenesin ER (Mucinex) 600 mg PO Q12H PRN insulin glargine 10 units (0.1 mL) subcut DAILY 30 days lisinopril 5 mg PO DAILY 90 days metformin 1,000 mg PO BID 30 days montelukast 10 mg PO DAILY 90 days omalizumab (Xolair) 300 mg subcut Q2W omeprazole 20 mg PO DAILY 90 days pen needle, diabetic (BD Ultra-Fine Pippa Pen Needle) As directed [RAISED TOILET SEAT with HANDLES As directed] [RECLINER As directed] [RECLINER CHAIR As directed] sennosides (Senna Lax) 8.6 mg PO BEDTIME 30 days sertraline 150 mg (3 x 50 mg) PO DAILY 30 days sertraline 100 mg PO DAILY Shower Chair As directed sitagliptin phosphate (Januvia) 50 mg PO DAILY sumatriptan succinate 50 mg PO tirzepatide (Mounjaro) 5 mg (0.5 mL) subcut QWEEK 28 days topiramate 25 mg PO DAILY trazodone 50 mg PO BEDTIME MRX1 PRN 30 days underpads As directed [wipes As directed] Tobacco use date assessed: 05/09/25 Dental Screening Dental Screen Date: 05/04/25 HPI Annual pe HPI Details Patient comes in today for her annual physical examination States that she continues to experience increased diffuse pain due to her fibromyalgia Relates that she fell on her right side a couple of days ago and her right side feels even more sore than usual but she does not think she sustained any other significant injuries and she denies hitting her head when she fell States that she was on Duloxetine 60 mg BID previously but her psychiatrist cut her down to once a day as she is also on Sertraline and her psychiatrist felt that 60 mg BID would be too much antidepressants for her to be on She reports experiencing increasing numbness and tingling sensation in her right hand and arm and states that the symptoms used to occur on and off but are now persistent She has also noticed some weakness in her right hand 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 She denies any headaches or dizziness Denies any chest pains, no increased SOB No nausea/vomiting but reports that she has been experiencing right-sided abdominal pains for the past few weeks now Relates (+) recurrent diarrhea, including postprandially, for at least 3 to 4 few weeks now She denies seeing any blood in her stool lately Denies any acute urinary symptoms Needs her topical Diclofenac Rx refilled She was not able to get her follow up labs done prior to coming in for her appointment today - states that she will try to get these done MARTHA She had her screening colonoscopy last done by Dr. Arechiga on 06/21/2020 and was recommended for repeat colonoscopy in 5 years so she is now due for her repeat procedure Her annual mammogram was last done in 06/2024 so she is also now due for her yearly exam She has a gynecology appointment scheduled with Dr. Murcia in a few months in November 2025 Her BMD was last done on 04/22/23 - (+) osteopenia PFSH Medical History (Updated 07/18/25 @ 04:30 by Dwayne Stone MD) Acute respiratory disease Cerebellar ataxia Primary osteoarthritis of left knee Constipation Candidal intertrigo Meniere's disease Memory impairment Arthritis Diabetic acidosis, type I Obesity (BMI 30-39.9) Depression Anxiety Insomnia Iron deficiency Vitamin D deficiency Osteoarthrosis GERD without esophagitis Allergic rhinitis Pure hypercholesterolemia Diabetes mellitus Benign essential hypertension Fibromyalgia Asthma detention (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 Diabetic nephropathy associated with type 2 diabetes mellitus Surgical History (Updated 07/18/25 @ 03:43 by Dwayne Stone MD) History of colonoscopy Hx of hernia repair History of loop electrical excision procedure (LEEP) Family History Father Diabetes Mother No problems noted. Maternal Grandmother Breast cancer Social History Household Members: Family Housing: Apartment Do you presently have visiting nurse or other home services: No Alcohol intake: never Patient Tobacco Use Status: Never used Tobacco Tobacco use type: Cigarette e-Cigarette/Vaping Use: Never Used Second Hand Smoke Exposure: Yes service: No Current occupational status: disabled Current occupational exposures/hazards: No Cognitive needs: Yes (cane) Hearing needs: No Vision needs: Yes (glasses) Female Reproductive History Menstrual Age of Menarche: 10 Questionnaire PHQ-9 Over the last 2 weeks, how often have you been bothered by any of the following problems? 1. Little interest or pleasure in doing things: not at all 2. Feeling down, depressed, or hopeless: not at all 3. Trouble falling or staying asleep, or sleeping too much: nearly every day 4. Feeling tired or having little energy: not at all 5. Poor appetite or overeating: not at all 6. Feeling bad about yourself - or that you are a failure or have let yourself or your family down: not at all 7. Trouble concentrating on things, such as reading the newspaper or watching television: not at all 8. Moving or speaking so slowly that other people could have noticed. Or the opposite - being so fidgety or restless that you have been moving around a lot more than usual: more than half the days 9. Thoughts that you would be better off or of hurting yourself in some way: not at all Total score: 5 Depression Screening Interpretation: Positive Depression Screening Follow-up: Existing condition and In treatment Depression Screening Done: Yes 30494 - PHQ-9 Billing: Yes Source: Developed by Drs. Kory Jerez, Nina Minaya, Basilio Peterson and colleagues, with an educational sheldon from [employer]. Thrive Questionnaire Date Thrive assessed: 05/04/25 I am a: Patient What is your living situation today?: I have a steady place to live Within the past 12 months, did the food you bought not last and you didn't have the money to get more?: Often true Within the past 12 months, did you worry whether your food would run out before you got money to buy more?: Often true Do you have trouble paying for medicines?: No Do you have trouble getting transportation to medical appointments?: No Do you have trouble paying your heating and electricity bill?: I choose not to answer this question Do you have trouble taking care of your child, family member or friend?: No Do you have trouble with day-to-day activities such as bathing, preparing meals, shopping, managing finances, etc.?: No Are you currently unemployed and looking for a job?: No Are you interested in more education?: No Please select the resources that you would like help with: None Currently or been in a relationship where the following occur: I choose not to answer THRIVE Score: 2 AUDIT C Alcohol Use Questionnaire (AUDIT-C) 1. How often do you have a drink containing alcohol?: Never 3. How often do you have six or more drinks on one occasion?: Never Total Score: 0 Score Reviewed/Action Taken: Yes RACHAEL-7 AMB Questionnaire RACHAEL-7 Date RACHAEL - 7 assessed: 05/04/25 Source: Developed by Drs. Kory Jerez, Nina Minaya, Basilio Peterson and colleagues, with an educational sheldon from [employer]. Review of Systems Const Denies chills, Reports difficulty sleeping, Reports fatigue, Denies fever(s) and Denies headache(s) Eyes Denies blurry vision, Denies change in vision, Denies irritation and Denies itchy eyes ENT Denies dysphagia, Denies dizziness, Denies otalgia, Denies headache(s), Denies nasal congestion, Denies neck pain, Denies odynophagia and Denies sore throat Card Denies chest pain, Denies irregular heart rhythm, Denies palpitations and Denies dyspnea Resp Denies chest congestion, Denies cough, Denies dyspnea and Denies wheezing GI Reports abdominal pain (recurrent over the right side of the abdomen x few weeks), Denies hematochezia, Denies constipation, Denies dysphagia, Denies heartburn, Reports loose stools (frequent, including postprandially, x few weeksssssssss), Denies nausea, Denies odynophagia and Denies vomiting Denies hematuria, Denies difficulty voiding, Denies nocturia, Denies dysuria, Reports urinary incontinence (at times, mostly urge incontinence) and Denies urinary urgency Musc Reports abnormal gait (unsteady), Reports back pain (over the lower back), Reports myalgias (diffuse), Reports arthralgias (involving multiple joints, especially over her L knee and R shoulder), Denies neck pain, Reports numbness (in her right hand) and Reports tingling (in the right hand and right arm, on and off) Skin/Breast Denies lesions and Denies rash Neuro Reports abnormal gait (unsteady), Denies dizziness, Denies headache(s), Reports numbness (in her right hand) and Reports tingling (in the right hand and right arm, on and off) Psych Denies anxiety and Reports depression (is controlled on meds ) Endo Reports fatigue and Denies palpitations Jerson/Lymph Denies easy bruising Aller/Immun Denies itchy eyes and Denies wheezing Physical exam (Primary Care) Vital Signs: Last Vital Signs Pulse 69 07/17/25 17:23 BP 118/72 07/17/25 17:23 Pulse Ox 98 07/17/25 17:23 Oxygen Delivery Method Room Air 07/17/25 17:23 BMI result Body Mass Index 33.3 Tobacco/Smoking Status: Tobacco use Status Tobacco use date assessed 05/09/25 07/17/25 17:24 Patient Tobacco Use Status Never used Tobacco 07/17/25 17:24 Tobacco use type Cigarette 07/17/25 17:24 e-Cigarette/Vaping Use Never Used 07/17/25 17:24 PHQ-9: PHQ-9 Score PHQ-9: Total score 5 07/17/25 17:39 Depression Screening Interpretation: Positive Depression Screening Follow-up: Existing condition and In treatment Thrive Assessment: Date of Thrive Assessment Date Thrive assessed 05/04/25 07/17/25 17:24 Currently or been in a relationship where the following occur: I choose not to answer Const General: no acute distress and alert Orientation/consciousness: patient oriented x3 HENMT Head: Yes normocephalic and Yes atraumatic Ears: TM's normal bilaterally and EAC's normal General nose exam: No nasal discharge present Face and sinus: Yes normal facial exam and Yes sinuses nontender Teeth and gingiva: dentition normal Throat: Yes posterior oropharynx normal and Yes tonsils normal (no TP congestion noted) Eyes Eyelids: Yes eyelids normal Conjunctivae: conjunctivae normal Pupils: Equal, round and reactive pupils present EOM: EOMs intact bilaterally Neck Neck: Yes supple and No lymphadenopathy Thyroid: Thyroid normal Resp Auscultation: clear to auscultation bilaterally, no rales and no wheezes Cardio Rate: regular rate Rhythm: regular rhythm Heart sounds: no murmurs GI Palpation (GI): Soft to palpation, Tenderness to palpation present (GI) (mild, over the right side of the abdomen), no guarding, not rigid and No Rebound tenderness present Auscultation: normal bowel sounds General: Yes no CVA tenderness Back/Spine/Pelvis Back: no CVA tenderness Thoracic/Lumbar Spine: paraspinal muscle tenderness bilaterally in the lower thoracic, in the upper lumbar, in the mid lumbar and in the lower lumbar and lumbar spinal tenderness Skin Lesions: no lesions Rashes: no rashes Neuro General: patient oriented x3, moves all extremities, no focal motor deficits and CN's II-XI intact bilaterally Cranial nerves: Yes Equal, round and reactive pupils present Cognition (Neuro): normal cognition Gait exam (Neuro): Assisted gait required Gait assisted method: walker Extrem General: Yes no clubbing, cyanosis or edema Right upper extremity: shoulder/upper arm Details: tenderness Location: of the A-C joint and of the scapula; no swelling Left upper extremity: elbow/forearm Details: tenderness; no swelling Right lower extremity: knee Details: tenderness Results AMB Hemoglobin A1c AMB Hemoglobin A1c 7.2 % Last Edit by Aleksandra Venegas CMA on 07/17/25 17:39 Results Reviewed Results Reviewed: Laboratory Last Values Hgb A1c (Clinic) 7.2 % (4.0-6.0) H 07/17/25 17:25 Coding Level of Care Code Est Pt Prev Care 40-64y(64153) Diagnoses Annual physical exam Z00.00 Enteritis K52.9 Paresthesia of right upper extremity R20.2 Type 2 diabetes mellitus without complication, with long-term current use of insulin E11.9; Z79.4 Diabetes mellitus type: type 2 Diabetes mellitus exterminator helper insulin use: with senior care use Diabetes mellitus complication status: without complication Pure hypercholesterolemia E78.00 Benign essential hypertension I10 Cerebellar ataxia G11.9 GERD without esophagitis K21.9 Moderate persistent asthma without complication J45.40 Asthma severity: moderate Asthma persistence: persistent Asthma complication type: uncomplicated Primary osteoarthritis, unspecified site M19.91 Osteoarthritis location: unspecified site Osteoarthritis type: primary Primary osteoarthritis of left knee M17.12 Allergic rhinitis, unspecified seasonality, unspecified trigger J30.9 Allergic rhinitis trigger: unspecified Allergic rhinitis seasonality: unspecified Vitamin D deficiency E55.9 Constipation, unspecified constipation type K59.00 Constipation type: unspecified constipation type Fibromyalgia M79.7 Insomnia, unspecified type G47.00 Insomnia type: unspecified Anxiety F41.9 MDD (major depressive disorder), recurrent episode, moderate F33.1 Obesity (BMI 30-39.9) E66.9 Colon cancer screening Z12.11 Breast cancer screening by mammogram Z12.31 Additional Codes PHQ-9 - 01572 - PHQ-9 Billing: Yes ([id number]) Assessment & Plan Assessment & Plan (1) Annual physical exam: Code(s): Z00.00 - Encounter for general adult medical examination without abnormal findings Category: Medical Plan: Check labs MARTHA - patient was not able to get previously ordered labs done prior to coming in today and she is advised to try and get these done MARTHA She had her screening colonoscopy last done by Dr. Arechiga on 06/21/2020 and was recommended for repeat colonoscopy in 5 years so she is now due for her repeat procedure Her annual mammogram was last done in 06/2024 so she is also now due for her yearly exam She has a gynecology appointment scheduled with Dr. Murcia in a few months in November 2025 Her BMD was last done on 04/22/23 - (+) osteopenia (2) Enteritis: Code(s): K52.9 - Noninfective gastroenteritis and colitis, unspecified Category: Medical Plan: Patient was seen at the ER for this last month but her symptoms appear to have persistent since Abdominal and pelvic CT done at the ER last month revealed (+) mild bowel wall thickening involving loops of jejunum at the mid to upper left hemiabdomen, possibly consistent with a mild enteritis She was advised that her enteritis is most likely viral in etiology and was not prescribed any Abx for Tx but as her symptoms have been going on for a few weeks now, will go ahead and start her on empiric Abx Tx with oral Levofloxacin 500 mg QD x 7 days She is also being referred to GI for repeat colonscopy and will include this in the reason for referral so GI can look into this as well when she has her repeat colonoscopy done, especially if she does not respond to empiric Abx Tx (3) Paresthesia of right upper extremity: Code(s): R20.2 - Paresthesia of skin Category: Medical Plan: Suspect that patient may have some form of neuropathy in her right arm, including possible median neuropathy Will send patient for EMG and NCV of the right arm for further evaluation Will also include some additional labs to her current orders, for further evaluation of patient's right arm symptoms (4) Diabetes mellitus: Code(s): E11.9 - Type 2 diabetes mellitus without complications Category: Medical Qualifiers: Diabetes mellitus type: type 2 Diabetes 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 care insulin use: with senior care use Diabetes mellitus complication status: without complication Qualified Code(s): E11.9 - Type 2 diabetes mellitus without complications; Z79.4 - vermin exterminator (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 Plan: Her in-office HgbA1c today is at 7.2% (HgbA1c was previously at 6.7% a few months ago) - goal is least <7.0% but ideally <6.5% Reinforced diabetic diet Continue Metformin 1000 mg BID, Jardiance 25 mg QD and Mounjaro 7.5 mg SQ once a week Her Lantus was held by endocrinology last year due to her well-controlled diabetes Follow-up with endocrinology as scheduled (5) Pure hypercholesterolemia: Code(s): E78.00 - Pure hypercholesterolemia, unspecified Category: Medical Plan: Patient states that she will try to get her follow up labs done MARTHA Reinforced low-cholesterol diet Continue Atorvastatin 40 mg QD Will recheck her labs and fasting lipids again in 3 months for follow-up (6) Benign essential hypertension: Code(s): I10 - Essential (primary) hypertension Category: Medical Plan: Reinforced low sodium diet - goal is systolic BP of at least 120 to 130 mm or less Continue Lisinopril 5 mg QD (7) Cerebellar ataxia: Code(s): G11.9 - Hereditary ataxia, unspecified Category: Medical Plan: She was diagnosed by neurology in September 2022 with cerebellar ataxia, when she was referred for further evaluation of her recurrent dizziness MRI of the brain done in September 2022 revealed (+) scattered nonspecific white matter T2 hyperintensities in both cerebral hemispheres with no evidence for acute or subacute cerebral ischemia, hemorrhage, extra-axial fluid collection, space-occupying process, mass effect or hydrocephalus Follow up with neurology as scheduled (8) GERD without esophagitis: Code(s): K21.9 - Gastro-esophageal reflux disease without esophagitis Category: Medical Plan: Dietary restrictions reinforced Continue Omeprazole 20 mg QD (9) Asthma: Code(s): J45.909 - Unspecified asthma, uncomplicated Category: Medical Qualifiers: Asthma severity: moderate Asthma persistence: persistent Asthma complication type: uncomplicated Qualified Code(s): J45.40 - Moderate persistent asthma, uncomplicated Plan: Patient started her Xolair injections at 300 mg SQ every 2 weeks a few months ago and that her asthma has been much better controlled lately Continue Breo Ellipta 225 mcg 1 inhalation QD and Albuterol HFA 1-2 inhalations every 6 hours PRN Follow-up with pulmonary as scheduled (10) Osteoarthrosis: Code(s): M19.90 - Unspecified osteoarthritis, unspecified site Category: Medical Qualifiers: Osteoarthritis location: unspecified site Osteoarthritis type: primary Qualified Code(s): M19.91 - Primary osteoarthritis, unspecified site Plan: X-rays of both hands done a couple of years ago showed (+) mild OA changes in the right hand; left hand x-rays were normal except for an old metacarpal fracture that has since healed She was diagnosed with polyarthralgia by Rheumatology a couple of years ago and is currently requesting for a referral again to rheumatology as she has not been seen in a while - referral to rheumatology was placed a few months ago and she is now scheduled to be seen by Dr. Allison in January 2026 She is encouraged again on regular hand exercises to help minimize her hand stiffness and pain Continue Tramadol 50 mg TID PRN and Tylenol Arthritis 650 mg 3 times a day as needed, Piroxicam 10 mg once a day with food as needed and Diclofenac 1% topical Gel TID PRN (Rx refillled) Follow up with orthopedics as scheduled (11) Primary osteoarthritis of left knee: Code(s): M17.12 - Unilateral primary osteoarthritis, left knee Category: Medical Plan: X-rays of the left knee done last year revealed (+) moderate degenerative changes Will consider orthopedic referral if her knee pain gets worse (12) Allergic rhinitis: Code(s): J30.9 - Allergic rhinitis, unspecified Category: Medical Qualifiers: Allergic rhinitis trigger: unspecified Allergic rhinitis seasonality: unspecified Qualified Code(s): J30.9 - Allergic rhinitis, unspecified Plan: Continue Montelukast 10 mg QD, Loratadine 10 mg QD PRN and Fluticasone 50 mcg nasal spray QD PRN (13) Vitamin D deficiency: Code(s): E55.9 - Vitamin D deficiency, unspecified Category: Medical Plan: Continue Vitamin D3 2000 units QD (14) Constipation: Code(s): K59.00 - Constipation, unspecified Category: Medical Qualifiers: Constipation type: unspecified constipation type Qualified Code(s): K59.00 - Constipation, unspecified Plan: Improved; reinforced increased oral fluids and dietary fiber Continue Senna 8.6 mg QD PRN (15) Fibromyalgia: Code(s): M79.7 - Fibromyalgia Category: Medical Plan: Patient is encouraged again on regular exercise and physical activity to help manage her fibromyalgia symptoms Continue Duloxetine 60 mg once a day and Tizanidine 4 mg Q HS PRN Continue Pregabalin 50 mg BID - she is tolerating Lyrica so far (she was taken off Gabapentin previously as she was concerned that the medication was affecting her memory) (16) Insomnia: Code(s): G47.00 - Insomnia, unspecified Category: Medical Qualifiers: Insomnia type: unspecified Qualified Code(s): G47.00 - Insomnia, unspecified Plan: Sleep hygiene reinforced Continue Trazodone 50 mg Q HS PRN (17) Anxiety: Code(s): F41.9 - Anxiety disorder, unspecified Category: Medical Plan: Continue Lorazepam 0.5 mg Q HS PRN and Hydroxyzine 25 mg 3 times a day as needed (18) MDD (major depressive disorder), recurrent episode, moderate: Code(s): F33.1 - Major depressive disorder, recurrent, moderate Category: Medical Plan: Continue Sertraline 100 mg QD; it appears that she was switched out from her previousl Wellbutrin XL by psychiatry Follow-up with Psychiatry as scheduled (19) Obesity (BMI 30-39.9): Code(s): E66.9 - Obesity, unspecified Category: Medical Plan: Reinforced diet; exercise and weight loss are unrealistic given patient's physical issues and multiple comorbidities (20) Colon cancer screening: Code(s): Z12.11 - Encounter for screening for malignant neoplasm of colon Category: Medical Plan: Will refer patient back to [facility] for repeat colonoscopy (21) Breast cancer screening by mammogram: Code(s): Z12.31 - Encounter for screening mammogram for malignant neoplasm of breast Category: Medical Plan: Will send patient for her annual mamography Plan Follow up in 3 months Orders: Orders NE nerve conduction velocity 07/17/25 R20.2 - Paresthesia of skin, R29.898 - Other symptoms and signs involving the musculoskeletal system Vitamin B12 and Folate 07/17/25 E53.8 - Deficiency of other specified B group vitamins Hemoglobin A1c 3 Months E11.9 - Type 2 diabetes mellitus without complications Lipid Panel 3 Months E78.00 - Pure hypercholesterolemia, unspecified Vitamin B12 and Folate 3 Months E53.8 - Deficiency of other specified B group vitamins Vitamin D 25-OH Total 3 Months E55.9 - Vitamin D deficiency, unspecified TSH reflex Free T4 3 Months E78.00 - Pure hypercholesterolemia, unspecified AMB Hemoglobin A1c 09/08/25 Z13.9 - Encounter for screening, unspecified NE electromyogram (EMG) 07/17/25 R20.2 - Paresthesia of skin, R29.898 - Other symptoms and signs involving the musculoskeletal system MM tomosynthesis screening BI 07/17/25 Z12.31 - Encounter for screening mammogram for malignant neoplasm of breast Vitamin D 25-OH Total 07/17/25 E55.9 - Vitamin D deficiency, unspecified Erythrocyte Sedimentation Rate 3 Months M79.7 - Fibromyalgia Complete Blood Count Auto Diff 3 Months D64.9 - Anemia, unspecified Comprehensive [place]. Panel Fast 3 Months E78.00 - Pure hypercholesterolemia, unspecified Microalbumin, Random (w Creat) 3 Months E11.9 - Type 2 diabetes mellitus without complications UA CC w/rflx Micro + Cult 3 Months R30.0 - Dysuria Referrals Gastroenterology Referral K52.9 - Noninfective gastroenteritis and colitis, unspecified, Z12.11 - Encounter for screening for malignant neoplasm of colon Medications: New diclofenac sodium 1% (Arthritis Pain (diclofenac)) apply to single knee, ankle, foot; for foot includes sole/toes/top of foot 4 grams topical BID PRN 150 grams 3RF pain levofloxacin 500 mg PO DAILY 7 tabs 0RF 7 days
== END 2025-07-17 18:03 | disposition home or self-care (01) ==
LOC: HO.HMCH 17:18
PROVIDERS: PCP Internal Medicine; Visit Provider Internal Medicine
DX: Z13.9 Encounter for screening, unspecified (principal)

== ENCOUNTER → 2025-07-17 17:17 | Outpatient (BNVA) | payer OTHER, SELFPAY | PROVIDERS: PCP Internal Medicine; Visit Provider Internal Medicine | DX: Z00.00 Encounter for general adult medical examination without abnormal findings (principal); M79.7 Fibromyalgia; K52.9 Noninfective gastroenteritis and colitis, unspecified; R20.2 Paresthesia of skin; E11.9 Type 2 diabetes mellitus without complications; E78.00 Pure hypercholesterolemia, unspecified; I10 Essential (primary) hypertension; G11.9 Hereditary ataxia, unspecified; K21.9 Gastro-esophageal reflux disease without esophagitis; J45.40 Moderate persistent asthma, uncomplicated; M19.91 Primary osteoarthritis, unspecified site; M17.12 Unilateral primary osteoarthritis, left knee; J30.9 Allergic rhinitis, unspecified; E55.9 Vitamin D deficiency, unspecified; K59.00 Constipation, unspecified; G47.00 Insomnia, unspecified; F41.9 Anxiety disorder, unspecified; F33.1 Major depressive disorder, recurrent, moderate; E66.9 Obesity, unspecified; R29.898 Other symptoms and signs involving the musculoskeletal system; E53.8 Deficiency of other specified B group vitamins; R33.0 Drug induced retention of urine; D64.9 Anemia, unspecified; R30.0 Dysuria; Z79.4 Long term (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; Z68.33 Body mass index [BMI] 33.0-33.9, adult | CPT/HCPCS: 83036; 96127; 99396 ==

== ENCOUNTER 2025-07-25 11:04 | Outpatient (REF) | payer OTHER, SELFPAY ==
[2025-07-25 11:29] LABS: MANUAL DIFF FLAG NO
[2025-07-25 12:03] LABS: Hematocrit 42.8 % (37.0-47.0); Hemoglobin 14.0 g/dl (12.0-16.0); Imm Gran Abs Auto 0.01 X10*3/uL (0.00-0.03); Imm Gran Pct Auto 0.2 % (0.0-0.4); Lymphocytes Absolute Auto 2.6 X10*3/uL (1.2-4.9); Mean Corpuscular HGB Conc 32.7 g/dl (31.0-35.0); Mean Corpuscular Hemoglobin 25.5 pg (27.0-33.0); Mean Corpuscular Volume 78.0 fL (80.0-98.0); NRBC Abs Auto 0.000 X10*3/uL (0.0-0.012); NRBC Pct Auto 0.0 /100WBC (0.0-0.2); Platelet Count 181 X10*3/uL (160-400); Red Blood Count 5.49 X10*6/uL (4.20-5.50); White Blood Count 6.4 X10*3/uL (4.8-10.8)
[2025-07-25 12:15] LABS: Hemoglobin A1C 205.2715 umol/L; Total Hemoglobin (HGBA1C) 3563.1735 umol/L
[2025-07-25 12:44] LABS: Alanine Aminotransferase 18 U/L (0-31); Albumin Level 4.4 g/dL (3.5-5.0); Alkaline Phosphatase 93 U/L (39-117); Anion Gap 11 (12-20); Aspartate Amino Transferase 28 U/L (5-31); Blood Urea Nitrogen 12 mg/dL (9-16); Calcium 9.5 mg/dL (8.4-10.2); Carbon Dioxide 28 mmol/L (22-29); Chloride 106 mmol/L (96-108); Cholesterol 239 mg/dL (<200); Estimated Glomerular Filt Rate > 60; HDL Cholesterol 52 mg/dL (>40); Potassium 4.1 mmol/L (3.3-5.1); Sodium 141 mmol/L (135-145); Total Protein 6.9 g/dL (6.5-8.0); Triglycerides 273 mg/dL (<150)
[2025-07-25 13:14] LABS: Folate 14.6 ng/mL (> or = 4.0); Vitamin B12 421 pg/mL (200-900)
[2025-07-25 13:23] LABS: Appearance Urine Clear; Glucose Urine UA >=1000 mg/dL (Negative); PH 6.0 (5.0-9.0); Specific Gravity - Urine >= 1.030 (1.005-1.025); UMIC TRIGGER UACC YES
== END 2025-07-25 11:05 | disposition home or self-care (01) ==
LOC: HO.LAB 11:04
PROVIDERS: PCP Internal Medicine; Visit Provider Internal Medicine
DX: E11.9 Type 2 diabetes mellitus without complications (principal); E53.8 Deficiency of other specified B group vitamins; E78.00 Pure hypercholesterolemia, unspecified; E55.9 Vitamin D deficiency, unspecified; D64.9 Anemia, unspecified
CPT/HCPCS: 36415; 80053; 80061; 81001; 81003; 82306; 82607; 82746; 83036; 84443; 85025

== ENCOUNTER 2025-08-07 11:00 | Outpatient (AMB) | payer OTHER, SELFPAY ==
[2025-08-07 11:03] VITALS: BP 122/80; PULSE 72; O2SAT 96; BMI 34.7
--- NOTE | 2025-08-07 11:03 | MHC.PC.OV ---
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 Inspector Required: No Accompanied by: Self / Same As Patient Allergies egg (EGG) Allergy (Intermediate, Verified 08/07/25 11:35) VOMITING oxycodone (OXYCODONE) Allergy (Intermediate, Verified 08/07/25 11:35) NAUSEA/NIGHTMARES Penicillins (PCN) Allergy (Intermediate, Verified 08/07/25 11:35) RASH tramadol (TRAMADOL) Allergy (Intermediate, Verified 08/07/25 11:35) ITCHING acetaminophen (Percocet) Allergy (Unknown, Verified 08/07/25 11:35) none codeine Allergy (Unknown, Verified 08/07/25 11:35) nightmares Medication List - Last Reconciled 08/07/25 by Dwayne Stone MD acetaminophen 650 mg (2 x 325 mg) PO Q6H PRN 30 days [adult- pull ups large As directed] albuterol sulfate 90 mcg/actuation 2 puffs inhalation Q6-8H PRN 90 days aspirin 1 tab PO DAILY 30 days atorvastatin 40 mg PO BEDTIME 90 days blood sugar diagnostic (FreeStyle Lite Strips) 3 times daily blood-glucose meter (FreeStyle Golden Lite kit) As directed blood-glucose sensor (FreeStyle [place] 3 Sensor device) As directed blood-glucose,orthopedic nurse,cont (FreeStyle [place] 3 [place]) As directed cane As directed cholecalciferol (vitamin D3) (Vitamin D3) 50 mcg PO DAILY clotrimazole 1% 1 appl See Protocol topical BID 30 days diclofenac sodium 1% (Arthritis Pain (diclofenac)) 4 grams topical BID PRN docusate sodium 100 mg PO BID PRN 30 days duloxetine 60 mg PO DAILY empagliflozin (Jardiance) 25 mg PO QAM 90 days fluticasone furoate-vilanterol 200-25 mcg/dose (Breo Ellipta) 1 inh inhalation DAILY 30 days guaifenesin ER (Mucinex) 600 mg PO Q12H PRN insulin glargine 10 units (0.1 mL) subcut DAILY 30 days lisinopril 5 mg PO DAILY 90 days metformin 1,000 mg PO BID 30 days montelukast 10 mg PO DAILY 90 days omalizumab (Xolair) 300 mg subcut Q2W omeprazole 20 mg PO DAILY 90 days pen needle, diabetic (BD Ultra-Fine Pippa Pen Needle) As directed [RAISED TOILET SEAT with HANDLES As directed] [RECLINER As directed] [RECLINER CHAIR As directed] sennosides (Senna Lax) 8.6 mg PO BEDTIME 30 days sertraline 150 mg (3 x 50 mg) PO DAILY 30 days sertraline 100 mg PO DAILY Shower Chair As directed sitagliptin phosphate (Januvia) 50 mg PO DAILY sumatriptan succinate 50 mg PO tirzepatide (Mounjaro) 5 mg (0.5 mL) subcut QWEEK 28 days topiramate 25 mg PO DAILY trazodone 50 mg PO BEDTIME MRX1 PRN 30 days underpads As directed [wipes As directed] Tobacco use date assessed: 08/07/25 Dental Screening Dental Screen Date: 08/07/25 Did you have a dental visit in the last 12 months?: No Did you have a dental problem in the last 6 months where you did not have access to dental care?: No Was dental information given to patient?: Patient has dentist HPI 3 Months HPI Details Patient comes in today for her follow up visit States that she continues to experience increased diffuse pain due to her fibromyalgia She also reports experiencing increasing numbness and tingling sensation in her right hand and arm, as well as some weakness in her right hand She denies any headaches or dizziness Denies any chest pains, no increased SOB No nausea/vomiting but reports (+) right-sided abdominal pains for the past few weeks Relates (+) recurrent diarrhea, including postprandially, for over a month now Needs a few of her Rx refilled She had her follow up labs done a couple of weeks ago - to discuss her results [facility] Medical History Acute respiratory disease Cerebellar ataxia Primary osteoarthritis of left knee Constipation Candidal intertrigo Meniere's disease Memory impairment Arthritis Diabetic acidosis, type I Obesity (BMI 30-39.9) Depression Anxiety Insomnia Iron deficiency Vitamin D deficiency Osteoarthrosis GERD without esophagitis Allergic rhinitis Pure hypercholesterolemia Diabetes mellitus Benign essential hypertension Fibromyalgia 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 Maternal Grandmother Breast cancer Social History Household Members: Family Housing: Apartment Do you presently have visiting nurse or other home services: No Alcohol intake: never Patient Tobacco Use Status: Never used Tobacco Tobacco use type: Cigarette e-Cigarette/Vaping Use: Never Used Second Hand Smoke Exposure: Yes service: No Current occupational status: disabled Current occupational exposures/hazards: No Cognitive needs: Yes (cane) Hearing needs: No Vision needs: Yes (glasses) Female Reproductive History Menstrual Age of Menarche: 10 Questionnaire PHQ-9 Over the last 2 weeks, how often have you been bothered by any of the following problems? Depression Screening Interpretation: Positive Depression Screening Follow-up: Existing condition and In treatment Depression Screening Done: Yes Source: Developed by Drs. Kory Jerez, Nina Minaya, Basilio Peterson and colleagues, with an educational sheldon from [employer]. Thrive Questionnaire Date Thrive assessed: 05/04/25 I am a: Patient What is your living situation today?: I have a steady place to live Within the past 12 months, did the food you bought not last and you didn't have the money to get more?: Often true Within the past 12 months, did you worry whether your food would run out before you got money to buy more?: Often true Do you have trouble paying for medicines?: No Do you have trouble getting transportation to medical appointments?: No Do you have trouble paying your heating and electricity bill?: I choose not to answer this question Do you have trouble taking care of your child, family member or friend?: No Do you have trouble with day-to-day activities such as bathing, preparing meals, shopping, managing finances, etc.?: No Are you currently unemployed and looking for a job?: No Are you interested in more education?: No Please select the resources that you would like help with: None Currently or been in a relationship where the following occur: I choose not to answer THRIVE Score: 2 AUDIT C Alcohol Use Questionnaire (AUDIT-C) 1. How often do you have a drink containing alcohol?: Never 3. How often do you have six or more drinks on one occasion?: Never Total Score: 0 Score Reviewed/Action Taken: Yes RACHAEL-7 AMB Questionnaire RACHAEL-7 Date RACHAEL - 7 assessed: 05/04/25 Source: Developed by Drs. Kory Jerez, Nina Minaya, Basilio Peterson and colleagues, with an educational sheldon from [employer]. Review of Systems Const Denies chills, Reports difficulty sleeping, Reports fatigue, Denies fever(s) and Denies headache(s) ENT Denies dysphagia, Denies dizziness, Denies otalgia, Denies headache(s), Denies neck pain, Denies odynophagia and Denies sore throat Card Denies chest pain, Denies irregular heart rhythm, Denies palpitations and Denies dyspnea Resp Denies chest congestion, Denies cough and Denies dyspnea GI Reports abdominal pain (recurrent over the right side of the abdomen x few weeks), Denies hematochezia, Denies constipation, Denies dysphagia, Denies heartburn, Reports loose stools (frequent, including postprandially, x few weeksssssssss), Denies nausea, Denies odynophagia and Denies vomiting Denies difficulty voiding, Denies nocturia, Denies dysuria, Reports urinary incontinence (at times, mostly urge incontinence) and Denies urinary urgency Musc Reports abnormal gait (unsteady), Reports back pain (over the lower back), Reports myalgias (diffuse), Reports arthralgias (involving multiple joints, especially over her L knee and R shoulder), Denies neck pain, Reports numbness (in her right hand) and Reports tingling (in the right hand and right arm, on and off) Skin/Breast Denies lesions and Denies rash Neuro Reports abnormal gait (unsteady), Denies dizziness, Denies headache(s), Reports numbness (in her right hand) and Reports tingling (in the right hand and right arm, on and off) Psych Denies anxiety and Reports depression (is controlled on meds ) Endo Reports fatigue and Denies palpitations Jerson/Lymph Denies easy bruising Physical exam (Primary Care) Vital Signs: Last Vital Signs Pulse 72 08/07/25 11:03 BP 122/80 08/07/25 11:03 Pulse Ox 96 08/07/25 11:03 Oxygen Delivery Method Room Air 08/07/25 11:03 BMI result Body Mass Index 34.7 Tobacco/Smoking Status: Tobacco use Status Tobacco use date assessed 08/07/25 08/07/25 11:14 Patient Tobacco Use Status Never used Tobacco 08/07/25 11:06 Tobacco use type Cigarette 08/07/25 11:06 e-Cigarette/Vaping Use Never Used 08/07/25 11:06 Depression Screening Interpretation: Positive Depression Screening Follow-up: Existing condition and In treatment Thrive Assessment: Date of Thrive Assessment Date Thrive assessed 05/04/25 08/07/25 11:06 Currently or been in a relationship where the following occur: I choose not to answer Const General: no acute distress and alert HENMT Ears: TM's normal bilaterally and EAC's normal Throat: Yes posterior oropharynx normal and Yes tonsils normal (no TP congestion noted) Neck Neck: Yes supple and No lymphadenopathy Thyroid: Thyroid normal Resp Auscultation: clear to auscultation bilaterally, no rales and no wheezes Cardio Rate: regular rate Rhythm: regular rhythm Heart sounds: no murmurs GI Palpation (GI): Soft to palpation, Tenderness to palpation present (GI) (mild, over the right side of the abdomen), no guarding, not rigid and No Rebound tenderness present Auscultation: normal bowel sounds General: Yes no CVA tenderness Back/Spine/Pelvis Back: no CVA tenderness Thoracic/Lumbar Spine: paraspinal muscle tenderness bilaterally in the lower thoracic, in the upper lumbar, in the mid lumbar and in the lower lumbar and lumbar spinal tenderness Skin Lesions: no lesions Rashes: no rashes Extrem General: Yes no clubbing, cyanosis or edema Right upper extremity: shoulder/upper arm Details: tenderness Location: of the A-C joint and of the scapula; no swelling Left upper extremity: elbow/forearm Details: tenderness; no swelling Right lower extremity: knee Details: tenderness Results Reviewed Results Reviewed: Laboratory Tests 03/28/25 06/16/25 07/17/25 09:33 12:39 17:25 WBC 7.9 Hgb 14.1 Hct 42.0 Plt Count 189 Sodium 140 Potassium 4.0 Creatinine 0.62 Estimated GFR > 60 Random Glucose 175 H Fasting Glucose Hgb A1c (Clinic) 7.2 H Hemoglobin A1c % Calcium 9.6 AST 24 ALT 20 Triglycerides 89 Cholesterol 183 LDL Cholesterol, Calc 103 H HDL Cholesterol 63 Vitamin B12 25-OH Vitamin D Total TSH Ur Specific [place] Urine Protein Urine Glucose (UA) Urine Blood Urine Nitrite Ur Leukocyte Esterase 07/25/25 07/25/25 11:23 11:27 WBC 6.4 Hgb 14.0 Hct 42.8 Plt Count 181 Sodium 141 Potassium 4.1 Creatinine 0.60 Estimated GFR > 60 Random Glucose Fasting Glucose 127 H Hgb A1c (Clinic) Hemoglobin A1c % 7.4 H Calcium 9.5 AST 28 ALT 18 Triglycerides 273 H Cholesterol 239 H LDL Cholesterol, Calc 133 H HDL Cholesterol 52 Vitamin B12 421 25-OH Vitamin D Total 40.7 TSH 1.56 Ur Specific [place] >= 1.030 H Urine Protein Negative Urine Glucose (UA) >=1000 H Urine Blood Negative Urine Nitrite Negative Ur Leukocyte Esterase Negative Laboratory Tests 04/04/25 11:27 Hemoglobin A1c % 6.7 H Coding Level of Care Code Est Pt Level 4 (85851) Diagnoses Paresthesia of right upper extremity R20.2 Type 2 diabetes mellitus without complication, with long-term current use of insulin E11.9; Z79.4 Diabetes mellitus complication status: without complication 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 use: with custodial use Diabetes mellitus type: type 2 Pure hypercholesterolemia E78.00 Benign essential hypertension I10 Cerebellar ataxia G11.9 GERD without esophagitis K21.9 Moderate persistent asthma without complication J45.40 Asthma complication type: uncomplicated Asthma persistence: persistent Asthma severity: moderate Primary osteoarthritis, unspecified site M19.91 Osteoarthritis location: unspecified site Osteoarthritis type: primary Primary osteoarthritis of left knee M17.12 Allergic rhinitis, unspecified seasonality, unspecified trigger J30.9 Allergic rhinitis seasonality: unspecified Allergic rhinitis trigger: unspecified Vitamin D deficiency E55.9 Constipation, unspecified constipation type K59.00 Constipation type: unspecified constipation type Fibromyalgia M79.7 Insomnia, unspecified type G47.00 Insomnia type: unspecified Anxiety F41.9 MDD (major depressive disorder), recurrent episode, moderate F33.1 Obesity (BMI 30-39.9) E66.9 Assessment & Plan Assessment & Plan (1) Paresthesia of right upper extremity: Code(s): R20.2 - Paresthesia of skin Category: Medical Plan: Suspect that patient may have some form of neuropathy in her right arm, including possible median neuropathy We have referred patient for EMG and NCV of the right arm for further evaluationand she is scheduled to have these done sometime in the next few weeks (2) Diabetes mellitus: Code(s): E11.9 - Type 2 diabetes mellitus without complications Category: Medical Qualifiers: Diabetes mellitus complication status: without complication Diabetes mellitus custodial insulin use: with custodial use Diabetes mellitus type: type 2 Qualified Code(s): E11.9 - Type 2 diabetes mellitus without complications; 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 Plan: Her in-office HgbA1c earlier this month was at 7.2% (HgbA1c was previously at 6.7% a few months ago) - goal is least <7.0% but ideally <6.5% Reinforced diabetic diet Continue Metformin 1000 mg BID, Jardiance 25 mg QD and Mounjaro 7.5 mg SQ once a week Her Lantus was held by endocrinology last year due to her well-controlled diabetes Follow-up with endocrinology as scheduled (3) Pure hypercholesterolemia: Code(s): E78.00 - Pure hypercholesterolemia, unspecified Category: Medical Plan: Results of her labs done a couple of weeks ago reviewed and discussed with patient Reinforced low-cholesterol diet Continue Atorvastatin 40 mg QD Will recheck her labs and fasting lipids again in 3 months for follow-up (4) Benign essential hypertension: Code(s): I10 - Essential (primary) hypertension Category: Medical Plan: Reinforced low sodium diet - goal is systolic BP of at least 120 to 130 mm or less Continue Lisinopril 5 mg QD (5) Cerebellar ataxia: Code(s): 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.9 - Hereditary ataxia, unspecified Category: Medical Plan: She was diagnosed by neurology in September 2022 with cerebellar ataxia, when she was referred for further evaluation of her recurrent dizziness MRI of the brain done in September 2022 revealed (+) scattered nonspecific white matter T2 hyperintensities in both cerebral hemispheres with no evidence for acute or subacute cerebral ischemia, hemorrhage, extra-axial fluid collection, space-occupying process, mass effect or hydrocephalus Follow up with neurology as scheduled (6) GERD without esophagitis: Code(s): K21.9 - Gastro-esophageal reflux disease without esophagitis Category: Medical Plan: Dietary restrictions reinforced Continue Omeprazole 20 mg QD (7) Asthma: Code(s): J45.909 - Unspecified asthma, uncomplicated Category: Medical Qualifiers: Asthma complication type: uncomplicated Asthma persistence: persistent Asthma severity: moderate Qualified Code(s): J45.40 - Moderate persistent asthma, uncomplicated Plan: Patient started her Xolair injections at 300 mg SQ every 2 weeks a few months ago and that her asthma has been much better controlled lately Continue Breo Ellipta 225 mcg 1 inhalation QD and Albuterol HFA 1-2 inhalations every 6 hours PRN Follow-up with pulmonary as scheduled (8) Osteoarthrosis: Code(s): M19.90 - Unspecified osteoarthritis, unspecified site Category: Medical Qualifiers: Osteoarthritis location: unspecified site Osteoarthritis type: primary Qualified Code(s): M19.91 - Primary osteoarthritis, unspecified site Plan: X-rays of both hands done a couple of years ago showed (+) mild OA changes in the right hand; left hand x-rays were normal except for an old metacarpal fracture that has since healed She was diagnosed with polyarthralgia by Rheumatology a couple of years ago and is currently requesting for a referral again to rheumatology as she has not been seen in a while - referral to rheumatology was placed a few months ago and she is now scheduled to be seen by Dr. Allison in January 2026 She is encouraged again on regular hand exercises to help minimize her hand stiffness and pain Continue Tramadol 50 mg TID PRN and Tylenol Arthritis 650 mg 3 times a day as needed, Piroxicam 10 mg once a day with food as needed and Diclofenac 1% topical Gel TID PRN (Rx refillled) Follow up with orthopedics as scheduled (9) Primary osteoarthritis of left knee: Code(s): M17.12 - Unilateral primary osteoarthritis, left knee Category: Medical Plan: X-rays of the left knee done last year revealed (+) moderate degenerative changes Will consider orthopedic referral if her knee pain gets worse (10) Allergic rhinitis: Code(s): J30.9 - Allergic rhinitis, unspecified Category: Medical Qualifiers: Allergic rhinitis seasonality: unspecified Allergic rhinitis trigger: unspecified Qualified Code(s): J30.9 - Allergic rhinitis, unspecified Plan: Continue Montelukast 10 mg QD, Loratadine 10 mg QD PRN and Fluticasone 50 mcg nasal spray QD PRN (11) Vitamin D deficiency: Code(s): E55.9 - Vitamin D deficiency, unspecified Category: Medical Plan: Continue Vitamin D3 2000 units QD (12) Constipation: Code(s): K59.00 - Constipation, unspecified Category: Medical Qualifiers: Constipation type: unspecified constipation type Qualified Code(s): K59.00 - Constipation, unspecified Plan: Improved; reinforced increased oral fluids and dietary fiber intake Continue Senna 8.6 mg QD PRN (13) Fibromyalgia: Code(s): M79.7 - Fibromyalgia Category: Medical Plan: Patient is encouraged again on regular exercise and physical activity to help manage her fibromyalgia symptoms Continue Duloxetine 60 mg once a day and Tizanidine 4 mg Q HS PRN Continue Pregabalin 50 mg BID - she is tolerating Lyrica so far (she was taken off Gabapentin previously as she was concerned that the medication was affecting her memory) (14) Insomnia: Code(s): G47.00 - Insomnia, unspecified Category: Medical Qualifiers: Insomnia type: unspecified Qualified Code(s): G47.00 - Insomnia, unspecified Plan: Sleep hygiene reinforced Continue Trazodone 50 mg Q HS PRN (15) Anxiety: Code(s): F41.9 - Anxiety disorder, unspecified Category: Medical Plan: Continue Lorazepam 0.5 mg Q HS PRN and Hydroxyzine 25 mg 3 times a day as needed (16) MDD (major depressive disorder), recurrent episode, moderate: Code(s): F33.1 - Major depressive disorder, recurrent, moderate Category: Medical Plan: Continue Sertraline 150 mg QD Follow-up with Psychiatry as scheduled (17) Obesity (BMI 30-39.9): Code(s): E66.9 - Obesity, unspecified Category: Medical Plan: Reinforced diet; exercise and weight loss are unrealistic given patient's physical issues and multiple comorbidities Plan Follow up in 3 months Orders: Orders Comprehensive [place]. Panel Fast 3 Months E78.00 - Pure hypercholesterolemia, unspecified Microalbumin, Random (w Creat) 3 Months E11.9 - Type 2 diabetes mellitus without complications Hemoglobin A1c 3 Months E11.9 - Type 2 diabetes mellitus without complications Complete Blood Count Auto Diff 3 Months D64.9 - Anemia, unspecified Lipid Panel 3 Months E78.00 - Pure hypercholesterolemia, unspecified Medications: New meloxicam Take with food 15 mg PO DAILY PRN 30 tabs 0RF increased joint pains 30 days Refilled atorvastatin 40 mg PO BEDTIME 90 tabs 1RF 90 days aspirin 1 tab PO DAILY 30 tabs 3RF 30 days cyclobenzaprine 10 mg PO Q8H PRN 30 tabs 1RF muscle spasm 10 days
== END 2025-08-07 11:56 | disposition home or self-care (01) ==
LOC: HO.HMCH 11:01
PROVIDERS: PCP Internal Medicine; Visit Provider Internal Medicine
DX: E11.9 Type 2 diabetes mellitus without complications (principal); Z79.4 Long term (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; G11.9 Hereditary ataxia, unspecified; F33.1 Major depressive disorder, recurrent, moderate; R20.2 Paresthesia of skin; E78.00 Pure hypercholesterolemia, unspecified; I10 Essential (primary) hypertension; K21.9 Gastro-esophageal reflux disease without esophagitis; J45.40 Moderate persistent asthma, uncomplicated; M19.91 Primary osteoarthritis, unspecified site; M17.12 Unilateral primary osteoarthritis, left knee; J30.9 Allergic rhinitis, unspecified

== ENCOUNTER → 2025-08-07 11:00 | Outpatient (BNVA) | payer OTHER, SELFPAY | PROVIDERS: PCP Internal Medicine; Visit Provider Internal Medicine | DX: M79.7 Fibromyalgia (principal); R20.2 Paresthesia of skin; E11.9 Type 2 diabetes mellitus without complications; E78.00 Pure hypercholesterolemia, unspecified; I10 Essential (primary) hypertension; G11.9 Hereditary ataxia, unspecified; K21.9 Gastro-esophageal reflux disease without esophagitis; J45.40 Moderate persistent asthma, uncomplicated; M19.91 Primary osteoarthritis, unspecified site; M17.12 Unilateral primary osteoarthritis, left knee; J30.9 Allergic rhinitis, unspecified; E55.9 Vitamin D deficiency, unspecified; K59.00 Constipation, unspecified; G47.00 Insomnia, unspecified; F41.9 Anxiety disorder, unspecified; F33.1 Major depressive disorder, recurrent, moderate; E66.9 Obesity, unspecified; Z79.4 Long term (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; Z68.34 Body mass index [BMI] 34.0-34.9, adult | CPT/HCPCS: 99212 ==

== ENCOUNTER 2025-08-15 10:58 | Outpatient (AMB) | payer OTHER, SELFPAY ==
[2025-08-15 11:05] VITALS: BP 102/62; PULSE 79; O2SAT 98; BMI 34.9
--- NOTE | 2025-08-15 11:05 | A.OFFVIS_ITS ---
Vital Signs 08/15/25 11:05 Height 5 ft 5 in Weight 210 lb BMI 34.9 BP 102/62 Blood Pressure Location Lt brachial Position Sitting Pulse 79 Pulse Source Pulse Oximeter Pulse Oximetry (%) 98 Oxygen Delivery Method Room Air Intake Visit Reasons: Asthma Chief Contract Officer Required: Yes Chief Contract Officer Name: Jennifer Nickerson C.L.M Allergies egg (EGG) Allergy (Intermediate, Verified 08/15/25 11:14) VOMITING oxycodone (OXYCODONE) Allergy (Intermediate, Verified 08/15/25 11:14) NAUSEA/NIGHTMARES Penicillins (PCN) Allergy (Intermediate, Verified 08/15/25 11:14) RASH tramadol (TRAMADOL) Allergy (Intermediate, Verified 08/15/25 11:14) ITCHING acetaminophen (Percocet) Allergy (Unknown, Verified 08/15/25 11:14) none codeine Allergy (Unknown, Verified 08/15/25 11:14) nightmares HPI HPI Asthma: Details: 59-year-old lady, lifetime nonsmoker, followed for underlying asthma and environmental allergies. Previously she has been using Xolair, Breo, and albuterol MDI with excellent control of his symptoms, however over the last 3 months she has missed her Xolair injection secondary to intervening medical issues in her asthma symptoms are not as well controlled. She is interested in restarting her Xolair. 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 Maternal Grandmother Breast cancer Social History Household Members: Family Housing: Apartment Do you presently have visiting nurse or other home services: No Alcohol intake: never Patient Tobacco Use Status: Never used Tobacco Tobacco use type: Cigarette e-Cigarette/Vaping Use: Never Used Second Hand Smoke Exposure: Yes service: No Current occupational status: disabled Current occupational exposures/hazards: No Cognitive needs: Yes (cane) Hearing needs: No Vision needs: Yes (glasses) Female Reproductive History Menstrual Age of Menarche: 10 Review of Systems Const Denies daytime sleepiness, Denies excessive sweating, Denies fatigue, Denies fever(s), Denies lethargy, Denies malaise, Denies night sweats, Denies snoring and Denies weight loss Eyes Denies blurry vision and Denies itchy eyes ENT Denies nasal congestion, Denies post nasal drip, Denies sinus pain, Denies sinus pressure and Denies other ( Thrush) Card Denies chest pain, Denies pedal edema, Denies dyspnea, Denies orthopnea and Denies paroxysmal nocturnal dyspnea Resp Denies cough, Denies hemoptysis, Denies excessive phlegm production, Denies dyspnea, Denies snoring and Denies wheezing GI Denies abdominal pain and Denies heartburn Musc Denies myalgias, Denies arthralgias and Denies joint swelling Skin/Breast Denies rash Neuro Denies memory loss and Denies seizure-like activity Psych Denies abnormal sleep pattern, Denies anxiety and Denies memory loss Endo Denies excessive sweating, Denies fatigue and Denies heat intolerance Jerson/Lymph Denies easy bruising Aller/Immun Denies itchy eyes, Denies seasonal rhinorrhea and Denies wheezing Physical Exam Vital Signs: Last Vital Signs Pulse 79 08/15/25 11:05 BP 102/62 08/15/25 11:05 Pulse Ox 98 08/15/25 11:05 Oxygen Delivery Method Room Air 08/15/25 11:05 BMI result Body Mass Index 34.9 Const General: no acute distress and alert Nutritional Appearance: not obese Orientation/consciousness: Other orientation findings ( oriented) HEENT Head: Yes atraumatic Eyes General: appearance normal, both eyes and all related structures Sclerae: sclerae normal EOM: EOMs intact bilaterally Neck Neck: Yes supple Lymphatic: no lymphadenopathy noted Resp Effort & Inspection: normal respiratory effort and no use of accessory muscles Auscultation: clear to auscultation bilaterally Cardio Rate: regular rate Rhythm: regular rhythm Heart sounds: no gallops, no murmurs and no rubs Skin General skin exam: other ( warm) Extrem General: No clubbing, No cyanosis and No edema Assessment & Plan Assessment & Plan (1) Severe persistent asthma: Code(s): J45.50 - Severe persistent asthma, uncomplicated Category: Medical Plan: Suboptimal control off Xolair. Restart Xolair. Continue Breo and albuterol MDI. (2) Environmental allergies: Code(s): Z91.09 - Other allergy status, other than to drugs and biological substances Category: Medical Plan: Suboptimal control off Xolair. Restart Xolair. Continue Singulair. Coding Level of Care Code Est Pt Level 4 (26814) Diagnoses Severe persistent asthma J45.50 Environmental allergies Z91.09
== END 2025-08-15 11:25 | disposition home or self-care (01) ==
LOC: HO.HPS 10:59
PROVIDERS: PCP Internal Medicine; Visit Provider Internal Medicine Pulmonary Disease
DX: J45.50 Severe persistent asthma, uncomplicated (principal); Z91.09 Other allergy status, other than to drugs and biological substances
CPT/HCPCS: 99214

== ENCOUNTER → 2025-08-15 10:58 | Outpatient (BNVA) | payer OTHER, SELFPAY | PROVIDERS: PCP Internal Medicine; Visit Provider Internal Medicine Pulmonary Disease | DX: J45.50 Severe persistent asthma, uncomplicated (principal); Z91.09 Other allergy status, other than to drugs and biological substances | CPT/HCPCS: 99212 ==

== ENCOUNTER 2025-08-22 14:12 | Outpatient (AMB) | payer OTHER, SELFPAY ==
--- NOTE | 2025-08-22 14:26 | A.OFFPC_ITS ---
Vital Signs 08/22/25 14:27 Height 5 ft 5 in Weight 212 lb 2 oz BMI 35.3 BP 102/66 Blood Pressure Location Lt brachial Position Sitting Respiration 18 Pulse 72 Pulse Source Pulse Oximeter Temp 97.1 F Temp Source Temporal Artery Scan Pulse Oximetry (%) 96 Oxygen Delivery Method Room Air Intake Visit Reasons: [facility] 09/21 Physician Asst Required: Yes Physician Asst Language: Network Development Coordinator Name: [id number]/kaitlin Accompanied by: Self / Same As Patient Allergies egg (EGG) Allergy (Intermediate, Verified 08/22/25 14:55) VOMITING oxycodone (OXYCODONE) Allergy (Intermediate, Verified 08/22/25 14:55) NAUSEA/NIGHTMARES Penicillins (PCN) Allergy (Intermediate, Verified 08/22/25 14:55) RASH tramadol (TRAMADOL) Allergy (Intermediate, Verified 08/22/25 14:55) ITCHING acetaminophen (Percocet) Allergy (Unknown, Verified 08/22/25 14:55) none codeine Allergy (Unknown, Verified 08/22/25 14:55) nightmares Medication List - Last Reconciled 08/22/25 by TRES Pedroza acetaminophen 650 mg (2 x 325 mg) PO Q6H PRN 30 days [adult- pull ups large As directed] albuterol sulfate 90 mcg/actuation 2 puffs inhalation Q6-8H PRN 90 days aspirin 1 tab PO DAILY 30 days atorvastatin 40 mg PO BEDTIME 90 days blood sugar diagnostic (FreeStyle Lite Strips) 3 times daily blood-glucose meter (FreeStyle [place] Lite kit) As directed blood-glucose sensor (FreeStyle [place] 3 Sensor device) As directed blood-glucose,transit authority police officer,cont (FreeStyle [place] 3 [place]) As directed cane As directed cholecalciferol (vitamin D3) (Vitamin D3) 50 mcg PO DAILY clotrimazole 1% 1 appl See Protocol topical BID 30 days cyclobenzaprine 10 mg PO Q8H PRN 10 days diclofenac sodium 1% (Arthritis Pain (diclofenac)) 4 grams topical BID PRN docusate sodium 100 mg PO BID PRN 30 days duloxetine 60 mg PO DAILY empagliflozin (Jardiance) 25 mg PO QAM 90 days fluticasone furoate-vilanterol 200-25 mcg/dose (Breo Ellipta) 1 inh inhalation DAILY 30 days guaifenesin ER (Mucinex) 600 mg PO Q12H PRN insulin glargine 10 units (0.1 mL) subcut DAILY 30 days lisinopril 5 mg PO DAILY 90 days meloxicam 15 mg PO DAILY PRN 30 days metformin 1,000 mg PO BID 30 days montelukast 10 mg PO DAILY 90 days omalizumab (Xolair) 300 mg subcut Q2W omeprazole 20 mg PO DAILY 90 days pen needle, diabetic (BD Ultra-Fine Pippa Pen Needle) As directed [RAISED TOILET SEAT with HANDLES As directed] [RECLINER As directed] [RECLINER CHAIR As directed] sennosides (Senna Lax) 8.6 mg PO BEDTIME 30 days sertraline 150 mg (3 x 50 mg) PO DAILY 30 days sertraline 100 mg PO DAILY Shower Chair As directed sumatriptan succinate 50 mg PO tirzepatide (Mounjaro) 5 mg (0.5 mL) subcut QWEEK 28 days topiramate 25 mg PO DAILY trazodone 50 mg PO BEDTIME MRX1 PRN 30 days underpads As directed [wipes As directed] Tobacco use date assessed: 08/22/25 Dental Screening Dental Screen Date: 08/22/25 Did you have a dental visit in the last 12 months?: No Did you have a dental problem in the last 6 months where you did not have access to dental care?: No Was dental information given to patient?: No HPI [facility] 09/21 HPI Details The patient is a 60-year-old estonian speaking female presenting with concerns regarding cataract surgery recovery, diabetes management, anxiety, and shoulder immobility. Physician Asst service via Ipad utilized. The patient has a longstanding history of cataract in both eyes. This was recommended to be monitored in the past because it was not visually significant then. The patient reports that her vision has gotten worse, so decision was made to follow through with cataract surgery. She reports having lasiks eye surgery in the past. The patient underwent cataract surgery on the right eye, which resulted in a prolonged recovery period, preventing the surgery on the left eye. She now plans to proceed with the left eye surgery. The patient has a history of diabetes mellitus and is currently on medications including Jardiance and metformin. She was advised to hold Jardiance three days prior to surgery and to skip the evening dose of metformin the night before the procedure. The patient experiences significant anxiety, particularly related to medical procedures, and requires medication to manage this condition. The patient reports shoulder immobility, with an inability to lift the right shoulder for the past three months. She has not experienced any pain but has requested further evaluation, including imaging, to determine the cause. Surgeon/location: Dr. Ryan Jolley at [facility] in [place], [place]. Per patient, the surgery will be at the [place] location. DATE: Right eye left eye 09/21/2025 Anesthesia: Mac. Patient denies any issues with anesthesia in the past. The patient denies any post surgery hypothermia or clotting disorder and she is not on any blood thinners or disease modifying antirheumatic drugs (DMARDs). She is on aspirin which should be continued. Medical history is significant for HTN, Diabetes Mellitus, Asthma, Obesity, retirement (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, and the patient is currently under the treatment of abt for Bronchitis. Reports that she is getting better, but she is not back to 100 percent as yet. Faint expiratory wheezes through heard, but no s/sx of respiratory distress. The patient denies chest pain, dizziness or heart palpitations Mild sob with exertion due to her asthma that was complicated by the bronchitis Medication discussion: Hold Jardiance 3 days before surgery. Take half of your current dose of Lantus the day of surgery. Hold the even dose of Metformin the day before surgery. Hold Mounjaro a week before surgery (reports that she has not been taking this medication). Take your lisinopril 5 mg with sips of water the of the surgery. 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 Maternal Grandmother Breast cancer Social History Household Members: Family Housing: Apartment Do you presently have visiting nurse or other home services: No Alcohol intake: never Patient Tobacco Use Status: Never used Tobacco Tobacco use type: Cigarette e-Cigarette/Vaping Use: Never Used Second Hand Smoke Exposure: Yes service: No Current occupational status: disabled Current occupational exposures/hazards: No Cognitive needs: Yes (cane) Hearing needs: No Vision needs: Yes (glasses) Female Reproductive History Menstrual Age of Menarche: 10 Questionnaire Thrive Questionnaire Date Thrive assessed: 03/31/25 I am a: Patient What is your living situation today?: I have a steady place to live Within the past 12 months, did the food you bought not last and you didn't have the money to get more?: Often true Within the past 12 months, did you worry whether your food would run out before you got money to buy more?: Often true Do you have trouble paying for medicines?: No Do you have trouble getting transportation to medical appointments?: No Do you have trouble paying your heating and electricity bill?: I choose not to answer this question Do you have trouble taking care of your child, family member or friend?: No Do you have trouble with day-to-day activities such as bathing, preparing meals, shopping, managing finances, etc.?: No Are you currently unemployed and looking for a job?: No Are you interested in more education?: No Please select the resources that you would like help with: None Currently or been in a relationship where the following occur: I choose not to answer THRIVE Score: 2 RACHAEL-7 AMB Questionnaire RACHAEL-7 Date RACHAEL - 7 assessed: 05/04/25 Source: Developed by Drs. Kory Jerez, Nina Minaya, Basilio Peterson and colleagues, with an educational sheldon from [employer]. Review of Systems Const Denies headache(s) Eyes Reports change in vision (decrease in vision) and Denies loss of vision ENT Denies vertigo, Denies dizziness, Denies headache(s) and Denies sore throat Card Denies chest pain, Denies leg edema, Denies lightheadedness and Reports dyspnea on exertion (mild-unchanged) Resp Denies cough, Denies hemoptysis, Reports dyspnea on exertion (mild-unchanged) and Denies wheezing GI Denies abdominal pain, Denies melena, Denies constipation, Denies diarrhea and Denies vomiting Denies urinary frequency, Denies dysuria and Denies urinary urgency Musc Reports arthralgias (right shoulder), Denies joint swelling, Denies numbness and Denies tingling Neuro Denies Abnormal speech present, Denies behavioral changes, Denies vertigo, Denies dizziness, Denies headache(s), Denies loss of vision, Denies memory loss, Denies numbness and Denies tingling Psych Denies anxiety, Denies behavioral changes, Denies depression, Denies memory loss and Denies panic attacks Jerson/Lymph Denies easy bleeding and Denies easy bruising Aller/Immun Denies wheezing Physical exam (Primary Care) Vital Signs: Last Vital Signs Temp 97.1 F 08/22/25 14:27 Pulse 72 08/22/25 14:27 Resp 18 08/22/25 14:27 BP 102/66 08/22/25 14:27 Pulse Ox 96 08/22/25 14:27 Oxygen Delivery Method Room Air 08/22/25 14:27 BMI result Body Mass Index 35.3 Tobacco/Smoking Status: Tobacco use Status Tobacco use date assessed 08/22/25 08/22/25 14:38 Patient Tobacco Use Status Never used Tobacco 08/22/25 14:38 Tobacco use type Cigarette 08/22/25 14:38 e-Cigarette/Vaping Use Never Used 08/22/25 14:38 Thrive Assessment: Date of Thrive Assessment Date Thrive assessed 03/31/25 08/22/25 14:38 Currently or been in a relationship where the following occur: I choose not to answer Const General: healthy appearing, no acute distress, alert and awake Nutritional Appearance: well nourished Orientation/consciousness: oriented to person, oriented to place and oriented to time HENMT Ears: TM's normal bilaterally General nose exam: Normal nasal mucous membranes and turbinates present Eyes Conjunctivae: conjunctivae normal Sclerae: sclerae normal Pupils: Equal, round and reactive pupils present Neck Neck: Yes no lymphadenopathy and Yes no JVD Thyroid: Thyroid normal Carotids: no bruits Resp Effort & Inspection: normal respiratory effort and not tachypneic Auscultation: no crackles, no rales, no rhonchi and no wheezes Cardio Rate: regular rate Rhythm: regular rhythm Heart sounds: no murmurs and normal S1 and S2 GI Palpation (GI): Soft to palpation, nontender, no hepatomegaly and no splenomegaly Auscultation: normal bowel sounds Skin General skin exam: no rashes or lesions noted and dry skin Neuro General: oriented to person, oriented to place and oriented to time Cranial nerves: Yes Equal, round and reactive pupils present Speech: No Abnormal speech present Gait exam (Neuro): Normal gait present Motor exam (neuro): no tremor noted Extrem Right upper extremity: shoulder/upper arm Details: tenderness and abnormal ROM (unable to left it above head) Details: pain with active ROM and pain with passive ROM Left upper extremity: full ROM Right lower extremity: full ROM; no edema Left lower extremity: full ROM; no edema Psych Mental Status: mental status grossly normal Speech and movement: Normal speech and movement present Affect: normal affect Attitude: cooperative Thought process: Normal thought process present Coding Level of Care Code Est Pt Level 4 (77638) Diagnoses Preoperative clearance Z01.818 Hypertension, unspecified type I10 Hypertension type: unspecified Pure hypercholesterolemia E78.00 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 Z79.4 Type 2 diabetes mellitus without complication, with long-term current use of insulin E11.9; Z79.4 Diabetes mellitus type: type 2 Diabetes mellitus retirement insulin use: with retirement use Diabetes mellitus complication status: without complication Class 3 severe obesity with body mass index (BMI) of 40.0 to 44.9 in adult, unspecified obesity type, unspecified whether serious comorbidity present E66.01; Z68.41 Obesity type: unspecified obesity type Obesity classification: adult class 3 (BMI >= 40) Serious obesity comorbidity presence: unspecified whether serious comorbidity present Body mass index: BMI 40.0-44.9 Cerebellar ataxia G11.9 Moderate persistent asthma without complication J45.40 Asthma severity: moderate Asthma persistence: persistent Asthma complication type: uncomplicated Cataract of left eye, unspecified cataract type H26.9 Cataract type: unspecified Laterality: left Right shoulder pain, unspecified chronicity M25.511 Chronicity: unspecified Time Spent (min) 39 Assessment & Plan Assessment & Plan (1) Preoperative clearance: Code(s): Z01.818 - Encounter for other preprocedural examination Category: Medical Plan: Recent labs on EKG reviewed Regarding preop clearance, the patient is at acceptable risk for proposed surgery. Reviewed with the patient that no surgery is completely free of risk and that this examination is to assist the surgeon in reviewing informed consent. 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 Category: Medical Plan: Take half of the Lantus the day of surgery= 5 units subQ (5) Diabetes mellitus: Code(s): E11.9 - Type 2 diabetes mellitus without complications Category: Medical Qualifiers: Diabetes mellitus type: type 2 Diabetes mellitus retirement insulin use: with terminologist use Diabetes mellitus complication status: without complication Qualified Code(s): E11.9 - Type 2 diabetes mellitus without complications; Z79.4 - retirement (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 Plan: A1c 7.4%-goal less than 6.7% Continue diabetic regimen as scheduled accept, on the days of preoperative holding recommendations that were discussed with you. Hold Jardiance 3 days before surgery. Take half of your current dose of Lantus the day of surgery. Hold the even dose of Metformin the day before surgery. Hold Mounjaro a week before surgery (6) Obesity: Code(s): E66.9 - Obesity, unspecified Category: Medical Qualifiers: Obesity type: unspecified obesity type Obesity classification: adult class 3 (BMI >= 40) Serious obesity comorbidity presence: unspecified whether serious comorbidity present Body mass index: BMI 40.0-44.9 Qualified Code(s): E66.01 - Morbid (severe) obesity due to excess calories; Z68.41 - Body mass in dex [BMI]40.0-44.9, adult Plan: Reinforced diet/exercise as tolerated/lose weight (7) Cerebellar ataxia: Code(s): G11.9 - Hereditary ataxia, unspecified Category: Medical Plan: The patient was diagnosed by Neurology after complaining of dizziness. MRI showed multiple areas of white matter. Follow up with Neurology as scheduled (8) Asthma: Code(s): J45.909 - Unspecified asthma, uncomplicated Category: Medical Qualifiers: Asthma severity: moderate Asthma persistence: persistent Asthma complication type: uncomplicated Qualified Code(s): J45.40 - Moderate persistent asthma, uncomplicated Plan: Continue montelukast 10 mg daily, Xolair 300 mg subQ q.week, Breo Ellipta 200-25 mcg/dose 1inh daily, albuterol sulfate 90 mcg/actuation 2 puffs inh q.6- 8H p.r.n. Follow up with pulmonology as scheduled (9) Cataract: Code(s): H26.9 - Unspecified cataract Category: Medical Qualifiers: Cataract type: unspecified Laterality: left Qualified Code(s): H26.9 - Unspecified cataract Plan: The patient will proceed with cataract surgery on the left eye, as the right eye surgery had a prolonged recovery. (10) Right shoulder pain: Code(s): M25.511 - Pain in right shoulder Category: Medical Qualifiers: Chronicity: unspecified Qualified Code(s): M25.511 - Pain in right shoulder Plan: An x-ray of the right shoulder is ordered to evaluate the cause of immobility, as the patient reports no pain but significant functional limitation. Orders: Orders XR shoulder RT min 2V 08/22/25 M25.511 - Pain in right shoulder
[2025-08-22 14:27] VITALS: BP 102/66; PULSE 72; RESP 18; TEMP 36.2; O2SAT 96; BMI 35.3
== END 2025-08-22 15:51 | disposition home or self-care (01) ==
LOC: HO.HMCH 14:12
PROVIDERS: PCP Internal Medicine
DX: Z01.818 Encounter for other preprocedural examination (principal); I10 Essential (primary) hypertension; E78.00 Pure hypercholesterolemia, unspecified; Z79.4 Long term (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; E11.9 Type 2 diabetes mellitus without complications; E66.01 Morbid (severe) obesity due to excess calories; Z68.41 Body mass index [BMI] 40.0-44.9, adult; G11.9 Hereditary ataxia, unspecified; J45.40 Moderate persistent asthma, uncomplicated; H26.9 Unspecified cataract; M25.511 Pain in right shoulder

== ENCOUNTER → 2025-08-22 14:12 | Outpatient (BNVA) | payer OTHER, SELFPAY | PROVIDERS: PCP Internal Medicine | DX: Z01.818 Encounter for other preprocedural examination (principal); E11.36 Type 2 diabetes mellitus with diabetic cataract; F41.9 Anxiety disorder, unspecified; H26.9 Unspecified cataract; I10 Essential (primary) hypertension; E78.00 Pure hypercholesterolemia, unspecified; E66.01 Morbid (severe) obesity due to excess calories; G11.9 Hereditary ataxia, unspecified; J45.40 Moderate persistent asthma, uncomplicated; M25.511 Pain in right shoulder; Z68.41 Body mass index [BMI] 40.0-44.9, adult; Z79.4 Long term (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 | CPT/HCPCS: 99212 ==

== ENCOUNTER 2025-08-24 13:33 | Outpatient (REF) | payer OTHER, SELFPAY ==
--- NOTE | ~2025-08-24 | XR_ITS ---
EXAMINATION: XR SHOULDER, RIGHT CLINICAL INFORMATION: M25.511 - Pain in right shoulder COMPARISON: March 28, 2014. TECHNIQUE: AP external rotation, Grashey, scapular Y, and axillary views of the right shoulder. FINDINGS: Subchondral cyst formation and asymmetric joint space narrowing at the acromioclavicular joint. Subchondral cyst formation and volume loss in the greater tuberosity right humerus. No acute cortical disruption or malalignment. No lytic or blastic lesions. No soft tissue calcifications. XR/XR shoulder RT min 2V IMPRESSION: Degenerative changes, moderate, right shoulder. Electronically signed by: Kristopher Medina MD 08/24/2025 02:03 PM EDT
== END 2025-08-24 13:34 | disposition home or self-care (01) ==
LOC: HO.XRAY 13:33
PROVIDERS: PCP Internal Medicine
DX: M25.511 Pain in right shoulder (principal)
CPT/HCPCS: 73030

== ENCOUNTER → 2025-08-24 13:39 | Outpatient (BNV) | payer OTHER, SELFPAY | PROVIDERS: PCP Internal Medicine; Visit Provider Radiology Diagnostic Radiology | DX: M25.511 Pain in right shoulder (principal) | CPT/HCPCS: 73030 ==

== ENCOUNTER 2025-09-13 11:15 | Outpatient (REF) | payer OTHER, SELFPAY | END 2025-09-13 11:16 | disposition home or self-care (01) | LOC: HO.MAMMO 11:15 | PROVIDERS: PCP Internal Medicine; Visit Provider Internal Medicine | DX: Z12.31 Encounter for screening mammogram for malignant neoplasm of breast (principal) | CPT/HCPCS: 77063; 77067 ==

== ENCOUNTER → 2025-09-13 12:15 | Outpatient (BNV) | payer OTHER, SELFPAY | PROVIDERS: PCP Internal Medicine; Visit Provider Internal Medicine | DX: Z12.31 Encounter for screening mammogram for malignant neoplasm of breast (principal) | CPT/HCPCS: 77063; 77067 ==

== ENCOUNTER 2025-10-13 09:50 | Outpatient (AMB) | payer OTHER, SELFPAY ==
[2025-10-13 09:53] VITALS: BP 116/72; PULSE 72; O2SAT 98; BMI 39.5
--- NOTE | 2025-10-13 09:53 | A.OFFVIS_ITS ---
Vital Signs 10/13/25 09:53 Height 5 ft 5 in Weight 237 lb 3.478 oz BMI 39.5 BP 116/72 Blood Pressure Location Lt brachial Position Sitting Pulse 72 Pulse Source Pulse Oximeter Pulse Oximetry (%) 98 Oxygen Delivery Method Room Air Intake Visit Reasons: T2DM Intake Note: Patient present today for Type 2 Diabetes Mellitus Last Diabetic eye exam: Last exam was on 09/2025 Last Podiatry Visit: Doesn't have one and would like a referral. 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 Services: Tubular Splitting Machine Tender Present Tubular Splitting Machine Tender Name: Chetan Pleitez Information Interpreted: non-clinical & clinical Accompanied by: Self / Same As Patient Allergies egg (EGG) Allergy (Intermediate, Verified 10/13/25 10:00) VOMITING oxycodone (OXYCODONE) Allergy (Intermediate, Verified 10/13/25 10:00) NAUSEA/NIGHTMARES Penicillins (PCN) Allergy (Intermediate, Verified 10/13/25 10:00) RASH tramadol (TRAMADOL) Allergy (Intermediate, Verified 10/13/25 10:00) ITCHING acetaminophen (Percocet) Allergy (Unknown, Verified 10/13/25 10:00) none codeine Allergy (Unknown, Verified 10/13/25 10:00) nightmares HPI HPI T2DM: Details: Patient is a 60-year-old female with a significant past medical history of type 2 diabetes, hypertension, hyperlipidemia, obesity presenting today for a diabetic consultation. Previously following with my colleague. Phone Tubular Splitting Machine Tender used today Dm-last A1c was 7.4. She was diagnosed with diabetes around 1999. She is currently managed with metformin 1000 mg twice a day,Jardiance 25 mg daily and Lantus 10 units daily -She is not currently on the Mounjaro 5 mg as she has not had this since June. In the past she tried Trulicity but it made her sick. CGM-usage 42%, average glucose 182, G mi 7.7. Very hyperglycemic 6%, hyperglycemic 41%, in range 53%, hypoglycemic 0%. Hypoglycemia-rare, corrects with Hyperglycemia- no sx but states there have been some dietary indiscretions. Mounjaro was helpful for avoiding hyperglycemic since she says that she ate less. She gained 20 lb off of Mounjaro. Has a family history of type 2 diabetes. CV: Blood pressure today in the office is 116/72. She is currently on lisinopril 5 mg daily. Cholesterol is managed with atorvastatin and 40 mg nightly. 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 Maternal Grandmother Breast cancer Social History Household Members: Family Housing: Apartment Do you presently have visiting nurse or other home services: No Alcohol intake: never Patient Tobacco Use Status: Never used Tobacco Tobacco use type: Cigarette e-Cigarette/Vaping Use: Never Used Second Hand Smoke Exposure: Yes service: No Current occupational status: disabled Current occupational exposures/hazards: No Cognitive needs: Yes (cane) Hearing needs: No Vision needs: Yes (glasses) Female Reproductive History Menstrual Age of Menarche: 10 Physical Exam Const Orientation/consciousness: patient oriented x3 Neck Neck: Yes no lymphadenopathy Thyroid: Thyroid normal Carotids: no bruits Resp Auscultation: clear to auscultation bilaterally Cardio Rate: regular rate Rhythm: regular rhythm Heart sounds: S1 normal heart sound present and S2 normal heart sound present Peripheral pulses: dorsalis pedis present Neuro General: patient oriented x3, gait normal and no focal motor deficits Extrem Other: Monofilament sensation intact bilaterally. Vibratory sensation intact bilaterally. Skin intact. General: Yes normal to inspection Results Reviewed Results Reviewed: Laboratory Tests 07/25/25 11:27 Creatinine 0.60 Estimated GFR > 60 Hemoglobin A1c % 7.4 H AST 28 ALT 18 Triglycerides 273 H Cholesterol 239 H LDL Cholesterol, Calc 133 H HDL Cholesterol 52 Assessment & Plan Assessment & Plan (1) Diabetes type 2, uncontrolled: Code(s): E11.65 - Type 2 diabetes mellitus with hyperglycemia Category: Medical Qualifiers: Glycemic state: with hyperglycemia Qualified Code(s): E11.65 - Type 2 diabetes mellitus with hyperglycemia Plan: will start mounjaro 2.5 mg weeks continue lantus 10 units, jardiance 25 mg daily, and metformin 1000 mg bid refilled medications today reviewed rule of 15s refilled sensors today and updated to everett 3+ refilled back up testing supplies referred to podiatry (2) 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: Code(s): Z79.4 - [facility] (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 Category: Medical Plan: as above (3) Hypertension: Code(s): I10 - Essential (primary) hypertension Category: Medical Qualifiers: Hypertension type: unspecified Qualified Code(s): I10 - Essential (primary) hypertension Plan: wnl continue current treatment plan Orders: Referrals Podiatry Referral E11.65 - Type 2 diabetes mellitus with hyperglycemia, Z79.4 - 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 Medications: New tirzepatide (Mounjaro) 2.5 mg (0.5 mL) subcut QWEEK 2 mL 3RF lancets (FreeStyle Lancets) use daily as directed to check blood glucose 100 ea 3RF E11.65 - Type 2 diabetes mellitus with hyperglycemia blood-glucose sensor (FreeStyle Everett 3 Plus Sensor device) Use daily As directed to monitor glucose 6 ea 3RF E08.29 - Diabetes mellitus due to underlying condition with other diabetic kidney complication, R80.8 - Other proteinuria, Z79.4 - 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 Changed From pen needle, diabetic (BD Ultra-Fine Pippa Pen Needle) As directed 50 ea 11RF Z79.4 - [facility] (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 To pen needle, diabetic As directed 50 ea 11RF Z79.4 - [facility] (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 Refilled metformin 1,000 mg PO BID 180 tabs 3RF 30 days empagliflozin (Jardiance) 25 mg PO QAM 90 tabs 3RF 90 days E11.65 - Type 2 diabetes mellitus with hyperglycemia blood sugar diagnostic (FreeStyle Lite Strips) 3 times daily 100 ea 6RF insulin glargine 10 units (0.1 mL) subcut DAILY 3 mL 6RF 30 days E11.65 - Type 2 diabetes mellitus with hyperglycemia blood-glucose meter (FreeStyle Tucker Lite kit) As directed 1 ea 1RF E11.9 - Type 2 diabetes mellitus without complications, Z79.4 - 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 Discontinued tirzepatide (Fer) Discontinued Reason: Doctor's Order 5 mg (0.5 mL) subcut QWEEK 28 days 2 mL 0RF Coding Level of Care Code Est Pt Level 4 (62646) Complex visit Add On G2211 Diagnoses Uncontrolled type 2 diabetes mellitus with hyperglycemia E11.65 Glycemic state: with hyperglycemia 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
[2025-10-13 10:12] LABS: Glucose, Whole Blood 168 mg/dL (60-115)
== END 2025-10-13 10:28 | disposition home or self-care (01) ==
LOC: HO.ENCR 09:51
PROVIDERS: PCP Internal Medicine; Visit Provider Physician Assistant
DX: E11.65 Type 2 diabetes mellitus with hyperglycemia (principal); Z79.4 Long term (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; I10 Essential (primary) hypertension

== ENCOUNTER → 2025-10-13 09:50 | Outpatient (BNVA) | payer OTHER, SELFPAY | PROVIDERS: PCP Internal Medicine; Visit Provider Physician Assistant | DX: E11.65 Type 2 diabetes mellitus with hyperglycemia (principal); I10 Essential (primary) hypertension; Z79.4 Long term (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 | CPT/HCPCS: 82947; 99212 ==

== ENCOUNTER 2025-10-18 09:41 | Outpatient (AMB) | payer OTHER, SELFPAY ==
--- NOTE | 2025-10-18 09:44 | A.OFFVIS_ITS ---
Vital Signs 10/18/25 09:51 Height 5 ft 5 in Weight 225 lb BMI 37.4 Intake Visit Reasons: Right shoulder pain and weakness Intake Note: Pina is a 60 year old female right hand dominant who presents with complaints of progressively worsening right shoulder pain and weakness. The patient states that she fell onto her right arm approximately 6 months ago. Since that time she has had difficulty lifting her right hand to shoulder height. She states that prior to her fall she had full range of motion. She has failed the last 6 weeks of conservative treatment which has included Tylenol, anti-inflammatory medicines and a home exercise program. The patient also reports intermittent triggering of her right index finger. She has not been seen by a hand specialist. Qualitative Field Project Manager Required: Yes Qualitative Field Project Manager Services: Qualitative Field Project Manager Present Qualitative Field Project Manager Name: Saundra [id number] Allergies egg (EGG) Allergy (Intermediate, Verified 10/13/25 10:00) VOMITING oxycodone (OXYCODONE) Allergy (Intermediate, Verified 10/13/25 10:00) NAUSEA/NIGHTMARES Penicillins (PCN) Allergy (Intermediate, Verified 10/13/25 10:00) RASH tramadol (TRAMADOL) Allergy (Intermediate, Verified 10/13/25 10:00) ITCHING acetaminophen (Percocet) Allergy (Unknown, Verified 10/13/25 10:00) none codeine Allergy (Unknown, Verified 10/13/25 10:00) nightmares Medication List - Last Reconciled 10/18/25 by Massimo Kasper MD [Cleansing Wipes As directed] acetaminophen 650 mg (2 x 325 mg) PO Q6H PRN 30 days [Adult Protective procare underwear As directed] [adult- pull ups large As directed] albuterol sulfate 90 mcg/actuation 2 puffs inhalation Q6-8H PRN 90 days aspirin 1 tab PO DAILY 30 days atorvastatin 40 mg PO BEDTIME 90 days [bed rail As directed] blood sugar diagnostic (FreeStyle Lite Strips) 3 times daily blood-glucose meter (FreeStyle [place] Lite kit) As directed blood-glucose sensor (FreeStyle Everett 3 Plus Sensor device) Use daily As directed to monitor glucose blood-glucose,revit drafter,cont (FreeStyle Everett 3 Raymond) As directed cane As directed cholecalciferol (vitamin D3) (Vitamin D3) 50 mcg PO DAILY clotrimazole 1% 1 appl See Protocol topical BID 30 days cyclobenzaprine 10 mg PO Q8H PRN 10 days diclofenac sodium 1% (Arthritis Pain (diclofenac)) 4 grams topical BID PRN docusate sodium 100 mg PO BID PRN 30 days duloxetine 60 mg PO DAILY empagliflozin (Jardiance) 25 mg PO QAM 90 days fluticasone furoate-vilanterol 200-25 mcg/dose (Breo Ellipta) 1 inh inhalation DAILY 30 days guaifenesin ER (Mucinex) 600 mg PO Q12H PRN [Hand held shower head As directed] insulin glargine 10 units (0.1 mL) subcut DAILY 30 days lancets (FreeStyle Lancets) use daily as directed to check blood glucose lisinopril 5 mg PO DAILY 90 days meloxicam 15 mg PO DAILY PRN 30 days metformin 1,000 mg PO BID 30 days montelukast 10 mg PO DAILY 90 days omalizumab (Xolair) 300 mg subcut Q2W omeprazole 20 mg PO DAILY 90 days pen needle, diabetic As directed [RAISED TOILET SEAT with HANDLES As directed] [RECLINER As directed] [RECLINER CHAIR As directed] sennosides (Senna Lax) 8.6 mg PO BEDTIME 30 days sertraline 150 mg (3 x 50 mg) PO DAILY 30 days sertraline 100 mg PO DAILY Shower Chair As directed sumatriptan succinate 50 mg PO tirzepatide (Mounjaro) 2.5 mg (0.5 mL) subcut QWEEK topiramate 25 mg PO DAILY trazodone 50 mg PO BEDTIME MRX1 PRN 30 days [Under pads Incontinent Procare As directed] underpads As directed walker (Ultra-Light Rollator misc) As directed [wipes As directed] [facility] Medical History Acute respiratory disease Cerebellar ataxia Primary osteoarthritis of left knee Constipation Candidal intertrigo Meniere's disease Memory impairment Arthritis Diabetic acidosis, type I Obesity (BMI 30-39.9) Depression Anxiety Insomnia Iron deficiency Vitamin D deficiency Osteoarthrosis GERD without esophagitis Allergic rhinitis Pure hypercholesterolemia Diabetes mellitus Benign essential hypertension Fibromyalgia 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 Maternal Grandmother Breast cancer Social History Household Members: Family Housing: Apartment Do you presently have visiting nurse or other home services: No Alcohol intake: never Patient Tobacco Use Status: Never used Tobacco Tobacco use type: Cigarette e-Cigarette/Vaping Use: Never Used Second Hand Smoke Exposure: Yes service: No Current occupational status: disabled Current occupational exposures/hazards: No Cognitive needs: Yes (cane) Hearing needs: No Vision needs: Yes (glasses) Female Reproductive History Menstrual Age of Menarche: 10 Physical Exam Vital Signs: BMI result Body Mass Index 37.4 Extrem Other: Right shoulder examination shows decreased range of motion when compared to her left shoulder, 3/5 strength with supraspinatus testing, positive impingement signs, no instability Results Reviewed Results Reviewed: X-rays of the patient's right shoulder show severe acromioclavicular joint narrowing, a type 2 acromion, no acute bony abnormalities Assessment & Plan Assessment & Plan (1) Rotator cuff insufficiency of right shoulder: Code(s): M25.311 - Other instability, right shoulder Category: Medical Plan Ms. Higgins presents with progressively worsening right shoulder pain and weakness due to impingement syndrome and most likely a full-thickness rotator cuff tear. Thus, I will send the patient for an MRI of her right shoulder for further evaluation. I will see her back once the MRI is completed to discuss the findings and treatment options. I will also arrange for her to have a follow-up appointment with our hand specialist, Wagner GOMEZ, for further evaluation of her right index trigger finger. Feel free to call me at any time should questions regarding her orthopedic management arise. Thank you very much for asking me to see this very friendly patient. I spent 22 minutes in reviewing the patient's records and imaging studies, seeing the patient and documenting in the medical record. Orders: Orders MR shoulder RT wo con 10/19/25 M25.311 - Other instability, right shoulder Coding Level of Care Code New Pt Level 3 (43819) Add On Problem Visit Only Diagnoses Rotator cuff insufficiency of right shoulder M25.311
[2025-10-18 09:51] VITALS: BMI 37.4
== END 2025-10-18 10:03 | disposition home or self-care (01) ==
LOC: HO.HOS 09:41
PROVIDERS: PCP Internal Medicine; Visit Provider Orthopaedic Surgery
DX: M25.311 Other instability, right shoulder (principal)
CPT/HCPCS: 99203; G2211

== ENCOUNTER → 2025-10-18 09:41 | Outpatient (BNVA) | payer OTHER, SELFPAY | PROVIDERS: PCP Internal Medicine; Visit Provider Orthopaedic Surgery | DX: M25.311 Other instability, right shoulder (principal); M75.41 Impingement syndrome of right shoulder; R29.898 Other symptoms and signs involving the musculoskeletal system | CPT/HCPCS: 99202 ==

== ENCOUNTER 2025-11-07 10:48 | Outpatient (AMB) | payer OTHER, SELFPAY ==
[2025-11-07 11:35] VITALS: BP 118/78; PULSE 66; O2SAT 98; BMI 39.5
--- NOTE | 2025-11-07 11:35 | A.OFFPC_ITS ---
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 Accompanied by: Self / Same As Patient Allergies egg (EGG) Allergy (Intermediate, Verified 11/12/25 21:57) VOMITING oxycodone (OXYCODONE) Allergy (Intermediate, Verified 11/12/25 21:57) NAUSEA/NIGHTMARES Penicillins (PCN) Allergy (Intermediate, Verified 11/12/25 21:57) RASH tramadol (TRAMADOL) Allergy (Intermediate, Verified 11/12/25 21:57) ITCHING acetaminophen (Percocet) Allergy (Unknown, Verified 11/12/25 21:57) none codeine Allergy (Unknown, Verified 11/12/25 21:57) nightmares Medication List - Last Reconciled 11/12/25 by Dwayne Stone MD [Cleansing Wipes As directed] acetaminophen 650 mg (2 x 325 mg) PO Q6H PRN 30 days [Adult Protective procare underwear As directed] [adult- pull ups large As directed] albuterol sulfate 90 mcg/actuation 2 puffs inhalation Q6-8H PRN 90 days aspirin 1 tab PO DAILY 90 days atorvastatin 40 mg PO BEDTIME 90 days azithromycin For 250 mg dose pack: take 500 mg today (day 1), then 250 mg for 4 days (days 2-5) PO [bed rail As directed] blood sugar diagnostic (FreeStyle Lite Strips) 3 times daily blood-glucose meter (FreeStyle [place] Lite kit) As directed blood-glucose sensor (FreeStyle [place] 3 Plus Sensor device) Use daily As directed to monitor glucose blood-glucose,paraprofessional education assistant,cont (FreeStyle [place] 3 [place]) As directed cane As directed cholecalciferol (vitamin D3) (Vitamin D3) 50 mcg PO DAILY clotrimazole 1% 1 appl See Protocol topical BID 30 days cyclobenzaprine 10 mg PO Q8H PRN 10 days diclofenac sodium 1% (Arthritis Pain (diclofenac)) 4 grams topical BID PRN docusate sodium 100 mg PO BID PRN 30 days doxycycline hyclate 100 mg PO BID 7 days duloxetine 60 mg PO DAILY empagliflozin (Jardiance) 25 mg PO QAM 90 days fluticasone furoate-vilanterol 200-25 mcg/dose (Breo Ellipta) 1 inh inhalation DAILY 30 days guaifenesin ER (Mucinex) 600 mg PO Q12H PRN [Hand held shower head As directed] insulin glargine 10 units (0.1 mL) subcut DAILY 30 days lancets (FreeStyle Lancets) use daily as directed to check blood glucose lisinopril 5 mg PO DAILY 90 days meloxicam 15 mg PO DAILY PRN 30 days metformin 1,000 mg PO BID 30 days montelukast 10 mg PO DAILY 90 days omalizumab (Xolair) 300 mg subcut Q2W omeprazole 20 mg PO DAILY 90 days pen needle, diabetic As directed prednisone 40 mg (2 x 20 mg) PO DAILY [RAISED TOILET SEAT with HANDLES As directed] [RECLINER As directed] [RECLINER CHAIR As directed] sennosides (Senna Lax) 8.6 mg PO BEDTIME 30 days sertraline 150 mg (3 x 50 mg) PO DAILY 30 days sertraline 100 mg PO DAILY Shower Chair As directed sumatriptan succinate 50 mg PO tirzepatide (Mounjaro) 2.5 mg (0.5 mL) subcut QWEEK topiramate 25 mg PO DAILY trazodone 50 mg PO BEDTIME MRX1 PRN 30 days [Under pads Incontinent Procare As directed] underpads As directed walker (Ultra-Light Rollator misc) As directed [wipes As directed] Tobacco use date assessed: 11/07/25 Dental Screening Dental Screen Date: 11/07/25 Did you have a dental visit in the last 12 months?: No Did you have a dental problem in the last 6 months where you did not have access to dental care?: No Was dental information given to patient?: Patient has dentist HPI 3 Months HPI Details - The patient is a 60-year-old female pr esenting for follow-up of persistent bronchitis and management of chronic conditions. - She reports having bronchitis with sig nificant phlegm. - Two weeks ago, she was prescribed Zith romax by her purchasing officer, which provided some relief, but she continues to experience some congestion. - The associated cough has been causing difficulty sleeping. - She denies any fever or sore throat - Denies any chest pains - No nausea/vomiting, no abdominal pain - No change in bowel habits noted - The patient has a history of fibromyal trevor. - She reports pain in both knees and rec alls that an X-ray three years ago showed arthritis. - She also has shoulder pain and was see n by an ancillary specialist a month and a half ago, who ordered an MRI of the shoulder; however, she has not yet been called for the appointment. - The last physical exam was in . - She also needs her Diclofenac pain gel Rx refilled - She was not able to get her follow up labs done prior to her appointment today; states that she will try to get her labs done early tomorrow morning [facility] Medical History (Updated 11/12/25 @ 22:09 by Dwayne Stone MD) Right knee pain Acute respiratory disease Cerebellar ataxia Primary osteoarthritis of left knee Constipation Candidal intertrigo Meniere's disease Memory impairment Arthritis Diabetic acidosis, type I Obesity (BMI 30-39.9) Depression Anxiety Insomnia Iron deficiency Vitamin D deficiency Osteoarthrosis GERD without esophagitis Allergic rhinitis Pure hypercholesterolemia Diabetes mellitus Benign essential hypertension Fibromyalgia 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 Maternal Grandmother Breast cancer Social History Household Members: Family Housing: Apartment Do you presently have visiting nurse or other home services: No Alcohol intake: never Patient Tobacco Use Status: Never used Tobacco Tobacco use type: Cigarette e-Cigarette/Vaping Use: Never Used Second Hand Smoke Exposure: Yes service: No Current occupational status: disabled Current occupational exposures/hazards: No Cognitive needs: Yes (cane) Hearing needs: No Vision needs: Yes (glasses) Female Reproductive History Menstrual Age of Menarche: 10 Questionnaire PHQ-9 Over the last 2 weeks, how often have you been bothered by any of the following problems? 1. Little interest or pleasure in doing things: not at all 2. Feeling down, depressed, or hopeless: not at all 3. Trouble falling or staying asleep, or sleeping too much: not at all 4. Feeling tired or having little energy: not at all 5. Poor appetite or overeating: not at all 6. Feeling bad about yourself - or that you are a failure or have let yourself or your family down: not at all 7. Trouble concentrating on things, such as reading the newspaper or watching television: not at all 8. Moving or speaking so slowly that other people could have noticed. Or the opposite - being so fidgety or restless that you have been moving around a lot more than usual: not at all 9. Thoughts that you would be better off or of hurting yourself in some way: not at all Total score: 0 Depression Screening Interpretation: Negative Depression Screening Done: Yes 35103 - PHQ-9 Billing: Yes Source: Developed by Drs. Kory Jerez, Nina Minaya, Basilio Peterson and colleagues, with an educational sheldon from State. Thrive Questionnaire Date Thrive assessed: 11/07/25 I am a: Patient What is your living situation today?: I have a steady place to live Within the past 12 months, did the food you bought not last and you didn't have the money to get more?: Often true Within the past 12 months, did you worry whether your food would run out before you got money to buy more?: Often true Do you have trouble paying for medicines?: No Do you have trouble getting transportation to medical appointments?: No Do you have trouble paying your heating and electricity bill?: I choose not to answer this question Do you have trouble taking care of your child, family member or friend?: No Do you have trouble with day-to-day activities such as bathing, preparing meals, shopping, managing finances, etc.?: No Are you currently unemployed and looking for a job?: No Are you interested in more education?: No Please select the resources that you would like help with: None Currently or been in a relationship where the following occur: I choose not to answer THRIVE Score: 2 AUDIT C Alcohol Use Questionnaire (AUDIT-C) 1. How often do you have a drink containing alcohol?: Never 3. How often do you have six or more drinks on one occasion?: Never Total Score: 0 Score Reviewed/Action Taken: Yes RACHAEL-7 AMB Questionnaire RACHAEL-7 Date RACHAEL - 7 assessed: 11/07/25 Feeling nervous, anxious, or on edge: 0 = Not at all Not being able to stop or control worryin = Not at all Worrying too much about different things: 0 = Not at all Trouble relaxin = Not at all Being so restless that it is hard to sit still: 0 = Not at all Becoming easily annoyed or irritable: 0 = Not at all Feeling afraid as if something awful might happen: 0 = Not at all Total RACHAEL-7 score (0-4 normal; 5-9 mild; 10-14 moderate; 15-21 severe): 0 Source: Developed by Drs. Kory Jerez, Nina Minaya, Basilio Peterson and colleagues, with an educational sheldon from State. Review of Systems Const Denies chills, Reports difficulty sleeping, Reports fatigue, Denies fever(s) and Denies headache(s) ENT Denies dysphagia, Denies dizziness, Denies otalgia, Denies headache(s), Denies neck pain, Denies odynophagia and Denies sore throat Card Denies chest pain, Denies irregular heart rhythm, Denies palpitations and Reports dyspnea on exertion (mild) Resp Reports chest congestion, Reports cough (on and off), Reports dyspnea on exertion (mild) and Denies wheezing GI Reports abdominal pain (recurrent over the right side of the abdomen x few weeks), Denies hematochezia, Denies constipation, Denies dysphagia, Denies heartburn, Reports loose stools (frequent, including postprandially, x few weeksssssssss), Denies nausea, Denies odynophagia and Denies vomiting Denies difficulty voiding, Denies nocturia, Denies dysuria, Reports urinary incontinence (at times, mostly urge incontinence) and Denies urinary urgency Musc Reports abnormal gait (unsteady), Reports back pain (over the lower back), Reports myalgias (diffuse), Reports arthralgias (involving multiple joints, especially over her R knee currently), Denies neck pain, Reports numbness (in her right hand) and Reports tingling (in the right hand and right arm, on and off) Skin/Breast Denies lesions and Denies rash Neuro Reports abnormal gait (unsteady), Denies dizziness, Denies headache(s), Reports numbness (in her right hand) and Reports tingling (in the right hand and right arm, on and off) Psych Denies anxiety and Reports depression (is controlled on meds ) Endo Reports fatigue and Denies palpitations Jerson/Lymph Denies easy bruising Aller/Immun Denies wheezing Physical exam (Primary Care) Vital Signs: Last Vital Signs Pulse 66 11/07/25 11:35 BP 118/78 11/07/25 11:35 Pulse Ox 98 11/07/25 11:35 Oxygen Delivery Method Room Air 11/07/25 11:35 BMI result Body Mass Index 39.5 Tobacco/Smoking Status: Tobacco use Status Tobacco use date assessed 11/07/25 11/07/25 11:42 Patient Tobacco Use Status Never used Tobacco 11/07/25 11:42 Tobacco use type Cigarette 11/07/25 11:42 e-Cigarette/Vaping Use Never Used 11/07/25 11:42 PHQ-9: PHQ-9 Score PHQ-9: Total score 0 11/07/25 11:57 Depression Screening Interpretation: Negative Thrive Assessment: Date of Thrive Assessment Date Thrive assessed 11/07/25 11/07/25 11:42 Currently or been in a relationship where the following occur: I choose not to answer Const General: no acute distress and alert HENMT Ears: TM's normal bilaterally and EAC's normal Throat: Yes posterior oropharynx normal and Yes tonsils normal (no TP congestion noted) Neck Neck: Yes supple and No lymphadenopathy Thyroid: Thyroid normal Resp Auscultation: no crackles, no rales, rhonchi (scattered) throughout, no wheezes and diminished lung sounds (slighty) bilateral Cardio Rate: regular rate Rhythm: regular rhythm Heart sounds: no murmurs GI Palpation (GI): Soft to palpation, Tenderness to palpation present (GI) (mild, over the right side of the abdomen), no guarding, not rigid and No Rebound tenderness present Auscultation: normal bowel sounds General: Yes no CVA tenderness Back/Spine/Pelvis Back: no CVA tenderness Thoracic/Lumbar Spine: paraspinal muscle tenderness bilaterally in the lower thoracic, in the upper lumbar, in the mid lumbar and in the lower lumbar and lumbar spinal tenderness Skin Lesions: no lesions Rashes: no rashes Extrem General: Yes no clubbing, cyanosis or edema Right upper extremity: shoulder/upper arm Details: tenderness Location: of the A-C joint and of the scapula; no swelling Left upper extremity: elbow/forearm Details: tenderness; no swelling Right lower extremity: knee Details: tenderness Coding Level of Care Code Est Pt Level 4 (14669) Diagnoses Exacerbation of persistent asthma, unspecified asthma severity J45.901 Asthma severity: unspecified severity Asthma persistence: persistent Right knee pain, unspecified chronicity M25.561 Chronicity: unspecified Paresthesia of right upper extremity R20.2 Type 2 diabetes mellitus without complication, with long-term current use of insulin E11.9; Z79.4 Diabetes mellitus type: type 2 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 Diabetes mellitus complication status: without complication Pure hypercholesterolemia E78.00 Benign essential hypertension I10 Cerebellar ataxia G11.9 GERD without esophagitis K21.9 Primary osteoarthritis, unspecified site M19.91 Osteoarthritis location: unspecified site Osteoarthritis type: primary Primary osteoarthritis of left knee M17.12 Allergic rhinitis, unspecified seasonality, unspecified trigger J30.9 Allergic rhinitis trigger: unspecified Allergic rhinitis seasonality: unspecified Vitamin D deficiency E55.9 Constipation, unspecified constipation type K59.00 Constipation type: unspecified constipation type Fibromyalgia M79.7 Insomnia, unspecified type G47.00 Insomnia type: unspecified Anxiety F41.9 MDD (major depressive disorder), recurrent episode, moderate F33.1 Obesity (BMI 30-39.9) E66.9 Additional Codes PHQ-9 - 39815 - PHQ-9 Billing: Yes ([id number]) Assessment & Plan Assessment & Plan (1) Asthma exacerbation: Code(s): J45.901 - Unspecified asthma with (acute) exacerbation Category: Medical Qualifiers: Asthma severity: unspecified severity Asthma persistence: persistent Qualified Code(s): J45.901 - Unspecified asthma with (acute) exacerbation Plan: Will send patient for chest x-rays for further evaluation Will also start her empirically on Doxycycline 100 mg BID x 7 days Continue Breo Ellipta 225 mcg 1 inhalation QD and Albuterol HFA 1-2 inhalations every 6 hours PRN Patient is also on Xolair injections at 300 mg SQ every 2 weeks and states that her asthma overall has been much better controlled with the injections Follow-up with pulmonary as scheduled (2) Right knee pain: Code(s): M25.561 - Pain in right knee Category: Medical Qualifiers: Chronicity: unspecified Qualified Code(s): M25.561 - Pain in right knee Plan: Will send patient for x-rays of the right knee for further evaluation (3) Paresthesia of right upper extremity: Code(s): R20.2 - Paresthesia of skin Category: Medical Plan: Suspect that patient may have some form of neuropathy in her right arm, including possible median neuropathy We have referred patient for EMG and NCV of the right arm for further evaluation and she was scheduled to have these done sometime a few months but for unclear reasons, these were not done and she has never been rescheduled Have advised patient to reach out to central scheduling to see if they can get her rescheduled for these tests MARTHA (4) Diabetes mellitus: Code(s): E11.9 - Type 2 diabetes mellitus without complications Category: Medical Qualifiers: Diabetes mellitus type: type 2 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 Diabetes mellitus complication status: without complication Qualified Code(s): E11.9 - Type 2 diabetes mellitus without complications; Z79.4 - long 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 Plan: Her in-office HgbA1c was at 7.2% when last checked a few months ago (HgbA1c was previously at 6.7%) - goal is least <7.0% but ideally <6.5% Reinforced diabetic diet Continue Metformin 1000 mg BID, Jardiance 25 mg QD and Mounjaro 7.5 mg SQ once a week Her Lantus was held by endocrinology last year due to her well-controlled diabetes Follow-up with endocrinology as scheduled (5) Pure hypercholesterolemia: Code(s): E78.00 - Pure hypercholesterolemia, unspecified Category: Medical Plan: Patient was not able to get her follow up labs done prior to her appointment today; states that she will try to get her labs done early tomorrow morning Reinforced low-cholesterol diet Continue Atorvastatin 40 mg QD Will recheck her labs and fasting lipids again in 3 months for follow-up (6) Benign essential hypertension: Code(s): I10 - Essential (primary) hypertension Category: Medical Plan: Reinforced low sodium diet - goal is systolic BP of at least 120 to 130 mm or less Continue Lisinopril 5 mg QD (7) Cerebellar ataxia: Code(s): G11.9 - Hereditary ataxia, unspecified Category: Medical Plan: She was diagnosed by neurology in September 2022 with cerebellar ataxia, when she was referred for further evaluation of her recurrent dizziness MRI of the brain done in September 2022 revealed (+) scattered nonspecific white matter T2 hyperintensities in both cerebral hemispheres with no evidence for acute or subacute cerebral ischemia, hemorrhage, extra-axial fluid collection, space-occupying process, mass effect or hydrocephalus Follow up with neurology as scheduled (8) GERD without esophagitis: Code(s): K21.9 - Gastro-esophageal reflux disease without esophagitis Category: Medical Plan: Dietary restrictions reinforced Continue Omeprazole 20 mg QD (9) Osteoarthrosis: Code(s): M19.90 - Unspecified osteoarthritis, unspecified site Category: Medical Qualifiers: Osteoarthritis location: unspecified site Osteoarthritis type: primary Qualified Code(s): M19.91 - Primary osteoarthritis, unspecified site Plan: X-rays of both hands done a couple of years ago showed (+) mild OA changes in the right hand; left hand x-rays were normal except for an old metacarpal fracture that has since healed She was diagnosed with polyarthralgia by Rheumatology a couple of years ago and is currently requesting for a referral again to rheumatology as she has not been seen in a while - referral to rheumatology was placed a few months ago and she is now scheduled to be seen by Dr. Allison in January 2026 She is encouraged again on regular hand exercises to help minimize her hand stiffness and pain Continue Tramadol 50 mg TID PRN and Tylenol Arthritis 650 mg 3 times a day as needed, Piroxicam 10 mg once a day with food as needed and Diclofenac 1% topical Gel TID PRN (Rx refillled) Follow up with orthopedics as scheduled (10) Primary osteoarthritis of left knee: Code(s): M17.12 - Unilateral primary osteoarthritis, left knee Category: Medical Plan: X-rays of the left knee done last year revealed (+) moderate degenerative changes Will consider orthopedic referral if her knee pain gets worse (11) Allergic rhinitis: Code(s): J30.9 - Allergic rhinitis, unspecified Category: Medical Qualifiers: Allergic rhinitis trigger: unspecified Allergic rhinitis seasonality: unspecified Qualified Code(s): J30.9 - Allergic rhinitis, unspecified Plan: Continue Montelukast 10 mg QD, Loratadine 10 mg QD PRN and Fluticasone 50 mcg nasal spray QD PRN (12) Vitamin D deficiency: Code(s): E55.9 - Vitamin D deficiency, unspecified Category: Medical Plan: Continue Vitamin D3 2000 units QD (13) Constipation: Code(s): K59.00 - Constipation, unspecified Category: Medical Qualifiers: Constipation type: unspecified constipation type Qualified Code(s): K59.00 - Constipation, unspecified Plan: Improved; reinforced increased oral fluids and dietary fiber intake Continue Senna 8.6 mg QD PRN (14) Fibromyalgia: Code(s): M79.7 - Fibromyalgia Category: Medical Plan: Patient is encouraged again on regular exercise and physical activity to help manage her fibromyalgia symptoms Continue Duloxetine 60 mg once a day and Tizanidine 4 mg Q HS PRN Continue Pregabalin 50 mg BID - she is tolerating Lyrica so far (she was taken off Gabapentin previously as she was concerned that the medication was affecting her memory) (15) Insomnia: Code(s): G47.00 - Insomnia, unspecified Category: Medical Qualifiers: Insomnia type: unspecified Qualified Code(s): G47.00 - Insomnia, unspecified Plan: Sleep hygiene reinforced Continue Trazodone 50 mg Q HS PRN (16) Anxiety: Code(s): F41.9 - Anxiety disorder, unspecified Category: Medical Plan: Continue Lorazepam 0.5 mg Q HS PRN and Hydroxyzine 25 mg 3 times a day as needed (17) MDD (major depressive disorder), recurrent episode, moderate: Code(s): F33.1 - Major depressive disorder, recurrent, moderate Category: Medical Plan: Continue Sertraline 150 mg QD Follow-up with Psychiatry as scheduled (18) Obesity (BMI 30-39.9): Code(s): E66.9 - Obesity, unspecified Category: Medical Plan: Reinforced diet; exercise and weight loss are unrealistic given patient's physical issues and multiple comorbidities Plan Follow up as scheduled next month Orders: Orders XR chest 2V 11/08/25 J98.8 - Other specified respiratory disorders XR knee RT 4V 11/08/25 M25.561 - Pain in right knee Medications: New doxycycline hyclate 100 mg PO BID 14 caps 0RF 7 days Refilled diclofenac sodium 1% (Arthritis Pain (diclofenac)) apply to single knee, ankle, foot; for foot includes sole/toes/top of foot 4 grams topical BID PRN 150 grams 3RF pain
== END 2025-11-07 11:59 | disposition home or self-care (01) ==
LOC: HO.HMCH 10:49
PROVIDERS: PCP Internal Medicine; Visit Provider Internal Medicine
DX: M25.561 Pain in right knee (principal); E11.9 Type 2 diabetes mellitus without complications; Z79.4 Long term (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; F33.1 Major depressive disorder, recurrent, moderate; G11.9 Hereditary ataxia, unspecified; J45.901 Unspecified asthma with (acute) exacerbation; R20.2 Paresthesia of skin; E78.00 Pure hypercholesterolemia, unspecified; I10 Essential (primary) hypertension; K21.9 Gastro-esophageal reflux disease without esophagitis; M19.91 Primary osteoarthritis, unspecified site; M17.12 Unilateral primary osteoarthritis, left knee; J30.9 Allergic rhinitis, unspecified; E55.9 Vitamin D deficiency, unspecified; K59.00 Constipation, unspecified; M79.7 Fibromyalgia; G47.00 Insomnia, unspecified; F41.9 Anxiety disorder, unspecified; E66.9 Obesity, unspecified

== ENCOUNTER → 2025-11-07 10:48 | Outpatient (BNVA) | payer OTHER, SELFPAY | PROVIDERS: PCP Internal Medicine; Visit Provider Internal Medicine | DX: J45.901 Unspecified asthma with (acute) exacerbation (principal); M25.561 Pain in right knee; R20.2 Paresthesia of skin; E11.9 Type 2 diabetes mellitus without complications; E78.00 Pure hypercholesterolemia, unspecified; I10 Essential (primary) hypertension; G11.9 Hereditary ataxia, unspecified; K21.9 Gastro-esophageal reflux disease without esophagitis; M19.91 Primary osteoarthritis, unspecified site; M17.12 Unilateral primary osteoarthritis, left knee; J30.9 Allergic rhinitis, unspecified; E55.9 Vitamin D deficiency, unspecified; K59.00 Constipation, unspecified; M79.7 Fibromyalgia; G47.00 Insomnia, unspecified; F41.9 Anxiety disorder, unspecified; F33.1 Major depressive disorder, recurrent, moderate; E66.9 Obesity, unspecified; Z68.39 Body mass index [BMI] 39.0-39.9, adult; Z79.4 Long term (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 | CPT/HCPCS: 96127; 99212 ==

== ENCOUNTER 2025-11-08 08:09 | Outpatient (REF) | payer OTHER, SELFPAY ==
--- NOTE | ~2025-11-08 | XR_ITS ---
EXAMINATION: XR KNEE, lateral CLINICAL INFORMATION: M25.562 - Pain in left knee COMPARISON: Left knee x-ray November 2021 TECHNIQUE: Standing AP, tunnel and lateral views of both knees and sunrise view of both knees FINDINGS: Right: Bone alignment is normal. No fracture or dislocation. Arthritis at the patellofemoral joint with joint space narrowing and osteophyte formation. Small osteophytes at the lateral femoral tibial joint. Osteophytes at the quadriceps tendon insertion to the patella, patellar tendon origin and insertion. No joint effusion. Left: Bone alignment is normal. No fracture or dislocation. Tricompartment arthritis with medial femoral tibial joint space narrowing and osteophyte formation. Small osteophytes at the lateral femoral tibial joint. Small osteophytes at the patellofemoral joint. Osteophytes at the quadriceps tendon insertion and patellar tendon origin. No joint effusion. XR/XR Knee Kumar 4V IMPRESSION: Bilateral arthritis. Electronically signed by: Cecilia Ames MD 11/08/2025 09:33 AM ROXANNE
--- NOTE | ~2025-11-08 | XR_ITS ---
EXAMINATION: XR CHEST 2 VIEWS HISTORY: J98.8 - Other specified respiratory disorders COMPARISON: Comparison is made with the prior examination dated 09/09/2025. FINDINGS: PA and lateral views of the chest are submitted. Again seen is a calcified granuloma at the left lung apex. The lungs are otherwise clear. There is no pleural effusion, pneumothorax, or pulmonary vascular congestion. The heart is normal in size. There is degenerative disc disease of the spine. XR/XR chest 2V IMPRESSION: No acute cardiopulmonary abnormality. Electronically signed by: Kory Miller MD 11/08/2025 09:08 AM EST
[2025-11-08 08:34] LABS: MANUAL DIFF FLAG NO
[2025-11-08 08:52] LABS: Hematocrit 43.5 % (37.0-47.0); Hemoglobin 13.6 g/dl (12.0-16.0); Imm Gran Abs Auto 0.03 X10*3/uL (0.00-0.03); Imm Gran Pct Auto 0.4 % (0.0-0.4); Lymphocytes Absolute Auto 2.3 X10*3/uL (1.2-4.9); Mean Corpuscular HGB Conc 31.3 g/dl (31.0-35.0); Mean Corpuscular Hemoglobin 25.6 pg (27.0-33.0); Mean Corpuscular Volume 81.8 fL (80.0-98.0); NRBC Abs Auto 0.000 X10*3/uL (0.0-0.012); NRBC Pct Auto 0.0 /100WBC (0.0-0.2); Platelet Count 210 X10*3/uL (160-400); Red Blood Count 5.32 X10*6/uL (4.20-5.50); White Blood Count 7.4 X10*3/uL (4.8-10.8)
[2025-11-08 09:20] LABS: Appearance Urine Clear; Glucose Urine UA >=1000 mg/dL (Negative); PH 5.0 (5.0-9.0); Specific Gravity - Urine >= 1.030 (1.005-1.025); UMIC TRIGGER UACC YES
[2025-11-08 09:28] LABS: Alanine Aminotransferase 27 U/L (0-31); Albumin Level 4.5 g/dL (3.5-5.0); Alkaline Phosphatase 153 U/L (39-117); Anion Gap 12 (12-20); Aspartate Amino Transferase 26 U/L (5-31); Blood Urea Nitrogen 16 mg/dL (9-16); Calcium 9.2 mg/dL (8.4-10.2); Carbon Dioxide 24 mmol/L (22-29); Chloride 107 mmol/L (96-108); Cholesterol 191 mg/dL (<200); Estimated Glomerular Filt Rate > 60; HDL Cholesterol 77 mg/dL (>40); Potassium 4.3 mmol/L (3.3-5.1); Sodium 139 mmol/L (135-145); Total Protein 7.4 g/dL (6.5-8.0); Triglycerides 79 mg/dL (<150)
[2025-11-08 09:52] LABS: Folate 12.1 ng/mL (> or = 4.0); Vitamin B12 616 pg/mL (200-900)
== END 2025-11-08 08:10 | disposition home or self-care (01) ==
LOC: HO.XRAY 08:09
PROVIDERS: PCP Internal Medicine; Visit Provider Internal Medicine
DX: E11.9 Type 2 diabetes mellitus without complications (principal); E78.00 Pure hypercholesterolemia, unspecified; E53.8 Deficiency of other specified B group vitamins; E55.9 Vitamin D deficiency, unspecified; M79.7 Fibromyalgia; D64.9 Anemia, unspecified; J98.8 Other specified respiratory disorders; M25.562 Pain in left knee
CPT/HCPCS: 36415; 71046; 73564; 80053; 80061; 81001; 81003; 82043; 82306; 82570; 82607; 82746; 83036; 84443; 85025; 85652

== ENCOUNTER → 2025-11-08 08:31 | Outpatient (BNV) | payer OTHER, SELFPAY | PROVIDERS: PCP Internal Medicine; Visit Provider Radiology Diagnostic Radiology | DX: M17.0 Bilateral primary osteoarthritis of knee (principal); J84.10 Pulmonary fibrosis, unspecified; J98.4 Other disorders of lung | CPT/HCPCS: 71046; 73564 ==